=== PATIENT | male | born 1950 | race Caucasian/White ===

== ENCOUNTER 2023-07-31 13:33 | Outpatient (OUT) | payer MEDICARE, OTHER, SELFPAY ==
--- NOTE | 2023-07-31 14:13 | P.CN_ITS ---
Consult Note: HPI Data of Consult Patient: new to practice Consult date: 07/31/23 Requesting Physician: Tara Lozada NP Primary Care Provider: ZAYRA AQUINO Consult Narrative Reason for consult: establish Narrative: Michael Vaughn a pleasant 73 year old male presents for evaluation and management of chronic low back pain. Onset many years ago worsening over time. At todays visit pain 2-3/10 in low back without radiculopathy, intensifies to 7-8/10 at times. Pain is worst with twisting, pulling, pushing, bending, stairs, activity, standing, walking. Pain improved with heat, sitting, massage. Patient is a diabetic. Finds mild benefit to motrin, tizanidine, and chiropractor. Patient has been evaluated by Dr Denney who thinks patient is a candidate for right knee replacement when he is ready. Patient has utilized medical marijuana in the past for anxiety and pain but this caused falls. Patient has had two falls with injury to head and right arm in the last month, patient reports he trips over uneven surfaces. cc:: CC: Tara Lozada NP Review of Systems ROS Status of ROS 10 or more systems reviewed and unremark able except as noted in history and below Musculoskeletal Reports: back pain, extremity pain and extremity swelling Exam Constitutional Documenting provider has reviewed patient's vital signs: yes Common normals: no apparent distress, oriented x3, healthy appearing, alert and well nourished General appearance: cooperative HENMT Common normals: normocephalic, hearing grossly normal bilaterally and moist oral mucous membranes Head and scalp: normocephalic Eye Common normals: PERRL Pupil: PERRL Neck & C-Spine Common normals: full ROM General: normal visual inspection Cervical spine: cervical ROM normal, pain with cervical ROM and paracervical muscle tenderness Chest Common normals: inspection of chest normal Respiratory Common normals: normal respiratory effort, no retractions and no use of accessory muscles Back & Pelvis Lumbar spine/lower back: ROM limited, pain with ROM and straight leg raise negative bilaterally Extremity Other: right arm nonpitting edema, pulses intact bilaterally no discoloration of arm/hand bruising and purple discoloration to right hand, patient denies numbness tingling weakness, popping sensation with flexion, extension, rotation Neuro Common normals: oriented x3, CN's II-XII intact bilaterally, moves all extremities, no focal motor deficits, no sensory deficits noted and deep tendon reflexes 2+ bilaterally Sensorium/orientation: alert Motor exam: strength 5/5 throughout and no movement abnormalities noted Psych Common normals: mental status grossly normal, thought process normal, cooperative, affect normal, speech normal and activity/motor behavior normal Speech: normal speech Thought process: normal thought process Results Additional Findings Additional findings: I have checked an OARRS report on this patient today and there are no aberrancies noted in the prescribing history.?? A drug screen was completed and reviewed within the last year, and if there has not been a drug screen completed we ordered one today to monitor higher risk, state monitored pain medication use. As part of providing excellent, safe, comprehensive care, the following was completed at our patient's visit: 1. A medication reconciliation and review to ensure accurate knowledge of current/active medications, including asking our patients to inform us about any krae-urn-dusmtme medications or herbal remedies/nutritional supplements/alternative remedies. 2. A review to specifically ensure our patients have had annual screening for: elevated body mass index (BMI), tobacco use, screening for depression, and screening for unhealthy alcohol use. When screening is concerning, patients are provided with education and the specific recommendation to discuss the concerning health issue and treatment options with their primary care provider. Assessment and Plan Assessment and Plan (1) Edema of right forearm: (2) Cervical spondylosis: (3) Lumbar spondylosis: (4) Fall: Assessment and Plan: 2 falls with head impact no LOC right arm nonpitting edema, pulses intact bilaterally no discoloration of arm/hand bruising and purple discoloration to right hand, patient denies numbness tingling weakness, popping sensation with flexion, extension, rotation. Patient utilizes both arms to stand and with two recent falls I recommend ER evaluation of right arm Qualifiers: Encounter type: initial encounter Qualified Code(s): W19.XXXA - Unspecified fall, initial encounter Plan cervical spine and lumbar spine xray with flexion and extension 2 falls with head impact no LOC right arm nonpitting edema, pulses intact bilaterally no discoloration of arm/hand bruising and purple discoloration to right hand, patient denies n umbness tingling weakness, popping sensation with flexion, extension, rotation. Patient utilizes both arms to stand and with two recent falls I recommend ER evaluation of right arm. I spoke to Jenna PEARL in ER regarding patient. f/u 1 week to review xrays
== END 2023-07-31 13:34 | disposition home or self-care (01) ==
LOC: PM 13:34
PROVIDERS: PCP Family Medicine; Visit Provider Nurse Practitioner
DX: M47.816 Spondylosis without myelopathy or radiculopathy, lumbar region (principal); M47.812 Spondylosis without myelopathy or radiculopathy, cervical region; R60.0 Localized edema; Z91.81 History of falling
CPT/HCPCS: G0463

== ENCOUNTER 2023-07-31 14:35 | Emergency (ER) | payer MEDICARE, OTHER, SELFPAY ==
[2023-07-31 14:38] VITALS: BP 149/89; PULSE 67; RESP 16; TEMP 36.9; O2SAT 99; BMI 30.4
--- NOTE | 2023-07-31 14:45 | XR_ITS ---
The [address] [address] Patient Name: ANGELIC CABRERA MRN: [id number] date: 1950 Sex: M Assigned Patient Location: ER Current Patient Location: ER Accession/Order Number: [id number] Exam Date: 07/31/2023 14:53 Report Date: 07/31/2023 15:22 At the request of: NATALIE PEAÑ Procedure: XR elbow RT min 3V EXAM: XR forearm RT 2V, XR elbow RT min 3V TECHNIQUE: PA and lateral views right forearm. AP, lateral and oblique views right elbow HISTORY: fall COMPARISON: None. FINDINGS: No fracture or dislocation. Severe soft tissue swelling most significant dorsally over the forearm and elbow. Moderate spurring of the elbow. XR/XR elbow RT min 3V IMPRESSION: No acute fracture or dislocation. Electronically authenticated by: DUDLEY NEGRON Date: 07/31/2023 15:22
--- NOTE | 2023-07-31 14:45 | CT_ITS ---
[address] [address] Patient Name: ANGELIC CABRERA MRN: [id number] date: 1950 Sex: M Assigned Patient Location: ER Current Patient Location: Accession/Order Number: [id number] Exam Date: 07/31/2023 14:53 Report Date: 07/31/2023 15:15 At the request of: NATALIE PEÑA Procedure: CT cervical spine wo con EXAMINATION: CT cervical spine wo con TECHNIQUE: Axial CT images were obtained through the cervical spine. Sagittal and coronal reformatted images were also obtained. Dose reduction techniques were achieved by using automated exposure control and/or adjustment of mA and/or kV according to patient size and/or use of iterative reconstruction technique. HISTORY: fall. COMPARISON: None. FINDINGS: Bones: No fracture Alignment: No traumatic subluxation. Arthritic changes: Moderate to severe spondylosis of the mid and lower cervical spine. Degenerative changes of the anterior C1 to articulation and bilaterally at the craniovertebral junction. Disc spaces: No gross disc herniation given limitation of CT scan. Soft tissues: No soft tissue mass or large hematoma. CT/CT cervical spine wo con IMPRESSION: No acute fracture or subluxation. Electronically authenticated by: DUDLEY NEGRON Date: 07/31/2023 15:15
--- NOTE | 2023-07-31 14:45 | CT_ITS ---
[address] [address] Patient Name: ANGELIC CABRERA MRN: [id number] date: 1950 Sex: M Assigned Patient Location: ER Current Patient Location: ER Accession/Order Number: [id number] Exam Date: 07/31/2023 14:53 Report Date: 07/31/2023 15:14 At the request of: NATALIE PEÑA Procedure: CT head/brain wo con EXAM: CT head/brain wo con CLINICAL INDICATION: fall COMPARISON: None TECHNIQUE: Axial CT images of the brain were obtained without contrast. Coronal and sagittal reformats were obtained. Dose reduction techniques were achieved by using automated exposure control and/or adjustment of mA and/or kV according to patient size and/or use of iterative reconstruction technique. FINDINGS: No intracranial hemorrhage, extra-axial fluid collection, hydrocephalus, midline shift, or acute large vessel territory infarction. No other mass effect. Mild patchy periventricular hypoattenuation is likely on the basis of chronic microvascular angiopathic changes. Mild symmetric global volume loss without lobar predominance. Commensurate prominence of the ventricular system. Basal cisterns are patent. No calvarial fracture. Normal soft tissues. Paranasal sinuses and mastoid air cells are well-aerated. CT/CT head/brain wo con IMPRESSION: No acute intracranial process. Electronically authenticated by: BRENT BAILEY Date: 07/31/2023 15:14
--- NOTE | 2023-07-31 14:45 | XR_ITS ---
The [address] [address] Patient Name: ANGELIC CABRERA MRN: [id number] date: 1950 Sex: M Assigned Patient Location: ER Current Patient Location: Accession/Order Number: [id number] Exam Date: 07/31/2023 14:53 Report Date: 07/31/2023 15:22 At the request of: NATALIE PEÑA Procedure: XR forearm RT 2V EXAM: XR forearm RT 2V, XR elbow RT min 3V TECHNIQUE: PA and lateral views right forearm. AP, lateral and oblique views right elbow HISTORY: fall COMPARISON: None. FINDINGS: No fracture or dislocation. Severe soft tissue swelling most significant dorsally over the forearm and elbow. Moderate spurring of the elbow. XR/XR forearm RT 2V IMPRESSION: No acute fracture or dislocation. Electronically authenticated by: DUDLEY NEGRON Date: 07/31/2023 15:22
--- NOTE | 2023-07-31 14:46 | ED_ITS ---
HPI - General Adult General Chief complaint: Extremity Injury, Upper Stated complaint: SWOLLEN HAND Time Seen by Provider: 07/31/23 14:41 Source: patient Mode of arrival: walk-in History of Present Illness HPI narrative: Patient is a 73-year-old male who presents to the emergency department for the evaluation of swelling and injury to the right arm. Patient states he fell approximately 6 days ago at home and fell backward hitting the back of his head. He reports continued pain to the neck. He was not evaluated after falling. He states he landed on his right elbow as well. He complains of pain to the elbow and forearm. He was seen at pain management today and referred to the ER for evaluation. He denies any pain to the hand although he is noted to have significant diffuse swelling of the elbow, right forearm and hand. No blood thinner usage. He denies visual changes or vomiting. He is able to ambulate. Pain is worse with range of motion at the right elbow. Related Data Home Medications Medication Instructions Recorded Confirmed buspirone 15 mg tablet 15 mg PO BID 07/31/23 07/31/23 carvedilol 6.25 mg tablet 6.25 mg PO BID 07/31/23 07/31/23 hydrochlorothiazide 25 mg tablet 25 mg PO DAILY 07/31/23 07/31/23 tamsulosin 0.4 mg capsule (Flomax) 0.4 mg PO DAILY 07/31/23 07/31/23 tizanidine 4 mg tablet 4 mg PO BID PRN muscle spasticity 07/31/23 07/31/23 venlafaxine 37.5 mg 37.5 mg PO DAILY 07/31/23 07/31/23 capsule,extended release 24 hr (Effexor XR) Previous Rx's Medication Instructions Recorded hydrocodone 5 mg-acetaminophen 325 1 tab PO Q6H PRN pain #12 tabs 07/31/23 mg tablet Allergies Allergy/AdvReac Type Severity Reaction Status Date / Time No Known Drug Allergies Allergy Verified 07/31/23 14:41 Review of Systems ROS Constitutional Denies: fever or chills Ears, nose, mouth, and throat Denies: throat pain Cardiovascular Denies: chest pain Respiratory Denies: shortness of breath Gastrointestinal Denies: nausea or vomiting Musculoskeletal Reports: neck pain, extremity pain, extremity swelling, joint pain, limited range of motion and joint swelling; Denies: back pain Integumentary/Breast Denies: rash Neurological Denies: headache Endocrine Denies: excessive urination Hematologic/Lymphatic Denies: easy bruising or easy bleeding Exam Narrative Exam Narrative: Gen.: Awake, alert, in no distress Head: Normocephalic, atraumatic ENT: Moist mucous membranes; Normal range of motion at the cervical spine with diffuse mild tenderness of the paraspinal muscles Respiratory: No respiratory distress Extremities: Joint effusion noted to the right posterior elbow with diffuse swelling of the right elbow, forearm and right hand. No bony tenderness of the right hand or wrist. 2+ right radial pulse. Diffusely tender to palpation at the right elbow, pain with range of motion of flexion and extension at the right elbow. Psych: Normal mood and affect Neuro: No focal neuro deficit Skin: Warm, dry, intact Constitutional Vital Signs, click to edit/add: Last Vital Signs Temp 98.4 F 07/31/23 14:38 Pulse 67 07/31/23 14:38 Resp 16 07/31/23 14:38 BP 149/89 H 07/31/23 14:38 Pulse Ox 99 07/31/23 14:38 O2 Del Method Room Air 07/31/23 14:38 Course Vital Signs Vital signs: Vital Signs Temperature 98.4 F 07/31/23 14:38 Pulse Rate 67 07/31/23 14:38 Respiratory Rate 16 07/31/23 14:38 Blood Pressure 149/89 H 07/31/23 14:38 Pulse Oximetry 99 07/31/23 14:38 Oxygen Delivery Method Room Air 07/31/23 14:38 Temperature 98.4 F 07/31/23 14:38 Pulse Rate 67 07/31/23 14:38 Respiratory Rate 16 07/31/23 14:38 Blood Pressure 149/89 H 07/31/23 14:38 Pulse Oximetry 99 07/31/23 14:38 Oxygen Delivery Method Room Air 07/31/23 14:38 Medical Decision Making MDM Narrative Medical decision making narrative: Patient with a benign exam other than right upper extremity swelling to the forearm. He declined pain medication in the ER. He is alert and oriented, ambulatory and in no distress with stable vital signs. CT of the C-spine and head are unremarkable per the radiologist. Radiologist read the right elbow x- ray and right forearm x-rays is negative as well. These x-rays were reviewed by myself and Dr. Mcclain, we noted a posterior fat pad and anterior sail sign combined with the patient's joint effusion and significant swelling, we are concerned he has an occult right elbow fracture. Patient was made aware of this. He would like to follow-up with Dr. Denney. He was placed in a long posterior splint of the right upper extremity and sling and remains neurovascularly intact. He was encouraged to elevate the arm, follow-up with orthopedics and return to the ER if symptoms change or worsen. Short course of analgesics was sent for home. Medical Records Medical records reviewed: Yes I reviewed the patient's medical records Imaging Data CT scan - head: Attestation: I have reviewed the pertinent imaging results. Radiologist's impression: ITS Impressions Cervical Spine CT 07/31/23 14:45 IMPRESSION: No acute fracture or subluxation. Electronically authenticated by: DUDLEY NEGRON Date: 07/31/2023 15:15 Elbow X-Ray 07/31/23 14:45 IMPRESSION: No acute fracture or dislocation. Electronically authenticated by: DUDLEY NEGRON Date: 07/31/2023 15:22 ADDENDUM: 07/31/23 1538 IMPRESSION: No acute fracture or dislocation. Electronically authenticated by: DUDLEY NEGRON Date: 07/31/2023 15:35 Forearm X-Ray 07/31/23 14:45 IMPRESSION: No acute fracture or dislocation. Electronically authenticated by: DUDLEY NEGRON Date: 07/31/2023 15:22 ADDENDUM: 07/31/23 1538 IMPRESSION: No acute fracture or dislocation. Electronically authenticated by: DUDLEY NEGRON Date: 07/31/2023 15:[address] 07/31/23 14:45 IMPRESSION: No acute intracranial process. Electronically authenticated by: BRENT BAILEY Date: 07/31/2023 15:14 Discharge Plan Discharge Chief Complaint: Extremity Injury, Upper Clinical Impression: Closed fracture of right elbow, Effusion of elbow joint, right Patient Disposition: Home, Self-Care Time of Disposition Decision: 15:44 Condition: Good Prescriptions / Home Meds: New hydrocodone-acetaminophen 5-325 mg tablet 1 tab PO Q6H PRN (Reason: pain) Qty: 12 0RF Rx Instructions: DX: M25.521 No Action tizanidine 4 mg tablet 4 mg PO BID PRN (Reason: muscle spasticity) tamsulosin [Flomax] 0.4 mg capsule 0.4 mg PO DAILY venlafaxine [Effexor XR] 37.5 mg capsule,extended release 24hr 37.5 mg PO DAILY carvedilol 6.25 mg tablet 6.25 mg PO BID Rx Instructions: must administer with a meal/food buspirone 15 mg tablet 15 mg PO BID hydrochlorothiazide 25 mg tablet 25 mg PO DAILY Instructions: Elbow Fracture (ED), How to Use a Sling (ED), Swollen Joint (ED) Stand Alone Forms: Portal Instructions Referrals: Shamar Denney MD [Physician] - 1 week ([phone]) ZAYRA AQUINO [Primary Care Provider] - 1 week
== END 2023-07-31 15:58 | disposition home or self-care (01) ==
PROVIDERS: Emergency Provider Emergency Medicine; PCP Family Medicine
DX: M47.816 Spondylosis without myelopathy or radiculopathy, lumbar region (principal); M47.812 Spondylosis without myelopathy or radiculopathy, cervical region; R60.0 Localized edema; S42.401A Unspecified fracture of lower end of right humerus, initial encounter for closed fracture; M25.421 Effusion, right elbow; Z79.899 Other long term (current) drug therapy; W19.XXXA Unspecified fall, initial encounter
CPT/HCPCS: 29105; 70450; 72125; 73080; 73090; 99284; G0463

== ENCOUNTER 2023-08-07 15:03 | Outpatient (OUT) | payer MEDICARE, OTHER, SELFPAY ==
--- OUTSIDE RECORDS SUMMARY | 2023-08-07 15:07 | XMS_ITS | CCD ---
Author Name Unknown Address [address] [place] [address] Organization [facility] Care Team Providers Care Policy Intern Name Role Phone KENIA, RUGEN Admitting Unavailable KENIA RUGEN Attending Unavailable MISC, DOCTOR Primary Care Unavailable KENIA, RUGEN Consulting Unavailable REZNO MONACORI Admitting Unavailable MARY MONACO Attending Unavailable KENIA, RUGEN Primary Care Unavailable MARY MONACO Consulting Unavailable Mary, Giorgio Attending Provider [phone] Mary Monaco Primary Care Provider MARY MONACO Attending Unavailable LORETO LE Attending Unavailable MARY MONACO Attending Unavailable Unavailable Unavailable Unavailable Problems Problem Classification Problem Date Documented Da te Episodic/Chronic Immunizations and screening for infectious disease (4 sources) Encounter for screening for other viral diseases; Translations: [ENC SCREENING FOR OTH VIRAL DZ] Onset: 02-25-2020 Episodic Results Test Name Value Interpretation Reference Range Facil ity CREATININEon 04-26-2020 Creatinine [Mass/Vol] 0.87 mg/dL Normal 0.66-1.25 [facility] Comment on above: Performed By: #### C FRANSISCO #### [facility] [address] [address] Courtney Claudio Creatinine [Mass/Vol] mg/dL Normal >=60 [facility] Comment on above: Performed By: #### C FRANSISCO #### [facility] [address] [id number] Courtney Colemanen COVID-19 PCRon 02-26-2020 SARS-CoV-2, RONEL Not Detected Normal Not Detected [facility] Comment on above: Result Comment: This test was developed and its performance characteristics determined by [facility]. This test has not been FDA cleared or approved. This test has been authorized by FDA under an Emergency Use Authorization (EUA). This test is only authorized for the duration of time the declaration that circumstances exist justifying the authorization of the emergency use of in vitro diagnostic tests for detection of SARS-CoV-2 virus and/or diagnosis of COVID-19 infection under section 564(b)(1) of the Act, 21 U.S.C. 360bbb-3(b)(1), unless the authorization is terminated or revoked sooner. When diagnostic testing is negative, the possibility of a false negative result should be considered in the context of a patient's recent exposures and the presence of clinical signs and symptoms consistent with COVID-19. An individual without symptoms of COVID-19 and who is not shedding SARS-CoV-2 virus would expect to have a negative (not detected) result in this assay. Performed By: #### C VDPCR #### [facility] [address] [place] [address] Courtney Claudio Encounters Encounter Date Encounter Type Care Provider Facility Start: 08-04-2023 End: 08-04-2023 ambulatory LORETO Strickland APLING Not Available Start: 07-16-2023 End: 07-16-2023 ambulatory MARY MONACO Not Available Start: 07-03-2023 End: 07-03-2023 ambulatory MARY MONACO Not Available Start: 09-13-2020 End: 09-13-2020 [facility] [address] Start: 05-02-2020 [facility] Start: 04-26-2020 End: 04-27-2020 Patient encounter procedure MARY MONACO Facility:[facility] Start: 02-25-2020 End: 02-26-2020 Patient encounter procedure RUGALEJANDRINA MCKEONA Facility:[facility] Encounter for preprocedural laboratory examination [facility] Payers Date Payer Category Payer Unknown [id number] 1957 Medicare [id number] 1957 Private Health Insurance [id number] 1950 Unknown [id number] [id number] 1950 Unknown [id number] [id number] [id number] 1950 Unknown [id number] 2.16.84 [id number] 1950 Unknown [id number] 1950 Unknown [id number] Self-pay Self Pay [id number] Unknown Self Pay [id number] Social History Date Type Detail Facility Tobacco smoking stat [facility] Unknown if ever smoked [facility] Start: 1950 Sex Assigned At Male [facility] Goals Date Patient Goal Desired Activity /State Summary Purpose Family History No Family History Records FoundNo Family History Records Found Advance Directives No Advanced Directives Records Found Advance Directive Response Recorded Date/ Time Advance Directives No May 4:12pm Chief Complaint and Reason for Visit Chief Complaint R leg Lymphedema Assessments No Assessments Information Available Additional Source Comments (unrecognized sect ion and content) No Status Records FoundNo Status Records Found INFORMATION SOURCE (unrecogn ized section and content) DATE CREATED AUTHOR 05/03/2020 [facility] DATE CREATED AUTHOR AUTHOR'S ORGANIZ ATION 08/04/2023 [facility] FOR RECORDS PERTAINING TO PATIENTS WHO ARE OR HAVE BEEN ENROLLED IN A CHEMICAL DEPENDENCY/SUBSTANCEABUSE PROGRAM, SOME INFORMATION MAY BE OMITTED. This clinical summary was aggregated from multiple sources. Caution should be exercised in using it in the provision of clinical care. This summary normalizes information from multiple sources, and as a consequence, information in this document may materially change the coding, format and clinical context of patient data. In addition, data may be omitted in some cases. CLINICAL DECISIONS SHOULD BE BASED ON THE PRIMARY CLINICAL RECORDS. [facility] [employer] [facility]. provides no warranty or guarantee of the accuracy or completeness of information in this document.
== END 2023-08-07 15:04 | disposition home or self-care (01) ==
LOC: PM 15:03
PROVIDERS: PCP Family Medicine; Visit Provider Nurse Practitioner
DX: M54.2 Cervicalgia (principal)

== ENCOUNTER 2023-08-07 15:22 | Outpatient (OUT) | payer MEDICARE, OTHER, SELFPAY ==
--- NOTE | 2023-08-07 15:33 | XR_ITS ---
The [address] [id number] Patient Name: ANGELIC CABRERA MRN: [id number] date: 1950 Sex: M Assigned Patient Location: [facility] Current Patient Location: [facility] Accession/Order Number: [id number] Exam Date: 08/07/2023 15:46 Report Date: 08/07/2023 19:08 At the request of: ANDRES REDDY Procedure: XR lumbar spine 6V w bending EXAM: XR lumbar spine 6V w bending HISTORY: lumbar back pain COMPARISON: None. TECHNIQUE: 7 view study FINDINGS: Vertebral bodies are normal in height. There is disc space narrowing at L4-5 and L5-S1 with endplate sclerosis and anterior osteophytosis. More moderate disc space narrowing at L2-3 and L3-4. There is facet arthropathy at L3-4, L4-5, and L5-S1. Comparison of flexion and extension views shows limited motion without visible segmental instability. XR/XR lumbar spine 6V w bending IMPRESSION: Multilevel lumbar spondylosis. Electronically authenticated by: Lucia PEREIRA Date: 08/07/2023 19:08
--- OUTSIDE RECORDS SUMMARY | 2023-08-07 15:37 | XMS_ITS | CCD ---
Author Name Unknown Address [address] [place] [address] Organization [facility] Care Team Providers Care Meat Specialist Name Role Phone KENIA, RUGEN Admitting Unavailable KENIA RUGEN Attending Unavailable MISC, DOCTOR Primary Care Unavailable KENIA, RUGEN Consulting Unavailable RENZO MONACORI Admitting Unavailable MARY MONACO Attending Unavailable KENIA, RUGEN Primary Care Unavailable MARY MONACO Consulting Unavailable Mary, Giorgio Attending Provider Mary Monaco Primary Care Provider MARY MONACO [...] 04-26-2020 Creatinine [Mass/Vol] 0.87 mg/dL Normal 0.66-1.25 [facility] Comment on above: Performed By: #### C FRANSISCO #### [facility] [address] [address] Courtney Claudio Creatinine [Mass/Vol] mg/dL Normal >=60 [facility] Comment on above: Performed By: #### C FRANSISCO #### [facility] [address] [id number] Courtney Colemanen COVID-19 PCRon 02-26-2020 SARS-CoV-2, RONEL Not Detected Normal Not Detected [facility] Comment on above: Result Comment: This test was developed and its performance characteristics determined by [employer]. This test has not been FDA cleared [...] assay. Performed By: #### C VDPCR #### [facility] [address] [place] [address] Courtney Claudio Encounters Encounter Date Encounter Type Care Provider Facility Start: 08-04-2023 End: 08-04-2023 ambulatory LORETO Strickland APLING Not Available Start: 07-16-2023 End: 07-16-2023 ambulatory MARY MONACO Not Available Start: 07-03-2023 End: 07-03-2023 ambulatory MARY MONACO Not Available Start: 09-13-2020 End: 09-13-2020 [facility]charged [facility]Director [employer] [address] Start: 05-02-2020 [facility] Start: 04-26-2020 End: 04-27-2020 Patient encounter procedure MARY MONACO Facility:[facility]1 Start: 02-25-2020 End: 02-26-2020 Patient encounter procedure RUGALEJANDRINA MCKEONA Facility:[facility]1 Encounter for preprocedural laboratory examination [facility] Payers Date Payer Category Payer Unknown [id number] 1957 Medicare [id number] 1957 Private Health Insurance [id number] 1950 Unknown [id number] 2.16.84 [id number] 1950 Unknown [id number] 2.16.84 [id number] 1950 Unknown [id number] 2.16.84 [id number] 1950 Unknown [id number] 2.16.840 .[id number] 1950 Unknown [id number] [id number] .[id number] Self-pay Self Pay [id number] Unknown Self Pay [id number] Social History Date Type Detail Facility Tobacco smoking stat [facility] Unknown if ever smoked [facility] Start: 1950 Sex Assigned At Male [facility] Goals Date Patient Goal Desired [...] DATE CREATED AUTHOR AUTHOR'S ORGANIZ ATION 08/04/2023 [facility] dical Specialists [facility] FOR RECORDS PERTAINING TO PATIENTS WHO ARE [...] BE BASED ON THE PRIMARY CLINICAL RECORDS. [facility] [facility]. provides no warranty or guarantee of the accuracy or completeness of information in this document.
== END 2023-08-07 15:23 | disposition home or self-care (01) ==
LOC: RAD 15:23
PROVIDERS: PCP Family Medicine; Visit Provider Nurse Practitioner
DX: M47.816 Spondylosis without myelopathy or radiculopathy, lumbar region (principal)
CPT/HCPCS: 72114

== ENCOUNTER 2023-08-18 09:46 | Day surgery (SDC) | payer MEDICARE, OTHER, SELFPAY ==
--- OUTSIDE RECORDS SUMMARY | 2023-08-18 09:50 | XMS_ITS | CCD ---
Author Name Unknown Address [address] [place] [address] Organization [facility] Care Team Providers Care Leather Tooler Name Role Phone KENIA, RUGEN Admitting Unavailable [...] 04-26-2020 Creatinine [Mass/Vol] 0.87 mg/dL Normal 0.66-1.25 [facility] Comment on above: Performed By: #### C FRANSISCO #### [facility] [address] [address] Courtney Claudio Creatinine [Mass/Vol] mg/dL Normal >=60 [facility] Comment on above: Performed By: #### C FRANSISCO #### [facility] [address] [id number] Courtney Colemanen COVID-19 PCRon 02-26-2020 SARS-CoV-2, RONEL Not Detected Normal Not Detected [facility] Comment on above: Result Comment: This test was developed and its performance characteristics determined by [employer]. This test has not been FDA cleared [...] assay. Performed By: #### C VDPCR #### [facility] [address] [place] [address] Courtney Claudio Encounters Encounter Date Encounter Type Care Provider Facility Start: 08-04-2023 End: 08-04-2023 ambulatory LORETO Strickland APLING Not Available Start: 07-16-2023 End: 07-16-2023 ambulatory MARY MONACO Not Available Start: 07-03-2023 End: 07-03-2023 ambulatory MARY MONACO Not Available Start: 09-13-2020 End: 09-13-2020 Discharged [facility]Break Up Worker [address] Start: 05-02-2020 [facility] Start: 04-26-2020 End: 04-27-2020 Patient encounter procedure MARY MONACO Facility:[facility]1 Start: 02-25-2020 End: 02-26-2020 Patient encounter procedure RUGALEJANDRINA MCKEONA Facility:[facility]1 Encounter for preprocedural laboratory examination [facility] Payers Date Payer Category Payer Unknown [id number] 1957 Medicare [id number] 1957 Private Health Insurance [id number] 1950 Unknown [id number] 2.16.84 [id number] 1950 Unknown [id number] 2.16.84 [id number] 1950 Unknown [id number] 2.16.84 [id number] 1952 Unknown [id number] 2.16.840 .[id number] 1950 Unknown [id number] 2.16.840 .[id number] Self-pay Self Pay [id number] Unknown Self Pay [id number] Social History Date Type Detail Facility Tobacco smoking stat [facility] Unknown if ever smoked [facility] Start: 1950 Sex Assigned At Male F [facility] Goals Date Patient Goal Desired [...] DATE CREATED AUTHOR AUTHOR'S ORGANIZ ATION 08/04/2023 [facility] dical Specialists [facility] FOR RECORDS PERTAINING TO PATIENTS [...] BE BASED ON THE PRIMARY CLINICAL RECORDS. [facility] [employer] [facility]. provides no warranty or guarantee of the accuracy or completeness of information in this document.
[2023-08-18 10:22] VITALS: BP 158/84; PULSE 55; RESP 16; TEMP 36.1; O2SAT 100
[2023-08-18] MEDS: LIDOCAINE HCL 2% PF 100 MG/5 ML VIAL 2 ML INJ (11:06)
[2023-08-18] MEDS: BUPIVACAINE HCL 0.25% PF 25 MG/10 ML VIAL 8 ML INJ (11:06)
[2023-08-18 11:07] VITALS: BP 145/73; BP 154/78; PULSE 59; RESP 18; O2SAT 93; O2SAT 94
--- NOTE | 2023-08-18 11:08 | W.PM.PROCNOT ---
Date of procedure: 08/18/23 Pre-op diagnosis: Lumbar spondylosis Post-op diagnosis: same as pre-op Procedure: Procedure: Bilateral L4-5, L5-S1 medial branch block Medications: Bupivacaine 0.25% 6cc The patient was seen and examined in the preoperative holding area.? An informed consent was obtained and placed on the chart.? The patient was brought to the medical procedure unit and placed in the prone position.? A timeout was completed verifying correct patient, procedure site, positioning, plan, and special equipment.? Using aseptic technique, the needle was placed at left L4. Under direct fluoroscopic visualization a Quincke-tipped spinal needle was advanced to the junction of the superior articulating process with the transverse process at the designated medial branch segment.? Preceded by negative aspiration, the above-mentioned injectate was placed in 1 mL aliquots.? The procedure was repeated at left L5, S1.? The needle was removed and insertion site was covered. The same procedure, at the same levels, was completed on the right side. The patient was taken to the postprocedural recovery area and monitored for an appropriate length of time before found suitable for discharge in the company of a responsible adult. Anesthesia: Local Surgeon: Bogdan Calle Pathology: none sent Condition: stable Disposition: no change
== END 2023-08-18 11:14 | disposition home or self-care (01) ==
LOC: SURGOUT 09:46
PROVIDERS: PCP Family Medicine; Visit Provider Anesthesiology
DX: M47.816 Spondylosis without myelopathy or radiculopathy, lumbar region (principal)
CPT/HCPCS: 64493; 64494; J0665

== ENCOUNTER 2023-09-03 12:32 | Outpatient (OUT) | payer MEDICARE, OTHER, SELFPAY ==
--- OUTSIDE RECORDS SUMMARY | 2023-09-03 12:36 | XMS_ITS | CCD ---
Author Name Unknown Address [address] [facility] [address] [place] [address] Organization [facility] Care Team Providers Care Director Of Child Welfare Services Name Role Phone ZAYRA AQUINO Admitting Unavailable ZAYRA AQUINO Attending Unavailable MISC, DOCTOR Primary Care Unavailable ZAYRA AQUINO Consulting Unavailable MARY MONACO Admitting Unavailable MARY MONACO Attending Unavailable ZAYRA AQUINO Primary Care Unavailable MARY MONACO Consulting Unavailable Giorgio Hernandez Attending Provider Mary Monaco Primary Care Provider aMry Monaco NP Unavailable MARY MONACO Attending Unavailable LORETO LE Attending Unavailable MARY MONACO Attending Unavailable LORETO LE Attending Unavailable LORETO LE Referring Unavailable Unavailable Unavailable Unavailable Medications Current Medications Medication Drug Class(es) Dates Sig (Normalized) Sig (Original) acetaminophen 325 mg / HYDROcodone bitartrate 5 mg oral tablet (3 sources) Opioid Agonist HYDROcodone-acet aminoph en ([place]) 5-325 MG tablet ALPRAZolam 0.25 mg oral tablet (3 sources) Benzodiazepine Start: 07-10-20 23 take 1 tablet by mouth three times daily as needed for anxiety ALPRAZolam (Xanax) 0.25 MG tablet Indications: Anxiety Take 1 tablet (0.25 mg) by mouth 3 (three) times a day as needed for anxiety 30 tablet 0 07/10/2023 Active carvedilol 12.5 mg oral tablet (3 sources) alpha-Adrenergic Ivelisse, beta-Adrenergic Ivelisse Start: 02-19-20 23 take 1 tablet by mouth twice daily carvedilol (Coreg) 12.5 MG tablet Indications: Hypertriglyceridemia (CMS/HCC) TAKE ONE TABLET BY MOUTH TWICE A DAY 200 tablet 3 02/18/2023 Active hydroCHLOROthiazide 12.5 mg oral capsule (3 sources) Thiazide Diuretic Start: 07-28-19 24 take 1 capsule by mouth once daily in the morning hydroCHLOROthiazide (Microzide) 12.5 MG capsule Indications: Hypertension, unspecified type (CMS/HCC) TAKE ONE CAPSULE BY MOUTH EVERY MORNING 90 capsule 0 07/28/2023 Active tamsulosin hydrochloride 0.4 mg oral capsule (3 sources) alpha-Adrenergic Ivelisse Start: 04-14-20 23 take 1 capsule by mouth once daily tamsulosin (Flomax) 0.4 MG 24 hr capsule Indications: Benign prostatic hyperplasia, unspecified whether lower urinary tract symptoms present TAKE ONE CAPSULE BY MOUTH DAILY 90 capsule 1 04/14/2023 Active tiZANidine 4 mg oral tablet (3 sources) Central alpha-2 Adrenergic Agonist Start: 07-22-19 24 take 1 tablet by mouth every six hours as needed for muscle spasms tiZANidine (Zanaflex) 4 MG tablet Indications: Muscle spasm of back TAKE ONE TABLET BY MOUTH EVERY 6 HOURS NEEDED FOR MUSCLE SPASMS 30 tablet 0 07/22/2023 Active venlafaxine 75 mg oral tablet (3 sources) Serotonin and Norepinephrine Reuptake Inhibitor Start: 08-18-19 24 take 1 tablet by mouth three times daily at mealtime venlafaxine (Effexor) 75 MG tablet Indications: Adjustment disorder with anxiety (CMS/HCC) TAKE ONE TABLET BY MOUTH THREE TIMES A DAY WITH FOOD 300 tablet 0 08/18/2023 Active Completed/Discontinued Medications Medication Drug Class(es) Dates Sig (Normalized) Sig (Original) busPIRone hydrochloride 5 mg oral tablet (3 sources) Start: 04-01-2023 End: 09-01-2023 take 1 tablet by mouth four times daily as needed for anxiety busPIRone (Buspar) 5 MG tablet Indications: Adjustment disorder with anxiety (CMS/HCC) Take 1 tablet (5 mg) by mouth 4 (four) times a day as needed (anxiety). 120 tablet 3 04/01/2023 09/01/2023 Discontinued (Med list cleanup) Problems Active Problems Problem Classification Problem Date Documented Date Episodic/Chronic Acute and chronic tonsillitis (3 sources) Hypertrophy of tonsils AND adenoids; Translations: [Hypertrophy of tonsils with hypertrophy of adenoids] Onset: 02-18-2023 02-18-2023 Chronic Adjustment disorders (6 sources) Adjustment disorder with anxious mood; Translations: [Adjustment disorder with anxiety] Onset: 02-18-2023 02-18-2023 Chronic Alcohol-related disorders (6 sources) Alcohol abuse; Translations: [Alcohol abuse, uncomplicated] Onset: 02-18-2023 02-18-2023 Chronic Disorders of lipid metabolism (3 sources) Hypertriglyceridemia; Translations: [Pure hyperglyceridemia] Onset: 02-18-2023 02-18-2023 Chronic Essential hypertension (3 sources) Hypertensive disorder; Translations: [Essential (primary) hypertension] Onset: 02-18-2023 02-18-2023 Chronic Hyperplasia of prostate (3 sources) Benign prostatic hyperplasia; Translations: [Benign prostatic hyperplasia without lower urinary tract symptoms] Onset: 02-18-2023 02-18-2023 Chronic Immunizations and screening for infectious disease (4 sources) Encounter for screening for other viral diseases; Translations: [ENC SCREENING FOR OTH VIRAL DZ] Onset: 02-25-2020 Episodic Osteoarthritis (3 sources) Osteoarthritis of right knee joint; Translations: [Unilateral primary osteoarthritis, right knee] Onset: 02-18-2023 02-18-2023 Chronic Other nervous system disorders (3 sources) Carpal tunnel syndrome; Translations: [Carpal tunnel syndrome, unspecified upper limb] Onset: 02-18-2023 02-18-2023 Chronic Other non-traumatic joint disorders (2 sources) Pain in elbow; Translations: [Pain in right elbow] 08-28-2023 Episodic Other nutritional; endocrine; and metabolic disorders (3 sources) Disorder of carbohydrate metabolism; Translations: [Other disorders of intestinal carbohydrate absorption] Onset: 02-18-2023 02-18-2023 Chronic Other nutritional; endocrine; and metabolic disorders (3 sources) Morbid obesity; Translations: [Morbid (severe) obesity due to excess calories] Onset: 02-18-2023 02-18-2023 Chronic Residual codes; unclassified (3 sources) Sleep apnea; Translations: [Sleep apnea, unspecified] Onset: 02-18-2023 02-18-2023 Chronic Sprains and strains (2 sources) Unspecified sprain of right elbow, subsequent encounter; Translations: [Other specified aftercare] 08-28-2023 Episodic Superficial injury; contusion (2 sources) Contusion of right elbow; Translations: [Contusion of right elbow, subsequent encounter] 08-28-2023 Episodic Past or Other Problems Problem Classification Problem Date Documented Da te Episodic/Chronic Other acquired deformities (3 sources) Acquired spondylolisthesis ; Translations: [Spondylolisthesi s, site unspecified] Onset: 02-18-2023 02-18-2023 Episodic Other nervous system disorders (3 sources) Paresthesia; Translations: [Paresthesia of skin] Onset: 02-18-2023 02-18-2023 Episodic Results Test Name Value Interpretation Reference Range Facil ity XR Elbow - right 2 Viewson 0 09-01-2023 Imaging Result: September 01, 2023 x-rays AP and lateral of the right elbow demonstrate calcification at the proximal portion of the olecranon with osteophyte formation around the elbow consistent with arthritis. No fractures are noted. Impression: Osteoarthritis of the right elbow Ever Denney D.O. [facility] Radiology Study observation (narrative) [facility] XR Elbow - right 2 ViewsOrde red By: Shamar Denney on 09-01-2023 [facility] iPointercar e Work Phone: CREATININEon 04-26-2020 Creatinine [Mass/Vol] 0.87 mg/dL Normal 0.66-1.25 [facility] Comment on above: Performed By: #### C FRANSISCO #### [facility] [address] [place] [address] Courtney Claudio Creatinine [Mass/Vol] mg/dL Normal >=60 [facility] Comment on above: Performed By: #### C FRANSISCO #### [facility] [address] [place] [address] Courtney Claudio COVID-19 PCRon 02-26-2020 SARS-CoV-2, RONEL Not Detected Normal Not Detected [facility] Comment on above: Result Comment: This test was developed and its performance characteristics determined by [employer]. This test has not been FDA cleared [...] assay. Performed By: #### C VDPCR #### [facility] [address] [place] [address] Courtney Claudio Encounters Encounter Date Encounter Type Care Provider Facility Start: 09-01-2023 End: 09-01-2023 ambulatory LORETO LE Not Available Start: 09-01-2023 [employer] flowsheet Loreto simmons BOTTLE WASHING MACHINE OPERATOR Work Phone: [facility] Start: 09-01-2023 BamArbov[employer]o flowsheet Loreto simmons BOTTLE WASHING MACHINE OPERATOR Work Phone: [facility] Start: 09-01-2023 End: 09-01-2023 Office outpatient visit 15 minutes Loreto Le BOTTLE WASHING MACHINE OPERATOR Work Phone: [facility] Comment on above: Right elbow pain (Pr imary Dx); Contusion of right elbow, subsequent encounter; Sprain of right elbow, subsequent encounter Start: 08-04-2023 End: 08-04-2023 ambulatory LORETO LE Not Available Start: 07-16-2023 End: 07-16-2023 ambulatory MARY MONACO Not Available Start: 07-03-2023 End: 07-03-2023 ambulatory MARY MONACO Not Available Start: 09-13-2020 End: 09-13-2020 Discharged Recurring Giorgio Hernandez [facility] [address] Start: 05-02-2020 Encounter for preprocedural laboratory examination ZAYRA AQUINO [facility] Start: 04-26-2020 End: 04-27-2020 Patient encounter procedure MARY MONACO Facility:[facility] Start: 02-25-2020 End: 02-26-2020 Patient encounter procedure ZAYRA AQUINO Facility:[facility] Encounter for preprocedural laboratory examination ZAYRA AQUINO [facility] Procedures Date Procedure Procedure Detail Performing Clinician Start: 09-01-2023 Radex elbow 2 views Yudy Le BOTTLE WASHING MACHINE OPERATOR Work Phone: Start: 03-17-2015 Colonoscopy Loreto elise BOTTLE WASHING MACHINE OPERATOR Work Phone: Plan of Treatment Date Care Activity Detail Author Start: 03-17-2025 Screening for malign ant neoplasm of colon [facility] Start: 07-16-2024 Pneumococcal Vaccine : 65+ Years (2 - PCV) Pneumococcal Vaccine: 65+ Years (2 - PCV) [facility] Comment on above: Postponed from 07/30 (Patient Refused) Start: 01-18-2024 Influenza vaccination Influenza Vacc ine (#1) [facility] Comment on above: Postponed from 03/21 (Patient Refused) Start: 09-15-2023 End: 09-15-2023 Patient encounter procedure 09/15/2023 1:15 PM EST Office Visit [facility] [address] [place] [id number] Loreto Le, BRADEN [address] [place] [address] [facility] Start: 07-04-2023 Medicare Annual Wellness (AWV) Medicare Annual Wellness (AWV) [facility] Start: 09-28-2021 Screening for malign ant neoplasm of colon FIT-DNA [facility] Start: 1950 Screening for malign ant neoplasm of colon [facility] Immunizations Immunization Date Immunization Notes Care Provider Fa cility 07-11-2022 Influenza, High-dose Seasonal, Quadrivalent, Preservative Free Loreto Le NP Work Phone: [facility] 07-11-2022 influenza virus vacc ine, unspecified formulation Loreto Le NP Work Phone: [facility] 07-17-2021 Influenza, High-dose Seasonal, Quadrivalent, Preservative Free Loreto Le NP Work Phone: [facility] 07-17-2021 Pfizer Purple Cap SARS-CoV-2 Vaccination Loreto Le BOTTLE WASHING MACHINE OPERATOR Work Phone: [facility] 04-20-2020 influenza, high dose seasonal, preservative-free Loreto Le BOTTLE WASHING MACHINE OPERATOR Work Phone: [facility] 07-30-2017 influenza, injectabl e, quadrivalent, contains preservative Loreto Le BOTTLE WASHING MACHINE OPERATOR Work Phone: [facility] 07-30-2017 pneumococcal polysaccharide vaccine, 23 valent Loreto Le BOTTLE WASHING MACHINE OPERATOR Work Phone: [facility] Payers Date Payer Category Payer Unknown [employer]ARA[employer] [facility] [id number] 2022-Present [address] [place] [address] [id number] 2022 Unknown [id number] 2017 Medicare MEDICARE MEDICAR E PART B [id number] 2017-[place] [address] Medicare [id number] 1959 Medicare [id number] 1959 Private Health Insurance [id number] 1952 Unknown [id number] 1952 Unknown [id number] [id number] 1952 Unknown [id number] [id number] 1952 Unknown [id number] [id number] 1952 Unknown [id number] [id number] 1952 Unknown [id number] [id number] 1952 Unknown [id number] [id number] Self-pay Self Pay [id number] Unknown Self Pay [id number] Social History Date Type Detail Facility Tobacco smoking stat [facility] Unknown if ever smoked [facility] Start: 1950 Sex Assigned At Male F [facility] Start: 08-04-2023 Tobacco smoking stat [facility] Ex-smoker [facility] End: 07-21-2003 History of tobacco use Current smoker [facility] End: 07-21-2003 History of tobacco use Cigarette Smoker [facility] Start: 08-04-2023 Tobacco use and exposure Smokeless tobacco non-user [facility] Start: 08-04-2023 End: 09-01-2023 Alcohol intake Current drinker of alcohol (finding) [facility] Start: 08-04-2023 End: 09-01-2023 History of Social function [facility] Start: 08-04-2023 End: 09-01-2023 Tobacco use panel [facility] Start: 07-03-2023 Alcohol Comment caffeine yes t ype: coffee [facility] Start: 1950 Sex Assigned At Not on file [facility] Goals Date Patient Goal Desired Activity /State History of Present illness Narrative 09-01-2023 Loreto Le NP - 09/01/2023 1:15 PM EST Note Date & Type Note Facility 09-01-2023 History of Presen t illness Narrative Subjective Patient ID: Michael Vaughn is a 73 y.o. male. RT Elbow *cast off and xrays Pt is RT handed Pt fell 5 weeks 2 days ago (DOI 07/26/23) and landed on Rt elbow. Pt was placed in a long posterior splint and prescribed [place]. Presents in LAC. Removed today. Denies pain. Admits aspirin and Tyl prn. Denies N/T. Denies waking at night. Notes swelling to RT elbow, forearm and hand. Denies ice, heat and creams. No sx. He notes he is going to pain management for his lower back and getting injections. Notes he wants knee replacements and wants to make an appointment for Dr. Denney to replace them after he is done getting back injections. He is not sure when he will be done getting the injections TX: [facility]/ED/XR/07/31/2023, sling, posterior splint, norco, XRAYS [facility] RT elbow/FA, LAC, XR [facility] 09/01/23 Objective Ortho Exam Elbow Musculoskeletal Exam Inspection Right Ecchymosis: none Swelling: diffuse Swelling comment: elbow,FA Deformity: none Palpation Right Tenderness: present (over the olecranon) Range of Motion Right Active Extension: 30 Active Flexion: 130 Range of motion additional comments: Equal supination/pronation XR elbow 1 or 2 views right Imaging Result: September 01, 2023 x-rays AP and lateral of the right elbow demonstrate calcification at the proximal portion of the olecranon with osteophyte formation around the elbow consistent with arthritis. No fractures are noted. Impression: Osteoarthritis of the right elbow Ever Denney D.O. Assessment/Plan Encounter Diagnoses: ICD-10-CM 1. Right elbow pain M25.521 XR elbow 1 or 2 views right 2. Contusion of right elbow, subsequent encounter S50.01XD 3. Sprain of right elbow, subsequent encounter S53.401D May begin to work on gentle ROM of the elbow, f/U in 2 weeks, continue with bruce therapy, documented in this encounter [facility] Evaluation note Note Date & Type Note Facility Evaluation note Diagnosis Right elbow pain- Primary Pain in joint, upper arm Contusion of right elbow, subsequent encounter Sprain of right elbow, subsequent encounter documented in this encounter [facility] Summary Purpose Family History No Family History [...] content) DATE CREATED AUTHOR 05/03/2020 [facility] DATE CREATED AUTHOR AUTHOR'S TRENTON ATLEW 09/02/2023 [facility] Care Teams (unrecognized sec tion and content) Director Of Child Welfare Services Relationship Specialty Start Date End Date Mary Monaco BOTTLE WASHING MACHINE OPERATOR [address] [facility] [address] [place] [address] PCP - ACO Reach 12/12/22 Director Of Child Welfare Services Relationship Specialty Start Date End Date Mary Monaco BOTTLE WASHING MACHINE OPERATOR [address] [facility] [address] [place] [address] PCP - ACO Reach 12/12/22 FOR RECORDS PERTAINING TO PATIENTS WHO ARE [...] BE BASED ON THE PRIMARY CLINICAL RECORDS. [facility] [employer] [facility]. provides no warranty or guarantee of the accuracy or completeness of information in this document.
--- NOTE | 2023-09-03 12:54 | PM.CN ---
Consult Note: HPI Data of Consult Patient: new to practice Consult date: 07/31/23 Requesting Physician: Tara Lozada NP Primary Care Provider: ZAYRA AQUINO Consult Narrative Reason for consult: establish Narrative: Michael Vaughn a pleasant 73 year old male presents for evaluation and management of chronic low back pain. Onset many years ago worsening over time. At todays visit pain 4/10 in low back without radiculopathy, intensifies to 7-8/10 at times. Pain is worst with twisting, pulling, pushing, bending, stairs, activity, standing, walking. Pain improved with heat, sitting, massage. Patient is a diabetic. Finds mild benefit to motrin, tizanidine, and chiropractor. Patient has been evaluated by Dr Denney who thinks patient is a candidate for right knee replacement when he is ready. Patient has utilized medical marijuana in the past for anxiety and pain but this caused falls. Patient recently underwent bilateral L4-5 L5-S1 facet medial branch block #1 with 100% improvement in low back pain and >80% improvement in functional ability immediately following and hours after the procedure. Patient would like to discuss medication options for his chronic moderate to severe low back pain. cc:: CC: Tara Lozada NP Review of Systems ROS Status of ROS 10 or more systems reviewed and unremarkable except as noted in history and below Musculoskeletal Reports: back pain, extremity pain and extremity swelling Meds Home Medications and Allergies Home Medications Medication Instructions Recorded Confirmed Type buspirone 15 mg tablet 15 mg PO BID 07/31/23 08/18/23 History carvedilol 6.25 mg tablet 6.25 mg PO BID 07/31/23 08/18/23 History hydrochlorothiazide 25 mg tablet 25 mg PO DAILY 07/31/23 08/18/23 History hydrocodone 5 mg-acetaminophen 325 1 tab PO Q6H PRN pain #12 tabs 07/31/23 08/18/23 Rx mg tablet tamsulosin 0.4 mg capsule (Flomax) 0.4 mg PO DAILY 07/31/23 08/18/23 History tizanidine 4 mg tablet 4 mg PO BID PRN muscle spasticity 07/31/23 08/18/23 History venlafaxine 37.5 mg 37.5 mg PO DAILY 07/31/23 08/18/23 History capsule,extended release 24 hr (Effexor XR) Allergies Allergy/AdvReac Type Severity Reaction Status Date / Time No Known Drug Allergies Allergy Verified 08/18/23 10:24 Exam Constitutional Documenting provider has reviewed patient's vital signs: yes Common normals: no apparent distress, oriented x3, healthy appearing, alert and well nourished General appearance: cooperative [facility] Common normals: normocephalic, hearing grossly normal bilaterally and moist oral mucous membranes Head and scalp: normocephalic Eye Common normals: PERRL Pupil: PERRL Neck & C-Spine Common normals: full ROM General: normal visual inspection Cervical spine: cervical ROM normal, pain with cervical ROM and paracervical muscle tenderness Chest Common normals: inspection of chest normal Respiratory Common normals: normal respiratory effort, no retractions and no use of accessory muscles Back & Pelvis Lumbar spine/lower back: ROM limited, pain with ROM and straight leg raise negative bilaterally Other: positive facet loading bilaterally axial low back pain without radiculopathy Extremity Other: right arm nonpitting edema, pulses intact bilaterally no discoloration of arm/hand bruising and purple discoloration to right hand, patient denies numbness tingling weakness Neuro Common normals: oriented x3, CN's II-XII intact bilaterally, moves all extremities, no focal motor deficits, no sensory deficits noted, deep tendon reflexes 2+ bilaterally and gait normal Sensorium/orientation: alert Motor exam: strength 5/5 throughout and no movement abnormalities noted Psych Common normals: mental status grossly normal, thought process normal, cooperative, affect normal, speech normal and activity/motor behavior normal Speech: normal speech Thought process: normal thought process Assessment and Plan Assessment and Plan (1) Lumbar spondylosis: Assessment and Plan: The patient has had over 3 months of moderate to severe low back pain with functional impairment and inadequate response to conservative care including NSAIDS (unless there are contraindication such as concurrent blood thinners), multiple oral or topical pain medications, and home exercise program/physical therapy.? Patient has completed >6 weeks of guided home exercise program and/or formal physical therapy program without relief of their symptoms.? I have reviewed the imaging of the lumbar spine and no red flags were identified.? The imaging reveals radiographic findings consistent with lumbar spondylosis The Oswestry Disability Index was completed, and the patient scored a 38%.? The patient noted the following:?? pain impacting sleep, social life, travel, cannot sit longer than 30 minutes, walk further than 100 yards We discussed the risks and benefits of the procedure with the patient, and we are not planning on using sedation as outlined in the guidelines from Medicare unless there is a documented reason that sedation would be strongly recommended.?? ?The procedure will be completed with fluoroscopic guidance.? (2) Chronic prescription opiate use: Assessment and Plan: Patient has failed to respond to tylenol, aleve, heat/ice. Recently was given hydrocodone-acetaminophen 5mg PRN moderate to severe pain after fall with fx to right elbow and found great benefit for that pain and chronic low back pain. at this time we will start hydrocodone-acetaminophen 5-325mg BID PRN moderate to severe 1 week trial, goals are to improve ambulation, improve functional ability, assist in ability to lift and carry objects, improve housework risks vs benefits discussed potential side effects reviewed narcan handout provided, we will order narcan ?? I reviewed with the patient the potential risks and side effects with the use of? opioid medications including but not limited to respiratory depression,? sedation, and even . I verified the patient has access to naloxone should? these effects occur. I advised the patient to avoid the use of any other? sedation substances including alcohol, THC, and benzodiazepines while? taking opioid medications due to the risk of compounding side effects and? detrimental outcomes. I reviewed the [employer], pain treatment agreement, urine? drug screen, and opioid start talking forms. The patient was advised to let? their family know they had Naloxone in case they would need to administer? the medication.? ?? A drug screen was completed within the last year, and no aberrancies were noted regarding their use of controlled substances. The patient understands they are subject to the terms and conditions of the pain contract that they have signed. ? ?? I have checked an OARRS report on this patient today and there are no aberrancies noted in the prescribing history.? (3) Closed fracture of right elbow: (4) Edema of right forearm: (5) Myofascial pain: (6) BP (high blood pressure): Assessment and Plan: Blood pressure is elevated today. No signs or symptoms of IA/CVA including chest pain, SOB, left sided acute neck, arm, or jaw pain (separate from chronic pain complaint), diaphoresis, facial drooping, new acute neuro changes in both upper and lower extremities (other than those mentioned in the note above). Recommend follow up with PCP for further evaluation and treatment.? Plan bilateral L4-5 L5-S1 facet medial branch block #2 working towards RFA UDS today hydrocodone-acetaminophen 5-325mg BID PRN moderate to severe pain 14 tabs refill and continue tizanidine 4mg BID PRN myofascial pain narcan discussed and prescribed continue HEP as tolerated f/u with PCP in regards to asymptomatic HTN, we will call his PCP and update them f/u 1 week after injection
== END 2023-09-03 12:33 | disposition home or self-care (01) ==
PROVIDERS: PCP Family Medicine; Visit Provider Nurse Practitioner
DX: M47.816 Spondylosis without myelopathy or radiculopathy, lumbar region (principal); R22.31 Localized swelling, mass and lump, right upper limb; M79.18 Myalgia, other site; I10 Essential (primary) hypertension; S42.401D Unspecified fracture of lower end of right humerus, subsequent encounter for fracture with routine healing
CPT/HCPCS: G0463

== ENCOUNTER 2023-09-08 08:59 | Day surgery (SDC) | payer MEDICARE, OTHER, SELFPAY ==
--- OUTSIDE RECORDS SUMMARY | 2023-09-08 09:03 | XMS_ITS | CCD ---
Author Name Unknown Address [address] [facility] [address] [place] [address] Organization [facility] Care Team Providers Care Bit Tapper Name Role Phone ZAYRA AQUINO Admitting Unavailable ZAYRA AQUINO Attending Unavailable MISC, DOCTOR Primary Care Unavailable ZAYRA AQUINO Consulting Unavailable MARY MONACO Admitting Unavailable MARY MONACO Attending Unavailable ZAYRA AQUINO Primary Care Unavailable MARY MONACO Consulting Unavailable Giorgio Hernandez Attending Provider Mary Monaco Primary Care Provider Jesus CLINICAL NURSING INSTRUCTORMary Unavailable MARY MONACO Attending Unavailable LORETO LE Attending Unavailable LORETO LE Attending Unavailable LORETO LE Referring Unavailable MARY MONACO Attending Unavailable Unavailable Unavailable Unavailable Medications Current Medications Medication Drug Class(es) Dates Sig (Normalized) Sig (Original) acetaminophen 325 mg / HYDROcodone bitartrate 5 mg oral tablet (3 sources) Opioid Agonist HYDROcodone-acet aminoph en ([place]) 5-325 MG tablet ALPRAZolam 0.25 mg oral [...] of the right elbow Ever Denney D.O. [facility] Radiology Study observation (narrative) [facility] XR Elbow - right 2 ViewsOrde red By: Shamar Denney on 09-01-2023 [facility] [employer] Work Phone: CREATININEon 04-26-2020 Creatinine [Mass/Vol] 0.87 mg/dL Normal 0.66-1.25 [facility] Comment on above: Performed By: #### C FRANSISCO #### [facility] [address] [place] [address] Courtney Claudio Creatinine [Mass/Vol] mg/dL Normal >=60 [facility] Comment on above: Performed By: #### C FRANSISCO #### [facility] [address] [place] [address] Courtney Claudio COVID-19 PCRon 02-26-2020 SARS-CoV-2, RONEL Not Detected Normal Not Detected [facility] Comment on above: Result Comment: This test was developed and its performance characteristics determined by [employer]. This test has not been FDA cleared [...] assay. Performed By: #### C VDPCR #### [facility] [address] [place] [address] Courtney Claudio Encounters Encounter Date Encounter Type Care Provider Facility Start: 09-01-2023 End: 09-02-2023 ambulatory LORETO LE Not Available Start: 09-01-2023 [employer] flowsheet Loreto simmons CLINICAL NURSING INSTRUCTOR Work Phone: [facility] Start: 09-01-2023 [employer] flowsheet Loreto simmons CLINICAL NURSING INSTRUCTOR Work Phone: [facility] Start: 09-01-2023 End: 09-01-2023 Office outpatient visit 15 minutes Loreto Le CLINICAL NURSING INSTRUCTOR Work Phone: [facility] Comment on above: Right elbow pain (Pr imary Dx); Contusion of right elbow, subsequent encounter; Sprain of right elbow, subsequent encounter Start: 08-04-2023 End: 08-04-2023 ambulatory LORETO LE Not Available Start: 07-16-2023 End: 07-16-2023 ambulatory MARY MONACO Not Available Start: 07-03-2023 End: 07-03-2023 ambulatory MARY MONACO Not Available Start: 09-13-2020 End: 09-13-2020 Discharged Recurring Giorgio Hernandez [facility] [address] Start: 05-02-2020 Encounter for preprocedural laboratory examination ZAYRA AQUINO [facility] Start: 04-26-2020 End: 04-27-2020 Patient encounter procedure MARY MONACO Facility:[facility] Start: 02-25-2020 End: 02-26-2020 Patient encounter procedure ZAYRA AQUINO Facility:[facility] Encounter for preprocedural laboratory examination ZAYRA AQUINO [facility] Procedures Date Procedure Procedure Detail Performing Clinician Start: 09-01-2023 Radex elbow 2 views Yudy Le CLINICAL NURSING INSTRUCTOR Work Phone: Start: 03-17-2015 Colonoscopy Loreto elise CLINICAL NURSING INSTRUCTOR Work Phone: Plan of Treatment Date Care [...] [facility] [address] [place] [id number] Loreto Le, BRADEN [address] [place] [address] [facility] Start: 07-04-2023 Medicare Annual Wellness (AWV) Medicare Annual Wellness (AWV) [facility] Start: 09-28-2021 Screening for malign ant neoplasm of colon FIT-DNA [facility] Start: 1950 Screening for malign ant neoplasm of colon [facility] Immunizations Immunization Date Immunization Notes Care Provider Fa cility 07-11-2022 Influenza, High-dose Seasonal, Quadrivalent, Preservative Free Loreto Le NP Work Phone: [facility] 07-11-2022 influenza virus vacc ine, unspecified formulation Loreto Le NP Work Phone: [facility] 07-17-2021 Influenza, High-dose Seasonal, Quadrivalent, Preservative Free Loreto Le NP Work Phone: [facility] 07-17-2021 Pfizer Purple Cap SARS-CoV-2 Vaccination Loreto Le CLINICAL NURSING INSTRUCTOR Work Phone: [facility] 04-20-2020 influenza, high dose seasonal, preservative-free Loreto Le CLINICAL NURSING INSTRUCTOR Work Phone: [facility] 07-30-2017 influenza, injectabl e, quadrivalent, contains preservative Loreto Le CLINICAL NURSING INSTRUCTOR Work Phone: [facility] 07-30-2017 pneumococcal polysaccharide vaccine, 23 valent Loreto Le CLINICAL NURSING INSTRUCTOR Work Phone: [facility] Payers Date Payer Category Payer Unknown [employer] MAHARAJA [facility] [id number] 2022-Present [address] [address] [id number] 2022 Unknown [id number] 2017 Medicare MEDICARE MEDICAR E PART B [id number] 2017-[place] [address] Medicare [id number] 1959 Medicare [id number] 1959 Private Health Insurance [id number] 1952 Unknown [id number] [id number] 1952 Unknown [id number] [id number] 1952 Unknown [id number] [id number] 1952 Unknown [id number] [id number] 1952 Unknown [id number] [id number] 1952 Unknown [id number] [id number] 1952 Unknown [id number] [id number] Self-pay Self Pay [id number] Unknown Self Pay [id number] Social History Date Type Detail Facility Tobacco smoking stat [facility] Unknown if ever smoked [facility] Start: 1950 Sex Assigned At Male F [facility] Start: 08-04-2023 Tobacco smoking stat [facility] Ex-smoker [facility] End: 07-21-2003 History of [...] in a long posterior splint and prescribed [place]. Presents in LAC. Removed today. Denies pain. [...] pital DATE CREATED AUTHOR AUTHOR'S TRENTON ATLEW 09/06/2023 [facility] d[facility] Specialists [facility] Care Teams (unrecognized sec tion and content) Bit Tapper Relationship Specialty Start Date End Date Mary Monaco CLINICAL NURSING INSTRUCTOR [address] [facility] [address] [place] [address] PCP - ACO Reach 12/12/22 Bit Tapper Relationship Specialty Start Date End Date Mary Monaco CLINICAL NURSING INSTRUCTOR [address] [facility] [address] [place] [address] PCP - ACO Reach 12/12/22 FOR RECORDS [...] BE BASED ON THE PRIMARY CLINICAL RECORDS. [facility] [employer] [facility]. provides no warranty or guarantee of the accuracy or completeness of information in this document.
[2023-09-08 09:17] VITALS: BP 168/85; PULSE 59; RESP 16; TEMP 36.3; O2SAT 98
[2023-09-08 09:47] VITALS: BP 132/84; PULSE 59; RESP 18; O2SAT 93
[2023-09-08 09:49] VITALS: BP 139/75; PULSE 58; RESP 18; O2SAT 95
[2023-09-08] MEDS: BUPIVACAINE HCL 0.25% PF 25 MG/10 ML VIAL 8 ML INJ (09:50)
[2023-09-08] MEDS: LIDOCAINE HCL 2% PF 100 MG/5 ML VIAL 1 ML INJ (09:50)
--- NOTE | 2023-09-08 09:50 | W.PM.PROCNOT ---
Date of procedure: 09/08/23 Pre-op diagnosis: Lumbar spondylosis Post-op diagnosis: same as pre-op Procedure: Procedure: Bilateral L4-5, L5-S1 medial branch block Medications: Bupivacaine 0.25% 6cc The patient was seen and examined in the preoperative holding area.? An informed consent was obtained and placed on the chart.? The patient was brought to the medical procedure unit and placed in the prone position.? A timeout was completed verifying correct patient, procedure site, positioning, plan, and special equipment.? Using aseptic technique, the needle was placed at left L4. Under direct fluoroscopic visualization a Quincke-tipped spinal needle was advanced to the junction of the superior articulating process with the transverse process at the designated medial branch segment.? Preceded by negative aspiration, the above-mentioned injectate was placed in 1 mL aliquots.? The procedure was repeated at left L5, S1.? The needle was removed and insertion site was covered. The same procedure, at the same levels, was completed on the right side. The patient was taken to the postprocedural recovery area and monitored for an appropriate length of time before found suitable for discharge in the company of a responsible adult. Anesthesia: Local Surgeon: Bogdan Calle Pathology: none sent Condition: stable Disposition: no change
== END 2023-09-08 09:55 | disposition home or self-care (01) ==
PROVIDERS: PCP Family Medicine; Visit Provider Anesthesiology
DX: M47.816 Spondylosis without myelopathy or radiculopathy, lumbar region (principal)
CPT/HCPCS: 64493; 64494; J0665

== ENCOUNTER 2023-09-17 08:39 | Outpatient (RCR) | payer MEDICARE, OTHER, SELFPAY | END 2023-10-07 11:32 | disposition home or self-care (01) | LOC: OT 08:39 | PROVIDERS: PCP Family Medicine; Visit Provider Nurse Practitioner Family | DX: M25.521 Pain in right elbow (principal); S50.01XD Contusion of right elbow, subsequent encounter; S53.491D Other sprain of right elbow, subsequent encounter | CPT/HCPCS: 97110; 97165; G0283 ==

== ENCOUNTER 2023-09-17 14:14 | Outpatient (OUT) | payer MEDICARE, OTHER, SELFPAY ==
--- NOTE | 2023-09-17 15:08 | P.CN_ITS ---
Consult Note: HPI Data of Consult Patient: new to practice Consult date: 07/31/23 Requesting Physician: Tara Lozada NP Primary Care Provider: ZAYRA AQUINO Consult Narrative Reason for consult: establish Narrative: Michael Vaughn a pleasant 73 year old male presents for evaluation and management of chronic low back pain. Onset many years ago worsening over time. At todays visit pain 4/10 in low back without radiculopathy, intensifies to 7-8/10 at times. Pain is worst with twisting, pulling, pushing, bending, stairs, activity, standing, walking. Pain improved with heat, sitting, massage. Patient is a diabetic. Finds mild benefit to motrin, tizanidine, and chiropractor. Patient has been evaluated by Dr Denney who thinks patient is a candidate for right knee replacement when he is ready. Patient has utilized medical marijuana in the past for anxiety and pain but this caused falls. Patient recently underwent bilateral L4-5 L5-S1 facet medial branch block #2 with 100% improvement in low back pain and >80% improvement in functional ability immediately following and hours after the procedure. Patient has found significant benefit from norco 5-325 mg BID PRN moderate to severe pain. cc:: CC: Tara Lozada NP Review of Systems ROS Status of ROS 10 or more systems reviewed and unremark able except as noted in history and below Musculoskeletal Reports: back pain Meds Home Medications and Allergies Home Medications Medication Instructions Recorded Confirmed Type buspirone 15 mg tablet 15 mg PO BID 07/31/23 09/08/23 History carvedilol 6.25 mg tablet 6.25 mg PO BID 07/31/23 09/08/23 History hydrochlorothiazide 25 mg tablet 25 mg PO DAILY 07/31/23 09/08/23 History hydrocodone 5 mg-acetaminophen 325 1 tab PO Q6H PRN pain #12 tabs 07/31/23 09/08/23 Rx mg tablet tamsulosin 0.4 mg capsule (Flomax) 0.4 mg PO DAILY 07/31/23 09/08/23 History tizanidine 4 mg tablet 4 mg PO BID PRN muscle spasticity 07/31/23 09/08/23 History venlafaxine 37.5 mg 37.5 mg PO DAILY 07/31/23 09/08/23 History capsule,extended release 24 hr (Effexor XR) hydrocodone 5 mg-acetaminophen 325 1 tab PO BID PRN pain #14 tabs 09/03/23 09/08/23 Rx mg tablet tizanidine 4 mg capsule 4 mg PO BID PRN muscle spasticity 09/03/23 09/08/23 Rx #60 caps hydrocodone 5 mg-acetaminophen 325 1 tab PO BID PRN pain #60 tabs 09/17/23 Rx mg tablet naloxone 4 mg/actuation nasal 4 mg intranasal Q3M PRN opioid 09/17/23 Rx spray (Narcan) overdose #1 ea Allergies Allergy/AdvReac Type Severity Reaction Status Date / Time No Known Drug Allergies Allergy Verified 09/08/23 09:25 Exam Constitutional Documenting provider has reviewed patient's vital signs: yes Common normals: no apparent distress, oriented x3, healthy appearing, alert and well nourished General appearance: cooperative HENMT Common normals: normocephalic, hearing grossly normal bilaterally and moist oral mucous membranes Head and scalp: normocephalic Eye Common normals: PERRL Pupil: PERRL Neck & C-Spine Common normals: full ROM General: normal visual inspection Cervical spine: cervical ROM normal, pain with cervical ROM and paracervical muscle tenderness Chest Common normals: inspection of chest normal Respiratory Common normals: normal respiratory effort, no retractions and no use of accessory muscles Back & Pelvis Lumbar spine/lower back: ROM limited, pain with ROM and straight leg raise negative bilaterally Other: positive facet loading bilaterally axial low back pain without radiculopathy Neuro Common normals: oriented x3, CN's II-XII intact bilaterally, moves all extremities, no focal motor deficits, no sensory deficits noted, deep tendon reflexes 2+ bilaterally and gait normal Sensorium/orientation: alert Motor exam: strength 5/5 throughout and no movement abnormalities noted Psych Common normals: mental status grossly normal, thought process normal, cooperative, affect normal, speech normal and activity/motor behavior normal Speech: normal speech Thought process: normal thought process Assessment and Plan Assessment and Plan (1) Lumbar spondylosis: Assessment and Plan: The patient has had over 3 months of moderate to severe low back pain with functional impairment and inadequate response to conservative care including NSAIDS (unless there are contraindication such as concurrent blood thinners), multiple oral or topical pain medications, and home exercise program/physical therapy.? Patient has completed >6 weeks of guided home exercise program and/or formal physical therapy program without relief of their symptoms.? I have reviewed the imaging of the lumbar spine and no red flags were identified.? The imaging reveals radiographic findings consistent with lumbar spondylosis The Oswestry Disability Index was completed, and the patient scored a 38%.? The patient noted the following:?? pain impacting sleep, social life, travel, cannot sit longer than 30 minutes, walk further than 100 yards We discussed the risks and benefits of the procedure with the patient, and we are not planning on using sedation as outlined in the guidelines from Medicare unless there is a documented reason that sedation would be strongly recommended.?? ?The procedure will be completed with fluoroscopic guidance.? (2) Chronic prescription opiate use: Assessment and Plan: Patient has failed to respond to tylenol, aleve, heat/ice. Recently was given hydrocodone-acetaminophen 5mg PRN moderate to severe pain after fall with fx to right elbow and found great benefit for that pain and chronic low back pain. at this time we will start hydrocodone-acetaminophen 5-325mg BID PRN moderate to severe 1 week trial, goals are to improve ambulation, improve functional ability, assist in ability to lift and carry objects, improve housework risks vs benefits discussed potential side effects reviewed narcan handout provided, we will order narcan ?? I reviewed with the patient the potential risks and side effects with the use of? opioid medications including but not limited to respiratory depression,? sedation, and even . I verified the patient has access to naloxone should? these effects occur. I advised the patient to avoid the use of any other? sedation substances including alcohol, THC, and benzodiazepines while? taking opioid medications due to the risk of compounding side effects and? detrimental outcomes. I reviewed the DIRECTOR OF ENROLLMENT, pain treatment agreement, urine? drug screen, and opioid start talking forms. The patient was advised to let? their family know they had Naloxone in case they would need to administer? the medication.? ?? A drug screen was completed within the last year, and no aberrancies were noted regarding their use of controlled substances. The patient understands they are subject to the terms and conditions of the pain contract that they have signed. ? ?? I have checked an OARRS report on this patient today and there are no aberrancies noted in the prescribing history.? (3) Closed fracture of right elbow: (4) Edema of right forearm: (5) Myofascial pain: (6) BP (high blood pressure): Assessment and Plan: Blood pressure is elevated today. No signs or symptoms of AL/CVA including chest pain, SOB, left sided acute neck, arm, or jaw pain (separate from chronic pain complaint), diaphoresis, facial drooping, new acute neuro changes in both upper and lower extremities (other than those mentioned in the note above). Recommend follow up with PCP for further evaluation and treatment.? Plan bilateral L4-5 L5-S1 facet medial branchRFA continue hydrocodone-acetaminophen 5-325mg BID PRN moderate to severe pain continue tizanidine 4mg BID PRN myofascial pain narcan discussed and prescribed continue HEP as tolerated home bp cuff ordered per pt request, patient is following with PCP with htn. asymptomatic f/u 1 month after RFA
== END 2023-09-17 14:15 | disposition home or self-care (01) ==
PROVIDERS: PCP Family Medicine; Visit Provider Nurse Practitioner
DX: M47.816 Spondylosis without myelopathy or radiculopathy, lumbar region (principal); Z79.891 Long term (current) use of opiate analgesic; S42.401A Unspecified fracture of lower end of right humerus, initial encounter for closed fracture; M79.89 Other specified soft tissue disorders; M79.18 Myalgia, other site; I10 Essential (primary) hypertension
CPT/HCPCS: G0463

== ENCOUNTER 2023-09-29 08:29 | Day surgery (SDC) | payer MEDICARE, OTHER, SELFPAY ==
--- OUTSIDE RECORDS SUMMARY | 2023-09-29 08:32 | XMS_ITS | CCD ---
Author Name Unknown Address [address] [place] [address] Organization [facility] Care Team Providers Care Human Resources Professional Name Role Phone ZAYRA AQUINO Admitting Unavailable ZAYRA AQUINO Attending Unavailable MISC, DOCTOR Primary Care Unavailable ZAYRA AQUINO Consulting Unavailable MARY LEE Admitting Unavailable MARY LEE Attending Unavailable BRANDI AQUINOEN Primary Care Unavailable MARY LEE Consulting Unavailable Giorgio Hernandez Attending Provider [phone] Mary Lee Primary Care Provider Jesus [employer], Mary Temple Unavailable [phone] MARY LEE Attending Unavailable APLINGLORETO Attending Unavailable APLING, LORETO Strickland Attending Unavailable APLLORETO CONNORS Referring Unavailable MARY LEE Attending Unavailable MARY LEE Attending Unavailable APLING, LORETO Strickland Attending Unavailable Luc CATHERINE, Bogdan Snyder Attending Unavailable Luc CATHERINE, Bogdan Snyder Attending Unavailable Unavailable Unavailable Unavailable Medications Current Medications Medication Drug Class(es) Dates Sig (Normalized) Sig (Original) acetaminophen 325 mg / HYDROcodone bitartrate 5 mg oral tablet (3 sources) Opioid Agonist HYDROcodone-acet aminoph en (Lyburn) 5-325 MG tablet ALPRAZolam 0.25 mg oral [...] of the right elbow Ever Denney D.O. [facility] Ask The Doctor Radiology Study observation (narrative) [facility] Ask The Doctor XR Elbow - right 2 ViewsOrde red By: Shamar Denney on 09-01-2023 [facility] Work Phone: CREATININEon 04-26-2020 Creatinine [Mass/Vol] 0.87 mg/dL Normal 0.66-1.25 [facility] Comment on above: Performed By: #### C FRANSISCO #### [facility] [address], [place] [address] Courtney Claudio Creatinine [Mass/Vol] mg/dL Normal >=60 [facility] Comment on above: Performed By: #### C FRANSISCO #### [facility] [address], [place] [address] Courtney Claudio COVID-19 PCRon 02-26-2020 SARS-CoV-2, RONEL Not Detected Normal Not Detected [facility] Comment on above: Result Comment: This test was developed and its performance characteristics determined by [employer]. This test has not been FDA cleared [...] assay. Performed By: #### C VDPCR #### [facility] [address] [place] [address] Courtney Claudio Encounters Encounter Date Encounter Type Care Provider Facility Start: 09-15-2023 End: 09-15-2023 ambulatory LORETO OJEDA Not Available Start: 09-10-2023 End: 09-10-2023 ambulatory MARY LEE Not Available Start: 09-08-2023 End: 09-09-2023 [facility] Start: 09-01-2023 End: 09-02-2023 ambulatory LORETO OJEDA Not Available Start: 09-01-2023 Bamboo flowsheet Loreto simmons [employer] Work Phone: [facility] Start: 09-01-2023 Bamboo flowsheet Loreto simmons [employer] Work Phone: [facility] Start: 09-01-2023 End: 09-01-2023 Office outpatient visit 15 minutes Loreto Ojeda [employer] Work Phone: [facility] Comment on above: Right elbow pain (Pr imary Dx); Contusion of right elbow, subsequent encounter; Sprain of right elbow, subsequent encounter Start: 08-18-2023 End: 08-19-2023 ambulatory [facility] Start: 08-04-2023 End: 08-04-2023 ambulatory LORETO OJEDA Not Available Start: 07-16-2023 End: 07-16-2023 ambulatory MARY Maverick JESUS Not Available Start: 07-03-2023 End: 07-03-2023 ambulatory MARY Temple JESUS Not Available Start: 09-13-2020 End: 09-13-2020 [facility] [address] Start: 05-02-2020 [facility] Start: 04-26-2020 End: 04-27-2020 Patient encounter procedure MARY LEE Facility:[facility] Start: 02-25-2020 End: 02-26-2020 Patient encounter procedure RUGEN KENIA Facility:[facility] Encounter for preprocedural laboratory examination [facility] Procedures Date Procedure Procedure Detail Performing Clinician Start: 09-01-2023 Radex elbow 2 views Yudy Ojeda [employer] Work Phone: Start: 03-17-2015 Colonoscopy Loreto elise [employer] Work Phone: Plan of Treatment Date Care [...] [facility] [address] [place] [address] Loreto Ojeda, BRADEN [address] [place] [address] [facility] Start: 07-04-2023 Medicare Annual Wellness (AWV) Medicare Annual Wellness (AWV) [facility] Start: 09-28-2021 Screening for malign ant neoplasm of colon FIT-DNA [facility] Start: 1950 Screening for malign ant neoplasm of colon [facility] Immunizations Immunization Date Immunization Notes Care Provider Gwen maharaj 07-11-2022 Influenza, High-dose Seasonal, Quadrivalent, Preservative Free Loreto Apling [employer] Work Phone: [facility] 07-11-2022 influenza virus vacc ine, unspecified formulation Loreto Apling [employer] Work Phone: [facility] 07-17-2021 Influenza, High-dose Seasonal, Quadrivalent, Preservative Free Loreto Apling [employer] Work Phone: [facility] 07-17-2021 Pfizer Purple Cap SARS-CoV-2 Vaccination Loreto Apling [employer] Work Phone: [facility] 04-20-2020 influenza, high dose seasonal, preservative-free Loreto Apling [employer] Work Phone: [facility] 07-30-2017 influenza, injectabl e, quadrivalent, contains preservative Loreto Apling [employer] Work Phone: [facility] 07-30-2017 pneumococcal polysaccharide vaccine, 23 valent Loreto Apling [employer] Work Phone: [facility] Payers Date Payer Category Payer Unknown [id number] 2022 Unknown [id number] 2017 Medicare [id number] 1959 Medicare [id number] 1959 Private Health Insurance [id number] 1952 Unknown [id number] 2.16.84 [id number] 1952 Unknown [id number] 2.16.84 [id number] 1950 Unknown [id number] 2.16.84 [id number] 1952 Unknown [id number] 2.16.84 [id number] 1952 Unknown [id number] 2.16.84 [id number] 1952 Unknown [id number] 2.16.84 [id number] 1952 Unknown [id number] 2.16.84 [id number] 1952 Unknown [id number] 2.16.840 .[id number] 1952 Unknown [id number] 2.16.840 .[id number] 1952 Unknown [id number] 2.16. [id number] 1950 Unknown [id number] 2.16. [id number] Self-pay Self Pay [id number] Unknown Self Pay [id number] Social History Date Type Detail Facility Tobacco smoking stat [facility] Unknown if ever smoked [facility] Start: 1950 Sex Assigned At Male F [facility] Start: 08-04-2023 Tobacco smoking stat [facility] Ex-smoker [facility] End: 07-21-2003 History of tobacco use Current smoker [facility] End: 07-21-2003 History of tobacco use Cigarette Smoker [facility] Start: 08-04-2023 Tobacco use and exposure Smokeless tobacco non-user [facility] Start: 08-04-2023 End: 09-01-2023 Alcohol intake Current drinker of alcohol (finding) [facility] Start: 08-04-2023 End: 09-01-2023 History of Social function [facility] Start: 08-04-2023 End: 09-01-2023 Tobacco use panel [facility] Start: 07-03-2023 Alcohol Comment caffeine yes t ype: coffee [facility] Start: 1950 Sex Assigned At Not on file [facility] Goals Date Patient Goal Desired Activity /State History of Present illness Narrative 09-01-2023 Loreto OjedaBRADEN - 09/01/2023 1:15 PM EST Note Date & Type Note Facility 09-01-2023 History of Presen t illness Narrative Subjective Patient ID: Michael Vaughn is a 73 y.o. male. RT Elbow *cast off and xrays Pt is RT handed Pt fell 5 weeks 2 days ago (DOI 07/26/23) and landed on Rt elbow. Pt was placed in a long posterior splint and prescribed Lyburn. Presents in LAC. Removed today. Denies pain. [...] elbow, f/U in 2 weeks, continue with rbuce therapy, documented in this encounter [facility] Evaluation note Note Date & Type Note Facility Evaluation note Diagnosis Right elbow pain- Primary Pain in joint, upper arm Contusion of right elbow, subsequent encounter Sprain of right elbow, subsequent encounter documented in this encounter [facility] Summary Purpose Family History No Family History Records FoundNo Family History Records FoundNo Family History Records Found Advance Directives No Advanced Directives Records Found Advance Directive Response Recorded Date/ Time Advance Directives No May 4:12pm Chief Complaint and Reason for Visit Chief Complaint R leg Lymphedema Assessments No Assessments Information Available Additional Source Comments (unrecognized sect ion and content) No Status Records FoundNo Status Records FoundNo Status Records Found INFORMATION SOURCE (unrecogn ized section and content) DATE CREATED AUTHOR 05/03/2020 [facility] DATE CREATED AUTHOR AUTHOR'S ORGANIZ ATION 09/17/2023 [facility] EPIC DATE CREATED AUTHOR AUTHOR'S ORGANIZ ATION 09/24/2023 [facility] Care Teams (unrecognized sec tion and content) Human Resources Professional Relationship Specialty Start Date End Date Mary Lee NP [address] [address] PCP - ACO Reach 12/12/22 Human Resources Professional Relationship Specialty Start Date End Date Mary Lee NP [address] [address] PCP - ACO Reach 12/12/22 FOR RECORDS [...] PRIMARY CLINICAL RECORDS. [facility]. provides no warranty or guarantee of the accuracy or completeness of information in this document.
[2023-09-29 08:47] VITALS: BP 144/76; PULSE 92; RESP 16; TEMP 36.3; O2SAT 97
[2023-09-29 09:49] VITALS: BP 131/63; PULSE 57; RESP 16; O2SAT 96
[2023-09-29 09:56] VITALS: BP 141/74; PULSE 58; RESP 16; O2SAT 96
[2023-09-29] MEDS: BUPIVACAINE HCL 0.25% PF 25 MG/10 ML VIAL 4 ML INJ (10:01)
[2023-09-29] MEDS: LIDOCAINE HCL 2% 400 MG/20 ML MDV 16 ML INJ (10:02)
[2023-09-29] MEDS: TRIAMCINOLONE ACETONIDE 40 MG/ML VIAL 80 MG INJ (10:02)
--- NOTE | 2023-09-29 10:02 | P.ON_ITS ---
Date of procedure: 09/29/23 Pre-op diagnosis: Lumbar spondylosis Post-op diagnosis: same as pre-op Procedure: Procedure: Bilateral L4-5, L5-S1 radiofrequency ablation Medications: Bupivacaine 0.25% 6cc, lidocaine 2% 5cc, kenalog 80mg The patient was seen and examined in the preoperative holding area.? The site was marked.? Written informed consent was obtained and placed on the chart.? The patient was brought to the medical procedure unit and placed in the prone position.? A timeout was completed verifying correct patient, procedure, positioning, and special requirements.? The skin overlying the target points, the designated medial branch, were prepped and draped in the usual sterile fashion.? The target point was achieved with a 20-gauge 15 cm with a 10 mm curved active tip radiofrequency cannula under direct fluoroscopic visualization.? The needle was inserted at level L4 on the right side. Needle tip position was confirmed with lateral fluoroscopic position.? Motor stimulation was carried out at 2 Hz up to 5 volts with the absence of extremity activity.? This was repeated at level L5, S1 on right side.?? Sensory stimulation was carried out.? Concordant pain was realized at the above- mentioned sites.? Then radiofrequency lesioning was carried out times 90 seconds at 80 degrees times 2 lesions at each level.? The radiofrequency probe was removed prior to cannula removal.? The above-mentioned injectate was placed in 1 mL increments.? The needle was removed. The same procedure, with the same steps, was then completed on the left side at the same levels. Insertion sites were covered.? The patient was taken to the postoperative recovery area and monitored for an appropriate length of time before being found suitable for discharge in the company of a responsible adult. Surgeon: Bogdan Calle Pathology: none sent Condition: stable Disposition: no change
== END 2023-09-29 10:07 | disposition home or self-care (01) ==
LOC: SURGOUT 08:30
PROVIDERS: PCP Family Medicine; Visit Provider Anesthesiology
DX: M47.816 Spondylosis without myelopathy or radiculopathy, lumbar region (principal); Z79.899 Other long term (current) drug therapy
CPT/HCPCS: 64635; 64636; 82948

== ENCOUNTER 2023-10-29 08:53 | Outpatient (OUT) | payer MEDICARE, OTHER, SELFPAY ==
--- NOTE | 2023-10-29 09:11 | PM.CN ---
Consult Note: HPI Data of Consult Patient: known to practice within the last 3 years Consult date: 07/31/23 Requesting Physician: Tara Lozada NP Primary Care Provider: ZAYRA AQUINO Consult Narrative Reason for consult: f/u Narrative: Michael Vaughn a pleasant 73 year old male presents for evaluation and management of chronic low back pain. Onset many years ago worsening over time. Prior imaging consistent with lumbar spondylosis. Patient reporting pain 07/30, does not increase past that. Patient underwent bilateral L4-5 L5-s1 Facet medial branch thermal RFA with 95% improvement ongoing per patient. Patient has not utilized norco 5-325 or xanaflex since RFA. Patient reports tightness aching today, was overactive yesterday. cc:: CC: Tara Lozada NP Review of Systems ROS Status of ROS 10 or more systems reviewed and unremarkable except as noted in history and below Musculoskeletal Reports: back pain [facility] Medical History (Updated 09/18/23 @ 09:21 by Cesia Ruvalcaba) Anxiety ?F41.9 - Anxiety disorder, unspecified (ICD-10) Smoker ?F17.200 - Nicotine dependence, unspecified, uncomplicated (ICD-10) Lymphadenitis ?I88.9 - Nonspecific lymphadenitis, unspecified (ICD-10) Sleep apnea ?G47.30 - Sleep apnea, unspecified (ICD-10) Depression ?F32.A - Depression, unspecified (ICD-10) CVA (cerebral vascular accident) ?I63.9 - Cerebral infarction, unspecified (ICD-10) Ulcer Hypertension ?I10 - Essential (primary) hypertension (ICD-10) Surgical History H/O knee surgery ?Z98.890 - Other specified postprocedural states (ICD-10) S/P hernia repair ?Z98.890 - Other specified postprocedural states (ICD-10) ?Z87.19 - Personal history of other diseases of the digestive system (ICD-10) H/O carpal tunnel repair ?Z98.890 - Other specified postprocedural states (ICD-10) Meds Home Medications and Allergies Home Medications ?Medication ?Instructions ?Recorded ?Confirmed ?Type buspirone 15 mg tablet 15 mg PO BID 07/31/23 09/29/23 History carvedilol 6.25 mg tablet 6.25 mg PO BID 07/31/23 09/29/23 History hydrochlorothiazide 25 mg tablet 25 mg PO DAILY 07/31/23 09/29/23 History hydrocodone 5 mg-acetaminophen 325 1 tab PO Q6H PRN pain #12 tabs 07/31/23 09/29/23 Rx mg tablet tizanidine 4 mg tablet 4 mg PO BID PRN muscle spasticity 07/31/23 09/29/23 History venlafaxine 37.5 mg 37.5 mg PO DAILY 07/31/23 09/29/23 History capsule,extended release 24 hr (Effexor XR) tizanidine 4 mg capsule 4 mg PO BID PRN muscle spasticity 09/03/23 09/29/23 Rx #60 caps naloxone 4 mg/actuation nasal 4 mg intranasal Q3M PRN opioid 09/17/23 09/29/23 Rx spray (Narcan) overdose #1 ea Allergies Allergy/AdvReac Type Severity Reaction Status Date / Time No Known Drug Allergies Allergy Verified 09/29/23 08:53 Exam Constitutional Documenting provider has reviewed patient's vital signs: yes (asymptomatic HTN ) Common normals: no apparent distress, oriented x3, healthy appearing, alert and well nourished General appearance: cooperative HENMT Common normals: normocephalic, hearing grossly normal bilaterally and moist oral mucous membranes Head and scalp: normocephalic Eye Common normals: PERRL Pupil: PERRL Neck & C-Spine Common normals: full ROM General: normal visual inspection Cervical spine: cervical ROM normal, pain with cervical ROM and paracervical muscle tenderness Chest Common normals: inspection of chest normal Respiratory Common normals: normal respiratory effort, no retractions and no use of accessory muscles Back & Pelvis Lumbar spine/lower back: normal to inspection, lumbar ROM normal, paraspinal muscle tenderness and straight leg raise negative bilaterally Other: negative facet loading Extremity Common normals: normal to inspection and full ROM Neuro Common normals: oriented x3, CN's II-XII intact bilaterally, moves all extremities, no focal motor deficits, no sensory deficits noted, deep tendon reflexes 2+ bilaterally and gait normal Sensorium/orientation: alert Motor exam: strength 5/5 throughout and no movement abnormalities noted Psych Common normals: mental status grossly normal, thought process normal, cooperative, affect normal, speech normal and activity/motor behavior normal Speech: normal speech Thought process: normal thought process Assessment and Plan Assessment and Plan (1) Lumbar spondylosis: (2) Myofascial pain: Plan continue xanaflex 4mg BID PRN stop norco 5-325 mg continue HEP as tolerated continue f/u with PCP for asymptomatic HTN f/u 6 months, sooner if needed
== END 2023-10-29 08:54 | disposition home or self-care (01) ==
LOC: PM 08:54
PROVIDERS: PCP Family Medicine; Visit Provider Nurse Practitioner
DX: M47.816 Spondylosis without myelopathy or radiculopathy, lumbar region (principal); M79.18 Myalgia, other site
CPT/HCPCS: G0463

== ENCOUNTER 2024-05-11 12:18 | Outpatient (OUT) | payer MEDICARE, OTHER, SELFPAY ==
--- NOTE | 2024-05-11 | CONS_ITS ---
PROCEDURE DATE: 05/11/2024 PROCEDURE: Trigger point injection left splenius capitis. PREOPERATIVE DIAGNOSIS: Myalgia left splenius capitis, spasm left splenius capitis.. POSTOPERATIVE DIAGNOSIS: Myalgia left splenius capitis, spasm left splenius capitis. EXAM: On examination, patient had no clinical radiculopathy or myelopathy involving his upper extremities. However, he did have severe pain with cervical facet loading maneuvers on the left side at C4-5, C5-6, with pain increasing in his neck, as well as in his left proximal shoulder area. SOLUTION USED FOR INJECTION: 2 mL of 2% lidocaine, 2 mL of 0.25% Marcaine, 10 mg of Kenalog total of 5 mL and 2.5 mL was used for injection at the site. IMMEDIATE COMPLICATIONS: None. PROCEDURE: After informed consent was obtained from the patient, placed in the sitting position. Skin overlying the area was prepped with alcohol. A 25 gauge, 1 ?? needle was inserted into the substance of the left splenius capitis muscle at approximately the C4 level on the left side. Needle tip advanced until there was a mild twitch response, at which time we injected 2.5 mL of solution. No indication of intravascular or intraneural needle tip placement or injection. Post procedure, he reports a marked reduction in pain symptoms. Will schedule patient for a diagnostic left sided C4-5, C5-6 medial branch block under fluoroscopic guidance. ELIZABETH
--- OUTSIDE RECORDS SUMMARY | 2024-05-11 12:21 | XMS_ITS | CCD ---
Author Organization [facility] Care Team Providers Care Sports Photographer Name Role Phone KENIA, RUGEN Admitting Unavailable KENIA, RUGEN Attending Unavailable MISC, DOCTOR Primary Care Unavailable KENIA, RUGEN Consulting Unavailable RENZO LEERI Admitting Unavailable MARY LEE Attending Unavailable KENIA, RUGEN Primary Care Unavailable MARY LEE Consulting Unavailable Giorgio Hernandez Attending Provider Mary Lee Primary Care Provider Jesus TRADEMARK AFFIXER, Mary Temple Unavailable Luc CATHERINE, Bogdan Snyder Attending Unavailable Luc CATHERINE, Bogdan Snyder Attending Unavailable Luc CATHERINE, Bogdan Snyder Attending Unavailable EDMUNDO DENNEY Referring Unavailable MARY LEE Primary Care Unavailable EDMUNDO DENNEY Attending Unavailable EDMUNDO DENNEY Referring Unavailable MARY LEE Primary Care Unavailable EDMUNDO DENNEY Referring Unavailable MARY LEE Primary Care Unavailable EDMUNDO DENNEY Referring Unavailable MARY LEE Primary Care Unavailable EDMUNDO DENNEY Admitting Unavailable EDMUNDO DENNEY Attending Unavailable RENZO LEERI Maverick Primary Care Unavailable TERESE RODRIGUEZ Attending Unavailable JESUSRENZORI M Primary Care Unavailable MARY LEE M Attending Unavailable APLINGLORETO Attending Unavailable APLINGLORETO Attending Unavailable APLINGLORETO Referring Unavailable MARY LEE M Attending Unavailable APLINGLORETO Attending Unavailable APLINGLORETO Attending Unavailable MARY LEE Attending Unavailable EDMUNDO DENNEY Attending Unavailable EDMUNDO DENNEY Referring Unavailable LEWIS SOLO Attending Unavailable EDMUNDO DENNEY Referring Unavailable EDMUNDO DENNEY Attending Unavailable MARY LEE Attending Unavailable EDMUNDO DENNEY Attending Unavailable CHACE, LUIS EDUARDO Mckoy Attending Unavailable [place], EDMUNDO Lackey Referring Unavailable CEDRICLORETO JIANGH Attending Unavailable [place], EDMUNDO Lackey Referring Unavailable BUCK CEE Attending Unavailable [place], EDMUNDO Lackey Referring Unavailable ERNESTO TAI Attending Unavailable [place], EDMUNDO Lackey Referring Unavailable ERNESTO TAI Attending Unavailable [place], EDMUNDO Lackey Referring Unavailable BUCK CEE Attending Unavailable [place], EDMUNDO Lackey Referring Unavailable ERNESTO TAI Attending Unavailable [place], EDMUNDO Lackey Referring Unavailable BUCK CEE Attending Unavailable [place], EDMUNDO Lackey Referring Unavailable ERNESTO TAI Attending Unavailable [place], EDMUNDO Lackey Referring Unavailable LUIS EDUARDO MAS Attending Unavailable [place], EDMUNDO Lackey Referring Unavailable [place], EDMUNDO Lackey Attending Unavailable [place], EDMUNDO Lackey Referring Unavailable MARCOS SCOTT Attending Unavailable DIONISIO, MARCOS Lackey Attending Unavailable DIONISIO, MARCOS Lackey Attending Unavailable MARY LEE Attending Unavailable ОЛЕГ, EDMUNDO Lackey Attending Unavailable Avila Aquino MD Primary Care Provider Mary Lee NP Unavailable Unavailable Unavailable Unavailable Medications Current Medications Medication Drug Class(es) Dates Sig (Normalized) Sig (Original) acetaminophen 325 mg / HYDROcodone bitartrate 5 mg oral tablet (9 sources) Opioid Agonist HYDROcodone-acet a minophen ([place]) 5-325 MG tablet Active ALPRAZolam 0.25 mg oral tablet (9 sources) Benzodiazepine Start: 09-24-2023 take 1 tablet by mouth three times daily as needed for anxiety ALPRAZolam (Xanax) 0.25 MG tablet Indications: Anxiety TAKE ONE TABLET BY MOUTH THREE TIMES A DAY NEEDED FOR ANXIETY 30 tablet 2 09/24/2023 Active Start: 07-10-2023 take 1 tablet by jorge a th three times daily as needed for anxiety ALPRAZolam (Xanax) 0.25 MG tablet Indications: Anxiety Take 1 tablet (0.25 mg) by mouth 3 (three) times a day as needed for anxiety 30 tablet 0 07/10/2023 Active Blood Pressure kit (6 sources) Start: 10-22-2023 Blood Pressure kit Indications: Primary hypertension (CMS/HCC) 1 Units in the morning and 1 Units in the evening and 1 Units before bedtime. 1 kit 10/22/2023 Active busPIRone hydrochloride 5 mg oral tablet (9 sources) Start: 12-01-2023 take 2 tablets by mouth once daily in the morning, then take 1 tablet by mouth once, then take 1 tablet by mouth once daily in the evening busPIRone (Buspar) 5 MG tablet Indications: Adjustment disorder with depressed mood (CMS/HCC) TAKE TWO TABLETS BY MOUTH EVERY MORNING, TAKE ONE TABLET BY MOUTH EVERY AFTERNOON, AND TAKE ONE TABLET BY MOUTH EVERY EVENING 450 tablet 3 12/01/2023 Active Start: 04-01-2023 End: 09-01-2023 take 1 tablet by mouth four times daily as needed for anxiety busPIRone (Buspar) 5 MG tablet Indications: Adjustment disorder with anxiety (CMS/HCC) Take 1 tablet (5 mg) by mouth 4 (four) times a day as needed (anxiety). 120 tablet 3 04/01/2023 09/01/2023 Discontinued (Med list cleanup) carvedilol 12.5 mg oral tablet (9 sources) alpha-Adrenergic Ivelisse, beta-Adrenergic Ivelisse Start: 03-29-2024 take 1 tablet by mouth twice daily carvedilol (Coreg) 12.5 MG tablet Indications: Hypertriglyceridemia (CMS/HCC) TAKE 1 TABLET BY MOUTH TWICE A DAY 200 tablet 3 03/29/2024 Active Start: 02-18-2023 take 1 tablet by jorge a twice daily carvedilol (Coreg) 12.5 MG tablet Indications: Hypertriglyceridemia (CMS/HCC) TAKE ONE TABLET BY MOUTH TWICE A DAY 200 tablet 3 02/18/2023 Active hydroCHLOROthiazide 50 mg oral tablet (9 sources) Thiazide Diuretic Start: 01-13-2024 End: 01-12-2025 take 1 tablet by mouth once daily hydroCHLOROthiazide (HYDRODiuril) 50 MG tablet Indications: Primary hypertension (CMS/HCC) Take 1 tablet (50 mg) by mouth Daily 90 tablet 3 01/13/2024 01/12/2025 Active Start: 07-28-2023 take 1 capsule by mo [facility] once daily in the morning hydroCHLOROthiazide (Microzide) 12.5 MG capsule Indications: Hypertension, unspecified type (CMS/HCC) TAKE ONE CAPSULE BY MOUTH EVERY MORNING 90 capsule 0 07/28/2023 Active tamsulosin hydrochloride 0.4 mg oral capsule (9 sources) alpha-Adrenergic Ivelisse Start: 10-14-2023 take 1 capsule by mouth once daily tamsulosin (Flomax) 0.4 MG 24 hr capsule Indications: Benign prostatic hyperplasia, unspecified whether lower urinary tract symptoms present TAKE 1 CAPSULE BY MOUTH DAILY 90 capsule 1 10/14/2023 Active Start: 04-14-2023 take 1 capsule by mo ut once daily tamsulosin (Flomax) 0.4 MG 24 hr capsule Indications: Benign prostatic hyperplasia, unspecified whether lower urinary tract symptoms present TAKE ONE CAPSULE BY MOUTH DAILY 90 capsule 1 04/14/2023 Active tiZANidine 4 mg oral tablet (9 sources) Central alpha-2 Adrenergic Agonist Start: 01-13-2024 take 1 tablet by mouth every six hours for muscle spasms tiZANidine (Zanaflex) 4 MG tablet Indications: Muscle spasm of back Take 1 tablet (4 mg) by mouth every 6 (six) hours if needed for muscle spasms 30 tablet 2 01/13/2024 Active Start: 07-22-2023 take 1 tablet by jorge a every six hours as needed for muscle spasms tiZANidine (Zanaflex) 4 MG tablet Indications: Muscle spasm of back TAKE ONE TABLET BY MOUTH EVERY 6 HOURS NEEDED FOR MUSCLE SPASMS 30 tablet 0 07/22/2023 Active venlafaxine 75 mg oral tablet (9 sources) Serotonin and Norepinephrine Reuptake Inhibitor Start: 03-01-2024 take 1 tablet by mouth three times daily at mealtime venlafaxine (Effexor) 75 MG tablet Indications: Adjustment disorder with anxiety (CMS/HCC) TAKE 1 TABLET BY MOUTH 3 TIMES A DAY WITH FOOD 300 tablet 03/01/2024 Active Start: 08-18-2023 take 1 tablet by jorge a th three times daily at mealtime venlafaxine (Effexor) 75 MG tablet Indications: Adjustment disorder with anxiety (CMS/HCC) TAKE ONE TABLET BY MOUTH THREE TIMES A DAY WITH FOOD 300 tablet 0 08/18/2023 Active Problems Active Problems Problem Classification Problem Date Documented Date Episodic/Chronic Acute and chronic tonsillitis (9 sources) Hypertrophy of tonsils AND adenoids; Translations: [Hypertrophy of tonsils with hypertrophy of adenoids] Onset: 02-18-2023 02-18-2023 Chronic Adjustment disorders (18 sources) Adjustment disorder with anxious mood; Translations: [Adjustment disorder with anxiety] Onset: 02-18-2023 02-18-2023 Chronic Alcohol-related disorders (18 sources) Alcohol abuse; Translations: [Alcohol abuse, uncomplicated] Onset: 02-18-2023 02-18-2023 Chronic Disorders of lipid metabolism (9 sources) Hypertriglyceridemia; Translations: [Pure hyperglyceridemia] Onset: 02-18-2023 02-18-2023 Chronic Essential hypertension (10 sources) Hypertensive disorder; Translations: [Essential (primary) hypertension] Onset: 02-18-2023 02-18-2023 Chronic Hyperplasia of prostate (9 sources) Benign prostatic hyperplasia; Translations: [Benign prostatic hyperplasia without lower urinary tract symptoms] Onset: 02-18-2023 02-18-2023 Chronic Immunizations and screening for infectious disease (4 sources) Encounter for screening for other viral diseases; Translations: [ENC SCREENING FOR OTH VIRAL DZ] Onset: 02-25-2020 Episodic Osteoarthritis (12 sources) Osteoarthritis of right knee joint; Translations: [Unilateral primary osteoarthritis, right knee] Onset: 02-18-2023 02-18-2023 Chronic Other connective tissue disease (1 source) Presence of right artificial knee joint; Translations: [Presence of right artificial knee joint] Onset: 02-04-2024 Chronic Other connective tissue disease (2 sources) History of total knee arthroplasty; Translations: [Presence of right artificial knee joint] 04-26-2024 Chronic Other connective tissue disease (2 sources) Pain in right foot; Translations: [Pain in right foot] 04-19-2024 Episodic Other nervous system disorders (9 sources) Carpal tunnel syndrome; Translations: [Carpal tunnel syndrome, unspecified upper limb] Onset: 02-18-2023 02-18-2023 Chronic Other non-traumatic joint disorders (2 sources) Pain in elbow; Translations: [Pain in right elbow] 08-28-2023 Episodic Other nutritional; endocrine; and metabolic disorders (3 sources) Disorder of carbohydrate metabolism; Translations: [Other disorders of intestinal carbohydrate absorption] Onset: 02-18-2023 02-18-2023 Chronic Other nutritional; endocrine; and metabolic disorders (9 sources) Morbid obesity; Translations: [Morbid (severe) obesity due to excess calories] Onset: 02-18-2023 02-18-2023 Chronic Residual codes; unclassified (9 sources) Sleep apnea; Translations: [Sleep apnea, unspecified] Onset: 02-18-2023 02-18-2023 Chronic Residual codes; unclassified (1 source) Sleep apnea, unspecified; Translations: [Sleep apnea, unspecified] Onset: 01-08-2024 Chronic Sprains and strains (2 sources) Unspecified sprain of right elbow, subsequent encounter; Translations: [Other specified aftercare] 08-28-2023 Episodic Superficial injury; contusion (2 sources) Contusion of right elbow; Translations: [Contusion of right elbow, subsequent encounter] 08-28-2023 Episodic Unclassified (1 source) right knee degenerative joint disease Onset: 02-04-2024 Viral infection (2 sources) Verruca plantaris; Translations: [Plantar wart] 04-19-2024 Episodic Past or Other Problems Problem Classification Problem Date Documented Da te Episodic/Chronic Mood disorders (6 sources) Mood disorders Onset: 10-22-2023 10-22-2023 Other acquired deformities (9 sources) Acquired spondylolisthesis ; Translations: [Spondylolisthesi s, site unspecified] Onset: 02-18-2023 02-18-2023 Episodic Other nervous system disorders (9 sources) Paresthesia; Translations: [Paresthesia of skin] Onset: 02-18-2023 02-18-2023 Episodic Results Test Name Value Interpretation Reference Range Facil ity XR KNEE RT 1 OR 2 VWSon 01-18 XR KNEE RT 1 OR 2 VWS XR KNEE RT 1 OR 2 VWS XR KNEE RT 1 OR 2 VWS INDICATION: Post-operative evaluation COMPARISON: None IMPRESSION: 1. Right knee arthroplasty in anatomic alignment and without acute hardware complication. 2. Presumed postoperative soft tissue/intra-articula r swelling and emphysema Finalized by Nilson Paniagua MD on 02/04/2024 10:41 AM Normal [facility] BASIC METABOLIC PANLon 01-07 Anion gap [Moles/Vol] 9 mmol/L Normal 5-15 [facility] Comment on above: Performed By: #### C BCA, BMP #### [facility] ([id number]) [address] [place] [address], [address] [place] [address] Calcium [Mass/Vol] 9.0 mg/dL Normal 8.5-10.5 [facility] Comment on above: Performed By: #### C LÁZARO, BMP #### [facility] ([id number]) [address], [address] [place] [address] Chloride [Moles/Vol] 91 mmol/L Low 98-109 [facility] Comment on above: Performed By: #### Bill SESAY, BMP #### [facility] ([id number]) [address], [facility] [address] [place] [address] CO2 [Moles/Vol] 29 mmol/L Normal 22-32 [facility] Comment on above: Performed By: #### Bill SESAY, BMP #### [facility] ([id number]) [address] [address] [place] [address] Creatinine [Mass/Vol] 0.70 mg/dL Normal 0.60-1.30 [facility] Comment on above: Result Comment: METH OD TRACEABLE TO IDMS STANDARD Performed By: #### C LÁZARO, BMP #### [facility] ([id number]) [address] [address] [place] [address] eGFR (CKD-EPI) NON-RACE DEPENDENT >90 Normal >59 [facility] Comment on above: Result Comment: Reported eGFR is based on the CKD-EPI 2020 equation that does not use a race coefficient. Performed By: #### Bill SESAY, BMP #### [facility] ([id number]) [address], [address] [place] [address] Glucose [Mass/Vol] 84 mg/dL Normal 65-99 [facility] Comment on above: Performed By: #### Bill SESAY, BMP #### [facility] ([id number]) [address], [address] [place] [address] Potassium [Moles/Vol] 3.9 mmol/L Normal 3.5-5.0 [facility] Comment on above: Performed By: #### C LÁAZRO, BMP #### [facility] ([id number]) [address], [address] [place] [address] Sodium [Moles/Vol] 129 mmol/L Low 134-146 [facility] Comment on above: Performed By: #### C BCA, BMP #### [facility] ([id number]) [address], [address] [place] [address] Urea nitrogen [Mass/Vol] 10 mg/dL Normal 5-27 [facility] Comment on above: Performed By: #### C LÁZARO, BMP #### [facility] ([id number]) [address], [address] [place] [address] CBC AND AUTO DIFFon 06-20-20 24 ABSOLUTE BASOPHIL 0.1 X10E9/L Normal 0.0-0.2 [facility] Comment on above: Performed By: #### C LÁZARO, BMP #### [facility] ([id number]) [address], [address] [place] [address] ABSOLUTE NEUTROPHIL 3.2 X10E9/L Normal 1.5-6.6 [facility] Comment on above: Performed By: #### C LÁZARO, BMP #### [facility] ([id number]) [address], [address] [place] [address] Basophils/100 WBC (Bld) 1.0 % Normal [facility] Comment on above: Performed By: #### C BCA, BMP #### [facility] ([id number]) [address], [address] [place] [address] Eosinophils (Bld) [#/Vol] 0.2 10*3/uL Normal 0.0-0.4 [facility] Comment on above: Performed By: #### C BCA, BMP #### [facility] ([id number]) [address], [address] [place] [address] Eosinophils/100 WBC (Bld) 4.1 % Normal [facility] Comment on above: Performed By: #### C LÁZARO, BMP #### [facility] ([id number]) [address], [address] [place] [address] Erythrocyte distribution width (RBC) [Ratio] 14.5 % Normal 11.5-15.0 [facility] Comment on above: Performed By: #### C LÁZARO, BMP #### [facility] ([id number]) [address], [facility] [address] [place] [address] Hematocrit (Bld) [Volume fraction] 43.0 % Normal 39-49 [facility] Comment on above: Performed By: #### Bill ESSAY, BMP #### [facility] ([id number]) [address] [address] [place] [address] Hemoglobin (Bld) [Mass/Vol] 14.9 g/dL Normal 13.0-17.0 [facility] Comment on above: Performed By: #### Bill SESAY, BMP #### [facility] ([id number]) [address], [address] [place] [address] Lymphocytes (Bld) [#/Vol] 1.5 10*3/uL Normal 1.0-3.5 [facility] Comment on above: Performed By: #### Bill SESAY, BMP #### [facility] ([id number]) [address], [facility] [address] [place] [address] Lymphocytes/100 WBC (Bld) 26.2 % Normal [facility] Comment on above: Performed By: #### Bill SESAY, BMP #### [facility] ([id number]) [address] [address] [place] [address] MCH (RBC) [Entitic mass] 33.8 pg Normal 27-34 [facility] Comment on above: Performed By: #### Bill SESAY, BMP #### [facility] ([id number]) [address], [address] [place] [address] MCHC (RBC) [Mass/Vol] 34.5 g/dL Normal 32-36 [facility] Comment on above: Performed By: #### C LÁZARO, BMP #### [facility] ([id number]) [address], [address] [place] [address] MCV (RBC) [Entitic vol] 98 fL Normal 80-100 [facility] Comment on above: Performed By: #### C LÁZARO, BMP #### [facility] ([id number]) [address], [address] [place] [address] Monocytes (Bld) [#/Vol] 0.8 10*3/uL Normal 0-0.9 [facility] Comment on above: Performed By: #### Bill SESAY, BMP #### [facility] ([id number]) [address], [address] [place] [address] Monocytes/100 WBC (Bld) 14.1 % Normal [facility] Comment on above: Performed By: #### C LÁZARO, BMP #### [facility] ([id number]) [address], [address] [place] [address] Neutrophils/100 WBC (Bld) 54.6 % Normal [facility] Comment on above: Performed By: #### C LÁZARO, BMP #### [facility] ([id number]) [address], [address] [place] [address] Platelet mean volume (Bld) [Entitic vol] 8.0 fL Normal 7-12 [facility] Comment on above: Performed By: #### C LÁZARO, BMP #### [facility] ([id number]) [address], [address] [place] [address] Platelets (Bld) [#/Vol] 268 10*3/uL Normal 150-450 [facility] Comment on above: Performed By: #### C BCA, BMP #### [facility] ([id number]) [address], [address] [place] [address] RBC COUNT 4.39 X10E12/L Normal 4.10-5.70 [facility] Comment on above: Performed By: #### C BCA, BMP #### [facility] ([id number]) [address], [address] [place] [address] WBC (Bld) [#/Vol] 5.8 10*3/uL Normal 4.0-11.0 [facility] Comment on above: Performed By: #### C BCA, BMP #### [facility] ([id number]) [address], [address] [place] [address] XR Elbow - right 2 Viewson 0 09-01-2023 Imaging Result: September 01, 2023 x-rays AP and lateral of the right elbow demonstrate calcification at the proximal portion of the olecranon with osteophyte formation around the elbow consistent with arthritis. No fractures are noted. Impression: Osteoarthritis of the right elbow Ever Denney D.O. [facility] Radiology Study observation (narrative) [facility] XR Elbow - right 2 ViewsOrde red By: Edmundo Denney on 09-01-2023 [facility] [employer] Work Phone: CREATIN[employer]on 04-26-2020 Creatinine [Mass/Vol] 0.87 mg/dL Normal 0.66-1.25 [place] Comment on above: Performed By: #### C FRANSISCO #### [facility] [address] [place], [place] [address] Courtney Claudio Creatinine [Mass/Vol] mg/dL Normal >=60 [facility] Comment on above: Performed By: #### C FRANSISCO #### [facility] [address] [place], [place] [address] Courtney Claudio COVID-19 PCRon 02-26-2020 SARS-CoV-2, RONEL Not Detected Normal Not Detected [facility] Comment on above: Result Comment: This test was developed and its performance characteristics determined by [employer]. This test has not been FDA cleared [...] assay. Performed By: #### C VDPCR #### [facility] [address] [place] [address] Courtneygwendolyn Claudio Vital Signs Date Time Vital Sign Value Performing Clinician Faci lity 04-22-2024 13:52-0400 Body height 170.2 cm Marcos Scott DPM Work Phone: [facility] 04-22-2024 13:52-0400 Body mass index (BMI) [Ratio] 28.98 kg/m2 Marcos Scott DPM Work Phone: [facility] 04-22-2024 13:52-0400 Body weight 83.92 kg Marcos Scott DPM Work Phone: [facility] 04-22-2024 13:52-0400 Diastolic blood pressure 79 mm[Hg] Marcos Scott DPM Work Phone: [facility] 04-22-2024 13:52-0400 Heart rate 76 /min Marcos Scott DPM Work Phone: [facility] 04-22-2024 13:52-0400 Respiratory rate 17 /min Marcos Scott DPM Work Phone: [facility] 04-22-2024 13:52-0400 Systolic blood pressure 125 mm[Hg] Marcos Scott DPM Work Phone: [facility] Healthcare Encounters Encounter Date Encounter Type Care Provider Facility Start: 04-27-2024 End: 04-27-2024 Bamboo flowsheet Edmundo Lackey Олег DO Work Phone: [facility] Start: 04-27-2024 End: 04-27-2024 Bamboo flowsheet Edmundo Ziyad Олег DO Work Phone: [facility] Start: 04-27-2024 End: 04-27-2024 Postop follow up visit related to original px Edmundo Ziyad Олег DO Work Phone: [facility] Comment on above: Primary osteoarthrit is of right knee; Status post right knee replacement Start: 04-27-2024 End: 04-27-2024 ambulatory EDMUNDO DENNEY Not Available Start: 04-22-2024 End: 04-22-2024 Bamboo flowsheet Marcos Scott DPM Work Phone: [facility] Start: 04-22-2024 End: 04-22-2024 Bamboo flowsheet Marcos Scott DPM Work Phone: [facility] Start: 04-22-2024 End: 04-22-2024 Office outpatient visit 15 minutes Marcos Scott DPM Work Phone: [facility] Comment on above: Verruca plantaris (P rimary Dx); Foot pain, right Start: 04-22-2024 End: 04-22-2024 ambulatory MARCOS SCOTT Not Available Start: 04-08-2024 End: 04-08-2024 ambulatory MARCOS SCOTT Not Available Start: 03-25-2024 End: 03-25-2024 ambulatory MARCOS SCOTT Not Available Start: 03-16-2024 End: 03-16-2024 ambulatory EDMUNDO DENNEY Not Available Start: 03-15-2024 End: 03-15-2024 ambulatory LUIS EDUARDO MAS Not Available Start: 03-12-2024 End: 03-12-2024 ambulatory ERNESTO TAI Not Available Start: 03-10-2024 End: 03-10-2024 ambulatory BUCK DEVRIESY Not Available Start: 03-08-2024 End: 03-08-2024 ambulatory ERNESTO TAI Not Available Start: 03-05-2024 End: 03-05-2024 ambulatory BUCK DEVRIESY Not Available Start: 03-01-2024 End: 03-01-2024 ambulatory ERNESTO TAI Not Available Start: 02-27-2024 End: 03-01-2024 ambulatory ERNESTO TAI Not Available Start: 02-25-2024 End: 02-25-2024 ambulatory BUCK CEE Not Available Start: 02-23-2024 End: 02-23-2024 ambulatory MARICRUZ WADSWORTH Not Available Start: 02-18-2024 End: 02-18-2024 ambulatory LUIS EDUARDO MAS Not Available Start: 02-17-2024 End: 02-17-2024 ambulatory EDMUNDO DENNEY Not Available Start: 02-06-2024 End: 02-06-2024 Evaluation and management of inpatient TERESE Galeano [facility] Start: 02-04-2024 End: 02-05-2024 ambulatory [facility] Start: 01-27-2024 End: 01-27-2024 ambulatory [facility] Start: 01-13-2024 End: 01-13-2024 ambulatory MARY LEE Not Available Start: 01-08-2024 End: 01-08-2024 ambulatory [facility] Start: 01-08-2024 Encounter for other preprocedural examination [facility] Start: 01-08-2024 End: 01-08-2024 ambulatory EDMUNDO Lackey ОЛЕГ Not Available Start: 11-25-2023 End: 11-25-2023 ambulatory LEWIS SOLO Not Available Start: 11-18-2023 End: 11-18-2023 ambulatory [facility] Not Available Start: 10-22-2023 End: 10-22-2023 ambulatory MARY LEE Not Available Start: 10-13-2023 End: 10-13-2023 ambulatory LORETO Strickland APLING Not Available Start: 09-29-2023 End: 09-30-2023 ambulatory Bogdan Calle MD Facility:[facility] Start: 09-15-2023 End: 09-15-2023 ambulatory LORETO CERVANTESING Not Available Start: 09-10-2023 End: 09-10-2023 ambulatory MARY LEE Not Available Start: 09-08-2023 End: 09-09-2023 ambulatory Bogdan Calle MD Facility:[facility] Start: 09-01-2023 Bamboo flowsheet Loreto Cervantesin g [employer] Work Phone: [facility] Start: 09-01-2023 Bamboo flowsheet Loreto Cervnatesin g [employer] Work Phone: [facility] Start: 09-01-2023 End: 09-01-2023 ambulatory LORETO B APLING Not Available Start: 09-01-2023 End: 09-01-2023 Office outpatient visit 15 minutes Loreto Em Cervantesing [employer] Work Phone: [facility] Comment on above: Right elbow pain (Pr imary Dx); Contusion of right elbow, subsequent encounter; Sprain of right elbow, subsequent encounter Start: 08-18-2023 End: 08-19-2023 ambulatory Bogdan Calle MD Facility:[facility] Start: 08-04-2023 End: 08-04-2023 ambulatory LORETO B APLING Not Available Start: 07-16-2023 End: 07-16-2023 ambulatory MARY LEE Not Available Start: 07-03-2023 End: 07-03-2023 ambulatory MARY LEE Not Available Start: 09-13-2020 End: 09-13-2020 Discharged Recurring Giorgio Hernandez [facility] [address] Start: 05-02-2020 Encounter for preprocedural laboratory examination AVILA AQUINO [place] Start: 04-26-2020 End: 04-27-2020 Patient encounter procedure MARY LEE Facility:[facility] Start: 02-25-2020 End: 02-26-2020 Patient encounter procedure AVILA AQUINO Facility:[facility] Encounter for preprocedural laboratory examination AVILA AQUINO [place] Procedures Date Procedure Procedure Detail Performing Clinician Start: 09-01-2023 Radex elbow 2 views Yudy Ojeda [employer] Work Phone: Start: 03-17-2015 Colonoscopy Loreto Louis elise [employer] Work Phone: Plan of Treatment Date Care Activity Detail Author Start: 11-03-2026 Screening for malign ant neoplasm of colon [facility] Start: 03-17-2025 Screening for malign ant neoplasm of colon [facility] Start: 10-21-2024 Medicare Annual Well ness (AWV) Medicare Annual Wellness (AWV) [facility] Start: 07-27-2024 End: 07-27-2024 Patient encounter procedure 07/27/2024 1:00 PM EST Office Visit [facility] [address] [place] [address] Marlon Contreras, [employer] [address] [place] [address] [facility] Start: 07-16-2024 Pneumococcal Vaccine : 65+ Years (2 - PCV) Pneumococcal Vaccine: 65+ Years (2 - PCV) [facility] Comment on above: Postponed from 07/30 (Patient Refused) Start: 07-16-2024 Pneumococcal Vaccine : 65+ Years (2 of 2 - PCV) Pneumococcal Vaccine: 65+ Years (2 of 2 - PCV) [facility] Comment on above: Postponed from 07/30 (Patient Refused) Start: 04-27-2024 End: 04-27-2024 Patient encounter procedure [facility] Comment on above: Primary osteoarthrit is of right knee; Status post right knee replacement Start: 04-22-2024 End: 04-22-2024 Patient encounter procedure 04/22/2024 1:40 PM EDT Office Visit [facility] [address] [place] [address] Marcos Scott DPM [address] [facility] [address] [place] [address] Verruca plantaris (Primary Dx); Foot pain, right [facility] Comment on above: Verruca plantaris (P rimary Dx); Foot pain, right Start: 03-21-2024 Influenza vaccination Influenza Vacc ine (#1) [facility] Start: 01-18-2024 Influenza vaccination Influenza Vacc ine (#1) [facility] Comment on above: Postponed from 03/21 (Patient Refused) Start: 09-15-2023 End: 09-15-2023 Patient encounter procedure 09/15/2023 1:15 PM EST Office Visit [facility] [address] [facility] [address] [place] [id number] Loreto Ojeda NP [address] [facility] [address] [place] [address] [facility] Start: 07-04-2023 Medicare Annual Well ness (AWV) Medicare Annual Wellness (AWV) [facility] Start: 09-28-2021 Screening for malign ant neoplasm of colon FIT-DNA [facility] Start: 1950 Screening for malign ant neoplasm of colon [facility] Immunizations Immunization Date Immunization Notes Care Provider Fa [facility] 07-11-2022 Influenza, High-dose Seasonal, Quadrivalent, Preservative Free Loreto Ojeda [employer] Work Phone: [facility] 07-11-2022 influenza virus vacc ine, unspecified formulation Loreto Ojeda [employer] Work Phone: [facility] 07-17-2021 Influenza, High-dose Seasonal, Quadrivalent, Preservative Free Loreto Ojeda [employer] Work Phone: [facility] 07-17-2021 Pfizer Purple Cap SARS-CoV-2 Vaccination Loreto Ojeda [employer] Work Phone: [facility] 04-20-2020 influenza, high dose seasonal, preservative-free Loreto Ojeda [employer] Work Phone: [facility] 07-30-2017 influenza, injectabl e, quadrivalent, contains preservative Loreto Ojeda [employer] Work Phone: [facility] 07-30-2017 pneumococcal polysaccharide vaccine, 23 valent Loreto Ojeda [employer] Work Phone: [facility] Payers Date Payer Category Payer Unknown [id number] 2022 Unknown [id number] 2020 Unknown [id number] 2017 Medicare [id number] 1959 Medicare [id number] 1959 Private Health Insurance [id number] 1952 Unknown [id number] 2.16.84 0.1.349246.3.579.2.593 1952 Unknown [id number] 2.16.84 0.1.276385.3.579.2.593 1952 Unknown [id number] 2.16. 840.1.357012.3.579.2.196 1952 Unknown [id number] 2.16. 840.1.841210.3.579.2.196 1952 Unknown [id number] 2.16. 840.1.678327.3.579.2.196 1952 Unknown [id number] 2.16.8 40.1.692992.3.579.2.1286 1952 Unknown [id number] 2.16.8 40.1.169958.3.579.2.1286 1952 Unknown [id number] 2.16.8 40.1.938458.3.579.2.1286 1952 Unknown [id number] 2.16.8 40.1.836853.3.579.2.128 1952 Unknown [id number] 2.16.8 40.1.197499.3.579.2.1285 1952 Unknown [id number] 2.16.8 40.1.922409.3.579.2.1285 1952 Unknown [id number] 2.16.8 40.1.394379.3.579.2.1285 1952 Unknown [id number] 2.16.84 0.1.727827.3.579.2.1258 1952 Unknown [id number] 2.16.84 0.1.128593.3.579.2.1258 1952 Unknown [id number] 2.16.84 0.1.015425.3.579.2.1258 1952 Unknown [id number] 2.16.84 0.1.661451.3.579.2.1258 1952 Unknown [id number] 2.16.84 0.1.281422.3.579.2.1258 1952 Unknown [id number] 2.16.84 0.1.588548.3.579.2.1258 1952 Unknown [id number] 2.16.84 0.1.957779.3.579.2.9 1952 Unknown [id number] 2.16.84 0.1.321146.3.579.2.1258 1952 Unknown [id number] 2.16.84 0.1.646030.3.579.2.1258 1952 Unknown [id number] 2.16.84 0.1.558480.3.579.2.1258 1952 Unknown [id number] 2.16.84 0.1.639205.3.579.2.1258 1952 Unknown [id number] 2.16.84 0.1.791173.3.579.2.1258 1952 Unknown [id number] 2.16.84 0.1.942355.3.579.2.1259 1952 Unknown [id number] 2.16.84 0.1.213748.3.579.2.1258 1952 Unknown [id number] 2.16.84 0.1.170579.3.579.2.9 1952 Unknown [id number] 2.16.84 0.1.204595.3.579.2.1258 1952 Unknown [id number] 2.16.84 0.1.281634.3.579.2.1258 1952 Unknown [id number] 2.16.84 0.1.194291.3.579.2.1258 1952 Unknown [id number] 2.16.84 0.1.717189.3.579.2.1258 1952 Unknown [id number] 2.16.84 0.1.480798.3.579.2.1258 1952 Unknown [id number] 2.16.84 0.1.038702.3.579.2.1258 1952 Unknown [id number] 2.16.84 0.1.718253.3.579.2.1258 1952 Unknown [id number] 2.16.84 0.1.038621.3.579.2.9 1952 Unknown [id number] 2.16.84 0.1.809204.3.579.2.1258 1952 Unknown [id number] 2.16.84 0.1.386263.3.579.2.1258 1952 Unknown [id number] 2.16.84 0.1.645658.3.579.2.1258 1952 Unknown [id number] 2.16.84 0.1.812221.3.579.2.9 1952 Unknown [id number] 2.16.84 0.1.178350.3.579.2.1258 1952 Unknown [id number] 2.16.84 0.1.452340.3.579.2.1259 1952 Unknown [id number] 2.16.84 0.1.736887.3.579.2.1259 1952 Unknown [id number] 2.16.840 .1.930385.3.579.2.1259 1952 Unknown [id number] 2.16.840 .1.445746.3.579.2.1259 Self-pay Self Pay [id number] Social History Date Type Detail Facility Tobacco smoking stat [facility] Unknown if ever smoked [facility] Start: 1950 Sex Assigned At Male [facility] Start: 08-04-2023 End: 01-08-2024 Tobacco smoking status [facility] Ex-smoker [facility] End: 07-21-2003 History of tobacco use Current smoker [facility] End: 07-21-2003 History of tobacco use Cigarette Smoker [facility] Start: 08-04-2023 End: 01-08-2024 Tobacco use and exposure Smokeless tobacco non-user [facility] Start: 08-04-2023 End: 04-22-2024 Alcohol intake Current drinker of alcohol (finding) [facility] Start: 08-04-2023 End: 10-22-2023 History of Social function [facility] Start: 08-04-2023 End: 10-22-2023 Tobacco use panel [facility] Start: 07-03-2023 Alcohol Comment caffeine yes t ype: coffee [facility] Start: 1950 Sex Assigned At Not on file [facility] Goals Date Patient Goal Desired Activity /State History of Present illness Narrative 04-27-2024 Edmundo Denney DO - 04/27/2024 11:15 AM EDT Note Date & Type Note Facility 04-27-2024 History of Presen t illness Narrative Images from the original note were not included. HISTORY OF PRESENT ILLNESS: Michael Vaughn is an 74 y.o. @ male. Follow up RT TKA RT knee: 12 weeks s/p RT TKA (02/04/24) Presents FWB without assistance. He is doing well, he is feeling good. Denies pain today. Taking norco rarely. Denies N/T. Scar healing well. Pt is very happy with outcome so far. MEDICATION: Current Outpatient Medications on File Prior to Visit Medication Sig Dispense Refill ALPRAZolam (Xanax) 0.25 MG tablet TAKE ONE TABLET BY MOUTH THREE TIMES A DAY NEEDED FOR ANXIETY 30 tablet 2 Blood Pressure kit 1 Units in the morning and 1 Units in the evening and 1 Units before bedtime. 1 kit 0 busPIRone (Buspar) 5 MG tablet TAKE TWO TABLETS BY MOUTH EVERY MORNING, TAKE ONE TABLET BY MOUTH EVERY AFTERNOON, AND TAKE ONE TABLET BY MOUTH EVERY EVENING 450 tablet 3 carvedilol (Coreg) 12.5 MG tablet TAKE 1 TABLET BY MOUTH TWICE A DAY 200 tablet 3 hydroCHLOROthiazide (HYDRODiuril) 50 MG tablet Take 1 tablet (50 mg) by mouth Daily 90 tablet 3 HYDROcodone-acetaminophen (Jefferson) 5-325 MG tablet tamsulosin (Flomax) 0.4 MG 24 hr capsule TAKE 1 CAPSULE BY MOUTH DAILY 90 capsule 1 tiZANidine (Zanaflex) 4 MG tablet Take 1 tablet (4 mg) by mouth every 6 (six) hours if needed for muscle spasms 30 tablet 2 venlafaxine (Effexor) 75 MG tablet TAKE 1 TABLET BY MOUTH 3 TIMES A DAY WITH FOOD 300 tablet 0 No current facility-administered medications on file prior to visit. MEDICAL HISTORY: Past Medical History: Diagnosis Date Aphthous ulcer Cerebrovascular accident (CMS/HCC) Depression (CMS/HCC) Dizziness Elevated blood pressure reading Hypertension (CMS/HCC) Lymphadenitis Sleep apnea ALLERGIES: No Known Allergies VITALS: Visit Vitals Smoking Status Former PHYSICAL EXAM: Ortho Exam RIGHT KNEE No instability ROM 0-100 Incision healing nicely Ambulating without assisted devices ASSESSMENT: ICD-10-CM 1. Primary osteoarthritis of right knee M17.11 2. Status post right knee replacement Z96.651 PLAN: Discussed post op care and restrictions. I discussed with the patient the general recommendation for the use of prophylactic antibiotics prior to dental work after joint replacement. I advised the patient that the use of prophylactic antibiotics for dental work is a controversial topic. I currently have recommended that prophylactic antibiotics be used for 2 years postop and I did advise the patient that the guidelines and recommendations may change on this in the future. I answered all of the patient's questions. Follow up in 3 months with xrays, any issues/concerns follow up sooner. Dr. Denney obtained history and examined the patient, I am acting as scribe for Dr. Denney/susan Denney D.O. documented in this encounter [facility] History of Present illness Narrative 04-22-2024 Marcos Scott DPM - 04/22/2024 1:40 PM EDT Note Date & Type Note Facility 04-22-2024 History of Presen t illness Narrative Patient: Michael Vaughn : 1950 PCP: Avila Aquino MD SUBJECTIVE Patient presents today for follow up of skin lesion/neoplasm of unknown origin to the right foot Pt states that previous treatment of acid tx with some improvement Pt rates pain the pain on a 1-10 scale an intensity of 0 Pt presents today for followup. Allergies: No Known Allergies Past Medical History: Past Medical History: Diagnosis Date Aphthous ulcer Cerebrovascular accident (CMS/HCC) Depression (CMS/HCC) Dizziness Elevated blood pressure reading Hypertension (CMS/HCC) Lymphadenitis Sleep apnea Medications: Current Outpatient Medications: ALPRAZolam (Xanax) 0.25 MG tablet, TAKE ONE TABLET BY MOUTH THREE TIMES A DAY NEEDED FOR ANXIETY, Disp: 30 tablet, Rfl: 2 Blood Pressure kit, 1 Units in the morning and 1 Units in the evening and 1 Units before bedtime., Disp: 1 kit, Rfl: 0 busPIRone (Buspar) 5 MG tablet, TAKE TWO TABLETS BY MOUTH EVERY MORNING, TAKE ONE TABLET BY MOUTH EVERY AFTERNOON, AND TAKE ONE TABLET BY MOUTH EVERY EVENING, Disp: 450 tablet, Rfl: 3 carvedilol (Coreg) 12.5 MG tablet, TAKE 1 TABLET BY MOUTH TWICE A DAY, Disp: 200 tablet, Rfl: 3 hydroCHLOROthiazide (HYDRODiuril) 50 MG tablet, Take 1 tablet (50 mg) by mouth Daily, Disp: 90 tablet, Rfl: 3 HYDROcodone-acetaminophen (Jefferson) 5-325 MG tablet, , Disp: , Rfl: tamsulosin (Flomax) 0.4 MG 24 hr capsule, TAKE 1 CAPSULE BY MOUTH DAILY, Disp: 90 capsule, Rfl: 1 tiZANidine (Zanaflex) 4 MG tablet, Take 1 tablet (4 mg) by mouth every 6 (six) hours if needed for muscle spasms, Disp: 30 tablet, Rfl: 2 venlafaxine (Effexor) 75 MG tablet, TAKE 1 TABLET BY MOUTH 3 TIMES A DAY WITH FOOD, Disp: 300 tablet, Rfl: 0 Social History: Social History Socioeconomic History Marital status: Spouse name: Not on file Number of children: Not on file Years of education: Not on file Highest education level: Not on file Occupational History Not on file Tobacco Use Smoking status: Former Current packs/day: 0.00 Types: Cigarettes Quit date: 2003 Years since quittin.7 Smokeless tobacco: Never Vaping Use Vaping status: Every Day Substance and Sexual Activity Alcohol use: Yes Comment: caffeine yes type: coffee Drug use: Never Sexual activity: Not on file Other Topics Concern Not on file Social History Narrative Not on file Social Determinants of Health Financial Resource Strain: Not on file Food Insecurity: No Food Insecurity (02/04/2024) Received from [facility] Hunger Screening Within the past 12 months we worried whether our food would run out before we got money to buy more.: Never True Within the past 12 months the food we bought just didn't last and we didn't have money to get more.: Never True Transportation Needs: No Transportation Needs (02/04/2024) Received from [facility] PRAPARE - Transportation Lack of Transportation (Medical): No Lack of Transportation (Non-Medical): No Physical Activity: Not on file Stress: Not on file Social Connections: Not on file Intimate Partner Violence: Not on file Housing Stability: Low Risk (02/04/2024) Received from [facility] Housing Instability Are you worried or concerned that in the next two months you may not have stable housing that you own, rent or stay in as a part of a household?: No ROS: General: denies fever, chills, fatigue, malaise Gastrointestinal: denies abdominal pain, ulcers, or changes in appetite or bowel habits Musculoskeletal: Positive history of total knee replacement recently and history of arthritis, denies loss of strength, pain to hip, knees, back Cardiovascular: denies CP, palpitations, irregular rhythms OBJECTIVE LE EXAM: DERM: Positive hair growth to b/l feet with good skin turgor noted. Negative openings in skin. Nummular lesion measuring at the right sub 5th metatarsal region has resolved lesion with scar tissue.. Notable to right sub 4th metatarsal r has resolved lesions with scar tissue and dry skin VASC: Palpable pedal pulsed b/l with warm to cool tibia to toes b/l NEURO: Gross sensation intact digits 1-10 and b/l feet ORTHO: +5/5 DF/PF/IN/EV right, +5/5 DF/PF/IN/EV left. 20 degrees inversion and 10 degrees eversion STJ b/l. Ankle ROM less than 10 degrees b/l. Negative pain on palpation to right foot lesions XRAY: US: ASSESSMENT 1. Verruca plantaris 2. Foot pain, right PLAN Patient observe for any changes feet including recurrence of lesions if they do reoccur but discuss further treatment options including surgical excision however at this time patient just to monitor for any return of lesions and return to clinic p.r.n. Marcos Scott DPM documented in this encounter [facility] History of Present illness Narrative 09-01-2023 Loreto Ojeda NP - 09/01/2023 1:15 PM EST Note Date & Type Note Facility 09-01-2023 History of Presen t illness Narrative Subjective Patient ID: Michael Vaughn is a 73 y.o. male. RT Elbow *cast off and xrays Pt is RT handed Pt fell 5 weeks 2 days ago (DOI 07/26/23) and landed on Rt elbow. Pt was placed in a long posterior splint and prescribed Jefferson. Presents in LAC. Removed today. Denies pain. [...] with bruce therapy, documented in this encounter [facility] Evaluation note Note Date & Type Note Facility Evaluation note Diagnosis Right elbow pain- Primary Pain in joint, upper arm Contusion of right elbow, subsequent encounter Sprain of right elbow, subsequent encounter documented in this encounter [facility] Evaluation note Note Date & Type Note Facility Evaluation note Diagnosis Verruca plantaris- Primary Plantar wart Foot pain, right Pain in soft tissues of limb documented in this encounter [facility] Evaluation note Note Date & Type Note Facility Evaluation note Diagnosis Primary osteoarthritis of right knee Status post right knee replacement documented in this encounter [facility] Summary Purpose Family History No Family History Records FoundNo Family History Records FoundNo Family History Records FoundNo Family History Records Found Advance Directives Advance Directive Response Recorded Date/ Time Advance Directives No May 4:12pm Chief Complaint and Reason for Visit Chief Complaint R leg Lymphedema Assessments No Assessments Information Available Additional Source Comments (unrecognized sect ion and content) No Status Records FoundNo Status Records FoundNo Status Records FoundNo Status Records Found INFORMATION SOURCE (unrecogn ized section and content) DATE CREATED AUTHOR 05/03/2020 [facility] DATE CREATED AUTHOR AUTHOR'S ORGANIZ ATION 10/07/2023 [facility] DATE CREATED AUTHOR AUTHOR'S ORGANIZ ATION 02/07/2024 [facility] DATE CREATED AUTHOR AUTHOR'S ORGANIZ ATION 04/29/2024 [facility] Care Teams (unrecognized sec tion and content) Sports Photographer Relationship Specialty Start Date End Date Mary Lee [employer] [address] [place] [address] PCP - ACO Reach 12/12/22 Sports Photographer Relationship Specialty Start Date End Date Mary Lee [employer]EM[employer]IXER [address] [place] [address] PCP - ACO Reach 12/12/22 Sports Photographer Relationship Specialty Start Date End Date Avila Aquino MD [address] [place] [address] PCP - General Family Medicine 09/15/23 Mary Lee [employer]EMARK [employer]IXER [address] [place] [address] PCP - ACO Reach 11/19/23 Sports Photographer Relationship Specialty Start Date End Date Avila Aquino MD [address] [place] [address] PCP - General Family Medicine 09/15/23 Mary Lee [employer]EM[employer] [address] [place] [address] PCP - ACO Reach 11/19/23 Sports Photographer Relationship Specialty Start Date End Date Avila Aquino MD [address] [place] [address] PCP - General Family Medicine 09/15/23 Mary Lee NP [address] [facility] [place] [address] PCP - ACO Reach 11/19/23 Sports Photographer Relationship Specialty Start Date End Date Avila Aquino MD [address] [facility] [address] [place] [address] PCP - General Family Medicine 09/15/23 Mary Lee NP [address] [facility] [place] [address] PCP - ACO Reach 11/19/23 Reason for Visit (unrecogniz ed section and content) Reason Comments Follow-up Rt lesions Reason Comments Follow-up FOR RECORDS PERTAINING TO PATIENTS WHO ARE [...] BE BASED ON THE PRIMARY CLINICAL RECORDS. [employer] [facility]. provides no warranty or guarantee of the accuracy or completeness of information in this document.
== END 2024-05-11 12:19 | disposition home or self-care (01) ==
LOC: PM 12:18
PROVIDERS: PCP Family Medicine; Visit Provider Anesthesiology Pain Medicine
DX: M79.18 Myalgia, other site (principal)
CPT/HCPCS: 20552; J0665; J3301

== ENCOUNTER 2024-05-24 10:51 | Day surgery (SDC) | payer MEDICARE, OTHER, SELFPAY ==
[2024-05-24 11:26] VITALS: BP 141/84; PULSE 58; TEMP 36.2; O2SAT 99
[2024-05-24 11:52] VITALS: BP 139/69; PULSE 58; O2SAT 97
[2024-05-24 11:53] VITALS: BP 147/73; PULSE 56; O2SAT 93
--- NOTE | 2024-05-24 11:55 | P.ON_ITS ---
Date of procedure: 05/24/24 Pre-op diagnosis: Pain due to cervical spondylosis Post-op diagnosis: same as pre-op Procedure: Procedure: Left C4-5, 5-6 medial branch block Medications: Bupivacaine 0.25% 3cc The patient was seen and examined in the preoperative holding area.? The in formed consent was obtained and placed on the chart.? The patient was brought to the medical procedure unit and placed in the prone position.? A timeout was completed verifying correct patient, procedure site, positioning, plan, and special equipment.? Using aseptic technique, the needle is placed at left C4. Under direct fluoroscopic visualization, a Quincke tip needle was advanced to the midpoint of the waist of the articular pillar at the respective medial branch segment. The above-mentioned injectate was placed in a 1 mL aliquot proceeded by negative aspiration.? The needle was removed.? The procedure was completed at left C5, 6. Insertion site was covered.? Patient was taken to the postprocedural recovery area and monitored for an appropriate length of time before found suitable for discharge in the accompaniment of a responsible adult. Anesthesia: Local Surgeon: Bogdan Calle Pathology: none sent Condition: stable Disposition: no change
[2024-05-24] MEDS: BUPIVACAINE HCL 0.25% PF 25 MG/10 ML VIAL INJ (11:56)
[2024-05-24] MEDS: LIDOCAINE HCL 2% 400 MG/20 ML MDV INJ (11:56)
== END 2024-05-24 12:00 | disposition home or self-care (01) ==
LOC: SURGOUT 10:53
PROVIDERS: PCP Family Medicine; Visit Provider Anesthesiology
DX: M47.812 Spondylosis without myelopathy or radiculopathy, cervical region (principal)
CPT/HCPCS: 64490; 64491; J0665

== ENCOUNTER 2024-05-26 12:50 | Outpatient (OUT) | payer MEDICARE, OTHER, SELFPAY ==
--- OUTSIDE RECORDS SUMMARY | 2024-05-26 13:11 | XMS_ITS | CCD ---
Author Organization [facility] Care Team Providers Care Cleater Name Role Phone KENIA, RUGEN Admitting Unavailable KENIA RUGEN Attending Unavailable MISC, DOCTOR Primary Care Unavailable KENIA, RUGEN Consulting Unavailable RENZO LEERI Admitting Unavailable MARY LEE Attending Unavailable KENIA, RUGEN Primary Care Unavailable MARY LEE Consulting Unavailable Giorgio Hernandez Attending Provider [phone] Mary Lee Primary Care Provider Jesus RETIREMENT SPECIALIST, Mary Temple Unavailable [phone] Luc CATHERINE, Bogdan Snyder Attending Unavailable Luc [...] Primary Care Unavailable TERESE RODRIGUEZ Attending Unavailable RENZO LEERI M Primary Care Unavailable MARY LEE M Attending Unavailable APLINGLORETO Attending Unavailable APLINGLORETO Attending Unavailable APLINGLORETO Referring Unavailable MARY LEE M Attending Unavailable APLINGLORETO Attending Unavailable APLINGLORETO Attending Unavailable MARY LEE Attending Unavailable EDMUNDO DENNEY Attending Unavailable EDMUNDO DENNEY Referring Unavailable LEWIS SOLO Attending Unavailable EDMUNDO DENNEY Referring Unavailable EDMUNDO DENNEY Attending Unavailable MARY ELE Attending Unavailable EDMUNDO DENNEY Attending Unavailable CHACE, LUIS EDUARDO Mckoy Attending Unavailable ACE, EDMUNDO Lackey Referring Unavailable CEDRICLORETO JIANGH Attending Unavailable ACE, EDMUNDO Lackey Referring Unavailable BUCK CEE Attending Unavailable ACE, EDMUNDO Lackey Referring Unavailable ERNESTO TAI Attending Unavailable ACE, EDMUNDO Lackey Referring Unavailable ERNESTO TAI Attending Unavailable ACE, EDMUNDO Lackey Referring Unavailable BUCK CEE Attending Unavailable ACE, EDMUNDO Lackey Referring Unavailable ERNESTO TAI Attending Unavailable ACE, EDMUNDO Lackey Referring Unavailable BUCK CEE Attending Unavailable ACE, EDMUNDO Lackey Referring Unavailable ERNESTO TAI Attending Unavailable ACE, EDMUNDO Lackey Referring Unavailable LUIS EDUARDO MAS Attending Unavailable ACE, EDMUNDO Lackey Referring Unavailable ACE, EDMUNDO Lackey Attending Unavailable ACE, EDMUNDO Lackey Referring Unavailable MARCOS SCOTT Attending [...] (9 sources) Opioid Agonist HYDROcodone-acet a minophen (Summit) 5-325 MG tablet Active ALPRAZolam 0.25 mg [...] Start: 07-28-2023 take 1 capsule by mo [facility] once daily in the morning hydroCHLOROthiazide [...] Paniagua MD on 02/04/2024 10:41 AM Normal [facility] BASIC METABOLIC PANLon 01-07 Anion gap [Moles/Vol] 9 mmol/L Normal 5-15 [facility] Comment on above: Performed By: #### C BCA, BMP #### [facility] ([id number]) [address] [place] [address], [address] [place] [address] Calcium [Mass/Vol] 9.0 mg/dL Normal 8.5-10.5 [facility] Comment on above: Performed By: #### C LÁZARO, BMP #### [facility] ([id number]) [address], [address] [place] [address] Chloride [Moles/Vol] 91 mmol/L Low 98-109 [facility] Comment on above: Performed By: #### Bill SESAY, BMP #### [facility] ([id number]) [address], [facility] [address] [place] [address] CO2 [Moles/Vol] 29 mmol/L Normal 22-32 [facility] Comment on above: Performed By: #### Bill SESAY, BMP #### [facility] ([id number]) [address] [address] [place] [address] Creatinine [Mass/Vol] 0.70 mg/dL Normal 0.60-1.30 [facility] Comment on above: Result Comment: METH OD TRACEABLE TO IDMS STANDARD Performed By: #### C LÁZARO, BMP #### [facility] ([id number]) [address] [place] [address] eGFR (CKD-EPI) NON-RACE DEPENDENT >90 Normal >59 [facility] Comment on above: Result Comment: Reported eGFR is based on the CKD-EPI 2020 equation that does not use a race coefficient. Performed By: #### Bill SESAY, BMP #### [facility] ([id number]) [address], [address] [place] [address] Glucose [Mass/Vol] 84 mg/dL Normal 65-99 [facility] Comment on above: Performed By: #### Bill SESAY, BMP #### [facility] ([id number]) [address], [address] [place] [address] Potassium [Moles/Vol] 3.9 mmol/L Normal 3.5-5.0 [facility] Comment on above: Performed By: #### C LÁZARO, BMP #### [facility] ([id number]) [address], [address] [place] [address] Sodium [Moles/Vol] 129 mmol/L Low 134-146 [facility] Comment on above: Performed By: #### C BCA, BMP #### [facility] ([id number]) [address], [address] [place] [address] Urea nitrogen [Mass/Vol] 10 mg/dL Normal 5-27 [facility] Comment on above: Performed By: #### C LÁZARO, BMP #### [facility] ([id number]) [address], [address] [place] [address] CBC AND AUTO DIFFon 06-20-20 24 ABSOLUTE BASOPHIL 0.1 X10E9/L Normal 0.0-0.2 [facility] Comment on above: Performed By: #### C LÁZARO, BMP #### [facility] ([id number]) [address], [address] [place] [address] ABSOLUTE NEUTROPHIL 3.2 X10E9/L Normal 1.5-6.6 [facility] Comment on above: Performed By: #### C LÁZARO, BMP #### [facility] ([id number]) [address], [address] [place] [address] Basophils/100 WBC (Bld) 1.0 % Normal [facility] Comment on above: Performed By: #### C BCA, BMP #### [facility] ([id number]) [address], [address] [place] [address] Eosinophils (Bld) [#/Vol] 0.2 10*3/uL Normal 0.0-0.4 [facility] Comment on above: Performed By: #### C BCA, BMP #### [facility] ([id number]) [address], [address] [place] [address] Eosinophils/100 WBC (Bld) 4.1 % Normal [facility] Comment on above: Performed By: #### C LÁZARO, BMP #### [facility] ([id number]) [address], [address] [place] [address] Erythrocyte distribution width (RBC) [Ratio] 14.5 % Normal 11.5-15.0 [facility] Comment on above: Performed By: #### C LÁZARO, BMP #### [facility] ([id number]) [address] [facility] [address] [place] [address] Hematocrit (Bld) [Volume fraction] 43.0 % Normal 39-49 [facility] Comment on above: Performed By: #### Bill SESAY, BMP #### [facility] ([id number]) [address] [address] [place] [address] Hemoglobin (Bld) [Mass/Vol] 14.9 g/dL Normal 13.0-17.0 [facility] Comment on above: Performed By: #### Bill SESAY, BMP #### [facility] ([id number]) [address], [address] [place] [address] Lymphocytes (Bld) [#/Vol] 1.5 10*3/uL Normal 1.0-3.5 [facility] Comment on above: Performed By: #### Bill SESAY, BMP #### [facility] ([id number]) [address] [facility] [address] [place] [address] Lymphocytes/100 WBC (Bld) 26.2 % Normal [facility] Comment on above: Performed By: #### Bill SESAY, BMP #### [facility] ([id number]) [address] [place] [address] MCH (RBC) [Entitic mass] 33.8 pg Normal 27-34 [facility] Comment on above: Performed By: #### Bill SESAY, BMP #### [facility] ([id number]) [address], [address] [place] [address] MCHC (RBC) [Mass/Vol] 34.5 g/dL Normal 32-36 [facility] Comment on above: Performed By: #### C LÁZARO, BMP #### [facility] ([id number]) [address], [address] [place] [address] MCV (RBC) [Entitic vol] 98 fL Normal 80-100 [facility] Comment on above: Performed By: #### C LÁZARO, BMP #### [facility] ([id number]) [address], [address] [place] [address] Monocytes (Bld) [#/Vol] 0.8 10*3/uL Normal 0-0.9 [facility] Comment on above: Performed By: #### Bill SESAY, BMP #### [facility] ([id number]) [address], [address] [place] [address] Monocytes/100 WBC (Bld) 14.1 % Normal [facility] Comment on above: Performed By: #### C LÁZARO, BMP #### [facility] ([id number]) [address], [address] [place] [address] Neutrophils/100 WBC (Bld) 54.6 % Normal [facility] Comment on above: Performed By: #### C LÁZARO, BMP #### [facility] ([id number]) [address], [address] [place] [address] Platelet mean volume (Bld) [Entitic vol] 8.0 fL Normal 7-12 [facility] Comment on above: Performed By: #### C LÁZARO, BMP #### [facility] ([id number]) [address], [address] [place] [address] Platelets (Bld) [#/Vol] 268 10*3/uL Normal 150-450 [facility] Comment on above: Performed By: #### C BCA, BMP #### [facility] ([id number]) [address], [address] [place] [address] RBC COUNT 4.39 X10E12/L Normal 4.10-5.70 [facility] Comment on above: Performed By: #### C BCA, BMP #### [facility] ([id number]) [address], [address] [place] [address] WBC (Bld) [#/Vol] 5.8 10*3/uL Normal 4.0-11.0 [facility] Comment on above: Performed By: #### C BCA, BMP #### [facility] ([id number]) [address], [address] [place] [address] XR Elbow - right 2 Viewson 0 09-01-2023 Imaging Result: September 01, 2023 x-rays AP and lateral of the right elbow demonstrate calcification at the proximal portion of the olecranon with osteophyte formation around the elbow consistent with arthritis. No fractures are noted. Impression: Osteoarthritis of the right elbow Ever Denney D.O. [facility] Radiology Study observation (narrative) [facility] XR Elbow - right 2 ViewsOrde red By: Edmundo Denney on 09-01-2023 [facility] [employer] Work Phone: CREATININEon 04-26-2020 Creatinine [Mass/Vol] 0.87 mg/dL Normal 0.66-1.25 [facility] Comment on above: Performed By: #### C FRANSISCO #### [facility] [address] [place], [place] [address] Courtney Claudio Creatinine [Mass/Vol] mg/dL Normal >=60 [facility] Comment on above: Performed By: #### C FRANSISCO #### [facility] [address] [place], [place] [address] Courtney Claudio COVID-19 PCRon 02-26-2020 SARS-CoV-2, RONEL Not Detected Normal Not Detected [facility] Comment on above: Result Comment: This test was developed and its performance characteristics determined by [facility]. This test has not been FDA cleared [...] assay. Performed By: #### C VDPCR #### [facility] [address] [place] [address] Courtneygwendolyn Claudio Vital Signs Date Time Vital Sign Value Performing Clinician Faci lity 04-22-2024 13:52-0400 Body height 170.2 cm Marcos Scott DPM Work Phone: [facility] 04-22-2024 13:52-0400 Body mass index (BMI) [Ratio] 28.98 kg/m2 Marcos Scott DPM Work Phone: [facility] 04-22-2024 13:52-0400 Body weight 83.92 kg Marcos Scott DPM Work Phone: [facility] 04-22-2024 13:52-0400 Diastolic blood pressure 79 mm[Hg] Marcos Scott DPM Work Phone: [facility] 04-22-2024 13:52-0400 Heart rate 76 /min Marcos Scott DPM Work Phone: [facility] 04-22-2024 13:52-0400 Respiratory rate 17 /min Marcos Scott DPM Work Phone: [facility] 04-22-2024 13:52-0400 Systolic blood pressure 125 mm[Hg] Marcos Scott DPM Work Phone: [facility] Encounters Encounter Date Encounter Type Care Provider Facility Start: 04-27-2024 End: 04-27-2024 Bamboo flowsheet Edmundo Lackey Олег DO Work Phone: [facility] Start: 04-27-2024 End: 04-27-2024 Bamboo flowsheet Edmundo Ziyad Олег DO Work Phone: [facility] Start: 04-27-2024 End: 04-27-2024 Postop follow up visit related to original px Edmundo Ziyad Олег DO Work Phone: [facility] Comment on above: Primary osteoarthrit is of right knee; Status post right knee replacement Start: 04-27-2024 End: 04-27-2024 ambulatory EDMUNDO DENNEY Not Available Start: 04-22-2024 End: 04-22-2024 Bamboo flowsheet Marcos Scott DPM Work Phone: [facility] Start: 04-22-2024 End: 04-22-2024 Bamboo flowsheet Marcos Scott DPM Work Phone: [facility] Start: 04-22-2024 End: 04-22-2024 Office outpatient visit 15 minutes Marcos Scott DPM Work Phone: [facility] Comment on above: Verruca plantaris [...] Evaluation and management of inpatient TERESE Galeano [facility] Start: 02-04-2024 End: 02-05-[address] [facility] Start: 01-27-2024 End: 01-27-[address] [facility] Start: 01-13-2024 End: 01-13-2024 ambulatory MARY LEE Not Available Start: 01-08-2024 End: 01-08-[address] [facility] Start: 01-08-2024 Encounter for other preprocedural examination [facility] Start: 01-08-2024 End: 01-08-2024 ambulatory EDMUNDO Lackey ОЛЕГ Not Available Start: 11-25-2023 End: 11-25-2023 ambulatory LEWIS SOLO Not Available Start: 11-18-2023 End: 11-18-2023 ambulatory [facility] Not Available Start: 10-22-2023 End: 10-22-2023 ambulatory MARY LEE Not Available Start: 10-13-2023 End: 10-13-2023 ambulatory LORETO Strickland APLING Not Available Start: 09-29-2023 End: 09-30-2023 ambulatory Bogdan Calle MD Facility:[facility] Start: 09-15-2023 End: 09-15-2023 ambulatory LORETO CERVANTESING Not Available Start: 09-10-2023 End: 09-10-2023 ambulatory MARY LEE Not Available Start: 09-08-2023 End: 09-09-2023 ambulatory Bogdan Calle MD Facility:[facility] Start: 09-01-2023 Bamboo flowsheet Loreto Cervantesin g RETIREMENT SPECIALIST Work Phone: [facility] Start: 09-01-2023 Bamboo flowsheet Loreto Cervantesin g RETIREMENT SPECIALIST Work Phone: [facility] Start: 09-01-2023 End: 09-01-2023 ambulatory LORETO B APLING Not Available Start: 09-01-2023 End: 09-01-2023 Office outpatient visit 15 minutes Loreto Em Cervantesing RETIREMENT SPECIALIST Work Phone: [facility] Comment on above: Right elbow pain (Pr imary Dx); Contusion of right elbow, subsequent encounter; Sprain of right elbow, subsequent encounter Start: 08-18-2023 End: 08-19-2023 ambulatory Bogdan Calle MD Facility:[facility] Start: 08-04-2023 End: 08-04-2023 ambulatory LORETO B APLING Not Available Start: 07-16-2023 End: 07-16-2023 ambulatory MARY LEE Not Available Start: 07-03-2023 End: 07-03-2023 ambulatory MARY LEE Not Available Start: 09-13-2020 End: 09-13-2020 Discharged Recurring Giorgio Hernandez [facility] [address] Start: 05-02-2020 Encounter for preprocedural laboratory examination AVILA AQUINO [facility] Start: 04-26-2020 End: 04-27-2020 Patient encounter procedure MARY LEE Facility:[facility] Start: 02-25-2020 End: 02-26-2020 Patient encounter procedure AVILA AQUINO Facility:[facility] Encounter for preprocedural laboratory examination AVILA AQUINO [facility] Procedures Date Procedure Procedure Detail Performing Clinician Start: 09-01-2023 Radex elbow 2 views Yudy Ojeda RETIREMENT SPECIALIST Work Phone: Start: 03-17-2015 Colonoscopy Loreto Louis elise RETIREMENT SPECIALIST Work Phone: Plan of Treatment Date Care [...] [facility] [address] [place] [address] Marlon Contreras, RETIREMENT SPECIALIST [address] [place] [address] [facility] Start: 07-16-2024 Pneumococcal Vaccine [...] [facility] [address] [place] [address] Marcos Scott DPM [address] [facility] [address] [place] [address] Verruca plantaris (Primary Dx); Foot pain, right [facility] Comment on above: Verruca plantaris (P rimary Dx); Foot pain, right Start: 03-21-2024 Influenza vaccination Influenza Vacc ine (#1) [facility] Start: 01-18-2024 Influenza vaccination Influenza Vacc ine (#1) [facility] Comment on above: Postponed from 03/21 (Patient Refused) Start: 09-15-2023 End: 09-15-2023 Patient encounter procedure 09/15/2023 1:15 PM EST Office Visit [facility] [address] [facility] [address] [place] [id number] Loreto Ojeda NP [address] [facility] [address] [place] [address] [facility] Start: 07-04-2023 Medicare Annual Well ness (AWV) Medicare Annual Wellness (AWV) [facility] Start: 09-28-2021 Screening for malign ant neoplasm of colon FIT-DNA [facility] Start: 1950 Screening for malign ant neoplasm of colon [facility] Immunizations Immunization Date Immunization Notes Care Provider Fa [facility] 07-11-2022 Influenza, High-dose Seasonal, Quadrivalent, Preservative Free Loreto Ojeda RETIREMENT SPECIALIST Work Phone: [facility] 07-11-2022 influenza virus vacc ine, unspecified formulation Loreto Ojeda RETIREMENT SPECIALIST Work Phone: [facility] 07-17-2021 Influenza, High-dose Seasonal, Quadrivalent, Preservative Free Loreto Ojeda RETIREMENT SPECIALIST Work Phone: [facility] 07-17-2021 Pfizer Purple Cap SARS-CoV-2 Vaccination Loreto Ojeda RETIREMENT SPECIALIST Work Phone: [facility] 04-20-2020 influenza, high dose seasonal, preservative-free Loreto Ojeda RETIREMENT SPECIALIST Work Phone: [facility] 07-30-2017 influenza, injectabl e, quadrivalent, contains preservative Loreto Ojeda RETIREMENT SPECIALIST Work Phone: [facility] 07-30-2017 pneumococcal polysaccharide vaccine, 23 valent Loreto Ojeda RETIREMENT SPECIALIST Work Phone: [facility] Payers Date Payer Category Payer Unknown [id number] 2022 Unknown [id number] 2020 Unknown [id number] 2017 Medicare [id number] 1959 Medicare [id number] 1959 Private Health Insurance [id number] 1952 Unknown [id number] 2.16.84 0.1.545227.3.579.2.593 1952 Unknown [id number] 2.16.84 0.1.089805.3.579.2.593 1952 Unknown [id number] 2.16. 840.1.987909.3.579.2.196 1952 Unknown [id number] 2.16. 840.1.286069.3.579.2.196 1952 Unknown [id number] 2.16. 840.1.400115.3.579.2.196 1952 Unknown [id number] 2.16.8 40.1.500934.3.579.2.1286 1952 Unknown [id number] 2.16.8 40.1.144085.3.579.2.1286 1952 Unknown [id number] 2.16.8 40.1.829720.3.579.2.1286 1952 Unknown [id number] 2.16.8 40.1.924118.3.579.2.128 1952 Unknown [id number] 2.16.8 40.1.201545.3.579.2.1285 1952 Unknown [id number] 2.16.8 40.1.698517.3.579.2.1285 1952 Unknown [id number] 2.16.8 40.1.269142.3.579.2.1285 1952 Unknown [id number] 2.16.84 0.1.650298.3.579.2.1258 1952 Unknown [id number] 2.16.84 0.1.887849.3.579.2.1258 1952 Unknown [id number] 2.16.84 0.1.946150.3.579.2.1258 1952 Unknown [id number] 2.16.84 0.1.069656.3.579.2.1258 1952 Unknown [id number] 2.16.84 0.1.538038.3.579.2.1258 1952 Unknown [id number] 2.16.84 0.1.790189.3.579.2.1258 1952 Unknown [id number] 2.16.84 0.1.918764.3.579.2.9 1952 Unknown [id number] 2.16.84 0.1.227704.3.579.2.1258 1952 Unknown [id number] 2.16.84 0.1.482071.3.579.2.1258 1952 Unknown [id number] 2.16.84 0.1.485829.3.579.2.1258 1952 Unknown [id number] 2.16.84 0.1.287923.3.579.2.1258 1952 Unknown [id number] 2.16.84 0.1.112611.3.579.2.1258 1952 Unknown [id number] 2.16.84 0.1.497902.3.579.2.1259 1952 Unknown [id number] 2.16.84 0.1.645161.3.579.2.1258 1952 Unknown [id number] 2.16.84 0.1.477062.3.579.2.9 1952 Unknown [id number] 2.16.84 0.1.982680.3.579.2.1258 1952 Unknown [id number] 2.16.84 0.1.785575.3.579.2.1258 1952 Unknown [id number] 2.16.84 0.1.776783.3.579.2.1258 1952 Unknown [id number] 2.16.84 0.1.874436.3.579.2.1258 1952 Unknown [id number] 2.16.84 0.1.699418.3.579.2.1258 1952 Unknown [id number] 2.16.84 0.1.939208.3.579.2.1258 1952 Unknown [id number] 2.16.84 0.1.301743.3.579.2.1258 1952 Unknown [id number] 2.16.84 0.1.904290.3.579.2.9 1952 Unknown [id number] 2.16.84 0.1.216112.3.579.2.1258 1952 Unknown [id number] 2.16.84 0.1.621386.3.579.2.1258 1952 Unknown [id number] 2.16.84 0.1.319675.3.579.2.1258 1952 Unknown [id number] 2.16.84 0.1.980303.3.579.2.9 1952 Unknown [id number] 2.16.84 0.1.120377.3.579.2.1258 1952 Unknown [id number] 2.16.84 0.1.312632.3.579.2.1259 1952 Unknown [id number] 2.16.84 0.1.497267.3.579.2.1259 1952 Unknown [id number] 2.16.840 .1.025504.3.579.2.1259 1952 Unknown [id number] 2.16.840 .1.034542.3.579.2.1259 Self-pay Self Pay [id number] Social History Date Type Detail Facility Tobacco smoking stat [facility] Unknown if ever smoked [facility] Start: 1950 Sex Assigned At Male F [facility] Start: 08-04-2023 End: 01-08-2024 Tobacco smoking status [facility] Ex-smoker [facility] End: 07-21-2003 History of tobacco use Current smoker [facility] End: 07-21-2003 History of tobacco use Cigarette Smoker [facility] Start: 08-04-2023 End: 01-08-2024 Tobacco use and exposure Smokeless tobacco non-user [facility] Start: 08-04-2023 End: 04-22-2024 Alcohol intake Current drinker of alcohol (finding) [facility] Start: 08-04-2023 End: 10-22-2023 History of Social function [facility] Start: 08-04-2023 End: 10-22-2023 Tobacco use panel [facility] Start: 07-03-2023 Alcohol Comment caffeine [...] by mouth Daily 90 tablet 3 HYDROcodone-acetaminophen (Summit) 5-325 MG tablet tamsulosin (Flomax) 0.4 MG [...] Daily, Disp: 90 tablet, Rfl: 3 HYDROcodone-acetaminophen (Summit) 5-325 MG tablet, , Disp: , Rfl: [...] Insecurity: No Food Insecurity (02/04/2024) Received from [facility] Hunger Screening Within the past 12 months we worried whether our food would run out before we got money to buy more.: Never True Within the past 12 months the food we bought just didn't last and we didn't have money to get more.: Never True Transportation Needs: No Transportation Needs (02/04/2024) Received from [facility] PRAPARE - Transportation Lack of Transportation (Medical): No Lack of Transportation (Non-Medical): No Physical Activity: Not on file Stress: Not on file Social Connections: Not on file Intimate Partner Violence: Not on file Housing Stability: Low Risk (02/04/2024) Received from [facility] Housing Instability Are you worried or concerned [...] in a long posterior splint and prescribed Summit. Presents in LAC. Removed today. Denies pain. [...] with bruce therapy, documented in this encounter [facility] Evaluation note Note Date & Type Note Facility Evaluation note Diagnosis Right elbow pain- Primary Pain in joint, upper arm Contusion of right elbow, subsequent encounter Sprain of right elbow, subsequent encounter documented in this encounter [facility] Evaluation note Note Date & Type Note Facility Evaluation note Diagnosis Verruca plantaris- Primary Plantar wart Foot pain, right Pain in soft tissues of limb documented in this encounter [facility] Healthcare Evaluation note Note Date & Type Note Facility Evaluation note Diagnosis Primary osteoarthritis of right knee Status post right knee replacement documented in this encounter [facility] Healthcare Summary Purpose Family History No [...] and content) DATE CREATED AUTHOR 05/03/2020 [facility] DATE CREATED AUTHOR AUTHOR'S ORGANIZ ATION 10/07/2023 [facility] DATE CREATED AUTHOR AUTHOR'S ORGANIZ ATION 02/07/2024 [facility] DATE CREATED AUTHOR AUTHOR'S ORGANIZ ATION 04/29/2024 [facility] Care Teams (unrecognized sec tion and content) Cleater Relationship Specialty Start Date End Date Mary Lee RETIREMENT SPECIALIST [address] [place] [address] PCP - ACO Reach 12/12/22 Cleater Relationship Specialty Start Date End Date Mary Lee RETIREMENT SPECIALIST [address] [place] [address] PCP - ACO Reach 12/12/22 Cleater Relationship Specialty Start Date End Date Avila Aquino MD [address] [place] [address] PCP - General Family Medicine 09/15/23 Mary Lee RETIREMENT SPECIALIST [address] [place] [address] PCP - ACO Reach 11/19/23 Cleater Relationship Specialty Start Date End Date Avila Aquino MD [address] [place] [address] PCP - General Family Medicine 09/15/23 Mary Lee RETIREMENT SPECIALIST [address] [place] [address] PCP - ACO Reach 11/19/23 Cleater Relationship Specialty Start Date End Date Avila Aquino MD [address] [place] [address] PCP - General Family Medicine 09/15/23 Mary Lee NP [address] [facility] [place] [address] PCP - ACO Reach 11/19/23 Cleater Relationship Specialty Start Date End Date Avila Aquino MD [address] [facility] [address] [place] [address] PCP - General Family Medicine 09/15/23 Mary Lee NP [address] [facility] [address] PCP - ACO Reach 11/19/23 Reason for [...] BE BASED ON THE PRIMARY CLINICAL RECORDS. [facility]. provides no warranty or guarantee of the accuracy or completeness of information in this document.
--- NOTE | 2024-05-26 13:20 | P.CN_ITS ---
Consult Note: HPI Data of Consult Patient: known to practice within the last 3 years Requesting Physician: Tara Lozada NP Primary Care Provider: ZAYRA AQUINO Consult Narrative Reason for consult: f/u Narrative: Michael Vaughn a pleasant 74 year old male presents for evaluation and management of chronic neck pain. Longstanding hx of chronic neck pain secondary to cervical spondylosis unresponsive to greater than 6 weeks of provider guided HEP, tylenol, tizanidine, marijuana/THC, and topical creams. Pt rates pain 2/10 stiffness in left neck increasing to 8/10 with lifting, twisting, ROM, and by end of day. Pain increased with sitting. Recently underwent left C4-5 C5-6 MBB #1 with 100% improvement in pain and functional ability immediately following and 12 hours after the injection, preop pain 4/10 post op pain 0/10. cc:: CC: Tara Lozada NP Review of Systems ROS Status of ROS 10 or more systems reviewed and unremark able except as noted in history and below Musculoskeletal Reports: neck pain PFSH PFSH Medical History (Updated 09/18/23 @ 09:21 by Cesia Ruvalcaba) Anxiety ?F41.9 - Anxiety disorder, unspecified (ICD-10) Smoker ?F17.200 - Nicotine dependence, unspecified, uncomplicated (ICD-10) Lymphadenitis ?I88.9 - Nonspecific lymphadenitis, unspecified (ICD-10) Sleep apnea ?G47.30 - Sleep apnea, unspecified (ICD-10) Depression ?F32.A - Depression, unspecified (ICD-10) CVA (cerebral vascular accident) ?I63.9 - Cerebral infarction, unspecified (ICD-10) Ulcer Hypertension ?I10 - Essential (primary) hypertension (ICD-10) Surgical History H/O knee surgery ?Z98.890 - Other specified postprocedural states (ICD-10) S/P hernia repair ?Z98.890 - Other specified postprocedural states (ICD-10) ?Z87.19 - Personal history of other diseases of the digestive system (ICD-10) H/O carpal tunnel repair ?Z98.890 - Other specified postprocedural states (ICD-10) Meds Home Medications and Allergies Home Medications ?Medication ?Instructions ?Recorded ?Confirmed ?Type buspirone 15 mg tablet 15 mg PO BID 07/31/23 09/29/23 History carvedilol 6.25 mg tablet 6.25 mg PO BID 07/31/23 09/29/23 History hydrochlorothiazide 25 mg tablet 25 mg PO DAILY 07/31/23 09/29/23 History hydrocodone 5 mg-acetaminophen 325 1 tab PO Q6H PRN pain #12 tabs 07/31/23 09/29/23 Rx mg tablet tizanidine 4 mg tablet 4 mg PO BID PRN muscle spasticity 07/31/23 09/29/23 History venlafaxine 37.5 mg 37.5 mg PO DAILY 07/31/23 09/29/23 History capsule,extended release 24 hr (Effexor XR) tizanidine 4 mg capsule 4 mg PO BID PRN muscle spasticity 09/03/23 09/29/23 Rx #60 caps naloxone 4 mg/actuation nasal 4 mg intranasal Q3M PRN opioid 09/17/23 09/29/23 Rx spray (Narcan) overdose #1 ea Allergies Allergy/AdvReac Type Severity Reaction Status Date / Time No Known Drug Allergies Allergy Verified 09/29/23 08:53 Exam Constitutional Documenting provider has reviewed patient's vital signs: yes Common normals: no apparent distress, oriented x3, healthy appearing, alert and well nourished General appearance: cooperative HENMT Common normals: normocephalic, hearing grossly normal bilaterally and moist oral mucous membranes Head and scalp: normocephalic Eye Common normals: PERRL Pupil: PERRL Neck & C-Spine Common normals: full ROM General: normal visual inspection Cervical spine: cervical ROM abnormal, pain with cervical ROM and cervical spine tenderness; no paracervical muscle tenderness and no paracervical muscle spasm Other: left positive facet loading pain over C4-6 facet joints negative radiculopathy strength 5/5 in BUE Chest Common normals: inspection of chest normal Respiratory Common normals: normal respiratory effort, no retractions and no use of accessory muscles Neuro Common normals: oriented x3, CN's II-XII intact bilaterally, moves all extremities, no focal motor deficits, no sensory deficits noted and deep tendon reflexes 2+ bilaterally Sensorium/orientation: alert Motor exam: strength 5/5 throughout and no movement abnormalities noted Psych Common normals: mental status grossly normal, thought process normal, cooperative, affect normal, speech normal and activity/motor behavior normal Speech: normal speech Thought process: normal thought process Results Additional Findings Additional findings: If on a controlled substance or opioids, I have checked an [place] report on this patient and there are no aberrancies noted in the prescribing history.??If on a controlled substance or opioid a drug screen was completed and reviewed within the last year, and if there has not been a drug screen completed we ordered one today to monitor higher risk, state monitored pain medication use. As part of providing excellent, safe, comprehensive care, the following was completed at our patient's visit: 1. A medication reconciliation and review to ensure accurate knowledge of current/active medications, including asking our patients to inform us about any [id number]-dbh-[id number] medications or herbal remedies/nutritional supplements/alternative remedies. 2. A review to specifically ensure our patients have had annual screening for screening for depression, screening for tobacco use, and screening for unhealthy alcohol use. For concerning screenings had a discussion with the patient, provided patient education, and recommended follow-up with primary care provider when appropriate. If patient noted with a risk of falling, they received education on strength, gait, and balance training to prevent future risk of falling. Assessment and Plan Assessment and Plan (1) Cervical spondylosis: (2) Myofascial pain: Plan proceed with left C4-5 C5-6 MBB #2 under fluoroscopy working towards RFA start mobic 7.5mg BID, risks vs benefits reviewed to be taken with food. goal to wean to PRN. continue NNCP due to THC use continue HEP as tolerated f/u after each injection
== END 2024-05-26 12:51 | disposition home or self-care (01) ==
LOC: PM 12:51
PROVIDERS: PCP Family Medicine; Visit Provider Nurse Practitioner
DX: M47.812 Spondylosis without myelopathy or radiculopathy, cervical region (principal); M79.18 Myalgia, other site
CPT/HCPCS: G0463

== ENCOUNTER 2024-06-07 07:37 | Day surgery (SDC) | payer MEDICARE, OTHER, SELFPAY ==
--- OUTSIDE RECORDS SUMMARY | 2024-06-07 07:45 | XMS_ITS | CCD ---
Author Organization [facility] Care Team Providers Care Oncology Social Worker Name Role Phone KENIA, RUGEN Admitting Unavailable KENIA, RUGEN Attending Unavailable MISC, DOCTOR Primary Care Unavailable KENIA, RUGEN Consulting Unavailable RENZO LEERI Admitting Unavailable MARY LEE Attending Unavailable KENIA, RUGEN Primary Care Unavailable MARY LEE Consulting Unavailable Leonardo Hernnadezkat Attending Provider Mary Lee Primary Care Provider [phone] Jesus SLATE HANDLER, Mary Temple Unavailable EDMUNDO DENNEY Referring Unavailable RENZO LEERI Maverick Primary Care Unavailable EDMUNDO DENNEY Attending Unavailable EDMUNDO DENNEY Referring Unavailable MARY LEE Primary Care Unavailable EDMUNDO DENNEY Referring Unavailable MARY LEE Primary Care Unavailable SHANEEDMUNDO REYNA Referring Unavailable MARY LEE Primary Care Unavailable EDMUNDO DENNEY Admitting Unavailable EDMUNDO DENNEY Attending Unavailable MARY LEE Primary Care Unavailable TERESE RODRIGUEZ Attending Unavailable RENZO LEERI M Primary Care Unavailable JESUSRENZORI M Attending Unavailable APLING, LORETO B Attending Unavailable APLING, LORETO B Attending Unavailable APLING, LORETO B Referring Unavailable JESUSRENZORI M Attending Unavailable APLING, LORETO B Attending Unavailable APLING, LORETO B Attending Unavailable MARY LEE M Attending Unavailable EDMUNDO DENNEY Attending Unavailable EDMUNDO DENNEY Referring Unavailable LEWIS SOLO Attending Unavailable EDMUNDO DENNEY Referring Unavailable EDMUNDO DENNEY Attending Unavailable MARY LEE Attending Unavailable EDMUNDO DENNEY Attending Unavailable LUIS EDUARDO MAS Attending Unavailable EDMUNDO DENNEY Referring Unavailable MARICRUZ WADSWORTH Attending Unavailable EDMUNDO DENNEY Referring Unavailable BUCK CEE Attending Unavailable BENNINGTON, EDMUNDO Lackey Referring Unavailable ERNESTO TAI Attending Unavailable BENNINGTON, EDMUNDO Lackey Referring Unavailable ABIDA, ERNESTO Attending Unavailable SHANE, EDMUNDO Lackey Referring Unavailable BUCK CEE Attending Unavailable BENNINGTON, EDMUNDO Lackey Referring Unavailable ERNESTO TAI Attending Unavailable SHANE, EDMUNDO Lackey Referring Unavailable BUCK CEE Attending Unavailable SHANE, EDMUNDO Lackey Referring Unavailable ERNESTO TAI Attending Unavailable BENNINGTON, EDMUNDO Lackey Referring Unavailable LUIS EDUARDO MAS Attending Unavailable BENNINGTON, EDMUNDO Lackey Referring Unavailable BENNINGTON, EDMUNDO Lackey Attending Unavailable BENNINGTON, EDMUNDO Lackey Referring Unavailable DIONISIO, MARCOS Lackey Attending Unavailable DIONISIO, MARCOS Lackey Attending Unavailable DIONISIO, MARCOS Lackey Attending Unavailable JESUS, MARY Temple Attending Unavailable SHANE, EDMUNDO Lackey Attending Unavailable Avila Aquino MD Primary Care Provider [phone] Jesus SLATE HANDLER, Mary Temple Unavailable [phone] Luc CATHERINE, Bogdan Snyder Attending Unavailable Luc CATHERINE, Andrius Snyder Attending Unavailable Luc CATHERINE, Andrius Visabell Attending Unavailable Luc CATHERINE, Andrius Visabell Attending Unavailable Unavailable Unavailable Unavailable Medications Current Medications Medication Drug Class(es) Dates Sig (Normalized) Sig (Original) acetaminophen 325 mg / HYDROcodone bitartrate 5 mg oral tablet (9 sources) Opioid Agonist HYDROcodone-acet a minophen ([place]) 5-325 MG tablet Active ALPRAZolam 0.25 mg [...] Start: 07-28-2023 take 1 capsule by mo [facility] once daily in the morning hydroCHLOROthiazide [...] Start: 04-14-2023 take 1 capsule by mo [facility] once daily tamsulosin (Flomax) 0.4 MG 24 [...] 07-22-2023 take 1 tablet by jorge a th every six hours as needed for muscle [...] tonsils with hypertrophy of adenoids] Onset: 02-18-2023 3 Chronic Adjustment disorders (18 sources) Adjustment disorder [...] tissue/intra-articula r swelling and emphysema Finalized by Nilsno Paniagua MD on 02/04/2024 10:41 AM Normal [facility] BASIC METABOLIC PANLon 01-07 Anion gap [Moles/Vol] 9 mmol/L Normal 5-15 [facility] Comment on above: Performed By: #### C BCA, BMP #### [facility] ([id number]) [address], [address] [place] [address] Calcium [Mass/Vol] 9.0 mg/dL Normal 8.5-10.5 [facility] Comment on above: Performed By: #### C BCA, BMP #### [facility] ([id number]) [address], [address] [place] [address] Chloride [Moles/Vol] 91 mmol/L Low 98-109 [facility] Comment on above: Performed By: #### C BCA, BMP #### [facility] ([id number]) [address], [address] [place] [address] CO2 [Moles/Vol] 29 mmol/L Normal 22-32 [facility] Comment on above: Performed By: #### C BCA, BMP #### [facility] ([id number]) [address], [address] [place] [address] Creatinine [Mass/Vol] 0.70 mg/dL Normal 0.60-1.30 [facility] Comment on above: Result Comment: METH OD TRACEABLE TO IDMS STANDARD Performed By: #### C LÁZARO, BMP #### [facility] ([id number]) [address], [address] [place] [address] eGFR (CKD-EPI) NON-RACE DEPENDENT >90 Normal >59 [facility] Comment on above: Result Comment: Reported eGFR is based on the CKD-EPI 2020 equation that does not use a race coefficient. Performed By: #### C BCA, BMP #### [facility] ([id number]) [address], [address] [place] [address] Glucose [Mass/Vol] 84 mg/dL Normal 65-99 [facility] Comment on above: Performed By: #### C BCA, BMP #### [facility] ([id number]) [address], [address] [place] [address] Potassium [Moles/Vol] 3.9 mmol/L Normal 3.5-5.0 [facility] Comment on above: Performed By: #### C LÁZARO, BMP #### [facility] ([id number]) [address] [address] [place] [address] Sodium [Moles/Vol] 129 mmol/L Low 134-146 [facility] Comment on above: Performed By: #### C BCA, BMP #### [facility] ([id number]) [address] [address] [place] [address] Urea nitrogen [Mass/Vol] 10 mg/dL Normal 5-27 [facility] Comment on above: Performed By: #### C LÁZARO, BMP #### [facility] ([id number]) [address] [address] [place] [address] CBC AND AUTO DIFFon 01-07- 24 ABSOLUTE BASOPHIL 0.1 X10E9/L Normal 0.0-0.2 [facility] Comment on above: Performed By: #### C BCA, BMP #### [facility] ([id number]) [address] [address] [place] [address] ABSOLUTE NEUTROPHIL 3.2 X10E9/L Normal 1.5-6.6 [facility] Comment on above: Performed By: #### C BCA, BMP #### [facility] ([id number]) [address] [address] [place] [address] Basophils/100 WBC (Bld) 1.0 % Normal [facility] Comment on above: Performed By: #### C BCA, BMP #### [facility] ([id number]) [address] [address] [place] [address] Eosinophils (Bld) [#/Vol] 0.2 10*3/uL Normal 0.0-0.4 [facility] Comment on above: Performed By: #### C BCA, BMP #### [facility] ([id number]) [address], [address] [place] [address] Eosinophils/100 WBC (Bld) 4.1 % Normal [facility] Comment on above: Performed By: #### C LÁZARO, BMP #### [facility] ([id number]) [address], [address] [place] [address] Erythrocyte distribution width (RBC) [Ratio] 14.5 % Normal 11.5-15.0 [facility] Comment on above: Performed By: #### C LÁZARO, BMP #### [facility] ([id number]) [address], [address] [place] [address] Hematocrit (Bld) [Volume fraction] 43.0 % Normal 39-49 [facility] Comment on above: Performed By: #### C LÁZARO, BMP #### [facility] ([id number]) [address] [address] [place] [address] Hemoglobin (Bld) [Mass/Vol] 14.9 g/dL Normal 13.0-17.0 [facility] Comment on above: Performed By: #### C LÁZARO, BMP #### [facility] ([id number]) [address], [address] [place] [address] Lymphocytes (Bld) [#/Vol] 1.5 10*3/uL Normal 1.0-3.5 [facility] Comment on above: Performed By: #### Bill SESAY, BMP #### [facility] ([id number]) [address], [address] [place] [address] Lymphocytes/100 WBC (Bld) 26.2 % Normal [facility] Comment on above: Performed By: #### C LÁZARO, BMP #### [facility] ([id number]) [address], [address] [place] [address] MCH (RBC) [Entitic mass] 33.8 pg Normal 27-34 [facility] Comment on above: Performed By: #### C LÁZARO, BMP #### [facility] ([id number]) [address], [address] [place] [address] MCHC (RBC) [Mass/Vol] 34.5 g/dL Normal 32-36 [facility] Comment on above: Performed By: #### C LÁZARO, BMP #### [facility] ([id number]) [address], [address] [place] [address] MCV (RBC) [Entitic vol] 98 fL Normal 80-100 [facility] Comment on above: Performed By: #### C LÁZARO, BMP #### [facility] ([id number]) [address], [address] [place] [address] Monocytes (Bld) [#/Vol] 0.8 10*3/uL Normal 0-0.9 [facility] Comment on above: Performed By: #### C LÁZARO, BMP #### [facility] ([id number]) [address], [address] [place] [address] Monocytes/100 WBC (Bld) 14.1 % Normal [facility] Comment on above: Performed By: #### C LÁZARO, BMP #### [facility] ([id number]) [address], [address] [place] [address] Neutrophils/100 WBC (Bld) 54.6 % Normal [facility] Comment on above: Performed By: #### Bill SESAY, BMP #### [facility] ([id number]) [address], [address] [place] [address] Platelet mean volume (Bld) [Entitic vol] 8.0 fL Normal 7-12 [facility] Comment on above: Performed By: #### C LÁZARO, BMP #### [facility] ([id number]) [address], [address] [place] [address] Platelets (Bld) [#/Vol] 268 10*3/uL Normal 150-450 [facility] Comment on above: Performed By: #### C BCA, BMP #### [facility] ([id number]) [address], [address] [place] [address] RBC COUNT 4.39 X10E12/L Normal 4.10-5.70 [facility] Comment on above: Performed By: #### C BCA, BMP #### [facility] ([id number]) [address], [address] [place] [address] WBC (Bld) [#/Vol] 5.8 10*3/uL Normal 4.0-11.0 [facility] Comment on above: Performed By: #### C BCA, BMP #### [facility] ([id number]) [address], [address] [place] [address] XR Elbow - right 2 Viewson 0 09-01-2023 Imaging Result: September 01, 2023 x-rays AP and lateral of the right elbow demonstrate calcification at the proximal portion of the olecranon with osteophyte formation around the elbow consistent with arthritis. No fractures are noted. Impression: Osteoarthritis of the right elbow Ever Denney D.O. [facility] Radiology Study observation (narrative) [facility] XR Elbow - right 2 ViewsOrde red By: Edmundo Denney on 09-01-2023 [facility] [employer] Work Phone: CREATININEon 04-26-2020 Creatinine [Mass/Vol] 0.87 mg/dL Normal 0.66-1.25 [facility] Comment on above: Performed By: #### C FRANSISCO #### [facility] [address] [place], [place] [address] Courtney Shanon Creatinine [Mass/Vol] mg/dL Normal >=60 [facility] Comment on above: Performed By: #### C FRANSISCO #### [facility] [address] [place], [place] [address] Courtneygwendolyn Claudio COVID-19 PCRon 02-26-2020 SARS-CoV-2, RONEL Not Detected Normal Not Detected The [facility] Comment on above: Result Comment: This test was developed and its performance characteristics determined by [employer]. This test has not been FDA cleared [...] assay. Performed By: #### C VDPCR #### [facility] [address] [place] [address] Courtney Claudio Vital Signs Date Time Vital Sign Value Performing Clinician Faci lity 04-22-2024 13:52-0400 Body height 170.2 cm Marcos Nichole DPM Work Phone: [facility] 04-22-2024 13:52-0400 Body mass index (BMI) [Ratio] 28.98 kg/m2 Marcos Nichole DPM Work Phone: [facility] 04-22-2024 13:52-0400 Body weight 83.92 kg Marcos Nichole DPM Work Phone: [facility] 04-22-2024 13:52-0400 Diastolic blood pressure 79 mm[Hg] Marcos Nichole DPM Work Phone: [facility] 04-22-2024 13:52-0400 Heart rate 76 /min Marcos Nichole DPM Work Phone: [facility] 04-22-2024 13:52-0400 Respiratory rate 17 /min Marcos Nichole DPM Work Phone: [facility] 04-22-2024 13:52-0400 Systolic blood pressure 125 mm[Hg] Marcos Nichole DPM Work Phone: [facility] Encounters Encounter Date Encounter Type Care Provider Facility Start: 05-24-2024 End: 05-24-2024 ambulatory Bogdan Calle MD Facility:[facility] Start: 04-27-2024 End: 04-27-2024 Bamboo flowsheet Edmundo Denney DO Work Phone: [facility] Start: 04-27-2024 End: 04-27-2024 Bamboo flowsheet Edmundo Denney DO Work Phone: [facility] Start: 04-27-2024 End: 04-27-2024 Postop follow up visit related to original px Edmundo Denney DO Work Phone: [facility] Comment on above: Primary osteoarthrit is of right knee; Status post right knee replacement Start: 04-27-2024 End: 04-27-2024 ambulatory EDMUNDO DENNEY Not Available Start: 04-22-2024 End: 04-22-2024 Bamboo flowsheet Marcos Nichole DPM Work Phone: [facility] Start: 04-22-2024 End: 04-22-2024 Bamboo flowsheet Marcos Nichole DPM Work Phone: [facility] Start: 04-22-2024 End: 04-22-2024 Office outpatient visit 15 minutes Marcos Nichole DPM Work Phone: [facility] Comment on above: Verruca plantaris (P rimary Dx); Foot pain, right Start: 04-22-2024 End: 04-22-2024 ambulatory MARCOS NICHOLE Not Available Start: 04-08-2024 End: 04-08-2024 ambulatory MARCOS NICHOLE Not Available Start: 03-25-2024 End: 03-25-2024 ambulatory MARCOS NICHOLE Not Available Start: 03-16-2024 End: 03-16-2024 ambulatory EDMUNDO DENNEY Not Available Start: 03-15-2024 End: 03-15-2024 ambulatory LUIS EDUARDO Ean MAS Not Available Start: 03-12-2024 End: 03-12-2024 ambulatory ERNESTO TAI Not Available Start: 03-10-2024 End: 03-10-2024 ambulatory BUCK DEVRIESY Not Available Start: 03-08-2024 End: 03-08-2024 ambulatory ERNESTO BRINK Not Available Start: 03-05-2024 End: 03-05-2024 ambulatory BUCK JAMILBLEY Not Available Start: 03-01-2024 End: 03-01-2024 ambulatory ERNESTO BRTENZIN Not Available Start: 02-27-2024 End: 03-01-2024 ambulatory ERNESTO TAI Not Available Start: 02-25-2024 End: 02-25-2024 ambulatory BUCK CEE Not Available Start: 02-23-2024 End: 02-23-2024 ambulatory MARICRUZ GRIDERCARLEY Not Available Start: 02-18-2024 End: 02-18-2024 ambulatory LUIS EDUARDOCAROLYNE MAS Not Available Start: 02-17-2024 End: 02-17-2024 ambulatory EDMUNDO DENNEY Not Available Start: 02-06-2024 End: 02-06-2024 Evaluation and management of inpatient TERESE D [facility] Start: 02-04-2024 End: 02-05-2024 ambulatory [facility] Start: 01-27-2024 End: 01-27-2024 ambulatory [facility] Start: 01-13-2024 End: 01-13-2024 ambulatory MARY LEE Not Available Start: 01-08-2024 End: 01-08-2024 ambulatory [facility] Start: 01-08-2024 Encounter for other preprocedural examination [facility] Start: 01-08-2024 End: 01-08-2024 ambulatory EDMUNDO DENNEY Not Available Start: 11-25-2023 End: 11-25-2023 ambulatory LEWIS SOLO Not Available Start: 11-18-2023 End: 11-18-2023 ambulatory EDMUNDO DENNEY Not Available Start: 10-22-2023 End: 10-22-2023 ambulatory MARY LEE Not Available Start: 10-13-2023 End: 10-13-2023 ambulatory LORETO Strickland APLING Not Available Start: 09-29-2023 End: 09-29-2023 ambulatory Bogdan Calle MD Facility: [facility] Start: 09-15-2023 End: 09-15-2023 ambulatory LORETO Em CERVANTESING Not Available Start: 09-10-2023 End: 09-10-2023 ambulatory MARY LEE Not Available Start: 09-08-2023 End: 09-08-2023 ambulatory Bogdan Calle MD Facility: [facility] Start: 09-01-2023 Bamboo flowsheet Loreto Cervantesin g SLATE HANDLER Work Phone: [facility] Start: 09-01-2023 Bamboo flowsheet Loreto Cervantesin g SLATE HANDLER Work Phone: [facility] Start: 09-01-2023 End: 09-01-2023 ambulatory LORETO Strickland APLING Not Available Start: 09-01-2023 End: 09-01-2023 Office outpatient visit 15 minutes Loreto Strickland Helening SLATE HANDLER Work Phone: [facility] Comment on above: Right elbow pain (Pr imary Dx); Contusion of right elbow, subsequent encounter; Sprain of right elbow, subsequent encounter Start: 08-18-2023 End: 08-18-2023 ambulatory Bogdan Calle MD Facility: [facility] Start: 08-04-2023 End: 08-04-2023 ambulatory LORETO B APLING Not Available Start: 07-16-2023 End: 07-16-2023 ambulatory MARY LEE Not Available Start: 07-03-2023 End: 07-03-2023 ambulatory MARY LEE Not Available Start: 09-13-2020 End: 09-13-2020 Discharged [facility]ring [facility] [employer] Start: 05-02-2020 Encounter for preprocedural laboratory examination AVILA AQUINO [facility] Start: 04-26-2020 End: 04-27-2020 Patient encounter procedure MARY LEE Facility:[facility] Start: 02-25-2020 End: 02-26-2020 Patient encounter procedure AVILA AQUINO Facility:[facility] Encounter for preprocedural laboratory examination AVILA AQUINO [facility] Procedures Date Procedure Procedure Detail Performing Clinician Start: 09-01-2023 Radex elbow 2 views Mar ia B Rusty [employer]ATE HAND[employer]ER Work Phone: Start: 03-17-2015 Colonoscopy Loreto Louis elise [employer]ATE HANDLER Work Phone: Plan of Treatment Date Care Activity Detail Author Start: 11-03-2026 Screening for malign ant neoplasm of colon [facility] Start: 03-17-2025 Screening for malign ant neoplasm of colon [facility] Start: 10-21-2024 Medicare Annual Well ness (AWV) Medicare Annual Wellness (AWV) [facility] Start: 07-27-2024 End: 07-27-2024 Patient encounter procedure 07/27/2024 1:00 PM EST Office Visit [facility] [address] [place] [id number] Marlon Contreras, SLATE HANDLER [address] [place] [address] [facility] Start: 07-16-2024 Pneumococcal Vaccine : 65+ Years (2 - PCV) Pneumococcal Vaccine: 65+ Years (2 - PCV) [facility] Comment on above: Postponed from 07/30 [...] procedure 04/22/2024 1:40 PM EDT Office Visit [facility] [address] [facility] [address] [place] [address] Marcos Nichole DPM [address] [facility] [address] [place] [address] Verruca plantaris (Primary Dx); Foot pain, right [facility] Comment on above: Verruca plantaris (P rimary Dx); Foot pain, right Start: 03-21-2024 Influenza vaccination Influenza Vacc ine (#1) [facility] Start: 01-18-2024 Influenza vaccination Influenza Vacc ine (#1) [facility] Comment on above: Postponed from 03/21 (Patient Refused) Start: 09-15-2023 End: 09-15-2023 Patient encounter procedure 09/15/2023 1:15 PM EST Office Visit [facility] [address] [facility] [address] [place] [phone] Loreto Ojeda NP [address] [facility] [address] [place] [address] [facility] Start: 07-04-2023 Medicare Annual Well ness (AWV) Medicare Annual Wellness (AWV) [facility] Start: 09-28-2021 Screening for malign ant neoplasm of colon FIT-DNA [facility] Start: 1952 Screening for malign ant neoplasm of colon [facility] Immunizations Immunization Date Immunization Notes Care Provider Fa cility 07-11-2022 Influenza, High-dose Seasonal, Quadrivalent, Preservative Free Loreto Ojeda NP Work Phone: [facility] 07-11-2022 influenza virus vacc ine, unspecified formulation Loreto Ojeda NP Work Phone: [facility] 07-17-2021 Influenza, High-dose Seasonal, Quadrivalent, Preservative Free Loreto Ojeda SLATE HANDLER Work Phone: [facility] 07-17-2021 Pfizer Purple Cap SARS-CoV-2 Vaccination Loreto Ojeda NP Work Phone: [facility] 04-20-2020 influenza, high dose seasonal, preservative-free Loreto Ojeda SLATE HANDLER Work Phone: [facility] 07-30-2017 influenza, injectabl e, quadrivalent, contains preservative Loreto Ojeda SLATE HANDLER Work Phone: [facility] 07-30-2017 pneumococcal polysaccharide vaccine, 23 valent Loreto Ojeda SLATE HANDLER Work Phone: [facility] Payers Date Payer Category Payer Unknown [id number] 2022 Unknown [id number] 2020 Unknown [id number] 2017 Medicare [id number] 1959 Medicare [id number] 1959 Private Health Insurance [id number] 1952 Unknown [id number] 2.16.84 0.1.848909.3.579.2.593 1952 Unknown [id number] 2.16.84 0.1.207877.3.579.2.593 1952 Unknown [id number] 2.16.8 40.1.317232.3.579.2.1285 1952 Unknown [id number] 2.16.8 40.1.310128.3.579.2.1286 1952 Unknown [id number] 2.16.8 40.1.573121.3.579.2.1286 1952 Unknown [id number] 2.16.8 40.1.871276.3.579.2.1286 1952 Unknown [id number] 2.16.8 40.1.604109.3.579.2.1286 1952 Unknown [id number] 2.16.8 40.1.901116.3.579.2.1286 1952 Unknown [id number] 2.16.8 40.1.373967.3.579.2.1286 1952 Unknown [id number] 2.16.84 0.1.832714.3.579.2.9 1952 Unknown [id number] 2.16.84 0.1.700990.3.579.2.1258 1952 Unknown [id number] 2.16.84 0.1.486622.3.579.2.1258 1952 Unknown [id number] 2.16.84 0.1.787768.3.579.2.1258 1952 Unknown [id number] 2.16.84 0.1.211249.3.579.2.1258 1952 Unknown [id number] 2.16.84 0.1.416911.3.579.2.1258 1952 Unknown [id number] 2.16.84 0.1.829919.3.579.2.1258 1952 Unknown [id number] 2.16.84 0.1.547084.3.579.2.1258 1952 Unknown [id number] 2.16.84 0.1.090737.3.579.2.1258 1952 Unknown [id number] 2.16.84 0.1.310066.3.579.2.1258 1952 Unknown [id number] 2.16.84 0.1.614009.3.579.2.1258 1952 Unknown [id number] 2.16.84 0.1.660015.3.579.2.1258 1952 Unknown [id number] 2.16.84 0.1.990699.3.579.2.1258 1952 Unknown [id number] 2.16.84 0.1.338021.3.579.2.1258 1952 Unknown [id number] 2.16.84 0.1.386958.3.579.2.1258 1952 Unknown [id number] 2.16.84 0.1.219759.3.579.2.1258 1952 Unknown [id number] 2.16.84 0.1.738729.3.579.2.1258 1952 Unknown [id number] 2.16.84 0.1.599769.3.579.2.1258 1952 Unknown [id number] 2.16.84 0.1.167235.3.579.2.1258 1952 Unknown [id number] 2.16.84 0.1.085343.3.579.2.1258 1952 Unknown [id number] 2.16.84 0.1.956118.3.579.2.1258 1952 Unknown [id number] 2.16.84 0.1.860186.3.579.2.1258 1952 Unknown [id number] 2.16.84 0.1.489183.3.579.2.1258 1952 Unknown [id number] 2.16.84 0.1.724263.3.579.2.9 1952 Unknown [id number] 2.16.84 0.1.165521.3.579.2.1258 1952 Unknown [id number] 2.16.84 0.1.076731.3.579.2.1258 1952 Unknown [id number] 2.16.84 0.1.566758.3.579.2.1258 1952 Unknown [id number] 2.16.84 [id number] 1950 Unknown [id number] 2.16.84 [id number] 1950 Unknown [id number] 2.16.84 [id number] 1952 Unknown [id number] 2.16.840 .[id number] 1952 Unknown [id number] 2.16.840 .1.001035.3.579.2.1259 1952 Unknown [id number] 2.16. [id number] 1952 Unknown [id number] 2.16. [id number] 1950 Unknown [id number] 2.16. [id number] 1950 Unknown [id number] 2.16. [id number] Self-pay Self Pay [id number] Social History Date Type Detail Facility Tobacco smoking stat [facility] Unknown if ever smoked [facility] Start: 1950 Sex Assigned At Male F [facility] Start: 08-04-2023 End: 01-08-2024 Tobacco smoking status [facility] Ex-smoker [facility] End: 07-21-2003 History of tobacco use Current smoker [facility] End: 07-21-2003 History of tobacco use Cigarette Smoker [facility] Start: 08-04-2023 End: 01-08-2024 Tobacco use and exposure Smokeless tobacco non-user [facility] Start: 08-04-2023 End: 04-22-2024 Alcohol intake Current drinker of alcohol (finding) [facility] Start: 08-04-2023 End: 10-22-2023 History of Social function [facility] Start: 08-04-2023 End: 10-22-2023 Tobacco use panel [facility] Start: 07-03-2023 [...] by mouth Daily 90 tablet 3 HYDROcodone-acetaminophen ([place]) 5-325 MG tablet tamsulosin (Flomax) 0.4 MG [...] Healthcare History of Present illness Narrative 04-22-2024 BOUBACAR MatiasM - 04/22/2024 1:40 PM EDT Note Date [...] Daily, Disp: 90 tablet, Rfl: 3 HYDROcodone-acetaminophen ([place]) 5-325 MG tablet, , Disp: , Rfl: [...] Received from [facility] Hunger Screening Within the past 12 months we worried whether our food would run out before we got money to buy more.: Never True Within the past 12 months the food we bought just didn't last and we didn't have money to get more.: Never True Transportation Needs: No Transportation Needs (02/04/2024) Received from [facility] PRAPARE - Transportation Lack of Transportation (Medical): No Lack of Transportation (Non-Medical): No Physical Activity: Not on file Stress: Not on file Social Connections: Not on file Intimate Partner Violence: Not on file Housing Stability: Low Risk (02/04/2024) Received from [facility] Housing Instability Are you worried or concerned [...] lesions and return to clinic p.r.n. Marcos Nichole DPM documented in this encounter [facility] [...] in a long posterior splint and prescribed [place]. Presents in LAC. Removed today. Denies pain. [...] encounter documented in this encounter [facility] Evaluation note Note Date & Type Note Facility Evaluation note Diagnosis Verruca plantaris- Primary Plantar wart Foot pain, right Pain in soft tissues of limb documented in this encounter [facility] Evaluation note Note Date & Type Note Facility Evaluation note Diagnosis Primary osteoarthritis of right knee Status post right knee replacement documented in this encounter [facility] Summary [...] and content) DATE CREATED AUTHOR [facility]03/2020 [facility] DATE CREATED AUTHOR AUTHOR'S ORGANIZ ATION 02/07/2024 [facility] DATE CREATED AUTHOR AUTHOR'S ORGANIZ ATION 04/29/2024 [facility] Specialists [facility] DATE CREATED AUTHOR AUTHOR'S ORGANIZ ATION 05/29/2024 [facility] Care Teams (unrecognized sec tion and content) Oncology Social Worker Relationship Specialty Start Date End Date Mary Lee SLATE HANDLER [address] [facility] [address] [place] [address] PCP - ACO Reach 12/12/22 Oncology Social Worker Relationship Specialty Start Date End Date Mary Lee SLATE HAND[employer]ER [address] [facility] [address] [place] [address] PCP - ACO Reach 12/12/22 Oncology Social Worker Relationship Specialty Start Date End Date Avila Aquino MD [address] [facility] [address] [place] [address] PCP - General Family Medicine 09/15/23 Mary Lee SLATE HAND[employer]ER [address] [facility] [address] [place] [address] PCP - ACO Reach 11/19/23 Oncology Social Worker Relationship Specialty Start Date End Date Avila Aquino MD [address] [facility] [address] [place] [address] PCP - General Family Medicine 09/15/23 Mary Lee NP [address] [place] [address] [place] [address] PCP - ACO Reach 11/19/23 Oncology Social Worker Relationship Specialty Start Date End Date Avila Aquino MD [address] [place] [address] [place] [address] PCP - [facility] Medicine 09/15/23 Mary Lee NP [address] [place] [address] [place] [address] PCP - ACO Reach 11/19/23 Oncology Social Worker Relationship Specialty Start Date End Date Avila Aquino MD [address] [facility] [address] [place] [address] PCP - General [facility] Medicine 09/15/23 Mary Lee NP [address] [facility] [address] [place] [address] PCP - ACO Reach 11/19/23 Reason for [...] BE BASED ON THE PRIMARY CLINICAL RECORDS. [facility]. provides no warranty or guarantee of the accuracy or completeness of information in this document.
[2024-06-07 07:50] VITALS: BP 167/84; PULSE 58; TEMP 36.3; O2SAT 100
[2024-06-07 08:38] VITALS: PULSE 56; O2SAT 93
[2024-06-07 08:39] VITALS: BP 162/74
[2024-06-07 08:40] VITALS: PULSE 57; O2SAT 93
[2024-06-07] MEDS: LIDOCAINE HCL 2% 400 MG/20 ML MDV 15 ML INJ (08:40)
[2024-06-07] MEDS: BUPIVACAINE HCL 0.25% PF 25 MG/10 ML VIAL INJ (08:40)
[2024-06-07 08:41] VITALS: BP 147/78
--- NOTE | 2024-06-07 08:43 | W.PM.PROCNOT ---
Date of procedure: 06/07/24 Pre-op diagnosis: Pain due to cervical spondylosis without myelopathy Post-op diagnosis: same as pre-op Procedure: Procedure: Left C4-5, 5-6 medial branch block Medications: Bupivacaine 0.25% 3cc The patient was seen and examined in the preoperative holding area.? The informed consent was obtained and placed on the chart.? The patient was brought to the medical procedure unit and placed in the prone position.? A timeout was completed verifying correct patient, procedure site, positioning, plan, and special equipment.? Using aseptic technique, the needle is placed at left C4. Under direct fluoroscopic visualization, a Quincke tip needle was advanced to the midpoint of the waist of the articular pillar at the respective medial branch segment. The above-mentioned injectate was placed in a 1 mL aliquot proceeded by negative aspiration.? The needle was removed.? The procedure was completed at left C5, 6. Insertion site was covered.? Patient was taken to the postprocedural recovery area and monitored for an appropriate length of time before found suitable for discharge in the accompaniment of a responsible adult. Anesthesia: Local Surgeon: Bogdan Calle Pathology: none sent Condition: stable Disposition: no change
== END 2024-06-07 08:46 | disposition home or self-care (01) ==
LOC: SURGOUT 07:38
PROVIDERS: PCP Family Medicine; Visit Provider Anesthesiology
DX: M47.812 Spondylosis without myelopathy or radiculopathy, cervical region (principal)
CPT/HCPCS: 64490; 64491; J0665

== ENCOUNTER 2024-06-09 12:29 | Outpatient (OUT) | payer MEDICARE, OTHER, SELFPAY ==
--- OUTSIDE RECORDS SUMMARY | 2024-06-09 12:37 | XMS_ITS | CCD ---
Author Organization [facility] Care Team Providers Care Certified Medical Dosimetrist Name Role Phone KENIA, RUGEN Admitting Unavailable KENIA, RUGEN Attending Unavailable MISC, DOCTOR Primary Care Unavailable KENIA, RUGEN Consulting Unavailable RENZO LEERI Admitting Unavailable MARY LEE Attending Unavailable KENIA, RUGEN Primary Care Unavailable MARY LEE Consulting Unavailable Leonardo Hernandezkat Attending Provider Mary Lee Primary Care Provider Jesus GRAB HOOKER, Mary Temple Unavailable EDMUNDO DENNEY Referring Unavailable [...] DENNEY Referring Unavailable BUCK CEE Attending Unavailable OAK RUN, EDMUNDO Lackey Referring Unavailable ERNESTO TAI Attending Unavailable [place], EDMUNDO Lackey Referring Unavailable ABIDA, ERNESTO Attending Unavailable SHANE, EDMUNDO Lackey Referring Unavailable BUCK CEE Attending Unavailable [place]AK RUN, EDMUNDO Lackey Referring Unavailable ERNESTO TAI Attending Unavailable SHANE, EDMUNDO Lackey Referring Unavailable BUCK CEE Attending Unavailable SHANE, EDMUNDO Lackey Referring Unavailable ERNESTO TAI Attending Unavailable OAK RUN, EDMUNDO Lackey Referring Unavailable LUIS EDUARDO MAS Attending Unavailable [place], EMDUNDO Lackey Referring Unavailable [place], EDMUNDO Lackey Attending Unavailable [place], EDMUNDO Lackey Referring Unavailable DIONISIO, MARCOS Lackey Attending Unavailable DIONISIO, MARCOS Lackey Attending Unavailable DIONISIO, MARCOS Lackey Attending Unavailable JESUS, MARY Temple Attending Unavailable SHANE, EDMUNDO Lackey Attending Unavailable Avila Aquino MD Primary Care Provider [phone] Jesus GRAB HOOKER, Mary Temple Unavailable Luc CATHERINE, Bogdan Snyder Attending Unavailable Luc CATHERINE, Andrius Snyder Attending Unavailable Luc CTAHERINE, Andrius Visabell Attending Unavailable Luc CATHERINE, Andrius Visabell Attending Unavailable Unavailable Unavailable Unavailable Medications Current Medications Medication Drug Class(es) Dates Sig (Normalized) Sig (Original) acetaminophen 325 mg / HYDROcodone bitartrate 5 mg oral tablet (9 sources) Opioid Agonist HYDROcodone-acet a minophen ([facility]) 5-325 MG tablet Active ALPRAZolam 0.25 mg [...] 07-28-2023 take 1 capsule by mo [facility] once daily in the morning hydroCHLOROthiazide (Microzide) [...] Paniagua MD on 02/04/2024 10:41 AM Normal [facility] BASIC METABOLIC PANLon 01-07 Anion gap [Moles/Vol] 9 mmol/L Normal 5-15 [facility] Comment on above: Performed By: #### C BCA, BMP #### [facility] ([id number]) [address], [address] [place] [address] Calcium [Mass/Vol] 9.0 mg/dL Normal 8.5-10.5 [facility] [place] Comment on above: Performed By: #### C BCA, BMP #### [facility] ([id number]) [address], [address] [place] [address] Chloride [Moles/Vol] 91 mmol/L Low 98-109 [facility] Comment on above: Performed By: #### C BCA, BMP #### [facility] ([id number]) [address] [place] [address] CO2 [Moles/Vol] 29 mmol/L Normal 22-32 [facility] Comment on above: Performed By: #### C BCA, BMP #### [facility] ([id number]) [address] [place] [address] Creatinine [Mass/Vol] 0.70 mg/dL Normal 0.60-1.30 [facility] Comment on above: Result Comment: METH OD TRACEABLE TO IDMS STANDARD Performed By: #### C LÁZARO, BMP #### [facility] ([id number]) [address], [address] [place] [address] eGFR (CKD-EPI) NON-RACE DEPENDENT >90 Normal >59 [facility] Comment on above: Result Comment: Reported eGFR is based on the CKD-EPI 2020 equation that does not use a race coefficient. Performed By: #### C BCA, BMP #### [facility] ([id number]) [address], [address] [place] [address] Glucose [Mass/Vol] 84 mg/dL Normal 65-99 [facility] [place] Comment on above: Performed By: #### C BCA, BMP #### [facility] ([id number]) [address] [place] [address] Potassium [Moles/Vol] 3.9 mmol/L Normal 3.5-5.0 [facility] Comment on above: Performed By: #### C LÁZARO, BMP #### [facility] ([id number]) [address] [address] [place] [address] Sodium [Moles/Vol] 129 mmol/L Low 134-146 [facility] [place] Comment on above: Performed By: #### C BCA, BMP #### [facility] ([id number]) [address] [address] [place] [address] Urea nitrogen [Mass/Vol] 10 mg/dL Normal 5-27 [facility] Comment on above: Performed By: #### C LÁZARO, BMP #### [facility] ([id number]) [address] [address] [place] [address] CBC AND AUTO DIFFon 01-07- 24 ABSOLUTE BASOPHIL 0.1 X10E9/L Normal 0.0-0.2 [facility] [place] Comment on above: Performed By: #### C BCA, BMP #### [facility] ([id number]) [address] [address] [place] [address] ABSOLUTE NEUTROPHIL 3.2 X10E9/L Normal 1.5-6.6 [facility] Comment on above: Performed By: #### C BCA, BMP #### [facility] ([id number]) [address] [address] [place] [address] Basophils/100 WBC (Bld) 1.0 % Normal [facility] Comment on above: Performed By: #### C BCA, BMP #### [facility] ([id number]) [address] [address] [place] [address] Eosinophils (Bld) [#/Vol] 0.2 10*3/uL Normal 0.0-0.4 [facility] Comment on above: Performed By: #### C BCA, BMP #### [facility] ([id number]) [address] [place] [address] Eosinophils/100 WBC (Bld) 4.1 % Normal [facility] Comment on above: Performed By: #### C LÁZARO, BMP #### [facility] ([id number]) [address] [place] [address] Erythrocyte distribution width (RBC) [Ratio] 14.5 % Normal 11.5-15.0 [facility] Comment on above: Performed By: #### C LÁZARO, BMP #### [facility] ([id number]) [address] [place] [address] Hematocrit (Bld) [Volume fraction] 43.0 % Normal 39-49 [facility] Comment on above: Performed By: #### C LÁZARO, BMP #### [facility] ([id number]) [address] [address] [place] [address] Hemoglobin (Bld) [Mass/Vol] 14.9 g/dL Normal 13.0-17.0 [facility] Comment on above: Performed By: #### C LÁZARO, BMP #### [facility] ([id number]) [address] [place] [address] Lymphocytes (Bld) [#/Vol] 1.5 10*3/uL Normal 1.0-3.5 [facility] Comment on above: Performed By: #### Bill SESAY, BMP #### [facility] ([id number]) [address] [place] [address] Lymphocytes/100 WBC (Bld) 26.2 % Normal [facility] Comment on above: Performed By: #### C LÁZARO, BMP #### [facility] ([id number]) [address] [place] [address] MCH (RBC) [Entitic mass] 33.8 pg Normal 27-34 [facility] Comment on above: Performed By: #### C LÁZARO, BMP #### [facility] ([id number]) [address] [place] [address] MCHC (RBC) [Mass/Vol] 34.5 g/dL Normal 32-36 [facility] Comment on above: Performed By: #### C LÁZARO, BMP #### [facility] ([id number]) [address] [place] [address] MCV (RBC) [Entitic vol] 98 fL Normal 80-100 [facility] Comment on above: Performed By: #### C LÁZARO, BMP #### [facility] ([id number]) [address] [place] [address] Monocytes (Bld) [#/Vol] 0.8 10*3/uL Normal 0-0.9 [facility] Comment on above: Performed By: #### C LÁZARO, BMP #### [facility] ([id number]) [address] [place] [address] Monocytes/100 WBC (Bld) 14.1 % Normal [facility] Comment on above: Performed By: #### C LÁZARO, BMP #### [facility] ([id number]) [address] [place] [address] Neutrophils/100 WBC (Bld) 54.6 % Normal [facility] Comment on above: Performed By: #### Bill SESAY, BMP #### [facility] ([id number]) [address] [place] [address] Platelet mean volume (Bld) [Entitic vol] 8.0 fL Normal 7-12 [facility] Comment on above: Performed By: #### C LÁZARO, BMP #### [facility] ([id number]) [address] [place] [address] Platelets (Bld) [#/Vol] 268 10*3/uL Normal 150-450 [facility] Comment on above: Performed By: #### C BCA, BMP #### [facility] ([id number]) [address] [place] [address] RBC COUNT 4.39 X10E12/L Normal 4.10-5.70 [facility] Comment on above: Performed By: #### C BCA, BMP #### [facility] ([id number]) [address] [place] [address] WBC (Bld) [#/Vol] 5.8 10*3/uL Normal 4.0-11.0 [facility] [place] Comment on above: Performed By: #### C BCA, BMP #### [facility] ([id number]) [address] [place] [address] XR Elbow - right 2 Viewson 0 09-01-2023 Imaging Result: September 01, 2023 x-rays AP and lateral of the right elbow demonstrate calcification at the proximal portion of the olecranon with osteophyte formation around the elbow consistent with arthritis. No fractures are noted. Impression: Osteoarthritis of the right elbow Ever Denney D.O. [facility] Radiology Study observation (narrative) [facility] XR Elbow - right 2 ViewsOrde red By: Edmundo Denney on 09-01-2023 [facility] [employer] Work Phone: CREATININEon 04-26-2020 Creatinine [Mass/Vol] 0.87 mg/dL Normal 0.66-1.25 [facility] Comment on above: Performed By: #### C FRANSISCO #### [facility] [address] [place], [place] [address] Courtney Shanon Creatinine [Mass/Vol] mg/dL Normal >=[address] [facility] Comment on above: Performed By: #### C FRANSISCO #### [facility] [address] [place], [place] [address] Courtneygwendolyn Claudio COVID-19 PCRon 02-26-2020 SARS-CoV-2, RONEL Not Detected Normal Not Detected [facility] Comment on above: Result Comment: This test was developed and its performance characteristics determined by [employer]. This test has not been FDA cleared [...] Performed By: #### C VDPCR #### [facility] [address] [place] [address] Courtney Claudio Vital Signs Date Time Vital Sign Value Performing Clinician Faci lity 04-22-2024 13:52-0400 Body height 170.2 cm Marcos Nichole DPM Work Phone: [facility] 04-22-2024 13:52-0400 Body mass index (BMI) [Ratio] 28.98 kg/m2 Marcos Nichole DPM Work Phone: [facility] 04-22-2024 13:52-0400 Body weight 83.92 kg Marcos Nichole DPM Work Phone: [facility] 04-22-2024 13:52-0400 Diastolic blood pressure 79 mm[Hg] Marcos Nichole DPM Work Phone: [facility] 04-22-2024 13:52-0400 Heart rate 76 /min Marcos Nichole DPM Work Phone: [facility] 04-22-2024 13:52-0400 Respiratory rate 17 /min Marcos Nichole DPM Work Phone: [facility] 04-22-2024 13:52-0400 Systolic blood pressure 125 mm[Hg] Marcos Nichole DPM Work Phone: [facility] Encounters Encounter Date Encounter Type Care Provider Facility Start: 05-24-2024 End: 05-24-2024 ambulatory Bogdan Calle MD Facility:[facility] Start: 04-27-2024 End: 04-27-2024 Bamboo flowsheet Edmundo Denney DO Work Phone: [facility] Start: 04-27-2024 End: 04-27-2024 Bamboo flowsheet Edmundo Denney DO Work Phone: [facility] Start: 04-27-2024 End: 04-27-2024 Postop follow up visit related to original px Edmundo Denney DO Work Phone: [facility] Comment on above: Primary osteoarthrit is of right knee; Status post right knee replacement Start: 04-27-2024 End: 04-27-2024 ambulatory EDMUNDO DENNEY Not Available Start: 04-22-2024 End: 04-22-2024 Bamboo flowsheet Marcos Nichole DPM Work Phone: [facility] Start: 04-22-2024 End: 04-22-2024 Bamboo flowsheet Marcos Nichole DPM Work Phone: [facility] Start: 04-22-2024 End: 04-22-2024 Office outpatient visit 15 minutes Marcos Nichole DPM Work Phone: [facility] Comment on above: Verruca [...] Evaluation and management of inpatient TERESE D [facility] Start: 02-04-2024 End: 02-05-2024 ambulatory [facility] Start: 01-27-2024 End: 01-27-2024 ambulatory [facility] Start: 01-13-2024 End: 01-13-2024 ambulatory MARY LEE Not Available Start: 01-08-2024 End: 01-08-2024 ambulatory [facility] Start: 01-08-2024 Encounter for other preprocedural examination [facility] Start: 01-08-2024 End: 01-08-2024 ambulatory EDMUNDO DENNEY [...] Start: 09-01-2023 Bamboo flowsheet Loreto Cervantesin g GRAB HOOKER Work Phone: [facility] Start: 09-01-2023 Bamboo flowsheet Loreto Cervantesin g GRAB HOOKER Work Phone: [facility] Start: 09-01-2023 End: 09-01-2023 ambulatory LORETO Strickland APLING Not Available Start: 09-01-2023 End: 09-01-2023 Office outpatient visit 15 minutes Loreto Strickland Helening GRAB HOOKER Work Phone: [facility] Comment on [...] Available Start: 09-13-2020 End: 09-13-2020 Discharged [facility]ring [facility] [address] Start: 05-02-2020 Encounter for preprocedural laboratory examination AVILA AQUINO [facility] Start: 04-26-2020 End: 04-27-2020 Patient encounter procedure MARY LEE Facility:[facility] Start: 02-25-2020 End: 02-26-2020 Patient encounter procedure AVILA AQUINO Facility:[facility] Encounter for preprocedural laboratory examination AVILA AQUINO [facility] Procedures Date Procedure Procedure Detail Performing Clinician Start: 09-01-2023 Radex elbow 2 views Mar ia B Rusty GRAB HOOKER Work Phone: Start: 03-17-2015 Colonoscopy Loreto Louis elise GRAB HOOKER Work Phone: Plan of Treatment Date Care [...] [facility] [address] [place] [id number] Marlon Contreras, GRAB HOOKER [address] [place] [address] [facility] Start: 07-16-2024 Pneumococcal Vaccine : 65+ Years (2 - PCV) Pneumococcal Vaccine: 65+ Years (2 - PCV) [facility] Comment on above: Postponed from [...] procedure 04/22/2024 1:40 PM EDT Office Visit [facility] [address] [facility] [address] [place] [address] Marcos Nichole DPM [address] [facility] [address] [place] [address] Verruca plantaris (Primary Dx); Foot pain, right [facility] Comment on above: Verruca plantaris (P rimary Dx); Foot pain, right Start: 03-21-2024 Influenza vaccination Influenza Vacc ine (#1) [facility] Start: 01-18-2024 Influenza vaccination Influenza Vacc ine (#1) [facility] Comment on above: Postponed from 03/21 (Patient Refused) Start: 09-15-2023 End: 09-15-2023 Patient encounter procedure 09/15/2023 1:15 PM EST Office Visit [facility] [address] [facility] [address] [place] [phone] Loreto Ojeda NP [address] [facility] [address] [place] [address] [facility] Start: 07-04-2023 Medicare Annual Well ness (AWV) Medicare Annual Wellness (AWV) [facility] Start: 09-28-2021 Screening for malign ant neoplasm of colon FIT-DNA [facility] Start: 1950 Screening for malign ant neoplasm of colon [facility] Immunizations Immunization Date Immunization Notes Care Provider Fa cility 07-11-2022 Influenza, High-dose Seasonal, Quadrivalent, Preservative Free Loreto Ojeda NP Work Phone: [facility] 07-11-2022 influenza virus vacc ine, unspecified formulation Loreto Ojeda NP Work Phone: [facility] 07-17-2021 Influenza, High-dose Seasonal, Quadrivalent, Preservative Free Loreto Ojeda GRAB HOOKER Work Phone: [facility] 07-17-2021 Pfizer Purple Cap SARS-CoV-2 Vaccination Loreto Ojeda NP Work Phone: [facility] 04-20-2020 influenza, high dose seasonal, preservative-free Loreto Ojeda GRAB HOOKER Work Phone: [facility] 07-30-2017 influenza, injectabl e, quadrivalent, contains preservative Loreto Ojeda GRAB HOOKER Work Phone: [facility] 07-30-2017 pneumococcal polysaccharide vaccine, 23 valent Loreto Ojeda GRAB HOOKER Work Phone: [facility] Payers Date Payer Category Payer Unknown [id number] 2022 Unknown [id number] 2020 Unknown [id number] 2017 Medicare [id number] 1959 Medicare [id number] 1959 Private Health Insurance [id number] 1952 Unknown [id number] 2.16.84 0.1.478542.3.579.2.593 1952 Unknown [id number] 2.16.84 0.1.323719.3.579.2.593 1952 Unknown [id number] 2.16.8 40.1.069739.3.579.2.1285 1952 Unknown [id number] 2.16.8 40.1.622018.3.579.2.1286 1952 Unknown [id number] 2.16.8 40.1.997270.3.579.2.1286 1952 Unknown [id number] 2.16.8 40.1.317130.3.579.2.1286 1952 Unknown [id number] 2.16.8 40.1.008375.3.579.2.1286 1952 Unknown [id number] 2.16.8 40.1.480979.3.579.2.1286 1952 Unknown [id number] 2.16.8 40.1.877716.3.579.2.1286 1952 Unknown [id number] 2.16.84 0.1.935911.3.579.2.9 1952 Unknown [id number] 2.16.84 0.1.418580.3.579.2.1258 1952 Unknown [id number] 2.16.84 0.1.577482.3.579.2.1258 1952 Unknown [id number] 2.16.84 0.1.548857.3.579.2.1258 1952 Unknown [id number] 2.16.84 0.1.904759.3.579.2.1258 1952 Unknown [id number] 2.16.84 0.1.312315.3.579.2.1258 1952 Unknown [id number] 2.16.84 0.1.347321.3.579.2.1258 1952 Unknown [id number] 2.16.84 0.1.954215.3.579.2.1258 1952 Unknown [id number] 2.16.84 0.1.125652.3.579.2.1258 1952 Unknown [id number] 2.16.84 0.1.413739.3.579.2.1258 1952 Unknown [id number] 2.16.84 0.1.502435.3.579.2.1258 1952 Unknown [id number] 2.16.84 0.1.192944.3.579.2.1258 1952 Unknown [id number] 2.16.84 0.1.592689.3.579.2.1258 1952 Unknown [id number] 2.16.84 0.1.633342.3.579.2.1258 1952 Unknown [id number] 2.16.84 0.1.196550.3.579.2.1258 1952 Unknown [id number] 2.16.84 0.1.378787.3.579.2.1258 1952 Unknown [id number] 2.16.84 0.1.036956.3.579.2.1258 1952 Unknown [id number] 2.16.84 0.1.669207.3.579.2.1258 1952 Unknown [id number] 2.16.84 0.1.366723.3.579.2.1258 1952 Unknown [id number] 2.16.84 0.1.021377.3.579.2.1258 1952 Unknown [id number] 2.16.84 0.1.162976.3.579.2.1258 1952 Unknown [id number] 2.16.84 0.1.990204.3.579.2.1258 1952 Unknown [id number] 2.16.84 0.1.959068.3.579.2.1258 1952 Unknown [id number] 2.16.84 0.1.989229.3.579.2.9 1952 Unknown [id number] 2.16.84 0.1.653136.3.579.2.1258 1952 Unknown [id number] 2.16.84 0.1.822910.3.579.2.1258 1952 Unknown [id number] 2.16.84 0.1.097876.3.579.2.1258 1952 Unknown [id number] 2.16.84 0.1.519009.3.579.2.1258 1952 Unknown [id number] 2.16.84 0.1.523122.3.579.2.1258 1952 Unknown [id number] 2.16.84 0.1.304764.3.579.2.1259 1952 Unknown [id number] 2.16.840 .1.838258.3.579.2.1259 1952 Unknown [id number] 2.16.840 .1.112887.3.579.2.1259 1952 Unknown [id number] 2.16. 840.1.733694.3.579.2.196 1952 Unknown [id number] 2.16. 840.1.690370.3.579.2.196 1952 Unknown [id number] 2.16. 840.1.669448.3.579.2.196 1952 Unknown [id number] 2.16. 840.1.592706.3.579.2.196 Self-pay Self Pay [id number] Social History Date Type Detail Facility Tobacco smoking stat [facility] Unknown if ever smoked [facility] Start: 1950 Sex Assigned At Male F [facility] Start: 08-04-2023 End: 01-08-2024 Tobacco smoking status [facility] Ex-smoker [facility] End: 07-21-2003 History of tobacco [...] by mouth Daily 90 tablet 3 HYDROcodone-acetaminophen ([facility]) 5-325 MG tablet tamsulosin (Flomax) 0.4 MG [...] Daily, Disp: 90 tablet, Rfl: 3 HYDROcodone-acetaminophen ([facility]) 5-325 MG tablet, , Disp: , Rfl: [...] Food Insecurity (02/04/2024) Received from [facility] Hunger Screening Within the past 12 months we worried whether our food would run out before we got money to buy more.: Never True Within the past 12 months the food we bought just didn't last and we didn't have money to get more.: Never True Transportation Needs: No Transportation Needs (02/04/2024) Received from [facility] PRAPARE - Transportation Lack of Transportation (Medical): No Lack of Transportation (Non-Medical): No Physical Activity: Not on file Stress: Not on file Social Connections: Not on file Intimate Partner Violence: Not on file Housing Stability: Low Risk (02/04/2024) Received from [facility] Housing Instability Are you worried or concerned [...] in a long posterior splint and prescribed [facility]. Presents in LAC. Removed today. Denies pain. [...] and content) DATE CREATED AUTHOR 05/03/2020 [facility] DATE CREATED AUTHOR AUTHOR'S ORGANIZ ATION 02/07/2024 [facility] DATE CREATED AUTHOR AUTHOR'S ORGANIZ ATION 04/29/2024 [facility] DATE CREATED AUTHOR AUTHOR'S ORGANIZ ATION 05/29/2024 [facility] Care Teams (unrecognized sec tion and content) Certified Medical Dosimetrist Relationship Specialty Start Date End Date Mary Lee GRAB HOOKER [address] [facility] [address] [place] [address] PCP - ACO Reach 12/12/22 Certified Medical Dosimetrist Relationship Specialty Start Date End Date Mary Lee GRAB HOOKER [address] [facility] [address] [place] [address] PCP - ACO Reach 12/12/22 Certified Medical Dosimetrist Relationship Specialty Start Date End Date Avila Aquino MD [address] [facility] [address] [place] [address] PCP - General Family Medicine 09/15/23 Mary Lee GRAB HOOKER [address] [facility] [address] [place] [address] PCP - ACO Reach 11/19/23 Certified Medical Dosimetrist Relationship Specialty Start Date End Date Avila Aquino MD [address] [facility] [address] [place] [address] PCP - General Family Medicine 09/15/23 Mary Lee NP [address] [place] [address] PCP - ACO Reach 11/19/23 Certified Medical Dosimetrist Relationship Specialty Start Date End Date Avila Aquino MD [address] [place] [address] PCP - [facility] Medicine 09/15/23 Mary Lee NP [address] [place] [address] PCP - ACO Reach 11/19/23 Certified Medical Dosimetrist Relationship Specialty Start Date End Date Avila Aquino MD [address] [facility] [address] [place] [address] PCP - General [facility] Medicine 09/15/23 Mary Lee NP [address] [facility] [address] [place] [address] PCP - ACO Reach 11/19/23 Reason for [...] BE BASED ON THE PRIMARY CLINICAL RECORDS. [facility]. provides no warranty or guarantee of the accuracy or completeness of information in this document.
--- NOTE | 2024-06-09 12:50 | P.CN_ITS ---
Consult Note: HPI Data of Consult Patient: known to practice within the last 3 years Requesting Physician: Tara Lozada NP Primary Care Provider: ZAYRA AQUINO Consult Narrative Reason for consult: f/u Narrative: Michael Vaughn a pleasant 74 year old male presents for evaluation and management of chronic neck pain. Longstanding hx of chronic neck pain secondary to cervical spondylosis unresponsive to greater than 6 weeks of provider guided HEP, tylenol, tizanidine, marijuana/THC, and topical creams. Pt rates pain 0/10 stiffness in left neck increasing to 8/10 with lifting, twisting, ROM, and by end of day. Pain increased with sitting. Recently underwent left C4-5 C5-6 MBB #1 with 100% improvement in pain and functional ability immediately following and 12 hours after the injection, preop pain 4/10 post op pain 0/10. cc:: CC: Tara Lozada NP Review of Systems ROS Status of ROS 10 or more systems reviewed and unremark able except as noted in history and below Musculoskeletal Reports: neck pain PFSH PFSH Medical History (Updated 09/18/23 @ 09:21 by Cesia Ruvalcaba) Anxiety ?F41.9 - Anxiety disorder, unspecified (ICD-10) Smoker ?F17.200 - Nicotine dependence, unspecified, uncomplicated (ICD-10) Lymphadenitis ?I88.9 - Nonspecific lymphadenitis, unspecified (ICD-10) Sleep apnea ?G47.30 - Sleep apnea, unspecified (ICD-10) Depression ?F32.A - Depression, unspecified (ICD-10) CVA (cerebral vascular accident) ?I63.9 - Cerebral infarction, unspecified (ICD-10) Ulcer Hypertension ?I10 - Essential (primary) hypertension (ICD-10) Surgical History H/O knee surgery ?Z98.890 - Other specified postprocedural states (ICD-10) S/P hernia repair ?Z98.890 - Other specified postprocedural states (ICD-10) ?Z87.19 - Personal history of other diseases of the digestive system (ICD-10) H/O carpal tunnel repair ?Z98.890 - Other specified postprocedural states (ICD-10) Meds Home Medications and Allergies Home Medications ?Medication ?Instructions ?Recorded ?Confirmed ?Type buspirone 15 mg tablet 15 mg PO BID 07/31/23 06/07/24 History carvedilol 6.25 mg tablet 6.25 mg PO BID 07/31/23 06/07/24 History hydrochlorothiazide 25 mg tablet 25 mg PO DAILY 07/31/23 06/07/24 History hydrocodone 5 mg-acetaminophen 325 1 tab PO Q6H PRN pain #12 tabs 07/31/23 06/07/24 Rx mg tablet venlafaxine 37.5 mg 37.5 mg PO DAILY 07/31/23 06/07/24 History capsule,extended release 24 hr (Effexor XR) tizanidine 4 mg capsule 4 mg PO BID PRN muscle spasticity 09/03/23 06/07/24 Rx #60 caps naloxone 4 mg/actuation nasal 4 mg intranasal Q3M PRN opioid 09/17/23 06/07/24 Rx spray (Narcan) overdose #1 ea Allergies Allergy/AdvReac Type Severity Reaction Status Date / Time No Known Drug Allergies Allergy Verified 06/07/24 07:52 Exam Constitutional Documenting provider has reviewed patient's vital signs: yes Common normals: no apparent distress, oriented x3, healthy appearing, alert and well nourished General appearance: cooperative HENAZ Common normals: normocephalic, hearing grossly normal bilaterally and moist oral mucous membranes Head and scalp: normocephalic Eye Common normals: PERRL Pupil: PERRL Neck & C-Spine Common normals: full ROM General: normal visual inspection Cervical spine: cervical ROM abnormal, pain with cervical ROM and cervical spine tenderness; no paracervical muscle tenderness and no paracervical muscle spasm Other: left positive facet loading pain over C4-6 facet joints negative radiculopathy strength 5/5 in BUE Chest Common normals: inspection of chest normal Respiratory Common normals: normal respiratory effort, no retractions and no use of accessory muscles Neuro Common normals: oriented x3, CN's II-XII intact bilaterally, moves all extremities, no focal motor deficits, no sensory deficits noted and deep tendon reflexes 2+ bilaterally Sensorium/orientation: alert Motor exam: strength 5/5 throughout and no movement abnormalities noted Psych Common normals: mental status grossly normal, thought process normal, cooperative, affect normal, speech normal and activity/motor behavior normal Speech: normal speech Thought process: normal thought process Results Additional Findings Additional findings: If on a controlled substance or opioids, I have checked an [place] report on this patient and there are no aberrancies noted in the prescribing history.??If on a controlled substance or opioid a drug screen was completed and reviewed within the last year, and if there has not been a drug screen completed we ordered one today to monitor higher risk, state monitored pain medication use. As part of providing excellent, safe, comprehensive care, the following was completed at our patient's visit: 1. A medication reconciliation and review to ensure accurate knowledge of current/active medications, including asking our patients to inform us about any [id number] medications or herbal remedies/nutritional supplements/alternative remedies. 2. A review to specifically ensure our patients have had annual screening for screening for depression, screening for tobacco use, and screening for unhealthy alcohol use. For concerning screenings had a discussion with the patient, provided patient education, and recommended follow-up with primary care provider when appropriate. If patient noted with a risk of falling, they received education on strength, gait, and balance training to prevent future risk of falling. Assessment and Plan Assessment and Plan (1) Cervical spondylosis: (2) Myofascial pain: Plan proceed with left C4-5 C5-6 facet joint RFA under fluoroscopy continue mobic 7.5mg BID, risks vs benefits reviewed to be taken with food. goal to wean to PRN. continue NNCP due to THC use continue HEP as tolerated f/u 1 month after RFA
== END 2024-06-09 12:30 | disposition home or self-care (01) ==
LOC: PM 12:29
PROVIDERS: PCP Family Medicine; Visit Provider Nurse Practitioner
DX: M47.812 Spondylosis without myelopathy or radiculopathy, cervical region (principal); M79.18 Myalgia, other site
CPT/HCPCS: G0463

== ENCOUNTER 2024-06-21 09:13 | Day surgery (SDC) | payer MEDICARE, OTHER, SELFPAY ==
[2024-06-21 09:29] VITALS: BP 173/80; PULSE 56; TEMP 36.1; O2SAT 99
--- OUTSIDE RECORDS SUMMARY | 2024-06-21 09:32 | XMS_ITS | CCD ---
Author Organization [facility] Care Team Providers Care Demolition Hammer Operator Name Role Phone KENIA, RUGEN Admitting Unavailable KENIA, RUGEN Attending Unavailable MISC, DOCTOR Primary Care Unavailable KENIA, RUGEN Consulting Unavailable RENZO LEERI Admitting Unavailable MARY LEE Attending Unavailable KENIA, RUGEN Primary Care Unavailable MARY LEE Consulting Unavailable Giorgio Hernandez Attending Provider Mary Lee Primary Care Provider [phone] Jesus CLIENT EVALUATOR, Mary Temple Unavailable [phone] EDMUNDO DENNEY Referring Unavailable RENZO LEERI Maverick [...] Attending Unavailable APLING, LORETO B Referring Unavailable JESUS, MARY M Attending Unavailable APLING, LORETO B Attending [...] DENNEY Referring Unavailable BUCK CEE Attending Unavailable SYRACUSE, EDMUNDO Lackey Referring Unavailable ERNESTO TAI Attending Unavailable SHANE, EDMUNDO Lackey Referring Unavailable ABIDA, ERNESTO Attending Unavailable SHANE, EDMUNDO Lackey Referring Unavailable BUCK CEE Attending Unavailable SHANE, EDMUNDO Lackey Referring Unavailable ABIDA, ERNESTO Attending Unavailable SHANE, EDMUNDO Lackey Referring Unavailable BUCK CEE Attending Unavailable SHANE, EDMUNDO Lackey Referring Unavailable ERNESTO TAI Attending Unavailable SYRACUSE, EDMUNDO Lackey Referring Unavailable LUIS EDUARDO MAS Attending Unavailable SYRACUSE, EDMUNDO Lackey Referring Unavailable SYRACUSE, EDMUNDO Lackey Attending Unavailable SYRACUSE, EDMUNDO Lackey Referring Unavailable DIONISIO, MARCOS Lackey Attending Unavailable DIONISIO, MARCOS Lackey Attending Unavailable DIONISIO, MARCOS Lackey Attending Unavailable JESUS, MARY Temple Attending Unavailable SHANE, EDMUNDO Lackey Attending Unavailable Kenia CATHERINE, Avila Temple Primary Care Provider [phone] Jesus CLIENT EVALUATOR, Mary Temple Unavailable Luc CATHERINE, Andrius Snyder Attending Unavailable Ginohemy CATHERINE, Andrius Vytautcarola Attending Unavailable Luc CATHERINE, Andrius Vytautas Attending Unavailable Luc CATHERINE, Andrius Vytautas Attending Unavailable Ginohemy CATHERINE, Andrius Vytautcarola Attending Unavailable Unavailable Unavailable Unavailable Medications Current Medications Medication Drug Class(es) Dates Sig (Normalized) Sig (Original) acetaminophen 325 mg / HYDROcodone bitartrate 5 mg oral tablet (9 sources) Opioid Agonist HYDROcodone-acet a minophen (Meherrin) 5-325 MG tablet Active ALPRAZolam 0.25 mg [...] Start: 07-28-2023 take 1 capsule by mo [facility] once daily in the morning hydroCHLOROthiazide [...] Paniagua MD on 02/04/2024 10:41 AM Normal [facility] BASIC METABOLIC PANLon 01-07 Anion gap [Moles/Vol] 9 mmol/L Normal 5-[address] [facility] Comment on above: Performed By: #### C BCA, BMP #### [facility] ([id number]) [address], [address] [place] [address] Calcium [Mass/Vol] 9.0 mg/dL Normal 8.5-10.5 [facility] Comment on above: Performed By: #### C BCA, BMP #### [facility] ([id number]) [address], [address] [place] [address] Chloride [Moles/Vol] 91 mmol/L Low 98-[address] [facility] Comment on above: Performed By: #### C BCA, BMP #### [facility] ([id number]) [address] [place] [address] CO2 [Moles/Vol] 29 mmol/L Normal 22-[address] [facility] Comment on above: Performed By: #### C BCA, BMP #### [facility] ([id number]) [address], [address] [place] [address] Creatinine [Mass/Vol] 0.70 mg/dL Normal 0.60-1.[address] [facility] Comment on above: Result Comment: METH OD TRACEABLE TO IDMS STANDARD Performed By: #### C BCA, BMP #### [facility] ([id number]) [address] [place] [address] eGFR (CKD-EPI) NON-RACE DEPENDENT >90 Normal >[address] [facility] Comment on above: Result Comment: Reported eGFR is based on the CKD-EPI 2021 equation that does not use a race coefficient. Performed By: #### C BCA, BMP #### [facility] ([id number]) [address] [place] [address] Glucose [Mass/Vol] 84 mg/dL Normal 65-99 [facility] Comment on above: Performed By: #### C BCA, BMP #### [facility] ([id number]) [address], [address] [place] [address] Potassium [Moles/Vol] 3.9 mmol/L Normal 3.5-5.[address] [facility] Comment on above: Performed By: #### Bill SESAY, BMP #### [facility] ([id number]) [address], [address] [place] [address] Sodium [Moles/Vol] 129 mmol/L Low 134-146 [facility] Comment on above: Performed By: #### C LÁZARO, BMP #### [facility] ([id number]) [address], [address] [place] [address] Urea nitrogen [Mass/Vol] 10 mg/dL Normal 5-[address] [facility] Comment on above: Performed By: #### C LÁZARO, BMP #### [facility] ([id number]) [address], [address] [place] [address] CBC AND AUTO DIFFon 01-08-20 24 ABSOLUTE BASOPHIL 0.1 X10E9/L Normal 0.0-0.2 [facility] Comment on above: Performed By: #### Bill SESAY, BMP #### [facility] ([id number]) [address], [address] [place] [address] ABSOLUTE NEUTROPHIL 3.2 X10E9/L Normal 1.5-6.[address] [facility] Comment on above: Performed By: #### Bill SESAY, BMP #### [facility] ([id number]) [address] [place] [address] Basophils/100 WBC (Bld) 1.0 % Normal [facility] Comment on above: Performed By: #### Bill SESAY, BMP #### [facility] ([id number]) [address] [place] [address] Eosinophils (Bld) [#/Vol] 0.2 10*3/uL Normal 0.0-0.[address] [facility] Comment on above: Performed By: #### C LÁZARO, BMP #### [facility] ([id number]) [address], [address] [place] [address] Eosinophils/100 WBC (Bld) 4.1 % Normal [facility] Comment on above: Performed By: #### C LÁZARO, BMP #### [facility] ([id number]) [address], [address] [place] [address] Erythrocyte distribution width (RBC) [Ratio] 14.5 % Normal 11.5-15.[address] [facility] Comment on above: Performed By: #### C LÁZARO, BMP #### [facility] ([id number]) [address], [address] [place] [address] Hematocrit (Bld) [Volume fraction] 43.0 % Normal 39-[address] [facility] Comment on above: Performed By: #### C LÁZARO, BMP #### [facility] ([id number]) [address], [address] [place] [address] Hemoglobin (Bld) [Mass/Vol] 14.9 g/dL Normal 13.0-17.[address] [facility] Comment on above: Performed By: #### Bill SESAY, BMP #### [facility] ([id number]) [address], [address] [place] [address] Lymphocytes (Bld) [#/Vol] 1.5 10*3/uL Normal 1.0-3.[address] [facility] Comment on above: Performed By: #### C LÁZARO, BMP #### [facility] ([id number]) [address], [address] [place] [address] Lymphocytes/100 WBC (Bld) 26.2 % Normal [facility] Comment on above: Performed By: #### C LÁZARO, BMP #### [facility] ([id number]) [address], [address] [place] [address] MCH (RBC) [Entitic mass] 33.8 pg Normal 27-[address] [facility] Comment on above: Performed By: #### C BCA, BMP #### [facility] ([id number]) [address], [address] [place] [address] MCHC (RBC) [Mass/Vol] 34.5 g/dL Normal 32-[address] [facility] Comment on above: Performed By: #### C BCA, BMP #### [facility] ([id number]) [address], [address] [place] [address] MCV (RBC) [Entitic vol] 98 fL Normal 80-[address] [facility] Comment on above: Performed By: #### C BCA, BMP #### [facility] ([id number]) [address], [address] [place] [address] Monocytes (Bld) [#/Vol] 0.8 10*3/uL Normal 0-0.[address] [facility] Comment on above: Performed By: #### C BCA, BMP #### [facility] ([id number]) [address], [address] [place] [address] Monocytes/100 WBC (Bld) 14.1 % Normal [facility] Comment on above: Performed By: #### C BCA, BMP #### [facility] ([id number]) [address], [address] [place] [address] Neutrophils/100 WBC (Bld) 54.6 % Normal [facility] Comment on above: Performed By: #### C BCA, BMP #### [facility] ([id number]) [address], [address] [place] [address] Platelet mean volume (Bld) [Entitic vol] 8.0 fL Normal 7-[address] [facility] Comment on above: Performed By: #### C BCA, BMP #### [facility] ([id number]) [address], [address] [place] [address] Platelets (Bld) [#/Vol] 268 10*3/uL Normal 150-[address] [facility] Comment on above: Performed By: #### C BCA, BMP #### [facility] ([id number]) [address], [address] [place] [address] RBC COUNT 4.39 X10E12/L Normal 4.10-5.[address] [facility] Comment on above: Performed By: #### C BCA, BMP #### [facility] ([id number]) [address], [address] [place] [address] WBC (Bld) [#/Vol] 5.8 10*3/uL Normal 4.0-11.0 [facility] Comment on above: Performed By: #### C LÁZARO, BMP #### [facility] ([id number]) [address], [facility] [address] [place] [address] XR Elbow - right 2 Viewson 0 09-01-2023 Imaging Result: September 01, 2023 x-rays AP and lateral of the right elbow demonstrate calcification at the proximal portion of the olecranon with osteophyte formation around the elbow consistent with arthritis. No fractures are noted. Impression: Osteoarthritis of the right elbow Ever Denney D.O. [facility] Radiology Study observation (narrative) [facility] XR Elbow - right 2 ViewsOrde red By: Edmundo Denney on 09-01-2023 [facility] [employer] Work Phone: CREATININEon 04-26-2020 Creatinine [Mass/Vol] 0.87 mg/dL Normal 0.66-1.25 [facility] Comment on above: Performed By: #### C FRANSISCO #### [facility] [address] [place] [address] Courtneygwendolyn Claudio Creatinine [Mass/Vol] mg/dL Normal >=60 [facility] Comment on above: Performed By: #### C FRANSISCO #### [facility] [address] [address] Courtneygwendolyn Claudio COVID-19 PCRon 02-26-2020 SARS-CoV-2, RONEL Not Detected Normal Not Detected [facility] Comment on above: Result Comment: This test was developed and its performance characteristics determined by [employer]. This test has not been FDA cleared [...] assay. Performed By: #### C VDPCR #### [facility] [address] [place] [address] Courtney Claudio Vital Signs Date Time Vital Sign Value Performing Clinician Mamie lee 04-22-2024 13:52-0400 Body height 170.2 cm Marcos Scott DPM Work Phone: [facility] 04-22-2024 13:52-0400 Body mass index (BMI) [Ratio] 28.98 kg/m2 Marcos Scott DPM Work Phone: [facility] 04-22-2024 13:52-0400 Body weight 83.92 kg Marcos Scott DPM Work Phone: [facility] 04-22-2024 13:52-0400 Diastolic blood pressure 79 mm[Hg] Marcos Scott DPM Work Phone: [facility] 04-22-2024 13:52-0400 Heart rate 76 /min Marcos Scott DPM Work Phone: [facility] 04-22-2024 13:52-0400 Respiratory rate 17 /min Marcos Scott DPM Work Phone: [facility] 04-22-2024 13:52-0400 Systolic blood pressure 125 mm[Hg] Marcos Scott DPM Work Phone: [facility] Encounters Encounter Date Encounter Type Care Provider Facility Start: 06-07-2024 End: 06-07-2024 ambulatory Andmaria de jesus Juaresitis Facility:[facility] Start: 05-24-2024 End: 05-24-2024 ambulatory Andrius Lillian Calle MD Facility:[facility] Start: 04-27-2024 End: 04-27-2024 Bamboo flowsheet Edmundo Denney DO Work Phone: [facility] Start: 04-27-2024 End: 04-27-2024 Bamboo flowsheet Edmundo Denney DO Work Phone: [facility] Start: 04-27-2024 End: 04-27-2024 Postop follow up visit related to original px Edmundo Denney DO Work Phone: [facility] Comment on above: Primary osteoarthrit is of right knee; Status post right knee replacement Start: 04-27-2024 End: 04-27-2024 ambulatory EDMUNDO DENNEY Not Available Start: 04-22-2024 End: 04-22-2024 Bamboo flowsheet Marcos Scott DPM Work Phone: [facility] Start: 04-22-2024 End: 04-22-2024 Bamboo flowsheet Marcos Scott DPM Work Phone: [facility] Start: 04-22-2024 End: 04-22-2024 Office outpatient visit 15 minutes Marcos Scott DPM Work Phone: [facility] Comment on above: Verruca plantaris (P rimary Dx); Foot pain, right Start: 04-22-2024 End: 04-22-2024 ambulatory MARCOS Lackey DIONISIO Not Available Start: 04-08-2024 End: 04-08-2024 ambulatory MARCOS Ziyad DIONISIO Not Available Start: 03-25-2024 End: 03-25-2024 ambulatory MARCOS A DIONISIO Not Available Start: 03-16-2024 End: 03-16-2024 ambulatory EDMUNDO Lackey SHANE Not Available Start: 03-15-2024 End: 03-15-2024 ambulatory LUIS EDUARDO Ean CHACE Not Available Start: 03-12-2024 End: 03-12-2024 ambulatory ERNESTO BRINK Not Available Start: 03-10-2024 End: 03-10-2024 ambulatory BUCK JAMILBLEY Not Available Start: 03-08-2024 End: 03-08-2024 ambulatory ERNESTO BRINK Not Available Start: 03-05-2024 End: 03-05-2024 ambulatory BUCKFLOR JAMILBLEY Not Available Start: 03-01-2024 End: 03-01-2024 ambulatory RENESTO BRINK Not Available Start: 02-27-2024 End: 03-01-2024 ambulatory ERNESTO BRINK Not Available Start: 02-25-2024 End: 02-25-2024 ambulatory BUCK DEVRIESY Not Available Start: 02-23-2024 End: 02-23-2024 ambulatory MARICRUZ WADSWORTH Not Available Start: 02-18-2024 End: 02-18-2024 ambulatory LUIS EDUARDO T CHACE Not Available Start: 02-17-2024 End: 02-17-2024 ambulatory EDMUNDO Ziyad SHANE Not Available Start: 02-06-2024 End: 02-06-2024 Evaluation and management of inpatient TERESE RODRIGUEZ [facility] Start: 02-04-2024 End: 02-05-2024 ambulatory [facility] Start: 01-27-2024 End: 01-27-2024 ambulatory [facility] Start: 01-13-2024 End: 01-13-2024 ambulatory MARY LEE Not Available Start: 01-08-2024 End: 01-08-2024 ambulatory [facility] Start: 01-08-2024 Encounter for other preprocedural examination [facility] Start: 01-08-2024 End: 01-08-2024 ambulatory EDMUNDO DENNEY Not Available Start: 11-25-2023 End: 11-25-2023 ambulatory LEWIS SOLO Not Available Start: 11-18-2023 End: 11-18-2023 ambulatory EDMUNDO DENNEY Not Available Start: 10-22-2023 End: 10-22-2023 ambulatory MARY LEE Not Available Start: 10-13-2023 End: 10-13-2023 ambulatory LORETO Strickland APLING Not Available Start: 09-29-2023 End: 09-29-2023 ambulatory Bogdan Calle MD Facility: [facility] Start: 09-15-2023 End: 09-15-2023 ambulatory LORETO OJEDA Not Available Start: 09-10-2023 End: 09-10-2023 ambulatory MARY LEE Not Available Start: 09-08-2023 End: 09-08-2023 ambulatory Bogdan Calle MD Facility: [facility] Start: 09-01-2023 Bamboo flowsheet Loreto Alcala g CLIENT EVALUATOR Work Phone: [facility] Start: 09-01-2023 Bamboo flowsheet Loreto Alcala g CLIENT EVALUATOR Work Phone: [facility] Start: 09-01-2023 End: 09-01-2023 ambulatory LORETO Strickland APLING Not Available Start: 09-01-2023 End: 09-01-2023 Office outpatient visit 15 minutes Loreto Ojeda CLIENT EVALUATOR Work Phone: [facility] Comment on above: Right elbow pain (Pr imary Dx); Contusion of right elbow, subsequent encounter; Sprain of right elbow, subsequent encounter Start: 08-18-2023 End: 08-18-2023 ambulatory Bogdan Calle MD Facility: [facility] Start: 08-04-2023 End: 08-04-2023 ambulatory LORETO Strickland APLING Not Available Start: 07-16-2023 End: 07-16-2023 ambulatory MARY LEE Not Available Start: 07-03-2023 End: 07-03-2023 ambulatory MARY LEE Not Available Start: 09-13-2020 End: 09-13-2020 Discharged Recurring Giorgio Tayanchili [facility]-Certified Drug Counselor [address] Start: 05-02-2020 Encounter for preprocedural laboratory examination AVILA KENIA [facility] Start: 04-26-2020 End: 04-27-2020 Patient encounter procedure MARY LEE Facility:[facility] Start: 02-25-2020 End: 02-26-2020 Patient encounter procedure RUGEN KENIA Facility:[facility] Encounter for preprocedural laboratory examination AVILA MCKEONA [facility] Procedures Date Procedure Procedure Detail Performing Clinician Start: 09-01-2023 Radex elbow 2 views Yudy Ojeda CLIENT EVALUATOR Work Phone: Start: 03-17-2015 Colonoscopy Loreto elise CLIENT EVALUATOR Work Phone: Plan of Treatment Date Care [...] [facility] [address] [place] [id number] Marlon Contreras, CLIENT EVALUATOR [address] [facility] [address] [facility] Start: 07-16-2024 Pneumococcal Vaccine [...] Start: 04-27-2024 End: 04-27-2024 [facility] Comment on above: Primary osteoarthrit is of right knee; Status post right knee replacement Start: 04-22-2024 End: 04-22-2024 Patient encounter procedure 04/22/2024 1:40 PM EDT Office Visit [facility] [address] [place] [address] Marcos Scott DPM [address] [facility] [address] [place] [address] Verruca plantaris (Primary Dx); Foot pain, right [facility] Comment on above: Verruca plantaris (P rimary Dx); Foot pain, right Start: 03-21-2024 Influenza vaccination Influenza Vacc ine (#1) [facility] Start: 01-18-2024 Influenza vaccination Influenza Vacc ine (#1) [facility] Comment on above: Postponed from 03/21 (Patient Refused) Start: 09-15-2023 End: 09-15-2023 Patient encounter procedure 09/15/2023 1:15 PM EST Office Visit [facility] [address] [place] [address] Loreto Ojeda NP [address] [place] [address] [facility] Start: 07-04-2023 Medicare Annual Well ness (AWV) Medicare Annual Wellness (AWV) [facility] Start: 09-28-2021 Screening for malign ant neoplasm of colon FIT-DNA [facility] Start: 1950 Screening for malign ant neoplasm of colon [facility] Immunizations Immunization Date Immunization Notes Care Provider Fa cility 07-11-2022 Influenza, High-dose Seasonal, Quadrivalent, Preservative Free Loreto Ojeda NP Work Phone: [facility] 07-11-2022 influenza virus vacc ine, unspecified formulation Loreto Ojeda NP Work Phone: [facility] 07-17-2021 Influenza, High-dose Seasonal, Quadrivalent, Preservative Free Loreto Apling CLIENT EVALUATOR Work Phone: [facility] 07-17-2021 Pfizer Purple Cap SARS-CoV-2 Vaccination Loreto Ojeda CLIENT EVALUATOR Work Phone: [facility] 04-20-2020 influenza, high dose seasonal, preservative-free Loreto Ojeda CLIENT EVALUATOR Work Phone: [facility] 07-30-2017 influenza, injectabl e, quadrivalent, contains preservative Loreto Ojeda CLIENT EVALUATOR Work Phone: [facility] 07-30-2017 pneumococcal polysaccharide vaccine, 23 valent Loreto Ojeda CLIENT EVALUATOR Work Phone: [facility] Payers Date Payer Category Payer Unknown [id number] 2022 Unknown [id number] 2020 Unknown [id number] 2017 Medicare [id number] 1959 Medicare [id number] 1959 Private Health Insurance [id number] 1952 Unknown [id number] 2.16.84 0.1.029831.3.579.2.593 1952 Unknown [id number] 2.16.84 0.1.212255.3.579.2.593 1952 Unknown [id number] 2.16.8 40.1.133907.3.579.2.1286 1952 Unknown [id number] 2.16.8 40.1.659062.3.579.2.1286 1952 Unknown [id number] 2.16.8 40.1.889377.3.579.2.1286 1952 Unknown [id number] 2.16.8 40.1.495261.3.579.2.128 1952 Unknown [id number] 2.16.8 40.1.059149.3.579.2.1285 1952 Unknown [id number] 2.16.8 40.1.001616.3.579.2.1285 1952 Unknown [id number] 2.16.8 40.1.870490.3.579.2.128 1952 Unknown [id number] 2.16.84 0.1.879150.3.579.2.1258 1952 Unknown [id number] 2.16.84 0.1.568917.3.579.2.1258 1952 Unknown [id number] 2.16.84 0.1.046587.3.579.2.9 1952 Unknown [id number] 2.16.84 0.1.165744.3.579.2.1258 1952 Unknown [id number] 2.16.84 0.1.687178.3.579.2.9 1952 Unknown [id number] 2.16.84 0.1.326648.3.579.2.1258 1952 Unknown [id number] 2.16.84 0.1.471934.3.579.2.9 1952 Unknown [id number] 2.16.84 0.1.944703.3.579.2.1258 1952 Unknown [id number] 2.16.84 0.1.578834.3.579.2.1258 1952 Unknown [id number] 2.16.84 0.1.930860.3.579.2.1258 1952 Unknown [id number] 2.16.84 0.1.011173.3.579.2.9 1952 Unknown [id number] 2.16.84 0.1.842381.3.579.2.1258 1952 Unknown [id number] 2.16.84 0.1.983352.3.579.2.9 1952 Unknown [id number] 2.16.84 0.1.584406.3.579.2.1258 1952 Unknown [id number] 2.16.84 0.1.219866.3.579.2.1258 1952 Unknown [id number] 2.16.84 0.1.573421.3.579.2.1258 1952 Unknown [id number] 2.16.84 0.1.754718.3.579.2.1258 1952 Unknown [id number] 2.16.84 0.1.654285.3.579.2.1258 1952 Unknown [id number] 2.16.84 0.1.993908.3.579.2.1258 1952 Unknown [id number] 2.16.84 0.1.539294.3.579.2.1258 1952 Unknown [id number] 2.16.84 0.1.446219.3.579.2.1258 1952 Unknown [id number] 2.16.84 0.1.120644.3.579.2.1258 1952 Unknown [id number] 2.16.84 0.1.175058.3.579.2.1258 1952 Unknown [id number] 2.16.84 0.1.201589.3.579.2.1258 1952 Unknown [id number] 2.16.84 0.1.344511.3.579.2.1258 1952 Unknown [id number] 2.16.84 0.1.467945.3.579.2.1258 1952 Unknown [id number] 2.16.84 0.1.674302.3.579.2.1258 1952 Unknown [id number] 2.16.84 0.1.493706.3.579.2.1258 1952 Unknown [id number] 2.16.84 0.1.557248.3.579.2.1259 1952 Unknown [id number] 2.16.84 0.1.010078.3.579.2.9 1952 Unknown [id number] 2.16.840 .1.123286.3.579.2.9 1952 Unknown [id number] 2.16.840 .1.119540.3.579.2.1259 1952 Unknown [id number] 2.16. 840.1.297657.3.579.2.196 1952 Unknown [id number] 2.16. 840.1.831701.3.579.2.196 1952 Unknown [id number] 2.16. 840.1.792530.3.579.2.196 1952 Unknown [id number] 2.16. 840.1.214247.3.579.2.196 1952 Unknown [id number] 2.16. 840.1.151417.3.579.2.196 Self-pay Self Pay [id number] Social History Date Type Detail Facility Tobacco smoking stat [facility] Unknown if ever smoked [facility] Start: 1950 Sex Assigned At Male F [facility] Start: 08-04-2023 End: 01-08-2024 Tobacco smoking status UTIS Ex-smoker [facility] End: 07-21-2003 History of tobacco use Current smoker [facility] End: 07-21-2003 History of tobacco use Cigarette Smoker [facility] Start: 08-04-2023 End: 01-08-2024 Tobacco use and exposure Smokeless tobacco non-user [facility] Start: 08-04-2023 End: 04-22-2024 Alcohol intake Current drinker of alcohol (finding) [facility] Start: 08-04-2023 End: 10-22-2023 History of Social function [facility] Start: 08-04-2023 End: 10-22-2023 Tobacco use panel [facility] Start: 07-03-2023 Alcohol Comment caffeine yes t ype: coffee [facility] [facility] Start: 1950 Sex Assigned At Not on file N [facility] Goals Date Patient Goal Desired Activity /State History of Present illness Narrative 04-27-2024 Edmundo Denney, DO - 04/27/2024 11:15 AM EDT Note [...] by mouth Daily 90 tablet 3 HYDROcodone-acetaminophen (Meherrin) 5-325 MG tablet tamsulosin (Flomax) 0.4 MG [...] of Presen t illness Narrative Patient: Michael Landis Vaughn : 1950 PCP: Avila Blackmon MD SUBJECTIVE Patient presents today for follow [...] Daily, Disp: 90 tablet, Rfl: 3 HYDROcodone-acetaminophen (Meherrin) 5-325 MG tablet, , Disp: , Rfl: [...] Insecurity: No Food Insecurity (02/04/2024) Received from [facility] [employer] Hunger Screening Within the past 12 months we worried whether our food would run out before we got money to buy more.: Never True Within the past 12 months the food we bought just didn't last and we didn't have money to get more.: Never True Transportation Needs: No Transportation Needs (02/04/2024) [facility] [employer] PRAPARE - Transportation Lack of Transportation (Medical): No Lack of Transportation (Non-Medical): No Physical Activity: Not on file Stress: Not on file Social Connections: Not on file Intimate Partner Violence: Not on file Housing Stability: Low Risk (02/04/2024) Received from [facility] Housing Instability Are you worried or concerned [...] in a long posterior splint and prescribed Meherrin. Presents in LAC. Removed today. Denies pain. [...] and content) DATE CREATED AUTHOR 05/03/2020 [facility] DATE CREATED AUTHOR AUTHOR'S ORGANIZ ATION 02/07/2024 [facility] DATE CREATED AUTHOR AUTHOR'S ORGANIZ ATION 04/29/2024 [facility] DATE CREATED AUTHOR AUTHOR'S ORGANIZ ATION 06/12/2024 [facility] Care Teams (unrecognized sec tion and content) Demolition Hammer Operator Relationship Specialty Start Date End Date Mary Lee NP [address] [address] PCP - ACO Reach 12/12/22 Demolition Hammer Operator Relationship Specialty Start Date End Date Mary Lee CLIENT EVALUATOR [address] [address] PCP - ACO Reach 12/12/22 Demolition Hammer Operator Relationship Specialty Start Date End Date Avila Blackmon MD [address] [facility] [address] [place] [address] PCP - General Family Medicine 09/15/23 Mary Lee NP [address] [facility] [address] [place] [address] PCP - ACO Reach 11/19/23 Demolition Hammer Operator Relationship Specialty Start Date End Date Avila Blackmon MD [address] [facility] [address] [place] [address] PCP - General Family Medicine 09/15/23 Mary Lee CLIENT EVALUATOR [address] [facility] [address] [place] [address] PCP - ACO Reach 11/19/23 Demolition Hammer Operator Relationship Specialty Start Date End Date Avila Blackmon MD [address] [facility] [address] [place] [address] PCP - General Family Medicine 09/15/23 Mary Lee, CLIENT EVALUATOR [address] [facility] [address] [place] [address] PCP - ACO Reach 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 [facility] provides no warranty or guarantee of the accuracy or completeness of information in this document.
[2024-06-21 09:46] VITALS: BP 181/84; PULSE 60; O2SAT 97
[2024-06-21 09:48] VITALS: BP 179/86; PULSE 58; O2SAT 97
[2024-06-21] MEDS: BUPIVACAINE HCL 0.25% PF 25 MG/10 ML VIAL 2 ML INJ (09:49)
[2024-06-21] MEDS: LIDOCAINE HCL 2% 400 MG/20 ML MDV 8 ML INJ (09:50)
[2024-06-21] MEDS: DEXAMETHASONE SOD PHOS 10 MG/ML VIAL INJ (09:50)
--- NOTE | 2024-06-21 09:58 | P.ON_ITS ---
Date of procedure: 06/21/24 Pre-op diagnosis: Pain due to cervical spondylosis without myelopathy Post-op diagnosis: same as pre-op Procedure: Procedure: Left C4-5, 5-6 radiofrequency ablation Medications: Bupivacaine 0.25% 2cc, lidocaine 2% 3cc, dexamethasone 10mg The patient was seen and examined in the preoperative holding area.? The site was marked.? Written informed consent was obtained and placed on the chart.? The patient was brought to the medical procedure unit and placed in the prone position.? A timeout was completed verifying correct patient, procedure, positioning, and special requirements.? The skin overlying the target points, the designated medial branch, were prepped and draped in the usual sterile fashion.? The target point was achieved with a 20-gauge 15 cm with a 10 mm curved active tip radiofrequency cannula under direct fluoroscopic visualization .? The needle was inserted at level C4 on the left side. Needle tip position was confirmed with lateral fluoroscopic position.? Motor stimulation was carried out at 2 Hz up to 5 volts with the absence of extremity activity.? This was repeated at level C5, 6 on left side.?? Sensory stimulation was carried out.? Concordant pain was realized at the above- mentioned sites.? Then radiofrequency lesioning was carried out times 90 seconds at 80 degrees times 2 lesions at each level.? The radiofrequency probe was removed prior to cannula removal.? The above-mentioned injectate was placed in 1 mL increments.? The needle was removed.? Insertion sites were covered.? The patient was taken to the postoperative recovery area and monitored for an appropriate length of time before being found suitable for discharge in the company of a responsible adult. Anesthesia: Local Surgeon: Bogdan Calle Pathology: none sent Condition: stable Disposition: no change
== END 2024-06-21 10:02 | disposition home or self-care (01) ==
LOC: SURGOUT 09:13
PROVIDERS: PCP Family Medicine; Visit Provider Anesthesiology
DX: M47.812 Spondylosis without myelopathy or radiculopathy, cervical region (principal)
CPT/HCPCS: 64633; 64634; J0665; J1100

== ENCOUNTER 2024-07-16 10:57 | Emergency (ER) | payer MEDICARE, SELFPAY ==
[2024-07-16 11:00] VITALS: BP 133/79; PULSE 64; TEMP 36.3; O2SAT 98; BMI 26.9
--- OUTSIDE RECORDS SUMMARY | 2024-07-16 11:07 | XMS_ITS | CCD ---
Author Organization [facility] Care Team Providers Care Cargo Trimmer Name Role Phone KENIA, RUGEN Admitting Unavailable KENIA, RUGEN Attending Unavailable MISC, DOCTOR Primary Care Unavailable KENIA, RUGEN Consulting Unavailable RENZO LEERI Admitting Unavailable MARY LEE Attending Unavailable KENIA, RUGEN Primary Care Unavailable RENZO LEERI Consulting Unavailable Giorgio Hernandez Attending Provider Mary Lee Primary Care Provider Jesus PHYSICAL EDUCATION TEACHER, Mary Temple Unavailable EDMUNDO EDNNEY Referring Unavailable RENZO LEERI M Primary Care Unavailable SHANEEDMUNDO Attending Unavailable EDMUNDO DENNEY Referring Unavailable MARY LEE Primary Care Unavailable EDMUNDO DENNEY Referring Unavailable MARY LEE Primary Care Unavailable SHANEEDMUNDO Referring Unavailable JESUSMARY M Primary Care Unavailable SHANEDEMUNDO ROCK Admitting Unavailable EDMUNDO DENNEY Attending Unavailable MARY LEE Primary Care Unavailable TERESE RODRIGUEZ Attending Unavailable JESUS, MARY M Primary Care Unavailable JESUS, MARY M Attending Unavailable APLING, LORETO B Attending Unavailable APLING, LORETO B Attending Unavailable APLING, LORETO B Referring Unavailable JESUS MARY M Attending Unavailable APLING, LORETO B Attending Unavailable APLING, LORETO B Attending Unavailable JESUSMARY M Attending Unavailable EDMUNDO DENNEY Attending Unavailable EDMUNDO DENNEY Referring Unavailable LEWIS SOLO Attending Unavailable EDMUNDO DENNEY Referring Unavailable EDMUNDO DENNEY Attending Unavailable MARY LEE Attending Unavailable EDMUNDO DENNEY Attending Unavailable LUIS EDUARDO THOMPSON Attending Unavailable EDMUNDO DENNEY Referring Unavailable MARICRUZ WADSWORTH Attending Unavailable SHANEEDMUNDO Referring Unavailable BUCK ARSHAD Attending Unavailable SHANE, EDMUNDO A Referring Unavailable EAMON TAI Attending Unavailable SHANE, EDMUNDO Lackey Referring Unavailable EAMON TAI Attending Unavailable SHANE, EDMUNDO Lackey Referring Unavailable BUCK ARSHAD Attending Unavailable SHANE, EDMUNDO Lackey Referring Unavailable EAMON TAI Attending Unavailable SHANE, EDMUNDO Lackey Referring Unavailable BUCK ARSHAD Attending Unavailable SHANE, EDMUNDO Lackey Referring Unavailable EAMON TAI Attending Unavailable SHANE, EDMUNDO Lackey Referring Unavailable LUIS EDUARDO THOMPSON Attending Unavailable SHANE, EDMUNDO Lackey Referring Unavailable SHANE, EDMUNDO Lackey Attending Unavailable SHANE, EDMUNDO Lackey Referring Unavailable TYLER, MARCOS Lackey Attending Unavailable TYLER, MARCOS Lackey Attending Unavailable TYLER, MARCOS Lackey Attending Unavailable JESUS, MARY Temple Attending Unavailable SHANE, EDMUNDO Lackey Attending Unavailable Kenia CATHERINE, Avila Temple Primary Care Provider Jesus PHYSICAL EDUCATION TEACHER, Mary Temple Unavailable [phone] Luc CATHERINE, Andrius Snyder Attending Unavailable Luc CATHERINE, Andrius Vyterlin Attending Unavailable Gidustyitis , Andrius Vytautas Attending Unavailable Gidustyitis , Andrius Vytautas Attending Unavailable Giedraitis , Andrius Vytautas Attending Unavailable Giedraitis , Andrius Vytautcarola Attending Unavailable Friday AVRILGabriela Unavailable Unavailable Unavailable Unavailable Medications Current Medications Medication Drug Class(es) Dates Sig (Normalized) Sig (Original) acetaminophen 325 mg / HYDROcodone bitartrate 5 mg oral tablet (20 sources) Opioid Agonist HYDROcodone-acet a minophen (Irrigon) 5-325 MG tablet Active ALPRAZolam 0.25 mg oral tablet (20 sources) Benzodiazepine Start: 09-24-2023 End: 07-15-2024 take 1 tablet by mouth three times daily as needed for anxiety ALPRAZolam (Xanax) 0.25 MG tablet Indications: Anxiety Take 1 tablet (0.25 mg) by mouth 3 (three) times a day as needed for anxiety 30 tablet 2 07/15/2024 Active Start: 07-10-2023 take 1 tablet by jorge a th three times daily as needed for anxiety ALPRAZolam (Xanax) 0.25 MG tablet Indications: Anxiety Take 1 tablet (0.25 mg) by mouth 3 (three) times a day as needed for anxiety 30 tablet 0 07/10/2023 Active Blood Pressure kit (20 sources) Start: 10-22-2023 Blood Pressure kit Indications: Primary hypertension (CMS/HCC) 1 Units in the morning and 1 Units in the evening and 1 Units before bedtime. 1 kit 10/22/2023 Active busPIRone hydrochloride 5 mg oral tablet (20 sources) Start: 12-01-2023 take 2 tablets by [...] list cleanup) carvedilol 12.5 mg oral tablet (20 sources) alpha-Adrenergic Ivelisse, beta-Adrenergic Ivelisse Start: 03-29-2024 End: 07-15-2024 take 1 tablet by mouth in the morning carvedilol (Coreg) 12.5 MG tablet Indications: Hypertriglyceridemia (CMS/HCC) Take 1 tablet (12.5 mg) by mouth in the morning and 1 tablet (12.5 mg) before bedtime. 200 tablet 3 07/15/2024 Active Start: 02-18-2023 take 1 tablet by jorge a twice daily carvedilol (Coreg) 12.5 MG tablet Indications: Hypertriglyceridemia (CMS/HCC) TAKE ONE TABLET BY MOUTH TWICE A DAY 200 tablet 3 02/18/2023 Active hydroCHLOROthiazide 50 mg oral tablet (20 sources) Thiazide Diuretic Start: 01-13-2024 End: 01-12-2025 take 1 tablet by mouth once daily hydroCHLOROthiazide (HYDRODiuril) 50 MG tablet Indications: Primary hypertension (CMS/HCC) Take 1 tablet (50 mg) by mouth Daily 90 tablet 3 01/13/2024 01/12/2025 Active Start: 07-28-2023 take 1 capsule by mo [facility] once daily in the morning hydroCHLOROthiazide (Microzide) 12.5 MG capsule Indications: Hypertension, unspecified type (CMS/HCC) TAKE ONE CAPSULE BY MOUTH EVERY MORNING 90 capsule 0 07/28/2023 Active tamsulosin hydrochloride 0.4 mg oral capsule (20 sources) alpha-Adrenergic Ivelisse Start: 10-14-2023 End: 07-15-2024 take 1 capsule by mouth once daily tamsulosin (Flomax) 0.4 MG 24 hr capsule Indications: Benign prostatic hyperplasia, unspecified whether lower urinary tract symptoms present Take 1 capsule (0.4 mg) by mouth Daily 90 capsule 1 07/15/2024 Active Start: 04-14-2023 take 1 capsule by mo [facility] once daily tamsulosin (Flomax) 0.4 MG 24 hr capsule Indications: Benign prostatic hyperplasia, unspecified whether lower urinary tract symptoms present TAKE ONE CAPSULE BY MOUTH DAILY 90 capsule 1 04/14/2023 Active tiZANidine 4 mg oral tablet (20 sources) Central alpha-2 Adrenergic Agonist Start: 01-13-2024 End: 07-15-2024 take 1 tablet by mouth every six hours for muscle spasms tiZANidine (Zanaflex) 4 MG tablet Indications: Muscle spasm of back Take 1 tablet (4 mg) by mouth every 6 (six) hours if needed for muscle spasms 30 tablet 2 07/15/2024 Active Start: 07-22-2023 take 1 tablet by [facility] every six hours as needed for muscle spasms tiZANidine (Zanaflex) 4 MG tablet Indications: Muscle spasm of back TAKE ONE TABLET BY MOUTH EVERY 6 HOURS NEEDED FOR MUSCLE SPASMS 30 tablet 0 07/22/2023 Active venlafaxine 75 mg oral tablet (20 sources) Serotonin and Norepinephrine Reuptake Inhibitor Start: 05-31-2024 take 1 tablet by mouth in the morning, then take 1 tablet by mouth in the evening, then take 1 tablet by mouth at bedtime venlafaxine (Effexor) 75 MG tablet Indications: Adjustment disorder with anxiety (CMS/HCC) Take 1 tablet (75 mg) by mouth in the morning and 1 tablet (75 mg) in the evening and 1 tablet (75 mg) before bedtime. 300 tablet 05/31/2024 Active Start: 03-01-2024 take 1 tablet by jorge a th [...] Documented Date Episodic/Chronic Acute and chronic tonsillitis (20 sources) Hypertrophy of tonsils AND adenoids; Translations: [Hypertrophy of tonsils with hypertrophy of adenoids] Onset: 02-18-2023 02-18-2023 Chronic Adjustment disorders (20 sources) Adjustment disorder with anxious mood; Translations: [Adjustment disorder with anxiety] Onset: 02-18-2023 02-18-2023 Chronic Alcohol-related disorders (20 sources) Alcohol abuse; Translations: [Alcohol abuse, uncomplicated] Onset: 02-18-2023 02-18-2023 Chronic Anxiety disorders (2 sources) Anxiety; Translations: [Anxiety disorder, unspecified] 07-15-2024 Chronic Disorders of lipid metabolism (20 sources) Hypertriglyceridemia; Translations: [Pure hyperglyceridemia] Onset: 02-18-2023 02-18-2023 Chronic Essential hypertension (20 sources) Hypertensive disorder; Translations: [Essential (primary) hypertension] Onset: 02-18-2023 02-18-2023 Chronic Hyperplasia of prostate (20 sources) Benign prostatic hyperplasia; Translations: [Benign prostatic hyperplasia without lower urinary tract symptoms] Onset: 02-18-2023 02-18-2023 Chronic Immunizations and screening for infectious disease (4 sources) Encounter for screening for other viral diseases; Translations: [ENC SCREENING FOR OTH VIRAL DZ] Onset: 02-25-2020 Episodic Osteoarthritis (20 sources) Osteoarthritis of right knee joint; Translations: [Unilateral primary osteoarthritis, right knee] Onset: 02-18-2023 02-18-2023 Chronic Other connective tissue disease (1 source) Presence of right artificial knee joint; Translations: [Presence of right artificial knee joint] Onset: 02-04-2024 Chronic Other connective tissue disease (4 sources) History of total knee arthroplasty; Translations: [Presence of right artificial knee joint] 04-26-2024 Chronic Other connective tissue disease (3 sources) Artificial knee joint present; Translations: [Presence of right artificial knee joint] 03-12-2024 Chronic Other connective tissue disease (6 sources) Pain in right foot; Translations: [Pain in right foot] 04-19-2024 Episodic Other nervous system disorders (20 sources) Carpal tunnel syndrome; Translations: [Carpal tunnel syndrome, unspecified upper limb] Onset: 02-18-2023 02-18-2023 Chronic Other non-traumatic joint disorders (2 sources) Pain in elbow; Translations: [Pain in right elbow] 08-28-2023 Episodic Other non-traumatic joint disorders (2 sources) Hip pain; Translations: [Pain in left hip] 07-15-2024 Episodic Other nutritional; endocrine; and metabolic disorders (3 sources) Disorder of carbohydrate metabolism; Translations: [Other disorders of intestinal carbohydrate absorption] Onset: 02-18-2023 02-18-2023 Chronic Other nutritional; endocrine; and metabolic disorders (20 sources) Morbid obesity; Translations: [Morbid (severe) obesity due to excess calories] Onset: 02-18-2023 02-18-2023 Chronic Residual codes; unclassified (20 sources) Sleep apnea; Translations: [Sleep apnea, unspecified] Onset: 02-18-2023 02-18-2023 Chronic Residual codes; unclassified (1 source) Sleep apnea, unspecified; Translations: [Sleep apnea, unspecified] Onset: 01-08-2024 Chronic Spondylosis; intervertebral disc disorders; other back problems (4 sources) Acute low back pain; Translations: [Acute bilateral low back pain without sciatica] 07-15-2024 Episodic Sprains and strains (2 sources) Unspecified sprain of right elbow, subsequent encounter; Translations: [Other specified aftercare] 08-28-2023 Episodic Superficial injury; contusion (2 sources) Contusion of right elbow; Translations: [Contusion of right elbow, subsequent encounter] 08-28-2023 Episodic Unclassified (1 source) right knee degenerative joint disease Onset: 02-04-2024 Viral infection (6 sources) Verruca plantaris; Translations: [Plantar wart] 04-19-2024 Episodic Past or Other Problems Problem Classification Problem Date Documented Da te Episodic/Chronic Mood disorders (20 sources) Mood disorders Onset: 10-22-2023 10-22-2023 Neoplasms of unspecified nature or uncertain behavior (2 sources) Neoplasm of uncertain behavior of skin; Translations: [Neoplasm of uncertain behavior of skin] 03-25-2024 Episodic Other acquired deformities (20 sources) Acquired spondylolisthesis ; Translations: [Spondylolisthesi s, site unspecified] Onset: 02-18-2023 02-18-2023 Episodic Other nervous system disorders (20 sources) Paresthesia; Translations: [Paresthesia of skin] Onset: 02-18-2023 02-18-2023 Episodic Other non-traumatic joint disorders (3 sources) Pain in right knee; Translations: [Pain in joint, lower leg] 03-12-2024 Episodic Results Test Name Value Interpretation Reference Range Facil ity XR Knee - right 1 or 2 Views on 03-16-2024 Imaging Result: March 16, 2024 x-rays AP and lateral of the right knee demonstrate right total knee replacement in good position alignment without signs of loosening fracture or failure. Impression: Stable appearance of right total knee replacement [facility] (narrative) [facility] XR KNEE RT 1 OR 2 VWSon [...] on 02/04/2024 10:41 AM Normal [facility] BASIC METABOLIC PANLon 01-07 Anion gap [Moles/Vol] 9 mmol/L Normal 5-15 [facility] Comment on above: Performed By: #### C BCA, BMP #### [facility] ([id number]) [address], [address] [place] [address] Calcium [Mass/Vol] 9.0 mg/dL Normal 8.5-10.5 [facility] Comment on above: Performed By: #### C LÁZARO, BMP #### [facility] ([id number]) [address], [address] [place] [address] Chloride [Moles/Vol] 91 mmol/L Low 98-109 [facility] Comment on above: Performed By: #### C LÁZARO, BMP #### [facility] ([id number]) [address], [address] [place] [address] CO2 [Moles/Vol] 29 mmol/L Normal 22-32 [facility] Comment on above: Performed By: #### C LÁZARO, BMP #### [facility] ([id number]) [address], [address] [place] [address] Creatinine [Mass/Vol] 0.70 mg/dL Normal 0.60-1.30 [facility] Comment on above: Result Comment: METH OD TRACEABLE TO IDMS STANDARD Performed By: #### C LÁZARO, BMP #### [facility] ([id number]) [address], [address] [place] [address] eGFR (CKD-EPI) NON-RACE DEPENDENT >90 Normal >59 [facility] Comment on above: Result Comment: Reported eGFR is based on the CKD-EPI 2020 equation that does not use a race coefficient. Performed By: #### C LÁZARO, BMP #### [facility] ([id number]) [address], [address] [place] [address] Glucose [Mass/Vol] 84 mg/dL Normal 65-99 [facility] Comment on above: Performed By: #### C LÁZARO, BMP #### [facility] ([id number]) [address], [address] [place] [address] Potassium [Moles/Vol] 3.9 mmol/L Normal 3.5-5.0 [facility] Comment on above: Performed By: #### C BCA, BMP #### [facility] ([id number]) [address], [address] [place] [address] Sodium [Moles/Vol] 129 mmol/L Low 134-146 [facility] Comment on above: Performed By: #### C BCA, BMP #### [facility] ([id number]) [address], [facility] [address] [place] [address] Urea nitrogen [Mass/Vol] 10 mg/dL Normal 5-27 [facility] Comment on above: Performed By: #### C BCA, BMP #### [facility] ([id number]) [address] [place] [address] CBC AND AUTO DIFFon 01-08-20 24 ABSOLUTE BASOPHIL 0.1 X10E9/L Normal 0.0-0.2 [facility] Comment on above: Performed By: #### C BCA, BMP #### [facility] ([id number]) [address], [facility] [address] [place] [address] ABSOLUTE NEUTROPHIL 3.2 X10E9/L Normal 1.5-6.6 [facility] Comment on above: Performed By: #### C BCA, BMP #### [facility] ([id number]) [address] [place] [address] Basophils/100 WBC (Bld) 1.0 % Normal [facility] Comment on above: Performed By: #### C BCA, BMP #### [facility] ([id number]) [address] [place] [address] Eosinophils (Bld) [#/Vol] 0.2 10*3/uL Normal 0.0-0.4 [facility] Comment on above: Performed By: #### C BCA, BMP #### [facility] ([id number]) [address], [address] [place] [address] Eosinophils/100 WBC (Bld) 4.1 % Normal [facility] Comment on above: Performed By: #### Bill SESAY, BMP #### [facility] ([id number]) [address], [address] [place] [address] Erythrocyte distribution width (RBC) [Ratio] 14.5 % Normal 11.5-15.0 [facility] Comment on above: Performed By: #### C LÁZARO, BMP #### [facility] ([id number]) [address], [address] [place] [address] Hematocrit (Bld) [Volume fraction] 43.0 % Normal 39-49 [facility] Comment on above: Performed By: #### C LÁZARO, BMP #### [facility] ([id number]) [address], [address] [place] [address] Hemoglobin (Bld) [Mass/Vol] 14.9 g/dL Normal 13.0-17.0 [facility] Comment on above: Performed By: #### Bill SESAY, BMP #### [facility] ([id number]) [address], [address] [place] [address] Lymphocytes (Bld) [#/Vol] 1.5 10*3/uL Normal 1.0-3.5 [facility] Comment on above: Performed By: #### Bill SESAY, BMP #### [facility] ([id number]) [address], [address] [place] [address] Lymphocytes/100 WBC (Bld) 26.2 % Normal [facility] Comment on above: Performed By: #### C BCA, BMP #### [facility] ([id number]) [address], [address] [place] [address] MCH (RBC) [Entitic mass] 33.8 pg Normal 27-34 [facility] Comment on above: Performed By: #### C LÁZARO, BMP #### [facility] ([id number]) [address], [address] [place] [address] MCHC (RBC) [Mass/Vol] 34.5 g/dL Normal 32-36 [facility] Comment on above: Performed By: #### C LÁZARO, BMP #### [facility] ([id number]) [address], [address] [place] [address] MCV (RBC) [Entitic vol] 98 fL Normal 80-100 [facility] Comment on above: Performed By: #### C LÁZARO, BMP #### [facility] ([id number]) [address], [address] [place] [address] Monocytes (Bld) [#/Vol] 0.8 10*3/uL Normal 0-0.9 [facility] Comment on above: Performed By: #### C LÁZARO, BMP #### [facility] ([id number]) [address], [address] [place] [address] Monocytes/100 WBC (Bld) 14.1 % Normal [facility] Comment on above: Performed By: #### C LÁZARO, BMP #### [facility] ([id number]) [address], [address] [place] [address] Neutrophils/100 WBC (Bld) 54.6 % Normal [facility] Comment on above: Performed By: #### Bill SESAY, BMP #### [facility] ([id number]) [address], [address] [place] [address] Platelet mean volume (Bld) [Entitic vol] 8.0 fL Normal 7-12 [facility] Comment on above: Performed By: #### C LÁZARO, BMP #### [facility] ([id number]) [address], [address] [place] [address] Platelets (Bld) [#/Vol] 268 10*3/uL Normal 150-450 [facility] Comment on above: Performed By: #### C BCA, BMP #### [facility] ([id number]) [address], [address] [place] [address] RBC COUNT 4.39 X10E12/L Normal 4.10-5.70 [facility] Comment on above: Performed By: #### C BCA, BMP #### [facility] ([id number]) [address], [address] [place] [address] WBC (Bld) [#/Vol] 5.8 10*3/uL Normal 4.0-11.0 [facility] Comment on above: Performed By: #### C BCA, BMP #### [facility] ([id number]) [address], [address] [place] [address] XR Elbow - right 2 Viewson 0 09-01-2023 Imaging Result: September 01, 2023 x-rays AP and lateral of the right elbow demonstrate calcification at the proximal portion of the olecranon with osteophyte formation around the elbow consistent with arthritis. No fractures are noted. Impression: Osteoarthritis of the right elbow Ever Denney D.O. [facility] Radiology Study observation (narrative) [facility] XR Elbow - right 2 ViewsOrde red By: Edmundo Denney on 09-01-2023 [facility] [employer] Work Phone: CREATININEon 04-26-2020 Creatinine [Mass/Vol] 0.87 mg/dL Normal 0.66-1.25 [facility] Comment on above: Performed By: #### C FRANSISCO #### [facility] [address] [place], [place] [address] Courtney Claudio Creatinine [Mass/Vol] mg/dL Normal >=60 [facility] Comment on above: Performed By: #### C FRANSISCO #### [facility] [address] [place], [place] [address] Courtney Claudio COVID-19 PCRon 02-26-2020 SARS-CoV-2, RONEL Not Detected Normal Not Detected [facility] Comment on above: Result Comment: This test was developed and its performance characteristics determined by [facility]. This test has not been FDA cleared [...] assay. Performed By: #### C VDPCR #### [facility] [address] [place] [address] Vital Signs Date Time Vital Sign Value Performing Clinician Faci lity 07-15-2024 16:28-0500 Body height 170.2 cm Mary Lee PHYSICAL EDUCATION TEACHER Work Phone: [facility] 07-15-2024 16:28-0500 Body mass index (BMI) [Ratio] 29.76 kg/m2 Mary Lee PHYSICAL EDUCATION TEACHER Work Phone: [facility] 07-15-2024 16:28-0500 Body weight 86.18 kg Mary Lee PHYSICAL EDUCATION TEACHER Work Phone: [facility] 07-15-2024 16:28-0500 Diastolic blood pressure 90 mm[Hg] Mary Lee PHYSICAL EDUCATION TEACHER Work Phone: [facility] 07-15-2024 16:28-0500 Heart rate 60 /min Mary Lee PHYSICAL EDUCATION TEACHER Work Phone: [facility] 07-15-2024 16:28-0500 Respiratory rate 17 /min Mary Lee PHYSICAL EDUCATION TEACHER Work Phone: [facility] 07-15-2024 16:28-0500 SaO2% (BldA) [Mass fraction] 96 % Mary Lee PHYSICAL EDUCATION TEACHER Work Phone: [facility] 07-15-2024 16:28-0500 Systolic blood pressure 185 mm[Hg] Mary Lee PHYSICAL EDUCATION TEACHER Work Phone: [facility] 04-22-2024 13:52-0400 Body height 170.2 cm Marcos Brown DPM Work Phone: [facility] 04-22-2024 13:52-0400 Body mass index (BMI) [Ratio] 28.98 kg/m2 Marcos Brown DPM Work Phone: [facility] 04-22-2024 13:52-0400 Body weight 83.92 kg Marcos Brown DPM Work Phone: [facility] 04-22-2024 13:52-0400 Diastolic blood pressure 79 mm[Hg] Marcos Brown DPM Work Phone: [facility] 04-22-2024 13:52-0400 Heart rate 76 /min Marcos Brown DPM Work Phone: [facility] 04-22-2024 13:52-0400 Respiratory rate 17 /min Marcos Brown DPM Work Phone: [facility] 04-22-2024 13:52-0400 Systolic blood pressure 125 mm[Hg] Marcos Brown DPM Work Phone: [facility] 04-08-2024 14:24-0400 Body height 170.2 cm Marcos Brown DPM Work Phone: [facility] 04-08-2024 14:24-0400 Body mass index (BMI) [Ratio] 28.98 kg/m2 Marcos Brown DPM Work Phone: [facility] 04-08-2024 14:24-0400 Body weight 83.92 kg Marcos Brown DPM Work Phone: [facility] 04-08-2024 14:24-0400 Diastolic blood pressure 79 mm[Hg] Marcos Nichole DPM Work Phone: [facility] 04-08-2024 14:24-0400 Heart rate 78 /min Marcos Nichole DPM Work Phone: [facility] 04-08-2024 14:24-0400 Respiratory rate 18 /min Marcos Nichole DPM Work Phone: [facility] 04-08-2024 14:24-0400 Systolic blood pressure 125 mm[Hg] Marcos Nichole DPM Work Phone: [facility] 03-25-2024 13:29-0400 Body height 170.2 cm Marcos Nichole DPM Work Phone: [facility] 03-25-2024 13:29-0400 Body mass index (BMI) [Ratio] 28.98 kg/m2 Marcos Nichole DPM Work Phone: [facility] 03-25-2024 13:29-0400 Body weight 83.92 kg Marcos Nichole DPM Work Phone: [facility] 03-25-2024 13:29-0400 Diastolic blood pressure 79 mm[Hg] Marcos Nichole DPM Work Phone: [facility] 03-25-2024 13:29-0400 Heart rate 82 /min Marcos Nichole DPM Work Phone: [facility] 03-25-2024 13:29-0400 Systolic blood pressure 125 mm[Hg] Marcos Nichole DPM Work Phone: [facility] Healthcare Encounters Encounter Date Encounter Type Care Provider Facility Start: 07-15-2024 End: 07-15-2024 Office outpatient visit 25 minutes Mary Lee NP Work Phone: [facility] Comment on above: Acute bilateral low back pain without sciatica (Primary Dx); Anxiety; Hypertriglyceridemia (CMS/HCC); Muscle spasm of back; Benign prostatic hyperplasia, unspecified whether lower urinary tract symptoms present; Acute pain of left hip Start: 07-15-2024 End: 07-15-2024 Bamboo flowsheet Mary Lee PHYSICAL EDUCATION TEACHER Work Phone: [facility] Start: 07-15-2024 End: 07-15-2024 Bamboo flowsheet Mary Lee PHYSICAL EDUCATION TEACHER Work Phone: [facility] Start: 06-29-2024 End: 06-29-2024 Telephone encounter Edmundo Denney DO Work Phone: [facility] Start: 06-21-2024 End: 06-21-2024 ambulatory Andrius Vytautas Bernaedraitis Facility: [place] Start: 06-07-2024 End: 06-07-2024 ambulatory Andrius Vytautas Blanquitaitis [facility] Start: 05-24-2024 End: 05-24-2024 ambulatory Andelisaus Lillian Juaresitis [facility] Start: 04-27-2024 End: 04-27-2024 Bamboo flowsheet Edmundo Denney DO Work Phone: [facility] Start: 04-27-2024 End: 04-27-2024 Bamboo flowsheet Edmundo Denney DO Work Phone: [facility] Start: 04-27-2024 End: 04-27-2024 Postop follow up visit related to original px Edmundo Denney DO Work Phone: [facility] Comment on above: Primary osteoarthrit is of right knee; Status post right knee replacement Start: 04-27-2024 End: 04-27-2024 ambulatory EDMUNDO DENNEY Not Available Start: 04-22-2024 End: 04-22-2024 Bamboo flowsheet Marcos Nichole DPM Work Phone: [facility] Start: 04-22-2024 End: 04-22-2024 Bamboo flowsheet Marcos Nichole DPM Work Phone: [facility] Start: 04-22-2024 End: 04-22-2024 Office outpatient visit 15 minutes Marcos A Tyler DPM Work Phone: [facility] Comment on above: Verruca plantaris (P rimary Dx); Foot pain, right Start: 04-22-2024 End: 04-22-2024 ambulatory MARCOS NICHOLE Not Available Start: 04-08-2024 End: 04-08-2024 Patient encounter procedure Marcos Nichole DPM Work Phone: [facility] Comment on above: Verruca plantaris (P rimary Dx); Foot pain, right Start: 04-08-2024 End: 04-08-2024 ambulatory MARCOS NICHOLE Not Available Start: 04-08-2024 End: 04-08-2024 Bamboo flowsheet Marcos Ziyad Tyler DPM Work Phone: [facility] Start: 04-08-2024 End: 04-08-2024 Bamboo flowsheet Marcos Ziyad Tyler DPM Work Phone: [facility] Start: 03-25-2024 End: 03-25-2024 Bamboo flowsheet Marcos Ziyad Brown DPM Work Phone: [facility] Start: 03-25-2024 End: 03-25-2024 Bamboo flowsheet Marcos Ziyad Brown DPM Work Phone: [facility] Start: 03-25-2024 End: 03-25-2024 Office outpatient new 30 minutes Marcos Ziyad Tyler DPM Work Phone: [facility] Comment on above: Neoplasm of uncertai n behavior of skin (Primary Dx); Verruca plantaris; Foot pain, right Start: 03-25-2024 End: 03-25-2024 ambulatory MARCOS NICHOLE Not Available Start: 03-16-2024 End: 03-16-2024 Telephone encounter Luis Eduardo Thompson PT Work Phone: [facility] Comment on above: re: fu (He called no ting Dr. Denney said he was pleased w/ his status and progress is good; no need to continue w/ PT. He said he was happy w/ his status as well and thankful for the PT he received.) Start: 03-16-2024 End: 03-16-2024 Postop follow up visit related to original px Edmundo Denney DO Work Phone: [facility] Comment on above: Primary osteoarthrit is of right knee; Status post right knee replacement Start: 03-16-2024 End: 03-16-2024 ambulatory EDMUNDO DENNEY Not Available Start: 03-15-2024 End: 03-15-2024 Bamboo flowsheet Luis Eduardo Thompson PT Work Phone: [facility] Start: 03-15-2024 End: 03-15-2024 Bamboo flowsheet Luis Eduardo Thompson PT Work Phone: [facility] Start: 03-15-2024 End: 03-15-2024 ambulatory LUIS EDUARDO THOMPSON [facility] Comment on above: Acute pain of right knee (Primary Dx); Presence of artificial knee joint, right Start: 03-12-2024 End: 03-12-2024 Bamboo flowsheet Eamonyodit Tai SHELLFISH DREDGE OPERATOR [facility] Start: 03-12-2024 End: 03-12-2024 Bamboo flowsheet Eamonyodit Tai SHELLFISH DREDGE OPERATOR [facility] Start: 03-12-2024 End: 03-12-2024 ambulatory EAMON TAI [facility] Comment on above: Acute pain of right knee (Primary Dx); Presence of artificial knee joint, right; Primary osteoarthritis of right knee Start: 03-10-2024 End: 03-10-2024 Bamboo flowsheet Buck Betancury SHELLFISH DREDGE OPERATOR [facility] Start: 03-10-2024 End: 03-10-2024 Bamboo flowsheet Buck Gypsyy SHELLFISH DREDGE OPERATOR [facility] Start: 03-10-2024 End: 03-10-2024 ambulatory BUCK ARSHAD [facility] Comment on above: Acute pain of right knee (Primary Dx); Presence of artificial knee joint, right; Primary osteoarthritis of right knee Start: 03-08-2024 End: 03-08-2024 ambulatory EAMON TAI Not Available Start: 03-05-2024 End: 03-05-2024 ambulatory BUCK ARSHAD Not Available Start: 03-01-2024 End: 03-01-2024 ambulatory EAMON TAI Not Available Start: 02-27-2024 End: 03-01-2024 ambulatory EAMON TAI Not Available Start: 02-25-2024 End: 02-25-2024 ambulatory BUCK ARSHAD Not Available Start: 02-23-2024 End: 02-23-2024 ambulatory MARICRUZRamya W[place]ORTH Not Available Start: 02-18-2024 End: 02-18-2024 ambulatory LUIS EDUARDO THOMPSON Not Available Start: 02-17-2024 End: 02-17-2024 ambulatory EDMUNDO DENNEY Not Available Start: 02-06-2024 End: 02-06-2024 Evaluation and management of inpatient TERESE Galeano [facility] Start: 02-04-2024 End: 02-05-2024 ambulatory [facility] Start: 01-27-2024 End: 01-27-2024 ambulatory [facility] Start: 01-13-2024 End: 01-13-2024 ambulatory MARY LEE Not Available Start: 01-08-2024 End: 01-08-2024 ambulatory [facility] Start: 01-08-2024 Encounter for other preprocedural examination [facility] Start: 01-08-2024 End: 01-08-2024 ambulatory EDMUNDO DENNEY Not Available Start: 11-25-2023 End: 11-25-2023 ambulatory LEWIS SOLO Not Available Start: 11-18-2023 End: 11-18-2023 ambulatory EDMUNDO DENNEY Not Available Start: 10-22-2023 End: 10-22-2023 ambulatory MARY LEE Not Available Start: 10-13-2023 End: 10-13-2023 ambulatory LORETO OJEDA Not Available Start: 09-29-2023 End: 09-29-2023 ambulatory Bogdan Calle MD Facility: [place] Start: 09-15-2023 End: 09-15-2023 ambulatory LORETO OJEDA Not Available Start: 09-10-2023 End: 09-10-2023 ambulatory MARY LEE Not Available Start: 09-08-2023 End: 09-08-2023 ambulatory Bogdan Calle MD Facility:[facility] Start: 09-01-2023 Bamboo flowsheet Loreto Strickland [place] PHYSICAL EDUCATION TEACHER Work Phone: [facility] Start: 09-01-2023 Bamboo flowsheet Loreto Strickland [place] PHYSICAL EDUCATION TEACHER Work Phone: [facility] Start: 09-01-2023 End: 09-01-2023 ambulatory LORETO Strickland [place] Not Available Start: 09-01-2023 End: 09-01-2023 Office outpatient visit 15 minutes Loreto Ojeda PHYSICAL EDUCATION TEACHER Work Phone: [facility] Comment on above: Right elbow pain (Pr imary Dx); Contusion of right elbow, subsequent encounter; Sprain of right elbow, subsequent encounter Start: 08-18-2023 End: 08-18-2023 ambulatory Bogdan Calle MD Facility: [place] Start: 08-04-2023 End: 08-04-2023 ambulatory LORETO OJEDA Not Available Start: 07-16-2023 End: 07-16-2023 ambulatory MARY LEE Not Available Start: 07-03-2023 End: 07-03-2023 ambulatory MARY LEE Not Available Start: 09-13-2020 End: 09-13-2020 [facility] [address] Start: 05-02-2020 Encounter for preprocedural laboratory examination AVILA MCKEONA [facility] Start: 04-26-2020 End: 04-27-2020 Patient encounter procedure MARY LEE Facility:[facility] Start: 02-25-2020 End: 02-26-2020 Patient encounter procedure RUGEN KENIA Facility:[facility] Encounter for preprocedural laboratory examination AVILA MCKEONA [facility] Procedures Date Procedure Procedure Detail Performing Clinician Start: 03-16-2024 Radiologic examinati on knee 1/2 views Edmundo Denney DO Work Phone: Start: 09-01-2023 Radex elbow 2 views Yudy Ojeda PHYSICAL EDUCATION TEACHER Work Phone: Start: 03-17-2015 Colonoscopy Loreto elise PHYSICAL EDUCATION TEACHER Work Phone: Plan of Treatment Date Care Activity Detail Author Start: 11-03-2026 Screening for malign ant neoplasm of colon [facility] Start: 03-17-2025 Screening for malign ant neoplasm of colon [facility] Start: 10-21-2024 Medicare Annual Well ness (AWV) Medicare Annual Wellness (AWV) [facility] Start: 08-05-2024 End: 08-05-2024 Patient encounter procedure 08/05/2024 4:00 PM EST Office Visit [facility] [address] [place] [address] Mary Lee NP [address] [place] [address] [facility] Start: 07-27-2024 End: 07-27-2024 Patient encounter procedure 07/27/2024 1:00 PM EST Office Visit [facility] [address] [place] [address] Marlon Contreras, PHYSICAL EDUCATION TEACHER [address] [place] [address] [facility] Start: 07-26-2024 End: 07-26-2024 Patient encounter procedure 07/26/2024 1:00 PM EST Office Visit [facility] [address] [place] [address] Loreto Ojeda NP [address] [place] [address] [facility] Start: 07-16-2024 Pneumococcal Vaccine : 65+ Years (2 - PCV) Pneumococcal Vaccine: 65+ Years (2 - PCV) [facility] Comment on above: Postponed from 07/30 (Patient Refused) Start: 07-16-2024 Pneumococcal Vaccine : 65+ Years (2 of 2 - PCV) Pneumococcal Vaccine: 65+ Years (2 of 2 - PCV) [facility] Comment on above: Postponed from 07/30 (Patient Refused) Start: 07-15-2024 End: 07-15-2024 Patient encounter procedure 07/15/2024 4:30 PM EST Office Visit [facility] [address] [facility] [address] [place] [address] Mary Lee, PHYSICAL EDUCATION TEACHER [address] [facility] [address] [place] [address] Arrived [facility] Comment on above: Arrived Start: 07-15-2024 End: 07-15-2025 XR Hip - left Views XR hip 4+ views left Imaging Routine Acute bilateral low back pain without sciatica Acute pain of left hip Expected: 07/15/2024, Expires: 07/15/2025 [facility] Work Phone: Comment on above: Expected: 07/15/2024 , Expires: 07/15/2025 Start: 04-27-2024 End: 04-27-2024 Patient encounter procedure [facility] Comment on above: Primary osteoarthrit is of right knee; Status post right knee replacement Start: 04-22-2024 End: 04-22-2024 Patient encounter procedure 04/22/2024 1:40 PM EDT Office Visit [facility] [address] [facility] [address] [place] [id number] Marcos Nichole, DPMaverick [address] [facility] [address] [place] [address] Verruca plantaris (Primary Dx); Foot pain, right [facility] Comment on above: Verruca plantaris (P rimary Dx); Foot pain, right Start: 04-08-2024 End: 04-08-2024 Patient encounter procedure [facility] Comment on above: Verruca plantaris (P rimary Dx); Foot pain, right Start: 03-25-2024 End: 03-25-2024 Patient encounter procedure [facility] Comment on above: Arrived Start: 03-21-2024 Influenza vaccination Influenza Vacc ine (#1) [facility] Start: 03-16-2024 End: 03-16-2024 Patient encounter procedure 03/16/2024 10:45 AM EDT Office Visit [facility] [address] [place] [address] Edmundo Denney DO [address] [place] [address] [facility] Start: 03-15-2024 End: 03-15-2024 ambulatory [facility] Comment on above: Arrived Start: 03-12-2024 End: 03-12-2024 ambulatory [facility] Comment on above: Arrived Start: 03-10-2024 End: 03-10-2024 ambulatory 03/10/2024 2:00 PM EDT Treatment [facility] [address] [place] [address] Buck Arshad, ANDREW Arrived [facility] Comment on above: Arrived Start: 01-18-2024 Influenza vaccination Influenza Vacc ine (#1) [facility] Comment on above: Postponed from 03/21 (Patient Refused) Start: 09-15-2023 End: 09-15-2023 Patient encounter procedure 09/15/2023 1:15 PM EST Office Visit [facility] [address] [place] [address] Loreto Ojeda, PHYSICAL EDUCATION TEACHER [address] [place] [address] [facility] Start: 07-04-2023 Medicare Annual Well ness (AWV) Medicare Annual Wellness (AWV) [facility] Start: 09-28-2021 Screening for malign ant neoplasm of colon FIT-DNA [facility] Start: 1950 Screening for malign ant neoplasm of colon [facility] Immunizations Immunization Date Immunization Notes Care Provider Fa adan 07-11-2022 Influenza, High-dose Seasonal, Quadrivalent, Preservative Free Loreto Ojeda PHYSICAL EDUCATION TEACHER Work Phone: [facility] 07-11-2022 influenza virus vacc ine, unspecified formulation Loreto Aplrui PHYSICAL EDUCATION TEACHER Work Phone: [facility] 07-17-2021 Influenza, High-dose Seasonal, Quadrivalent, Preservative Free Loreto Apling PHYSICAL EDUCATION TEACHER Work Phone: [facility] 07-17-2021 Pfizer Purple Cap SARS-CoV-2 Vaccination Loreto Apling PHYSICAL EDUCATION TEACHER Work Phone: [facility] 04-20-2020 influenza, high dose seasonal, preservative-free Loreto Apling PHYSICAL EDUCATION TEACHER Work Phone: [facility] 07-30-2017 influenza, injectabl e, quadrivalent, contains preservative Loreto Ojeda PHYSICAL EDUCATION TEACHER Work Phone: [facility] 07-30-2017 pneumococcal polysaccharide vaccine, 23 valent Loreto Ojeda PHYSICAL EDUCATION TEACHER Work Phone: [facility] Payers Date Payer Category Payer Private Health Insurance [facility] [id number] 2022 Unknown [id number] 2022 Unknown [id number] 2020 Unknown [id number] 2017 Medicare [id number] 1959 Medicare [id number] 1959 Private Health Insurance [id number] 1952 Unknown [id number] 2.16.840.1.501170.3.579. 2.593 1952 Unknown [id number] 2.16.840.1.375514.3.579. 2.593 1952 Unknown [id number] 2.16.840.1.346153.3.579. 2.1286 1952 Unknown [id number] 2.16.840.1.739974.3.579. 2.1286 1952 Unknown [id number] 2.16.840.1.999364.3.579. 2.1286 1952 Unknown [id number] 2.16.840.1.111567.3.579. 2.1286 1952 Unknown [id number] 2.16.840.1.157883.3.579. 2.1286 1952 Unknown [id number] 2.16.840.1.551068.3.579. 2.1286 1952 Unknown [id number] 2.16.840.1.328529.3.579. 2.1286 1952 Unknown [id number] 2.16.840.1.632653.3.579. 2.1259 1952 Unknown [id number] 2.16.840.1.872657.3.579. 2.1259 1952 Unknown [id number] 2.16.840.1.739935.3.579. 2.1259 1952 Unknown [id number] 2.16.840.1.664670.3.579. 2.1259 1952 Unknown [id number] 2.16.840.1.523969.3.579. 2.1259 1952 Unknown [id number] 2.16.840.1.933498.3.579. 2.1258 1952 Unknown [id number] 2.16.840.1.377225.3.579. 2.1258 1952 Unknown [id number] 2.16.840.1.327079.3.579. 2.1258 1952 Unknown [id number] 2.16.840.1.342883.3.579. 2.1258 1952 Unknown [id number] 2.16.840.1.309250.3.579. 2.1258 1952 Unknown [id number] 2.16.840.1.172201.3.579. 2.1258 1952 Unknown [id number] 2.16.840.1.446022.3.579. 2.1258 1952 Unknown [id number] 2.16.840.1.396919.3.579. 2.1258 1952 Unknown [id number] 2.16.840.1.162563.3.579. 2.1258 1952 Unknown [id number] 2.16.840.1.719083.3.579. 2.1258 1952 Unknown [id number] 2.16.840.1.538658.3.579. 2.1258 1952 Unknown [id number] 2.16.840.1.971201.3.579. 2.1258 1952 Unknown [id number] 2.16.840.1.016990.3.579. 2.1258 1952 Unknown [id number] 2.16.840.1.820056.3.579. 2.1258 1952 Unknown [id number] 2.16.840.1.460390.3.579. 2.1258 1952 Unknown [id number] 2.16.840.1.526391.3.579. 2.1259 1952 Unknown [id number] 2.16.840.1.576285.3.579. 2.1258 1952 Unknown [id number] 2.16.840.1.693871.3.579. 2.9 1952 Unknown [id number] 2.16.840.1.898567.3.579. 2.1258 1952 Unknown [id number] 2.16.840.1.342741.3.579. 2.1258 1952 Unknown [id number] 2.16.840.1.708286.3.579. 2.1258 1952 Unknown [id number] 2.16.840.1.764390.3.579. 2.1258 1952 Unknown [id number] 2.16.840.1.826618.3.579. 2.1258 1952 Unknown [id number] 2.16.840.1.772115.3.579. 2.1258 1952 Unknown [id number] 2.16.840.1.265167.3.579. 2.1258 1952 Unknown [id number] 2.16.840.1.074874.3.579. 2.1258 1952 Unknown [id number] 2.16.840.1.211617.3.579. 2.1258 1952 Unknown [id number] 2.16.840.1.616433.3.579. 2. 1952 Unknown [id number] 2.16.840.1.111308.3.579. 2. 1952 Unknown [id number] 2.16.840.1.936371.3.579. 2. 1952 Unknown [id number] 2.16.840.1.192777.3.579. 2. 1952 Unknown [id number] 2.16.840.1.940670.3.579. 2.196 1952 Unknown [id number] 2.16.840.1.568787.3.579. 2.196 Self-pay Self Pay [id number] Social History Date Type Detail Facility Tobacco smoking stat [facility] Unknown if ever smoked [facility] Start: 1950 Sex Assigned At Male [facility] Start: 08-04-2023 End: 01-08-2024 Tobacco smoking status [facility]VIS Ex-smoker [facility] End: 07-21-2003 History of tobacco use Current smoker [facility] End: 07-21-2003 History of tobacco use Cigarette Smoker [facility] Start: 08-04-2023 End: 01-08-2024 Tobacco use and exposure Smokeless tobacco non-user [facility] Start: 08-04-2023 End: 07-15-2024 Alcohol intake Current drinker of alcohol (finding) [facility] Start: 08-04-2023 End: 05-18-2024 History of Social function [facility] Start: 08-04-2023 End: 05-18-2024 Tobacco use panel [facility] Start: 07-03-2023 Alcohol Comment caffeine yes t ype: coffee [facility] Start: 1950 Sex Assigned At Not on file [facility] How often do you nee d to have someone help you when you read instructions, pamphlets, or other written material from your doctor or pharmacy [SILS] Rarely [facility] Work Phone: Within the last year , have you been afraid of your partner or ex-partner? No [facility] Are you now , , , , never or living with a partner? [facility] Do you feel stress - tense, restless, nervous, or anxious, or unable to sleep at night because your mind is troubled all the time - these days [OSQ] Not at all [facility] (I/We) worried wheth er (my/our) food would run out before (I/we) got money to buy more. Never true [facility] Goals Date Patient Goal Desired Activity /State Clinical Notes 09-01-2023 to 07-15-2024 Mary Lee, PHYSICAL EDUCATION TEACHER - 07/15/2024 4:30 PM ESTTelephone Encounter - Kari Hogue - 06/29/2024 3:53 PM ESTTelephone Encounter - Kari Hogue - 06/29/2024 3:53 PM EST Note Date & Type Note Facility 07-15-2024 History of Presen t illness Narrative Images from the original note were not included. Subjective Patient ID: Michael Vaughn is a 74 y.o. male who presents for lump on back. Michael presents today foera lump on his back after he fell getting out of the shower 2 weeks ago. He also states he is having lower back pain since he has fallen.Ramya would also like to go over medications Pt has not been taking his medications correctly. Current Outpatient Medications on File Prior to [...] by mouth Daily 90 tablet 3 HYDROcodone-acetaminophen (Irrigon) 5-325 MG tablet tamsulosin (Flomax) 0.4 MG 24 hr capsule TAKE 1 CAPSULE BY MOUTH DAILY 90 capsule 1 tiZANidine (Zanaflex) 4 MG tablet Take 1 tablet (4 mg) by mouth every 6 (six) hours if needed for muscle spasms 30 tablet 2 venlafaxine (Effexor) 75 MG tablet Take 1 tablet (75 mg) by mouth in the morning and 1 tablet (75 mg) in the evening and 1 tablet (75 mg) before bedtime. 300 tablet 0 No current facility-administered medications on file prior to visit. I have reviewed and reconciled the history and medication list with the patient today. No Known Allergies Social History Tobacco Use Smoking status: Former Current packs/day: 0.00 Types: Cigarettes Quit date: 2003 Years since quittin.0 Smokeless tobacco: Never Vaping Use Vaping status: Every Day Substance Use Topics Alcohol use: Yes Comment: caffeine yes type: coffee Drug use: Never Family History Problem Relation Name Age of Onset Heart disease Mother Cancer Father Prostate cancer Father Past Medical History: Diagnosis Date Aphthous ulcer Cerebrovascular accident (CMS/HCC) Depression (CMS/HCC) Dizziness Elevated blood pressure reading Hypertension (CMS/HCC) Lymphadenitis Sleep apnea Past Surgical History: Procedure Laterality Date CARPAL TUNNEL RELEASE Bilateral 2019 HERNIA REPAIR KNEE SURGERY 2001 dr denney TOTAL KNEE ARTHROPLASTY Right 02/04/2024 Dr Denney Visit Vitals Smoking Status Former Review of Systems Constitutional: Negative. HENT: Negative. Eyes: Negative. Respiratory: Negative. Cardiovascular: Negative. Gastrointestinal: Negative. Genitourinary: Negative. Musculoskeletal: Negative. Skin: Hematoma above rt eye, bruising to bilateral eyes and bruising to iliac crest Neurological: Positive for dizziness and weakness. Psychiatric/Behavioral: Negative. Objective Physical Exam Vitals reviewed. Constitutional: Appearance: Normal appearance. HENT: Head: Normocephalic. Comments: Hematoma rt side of forehead above rt eye dime sized Nose: Nose normal. Mouth/Throat: Mouth: Mucous membranes are moist. Pharynx: Oropharynx is clear. Eyes: Pupils: Pupils are equal, round, and reactive to light. Cardiovascular: Rate and Rhythm: Normal rate and regular rhythm. Pulmonary: Effort: Pulmonary effort is normal. Breath sounds: Normal breath sounds. Skin: General: Skin is warm and dry. Findings: Bruising present. Neurological: General: No focal deficit present. Mental Status: He is alert and oriented to person, place, and time. Psychiatric: Mood and Affect: Mood normal. Behavior: Behavior normal. Thought Content: Thought content normal. Judgment: Judgment normal. Assessment/Plan Diagnoses and all orders for this visit: Acute bilateral low back pain without sciatica - XR hip 4+ views left; Future Await xray results Anxiety - ALPRAZolam (Xanax) 0.25 MG tablet; Take 1 tablet (0.25 mg) by mouth 3 (three) times a day as needed for anxiety Take medication as directed. Verbalizes understanding of the need to be seen in the ER for excessive stress, elevated blood pressure or palpitations. Advised on relaxation methods to decrease anxiety and depression. Pt offers understanding of treatment plan. Hypertriglyceridemia (CMS/HCC) - carvedilol (Coreg) 12.5 MG tablet; Take 1 tablet (12.5 mg) by mouth in the morning and 1 tablet (12.5 mg) before bedtime. Await lab Muscle spasm of back - tiZANidine (Zanaflex) 4 MG tablet; Take 1 tablet (4 mg) by mouth every 6 (six) hours if needed for muscle spasms Do not take this medication and drive. Do not take this medication with the pain medication. Wait an hour between taking medication. Benign prostatic hyperplasia, unspecified whether lower urinary tract symptoms present - tamsulosin (Flomax) 0.4 MG 24 hr capsule; Take 1 capsule (0.4 mg) by mouth Daily Pt was urinating well so he stopped his medication and now he is starting to have problem urinating. He is going to restart his flomax. Acute pain of left hip - XR hip 4+ views left; Future Await xray. No follow-ups on file. documented in this encounter [facility] 06-29-2024 Telephone encount er Note Patient called in asking for Deb. Patient is not happy that he was told something different from before he left. I did let him know we have Loreto Ojeda in the [facility] office on Mondays but Marlon will not be going there anymore. I tried to get him rescheduled somewhere else. Patient is requesting a phone call back from a provider. Patient was very upset. Please advise [phone]. [facility] Zubie 06-29-2024 Miscellaneous Notes Formattin g of this note might be different from the original. Patient called in asking for Deb. Patient is not happy that he was told something different from before he left. I did let him know we have Loreto Ojeda in the [facility] office on Mondays but Marlon will not be going there anymore. I tried to get him rescheduled somewhere else. Patient is requesting a phone call back from a provider. Patient was very upset. Please advise [phone]. documented in this encounter [facility] 04-27-2024 History of Presen t illness Narrative [...] by mouth Daily 90 tablet 3 HYDROcodone-acetaminophen (Irrigon) 5-325 MG tablet tamsulosin (Flomax) 0.4 MG [...] Denney/susan Denney D.O. documented in this encounter [facility] 04-22-2024 History of Presen t illness Narrative Patient: Michael Vaughn : 1950 PCP: Avila Blackmon MD [...] Daily, Disp: 90 tablet, Rfl: 3 HYDROcodone-acetaminophen (Irrigon) 5-325 MG tablet, , Disp: , Rfl: [...] Insecurity: No Food Insecurity (02/04/2024) Received from [facility] Hunger Screening Within the past 12 months we worried whether our food would run out before we got money to buy more.: Never True Within the past 12 months the food we bought just didn't last and we didn't have money to get more.: Never True Transportation Needs: No Transportation Needs (02/04/2024) Received from [facility] PRAPARE - Transportation Lack of Transportation (Medical): No Lack of Transportation (Non-Medical): No Physical Activity: Not on file Stress: Not on file Social Connections: Not on file Intimate Partner Violence: Not on file Housing Stability: Low Risk (02/04/2024) Received from [facility] Housing Instability Are you worried or [...] Marcos Nichole DPM documented in this encounter [facility] 04-08-2024 History of Presen t illness Narrative Patient: Michael Vaughn : 1950 PCP: Avila Blackmon MD SUBJECTIVE Patient presents today for follow up of skin lesion/neoplasm of unknown origin to the right foot Pt states that previous treatment of acid tx with some improvement Pt rates pain the pain on a 1-10 scale an intensity of 5 Pt presents today for followup. Allergies: No [...] Daily, Disp: 90 tablet, Rfl: 3 HYDROcodone-acetaminophen (Irrigon) 5-325 MG tablet, , Disp: , Rfl: [...] Insecurity: No Food Insecurity (02/04/2024) Received from [facility] Hunger Screening Within the past 12 months we worried whether our food would run out before we got money to buy more.: Never True Within the past 12 months the food we bought just didn't last and we didn't have money to get more.: Never True Transportation Needs: No Transportation Needs (02/04/2024) Received from [facility] PRAPARE - Transportation Lack of Transportation (Medical): No Lack of Transportation (Non-Medical): No Physical Activity: Not on file Stress: Not on file Social Connections: Not on file Intimate Partner Violence: Not on file Housing Stability: Low Risk (02/04/2024) Received from [facility] Housing Instability Are you worried or [...] at the right sub 5th metatarsal region measuring 0.3 cm x 0.3 cm... Notable to right sub 4th metatarsal region 3 small discrete lesions that are 0.1 cm x 0.1 cm per lesion VASC: Palpable pedal pulsed b/l with warm to cool tibia to toes b/l NEURO: Gross sensation intact digits 1-10 and b/l feet ORTHO: +5/5 DF/PF/IN/EV right, +5/5 DF/PF/IN/EV left. 20 degrees inversion and 10 degrees eversion STJ b/l. Ankle ROM less than 10 degrees b/l. Positive pain on palpation to right foot lesions XRAY: US: ASSESSMENT 1. Verruca plantaris 2. Foot pain, right PLAN Application of salinocaine acid medication to lesion/lesions located at right foot Informed pt of risks and benefits of procedure including high reoccurence rate, infection, pain and consent given. Application of DSD post procedure. Marcos Nichole DPM documented in this encounter [facility] 03-25-2024 History of Presen t illness Narrative Patient: Michael Vaughn : 1950 PCP: Avila Blackmon MD SUBJECTIVE This is a 74 y.o. male that presents today for a chief complaint of painful lesions in his right foot for the past few months. He states sharp pain with ambulation and has tried [id number]-[id number]-[id number] wart treatments with negative improvement. Denies any drainage from the lesions. Allergies: No Known Allergies Past Medical History: [...] 3 carvedilol (Coreg) 12.5 MG tablet, TAKE ONE TABLET BY MOUTH TWICE A DAY, Disp: 200 tablet, Rfl: 3 hydroCHLOROthiazide (HYDRODiuril) 50 MG tablet, Take 1 tablet (50 mg) by mouth Daily, Disp: 90 tablet, Rfl: 3 HYDROcodone-acetaminophen (Irrigon) 5-325 MG tablet, , Disp: , Rfl: [...] Types: Cigarettes Quit date: 2003 Years since quittin.6 Smokeless tobacco: Never Vaping Use Vaping status: Every Day Substance and Sexual Activity Alcohol use: Yes Comment: caffeine yes type: coffee Drug use: Never Sexual activity: Not on file Other Topics Concern Not on file Social History Narrative Not on file Social Determinants of Health Financial Resource Strain: Not on file Food Insecurity: No Food Insecurity (02/04/2024) Received from [facility] Hunger Screening Within the past 12 months we worried whether our food would run out before we got money to buy more.: Never True Within the past 12 months the food we bought just didn't last and we didn't have money to get more.: Never True Transportation Needs: No Transportation Needs (02/04/2024) [facility] PRAPARE - Transportation Lack of Transportation (Medical): No Lack of Transportation (Non-Medical): No Physical Activity: Not on file Stress: Not on file Social Connections: Not on file Intimate Partner Violence: Not on file Housing Stability: Low Risk (02/04/2024) [facility] Housing Instability Are you worried or concerned [...] at the right sub 5th metatarsal region measuring 0.3 cm x 0.3 cm... Notable to right sub 4th metatarsal region 3 small discrete lesions that are 0.1 cm x 0.1 cm per lesion VASC: Palpable pedal pulsed b/l with warm to cool tibia to toes b/l NEURO: Gross sensation intact digits 1-10 and b/l feet ORTHO: +5/5 DF/PF/IN/EV right, +5/5 DF/PF/IN/EV left. 20 degrees inversion and 10 degrees eversion STJ b/l. Ankle ROM less than 10 degrees b/l. Positive pain on palpation to right foot lesion XRAY: US: ASSESSMENT 1. Neoplasm of uncertain behavior of skin 2. Verruca plantaris 3. Foot pain, right PLAN Discussed condition in detail with patient today and discussed conservative treatments and possible excisional biopsy of lesion in the future for pathological diagnosis of specimen. Patient may take [id number] NSAID p.r.n. for pain Application of salinocaine acid medication to lesion/lesions located at right foot Informed pt of risks and benefits of procedure including high reoccurence rate, infection, pain and consent given. Application of DSD post procedure. Marcos Nichole DPM documented in this encounter [facility] 03-16-2024 History of Presen t illness Narrative Images from the original note were not included. HISTORY OF PRESENT ILLNESS: Michael Vaughn is an 74 y.o. @ male. Follow up RT TKA RT knee: 6 weeks s/p RT TKA (02/04/24) Presents FWB without assistance x 3 weeks. He is doing well, he is feeling very good. Denies pain today. Not taking anything for pain. Denies N/T. Scar healing well. He is going to OP PT. Pt is very happy with outcome so [...] 3 carvedilol (Coreg) 12.5 MG tablet TAKE ONE TABLET BY MOUTH TWICE A DAY 200 tablet 3 hydroCHLOROthiazide (HYDRODiuril) 50 MG tablet Take 1 tablet (50 mg) by mouth Daily 90 tablet 3 HYDROcodone-acetaminophen (Irrigon) 5-325 MG tablet tamsulosin (Flomax) 0.4 MG [...] Former PHYSICAL EXAM: Ortho Exam RIGHT KNEE Incision healing nicely Ambulating without assisted devices ROM 0-100 IMAGING: XR knee 1 or 2 views right Imaging Result: March 16, 2024 x-rays AP and lateral of the right knee demonstrate right total knee replacement in good position alignment without signs of loosening fracture or failure. Impression: Stable appearance of right total knee replacement Ever Denney D.O. ASSESSMENT: ICD-10-CM 1. Primary osteoarthritis of right knee M17.11 XR knee 1 or 2 views right 2. Status post right knee replacement Z96.651 PLAN: I discussed with the patient the general [...] may change on this in the future. Follow up in 6 weeks, any issues/concerns follow up sooner. Dr. Denney obtained history and examined the patient, I am acting as scribe for Dr. Denney/susan Denney D.O. documented in this encounter [facility] 03-15-2024 History of Presen t illness Narrative Physical Therapy Treatment Visit Patient Name: Michael Vaughn Today's Date: 03/15/2024 Encounter Diagnoses Name Primary? Acute pain of right knee Yes Presence of artificial knee joint, right Visit number: 10 Timed Code Treatment Minutes: 53 minutes Total Treatment Time: 63 minutes Time In: 1350 Time Out: 1453 History: Pt is a 73 year old male s/p R TKA. DOS 02/04/[address] Denney. Pt reports he was very painful post-op but doing better now. Eliane out yesterday. For pain: Tylenol, Oxcotin when bad - usually only uses at night to help sleep. Sleeping well. Walking with quad cane, sometimes without the cane at home but has things nearby to hold onto. Precautions: s/p R TKA Subjective: Pt. Reports he is pleased with his progress. No limitations with household activities. Pain: 07/30 anterior R knee Objective: PT Evaluation (02/18/2024) Gait: AMB with small based quad cane in R hand; pt feels unsteady w/ cane in L hand and prefers to continue using it in the right. Decreased stance time on R, antalgic gait. Palpation/swelling: moderate edema distal thigh to ankle- wearing JANET hose; TTP at ankle, no TTP around knee. Skin: incision intact, several steri-strips superior and inferior aspect of incision MMT R knee 3+/5 AROM R knee: lacking 15 extension to 100 flexion PROM R knee: 10 extension to 105 flexion Treatment: Manual Therapy: (0 minutes) delivered manual ther STM and retro grade massage for edema reduction; PROM R knee into knee flexion and extension to increase joint mobility. Gentle patellar mobs to improved ROM. Therapeutic Exercise: (30 minutes supervised ) Pt guided through open and closed chain ther ex to improve R knee joint strength and ROM; exercises in grid Bike (0 mins unsupervised) for warm up seat set to hills level 9 Therapeutic Activity:(23 minutes supervised) Exercises to improve dynamic activities, functional tasks, functional mobility to return to prior activity level Gait Training: (prn) Amb around clinic with and without quad cane, SBA. Pt demo good swing through, VC for heel/toe, good follow through. Neuromuscular re-education: Balance Training, Muscle Facilitation, Dynamic Stability, Core Stabilization, and Blood Flow Restriction Training (BFRT) Modalities: (0 minutes) Deferred this modality following this session. CP to R knee in supine post session for soreness and edema Assessment: Pt has participated in 10 outpatient PT session since start of care on 02/18/2024 post right TKA performed on 02-04-[address] Denney. Amb with no AD with mild decreased mobility, mild antalgic. R knee demos mod edema PROM in supine demos 2 deg from full extension,115 deg flexion. Educated the importance of performing extension and flex static stretching, HEP, voiced understanding. Pt. Demonstrates 4+/5 right knee strength. Normalized gait pattern with no assistive device. Pt. Demonstrates 85% improvement toward PT goals and recommend discharge with home program. Follow up with Dr Denney 03-16-[address] Denney recommendation. I hereby deem this POC medically necessary. Please sign below. Date: documented in this encounter [facility] 09-01-2023 History of Presen t illness Narrative Subjective Patient ID: Michael Vaughn is a 73 y.o. male. RT Elbow *cast off and xrays Pt is RT handed Pt fell 5 weeks 2 days ago (DOI 07/26/23) and landed on Rt elbow. Pt was placed in a long posterior splint and prescribed Irrigon. Presents in LAC. Removed today. Denies pain. [...] with bruce therapy, documented in this encounter [facility] Healthcare Evaluation note Diagnosis Right elbow pain- Primary Pain in joint, upper arm Contusion of right elbow, subsequent encounter Sprain of right elbow, subsequent encounter [facility] Diagnosis Verruca plantaris- Primary Plantar wart Foot pain, right Pain in soft tissues of limb [facility] Diagnosis Primary osteoarthritis of right knee Status post right knee replacement [facility] Diagnosis Acute pain of right knee- Primary Presence of artificial knee joint, right Primary osteoarthritis of right knee Primary osteoarthritis of right knee Status post right knee replacement [facility] Diagnosis Acute pain of right knee- Primary Presence of artificial knee joint, right Primary osteoarthritis of right knee [facility] Diagnosis Acute pain of right knee- Primary Presence of artificial knee joint, right Primary osteoarthritis of right knee Status post right knee replacement [facility] Diagnosis Primary osteoarthritis of right knee Status post right knee replacement [facility] Diagnosis Neoplasm of uncertain behavior of skin- Primary Verruca plantaris Plantar wart Foot pain, right Pain in soft tissues of limb [facility] Diagnosis Acute bilateral low back pain without sciatica- Primary Anxiety Anxiety state, unspecified Hypertriglyceridemia (CMS/HCC) Pure hyperglyceridemia Muscle spasm of back Benign prostatic hyperplasia, unspecified whether lower urinary tract symptoms present Acute pain of left hip documented in this encounter [facility] Summary [...] and content) DATE CREATED AUTHOR 05/03/2020 [facility] DATE CREATED AUTHOR AUTHOR'S ORGANIZ ATION 02/07/2024 [facility] DATE CREATED AUTHOR AUTHOR'S ORGANIZ ATION 04/29/2024 [facility] EPIC DATE CREATED AUTHOR AUTHOR'S ORGANIZ ATION 06/25/2024 [facility] Care Teams (unrecognized sec tion and content) Cargo Trimmer Relationship Specialty Start Date End Date Mary Lee PHYSICAL EDUCATION TEACHER [address] [facility] [address] [place] [address] PCP - ACO Reach 12/12/22 Cargo Trimmer Relationship Specialty Start Date End Date Mary Lee PHYSICAL EDUCATION TEACHER [address] [facility] [address] [place] [address] PCP - ACO Reach 12/12/22 Cargo Trimmer Relationship Specialty Start Date End Date Avila Blackmon MD [address] [facility] [address] [place] [address] PCP - General Family Medicine 09/15/23 Mary Lee PHYSICAL EDUCATION TEACHER [address] [facility] [address] [place] [address] PCP - ACO Reach 11/19/23 Cargo Trimmer Relationship Specialty Start Date End Date Avila Blackmon MD [address] [facility] [address] [place] [address] PCP - General Family Medicine 09/15/23 Mary Lee, PHYSICAL EDUCATION TEACHER [address] [facility] [address] [place] [address] PCP - ACO Reach 11/19/23 Cargo Trimmer Relationship Specialty Start Date End Date Avila Blackmon MD [address] [facility] [address] [place] [address] PCP - General Family Medicine 09/15/23 Mary Lee, PHYSICAL EDUCATION TEACHER [address] [facility] [address] [place] [address] PCP - ACO Reach 11/19/23 Cargo Trimmer Relationship Specialty Start Date End Date Avila Blackmon MD [address] [facility] [address] [place] [address] PCP - General Family Medicine 09/15/23 Mary Lee, PHYSICAL EDUCATION TEACHER [address] [facility] [address] [place] [address] PCP - ACO Reach 11/19/23 Cargo Trimmer Relationship Specialty Start Date End Date Avila Blackmon MD [address] [facility] [address] [place] [address] PCP - General Family Medicine 09/15/23 Mary Lee, PHYSICAL EDUCATION TEACHER [address] [facility] [address] [place] [address] PCP - ACO Reach 11/19/23FridayGabriela LPN [address] [place] [address] Licensed Practical Nurse Family Medicine 05/06/24 Cargo Trimmer Relationship Specialty Start Date End Date Avila Blackmon MD [address] [facility] [address] [place] [address] PCP - General Family Medicine 09/15/23 Mary Lee, PHYSICAL EDUCATION TEACHER [address] [facility] [address] [place] [address] PCP - ACO Reach 11/19/23 Cargo Trimmer Relationship Specialty Start Date End Date Avila Blackmon MD [address] [facility] [address] [place] [address] PCP - General Family Medicine 09/15/23 Mary Lee, PHYSICAL EDUCATION TEACHER [address] [facility] [address] [place] [address] PCP - ACO Reach 11/19/23 Cargo Trimmer Relationship Specialty Start Date End Date Avila Blackmon MD [address] [facility] [address] [place] [address] PCP - General Family Medicine 09/15/23 Mary Lee, PHYSICAL EDUCATION TEACHER [address] [facility] [address] [place] [address] PCP - ACO Reach 11/19/23 Cargo Trimmer Relationship Specialty Start Date End Date Avila Blackmon MD [address] [facility] [address] [place] [address] PCP - General Family Medicine 09/15/23 Mary Lee, PHYSICAL EDUCATION TEACHER [address] [facility] [address] [place] [address] PCP - ACO Reach 11/19/23 Cargo Trimmer Relationship Specialty Start Date End Date Avila Blackmon MD [address] [facility] [address] [place] [address] PCP - General Family Medicine 09/15/23 Mary Lee, PHYSICAL EDUCATION TEACHER [address] [facility] [address] [place] [address] PCP - ACO Reach 11/19/23 Cargo Trimmer Relationship Specialty Start Date End Date Avila Blackmon MD [address] [facility] [address] [place] [address] PCP - General Family Medicine 09/15/23 Mary Lee, PHYSICAL EDUCATION TEACHER [address] [facility] [address] [place] [address] PCP - ACO Reach 11/19/23 Cargo Trimmer Relationship Specialty Start Date End Date Avila Blackmon MD [address] [facility] [address] [place] [address] PCP - General Family Medicine 09/15/23 Mary Lee, PHYSICAL EDUCATION TEACHER [address] [facility] [address] [place] [address] PCP - ACO Reach 11/19/23 Cargo Trimmer Relationship Specialty Start Date End Date Avila Blackmon MD [address] [facility] [address] [place] [address] PCP - General Family Medicine 09/15/23 Mary Lee, PHYSICAL EDUCATION TEACHER [address] [facility] [address] [place] [address] PCP - ACO Reach 11/19/23Friday, AVRIL Ochoa [address] [place] [address] Licensed Practical Nurse Family Medicine 05/06/24 Reason for Visit (unrecogniz ed section and content) Reason Comments Follow-up Rt lesions Reason Comments Follow-up Specialty Diagnoses / Procedures Referred By Contac t Referred To Contact Physical Therapy Diagnoses Presence of artificial knee joint, right Procedures SD OFFICE/OUTPATIENT NEW HIGH MDM 60 MINUTES Edmundo Denney, DO [address] [facility] [address] [place] [address] Luis Eduardo Thompson, PT [address] [place] [address] Referral ID Status Reason Start Date Expiration Date Visits Requested Visits Authorized [id number] Authorized Specialty Services Required 02/04/2024 08/02/2024 18 18 Reason Onset Date Comments re: fu 03/16/[address] Denney said he was pleased w/ his status and progress is good; no need to continue w/ PT. He said he was happy w/ his status as well and thankful for the PT he received. Reason Comments Plantar Warts Left ft lesions Reason Comments Follow-up LESIONS FOR RECORDS PERTAINING TO PATIENTS WHO ARE [...] BE BASED ON THE PRIMARY CLINICAL RECORDS. [employer] provides no warranty or guarantee of the accuracy or completeness of information in this document.
--- NOTE | 2024-07-16 11:16 | CT_ITS ---
The [address] [address] Patient Name: ANGELIC CABRERA MRN: [id number] date: 1950 Sex: M Assigned Patient Location: ER Current Patient Location: ER Accession/Order Number: [id number] Exam Date: 07/16/2024 11:33 Report Date: 07/16/2024 12:22 At the request of: MAHESH AZUL Procedure: CT facial bones wo con EXAMINATION: CT head/brain wo con, CT facial bones wo con HISTORY: fall COMPARISON: CT head 07/31/2023 TECHNIQUE: Axial CT images were obtained without IV contrast. Dose reduction techniques were achieved by using automated exposure control and/or adjustment of mA and/or kV according to patient size and/or use of iterative reconstruction technique. FINDINGS: BRAIN: Stable old lacunar infarction versus prominent perivascular space within left basal ganglia. No edema, hemorrhage, mass, acute infarction, or inappropriate atrophy. CSF SPACES: No hydrocephalus, subarachnoid hemorrhage, or mass. Appropriate for age. SKULL: No fracture, mass, or other significant visible lesion. SINUSES: No significant mucosal thickening or fluid. ORBITS: No appreciable abnormality. FACIAL BONES: No fracture or dislocation. OTHER: Mild subcutaneous bruising versus edema overlying the lower right forehead and upper lateral left forehead. CT/CT facial bones wo con IMPRESSION: 1. No intracranial hemorrhage or acute abnormality of the brain. Stable chronic changes. 2. No fracture of the calvarium or facial bones. 3. Mild subcutaneous bruising versus edema overlying the forehead. Electronically authenticated by: EMMA FRYE Date: 07/16/2024 12:22
--- NOTE | 2024-07-16 11:16 | CT_ITS ---
[place] [id number] Patient Name: ANGELIC CABRERA MRN: [id number] date: 1950 Sex: M Assigned Patient Location: ER Current Patient Location: Accession/Order Number: [id number] Exam Date: 07/16/2024 11:33 Report Date: 07/16/2024 12:29 At the request of: MAHESH AZUL Procedure: CT pelvis wo con EXAMINATION: CT pelvis wo con HISTORY: fall COMPARISON: No relevant comparison available. TECHNIQUE: Axial, Coronal, and Sagittal images were obtained without and/or with IV contrast as indicated by examination type. Dose reduction techniques were achieved by using automated exposure control and/or adjustment of mA and/or kV according to patient size and/or use of iterative reconstruction technique FINDINGS: BOWEL: No abnormality of the visible bowl. LYMPH NODES: No adenopathy. URINARY BLADDER: No visible focal wall thickening, lesion, or calculus. PELVIC ORGANS: No visible mass. Pelvic organs appropriate for patient age. ANTERIOR WALL: No hernia. BONES: Avascular necrosis involving the weightbearing surfaces of the femoral heads bilaterally. Prominent degenerative osteophytes and subchondral cysts within the roof the acetabulum bilaterally. Marked degenerative disc disease L4-5 and L5-S1 and moderate degenerative facet arthropathy. OTHER: Negative. CT/CT pelvis wo con IMPRESSION: 1. No appreciable acute abnormality. 2. Degenerative changes of the lumbar spine and hip joints. 3. Avascular necrosis of the femoral heads without cortical disruption or flattening of the femoral heads. Electronically authenticated by: EMMA FRYE Date: 07/16/2024 12:29
--- NOTE | 2024-07-16 11:16 | CT_ITS ---
The [address] [address] Patient Name: ANGELIC CABRERA MRN: [id number] date: 1950 Sex: M Assigned Patient Location: ER Current Patient Location: ER Accession/Order Number: [id number] Exam Date: 07/16/2024 11:33 Report Date: 07/16/2024 12:22 At the request of: MAHESH AZUL Procedure: CT head/brain wo con EXAMINATION: CT head/brain wo con, CT facial bones wo con HISTORY: fall COMPARISON: CT head 07/31/2023 TECHNIQUE: Axial CT images were obtained without IV contrast. Dose reduction techniques were achieved by using automated exposure control and/or adjustment of mA and/or kV according to patient size and/or use of iterative reconstruction technique. FINDINGS: BRAIN: Stable old lacunar infarction versus prominent perivascular space within left basal ganglia. No edema, hemorrhage, mass, acute infarction, or inappropriate atrophy. CSF SPACES: No hydrocephalus, subarachnoid hemorrhage, or mass. Appropriate for age. SKULL: No fracture, mass, or other significant visible lesion. SINUSES: No significant mucosal thickening or fluid. ORBITS: No appreciable abnormality. FACIAL BONES: No fracture or dislocation. OTHER: Mild subcutaneous bruising versus edema overlying the lower right forehead and upper lateral left forehead. CT/CT head/brain wo con IMPRESSION: 1. No intracranial hemorrhage or acute abnormality of the brain. Stable chronic changes. 2. No fracture of the calvarium or facial bones. 3. Mild subcutaneous bruising versus edema overlying the forehead. Electronically authenticated by: EMMA FRYE Date: 07/16/2024 12:22
--- NOTE | 2024-07-16 11:16 | CT_ITS ---
[address] [address] Patient Name: ANGELIC CABRERA MRN: [id number] date: 1950 Sex: M Assigned Patient Location: ER Current Patient Location: ER Accession/Order Number: [id number] Exam Date: 07/16/2024 11:33 Report Date: 07/16/2024 12:27 At the request of: MAHESH AZUL Procedure: CT cervical spine wo con EXAMINATION: CT cervical spine wo con HISTORY: fall COMPARISON: No relevant comparison available. TECHNIQUE: Axial, Coronal, and Sagittal images were created without IV contrast. Dose reduction techniques were achieved by using automated exposure control and/or adjustment of mA and/or kV according to patient size and/or use of iterative reconstruction technique. FINDINGS: VERTEBRAL BODIES: No fracture spondylolisthesis. Straightening of the normal lordotic curvature which may be due to positioning or muscle spasm. FACET JOINTS: Multilevel moderate to marked degenerative facet arthropathy resulting in bone encroachment on the neural foramen. No disruption or abnormal widening. DISCS: Marked narrowing C5-6 and C6-C7 with posterior disc osteophyte complexes causing central canal and foraminal stenosis. CENTRAL CANAL: No evidence of hemorrhage. PARASPINAL AREA: No visible mass. CT/CT cervical spine wo con IMPRESSION: 1. No appreciable acute abnormality. 2. Moderate-marked degenerative changes. Electronically authenticated by: EMMA FRYE Date: 07/16/2024 12:27
--- NOTE | 2024-07-16 11:17 | ECG_ITS ---
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
[2024-07-16 11:36] LABS: Basophils Absolute Auto 0.1 10^3/uL (0.0-0.1); Eosinophils Absolute Auto 0.3 10^3/uL (0.0-0.7); Eosinophils Percent Auto 4.4 % (0.9-7.0); Hematocrit 35.5 % (42.0-54.0); Hemoglobin 13.1 g/dL (14.0-18.0); Immature Granulocytes Abs Auto 0.02 10^3/uL (0.00-0.03); Immature Granulocytes Pct Auto 0.3 % (0.0-0.5); Lymphocytes Absolute Auto 1.8 10^3/uL (1.2-3.8); Lymphocytes Percent Auto 30.8 % (20.5-60.0); Mean Corpuscular HGB Conc 36.9 g/dL (29.9-35.2); Mean Corpuscular Hemoglobin 33.9 pg (25.9-34.0); Mean Platelet Volume 8.5 fL (9.5-13.5); Monocytes Percent Auto 16.7 % (1.7-12.0); Neutrophils Absolute Auto 2.8 10^3/uL (1.4-6.5); Neutrophils Percent Auto 46.8 % (43.0-75.0); Platelet Count 249 10^3/uL (150-450); Red Blood Count 3.86 10^6/uL (4.70-6.10); Red Cell Distribution Width 13.5 % (11.0-15.0); White Blood Count 5.9 10^3/uL (4.0-11.0)
[2024-07-16 11:55] LABS: Alanine Aminotransferase 18 U/L (16-63); Albumin Globulin Ratio 1.2; Albumin Level 3.6 g/dL (3.4-5.0); Alkaline Phosphatase 63 U/L (46-116); Anion Gap 11.5; Aspartate Amino Transferase 28 U/L (15-37); BUN Creatinine Ratio 13.2; Bilirubin Total 0.7 mg/dL (0.2-1.0); Calcium 8.5 mg/dL (8.5-10.1); Carbon Dioxide 28.3 mmol/L (21.0-32.0); Chloride 85 mmol/L (98-107); Estimated GFR (African America >60 (>=60 mL/min/1.73m^2); Estimated GFR (Non-African Ame >60 (>=60 mL/min/1.73m^2); Glucose 94 mg/dL (74-106); Potassium 3.8 mmol/L (3.5-5.1); Total Protein 6.6 g/dL (6.4-8.2)
[2024-07-16 11:59] LABS: Sodium 121 mmol/L (136-145)
[2024-07-16] MEDS: 0.9 % SODIUM CHLORIDE 1,000 ML 1000 ML IV (12:23)
[2024-07-16] MEDS: KETOROLAC TROMETHAMINE 30 MG/ML VIAL 15 MG IVP (13:00)
--- NOTE | 2024-07-16 13:21 | ED.FALL1 ---
HPI HPI - Fall General Chief Complaint: Fall Stated Complaint: FALL Time Seen by Provider: 07/16/24 11:07 Source: patient Mode of arrival: Wheelchair Limitations: no limitations History of Present Illness HPI Narrative: The patient have a history of multiple falls over the last few weeks, he had 3 falls in the last of the month this morning, he mentioned that they are not preceded by any dizziness but he mentioned that he always trips and falls All the falls happened in the monitor most of the time when he trying to go to the bathroom at night and he is standing up all of a sudden. The patient mentioned that he hit his head with the floor mostly his face downward He denies any loss of consciousness he presented to be evaluated by his primary care doctor and he was supposed to get an x-ray as an outpatient for his hip The patient is complaining of left hip pain in addition to had multiple contusion to the face Related Data Home Medications ?Medication ?Instructions ?Recorded ?Confirmed buspirone 15 mg tablet 15 mg PO BID 07/31/23 07/16/24 carvedilol 6.25 mg tablet 6.25 mg PO BID 07/31/23 07/16/24 hydrochlorothiazide 25 mg tablet 25 mg PO DAILY 07/31/23 07/16/24 venlafaxine 37.5 mg 37.5 mg PO DAILY 07/31/23 07/16/24 capsule,extended release 24 hr (Effexor XR) alprazolam 0.25 mg tablet 0.125 mg PO TID 07/16/24 07/16/24 tamsulosin 0.4 mg capsule 0.4 mg PO DAILY 07/16/24 07/16/24 Previous Rx's ?Medication ?Instructions ?Recorded hydrocodone 5 mg-acetaminophen 325 1 tab PO Q6H PRN pain #12 tabs 07/31/23 mg tablet tizanidine 4 mg capsule 4 mg PO BID PRN muscle spasticity 09/03/23 #60 caps naloxone 4 mg/actuation nasal 4 mg intranasal Q3M PRN opioid 09/17/23 spray (Narcan) overdose #1 ea Allergies Allergy/AdvReac Type Severity Reaction Status Date / Time No Known Drug Allergies Allergy Verified 06/21/24 09:32 Opioid HPI Opioid Management Most Recent Pain and Opioid Data: Last Pain Scale 8 07/16/24 13:00 07/16/24 Last MAR Pain Assessment 07/16/24 13:00 Review of Systems ROS Status of ROS 10 or more systems reviewed and unremarkable except as noted in history and below [facility] Medical History (Updated 07/16/24 @ 13:48 by Marisa Arthur MD) Anxiety ?F41.9 - Anxiety disorder, unspecified (ICD-10) Smoker ?F17.200 - Nicotine dependence, unspecified, uncomplicated (ICD-10) Lymphadenitis ?I88.9 - Nonspecific lymphadenitis, unspecified (ICD-10) Sleep apnea ?G47.30 - Sleep apnea, unspecified (ICD-10) Depression ?F32.A - Depression, unspecified (ICD-10) CVA (cerebral vascular accident) ?I63.9 - Cerebral infarction, unspecified (ICD-10) Ulcer Hypertension ?I10 - Essential (primary) hypertension (ICD-10) Surgical History H/O knee surgery ?Z98.890 - Other specified postprocedural states (ICD-10) S/P hernia repair ?Z98.890 - Other specified postprocedural states (ICD-10) ?Z87.19 - Personal history of other diseases of the digestive system (ICD-10) H/O carpal tunnel repair ?Z98.890 - Other specified postprocedural states (ICD-10) Social History Little interest or pleasure in doing things: not at all Feeling down, depressed, or hopeless: not at all Exam Narrative Exam Narrative: Nurses notes and vital signs reviewed and patient is not hypoxic. General: Well-appearing and in no apparent distress. Skin: Warm, dry, no pallor noted. No rash. Head: Normocephalic, the patient have a bruise to the right side of the face in addition to 2 black eyes and some contusion to the upper eyelids on the left side , the patient have no open wounds Neck: Supple, non-tender. Eye: Pupils are equal, round and EOMI. No scleral icterus. Ears, Nose, Mouth, and Throat: TM are clear, no nasal mucosal hypertrophy. Oral mucosa is moist, no posterior oropharynx erythema, uvula is mid-line Cardiovascular: Regular Rate and Rhythm without murmur, gallop or rub. Respiratory: No accessory muscle use or respiratory distress. Lungs are clear to auscultation, no wheezing, rales or rhonchi Chest Wall: no tenderness Back: No midline thoracic or lumbar vertebral tenderness. No CVA tenderness Musculoskeletal: normal ROM, there is contusion to the left hip in addition to the left iliac crest with tenderness to palpation but the patient still have full range of movement of the hip GI: Abdomen is soft, non-distended. Normal bowel sounds. No masses appreciated. No tenderness to palpation. No rebound, guarding, or rigidity noted. Neurological: A&O x4. No cranial nerve dysfunction observed. No truncal ataxia. Moves all extremities. Sensation intact. Psychiatric: Cooperative and interactive. Normal mood and affect. Constitutional Vital Signs, click to edit/add: Last Vital Signs Temp 97.4 F L 07/16/24 11:00 Pulse 64 07/16/24 11:00 Resp 18 07/16/24 11:00 BP 133/79 07/16/24 11:00 Pulse Ox 98 07/16/24 11:00 O2 Del Method Room Air 07/16/24 11:00 Course Vital Signs Vital signs: Vital Signs Temperature 97.4 F L 07/16/24 11:00 Pulse Rate 64 07/16/24 11:00 Respiratory Rate 18 07/16/24 11:00 Blood Pressure 133/79 07/16/24 11:00 Pulse Oximetry 98 07/16/24 11:00 Oxygen Delivery Method Room Air 07/16/24 11:00 Temperature 97.4 F L 07/16/24 11:00 Pulse Rate 64 07/16/24 11:00 Respiratory Rate 18 07/16/24 11:00 Blood Pressure 133/79 07/16/24 11:00 Pulse Oximetry 98 07/16/24 11:00 Oxygen Delivery Method Room Air 07/16/24 11:00 MDM - Fall MDM Narrative Medical decision making narrative: The patient is EKG in the ER showing sinus rhythm with a heart rate of 57 CBC and chemistry shows some hyponatremia with sodium 121 and low chloride The patient right now could be secondary to chronic hyponatremia as well although the patient symptoms right now he does not show any weakness CT of the cervical spine showed no acute pathology but I did explain to the patient need to follow-up with neurosurgery as outpatient as well CT of the head as well as CT of the pelvis showed that the patient have necrosis of the femoral head on the left side Patient case was discussed with Dr. Jaramillo from orthopedic service and he will just follow-up with him in outpatient for possible hip replacement The patient sodium was repeated after being provided 1 L of fluid and it is responding with treatment to sodium 123 the patient will just continue p.o. hydration and follow-up with his primary care I tried calling the office of the primary care to assign an outpatient visit but the office is closed today I did explain to the patient need to drink 64 ounces of water daily and follow-up with the primary care on Friday to repeat the blood workup in case of any new symptom or he could not get the blood workup done he will come back to the ER Lab Data Labs: Lab Results 07/16/24 07/16/24 Range/Units 11:31 13:20 WBC 5.9 (4.0-11.0) 10^3/uL RBC 3.86 L (4.70-6.10) 10^6/uL Hgb 13.1 L (14.0-18.0) g/dL Hct 35.5 L (42.0-54.0) % MCV 92.0 (80.0-94.0) fL MCH 33.9 (25.9-34.0) pg MCHC 36.9 H (29.9-35.2) g/dL RDW 13.5 (11.0-15.0) % Plt Count 249 (150-450) 10^3/uL MPV 8.5 L (9.5-13.5) fL Neut % (Auto) 46.8 (43.0-75.0) % Lymph % (Auto) 30.8 (20.5-60.0) % Armstrong % (Auto) 16.7 H (1.7-12.0) % Eos % (Auto) 4.4 (0.9-7.0) % Baso % (Auto) 1.0 (0.2-2.0) % Neut # (Auto) 2.8 (1.4-6.5) 10^3/uL Lymph # (Auto) 1.8 (1.2-3.8) 10^3/uL Armstrong # (Auto) 1.0 H (0.3-0.8) 10^3/uL Eos # (Auto) 0.3 (0.0-0.7) 10^3/uL Baso # (Auto) 0.1 (0.0-0.1) 10^3/uL Abs Immat Gran (auto) 0.02 (0.00-0.03) 10^3/uL Imm/Tot Granulo (auto) 0.3 (0.0-0.5) % Sodium 121 L* 123 L* (136-145) mmol/L Potassium 3.8 (3.5-5.1) mmol/L Chloride 85 L 88 L (98-107) mmol/L Carbon Dioxide 28.3 (21.0-32.0) mmol/L Anion Gap 11.5 BUN 10.0 (7.0-18.0) mg/dL Creatinine 0.76 (0.70-1.30) mg/dL Est GFR ( Amer) >60 (>=60 mL/min/1.73m^2) Est GFR (Non-Af Amer) >60 (>=60 mL/min/1.73m^2) BUN/Creatinine Ratio 13.2 Glucose 94 (74-106) mg/dL Calcium 8.5 (8.5-10.1) mg/dL Total Bilirubin 0.7 (0.2-1.0) mg/dL AST 28 (15-37) U/L ALT 18 (16-63) U/L Alkaline Phosphatase 63 (46-116) U/L Total Protein 6.6 (6.4-8.2) g/dL Albumin 3.6 (3.4-5.0) g/dL Globulin 3.0 g/dL Albumin/Globulin Ratio 1.2 Discharge Plan Discharge Chief Complaint: Fall Clinical Impression: Multiple falls, Hyponatremia, Contusion of face, Avascular necrosis of bone of hip Patient Disposition: Home, Self-Care Time of Disposition Decision: 13:46 Condition: Good Prescriptions / Home Meds: No Action venlafaxine [Effexor XR] 37.5 mg capsule,extended release 24hr 37.5 mg PO DAILY carvedilol 6.25 mg tablet 6.25 mg PO BID Rx Instructions: must administer with a meal/food buspirone 15 mg tablet 15 mg PO BID hydrochlorothiazide 25 mg tablet 25 mg PO DAILY hydrocodone-acetaminophen 5-325 mg tablet 1 tab PO Q6H PRN (Reason: pain) Qty: 12 0RF Rx Instructions: DX: M25.521 naloxone [Narcan] 4 mg/actuation spray,non-aerosol 4 mg intranasal Q3M PRN (Reason: opioid overdose) Qty: 1 0RF Rx Instructions: spray 1 dose into ONE nostril; alternate nostrils w each dose until help arrives tizanidine 4 mg capsule 4 mg PO BID PRN (Reason: muscle spasticity) Qty: 60 2RF tamsulosin 0.4 mg capsule 0.4 mg PO DAILY alprazolam 0.25 mg tablet 0.125 mg PO TID Print Language: Irish Instructions: Hyponatremia (ED) Referrals: Collin Taylor MD [Physician] - 1 week (Orthopedic : [facility] Address: [address] [place] [address], [address] [facility] [place] [address] ) ZAYRA AQUINO [Primary Care Provider] - As soon as possible (please follow up Friday for repeated sodium level )
[2024-07-16 13:36] LABS: Chloride 88 mmol/L (98-107)
[2024-07-16 13:38] LABS: Sodium 123 mmol/L (136-145)
== END 2024-07-16 14:01 | disposition home or self-care (01) ==
PROVIDERS: Emergency Provider Emergency Medicine; PCP Family Medicine
DX: E87.1 Hypo-osmolality and hyponatremia (principal); S00.83XA Contusion of other part of head, initial encounter; W19.XXXA Unspecified fall, initial encounter; Z91.81 History of falling; M87.852 Other osteonecrosis, left femur; M87.851 Other osteonecrosis, right femur
CPT/HCPCS: 36415; 70450; 70486; 72125; 72192; 80053; 82435; 84295; 85025; 93005; 96374; 99285; J1885

== ENCOUNTER 2024-11-29 12:37 | Outpatient (REF) | payer MEDICARE, OTHER, SELFPAY ==
[2024-11-29 13:24] LABS: Anion Gap 9.5; BUN Creatinine Ratio 24.5; Calcium 8.5 mg/dL (8.5-10.1); Carbon Dioxide 33.7 mmol/L (21.0-32.0); Chloride 98 mmol/L (98-107); Estimated GFR (African America >60 (>=60 mL/min/1.73m^2); Estimated GFR (Non-African Ame >60 (>=60 mL/min/1.73m^2); Glucose 125 mg/dL (74-106); Potassium 4.2 mmol/L (3.5-5.1); Sodium 137 mmol/L (136-145)
== END 2024-11-29 12:38 | disposition home or self-care (01) ==
LOC: LAB 12:37
PROVIDERS: PCP Family Medicine; Visit Provider Nurse Practitioner Family
DX: E87.1 Hypo-osmolality and hyponatremia (principal)
CPT/HCPCS: 36415; 80048

== ENCOUNTER 2024-12-02 10:45 | Outpatient (OUT) | payer MEDICARE, OTHER, SELFPAY ==
--- NOTE | 2024-12-02 11:03 | XR_ITS ---
[address] [address] Patient Name: ANGELIC CABRERA MRN: [id number] date: 1950 Sex: M Assigned Patient Location: [facility] Current Patient Location: [facility] Accession/Order Number: [id number] Exam Date: 12/02/2024 11:47 Report Date: 12/02/2024 11:48 At the request of: MARY MONACO Procedure: XR chest 2V XR chest 2V 12/02/2024 11:03 AM SIGNS AND SYMPTOMS: ^Shortness Of Breath, Abnormal Lung Sounds PROTOCOL: Frontal and lateral radiograph of the chest COMPARISON: None FINDINGS: The trachea is midline. Atherosclerotic changes are noted in the thoracic aorta. The heart and mediastinal structures are within normal limits. The lung parenchyma is clear. The bony thorax is intact. Degenerative changes are present in the thoracic spine and shoulders. XR/XR chest 2V IMPRESSION: No acute cardiopulmonary pathology. Impression dictated by: Zechariah Jáurez M.D. 12/02/2024 11:48 AM Dictation Location: [employer] Electronically authenticated by: [id number] Date: 12/02/2024 11:48
--- OUTSIDE RECORDS SUMMARY | 2024-12-02 11:06 | XMS_ITS | CCD ---
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 Name Role Phone ZAYRA AQUINO Admitting Unavailable ZAYRA AQUINO Attending Unavailable MISC, DOCTOR Primary Care Unavailable ZAYRA AQUINO Consulting Unavailable ROLAN MONACO Admitting Unavailable ROLNA MONACO Attending Unavailable ZAYRA AQUINO Primary Care Unavailable ROLAN MONACO Consulting Unavailable Giorgio Hernandez Attending Provider Rolan Monaco Primary Care Provider Carlos Enrique SLABBER LIGHT, Rolan Temple Unavailable EDMUNDO DYA Referring Unavailable ROLAN MONACO Primary Care Unavailable EDMUNDO DAY Attending Unavailable EDMUNDO DAY Referring Unavailable ROLAN MONACO Primary Care Unavailable EDMUNDO DAY Referring Unavailable ROLAN MONACO Primary Care Unavailable EDMUNDO DAY Referring Unavailable ROLAN MONACO Primary Care Unavailable EDMUNDO DAY Admitting Unavailable EDMUNDO DAY Attending Unavailable ROLAN MONACO Primary Care Unavailable TERESE RODRIGUEZ Attending Unavailable ROLAN MONACO Primary Care Unavailable Zayra Aquino MD Primary Care Provider [phone] Rolan Monaco NP Unavailable Gidustyitis , Andrius Vytautcarola Attending Unavailable Giedraitis , Andrius Vytautas Attending Unavailable Gimatiasraitis , Andrius Vytautas Attending Unavailable Giedraitis , Andrius Vytautas Attending Unavailable Gidustyitis , Andrius Vytautas Attending Unavailable Gidustyitis , Andrius Vytautas Attending Unavailable Friday BRICKMASON SUPERVISOR, Gabriela Unavailable Carlos Enrique SLABBER LIGHT-C, Rolan M Primary Care Provider Bridger Douglas DO Attending Provider Carlos Enrique MARKHAMN-SEAFOOD PROCESSOR, Rolan Temple Primary Care Provider Kelton Morin MD Attending Provider Fabiana Farias RN Unavailable Florence Beltran APRN Attending Provider Carlos Enrique SLABBER LIGHT-C, Rolan Temple Primary Care Provider [phone] Bridger Douglas DO Attending Provider Kelton Morin MD Attending Provider Florence Beltran APRN Attending Provider Lynette Richardson DO Emergency Provider [phone] Baron Ruggiero DO Admit Provider Baron Ruggiero DO Attending Provider [phone] Kun MACKENZIE, Edith Unavailable Unavailable [place]ial[place]i , Reyes N Attending Provider Carlos Enrique SLABBER LIGHT-C, Rolan M Primary Care Provider Yuliana DELEON, Reyes N Admit Provider [phone] Vinicius Mathew DO Other Provider [phone] Anupama Mckeon MD Other Provider Sea Cevallos MD Other Provider Florence Beltran APRN Other Provider [phone] Jimmy Padilla DO Other Provider Robert Brody MD Other Provider Sea Cevallos MD Admit Provider Sea Cevallos MD Attending Provider [phone] Erin JONAS, Sheryl Other Provider Unavailable Irwin JONAS, Aria Other Provider Unavailable Dionte RN, Maria Alejandra Other Provider Unavailable Bi RN, Bhavna Other Provider Unavailable Matt RN, Lamar Other Provider Unavailable Mart JONAS, Laly Other Provider Unavailable Nirav Barboza MD Other Provider Jamie Woods DO Other Provider Celestino Lopez MD Other Provider Alexandre Nieto DO Other Provider Abdirashid Mujica MD Other Provider Ivette Isbell MD Other Provider Nilson Terrell DO Other Provider Christopher Chacon MD Other Provider Unavailable Juliane Haji APRN Other Provider Carmelina CATHERINE, Shaheen Other Provider [phone] Vinicius Graves MD Other Provider Tenzin Quintero MD Other Provider Unavailable Gardenia Muhammad MD Other Provider Nilson Zhang DO Other Provider Makeda Crook MD Other Provider Kip Curry MD Other Provider Barrera SLABBER LIGHT-C, Deb Del Toro Other Provider Evelia Shipman APRN Other Provider Unavailable Phil Quiroga MD Other Provider Eligio Temple MD Other Provider Dank Cardona MD Other Provider Arnulfo Brock MD Other Provider Unavailable Chris Hall MD Other Provider Adelina Grossman DO Other Provider Riley Hallman DO Other Provider Leslie Rice APRN Other Provider Baron Ruggiero DO Other Provider Marilyn CATHERINE, Black Temple Other Provider Izabela Vaughn APRN Other Provider Alanna RUANO, Donna Khan Other Provider Sendy CATHERINE, Cathy Other Provider Unavailable Maral CATHERINE, Raj Del Toro Other Provider MichaelJake peñaloza DO Other Provider Dinesh Christianson DO Other Provider Brendan CATHERINE, Jan Bashir Other Provider Yoni CATHERINE, Dariel William Other Provider Angelica Gill APRN Other Provider Unavailable Arsalan CATHERINE, Gordo Other Provider Ag CATHERINE, Michael Other Provider Fernando CATHERINE, [place] Other Provider David CATHERINE, Christopher Doss Other Provider Phillip CATHERINE, [place] Other Provider Sharon RUANO, Kari Urias Other Provider Angela Leach APRN Other Provider Meghana JONAS, Janet Other Provider Unavailable Bakhous, Aziz Admitting Unavailable Bakhous, Aziz Attending Unavailable [place], Rolan M Primary Care Unavailable Stella, Bridger A Admitting Unavailable Stella, Bridger A Attending Unavailable [place], Rolan M Primary Care Unavailable Turovskaya, Florence Admitting Unavailable Turovskaya, Florence Attending Unavailable Carlos Enrique, Rolan M Primary Care Unavailable [place]ial[place], Reyes N Admitting Unavailable [place]ial[place], Reyes N Attending Unavailable [place], Rolan M Primary Care Unavailable [place], Rolan M Primary Care Unavailable Baron Ruggiero Admitting Unavailable Baron Ruggiero Attending Unavailable [place], Reyes N Admitting Unavailable [place], Reyes N Attending Unavailable [place], Rolan M Primary Care Unavailable Vinicius Mathew Consulting Unavailable Anupama Mckeon Consulting Unavailable Sea Cevallos Consulting Unavailable Turovskaya, Florence Consulting Unavailable Jimmy Padilla Jr Consulting UnavailRobert Mcdonnell Consulting Unavaila ble Sea Cevallos Admitting Unavailable Sea Cevallos Attending Unavailable Rolan Monaco Primary Care Unavailable Sheryl Khan Consulting Unavailable Aria Gayle Consulting Unavailable Maria Alejandra Rapp Consulting Unavailable Bhavna Pat Consulting Unavailable Lamar Gutierrez Consulting Unavailable Laly Cevallos Consulting Unavailable Nirav Barboza Consulting Unavailable Jamie Woods Consulting Unavailable Celestino Lopez Consulting Unavailable Alexandre Nieto Consulting UnavailAbdirashid Silver Consulting Unavailable Ivette Isbell Consulting Unavailable Nilson Terrell Consulting Unavailable Christopher Chacon Consulting Unavailable Juliane Haji Consulting UnavailShaheen Jordan Consulting Unavailable Vinicius Graves Consulting Unavailable Tenzin Quintero Consulting Unavailable [place] Muhammad Consulting Unavailable Nilson Zhang Consulting Unavailable Makeda Crook Consulting Unavailable Kip Curry Consulting Unavailable Deb Rust Consulting Unavailable Evelia Shipman Consulting Unavailable Phil Qiuroga Consulting Unavailab Eligio Escobedo Consulting Unavailable Dank Cardona Consulting Unavailable Arnulfo Brock Consulting Unavailable Chris Hall Consulting Unavailable Adelina Grossman Consulting Unavailable Riley Hallman Consulting Unavailable Leslie Rice Consulting Unavailable Baron Ruggiero Consulting Unavailable Black Sanders Consulting Unavailable Izabela Vaughn Consulting Unavailable Donna Mondragon Consulting Unavailable Cathy Kaba Consulting Unavailable Raj Alicia Consulting Unavailable Jake Michael Consulting Unavailable Dinesh Christianson Consulting Unavailable Jan Cardnoa Consulting Unavailable Dariel Vallejo Consulting Unava ilable Angelica Gill Consulting Unavailable Gordo Arriaza Consulting Unavailable Michael Luong Consulting Unavailable Sea King Consulting Unavailable Christopher Hernandez Consulting Unavailable London Fisher Consulting Unavailable Kari Herrera Consulting Unavailable Angela Leach Consulting Unavaila Janet Damon Consulting Unavailable Florence Beltran Admitting Unavailable Florence Beltran Attending Unavailable Rolan Monaco Primary Care Unavailable ROLAN MONACO Attending Unavailable ROLAN MONACO Attending Unavailable EDMUNDO DAY Attending Unavailable ROLAN MONACO Attending Unavailable VINICIUS MATHEW Attending Unavailable CARLOS ENRIQUE, ROLAN Temple Attending Unavailable CARLOS ENRIQUE, ROLAN Temple Attending Unavailable SHANE, EDMUNDO Lackey Attending Unavailable CHACE, LUIS EDUARDO Hawthorne Attending Unavailable SHANE, EDMUNDO Lackey Referring Unavailable LAMAR WADSWORTH Attending Unavailable SHANE, EDMUNDO Lackey Referring Unavailable JAYE, KATHY Attending Unavailable HSANE, EDMUNDO Lackey Referring Unavailable ERNESTO TAI Attending Unavailable SHANE, EDMUNDO Lackey Referring Unavailable BRERNESTO DAVE Attending Unavailable SHANE, EDMUNDO Lackey Referring Unavailable KELBLEY, KATHY Attending Unavailable SHANE, EDMUNDO Lackey Referring Unavailable BRERNESTO DAVE Attending Unavailable SHANE, EDMUNDO Lackey Referring Unavailable JAYE, KATHY Attending Unavailable SHANE, EDMUNDO Lackey Referring Unavailable BRERNESTO DAVE Attending Unavailable SHANE, EDMUNDO Lackey Referring Unavailable BLACKSLUIS EDUARDO MÉNDEZ Attending Unavailable SHANE, EDMUNDO Lackey Referring Unavailable SHANE, EDMUNDO Lackey Attending Unavailable SHANE, EDMUNDO Lackey Referring Unavailable MARCOS NICHOLE Attending Unavailable DIONISIO, MARCOS Lackey Attending Unavailable MARCOS NICHOLE Attending Unavailable SHANE, EDMUNDO Lackey Attending Unavailable CARLOS ENRIQUE, ROLAN Temple Attending Unavailable CARLOS ENRIQUE, ROLAN Temple Attending Unavailable CARLOS ENRIQUE, ROLAN Temple Attending Unavailable APLCORINE CONNORS Attending Unavailable APLINGCORINE Referring Unavailable CARLOS ENRIQUE, ROLAN Temple Attending Unavailable Unavailable Unavailable Unavailable Medications Current Medications Medication Drug Class(es) Dates Sig (Normalized) Sig (Original) acetaminophen 500 mg oral tablet (1 source) Start: 11-15-2024 take 1 tablet by mouth every four hours as needed for pain Acetaminophen 500 mg Tablet Active 500 MG PO Q4H as needed for Pain 0 November 15, 2024 12:00am ALPRAZolam 0.25 mg oral tablet (20 sources) Benzodiazepine Start: 09-07-2024 take 0.125 mg by mouth once daily Alprazolam (Xanax) 0.25 mg tablet Active 0.125 MG PO Daily September 07, 2024 2:19pm Start: 08-10-2024 End: 09-07-2024 take 1 tablet by mouth once daily Alprazolam (Xanax) 0.25 mg tablet Discontinued 0.25 MG PO Daily August 10, 2024 1:00am September 07, 2024 2:24pm Start: 09-24-2023 End: 11-15-2024 take 1 tablet by mouth three times daily as needed for anxiety ALPRAZolam (Xanax) 0.25 MG tablet Take 0.25 mg by mouth 3 (three) times a day as needed for anxiety 09/07/2024 Active Start: 07-10-2023 take 1 tablet by jorge a three times daily as needed for anxiety ALPRAZolam (Xanax) 0.25 MG tablet Indications: Anxiety Take 1 tablet (0.25 mg) by mouth 3 (three) times a day as needed for anxiety 30 tablet 0 07/10/2023 Active Balsam [place] Oil Ointment (1 source) Start: 11-15-2024 Balsam Rebel-[place] stor Oil Ointment Active 1 APPLIC TOPICAL Twice daily November 15, 2024 12:00am Blood Pressure kit (20 sources) Start: 10-22-2023 Blood Pressure kit Indications: Primary hypertension (CMS/HCC) 1 Units in the morning and 1 Units in the evening and 1 Units before bedtime. 1 kit 10/22/2023 Active busPIRone hydrochloride 5 mg oral tablet (20 sources) Start: 11-15-2024 take 1 tablet by mouth once daily in the morning Buspirone 10 mg Tablet Active 10 MG PO Every morning November 15, 2024 12:00am Start: 11-15-2024 take 1 tablet by jorge a twice daily Buspirone 5 mg Tablet Active 5 MG PO BID@1400,2200 60 November 15, 2024 12:00am Start: 09-07-2024 take 3 tablets by mo [facility] twice daily Buspirone 5 mg tablet Active 15 MG PO Twice daily September 07, 2024 2:19pm Start: 08-10-2024 End: 09-07-2024 take 1 tablet by mouth three times daily Buspirone 5 mg tablet Discontinued 5 MG PO Three times daily August 10, 2024 1:00am September 07, 2024 2:24pm Start: 12-01-2023 End: 11-15-2024 take 2 tablets by mouth once daily [...] 3 04/01/2023 09/01/2023 Discontinued (Med list cleanup) take 1 tablet by jorge a th three times daily busPIRone (BUSPAR) 15 mg tablet Take 1 tablet (15 mg total) by mouth 3 (three) times a day. Active carvedilol 12.5 mg oral tablet (20 sources) alpha-Adrenergic Ivelisse, beta-Adrenergic Ivelisse Start: 10-21-2024 take 2 tablets by mouth in the morning carvedilol (Coreg) 12.5 MG tablet Indications: Hypertriglyceridemia (CMS/HCC) Take 2 tablets (25 mg) by mouth in the morning and 2 tablets (25 mg) before bedtime. 200 tablet 3 10/21/2024 Active Start: 10-01-2024 End: 11-15-2024 take 1 tablet by mouth twice daily at mealtime Carvedilol 25 mg Tablet Active 25 MG PO Twice daily with meals 60 30 November 15, 2024 12:00am Start: 09-07-2024 take 6.25 mg by mout h twice daily at mealtime Carvedilol (Coreg) 12.5 mg tablet Active 6.25 MG PO Twice daily September 07, 2024 2:19pm must administer with a meal/food Start: 03-29-2024 End: 10-21-2024 take 1 tablet by mouth twice daily at mealtime Carvedilol (Coreg) 12.5 mg tablet Discontinued 12.5 MG PO Twice daily September 07, 2024 2:19pm October 01, 2024 11:31am must administer with a meal/food Start: 02-18-2023 take 1 tablet by jorge a th twice daily carvedilol (Coreg) 12.5 MG tablet Indications: Hypertriglyceridemia (CMS/HCC) TAKE ONE TABLET BY MOUTH TWICE A DAY 200 tablet 3 02/18/2023 Active End: 01-08-2024 take 1 tablet by mouth twice daily at mealtime carvediloL (COREG) 6.25 mg tablet Take 6.25 mg by mouth 2 (two) times a day with meals. 01/08/2024 Discontinued cephalexin 500 mg oral capsule (8 sources) Cephalosporin Antibacterial Start: 11-12-2024 End: 11-15-2024 cephalexin (Keflex) 500 MG capsule Three times daily 11/15/2024 Active cyclobenzaprine hydrochloride 10 mg oral tablet (8 sources) Muscle Relaxant Start: 11-12-2024 End: 11-15-2024 take 1 tablet by mouth three times daily as needed for muscle spasms cyclobenzaprine (Flexeril) 10 MG tablet Take 10 mg by mouth 3 (three) times a day as needed for muscle spasms 11/15/2024 Active ferrous sulfate 325 mg delayed release oral tablet (1 source) Start: 01-08-2024 End: 03-08-2024 take 1 tablet by mouth in the morning ferrous sulfate 325 (65 FE) mg EC tablet Take 1 tablet (325 mg total) by mouth in the morning. 01/08/2024 03/08/2024 Active furosemide 20 mg oral tablet (20 sources) Loop Diuretic Start: 10-21-2024 take 1 tablet by mouth once daily in the morning Furosemide (Lasix) 20 mg tablet Active 20 MG PO Every morning October 21, 2024 12:00am Start: 09-07-2024 End: 11-15-2024 take 1 tablet by mouth twice daily Furosemide 20 mg Tablet Active 20 MG PO BID@0800,1600 60 November 15, 2024 12:00am losartan potassium 50 mg oral tablet (20 sources) Angiotensin 2 Receptor Ivelisse Start: 10-01-2024 End: 11-15-2024 take 1 tablet by mouth once daily in the morning Losartan 50 mg Tablet Active 50 MG PO Every morning November 15, 2024 12:00am Start: 09-07-2024 End: 10-01-2024 take 1 tablet by mouth once daily Losartan 25 mg tablet Discontinued 25 MG PO Daily September 07, 2024 1:00am October 01, 2024 11:31am take 2 tablets by [facility] once daily losartan (Cozaar) 25 MG tablet Take 50 mg by mouth Daily Active 24 hr nicotine 0.875 mg/hr transdermal system (2 sources) Cholinergic Nicotinic Agonist Start: 11-30-2024 End: 12-30-2024 nicotine (Nicoderm, Step 1) 21 MG/24HR patch Indications: Tobacco abuse Place 1 patch over 24 hours on the skin 1 (one) time each day at the same time 30 patch 11/30/2024 12/30/2024 Active predniSONE 10 mg oral tablet (3 sources) Start: 11-12-2024 End: 11-15-2024 take 4 tablets by mouth once daily Prednisone 10 mg Tablet Active 40 MG PO Daily November 15, 2024 12:00am Please contact the information source for Taper Schedule details. sodium chloride 1000 mg oral tablet (20 sources) Start: 10-21-2024 End: 11-15-2024 take 1 tablet by mouth four times daily Sodium Chloride 1,000 mg Tablet,Soluble Active 1000 MG PO Four times daily 120 November 15, 2024 12:00am Start: 10-21-2024 take 1 tablet by jorge a twice daily Sodium Chloride 1,000 mg tablet,soluble Active 1000 MG PO Twice daily October 21, 2024 12:00am Start: 09-07-2024 End: 09-30-2024 take 1 tablet by mouth five times daily Sodium Chloride 1,000 mg tablet,soluble Discontinued 1000 MG PO 5 times per day September 07, 2024 2:23pm September 30, 2024 9:27am Start: 08-26-2024 End: 09-07-2024 take 1 tablet by mouth four times daily as needed Sodium Chloride 1,000 mg tablet,soluble Discontinued 1000 MG PO Four times daily as needed August 26, 2024 2:11pm September 07, 2024 2:24pm Start: 08-10-2024 End: 08-26-2024 take 1 tablet by mouth three times daily as needed Sodium Chloride 1,000 mg tablet,soluble Discontinued 1000 MG PO Three times daily as needed August 10, 2024 1:00am August 26, 2024 2:12pm Start: 07-20-2024 End: 08-26-2025 take 1 tablet by mouth at bedtime sodium chloride 1 g tablet Indications: Hyponatremia Take 1 tablet (1 g) by mouth in the morning and 1 tablet (1 g) at noon and 1 tablet (1 g) in the evening and 1 tablet (1 g) before bedtime. 120 tablet 11 08/26/2024 08/26/2025 Active tamsulosin hydrochloride 0.4 mg oral capsule (20 sources) alpha-Adrenergic Ivelisse Start: 10-14-2023 End: 11-15-2024 take 1 capsule by mouth once daily [...] MOUTH DAILY 90 capsule 1 04/14/2023 Active venlafaxine 75 mg oral tablet (20 sources) Serotonin and Norepinephrine Reuptake Inhibitor Start: 11-04-2024 End: 11-15-2024 take 1 tablet by mouth three times daily Venlafaxine 75 mg Tablet Active 75 MG PO Three times daily 90 November 15, 2024 12:00am Start: 09-29-2024 take 1 tablet by jorge a th once daily at bedtime venlafaxine (Effexor) 75 MG tablet Indications: Adjustment disorder with anxiety (CMS/HCC) TAKE 1 TABLET BY MOUTH EVERY MORNING , EVERY EVENING , AND BEFORE BEDTIME 300 tablet 09/29/2024 Active Start: 09-07-2024 take 1 capsule by mo uth once daily Venlafaxine (Effexor Xr) 75 mg capsule,extended release 24hr Active 37.5 MG PO Daily September 07, 2024 2:22pm Start: 08-10-2024 End: 09-07-2024 take 1 capsule by mouth three times daily Venlafaxine (Effexor Xr) 75 mg capsule,extended release 24hr Discontinued 75 MG PO Three times daily August 10, 2024 1:00am September 07, 2024 2:24pm Start: 05-31-2024 take 1 tablet by jorge a th in the morning, then take 1 tablet [...] WITH FOOD 300 tablet 03/01/2024 Active Start: 11-19-2023 venlafaxine (E FFEXOR) 75 mg tablet Take 1 tablet (75 mg total) by mouth in the morning and 1 tablet (75 mg total) at noon and 1 tablet (75 mg total) in the evening. Take with meals. 11/19/2023 Active Start: 08-18-2023 take 1 tablet by jorge a th three times daily at mealtime venlafaxine (Effexor) 75 MG tablet Indications: Adjustment disorder with anxiety (CMS/HCC) TAKE ONE TABLET BY MOUTH THREE TIMES A DAY WITH FOOD 300 tablet 0 08/18/2023 Active End: 01-08-2024 take 1 tablet by mouth twice daily venlafaxine (EFFEXOR) 25 mg tablet Take 25 mg by mouth 2 (two) times a day. 01/08/2024 Discontinued Completed/Discontinued Medications Medication Drug Class(es) Dates Sig (Normalized) Sig (Original) acetaminophen 325 mg / HYDROcodone bitartrate 5 mg oral tablet (20 sources) Opioid Agonist Start: 08-10-2024 End: 09-30-2024 take 1 tablet by mouth every four to six hours as needed Hydrocodone-Acetami nophen 5-325 mg tablet Discontinued 1 TAB PO EVERY 4-6 HOURS as needed August 10, 2024 1:00am September 30, 2024 9:25am HYDROcodone-acet aminophen ([place]) 5-325 MG tablet Active hydroCHLOROthiazide 25 mg oral tablet (20 sources) Thiazide Diuretic Start: 09-07-2024 End: 09-07-2024 take 1 tablet by mouth once daily Hydrochlorothiazide 25 mg tablet Discontinued 25 MG PO Daily September 07, 2024 1:00am September 07, 2024 2:40pm Start: 01-13-2024 End: 01-12-2025 take 1 tablet by mouth once daily hydroCHLOROthiazide (HYDRODiuril) 50 MG tablet Indications: Primary hypertension (CMS/HCC) Take 1 tablet (50 mg) by mouth Daily 90 tablet 3 01/13/2024 09/09/2024 Discontinued (Therapy completed) Start: 07-28-2023 take 1 capsule by mo [facility] once daily in the morning hydroCHLOROthiazide (Microzide) 12.5 MG capsule Indications: Hypertension, unspecified type (CMS/HCC) TAKE ONE CAPSULE BY MOUTH EVERY MORNING 90 capsule 0 07/28/2023 Active lisinopril 5 mg oral tablet (19 sources) Angiotensin Converting Enzyme Inhibitor Start: 07-29-2024 End: 07-29-2025 take 1 tablet by mouth once daily Lisinopril 5 mg tablet Discontinued 5 MG PO Daily September 30, 2024 12:00am October 01, 2024 11:31am oxyCODONE hydrochloride 5 mg oral tablet (3 sources) Opioid Agonist Start: 11-12-2024 End: 11-15-2024 take 1 tablet by mouth every four to six hours as needed for pain Oxycodone 5 mg tablet Discontinued 5 MG PO EVERY 4-6 HOURS as needed for pain 40 7 November 12, 2024 November 12, 2024 2:59pm tiZANidine 4 mg oral capsule (20 sources) Central alpha-2 Adrenergic Agonist Start: 08-10-2024 End: 09-30-2024 take 1 capsule by mouth every eight hours as needed Tizanidine (Zanaflex) 4 mg capsule Discontinued 4 MG PO Every 8 hours as needed August 10, 2024 1:00am September 30, 2024 9:27am Start: 01-13-2024 End: 07-15-2024 take 1 tablet by mouth every six hours for muscle spasms tiZANidine (Zanaflex) 4 MG tablet Indications: Muscle spasm of back Take 1 tablet (4 mg) by mouth every 6 (six) hours if needed for muscle spasms 30 tablet 2 07/15/2024 Active Start: 12-16-2023 take 1 tablet by jorge a every six hours as needed tiZANidine (ZANAFLEX) 4 mg tablet Take 1 tablet (4 mg total) by mouth every 6 (six) hours as needed. 12/16/2023 Active Start: 01-02-2024 take 1 tablet by jorge a th every six hours as needed for muscle spasms tiZANidine (Zanaflex) 4 MG tablet Indications: Muscle spasm of back TAKE ONE TABLET BY MOUTH EVERY 6 HOURS NEEDED FOR MUSCLE SPASMS 30 tablet 0 07/22/2023 Active Problems Active Problems Problem Classification Problem Date Documented Date Episodic/Chronic Acute and chronic tonsillitis (20 sources) Hypertrophy of tonsils AND adenoids; Translations: [Hypertrophy of tonsils with hypertrophy of adenoids] Onset: 02-18-2023 02-18-2023 Chronic Acute cerebrovascular disease (14 sources) Cerebrovascular accident; Translations: [Cerebral infarction, unspecified] 08-10-2024 Chronic Adjustment disorders (20 sources) Adjustment disorder with anxious mood; Translations: [Adjustment disorder with anxiety] Onset: 02-18-2023 02-18-2023 Chronic Administrative/social admission (4 sources) Other reduced mobility; Translations: [Impaired mobility and activities of daily living] Onset: 11-12-2024 11-12-2024 Episodic Alcohol-related disorders (20 sources) Alcohol abuse; Translations: [Alcohol abuse, uncomplicated] Onset: 02-18-2023 02-18-2023 Chronic Anxiety disorders (2 sources) Anxiety; Translations: [Anxiety disorder, unspecified] 07-15-2024 Chronic Coma; stupor; and brain damage (20 sources) Loss of consciousness; Translations: [Unspecified coma] Onset: 09-20-2024 08-26-2024 Episodic Complications of surgical procedures or medical care (5 sources) Expected difficult tracheal intubation; Translations: [Failed or difficult intubation, initial encounter] Onset: 11-04-2024 11-04-2024 Episodic Disorders of lipid metabolism (20 sources) Hypertriglyceridemia; Translations: [Pure hyperglyceridemia] Onset: 02-18-2023 02-18-2023 Chronic E Codes: Fall (20 sources) Fall; Translations: [Unspecified fall, initial encounter] Onset: 09-20-2024 08-26-2024 Episodic Epilepsy; convulsions (10 sources) Seizure; Translations: [Unspecified convulsions] 09-30-2024 Episodic Essential hypertension (20 sources) Hypertensive disorder; Translations: [Essential (primary) hypertension] Onset: 02-18-2023 02-18-2023 Chronic Fluid and electrolyte disorders (20 sources) Hyponatremia; Translations: [Hypo-osmolality and hyponatremia] Onset: 09-07-2024 07-20-2024 Episodic Hyperplasia of prostate (20 sources) Benign prostatic hyperplasia; Translations: [Benign prostatic hyperplasia without lower urinary tract symptoms] Onset: 02-18-2023 02-18-2023 Chronic Immunizations and screening for infectious disease (4 sources) Encounter for screening for other viral diseases; Translations: [ENC SCREENING FOR OTH VIRAL DZ] Onset: 02-25-2020 Episodic Lymphadenitis (14 sources) Lymphadenitis; Translations: [Nonspecific lymphadenitis, unspecified] 08-10-2024 Episodic Mood disorders (15 sources) Depressive disorder; Translations: [Depression] 08-10-2024 Chronic Osteoarthritis (20 sources) Osteoarthritis of right knee joint; Translations: [Unilateral primary osteoarthritis, right knee] Onset: 02-18-2023 02-18-2023 Chronic Other bone disease and musculoskeletal deformities (6 sources) Avascular necrosis of bone of hip; 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 Day right knee, Dr. Helio fang 02/04/24 Other connective tissue disease (3 sources) Artificial knee joint present; Translations: [Presence of right artificial knee joint] 03-12-2024 Chronic Other connective tissue disease (6 sources) Pain in right foot; Translations: [Pain in right foot] 04-19-2024 Episodic Other connective tissue disease (16 sources) Recurrent falls ; Translations: [Repeated falls] 08-10-2024 Episodic Other connective tissue disease (12 sources) Muscle weakness of upper limb; Translations: [Other symptoms and signs involving the musculoskeletal system] 08-26-2024 Episodic Other connective tissue disease (13 sources) Repeated falls; Translations: [History of fall] Onset: 09-20-2024 08-26-2024 Episodic Other connective tissue disease (20 sources) Other symptoms and signs involving the musculoskeletal system; Translations: [Other musculoskeletal symptoms referable to limbs] Onset: 09-20-2024 08-26-2024 Episodic Other connective tissue disease (1 source) History of cervical spine fusion; Translations: [Arthrodesis status] 11-15-2024 Episodic Other injuries and conditions due to external causes (11 sources) Head and neck injury; Translations: [Unspecified injury of neck, initial encounter] 08-26-2024 Episodic Other injuries and conditions due to external causes (12 sources) Unspecified injury of neck, initial encounter; Translations: [Injury of face and neck] Onset: 09-20-2024 08-26-2024 Episodic Other injuries and conditions due to external causes (1 source) Unspecified injury of head, initial encounter; Translations: [Unspecified injury of head, initial encounter] Onset: 09-20-2024 Episodic Other injuries and conditions due to external causes (1 source) Unspecified injury of face, initial encounter; Translations: [Unspecified injury of face, initial encounter] Onset: 09-20-2024 Episodic Other lower respiratory disease (2 sources) Partially obstructed airway; Translations: [Other specified respiratory disorders] 11-08-2024 Episodic Other lower respiratory disease (4 sources) Other specified respiratory disorders; Translations: [Other diseases of respiratory system, not elsewhere classified] Onset: 11-04-2024 11-12-2024 Episodic Other lower respiratory disease (2 sources) Dyspnea; Translations: [Shortness of breath] 11-30-2024 Episodic Other nervous system disorders (20 sources) Carpal tunnel syndrome; Translations: [Carpal tunnel syndrome, unspecified upper limb] Onset: 02-18-2023 02-18-2023 Chronic Other nervous system disorders (7 sources) Cervical myelopathy; Translations: [Disease of spinal cord, unspecified] 09-23-2024 Chronic Other nervous system disorders (20 sources) Disease of spinal cord, unspecified; Translations: [Cervical spondylosis with myelopathy] Onset: 10-12-2024 09-23-2024 Chronic Other nervous system disorders (2 sources) Bilateral carpal tunnel syndrome; Translations: [Carpal tunnel syndrome, bilateral upper limbs] 10-28-2024 Chronic Other nervous system disorders (14 sources) Poor balance; Translations: [Other abnormalities of gait and mobility] 08-10-2024 Episodic Other nervous system disorders (12 sources) Ataxic gait; Translations: [Ataxic gait] 08-26-2024 Episodic Other nervous system disorders (20 sources) Ataxic gait; Translations: [Abnormality of gait] Onset: 09-20-2024 08-26-2024 Episodic Other nervous system disorders (11 sources) Impairment of balance; Translations: [Other abnormalities of gait and mobility] 09-07-2024 Episodic Other nervous system disorders (11 sources) Other abnormalities of gait and mobility; Translations: [Abnormality of gait] 09-07-2024 Episodic Other non-traumatic joint disorders (2 sources) Pain in elbow; Translations: [Pain in right elbow] 08-28-2023 Episodic Other non-traumatic joint disorders (5 sources) Pain in right knee; Translations: [Pain in joint, lower leg] 03-12-2024 Episodic Other non-traumatic joint disorders (18 sources) Hip pain; Translations: [Pain in left hip] 07-15-2024 Episodic Other non-traumatic joint disorders (4 sources) Joint pain; Translations: [Pain in unspecified joint] 08-04-2024 Episodic Other nutritional; endocrine; and metabolic disorders (3 sources) Disorder of carbohydrate metabolism; Translations: [Other disorders of intestinal carbohydrate absorption] Onset: 02-18-2023 02-18-2023 Chronic Other nutritional; endocrine; and metabolic disorders (20 sources) Morbid obesity; Translations: [Morbid (severe) obesity due to excess calories] Onset: 02-18-2023 02-18-2023 Chronic Other upper respiratory disease (2 sources) Stridor; Translations: [Stridor] 11-04-2024 Episodic Other upper respiratory disease (3 sources) Stridor; Translations: [Stridor] Onset: 11-04-2024 11-12-2024 Episodic Residual codes; unclassified (20 sources) Sleep apnea; Translations: [Sleep apnea, unspecified] Onset: 02-18-2023 02-18-2023 Chronic Residual codes; unclassified (8 sources) Sleep apnea, unspecified; Translations: [Unspecified sleep apnea] Onset: 01-08-2024 10-01-2024 Chronic Residual codes; unclassified (2 sources) Obstructive sleep apnea syndrome; Translations: [Obstructive sleep apnea (adult) (pediatric)] 11-04-2024 Chronic Residual codes; unclassified (4 sources) Obstructive sleep apnea (adult) (pediatric); Translations: [Obstructive sleep apnea (adult)(pediatric)] Onset: 11-04-2024 11-12-2024 Chronic Residual codes; unclassified (7 sources) Acute confusion; Translations: [Disorientation, unspecified] 09-30-2024 Episodic Residual codes; unclassified (7 sources) Disorientation, unspecified; Translations: [Delirium due to conditions classified elsewhere] 09-30-2024 Episodic Residual codes; unclassified (1 source) Other specified health status; Translations: [Other specified health status] Onset: 11-12-2024 Episodic Residual codes; unclassified (2 sources) Tobacco user; Translations: [Tobacco use] 11-30-2024 Episodic Respiratory failure; insufficiency; arrest (adult) (7 sources) Acute hypoxemic and hypercapnic respiratory failure; Translations: [Acute respiratory failure with hypoxia] Onset: 11-04-2024 11-04-2024 Episodic Spondylosis; intervertebral disc disorders; other back problems (1 source) Other spondylosis with myelopathy, cervical region; Translations: [Other spondylosis with myelopathy, cervical region] Onset: 11-12-2024 Chronic Spondylosis; intervertebral disc disorders; other back problems (20 sources) Acute low back pain; Translations: [Acute bilateral low back pain without sciatica] 07-15-2024 Episodic Sprains and strains (2 sources) Unspecified sprain of right elbow, subsequent encounter; Translations: [Other specified aftercare] 08-28-2023 Episodic Substance-related disorders (13 sources) Smoker; Translations: [Nicotine dependence, unspecified, uncomplicated] Onset: 09-30-2024 09-30-2024 Chronic Superficial injury; contusion (2 sources) Contusion of right elbow; Translations: [Contusion of right elbow, subsequent encounter] 08-28-2023 Episodic Transient cerebral ischemia (10 sources) Transient cerebral ischemia; Translations: [Transient cerebral ischemic attack, unspecified] 09-30-2024 Chronic Unclassified (1 source) right knee degenerative joint disease Onset: 02-04-2024 Unclassified (7 sources) A [facility] screening has identified you as FRAIL or AT RISK FOR FRAILTY. This puts you at a higher risk for infection, illness, falls, and other injuries. Here are four ways to help you reduce your risk of frailty: 1. IDENTIFY EARLY SIGNS OF FRAILTY Discuss contributing factors and concerns with your doctor 2. BE ACTIVE Walking and light strengthening exercises will help reduce weakness 3. EAT WELL Aim for three healthy meals a day that are high in protein 4. THINK POSITIVE Keep your mind active by being sociable and continuing to learn References: Stay Strong: Four Ways to Beat the Frailty Risk [email or web address] FFFavs.Realius/health/wel vsgvm-cdv-rcpcsfqgeo/ dedh-yzvwat-tigx-ways -ex-wvou-hst-fra ilty-risk 10-01-2024 Viral infection (6 sources) Verruca plantaris; Translations: [Plantar wart] 04-19-2024 Episodic Past or Other Problems Problem Classification Problem Date Documented Da te Episodic/Chronic Mood disorders (20 sources) Mood disorders; Translations: [Depression, unspecified] Onset: 11-12-2024 10-22-2023 Neoplasms of unspecified nature or uncertain behavior (2 sources) Neoplasm of uncertain behavior of skin; Translations: [Neoplasm of uncertain behavior of skin] 03-25-2024 Episodic Other acquired deformities (20 sources) Acquired spondylolisthesis ; Translations: [Spondylolisthesi s, site unspecified] Onset: 02-18-2023 02-18-2023 Episodic Other nervous system disorders (20 sources) Paresthesia; Translations: [Paresthesia of skin] Onset: 02-18-2023 02-18-2023 Episodic Other non-traumatic joint disorders (1 source) Pain in left hip; Translations: [Pain in left hip] Onset: 08-10-2024 Episodic Results Test Name Value Interpretation Reference Range Facility ALL BASIC METABOLIC PANELon 11-29-2024 Anion gap [Moles/Vol] 9.5 mmol/L [facility] Calcium [Mass/Vol] 8.5 mg/dL 8.5 - 10. 1 mg/dL [facility] Chloride [Moles/Vol] 98 mmol/L 98 - 10 7 mmol/L [facility] CO2 [Moles/Vol] 33.7 mmol/L High 21.0 - 32.0 mmol/L [facility] Creatinine [Mass/Vol] 0.49 mg/dL Low 0.70 - 1.30 mg/dL [facility] GFR/1.73 sq M.predicted CKD-EPI (S/P/Bld) [Vol rate/Area] >60 >=60 mL/min/1.7 3m [address] [facility] Glucose [Mass/Vol] 125 mg/dL High 74 - 106 mg/dL [facility] Interpretation and review of laboratory results Abnormal [facility] Potassium [Moles/Vol] 4.2 mmol/L 3.5 - 5.1 mmol/L [facility] Sodium [Moles/Vol] 137 mmol/L 136 - 145 mmol/L [facility] TBH EGFR-NON AF BURMESE >60 >=60 mL/min/1.7 3m [address] [facility] Urea nitrogen [Mass/Vol] 12 mg/dL 7.0 - 18.0 mg/dL [facility] Urea nitrogen/Creatinine [Mass ratio] 24.5 mg/mg [facility] aminotransferase [En zymatic activity/volume] in Serum or PlasmaOrdered By: Sea Cevallos on 11-13-2024 ALT [Catalytic activity/Vol] Alanine aminotransferase [Enzymatic activity/volume] in Serum or Plasma 7-52 [facility] Albumin [Mass/volume] in Ser um or Plasma by Bromocresol green (BCG) dye binding methoOrdered By: Sea Cevallos on 11-13-2024 Albumin BCG dye [Mass/Vol] Albumin [Mass/volume] in Serum or Plasma by Bromocresol green (BCG) dye binding metho 3.5-5.7 [facility] Alkaline phosphatase [Enzyma tic activity/volume] in Serum or PlasmaOrdered By: Sea Cevallos on 11-13-2024 ALP [Catalytic activity/Vol] Alkaline phosphatase [Enzymatic activity/volume] in Serum or Plasma 34-104 [facility] Aspartate aminotransferase [ Enzymatic activity/volume] in Serum or PlasmaOrdered By: Sea Cevallos on 11-13-2024 AST [Catalytic activity/Vol] Aspartate aminotransferase [Enzymatic activity/volume] in Serum or Plasma 13-39 [facility] Basophils Auto (Bld) [#/Vol] Ordered By: Sea Cevallos on 11-13-2024 Basophils (Bld) [#/Vol] Automated basophil count 0.0-0.2 [facility] Basophils/100 WBC Auto (Bld) Ordered By: Sea Cevallos on 11-13-2024 Basophils/100 WBC (Bld) Automated basophil % . [facility] Bilirubin.total [Mass/volume ] in Serum or PlasmaOrdered By: Sea Cevallos on 11-13-2024 Bilirubin [Mass/Vol] Bilirubin.total [Mass/volume] in Serum or Plasma 0.3-1.0 [facility] Calcium [Mass/volume] in Ser um or PlasmaOrdered By: Sea Cevallos on 11-13-2024 Calcium [Mass/Vol] Calcium [Mass/volume ] in Serum or Plasma Low 8.6-10.3 [facility] Carbon dioxide, total [Moles /volume] in Serum or PlasmaOrdered By: Sea Cevallos on 11-13-2024 CO2 [Moles/Vol] Carbon dioxide, tota l [Moles/volume] in Serum or Plasma 21.0-31.0 [facility] Chloride [Moles/volume] in S bere or PlasmaOrdered By: Sea Cevallos on 11-13-2024 Chloride [Moles/Vol] Chloride [Moles/vol ume] in Serum or Plasma 98-107 [facility] Complete Blood Count Auto Di ffon 11-13-2024 Basophils (Bld) [#/Vol] 0.0 10*3/uL Normal 0.0-0.2 [facility] Comment on above: Result Comment: PERF ORMED BY: [facility] [address] [place] [address] PATHOLOGIST FRENCH CORD BINDER ALANNA RUDOLPH M.D. Performed By: #### A BG #### Point of Care testing , Basophils/100 WBC (Bld) 0.3 % Normal . [facility] Comment on above: Performed By: #### A BG #### Point of Care testing , Eosinophils (Bld) [#/Vol] 0.0 10*3/uL Normal 0.0-0.45 [facility] Comment on above: Performed By: #### A BG #### Point of Care testing , Eosinophils/100 WBC (Bld) 0.3 % Normal . [facility] Comment on above: Performed By: #### A BG #### Point of Care testing , Erythrocyte distribution width (RBC) [Ratio] 15.8 % High 12.0-14.8 [facility] Comment on above: Performed By: #### A BG #### Point of Care testing , Hematocrit (Bld) [Volume fraction] 38.2 % Low 38.8-50.0 [facility] Comment on above: Performed By: #### A BG #### Point of Care testing , Hemoglobin (Bld) [Mass/Vol] 13.1 g/dL Normal 13.0-17.0 [facility] Comment on above: Performed By: #### A BG #### Point of Care testing , Lymphocytes (Bld) [#/Vol] 0.7 10*3/uL Low 1.00-4.8 [facility] Comment on above: Performed By: #### A BG #### Point of Care testing , Lymphocytes/100 WBC (Bld) 7.0 % Normal . [facility] Comment on above: Performed By: #### A BG #### Point of Care testing , MCH (RBC) [Entitic mass] 35.1 pg Normal 27.5-35.2 [facility] Comment on above: Performed By: #### A BG #### Point of Care testing , MCV (RBC) [Entitic vol] 102.6 fL High 83.5-101 [facility] Comment on above: Performed By: #### A BG #### Point of Care testing , Mean Corpuscular HGB Conc 34.3 g/dL Normal 32.5-35.6 [facility] Comment on above: Performed By: #### A BG #### Point of Care testing , Monocytes (Bld) [#/Vol] 1.3 10*3/uL High 0.0-0.8 [facility] Comment on above: Performed By: #### A BG #### Point of Care testing , Monocytes/100 WBC (Bld) 12.2 % Normal . [facility] Comment on above: Performed By: #### A BG #### Point of Care testing , Neutrophils (Bld) [#/Vol] 8.4 10*3/uL High 1.8-7.7 [facility] Comment on above: Performed By: #### A BG #### Point of Care testing , Neutrophils/100 WBC (Bld) 80.2 % Normal . [facility] Comment on above: Performed By: #### A BG #### Point of Care testing , NRBC% 0.2 /100{WBC} Normal 0-0.5 [facility] Comment on above: Performed By: #### A BG #### Point of Care testing , Platelet mean volume (Bld) [Entitic vol] 8.0 fL Normal 6.6-10.1 [facility] Comment on above: Performed By: #### A BG #### Point of Care testing , Platelets (Bld) [#/Vol] 197 10*3/uL Normal 150-450 [facility] Comment on above: Performed By: #### A BG #### Point of Care testing , RBC (Bld) [#/Vol] 3.72 10*6/uL Low 3.90-5.[address] [facility] Comment on above: Performed By: #### A BG #### Point of Care testing , WBC (Bld) [#/Vol] 10.5 10*3/uL Normal 4.1-10.[address] [facility] Comment on above: Performed By: #### A BG #### Point of Care testing , Comprehensive Metabolic Pane april 11-13-2024 Albumin [Mass/Vol] 3.5 g/dL Normal 3.5-5.7 [facility] Comment on above: Performed By: #### C BC #### [facility] [address] Albumin/Globulin [Mass ratio] 1.5 {ratio} Normal [facility] Comment on above: Performed By: #### C BC #### [facility] [address] [place] [id number] [place] ALP [Catalytic activity/Vol] 44 U/L Normal 34-104 [facility] Comment on above: Performed By: #### C BC #### [address] ALT [Catalytic activity/Vol] 45 U/L Normal 7-52 [facility] Comment on above: Performed By: #### C BC #### [address] Anion gap [Moles/Vol] 11.6 mmol/L Normal 6.0-15.0 [facility] Comment on above: Performed By: #### C BC #### [address] AST [Catalytic activity/Vol] 28 U/L Normal 13-39 [facility] Comment on above: Performed By: #### C BC #### [address] Bilirubin [Mass/Vol] 0.7 mg/dL Normal 0.3-1.0 [facility] Comment on above: Performed By: #### C BC #### [address] Calcium [Mass/Vol] 8.1 mg/dL Low 8.6-10.3 [facility] Comment on above: Performed By: #### C BC #### [address] Chloride [Moles/Vol] 102 mmol/L Normal 98-107 [facility] Comment on above: Performed By: #### C BC #### [address] CO2 [Moles/Vol] 26.1 mmol/L Normal 21.0-31.0 [facility] Comment on above: Performed By: #### C BC #### [address] Creatinine [Mass/Vol] 0.74 mg/dL Normal 0.70-1.30 [facility] Comment on above: Performed By: #### C BC #### [place] [address] [place] Creatinine Clr Calc Pharmacy 81.05 Normal [facility] Comment on above: Performed By: #### C BC #### [address] GFR/1.73 sq M.predicted MDRD (S/P/Bld) [Vol rate/Area] mL/min/{1.73_m2} Normal [facility] Comment on above: Performed By: #### C BC #### [address] Globulin (S) [Mass/Vol] 2.4 g/dL Normal [facility] Comment on above: Performed By: #### C BC #### [address] Glucose [Mass/Vol] 110 mg/dL High 70-100 [facility] Comment on above: Result Comment: [facility] Glucose Reference Range is dependent on time and content of last meal. Glucose of more than 200 mg/dL in a nonstressed, ambulatory subject supports the diagnosis of Diabetes Mellitus. ADA recommended reference range Performed By: #### C BC #### [address] Potassium [Moles/Vol] 3.7 mmol/L Normal 3.5-5.1 [facility] Comment on above: Performed By: #### C BC #### [address] Protein [Mass/Vol] 5.9 g/dL Low 6.4-8.9 [facility] Comment on above: Performed By: #### C BC #### [address] Sodium [Moles/Vol] 136 mmol/L Normal 136-145 [facility] Comment on above: Performed By: #### C BC #### [address] Urea nitrogen [Mass/Vol] 19 mg/dL Normal 7-25 [facility] Comment on above: Performed By: #### C BC #### [address] Creatinine [Mass/volume] in Serum or PlasmaOrdered By: Sea Cevallos on 11-13-2024 Creatinine [Mass/Vol] Creatinine [Mass/v olume] in Serum or Plasma 0.70-1.30 [facility] Eosinophils Auto (Bld) [#/Vo l]Ordered By: Sea Cevallos on 11-13-2024 Eosinophils (Bld) [#/Vol] Automated eosinophil count 0.0-0.45 [facility] Eosinophils/100 WBC Auto (Bl d)Ordered By: Sea Cevallos on 11-13-2024 Eosinophils/100 WBC (Bld) Automated eosinophil % . [facility] Erythrocyte distribution wid th Auto (RBC) [Ratio]Ordered By: Sea Cevallos on 11-13-2024 Erythrocyte distribution width (RBC) [Ratio] Erythrocyte distribution width [Ratio] by Automated count High 12.0-14.8 [facility] Globulin Calc (S) [Mass/Vol] Ordered By: Sea Cevallos on 11-13-2024 Globulin (S) [Mass/Vol] Serum globulin measurement by calculation (mass/volume) [facility] Glucose [Mass/volume] in Ser um or PlasmaOrdered By: Sea Cevallos on 11-13-2024 Glucose [Mass/Vol] Glucose [Mass/volume ] in Serum or Plasma High 70-100 [facility] Comment on above: ADA recommended refe rence rangeRandom Glucose Reference Range is dependent on time and content of last meal. Glucose of more than 200 mg/dL in a nonstressed, ambulatory subject supports the diagnosis of Diabetes Mellitus. Hematocrit Auto (Bld) [Volum e fraction]Ordered By: Sea Cevallos on 11-13-2024 Hematocrit (Bld) [Volume fraction] Hematocrit [Volume Fraction] of Blood by Automated count Low 38.8-50.0 [facility] Hemoglobin [Mass/volume] in BloodOrdered By: Sea Cevallos on 11-13-2024 Hemoglobin (Bld) [Mass/Vol] Hemoglobin [Mass/volume] in Blood 13.0-17.0 [facility] Leukocytes [#/volume] correc jes for nucleated erythrocytes in Blood by Automated counOrdered By: Sea Cevallos on 11-13-2024 WBC corrected for nucl RBC Auto (Bld) [#/Vol] Leukocytes [#/volume] corrected for nucleated erythrocytes in Blood by Automated coun 4.1-10.5 [facility] Lymphocytes Auto (Bld) [#/Vo l]Ordered By: Sea Cevallos on 11-13-2024 Lymphocytes (Bld) [#/Vol] Lymphocytes [#/volume] in Blood by Automated count Low 1.00-4.8 [facility] Lymphocytes/100 WBC Auto (Bl d)Ordered By: Sea Cevallos on 11-13-2024 Lymphocytes/100 WBC (Bld) Lymphocytes/100 leukocytes in Blood by Automated count . [facility] MCH Auto (RBC) [Entitic mass ]Ordered By: Sea Cevallos on 11-13-2024 MCH (RBC) [Entitic mass] MCH [Entitic mass] by Automated count 27.5-35.2 [facility] MCHC Auto (RBC) [Mass/Vol]Or dered By: Sea Cevallos on 11-13-2024 MCHC (RBC) [Mass/Vol] MCHC [Mass/volume] by Automated count 32.5-35.6 [facility] MCV Auto (RBC) [Entitic vol] Ordered By: Sea Cevallos on 11-13-2024 MCV (RBC) [Entitic vol] MCV [Entitic volume] by Automated count High 83.5-101 [facility] Monocytes Auto (Bld) [#/Vol] Ordered By: Sea Cevallos on 11-13-2024 Monocytes (Bld) [#/Vol] Automated blood monocyte count High 0.0-0.8 [facility] Monocytes/100 WBC Auto (Bld) Ordered By: Sea Cevallos on 11-13-2024 Monocytes/100 WBC (Bld) Automated monocyte % . [facility] Neutrophils Auto (Bld) [#/Vo l]Ordered By: Sea Cevallos on 11-13-2024 Neutrophils (Bld) [#/Vol] Neutrophils [#/volume] in Blood by Automated count High 1.8-7.7 [facility] Neutrophils/100 WBC Auto (Bl d)Ordered By: Sea Cevallos on 11-13-2024 Neutrophils/100 WBC (Bld) Automated neutrophil % . [facility] No Panel InformationOrdered By: Sea Cevallos on 11-13-2024 Estimated GFR (CKD-EPI) > 60.0 mL/Min [facility] Creatinine Clearance (Chem 81.05 [facility] Nucleated erythrocytes [Pres ence] in Blood by Automated countOrdered By: Sea Cevallos on 11-13-2024 Nucleated RBC Auto Ql (Bld) Nucleated erythrocytes [Presence] in Blood by Automated count 0-0.5 [facility] Platelet mean volume Auto (B ld) [Entitic vol]Ordered By: Sea Cevallos on 11-13-2024 Platelet mean volume (Bld) [Entitic vol] Platelet mean volume [Entitic volume] in Blood by Automated count 6.6-10.1 [facility] Platelets Auto (Bld) [#/Vol] Ordered By: Sea Cevallos on 11-13-2024 Platelets (Bld) [#/Vol] Platelets [#/volume] in Blood by Automated count 150-450 [facility] Potassium [Moles/volume] in Serum or PlasmaOrdered By: Sea Cevallos on 11-13-2024 Potassium [Moles/Vol] Potassium [Moles/v olume] in Serum or Plasma 3.5-5.1 [facility] Prealbuminon 11-13-2024 Prealbumin [Mass/Vol] 22.9 mg/dL Normal 17.0-34.0 [facility] Comment on above: Result Comment: PERF ORMED BY: [place] [address] PATHOLOGIST FRENCH CORD BINDER ALANNA RUDOLPH M.D. Performed By: #### C BC #### [address] Prealbumin [Mass/volume] in Serum or PlasmaOrdered By: Sea Cevallos on 11-13-2024 Prealbumin [Mass/Vol] Prealbumin [Mass/v olume] in Serum or Plasma 17.0-34.0 [facility] Protein [Mass/volume] in Ser um or PlasmaOrdered By: Sea Cevallos on 11-13-2024 Protein [Mass/Vol] Protein [Mass/volume ] in Serum or Plasma Low 6.4-8.9 [facility] RBC Auto (Bld) [#/Vol]Ordere d By: Sea Cevallos on 11-13-2024 RBC (Bld) [#/Vol] Erythrocytes [#/volu me] in Blood by Automated count Low 3.90-5.60 [facility] Serum or plasma albumin/glob ulin mass ratioOrdered By: Sea Cevallos on 11-13-2024 Albumin/Globulin [Mass ratio] Serum or plasma albumin/globulin mass ratio [facility] Serum or plasma anion gap de terminationOrdered By: Sea Cevallos on 11-13-2024 Anion gap [Moles/Vol] Serum or plasma an ion gap determination 6.0-15.0 [facility] Sodium [Moles/volume] in Ser um or PlasmaOrdered By: Sea Cevallos on 11-13-2024 Sodium [Moles/Vol] Sodium [Moles/volume ] in Serum or Plasma 136-145 [facility] Urea nitrogen [Mass/volume] in Serum or PlasmaOrdered By: Sea Cevallos on 11-13-2024 Urea nitrogen [Mass/Vol] Urea nitrogen [Mass/volume] in Serum or Plasma 7-25 [facility] WBC Auto (Bld) [#/Vol]Ordere d By: Sea Cevallos on 11-13-2024 WBC (Bld) [#/Vol] Leukocytes [#/volume ] in Blood by Automated count 4.1-10.5 [facility] Glucose Glucometer (BldC) [M ass/Vol]Ordered By: Reyes Bridges on 11-12-2024 Glucose [Mass/Vol] Capillary blood gluc ose measurement by glucometer (mass/volume) [facility] Comment on above: Random Glucose Refer ence Range is dependent on time and content of last meal. Glucose of more than 200 mg/dL in a nonstressed, ambulatory subject supports the diagnosis of Diabetes Mellitus. Glucose Poct Glucometerson 0 11-12-2024 Glucose [Mass/Vol] 84 mg/dL Normal [facility] Comment on above: Result Comment: [place] Glucose Reference Range is dependent on time and content of last meal. Glucose of more than 200 mg/dL in a nonstressed, ambulatory subject supports the diagnosis of Diabetes Mellitus. PERFORMED BY: [facility] [address] [place] [address] PATHOLOGIST FRENCH CORD BINDER ALANNA RUDOLPH M.D. Performed By: #### T RIG, BMP, CBC #### [place] [id number] [facility] Basic Metabolic Panelon 10-20 Anion gap [Moles/Vol] 12.6 mmol/L Normal 6.0-15.0 [facility] Comment on above: Performed By: #### A BG #### Point of Care testing , Calcium [Mass/Vol] 8.5 mg/dL Low 8.6-10.3 [facility] Comment on above: Performed By: #### A BG #### Point of Care testing , Chloride [Moles/Vol] 99 mmol/L Normal 98-107 [facility] Comment on above: Performed By: #### A BG #### Point of Care testing , CO2 [Moles/Vol] 26.5 mmol/L Normal 21.0-31.0 [facility] Comment on above: Performed By: #### A BG #### Point of Care testing , Creatinine [Mass/Vol] 0.80 mg/dL Normal 0.70-1.30 [facility] Comment on above: Performed By: #### A BG #### Point of Care testing , Creatinine Clr Calc Pharmacy 80.07 Normal [facility] Comment on above: Result Comment: PERF ORMED BY: [place] [address] PATHOLOGIST FRENCH CORD BINDER ALANNA RUDOLPH M.D. Performed By: #### A BG #### Point of Care testing , GFR/1.73 sq M.predicted MDRD (S/P/Bld) [Vol rate/Area] mL/min/{1.73_m2} Normal [facility] Comment on above: Performed By: #### A BG #### Point of Care testing , Glucose [Mass/Vol] 91 mg/dL Normal 70-100 [facility] Comment on above: Result Comment: [place] Glucose Reference Range is dependent on time and content of last meal. Glucose of more than 200 mg/dL in a nonstressed, ambulatory subject supports the diagnosis of Diabetes Mellitus. ADA recommended reference range Performed By: #### A BG #### Point of Care testing , Potassium [Moles/Vol] 4.1 mmol/L Normal 3.5-5.1 [facility] Comment on above: Performed By: #### A BG #### Point of Care testing , Sodium [Moles/Vol] 134 mmol/L Low 136-145 [facility] Comment on above: Performed By: #### A BG #### Point of Care testing , Urea nitrogen [Mass/Vol] 27 mg/dL High 7-25 [facility] Comment on above: Performed By: #### A BG #### Point of Care testing , Basophils Auto (Bld) [#/Vol] Ordered By: Marciano Mar on 11-11-2024 Basophils (Bld) [#/Vol] Automated basophil count 0.0-0.2 [facility] Basophils/100 WBC Auto (Bld) Ordered By: Marciano Mar on 11-11-2024 Basophils/100 WBC (Bld) Automated basophil % . [facility] Calcium [Mass/volume] in Ser um or PlasmaOrdered By: Marciano Mar on 11-11-2024 Calcium [Mass/Vol] Calcium [Mass/volume ] in Serum or Plasma Low 8.6-10.3 [facility] Carbon dioxide, total [Moles /volume] in Serum or PlasmaOrdered By: Marciano Mar on 11-11-2024 CO2 [Moles/Vol] Carbon dioxide, tota l [Moles/volume] in Serum or Plasma 21.0-31.0 [facility] Chloride [Moles/volume] in S bere or PlasmaOrdered By: Marciano Mar on 11-11-2024 Chloride [Moles/Vol] Chloride [Moles/vol ume] in Serum or Plasma 98-107 [facility] Complete Blood Count Auto Di ffon 11-11-2024 Basophils (Bld) [#/Vol] 0.0 10*3/uL Normal 0.0-0.2 [facility] Comment on above: Result Comment: PERF ORMED BY: [place] [address] PATHOLOGIST FRENCH CORD BINDER ALANNA RUDOLPH M.D. Performed By: #### C BC #### [address] Basophils/100 WBC (Bld) 0.3 % Normal . [facility] Comment on above: Performed By: #### C BC #### [address] Eosinophils (Bld) [#/Vol] 0.0 10*3/uL Normal 0.0-0.45 [facility] Comment on above: Performed By: #### C BC #### [address] Eosinophils/100 WBC (Bld) 0.0 % Normal . [facility] Comment on above: Performed By: #### C BC #### [address] Erythrocyte distribution width (RBC) [Ratio] 16.1 % High 12.0-14.8 [facility] Comment on above: Performed By: #### C BC #### [address] Hematocrit (Bld) [Volume fraction] 40.5 % Normal 38.8-50.0 [facility] Comment on above: Performed By: #### C BC #### [address] Hemoglobin (Bld) [Mass/Vol] 13.8 g/dL Normal 13.0-17.0 [facility] Comment on above: Performed By: #### C BC #### [address] Lymphocytes (Bld) [#/Vol] 0.5 10*3/uL Low 1.00-4.8 [facility] Comment on above: Performed By: #### C BC #### [address] Lymphocytes/100 WBC (Bld) 4.3 % Normal . [facility] Comment on above: Performed By: #### C BC #### [address] MCH (RBC) [Entitic mass] 35.0 pg Normal 27.5-35.2 [facility] Comment on above: Performed By: #### C BC #### [address] MCV (RBC) [Entitic vol] 102.6 fL High 83.5-101 [facility] Comment on above: Performed By: #### C BC #### [address] Mean Corpuscular HGB Conc 34.1 g/dL Normal 32.5-35.6 [facility] Comment on above: Performed By: #### C BC #### [place] [address] [place] Monocytes (Bld) [#/Vol] 1.4 10*3/uL High 0.0-0.8 [facility] Comment on above: Performed By: #### C BC #### [address] Monocytes/100 WBC (Bld) 12.4 % Normal . [facility] Comment on above: Performed By: #### C BC #### [address] Neutrophils (Bld) [#/Vol] 9.5 10*3/uL High 1.8-7.7 [facility] Comment on above: Performed By: #### C BC #### [address] Neutrophils/100 WBC (Bld) 83.0 % Normal . [facility] Comment on above: Performed By: #### C BC #### [address] NRBC% 0.1 /100{WBC} Normal 0-0.5 [facility] Comment on above: Performed By: #### C BC #### [facility] [address] Platelet mean volume (Bld) [Entitic vol] 8.1 fL Normal 6.6-10.1 [facility] Comment on above: Performed By: #### C BC #### [facility] [address] [place] [id number] [facility] Platelets (Bld) [#/Vol] 198 10*3/uL Normal 150-450 [facility] Comment on above: Performed By: #### C BC #### [facility] [address] RBC (Bld) [#/Vol] 3.95 10*6/uL Normal 3.90-5.[address] [facility] Comment on above: Performed By: #### C BC #### [facility] [address] [place] [id number] [facility] WBC (Bld) [#/Vol] 11.5 10*3/uL High 4.1-10.[address] [facility] Comment on above: Performed By: #### C BC #### [address] Creatinine [Mass/volume] in Serum or PlasmaOrdered By: Marciano Mar on 11-11-2024 Creatinine [Mass/Vol] Creatinine [Mass/v olume] in Serum or Plasma 0.70-1.30 [facility] Eosinophils Auto (Bld) [#/Vo l]Ordered By: Marciano Mar on 11-11-2024 Eosinophils (Bld) [#/Vol] Automated eosinophil count 0.0-0.45 [facility] Eosinophils/100 WBC Auto (Bl d)Ordered By: Marciano Mar on 11-11-2024 Eosinophils/100 WBC (Bld) Automated eosinophil % . [facility] Erythrocyte distribution wid th Auto (RBC) [Ratio]Ordered By: Marciano Mar on 11-11-2024 Erythrocyte distribution width (RBC) [Ratio] Erythrocyte distribution width [Ratio] by Automated count High 12.0-14.8 [facility] Glucose Poct Glucometerson 0 11-11-2024 Glucose [Mass/Vol] 113 mg/dL Normal [facility] Comment on above: Result Comment: [place] Glucose Reference Range is dependent on time and content of last meal. Glucose of more than 200 mg/dL in a nonstressed, ambulatory subject supports the diagnosis of Diabetes Mellitus. PERFORMED BY: [place] [address] PATHOLOGIST FRENCH CORD BINDER ALANNA RUDOLPH M.D. Performed By: #### T RIG, BMP, CBC #### [address] Commemt1 Glu2: Cleaned Meter Normal [facility] Comment on above: Result Comment: PERF ORMED BY: [place] [address] PATHOLOGIST FRENCH CORD BINDER ALANNA RUDOLPH M.D. Performed By: #### C BC #### [address] Glucose [Mass/Vol] 102 mg/dL Normal [facility] Comment on above: Result Comment: [place] Glucose Reference Range is dependent on time and content of last meal. Glucose of more than 200 mg/dL in a nonstressed, ambulatory subject supports the diagnosis of Diabetes Mellitus. Performed By: #### C BC #### [address] Glucose [Mass/volume] in Ser um or PlasmaOrdered By: Marciano Mar on 11-11-2024 Glucose [Mass/Vol] Glucose [Mass/volume ] in Serum or Plasma 70-100 [facility] Comment on above: ADA recommended refe rence rangeRandom Glucose Reference Range is dependent on time and content of last meal. Glucose of more than 200 mg/dL in a nonstressed, ambulatory subject supports the diagnosis of Diabetes Mellitus. Hematocrit Auto (Bld) [Volum e fraction]Ordered By: Marciano Mar on 11-11-2024 Hematocrit (Bld) [Volume fraction] Hematocrit [Volume Fraction] of Blood by Automated count 38.8-50.0 [facility] Hemoglobin [Mass/volume] in BloodOrdered By: Marciano Mar on 11-11-2024 Hemoglobin (Bld) [Mass/Vol] Hemoglobin [Mass/volume] in Blood 13.0-17.0 [facility] Leukocytes [#/volume] correc jes for nucleated erythrocytes in Blood by Automated counOrdered By: Marciano Mar on 11-11-2024 WBC corrected for nucl RBC Auto (Bld) [#/Vol] Leukocytes [#/volume] corrected for nucleated erythrocytes in Blood by Automated coun High 4.1-10.5 [facility] Lymphocytes Auto (Bld) [#/Vo l]Ordered By: Marciano Mar on 11-11-2024 Lymphocytes (Bld) [#/Vol] Lymphocytes [#/volume] in Blood by Automated count Low 1.00-4.8 [facility] Lymphocytes/100 WBC Auto (Bl d)Ordered By: Marciano Mar on 11-11-2024 Lymphocytes/100 WBC (Bld) Lymphocytes/100 leukocytes in Blood by Automated count . [facility] MCH Auto (RBC) [Entitic mass ]Ordered By: Marciano Mar on 11-11-2024 MCH (RBC) [Entitic mass] MCH [Entitic mass] by Automated count 27.5-35.2 [facility] MCHC Auto (RBC) [Mass/Vol]Or dered By: Marciano Mar on 11-11-2024 MCHC (RBC) [Mass/Vol] MCHC [Mass/volume] by Automated count 32.5-35.6 [facility] MCV Auto (RBC) [Entitic vol] Ordered By: Marciano Mar on 11-11-2024 MCV (RBC) [Entitic vol] MCV [Entitic volume] by Automated count High 83.5-101 [facility] Monocytes Auto (Bld) [#/Vol] Ordered By: Marciano Mar on 11-11-2024 Monocytes (Bld) [#/Vol] Automated blood monocyte count High 0.0-0.8 [facility] Monocytes/100 WBC Auto (Bld) Ordered By: Marciano Mar on 11-11-2024 Monocytes/100 WBC (Bld) Automated monocyte % . [facility] Neutrophils Auto (Bld) [#/Vo l]Ordered By: Marciano Mar on 11-11-2024 Neutrophils (Bld) [#/Vol] Neutrophils [#/volume] in Blood by Automated count High 1.8-7.7 [facility] Neutrophils/100 WBC Auto (Bl d)Ordered By: Marciano Mar on 11-11-2024 Neutrophils/100 WBC (Bld) Automated neutrophil % . [facility] No Panel InformationOrdered By: Reyes Bridges on 11-11-2024 Bedside Glucose Comment Glu2: cleaned meter [facility] No Panel InformationOrdered By: Marciano Mar on 11-11-2024 Estimated GFR (CKD-EPI) > 60.0 mL/Min [facility] Creatinine Clearance (Chem 80.07 [facility] Nucleated erythrocytes [Pres ence] in Blood by Automated countOrdered By: Marciano Mar on 11-11-2024 Nucleated RBC Auto Ql (Bld) Nucleated erythrocytes [Presence] in Blood by Automated count 0-0.5 [facility] Platelet mean volume Auto (B ld) [Entitic vol]Ordered By: Marciano Mar on 11-11-2024 Platelet mean volume (Bld) [Entitic vol] Platelet mean volume [Entitic volume] in Blood by Automated count 6.6-10.1 [facility] Platelets Auto (Bld) [#/Vol] Ordered By: Marciano Mar on 11-11-2024 Platelets (Bld) [#/Vol] Platelets [#/volume] in Blood by Automated count 150-450 [facility] Potassium [Moles/volume] in Serum or PlasmaOrdered By: Marciano Mar on 11-11-2024 Potassium [Moles/Vol] Potassium [Moles/v olume] in Serum or Plasma 3.5-5.1 [facility] RBC Auto (Bld) [#/Vol]Ordere d By: Marciano Mar on 11-11-2024 RBC (Bld) [#/Vol] Erythrocytes [#/volu me] in Blood by Automated count 3.90-5.60 [facility] Serum or plasma anion gap de terminationOrdered By: Marciano Mar on 11-11-2024 Anion gap [Moles/Vol] Serum or plasma an ion gap determination 6.0-15.0 [facility] Sodium [Moles/volume] in Ser um or PlasmaOrdered By: Marciano Mar on 11-11-2024 Sodium [Moles/Vol] Sodium [Moles/volume ] in Serum or Plasma Low 136-145 [facility] Urea nitrogen [Mass/volume] in Serum or PlasmaOrdered By: Marciano Mar on 11-11-2024 Urea nitrogen [Mass/Vol] Urea nitrogen [Mass/volume] in Serum or Plasma High 7-25 [facility] WBC Auto (Bld) [#/Vol]Ordere d By: Marciano Mar on 11-11-2024 WBC (Bld) [#/Vol] Leukocytes [#/volume ] in Blood by Automated count High 4.1-10.5 [facility] Arterial Blood Gason 025 ABG Base Excess 1.1 mmol/L Normal -3.0-3.0 [facility] Comment on above: Performed By: #### A BG #### Point of Care testing , ABG Frac Inspired O2 30 % Normal [facility] Comment on above: Performed By: #### A BG #### Point of Care testing , ABG Oxygen Content 8.0 mmol/L Normal 6.6-9.7 [facility] Comment on above: Performed By: #### A BG #### Point of Care testing , ABG Oxygen Saturation 95.3 % Normal 95.0-100.0 [facility] Comment on above: Performed By: #### A BG #### Point of Care testing , ABG PCO2 36.0 mm[Hg] Normal 35.0-45.0 [facility] Comment on above: Performed By: #### A BG #### Point of Care testing , ABG PEEP 5 cmH20 Normal [facility] Comment on above: Performed By: #### A BG #### Point of Care testing , ABG PH 7.45 Normal 7.35-7.45 [facility] Comment on above: Performed By: #### A BG #### Point of Care testing , ABG PO2 75.8 mm[Hg] Low 80.0-100.0 [facility] Comment on above: Performed By: #### A BG #### Point of Care testing , ABG TV 500 mL Normal [facility] Comment on above: Performed By: #### A BG #### Point of Care testing , Respiratory Critical Normal [facility] Comment on above: Result Comment: Crit ical Value called on: 11/10/2024 at 04:53 PERFORMED BY: [facility] [address] [place] [address] PATHOLOGIST FRENCH CORD BINDER ALANNA RUDOLPH M.D. Performed By: #### A BG #### Point of Care testing , Set Respiratory Rate 16 Normal [facility] Comment on above: Performed By: #### A BG #### Point of Care testing , VBG Draw Site Right Radial Normal [facility] Comment on above: Performed By: #### A BG #### Point of Care testing , Ventilator Mode AC Normal [facility] Comment on above: Performed By: #### A BG #### Point of Care testing , Arterial Blood GasOrdered By : Reyes Bridges on 11-10-2024 CO2 [Moles/Vol] 25.8 mmol/L Normal 23.0-27.0 [facility] Comment on above: Performed By: #### A BG #### Point of Care testing , HCO3 (Bld) [Moles/Vol] 24.7 mmol/L Normal 23.0-29.0 [facility] Comment on above: Performed By: #### A BG #### Point of Care testing , Basic Metabolic Panelon 10-20 Anion gap [Moles/Vol] 8.5 mmol/L Normal 6.0-15.0 [facility] Comment on above: Performed By: #### A BG #### Point of Care testing , Calcium [Mass/Vol] 8.2 mg/dL Low 8.6-10.3 [facility] Comment on above: Performed By: #### A BG #### Point of Care testing , Chloride [Moles/Vol] 101 mmol/L Normal 98-107 [facility] Comment on above: Performed By: #### A BG #### Point of Care testing , CO2 [Moles/Vol] 27.0 mmol/L Normal 21.0-31.0 [facility] Comment on above: Performed By: #### A BG #### Point of Care testing , Creatinine [Mass/Vol] 0.74 mg/dL Normal 0.70-1.30 [facility] Comment on above: Performed By: #### A BG #### Point of Care testing , Creatinine Clr Calc Pharmacy 79.97 Normal [facility] Comment on above: Result Comment: PERF ORMED BY: [facility] [address] [place] [address] PATHOLOGIST FRENCH CORD BINDER ALANNA RUDOLPH M.D. Performed By: #### A BG #### Point of Care testing , GFR/1.73 sq M.predicted MDRD (S/P/Bld) [Vol rate/Area] mL/min/{1.73_m2} Normal [facility] Comment on above: Performed By: #### A BG #### Point of Care testing , Glucose [Mass/Vol] 115 mg/dL High 70-100 [facility] Comment on above: Result Comment: [place] Glucose Reference Range is dependent on time and content of last meal. Glucose of more than 200 mg/dL in a nonstressed, ambulatory subject supports the diagnosis of Diabetes Mellitus. ADA recommended reference range Performed By: #### A BG #### Point of Care testing , Potassium [Moles/Vol] 4.5 mmol/L Normal 3.5-5.1 [facility] Comment on above: Performed By: #### A BG #### Point of Care testing , Sodium [Moles/Vol] 132 mmol/L Low 136-145 [facility] Comment on above: Performed By: #### A BG #### Point of Care testing , Urea nitrogen [Mass/Vol] 21 mg/dL Normal 7-25 [facility] Comment on above: Performed By: #### A BG #### Point of Care testing , Glucose Poct Glucometerson 0 11-10-2024 Commemt1 Glu2: Cleaned Meter Normal [facility] Comment on above: Result Comment: PERF ORMED BY: [place] [address] PATHOLOGIST FRENCH CORD BINDER ALANNA RUDOLPH M.D. Performed By: #### A BG #### Point of Care testing , Glucose [Mass/Vol] 106 mg/dL Normal [facility] Comment on above: Result Comment: [place] om Glucose Reference Range is dependent on time and content of last meal. Glucose of more than 200 mg/dL in a nonstressed, ambulatory subject supports the diagnosis of Diabetes Mellitus. Performed By: #### A BG #### Point of Care testing , Commemt1 Glu2: Cleaned Meter Normal [facility] Comment on above: Result Comment: PERF ORMED BY: [place] [address] PATHOLOGIST FRENCH CORD BINDER ALANNA RUDOLPH M.D. Performed By: #### T JOSEFINA ELLIOTT, CBC #### [facility] [address] [place] [address] Glucose [Mass/Vol] 106 mg/dL Normal [facility] Comment on above: Result Comment: [place] Glucose Reference Range is dependent on time and content of last meal. Glucose of more than 200 mg/dL in a nonstressed, ambulatory subject supports the diagnosis of Diabetes Mellitus. Performed By: #### T LEXI BMP, CBC #### [facility] [address] [place] [address] Commemt1 Glu2: Cleaned Meter Normal [facility] Comment on above: Result Comment: PERF ORMED BY: [place] [address] PATHOLOGIST FRENCH CORD BINDER ALANNA RUDOLPH M.D. Performed By: #### G LULS #### Point of Care testing , Glucose [Mass/Vol] 106 mg/dL Normal [facility] Comment on above: Result Comment: [place] om Glucose Reference Range is dependent on time and content of last meal. Glucose of more than 200 mg/dL in a nonstressed, ambulatory subject supports the diagnosis of Diabetes Mellitus. Performed By: #### G LULS #### Point of Care testing , Commemt1 Glu2: Cleaned Meter Normal [facility] Comment on above: Result Comment: PERF ORMED BY: [facility] [address] [place] [address] PATHOLOGIST FRENCH CORD BINDER ALANNA RUDOLPH M.D. Performed By: #### G LULS #### Point of Care testing , Glucose [Mass/Vol] 116 mg/dL Normal [facility] Comment on above: Result Comment: [place] om Glucose Reference Range is dependent on time and content of last meal. Glucose of more than 200 mg/dL in a nonstressed, ambulatory subject supports the diagnosis of Diabetes Mellitus. Performed By: #### G LULS #### Point of Care testing , No Panel InformationOrdered By: Reyes Bridges on 11-10-2024 Arterial Blood Base Excess 1.1 mmol/L -3.0-3.0 [facility] Arterial Blood Oxygen Content 8.0 mmol/L 6.6-9.7 [facility] Arterial Blood Oxygen Saturation 95.3 % 95.0-100.0 [facility] Arterial Blood Partial Pressure CO2 36.0 mm[Hg] 35.0-45.0 [facility] Arterial Blood Partial Pressure O2 75.8 mm[Hg] Low 80.0-100.0 [facility] Arterial Blood pH 7.45 7.35-7.45 [facility] Blood Gas Critical Value See comment [facility] Comment on above: Critical Value swapnil rodrigues on: 11/10/2024 at 04:53 Blood Gas PEEP 5 cmH2O [facility] Blood Gas Sample Site Right radial F [facility] Blood Gas Set Respiration Rate 16 [facility] Blood Gas Tidal Volume 500 mL [facility] Blood Gas Ventilator Mode Ac [facility] FiO2 30 % [facility] X-ray reportOrdered By: Jorge Stewart on 11-10-2024 Study report [facility] Main [address] [address] XRay Report Signed Patient: Michael Vaughn MR#: [id number] : 1950 Acct:[id number] Age/Sex: 74 / M ADM Date: 5 Loc: 4C Room: [address] [place] [address] Type: ADM IN Attending Dr: Reyes Bridges DO Copies to: DO Brodie Arias MD~ Ordering Provider: Brodie Nascimento MD Date of Service: 11/10/24 XR/XR chest 1V portable: intubated Plain film chest Single view HISTORY: Daily assessment of ventilated patient COMPARISON: 11/09/2024 FINDINGS: SUPPORT DEVICES: Stable POSTSURGICAL CHANGES: Stable HEART: Within normal limits PULMONARY RYAN: Within normal limits MEDIASTINUM: Unremarkable LUNGS AND PLEURA: Continued lung volumes with basilar parenchymal densities. Mild right hemidiaphragm elevation. BONY STRUCTURES: Intact ADDITIONAL FINDINGS None XR/XR chest 1V portable IMPRESSION: Stable chest Impression dictated by: Alhaji Stewart M.D.11/10/2024 5:47 AM Dictation Location: [place] [address] Transcribed By: [facility] 11/10/24 0547 Dictated By: Alhaji Stewart DO 11/10/24 0546 Signed By: 11/10/24 0547 [facility] XR chest 1V portableon 11-10 XR chest 1V portable [facility] Main [address] [address] XRay Report Signed Patient: Michael Vaughn MR#: [id number] 94 : 1950 Acct:[id number] Age/Sex: 74 / M ADM Date: 11/04/24 Loc: 4C Room: [address] [place] [address] Type: ADM IN Attending Dr: Reyes Bridges DO Copies to: DO Brodie Arias MD Ordering Provider: Brodie Nascimento MD Date of Service: 11/10/24 XR/XR chest 1V portable: intubated Plain film chest Single view HISTORY: Daily assessment of ventilated patient COMPARISON: 11/09/2024 FINDINGS: SUPPORT DEVICES: Stable POSTSURGICAL CHANGES: Stable HEART: Within normal limits PULMONARY RYAN: Within normal limits MEDIASTINUM: Unremarkable LUNGS AND PLEURA: Continued lung volumes with basilar parenchymal densities. Mild right hemidiaphragm elevation. BONY STRUCTURES: Intact ADDITIONAL FINDINGS None XR/XR chest 1V portable IMPRESSION: Stable chest Impression dictated by: Alhaji Stewart M.D.11/10/2024 5:47 AM Dictation Location: [facility] Transcribed By: [facility] 11/10/24 0547 Dictated By: Alhaji Stewart DO 11/10/24 0546 Signed By: 11/10/24 0547 Normal [facility] Arterial Blood Gason 025 ABG Base Excess 2.4 mmol/L Normal -3.0-3.0 [facility] Comment on above: Performed By: #### A BG #### Point of Care testing , ABG Frac Inspired O2 40 % Normal [facility] Comment on above: Performed By: #### A BG #### Point of Care testing , ABG Oxygen Content 7.9 mmol/L Normal 6.6-9.7 [facility] Comment on above: Performed By: #### A BG #### Point of Care testing , ABG Oxygen Saturation 95.3 % Normal 95.0-100.0 [facility] Comment on above: Performed By: #### A BG #### Point of Care testing , ABG PCO2 38.9 mm[Hg] Normal 35.0-45.0 [facility] Comment on above: Performed By: #### A BG #### Point of Care testing , ABG PEEP 10 cmH20 Normal [facility] Comment on above: Performed By: #### A BG #### Point of Care testing , ABG PH 7.45 Normal 7.35-7.45 [facility] Comment on above: Performed By: #### A BG #### Point of Care testing , ABG PO2 78.9 mm[Hg] Low 80.0-100.0 [facility] Comment on above: Performed By: #### A BG #### Point of Care testing , ABG TV 500 mL Normal [facility] Comment on above: Performed By: #### A BG #### Point of Care testing , CO2 [Moles/Vol] 27.6 mmol/L High 23.0-27.0 [facility] Comment on above: Performed By: #### A BG #### Point of Care testing , HCO3 (Bld) [Moles/Vol] 26.4 mmol/L Normal 23.0-29.0 [facility] Comment on above: Performed By: #### A BG #### Point of Care testing , Respiratory Critical Normal [facility] Comment on above: Result Comment: Crit ical Value called on: 11/09/2024 at 05:13 PERFORMED BY: [place] [address] PATHOLOGIST FRENCH CORD BINDER ALANNA RUDOLPH M.D. Performed By: #### A BG #### Point of Care testing , Set Respiratory Rate 16 Normal [facility] Comment on above: Performed By: #### A BG #### Point of Care testing , VBG Draw Site Left Radial Normal [facility] Comment on above: Performed By: #### A BG #### Point of Care testing , Ventilator Mode AC Normal [facility] Comment on above: Performed By: #### A BG #### Point of Care testing , Basic Metabolic Panelon 10-20 Anion gap [Moles/Vol] 10.9 mmol/L Normal 6.0-15.0 [facility] Comment on above: Performed By: #### C BC #### [address] [address] [place] Calcium [Mass/Vol] 8.2 mg/dL Low 8.6-10.3 [facility] Comment on above: Performed By: #### C BC #### [address] [address] [place] Chloride [Moles/Vol] 102 mmol/L Normal 98-107 [facility] Comment on above: Performed By: #### C BC #### [address] CO2 [Moles/Vol] 26.5 mmol/L Normal 21.0-31.0 [facility] Comment on above: Performed By: #### C BC #### [place] [address] [place] Creatinine [Mass/Vol] 0.67 mg/dL Low 0.70-1.30 [facility] Comment on above: Performed By: #### C BC #### [place] [address] [place] Creatinine Clr Calc Pharmacy 79.83 Normal [facility] Comment on above: Performed By: #### C BC #### [place] [address] [place] GFR/1.73 sq M.predicted MDRD (S/P/Bld) [Vol rate/Area] mL/min/{1.73_m2} Normal [facility] Comment on above: Performed By: #### C BC #### [address] Glucose [Mass/Vol] 147 mg/dL High 70-100 [facility] Comment on above: Result Comment: [place] Glucose Reference Range is dependent on time and content of last meal. Glucose of more than 200 mg/dL in a nonstressed, ambulatory subject supports the diagnosis of Diabetes Mellitus. ADA recommended reference range Performed By: #### C BC #### [place] [address] [place] Potassium [Moles/Vol] 4.4 mmol/L Normal 3.5-5.1 [facility] Comment on above: Performed By: #### C BC #### [place] [address] [place] Sodium [Moles/Vol] 135 mmol/L Low 136-145 [facility] Comment on above: Performed By: #### C BC #### [address] Urea nitrogen [Mass/Vol] 21 mg/dL Normal 7-25 [facility] Comment on above: Performed By: #### C BC #### [address] Complete Blood Count Auto Di ffon 11-09-2024 Basophils (Bld) [#/Vol] 0.0 10*3/uL Normal 0.0-0.2 [facility] Comment on above: Result Comment: PERF ORMED BY: [place] [address] PATHOLOGIST FRENCH CORD BINDER ALANNA RUDOLPH M.D. Performed By: #### C BC #### [address] Basophils/100 WBC (Bld) 0.2 % Normal . [facility] Comment on above: Performed By: #### C BC #### [address] Eosinophils (Bld) [#/Vol] 0.0 10*3/uL Normal 0.0-0.45 [facility] Comment on above: Performed By: #### C BC #### [address] Eosinophils/100 WBC (Bld) 0.0 % Normal . [facility] Comment on above: Performed By: #### C BC #### [address] Erythrocyte distribution width (RBC) [Ratio] 16.1 % High 12.0-14.8 [facility] Comment on above: Performed By: #### C BC #### [address] Hematocrit (Bld) [Volume fraction] 37.9 % Low 38.8-50.0 [facility] Comment on above: Performed By: #### C BC #### [address] Hemoglobin (Bld) [Mass/Vol] 12.9 g/dL Low 13.0-17.0 [facility] Comment on above: Performed By: #### C BC #### [address] Lymphocytes (Bld) [#/Vol] 0.7 10*3/uL Low 1.00-4.8 [facility] Comment on above: Performed By: #### C BC #### [address] Lymphocytes/100 WBC (Bld) 9.4 % Normal . [facility] Comment on above: Performed By: #### C BC #### [address] MCH (RBC) [Entitic mass] 35.9 pg High 27.5-35.2 [facility] Comment on above: Performed By: #### C BC #### [address] MCV (RBC) [Entitic vol] 105.6 fL High 83.5-101 [facility] Comment on above: Performed By: #### C BC #### [address] Mean Corpuscular HGB Conc 34.0 g/dL Normal 32.5-35.6 [facility] Comment on above: Performed By: #### C BC #### [address] Monocytes (Bld) [#/Vol] 0.5 10*3/uL Normal 0.0-0.8 [facility] Comment on above: Performed By: #### C BC #### [place] [address] [place] Monocytes/100 WBC (Bld) 6.2 % Normal . [facility] Comment on above: Performed By: #### C BC #### [address] Neutrophils (Bld) [#/Vol] 6.5 10*3/uL Normal 1.8-7.7 [facility] Comment on above: Performed By: #### C BC #### [address] Neutrophils/100 WBC (Bld) 84.2 % Normal . [facility] Comment on above: Performed By: #### C BC #### [address] NRBC% 0.3 /100{WBC} Normal 0-0.5 [facility] Comment on above: Performed By: #### C BC #### [address] Platelet mean volume (Bld) [Entitic vol] 8.5 fL Normal 6.6-10.1 [facility] Comment on above: Performed By: #### C BC #### [address] Platelets (Bld) [#/Vol] 161 10*3/uL Normal 150-450 [facility] Comment on above: Performed By: #### C BC #### [address] RBC (Bld) [#/Vol] 3.59 10*6/uL Low 3.90-5.[address] [facility] Comment on above: Performed By: #### C BC #### [address] WBC (Bld) [#/Vol] 7.7 10*3/uL Normal 4.1-10.5 [facility] Comment on above: Performed By: #### C BC #### [address] Glucose Poct Glucometerson 0 11-09-2024 Commemt1 Glu2: Cleaned Meter Normal [facility] Comment on above: Result Comment: PERF ORMED BY: [place] [address] PATHOLOGIST FRENCH CORD BINDER ALANNA RUDOLPH M.D. Performed By: #### A BG #### Point of Care testing , Glucose [Mass/Vol] 117 mg/dL Normal [facility] Comment on above: Result Comment: [place] om Glucose Reference Range is dependent on time and content of last meal. Glucose of more than 200 mg/dL in a nonstressed, ambulatory subject supports the diagnosis of Diabetes Mellitus. Performed By: #### A BG #### Point of Care testing , Commemt1 Glu2: Cleaned Meter Normal [facility] Comment on above: Result Comment: PERF ORMED BY: [place] [address] PATHOLOGIST FRENCH CORD BINDER ALANNA RUDOLPH M.D. Performed By: #### G LULS #### Point of Care testing , Glucose [Mass/Vol] 155 mg/dL Normal [facility] Comment on above: Result Comment: [place] om Glucose Reference Range is dependent on time and content of last meal. Glucose of more than 200 mg/dL in a nonstressed, ambulatory subject supports the diagnosis of Diabetes Mellitus. Performed By: #### G LULS #### Point of Care testing , Glucose [Mass/Vol] 126 mg/dL Normal [facility] Comment on above: Result Comment: [place] om Glucose Reference Range is dependent on time and content of last meal. Glucose of more than 200 mg/dL in a nonstressed, ambulatory subject supports the diagnosis of Diabetes Mellitus. PERFORMED BY: [place] [address] PATHOLOGIST FRENCH CORD BINDER ALANNA RUDOLPH M.D. Performed By: #### C BC #### [place] [id number] [facility] Magnesiumon 11-09-2024 Magnesium [Mass/Vol] 2.6 mg/dL Normal 1.9-2.7 [facility] Comment on above: Result Comment: PERF ORMED BY: [place] [address] PATHOLOGIST FRENCH CORD BINDER ALANNA RUDOLPH M.D. Performed By: #### C BC #### [address] Magnesium [Mass/volume] in S bere or PlasmaOrdered By: Marciano Mar on 11-09-2024 Magnesium [Mass/Vol] Magnesium [Mass/vol ume] in Serum or Plasma 1.9-2.7 [facility] Phosphate [Mass/volume] in S bere or PlasmaOrdered By: Marciano Mar on 11-09-2024 Phosphate [Mass/Vol] Phosphate [Mass/vol ume] in Serum or Plasma 2.5-4.5 [facility] Phosphoruson 11-09-2024 Phosphate [Mass/Vol] 4.3 mg/dL Normal 2.5-4.5 [facility] Comment on above: Performed By: #### C BC #### [facility] [address] [place] [address] Triglyceride [Mass/volume] i n Serum or PlasmaOrdered By: Brodie Nascimento on 11-09-2024 Triglyceride [Mass/Vol] Triglyceride [Mass/volume] in Serum or Plasma 35-149 [facility] Comment on above: TRIG ATP III CLASSIF ICATIONTRIG less than 150 mg/dL NormalTRIG 150-199 mg/dL Borderline highTRIG 200-500 mg/dL High TRIG greater than 500 mg/dL Very highStandard traceable to the Center for Disease Conrtrol and Prevention (CDC) test method. Triglycerideson 11-09-2024 Triglyceride [Mass/Vol] 47 mg/dL Normal 35-149 [facility] Comment on above: Result Comment: TRIG ATP III CLASSIFICATION TRIG less than 150 mg/dL Normal TRIG 150-199 mg/dL Borderline high TRIG 200-500 mg/dL High TRIG greater than 500 mg/dL Very high Standard traceable to the Center for Disease Conrtrol and Prevention (CDC) test method. PERFORMED BY: [place] [address] PATHOLOGIST FRENCH CORD BINDER ALANNA RUDOLPH M.D. Performed By: #### E RBMP #### [address] Point of Care testing , X-ray reportOrdered By: Jorge Stewart on 11-09-2024 Study report [facility] Main [place] [address] [place] [address] XRay Report Signed Patient: Michael Vaughn MR#: [id number] : 1950 Acct:[id number] Age/Sex: 74 / M ADM Date: 5 Loc: Room: [address] [place] [address] Type: ADM IN Attending Dr: Reyes Bridges DO Copies to: DO Brodie Arias MD~ Ordering Provider: Brodie Nascimento MD Date of Service: 11/09/24 XR/XR chest 1V portable: intubated Plain film chest Single view HISTORY: Daily assessment of ventilated patient COMPARISON: 11/08/2024 FINDINGS: SUPPORT DEVICES: Stable POSTSURGICAL CHANGES: None HEART: Within normal limits PULMONARY RYAN: Within normal limits MEDIASTINUM: Unremarkable LUNGS AND PLEURA: Continued minor basilar parenchymal densities. Continued lowlung volumes. BONY STRUCTURES: Intact ADDITIONAL FINDINGS None XR/XR chest 1V portable IMPRESSION: Stable chest Impression dictated by: Alhaji Stewart M.D.11/09/2024 6:27 AM Dictation Location: [place] [address] Transcribed By: [facility] 11/09/24626 Dictated By: Alhaji Stewart DO 11/09/2427 Signed By: 11/09/24 0627 [facility] XR chest 1V portableon 11-09 XR chest 1V portable [facility] Main [address] [address] XRay Report Signed Patient: Michael Vaughn MR#: [id number] 94 : 1950 Acct:[id number] Age/Sex: 74 / M ADM Date: 11/04/24 Loc: Room: [address] [place] [address] Type: ADM IN Attending Dr: Reyes Bridges DO Copies to: DO Brodie Arias MD Ordering Provider: Brodie Nascimento MD Date of Service: 11/09/24 XR/XR chest 1V portable: intubated Plain film chest Single view HISTORY: Daily assessment of ventilated patient COMPARISON: 11/08/2024 FINDINGS: SUPPORT DEVICES: Stable POSTSURGICAL CHANGES: None HEART: Within normal limits PULMONARY RYAN: Within normal limits MEDIASTINUM: Unremarkable LUNGS AND PLEURA: Continued minor basilar parenchymal densities. Continued low lung volumes. BONY STRUCTURES: Intact ADDITIONAL FINDINGS None XR/XR chest 1V portable IMPRESSION: Stable chest Impression dictated by: Alhaji Stewart M.D.11/09/2024 6:27 AM Dictation Location: [place] [address] Transcribed By: [facility] 11/09/24626 Dictated By: Alhaji Stewart DO 11/09/24626 Signed By: 11/09/[address] Normal [facility] Arterial Blood Gason 025 ABG Base Excess 2.9 mmol/L Normal -3.0-3.0 [facility] Comment on above: Performed By: #### A BG #### Point of Care testing , ABG Frac Inspired O2 40 % Normal [facility] Comment on above: Performed By: #### A BG #### Point of Care testing , ABG Oxygen Content 7.6 mmol/L Normal 6.6-9.7 [facility] Comment on above: Performed By: #### A BG #### Point of Care testing , ABG Oxygen Saturation 95.9 % Normal 95.0-100.0 [facility] Comment on above: Performed By: #### A BG #### Point of Care testing , ABG PCO2 35.9 mm[Hg] Normal 35.0-45.0 [facility] Comment on above: Performed By: #### A BG #### Point of Care testing , ABG PEEP 10 cmH20 Normal [facility] Comment on above: Performed By: #### A BG #### Point of Care testing , ABG PH 7.48 High 7.35-7.45 [facility] Comment on above: Performed By: #### A BG #### Point of Care testing , ABG PO2 79.5 mm[Hg] Low 80.0-100.0 [facility] Comment on above: Performed By: #### A BG #### Point of Care testing , ABG TV 500 mL Normal [facility] Comment on above: Performed By: #### A BG #### Point of Care testing , CO2 [Moles/Vol] 27.3 mmol/L High 23.0-27.0 [facility] Comment on above: Performed By: #### A BG #### Point of Care testing , HCO3 (Bld) [Moles/Vol] 26.2 mmol/L Normal 23.0-29.0 [facility] Comment on above: Performed By: #### A BG #### Point of Care testing , Respiratory Critical Normal [facility] Comment on above: Result Comment: Crit ical Value called on: 11/08/2024 at 04:55 PERFORMED BY: [facility] [address] [place] [address] PATHOLOGIST FRENCH CORD BINDER ALANNA RUDOLPH M.D. Performed By: #### A BG #### Point of Care testing , Set Respiratory Rate 16 Normal [facility] Comment on above: Performed By: #### A BG #### Point of Care testing , VBG Draw Site Left Brachial Normal [facility] Comment on above: Performed By: #### A BG #### Point of Care testing , Ventilator Mode AC Normal [facility] Comment on above: Performed By: #### A BG #### Point of Care testing , Basic Metabolic Panelon 10-20 Anion gap [Moles/Vol] 10.0 mmol/L Normal 6.0-15.0 [facility] Comment on above: Performed By: #### A BG #### Point of Care testing , Calcium [Mass/Vol] 8.5 mg/dL Low 8.6-10.3 [facility] Comment on above: Performed By: #### A BG #### Point of Care testing , Chloride [Moles/Vol] 102 mmol/L Normal 98-107 [facility] Comment on above: Performed By: #### A BG #### Point of Care testing , CO2 [Moles/Vol] 28.1 mmol/L Normal 21.0-31.0 [facility] Comment on above: Performed By: #### A BG #### Point of Care testing , Creatinine [Mass/Vol] 0.74 mg/dL Normal 0.70-1.30 [facility] Comment on above: Performed By: #### A BG #### Point of Care testing , Creatinine Clr Calc Pharmacy 80.25 Normal [facility] Comment on above: Performed By: #### A BG #### Point of Care testing , GFR/1.73 sq M.predicted MDRD (S/P/Bld) [Vol rate/Area] mL/min/{1.73_m2} Normal [facility] Comment on above: Performed By: #### A BG #### Point of Care testing , Glucose [Mass/Vol] 124 mg/dL High 70-100 [facility] Comment on above: Result Comment: [place] Glucose Reference Range is dependent on time and content of last meal. Glucose of more than 200 mg/dL in a nonstressed, ambulatory subject supports the diagnosis of Diabetes Mellitus. ADA recommended reference range Performed By: #### A BG #### Point of Care testing , Potassium [Moles/Vol] 4.1 mmol/L Normal 3.5-5.1 [facility] Comment on above: Performed By: #### A BG #### Point of Care testing , Sodium [Moles/Vol] 136 mmol/L Normal 136-145 [facility] Comment on above: Performed By: #### A BG #### Point of Care testing , Urea nitrogen [Mass/Vol] 20 mg/dL Normal 7-25 [facility] Comment on above: Performed By: #### A BG #### Point of Care testing , Complete Blood Count Auto Di ffon 11-08-2024 Basophils (Bld) [#/Vol] 0.0 10*3/uL Normal 0.0-0.2 [facility] Comment on above: Result Comment: PERF ORMED BY: [facility] [place] [address] PATHOLOGIST FRENCH CORD BINDER ALANNA RUDOLPH M.D. Performed By: #### A BG #### Point of Care testing , Basophils/100 WBC (Bld) 0.2 % Normal . [facility] [facility]ician Group Comment on above: Performed By: #### A BG #### Point of Care testing , Eosinophils (Bld) [#/Vol] 0.0 10*3/uL Normal 0.0-0.45 [facility] Comment on above: Performed By: #### A BG #### Point of Care testing , Eosinophils/100 WBC (Bld) 0.0 % Normal . [facility] Comment on above: Performed By: #### A BG #### Point of Care testing , Erythrocyte distribution width (RBC) [Ratio] 16.2 % High 12.0-14.8 [facility] Comment on above: Performed By: #### A BG #### Point of Care testing , Hematocrit (Bld) [Volume fraction] 35.4 % Low 38.8-50.0 [facility] Comment on above: Performed By: #### A BG #### Point of Care testing , Hemoglobin (Bld) [Mass/Vol] 12.0 g/dL Low 13.0-17.0 [facility] Comment on above: Performed By: #### A BG #### Point of Care testing , Lymphocytes (Bld) [#/Vol] 0.9 10*3/uL Low 1.00-4.8 [facility] Comment on above: Performed By: #### A BG #### Point of Care testing , Lymphocytes/100 WBC (Bld) 8.7 % Normal . [facility] Comment on above: Performed By: #### A BG #### Point of Care testing , MCH (RBC) [Entitic mass] 34.8 pg Normal 27.5-35.2 [facility] Comment on above: Performed By: #### A BG #### Point of Care testing , MCV (RBC) [Entitic vol] 102.8 fL High 83.5-101 [facility] Comment on above: Performed By: #### A BG #### Point of Care testing , Mean Corpuscular HGB Conc 33.9 g/dL Normal 32.5-35.6 [facility] Comment on above: Performed By: #### A BG #### Point of Care testing , Monocytes (Bld) [#/Vol] 0.8 10*3/uL Normal 0.0-0.8 [facility] Comment on above: Performed By: #### A BG #### Point of Care testing , Monocytes/100 WBC (Bld) 8.2 % Normal . [facility] Comment on above: Performed By: #### A BG #### Point of Care testing , Neutrophils (Bld) [#/Vol] 8.4 10*3/uL High 1.8-7.7 [facility] Comment on above: Performed By: #### A BG #### Point of Care testing , Neutrophils/100 WBC (Bld) 82.9 % Normal . [facility] Comment on above: Performed By: #### A BG #### Point of Care testing , NRBC% 0.1 /100{WBC} Normal 0-0.5 [facility] Comment on above: Performed By: #### A BG #### Point of Care testing , Platelet mean volume (Bld) [Entitic vol] 8.5 fL Normal 6.6-10.1 [facility] Comment on above: Performed By: #### A BG #### Point of Care testing , Platelets (Bld) [#/Vol] 187 10*3/uL Normal 150-450 [facility] Comment on above: Performed By: #### A BG #### Point of Care testing , RBC (Bld) [#/Vol] 3.44 10*6/uL Low 3.90-5.[address] [facility] Comment on above: Performed By: #### A BG #### Point of Care testing , WBC (Bld) [#/Vol] 10.1 10*3/uL Normal 4.1-10.[address] [facility] Comment on above: Performed By: #### A BG #### Point of Care testing , Glucose Poct Glucometerson 0 4 Glucose [Mass/Vol] 181 mg/dL Normal [facility] Comment on above: Result Comment: [place] Glucose Reference Range is dependent on time and content of last meal. Glucose of more than 200 mg/dL in a nonstressed, ambulatory subject supports the diagnosis of Diabetes Mellitus. PERFORMED BY: [place] [address] PATHOLOGIST FRENCH CORD BINDER ALANNA RUDOLPH M.D. Performed By: #### E RBMP #### [address] Point of Care testing , Glucose [Mass/Vol] 135 mg/dL Normal [facility] Comment on above: Result Comment: [place] Glucose Reference Range is dependent on time and content of last meal. Glucose of more than 200 mg/dL in a nonstressed, ambulatory subject supports the diagnosis of Diabetes Mellitus. PERFORMED BY: [place] [address] PATHOLOGIST FRENCH CORD BINDER ALANNA RUDOLPH M.D. Performed By: #### E RBMP #### [place] [id number] [facility] Point of Care testing , Glucose [Mass/Vol] 139 mg/dL Normal [facility] Comment on above: Result Comment: [place] Glucose Reference Range is dependent on time and content of last meal. Glucose of more than 200 mg/dL in a nonstressed, ambulatory subject supports the diagnosis of Diabetes Mellitus. PERFORMED BY: [place] [address] PATHOLOGIST FRENCH CORD BINDER ALANNA RUDOLPH M.D. Performed By: #### G LULS #### Point of Care testing , Triglycerideson 11-08-2024 Triglyceride [Mass/Vol] 55 mg/dL Normal 35-149 [facility] Comment on above: Result Comment: TRIG ATP III CLASSIFICATION TRIG less than 150 mg/dL Normal TRIG 150-199 mg/dL Borderline high TRIG 200-500 mg/dL High TRIG greater than 500 mg/dL Very high Standard traceable to the Center for Disease Conrtrol and Prevention (CDC) test method. PERFORMED BY: [place] [address] PATHOLOGIST FRENCH CORD BINDER ALANNA RUDOLPH M.D. Performed By: #### A BG #### Point of Care testing , X-ray reportOrdered By: Jorge Stewart on 11-08-2024 Study report [facility] Main [address] [address] XRay Report Signed Patient: Michael Vaughn MR#: [id number] : 1950 Acct:[id number] Age/Sex: 74 / M ADM Date: 5 Loc: 4C Room: [address] [place] [address] Type: ADM IN Attending Dr: Reyes Bridges DO Copies to: DO Brodie Arias MD~ Ordering Provider: Brodie Nascimento MD Date of Service: 11/08/24 XR/XR chest 1V portable: intubated Plain film chest Single view HISTORY: Daily assessment of ventilated patient COMPARISON: 11/07/2024 FINDINGS: SUPPORT DEVICES: Stable POSTSURGICAL CHANGES: None HEART: Within normal limits PULMONARY RYAN: Within normal limits MEDIASTINUM: Unremarkable LUNGS AND PLEURA: Similar minor basilar parenchymal densities. Continued low lung volumes. BONY STRUCTURES: Intact ADDITIONAL FINDINGS None XR/XR chest 1V portable IMPRESSION: Stable chest Impression dictated by: Alhaji Stewart M.D.11/08/2024 8:16 AM Dictation Location: [place] [address] Transcribed By: [facility] 11/08/24 0816 Dictated By: Alhaji Stewart DO 11/08/24 0758 Signed By: 11/08/24 0816 [facility] XR chest 1V portableon 11-08 XR chest 1V portable [facility] Main [address] [address] XRay Report Signed Patient: Michael Vaughn MR#: [id number] 94 : 1950 Acct:[id number] Age/Sex: 74 / M ADM Date: 11/04/24 Loc: 4C Room: [address] [place] [address] Type: ADM IN Attending Dr: Reyes Bridges DO Copies to: DO Brodie Arias MD Ordering Provider: Brodie Nascimento MD Date of Service: 11/08/24 XR/XR chest 1V portable: intubated Plain film chest Single view HISTORY: Daily assessment of ventilated patient COMPARISON: 11/07/2024 FINDINGS: SUPPORT DEVICES: Stable POSTSURGICAL CHANGES: None HEART: Within normal limits PULMONARY RYAN: Within normal limits MEDIASTINUM: Unremarkable LUNGS AND PLEURA: Similar minor basilar parenchymal densities. Continued low lung volumes. BONY STRUCTURES: Intact ADDITIONAL FINDINGS None XR/XR chest 1V portable IMPRESSION: Stable chest Impression dictated by: Alhaji Stewart M.D.11/08/2024 8:16 AM Dictation Location: [place] [address] Transcribed By: [facility] 11/08/24 0816 Dictated By: Alhaji Stewart DO 11/08/24 0758 Signed By: 11/08/24 0816 Normal [facility] Arterial Blood Gason 025 ABG Base Excess 1.2 mmol/L Normal -3.0-3.0 [facility] Comment on above: Performed By: #### A BG #### Point of Care testing , ABG Frac Inspired O2 40 % Normal [facility] Comment on above: Performed By: #### A BG #### Point of Care testing , ABG Oxygen Content 7.6 mmol/L Normal 6.6-9.7 [facility] Comment on above: Performed By: #### A BG #### Point of Care testing , ABG Oxygen Saturation 96.8 % Normal 95.0-100.0 [facility] Comment on above: Performed By: #### A BG #### Point of Care testing , ABG PCO2 40.0 mm[Hg] Normal 35.0-45.0 [facility] Comment on above: Performed By: #### A BG #### Point of Care testing , ABG PEEP 10 cmH20 Normal [facility] Comment on above: Performed By: #### A BG #### Point of Care testing , ABG PH 7.42 Normal 7.35-7.45 [facility] Comment on above: Performed By: #### A BG #### Point of Care testing , ABG PO2 92.7 mm[Hg] Normal 80.0-100.0 [facility] Comment on above: Performed By: #### A BG #### Point of Care testing , ABG TV 500 mL Normal [facility] Comment on above: Performed By: #### A BG #### Point of Care testing , CO2 [Moles/Vol] 26.8 mmol/L Normal 23.0-27.0 [facility] Comment on above: Performed By: #### A BG #### Point of Care testing , HCO3 (Bld) [Moles/Vol] 25.6 mmol/L Normal 23.0-29.0 [facility] Comment on above: Performed By: #### A BG #### Point of Care testing , Respiratory Critical Normal [facility] Comment on above: Result Comment: Crit ical Value called on: 11/07/2024 at 06:16 PERFORMED BY: [place] [address] PATHOLOGIST FRENCH CORD BINDER ALANNA RUDOLPH M.D. Performed By: #### A BG #### Point of Care testing , Set Respiratory Rate 16 Normal [facility] Comment on above: Performed By: #### A BG #### Point of Care testing , VBG Draw Site Right Brachial Normal [facility] Comment on above: Performed By: #### A BG #### Point of Care testing , Ventilator Mode AC Normal [facility] Comment on above: Performed By: #### A BG #### Point of Care testing , Basic Metabolic Panelon 10-20 Anion gap [Moles/Vol] 8.7 mmol/L Normal 6.0-15.0 [facility] Comment on above: Performed By: #### T RIG, BMP, CBC #### [address] Calcium [Mass/Vol] 8.3 mg/dL Low 8.6-10.3 [facility] Comment on above: Performed By: #### T RIG, BMP, CBC #### [facility] [address] [place] [address] [place] Chloride [Moles/Vol] 106 mmol/L Normal 98-107 [facility] Comment on above: Performed By: #### T RIG, BMP, CBC #### [facility] [address] [place] [address] [place] CO2 [Moles/Vol] 27.2 mmol/L Normal 21.0-31.0 [facility] Comment on above: Performed By: #### T RIG, BMP, CBC #### [facility] [address] [place] [address] [place] Creatinine [Mass/Vol] 0.76 mg/dL Normal 0.70-1.30 [facility] Comment on above: Performed By: #### T RIG, BMP, CBC #### [facility] [address] [place] [address] [place] Creatinine Clr Calc Pharmacy 80.25 Normal [facility] Comment on above: Performed By: #### T RIG, BMP, CBC #### [facility] [address] [place] [address] [place] GFR/1.73 sq M.predicted MDRD (S/P/Bld) [Vol rate/Area] mL/min/{1.73_m2} Normal [facility] Comment on above: Performed By: #### T RIG, BMP, CBC #### [facility] [address] [place] [address] [place] Glucose [Mass/Vol] 162 mg/dL High 70-100 [facility] Comment on above: Result Comment: [place] Glucose Reference Range is dependent on time and content of last meal. Glucose of more than 200 mg/dL in a nonstressed, ambulatory subject supports the diagnosis of Diabetes Mellitus. ADA recommended reference range Performed By: #### T RIG, BMP, CBC #### [facility] [address] [place] [address] [place] Potassium [Moles/Vol] 3.9 mmol/L Normal 3.5-5.1 [facility] Comment on above: Performed By: #### T RIG, BMP, CBC #### [address] Sodium [Moles/Vol] 138 mmol/L Normal 136-145 [facility] Comment on above: Performed By: #### T RIG BMP, CBC #### [address] Urea nitrogen [Mass/Vol] 17 mg/dL Normal 7-25 [facility] Comment on above: Performed By: #### T RIG BMP, CBC #### [address] Complete Blood Count Auto Di ffon 11-07-2024 Basophils (Bld) [#/Vol] 0.0 10*3/uL Normal 0.0-0.2 [facility] Comment on above: Result Comment: PERF ORMED BY: [place] [address] PATHOLOGIST FRENCH CORD BINDER ALANNA RUDOLPH M.D. Performed By: #### T RIG BMP, CBC #### [address] Basophils/100 WBC (Bld) 0.0 % Normal . [facility] Comment on above: Performed By: #### T RIG BMP, CBC #### [address] Eosinophils (Bld) [#/Vol] 0.0 10*3/uL Normal 0.0-0.45 [facility] Comment on above: Performed By: #### T RIG BMP, CBC #### [address] Eosinophils/100 WBC (Bld) 0.0 % Normal . [facility] Comment on above: Performed By: #### T RIG BMP, CBC #### [address] Erythrocyte distribution width (RBC) [Ratio] 16.5 % High 12.0-14.8 [facility] Comment on above: Performed By: #### T RIG BMP, CBC #### [address] Hematocrit (Bld) [Volume fraction] 33.1 % Low 38.8-50.0 [facility] Comment on above: Performed By: #### T RIG BMP, CBC #### [address] Hemoglobin (Bld) [Mass/Vol] 11.3 g/dL Low 13.0-17.0 [facility] Comment on above: Performed By: #### T RIG BMP, CBC #### [address] Lymphocytes (Bld) [#/Vol] 0.6 10*3/uL Low 1.00-4.8 [facility] Comment on above: Performed By: #### T LEXI BMP, CBC #### [address] Lymphocytes/100 WBC (Bld) 7.3 % Normal . [facility] Comment on above: Performed By: #### T LEXI BMP, CBC #### [address] MCH (RBC) [Entitic mass] 35.4 pg High 27.5-35.2 [facility] Comment on above: Performed By: #### T RIG BMP, CBC #### [address] MCV (RBC) [Entitic vol] 103.5 fL High 83.5-101 [facility] Comment on above: Performed By: #### T RIG BMP, CBC #### [address] Mean Corpuscular HGB Conc 34.2 g/dL Normal 32.5-35.6 [facility] Comment on above: Performed By: #### T RIG BMP, CBC #### [address] Monocytes (Bld) [#/Vol] 0.6 10*3/uL Normal 0.0-0.8 [facility] Comment on above: Performed By: #### T RIG, BMP, CBC #### [facility] [address] [place] [address] [place] Monocytes/100 WBC (Bld) 7.2 % Normal . [facility] Comment on above: Performed By: #### T RIG, BMP, CBC #### [facility] [address] [place] [address] [place] Neutrophils (Bld) [#/Vol] 7.4 10*3/uL Normal 1.8-7.7 [facility] Comment on above: Performed By: #### T RIG, BMP, CBC #### [facility] [address] [place] [address] [place] Neutrophils/100 WBC (Bld) 85.5 % Normal . [facility] Comment on above: Performed By: #### T RIG, BMP, CBC #### [facility] [address] [place] [address] [place] NRBC% 0.0 /100{WBC} Normal 0-0.5 [facility] Comment on above: Performed By: #### T RIG, BMP, CBC #### [facility] [address] [place] [address] [place] Platelet mean volume (Bld) [Entitic vol] 8.3 fL Normal 6.6-10.1 [facility] Comment on above: Performed By: #### T RIG, BMP, CBC #### [facility] [address] [place] [address] [place] Platelets (Bld) [#/Vol] 177 10*3/uL Normal 150-450 [facility] Comment on above: Performed By: #### T RIG, BMP, CBC #### [facility] [address] [place] [address] [place] RBC (Bld) [#/Vol] 3.20 10*6/uL Low 3.90-5.[address] [facility] Comment on above: Performed By: #### T RIG, BMP, CBC #### [facility] [address] [place] [address] [place] WBC (Bld) [#/Vol] 8.6 10*3/uL Normal 4.1-10.5 [facility] Comment on above: Performed By: #### T RIG, BMP, CBC #### [address] Creatine Kinaseon 11-07-2024 CK [Catalytic activity/Vol] 45 U/L Normal 30 [facility] Comment on above: Order Comment: Comme nt add on Result Comment: PERF ORMED BY: [place] [address] PATHOLOGIST FRENCH CORD BINDER ALANNA RUDOLPH M.D. Performed By: #### A BG #### Point of Care testing , Creatine kinase [Enzymatic a ctivity/volume] in Serum or PlasmaOrdered By: Brodie Nascimento on 11-07-2024 CK [Catalytic activity/Vol] Creatine kinase [Enzymatic activity/volume] in Serum or Plasma [facility] Glucose Poct Glucometerson 0 11-07-2024 Commemt1 Glu2: Cleaned Meter Normal [facility] Comment on above: Result Comment: PERF ORMED BY: [place] [address] PATHOLOGIST FRENCH CORD BINDER ALANNA RUDOLPH M.D. Performed By: #### G LULS #### Point of Care testing , Glucose [Mass/Vol] 167 mg/dL Normal [facility] Comment on above: Result Comment: [facility] Glucose Reference Range is dependent on time and content of last meal. Glucose of more than 200 mg/dL in a nonstressed, ambulatory subject supports the diagnosis of Diabetes Mellitus. Performed By: #### G LULS #### Point of Care testing , Commemt1 Glu2: Cleaned Meter Normal [facility] Comment on above: Result Comment: PERF ORMED BY: [place] [address] PATHOLOGIST FRENCH CORD BINDER ALANNA RUDOLPH M.D. Performed By: #### E RBMP #### [address] Point of Care testing , Glucose [Mass/Vol] 126 mg/dL Normal [facility] Comment on above: Result Comment: [facility] Glucose Reference Range is dependent on time and content of last meal. Glucose of more than 200 mg/dL in a nonstressed, ambulatory subject supports the diagnosis of Diabetes Mellitus. Performed By: #### E RBMP #### [address] Point of Care testing , Magnesiumon 11-07-2024 Magnesium [Mass/Vol] 2.3 mg/dL Normal 1.9-2.7 [facility] Comment on above: Order Comment: Comme nt add on Result Comment: PERF ORMED BY: [place] [address] PATHOLOGIST FRENCH CORD BINDER ALANNA RUDOLPH M.D. Performed By: #### E RBMP #### [address] Point of Care testing , Phosphoruson 11-07-2024 Phosphate [Mass/Vol] 3.1 mg/dL Normal 2.5-4.5 [facility] Comment on above: Order Comment: Comme nt add on Performed By: #### E RBMP #### [address] Point of Care testing , Triglycerideson 11-07-2024 Triglyceride [Mass/Vol] 34 mg/dL Low 35-149 [facility] Comment on above: Result Comment: TRIG ATP III CLASSIFICATION TRIG less than 150 mg/dL Normal TRIG 150-199 mg/dL Borderline high TRIG 200-500 mg/dL High TRIG greater than 500 mg/dL Very high Standard traceable to the Center for Disease Conrtrol and Prevention (CDC) test method. PERFORMED BY: [place] [address] PATHOLOGIST FRENCH CORD BINDER ALANNA RUDOLPH M.D. Performed By: #### T RIG, BMP, CBC #### [address] X-ray reportOrdered By: Alberto Stevenson on 11-07-2024 Study report [facility] Main [address] [address] XRay Report Signed Patient: Michael Vaughn MR#: [id number] : 1950 Acct:[id number] Age/Sex: 74 / M ADM Date: 5 Loc: 4C Room: [address] [place] [address] Type: ADM IN Attending Dr: Reyes Bridges DO Copies to: DO Brodie Arias MD~ Ordering Provider: Brodie Nascimento MD Date of Service: 11/07/24 XR/XR chest 1V portable: intubated SINGLE VIEW CHEST CLINICAL HISTORY: Ventilator care. COMPARISON: Chest 11/06/2024 FINDINGS: Tubes are in satisfactory positions. Heart and mediastinal structures appear unchanged. Chronic elevation right hemidiaphragm. Bibasilar airspace disease is unchanged. No pneumothorax or free air. XR/XR chest 1V portable IMPRESSION: NO SIGNIFICANT CHANGE IN CHEST FINDINGS. Impression dictated by: Sea Stevenson Jr., D.OTammie11/07/2024 8:12 AM Dictation Location: [facility] Transcribed By: [facility] 11/07/24811 Dictated By: Sea Stevenson Jr, DO 11/07/24 0810 Signed By: 11/07/24 0812 [facility] XR chest 1V portableon 11-07 XR chest 1V portable [facility] Main [address] [address] XRay Report Signed Patient: Michael Vaughn MR#: [id number] 94 : 1950 Acct:[id number] Age/Sex: 74 / M ADM Date: 11/04/24 Loc: 4C Room: [address] [place] [address] Type: ADM IN Attending Dr: Reyes Bridges DO Copies to: DO Brodie Arias MD Ordering Provider: Brodie Nascimento MD Date of Service: 11/07/24 XR/XR chest 1V portable: intubated SINGLE VIEW CHEST CLINICAL HISTORY: Ventilator care. COMPARISON: Chest 11/06/2024 FINDINGS: Tubes are in satisfactory positions. Heart and mediastinal structures appear unchanged. Chronic elevation right hemidiaphragm. Bibasilar airspace disease is unchanged. No pneumothorax or free air. XR/XR chest 1V portable IMPRESSION: NO SIGNIFICANT CHANGE IN CHEST FINDINGS. Impression dictated by: Sea Stevenson Jr., D.O.11/07/2024 8:12 AM Dictation Location: [facility]18 Transcribed By: [facility] 11/07/24811 Dictated By: Sea Stevenson Jr, DO 11/07/2410 Signed By: 11/07/[address] Normal [facility] Arterial Blood [place] 025 ABG Base Excess 0.5 mmol/L Normal -3.0-3.0 [facility] Comment on above: Performed By: #### A BG #### Point of Care testing , ABG Frac Inspired O2 70 % Normal [facility] Comment on above: Performed By: #### A BG #### Point of Care testing , ABG Oxygen Content 7.6 mmol/L Normal 6.6-9.7 [facility] Comment on above: Performed By: #### A BG #### Point of Care testing , ABG Oxygen Saturation 98.8 % Normal 95.0-100.0 [facility] Comment on above: Performed By: #### A BG #### Point of Care testing , ABG PCO2 32.1 mm[Hg] Low 35.0-45.0 [facility] Comment on above: Performed By: #### A BG #### Point of Care testing , ABG PEEP 10 cmH20 Normal [facility] Comment on above: Performed By: #### A BG #### Point of Care testing , ABG PH 7.48 High 7.35-7.45 [facility] Comment on above: Performed By: #### A BG #### Point of Care testing , ABG PO2 133.7 mm[Hg] Off scale high 80.0-100.0 [facility] Comment on above: Performed By: #### A BG #### Point of Care testing , ABG TV 500 mL Normal [facility] Comment on above: Performed By: #### A BG #### Point of Care testing , CO2 [Moles/Vol] 24.4 mmol/L Normal 23.0-27.0 [facility] Comment on above: Performed By: #### A BG #### Point of Care testing , HCO3 (Bld) [Moles/Vol] 23.4 mmol/L Normal 23.0-29.0 [facility] Comment on above: Performed By: #### A BG #### Point of Care testing , Respiratory Critical Normal [facility] Comment on above: Result Comment: Crit ical Value called on: 11/06/2024 at 05:48 PERFORMED BY: [place] [address] PATHOLOGIST FRENCH CORD BINDER ALANNA RUDOLPH M.D. Performed By: #### A BG #### Point of Care testing , Set Respiratory Rate 16 Normal [facility] Comment on above: Performed By: #### A BG #### Point of Care testing , VBG Draw Site Right Radial Normal [facility] Comment on above: Performed By: #### A BG #### Point of Care testing , Ventilator Mode AC Normal [facility] Comment on above: Performed By: #### A BG #### Point of Care testing , Basic Metabolic Panelon - Anion gap [Moles/Vol] 12.3 mmol/L Normal 6.0-15.0 [facility] Comment on above: Performed By: #### T RIG, BMP, CBC #### [place] [address] [place] Calcium [Mass/Vol] 8.4 mg/dL Low 8.6-10.3 [facility] Comment on above: Performed By: #### T RIG, BMP, CBC #### [facility] [address] [place] [address] [place] Chloride [Moles/Vol] 103 mmol/L Normal 98-107 [facility] Comment on above: Performed By: #### T RIG BMP, CBC #### [facility] [address] [place] [address] [place] CO2 [Moles/Vol] 26.6 mmol/L Normal 21.0-31.0 [facility] Comment on above: Performed By: #### T RIG BMP, CBC #### [facility] [address] [place] [address] [place] Creatinine [Mass/Vol] 0.73 mg/dL Normal 0.70-1.30 [facility] Comment on above: Performed By: #### T LEXI BMP, CBC #### [facility] [address] [place] [address] [place] Creatinine Clr Calc Pharmacy 84.03 Normal [facility] Comment on above: Performed By: #### T LEXI BMP, CBC #### [facility] [address] [place] [address] [place] GFR/1.73 sq M.predicted MDRD (S/P/Bld) [Vol rate/Area] mL/min/{1.73_m2} Normal [facility] Comment on above: Performed By: #### T RIG BMP, CBC #### [facility] [address] [place] [address] [place] Glucose [Mass/Vol] 162 mg/dL High 70-100 [facility] Comment on above: Result Comment: [facility] Glucose Reference Range is dependent on time and content of last meal. Glucose of more than 200 mg/dL in a nonstressed, ambulatory subject supports the diagnosis of Diabetes Mellitus. ADA recommended reference range Performed By: #### T RIG BMP, CBC #### [facility] [address] [place] [address] [place] Potassium [Moles/Vol] 3.9 mmol/L Normal 3.5-5.1 [facility] Comment on above: Performed By: #### T RIG BMP, CBC #### [facility] [address] [place] [address] [place] Sodium [Moles/Vol] 138 mmol/L Normal 136-145 [facility] Comment on above: Performed By: #### T RIG BMP, CBC #### [address] Urea nitrogen [Mass/Vol] 16 mg/dL Normal 7-25 [facility] Comment on above: Performed By: #### T JOSEFINA ELLIOTT, CBC #### [address] Complete Blood Count Auto Di ffon 11-06-2024 Basophils (Bld) [#/Vol] 0.0 10*3/uL Normal 0.0-0.2 [facility] Comment on above: Result Comment: PERF ORMED BY: [place] [address] PATHOLOGIST FRENCH CORD BINDER ALANNA RUDOLPH M.D. Performed By: #### T JOSEFINA ELLIOTT, CBC #### [address] Basophils/100 WBC (Bld) 0.2 % Normal . [facility] Comment on above: Performed By: #### T JOSEFINA ELLIOTT, CBC #### [address] Eosinophils (Bld) [#/Vol] 0.0 10*3/uL Normal 0.0-0.45 [facility] Comment on above: Performed By: #### T JOSEFINA ELLIOTT, CBC #### [address] Eosinophils/100 WBC (Bld) 0.0 % Normal . [facility] Comment on above: Performed By: #### T JOSEFINA ELLIOTT, CBC #### [address] Erythrocyte distribution width (RBC) [Ratio] 16.6 % High 12.0-14.8 [facility] Comment on above: Performed By: #### T RIGJOSEFINA, CBC #### [address] Hematocrit (Bld) [Volume fraction] 33.1 % Low 38.8-50.0 [facility] Comment on above: Performed By: #### T RIG BMP, CBC #### [address] Hemoglobin (Bld) [Mass/Vol] 11.2 g/dL Low 13.0-17.0 [facility] Comment on above: Performed By: #### T RIG, BMP, CBC #### [address] Lymphocytes (Bld) [#/Vol] 0.6 10*3/uL Low 1.00-4.8 [facility] Comment on above: Performed By: #### T RIG, BMP, CBC #### [address] Lymphocytes/100 WBC (Bld) 7.1 % Normal . [facility] Comment on above: Performed By: #### T RIG BMP, CBC #### [address] MCH (RBC) [Entitic mass] 35.5 pg High 27.5-35.2 [facility] Comment on above: Performed By: #### T RIG, BMP, CBC #### [address] MCV (RBC) [Entitic vol] 104.7 fL High 83.5-101 [facility] Comment on above: Performed By: #### T RIG, BMP, CBC #### [address] Mean Corpuscular HGB Conc 33.9 g/dL Normal 32.5-35.6 [facility] Comment on above: Performed By: #### T RIG, BMP, CBC #### [place] [address] [place] Monocytes (Bld) [#/Vol] 0.7 10*3/uL Normal 0.0-0.8 [facility] Comment on above: Performed By: #### T RIG, BMP, CBC #### [place] [address] [place] Monocytes/100 WBC (Bld) 7.5 % Normal . [facility] Comment on above: Performed By: #### T RIG, BMP, CBC #### [facility] [address] [place] [address] [place] Neutrophils (Bld) [#/Vol] 7.5 10*3/uL Normal 1.8-7.7 [facility] Comment on above: Performed By: #### T RIG, BMP, CBC #### [facility] [address] [place] [address] [place] Neutrophils/100 WBC (Bld) 85.2 % Normal . [facility] Comment on above: Performed By: #### T RIG, BMP, CBC #### [facility] [address] NRBC% 0.1 /100{WBC} Normal 0-0.5 [facility] Comment on above: Performed By: #### T RIG, BMP, CBC #### [facility] [address] Platelet mean volume (Bld) [Entitic vol] 8.0 fL Normal 6.6-10.1 [facility] Comment on above: Performed By: #### T RIG, BMP, CBC #### [facility] [address] [place] [address] [place] Platelets (Bld) [#/Vol] 184 10*3/uL Normal 150-450 [facility] Comment on above: Performed By: #### T RIG, BMP, CBC #### [facility] [address] [place] [address] [place] RBC (Bld) [#/Vol] 3.16 10*6/uL Low 3.90-5.[address] [facility] Comment on above: Performed By: #### T RIG, BMP, CBC #### [facility] [address] [place] [address] [place] WBC (Bld) [#/Vol] 8.8 10*3/uL Normal 4.1-10.[address] [facility] Comment on above: Performed By: #### T RIG, BMP, CBC #### [facility] [address] Glucose Poct Glucometerson 0 11-06-2024 Glucose [Mass/Vol] 154 mg/dL Normal [facility] Comment on above: Result Comment: [place] Glucose Reference Range is dependent on time and content of last meal. Glucose of more than 200 mg/dL in a nonstressed, ambulatory subject supports the diagnosis of Diabetes Mellitus. PERFORMED BY: [place] [address] PATHOLOGIST FRENCH CORD BINDER ALANNA RUDOLPH M.D. Performed By: #### A BG #### Point of Care testing , Commemt1 Glu2: Cleaned Meter Normal The [facility] Comment on above: Result Comment: PERF ORMED BY: [place] [address] PATHOLOGIST FRENCH CORD BINDER ALANNA RUDOLPH M.D. Performed By: #### T RIGJOSEFINA, CBC #### [address] Glucose [Mass/Vol] 175 mg/dL Normal [facility] Comment on above: Result Comment: [place] Glucose Reference Range is dependent on time and content of last meal. Glucose of more than 200 mg/dL in a nonstressed, ambulatory subject supports the diagnosis of Diabetes Mellitus. Performed By: #### T RIG BMP, CBC #### [address] Commemt1 Glu2: Cleaned Meter Normal The [facility] Comment on above: Result Comment: PERF ORMED BY: [place] [address] PATHOLOGIST FRENCH CORD BINDER ALANNA RUDOLPH M.D. Performed By: #### G LULS #### Point of Care testing , Glucose [Mass/Vol] 155 mg/dL Normal [facility] Comment on above: Result Comment: [place] Glucose Reference Range is dependent on time and content of last meal. Glucose of more than 200 mg/dL in a nonstressed, ambulatory subject supports the diagnosis of Diabetes Mellitus. Performed By: #### G LULS #### Point of Care testing , Glucose [Mass/Vol] 144 mg/dL Normal [facility] Comment on above: Result Comment: [place] Glucose Reference Range is dependent on time and content of last meal. Glucose of more than 200 mg/dL in a nonstressed, ambulatory subject supports the diagnosis of Diabetes Mellitus. PERFORMED BY: [place] [address] PATHOLOGIST FRENCH CORD BINDER ALANNA RUDOLPH M.D. Performed By: #### A BG #### Point of Care testing , Triglycerideson 11-06-2024 Triglyceride [Mass/Vol] 70 mg/dL Normal 35-149 [facility] Comment on above: Result Comment: TRIG ATP III CLASSIFICATION TRIG less than 150 mg/dL Normal TRIG 150-199 mg/dL Borderline high TRIG 200-500 mg/dL High TRIG greater than 500 mg/dL Very high Standard traceable to the Center for Disease Conrtrol and Prevention (CDC) test method. PERFORMED BY: [place] [address] PATHOLOGIST FRENCH CORD BINDER ALANNA RUDOLPH M.D. Performed By: #### T RIG, BMP, CBC #### [facility] [address] [place] [address] X-ray reportOrdered By: Alberto Stevenson on 11-06-2024 Study report [facility] [place] [address] [place] [address] XRay Report Signed Patient: Michael Vaughn MR#: [id number] : 1950 Acct:[id number] Age/Sex: 74 / M ADM Date: 5 Loc: Room: [address] [place] [address] Type: ADM IN Attending Dr: Reyes Bridges DO Copies to: DO Brodie Arias MD~ Ordering Provider: Brodie Nascimento MD Date of Service: 11/06/24 XR/XR chest 1V portable: intubated SINGLE VIEW CHEST CLINICAL HISTORY: Ventilator care. COMPARISON: Chest 11/05/2024 FINDINGS: Tubes in satisfactory positions. Heart and mediastinal structures appear unchanged. Elevation of the right hemidiaphragm. Bibasilar airspace disease isunchanged. No pneumothorax or free air. XR/XR chest 1V portable IMPRESSION: NO SIGNIFICANT CHANGE IN CHEST FINDINGS. Impression dictated by: Sea Stevenson Jr., D.O.11/06/2024 11:02 AM Dictation Location: RADIO-PC-18 Transcribed By: CATHERINE 11/06/24 110 Dictated By: Sea Stevenson Jr, DO 11/06/24 105 Signed By: 11/06/24 1102 [facility] XR chest 1V portableon 11-06 XR chest 1V portable [facility] [place] [address] [place] [address] XRay Report Signed Patient: Michael Vaughn MR#: [id number] 94 : 1950 Acct:[id number] Age/Sex: 74 / M ADM Date: 11/04/24 Loc: Room: [address] [place] [address] Type: ADM IN Attending Dr: Reyes Bridges DO Copies to: DO Brodie Arias MD Ordering Provider: Brodie Nascimento MD Date of Service: 11/06/24 XR/XR chest 1V portable: intubated SINGLE VIEW CHEST CLINICAL HISTORY: Ventilator care. COMPARISON: Chest 11/05/2024 FINDINGS: Tubes in satisfactory positions. Heart and mediastinal structures appear unchanged. Elevation of the right hemidiaphragm. Bibasilar airspace disease is unchanged. No pneumothorax or free air. XR/XR chest 1V portable IMPRESSION: NO SIGNIFICANT CHANGE IN CHEST FINDINGS. Impression dictated by: Sea Stevenson Jr., D.O.11/06/2024 11:02 AM Dictation Location: RADIO-PC-18 Transcribed By: CATHERINE 11/06/24 110 Dictated By: Sea Stevenson Jr, DO 11/06/24 105 Signed By: 11/06/24 1102 Normal [facility] Arterial Blood [place] 025 ABG Base Excess 2.8 mmol/L Normal -3.0-3.0 [facility] Comment on above: Performed By: #### G LULS #### Point of Care testing , ABG Frac Inspired O2 60 % Normal [facility] Comment on above: Performed By: #### G LULS #### Point of Care testing , ABG Oxygen Content 7.0 mmol/L Normal 6.6-9.7 [facility] Comment on above: Performed By: #### G LULS #### Point of Care testing , ABG Oxygen Saturation 91.4 % Low 95.0-100.0 [facility] Comment on above: Performed By: #### G LULS #### Point of Care testing , ABG PCO2 47.3 mm[Hg] High 35.0-45.0 [facility] Comment on above: Performed By: #### G LULS #### Point of Care testing , ABG PEEP 8 cmH20 Normal [facility] Comment on above: Performed By: #### G LULS #### Point of Care testing , ABG PH 7.40 Normal 7.35-7.45 [facility] Comment on above: Performed By: #### G LULS #### Point of Care testing , ABG PO2 64.0 mm[Hg] Low 80.0-100.0 [facility] Comment on above: Performed By: #### G LULS #### Point of Care testing , ABG TV 400 mL Normal [facility] Comment on above: Performed By: #### G LULS #### Point of Care testing , CO2 [Moles/Vol] 29.8 mmol/L High 23.0-27.0 [facility] Comment on above: Performed By: #### G LULS #### Point of Care testing , HCO3 (Bld) [Moles/Vol] 28.3 mmol/L Normal 23.0-29.0 [facility] Comment on above: Performed By: #### G LULS #### Point of Care testing , Respiratory Critical Normal [facility] Comment on above: Result Comment: Crit ical Value called on: 11/05/2024 at 04:52 PERFORMED BY: [facility] [address] [address] PATHOLOGIST FRENCH CORD BINDER ALANNA RUDOLPH M.D. Performed By: #### G LULS #### Point of Care testing , Set Respiratory Rate 16 Normal [facility] Comment on above: Performed By: #### G LULS #### Point of Care testing , VBG Draw Site Left Brachial Normal [facility] Comment on above: Performed By: #### G LULS #### Point of Care testing , Ventilator Mode AC Normal [facility] Comment on above: Performed By: #### G LULS #### Point of Care testing , Basic Metabolic Panelon 10-19 Anion gap [Moles/Vol] 9.8 mmol/L Normal 6.0-15.0 [facility] Comment on above: Performed By: #### A BG #### Point of Care testing , Calcium [Mass/Vol] 8.3 mg/dL Low 8.6-10.3 [facility] Comment on above: Performed By: #### A BG #### Point of Care testing , Chloride [Moles/Vol] 104 mmol/L Normal 98-107 [facility] Comment on above: Performed By: #### A BG #### Point of Care testing , CO2 [Moles/Vol] 28.3 mmol/L Normal 21.0-31.0 [facility] Comment on above: Performed By: #### A BG #### Point of Care testing , Creatinine [Mass/Vol] 0.79 mg/dL Normal 0.70-1.30 [facility] Comment on above: Performed By: #### A BG #### Point of Care testing , Creatinine Clr Calc Pharmacy 84.03 Normal [facility] Comment on above: Performed By: #### A BG #### Point of Care testing , GFR/1.73 sq M.predicted MDRD (S/P/Bld) [Vol rate/Area] mL/min/{1.73_m2} Normal [facility] Comment on above: Performed By: #### A BG #### Point of Care testing , Glucose [Mass/Vol] 138 mg/dL High 70-100 [facility] Comment on above: Result Comment: [facility] Glucose Reference Range is dependent on time and content of last meal. Glucose of more than 200 mg/dL in a nonstressed, ambulatory subject supports the diagnosis of Diabetes Mellitus. ADA recommended reference range Performed By: #### A BG #### Point of Care testing , Potassium [Moles/Vol] 4.1 mmol/L Normal 3.5-5.1 [facility] Comment on above: Performed By: #### A BG #### Point of Care testing , Sodium [Moles/Vol] 138 mmol/L Normal 136-145 [facility] Comment on above: Performed By: #### A BG #### Point of Care testing , Urea nitrogen [Mass/Vol] 19 mg/dL Normal 7-25 [facility] Comment on above: Performed By: #### A BG #### Point of Care testing , CT chest w [facility] 11-05-2024 CT chest w [facility] [place] [address] [place] [address] CT Scan Report Signed Patient: Michael Vaughn MR#: [id number] 94 : 1950 Acct:[id number] Age/Sex: 74 / M ADM Date: 11/04/24 Loc: Room: [address] [place] [address] Type: ADM IN Attending Dr: Reyes Bridges DO Copies to: DO Brodie Arias MD Ordering Provider: Brodie Nascimento MD Date of Service: 11/05/24 CT/CT chest w con: respiratory failure with hypoxia CT CHEST WITH INTRAVENOUS CONTRAST: CLINICAL HISTORY: Respiratory failure. COMPARISON: Chest 11/05/2024 TECHNIQUE: Spiral images were obtained through the chest following intravenous administration of IV contrast. This CT exam was performed using one or more following dose reduction techniques: Automated exposure control, adjustment of the mA and/or kV according to patient size, or use of iterative reconstruction technique. FINDINGS: Mediastinum:ET tube is in satisfactory position. Enteric tube is seen within the stomach. Thoracic aorta appears normal in caliber. Pulmonary trunk appears nondilated. No pericardial effusion. No lymphadenopathy. The esophagus is grossly unremarkable. Lungs:Consolidative changes involving the lower lobes. Mild scarring involving the upper lobes. No pneumothorax. No pleural effusion. Abd:No acute process. Soft tissues/Bones: No acute process. Osseous structures demonstrate degenerative change. CT/CT chest w con IMPRESSION: Tubes are in satisfactory positions. Consolidative changes involving the lower lobe suspicious for pneumonia. Impression dictated by: Sea Stevenson Jr., D.O.11/05/2024 2:58 PM Dictation Location: [place] [address] Transcribed By: [facility] 11/05/24 1458 Dictated By: Sea Stevenson Jr, DO 11/05/24 1453 Signed By: 11/05/24 1458 Normal [facility] CT soft tissue neck w conon 11-05-2024 CT soft tissue neck w con [facility] [place] [address] [place] [address] CT Scan Report Signed Patient: Michael Vaughn MR#: [id number] 94 : 1950 Acct:[id number] Age/Sex: 74 / M ADM Date: 11/04/24 Loc: Room: [address] [place] [address] Type: ADM IN Attending Dr: Reyes Bridges DO Copies to: DO Brodie Arias MD Ordering Provider: Brodie Nascimento MD Date of Service: 11/05/24 CT/CT soft tissue neck w con: subglottic stenosis CT Neck with contrast TECHNIQUE: Axial imaging with 2-D reconstruction. 90cc of Isovue-[address] exam was performed using one or more the following dose reduction techniques: Automated exposure control, adjustment of the MA and/or Kv according to patient size, or use of the iterative reconstruction technique. HISTORY: Concern for subglottic stenosis. Difficulty with intubation. History of respiratory failure. Ventilated patient. Postop fusion at the C3-C6 levels. COMPARISON:10/12/2024 CT of the cervical spine ORAL CAVITY: ANTERIOR TWO THIRDS OF THE TONGUE: Unremarkable ROOF OF THE MOUTH: Unremarkable BUCCAL CAVITY: Unremarkable FLOOR OF THE MOUTH: Unremarkable DENTITION: Unremarkable TONSILS: Unremarkable PHARYNX: NASOPHARYNX: Unremarkable OROPHARYNX: Unremarkable TONGUE BASE: Unremarkable HYPOPHARYNX: Unremarkable EPIGLOTTIS: The epiglottis is normal. LARYNX: Potential mild laryngeal edema and retained secretions. No laryngeal lesion or fluid collection. Thyroid cartilage unchanged. The cricoid cartilage unremarkable. Hyoid bone unremarkable. Mild subglottic edema. Patent endotracheal tube. NECK SPACES: VISCERAL SPACE: Unremarkable CAROTID SPACE: Unremarkable RETROPHARYNGEAL SPACE: Unremarkable POSTERIOR CERVICAL SPACE: Unremarkable PREVERTEBRAL SPACE: Unremarkable CAROTID CIRCULATION AND JUGULAR VEINS No vascular abnormality identified. ADENOPATHY: No significant adenopathy identified. The levels assessed include the submental and submandibular, upper jugular, mid jugular, lower jugular and medial supraclavicular, posterior triangle and supraclavicular, anterior cervical, retropharyngeal and retrostyloid, parotid, buccofacial, and retroauricular and occipital. SALIVARY GLANDS: PAROTID GLANDS: Unremarkable SUBMANDIBULAR GLANDS: Unremarkable SUBLINGUAL GLANDS: Unremarkable THYROID GLAND: No thyroid nodule identified. BONES:C3-C6 to postsurgical fusion changes with decompression. Multilevel cervical spondylosis and hyperostosis. NG tube in esophagus tip out of the field of view. The ET tube tip is in the trachea in adequate position. CT/CT soft tissue neck w con IMPRESSION: ET tube in adequate position. Findings suggesting mild laryngeal edema and retained secretions. No obvious subglottic stenosis. No distinct fluid collection or hematoma. Unremarkable postsurgical changes of posterior cervical spine fusion and decompression. Impression dictated by: Alhaji Stewart M.D.11/05/2024 4:35 PM Dictation Location: [place] [address] Transcribed By: [facility] 11/05/24 1635 Dictated By: Alhaji Stewart DO 11/05/24 1624 Signed By: 11/05/24 1635 Normal [facility] Complete Blood Count Auto Di ffon 11-05-2024 Basophils (Bld) [#/Vol] 0.0 10*3/uL Normal 0.0-0.2 [facility] Comment on above: Result Comment: PERF ORMED BY: [address] [place] [address] PATHOLOGIST FRENCH CORD BINDER ALANNA RUDOLPH M.D. Performed By: #### G LULS #### Point of Care testing , Basophils/100 WBC (Bld) 0.1 % Normal . [facility] Comment on above: Performed By: #### G LULS #### Point of Care testing , Eosinophils (Bld) [#/Vol] 0.0 10*3/uL Normal 0.0-0.45 [facility] Comment on above: Performed By: #### G LULS #### Point of Care testing , Eosinophils/100 WBC (Bld) 0.0 % Normal . [facility] Comment on above: Performed By: #### G LULS #### Point of Care testing , Erythrocyte distribution width (RBC) [Ratio] 16.6 % High 12.0-14.8 [facility] Comment on above: Performed By: #### G LULS #### Point of Care testing , Hematocrit (Bld) [Volume fraction] 33.8 % Low 38.8-50.0 [facility] Comment on above: Performed By: #### G LULS #### Point of Care testing , Hemoglobin (Bld) [Mass/Vol] 11.5 g/dL Low 13.0-17.0 [facility] Comment on above: Performed By: #### G LULS #### Point of Care testing , Lymphocytes (Bld) [#/Vol] 0.5 10*3/uL Low 1.00-4.8 [facility] Comment on above: Performed By: #### G LULS #### Point of Care testing , Lymphocytes/100 WBC (Bld) 8.4 % Normal . [facility] Comment on above: Performed By: #### G LULS #### Point of Care testing , MCH (RBC) [Entitic mass] 35.6 pg High 27.5-35.2 [facility] Comment on above: Performed By: #### G LULS #### Point of Care testing , MCV (RBC) [Entitic vol] 104.7 fL High 83.5-101 [facility] Comment on above: Performed By: #### G LULS #### Point of Care testing , Mean Corpuscular HGB Conc 34.0 g/dL Normal 32.5-35.6 [facility] Comment on above: Performed By: #### G LULS #### Point of Care testing , Monocytes (Bld) [#/Vol] 0.7 10*3/uL Normal 0.0-0.8 [facility] Comment on above: Performed By: #### G LULS #### Point of Care testing , Monocytes/100 WBC (Bld) 11.3 % Normal . [facility] Comment on above: Performed By: #### G LULS #### Point of Care testing , Neutrophils (Bld) [#/Vol] 5.0 10*3/uL Normal 1.8-7.7 [facility] Comment on above: Performed By: #### G LULS #### Point of Care testing , Neutrophils/100 WBC (Bld) 80.2 % Normal . [facility] Comment on above: Performed By: #### G LULS #### Point of Care testing , NRBC% 0.2 /100{WBC} Normal 0-0.5 [facility] Comment on above: Performed By: #### G LULS #### Point of Care testing , Platelet mean volume (Bld) [Entitic vol] 8.0 fL Normal 6.6-10.1 [facility] Comment on above: Performed By: #### G LULS #### Point of Care testing , Platelets (Bld) [#/Vol] 212 10*3/uL Normal 150-450 [facility] Comment on above: Performed By: #### G LULS #### Point of Care testing , RBC (Bld) [#/Vol] 3.23 10*6/uL Low 3.90-5.[address] [facility] Comment on above: Performed By: #### G LULS #### Point of Care testing , WBC (Bld) [#/Vol] 6.2 10*3/uL Normal 4.1-10.[address] [facility] Comment on above: Performed By: #### G LULS #### Point of Care testing , Glucose Poct Glucometerson 0 11-05-2024 Glucose [Mass/Vol] 124 mg/dL Normal [facility] Comment on above: Result Comment: [facility] Glucose Reference Range is dependent on time and content of last meal. Glucose of more than 200 mg/dL in a nonstressed, ambulatory subject supports the diagnosis of Diabetes Mellitus. PERFORMED BY: [place] [id number] PATHOLOGIST FRENCH CORD BINDER ALANNA RUDOLPH M.D. Performed By: #### A BG #### Point of Care testing , Glucose [Mass/Vol] 151 mg/dL Normal [facility] Comment on above: Result Comment: [facility] Glucose Reference Range is dependent on time and content of last meal. Glucose of more than 200 mg/dL in a nonstressed, ambulatory subject supports the diagnosis of Diabetes Mellitus. PERFORMED BY: [place] [address] PATHOLOGIST FRENCH CORD BINDER ALANNA RUDOLPH M.D. Performed By: #### A BG #### Point of Care testing , Commemt1 Glu2: Cleaned Meter Normal The [facility] Comment on above: Result Comment: PERF ORMED BY: [place] [id number] PATHOLOGIST FRENCH CORD BINDER ALANNA RUDOLPH M.D. Performed By: #### T JOSEFINA ELLIOTT, CBC #### [place] [id number] [facility] Glucose [Mass/Vol] 163 mg/dL Normal [facility] Comment on above: Result Comment: [facility] Glucose Reference Range is dependent on time and content of last meal. Glucose of more than 200 mg/dL in a nonstressed, ambulatory subject supports the diagnosis of Diabetes Mellitus. Performed By: #### T LEXI BMP, CBC #### [place] [id number] [facility] Magnesiumon 11-05-2024 Magnesium [Mass/Vol] 1.9 mg/dL Normal 1.9-2.7 [facility] Comment on above: Result Comment: PERF ORMED BY: [place] [address] PATHOLOGIST FRENCH CORD BINDER ALANNA RUDOLPH M.D. Performed By: #### A BG #### Point of Care testing , Triglycerideson 11-05-2024 Triglyceride [Mass/Vol] 54 mg/dL Normal 35-149 [facility] Comment on above: Result Comment: TRIG ATP III CLASSIFICATION TRIG less than 150 mg/dL Normal TRIG 150-199 mg/dL Borderline high TRIG 200-500 mg/dL High TRIG greater than 500 mg/dL Very high Standard traceable to the Center for Disease Conrtrol and Prevention (CDC) test method. PERFORMED BY: [place] [address] PATHOLOGIST FRENCH CORD BINDER ALANNA RUDOLPH M.D. Performed By: #### A BG #### Point of Care testing , X-ray reportOrdered By: Jorge Stewart on 11-05-2024 Study report [facility] [place] [address] [place] [address] XRay Report Signed Patient: Michael Vaughn MR#: [id number] : 1950 Acct:[id number] Age/Sex: 74 / M ADM Date: 5 Loc: Room: [address] [place] [address] Type: ADM IN Attending Dr: Reyes Bridges DO Copies to: Reyes Bridges DO~ Ordering Provider: Reyes Bridges DO Date of Service: 11/05/24 XR/XR cervical spine 2V: PCF C3-6 2 viewcervical spine HISTORY: C3-C6 effusion COMPARISON: 10/12/2024 POSTOPERATIVE CHANGES: Adequate hardware. No complication. BONY ALIGNMENT: Straightening HYPERMOBILITY::No bending imaging. LISTHESIS:None FRACTURE: None DISC DEGENERATION: Similar cervical spondylosis FACETS: Degenerative change FORAMEN: Not assessed DENS: Intact CRANIOCERVICAL JUNCTION: Unremarkable SOFT TISSUES: Unremarkable XR/XR cervical spine 2V IMPRESSION: No hardware complication. Impression dictated by: Alhaji Stewart M.D.11/05/2024 8:12 AM Dictation Location: [facility]-16 Transcribed By: CATHERINE 11/05/24 0812 Dictated By: Alhaji Stewart DO 11/05/24 0811 Signed By: 11/05/24 0812 [facility] Study report [place] [address] XRay Report Signed Patient: Michael Vaughn MR#: [id number] : 1950 Acct:[id number] Age/Sex: 74 / M ADM Date: 5 Loc: 4C Room: [address] [place] [address] Type: ADM IN Attending Dr: Reyes Bridges DO Copies to: DO Brodie Arias MD~ Ordering Provider: Brodie Nascimento MD Date of Service: 11/05/24 XR/XR chest 1V portable: intubated Plain film chest Single view HISTORY: Daily assessment of ventilated patient COMPARISON: 11/04/2024 FINDINGS: SUPPORT DEVICES: Stable POSTSURGICAL CHANGES: Cervical spine fixation HEART: Within normal limits PULMONARY RYAN: Within normal limits MEDIASTINUM: Unremarkable LUNGS AND PLEURA: No acute lung process, pleural effusion or pneumothorax identified. Continued low lung volumes BONY STRUCTURES: Intact ADDITIONAL FINDINGS None XR/XR chest 1V portable IMPRESSION: Stable chest Impression dictated by: Alhaji Stewart M.D.11/05/2024 8:08 AM Dictation Location: [facility]-16 Transcribed By: CATHERINE 11/05/24 0808 Dictated By: Alhaji Stewart DO 11/05/24 0806 Signed By: 11/05/24 0808 [facility] XR cervical spine 2Von 11-05 XR cervical spine 2V [place] [address] XRay Report Signed Patient: Michael Vaughn MR#: [id number] 94 : 1950 Acct:[id number] Age/Sex: 74 / M ADM Date: 11/04/24 Loc: 4C Room: [address] [place] [address] Type: ADM IN Attending Dr: Reyes Bridges DO Copies to: Reyes Bridges DO Ordering Provider: Reyes Bridges DO Date of Service: 11/05/24 XR/XR cervical spine 2V: PCF C3-6 2 viewcervical spine HISTORY: C3-C6 effusion COMPARISON: 10/12/2024 POSTOPERATIVE CHANGES: Adequate hardware. No complication. BONY ALIGNMENT: Straightening HYPERMOBILITY::No bending imaging. LISTHESIS:None FRACTURE: None DISC DEGENERATION: Similar cervical spondylosis FACETS: Degenerative change FORAMEN: Not assessed DENS: Intact CRANIOCERVICAL JUNCTION: Unremarkable SOFT TISSUES: Unremarkable XR/XR cervical spine 2V IMPRESSION: No hardware complication. Impression dictated by: Alhaji Stewart M.D.11/05/2024 8:12 AM Dictation Location: [place] [address] Transcribed By: [facility] 11/05/24 0812 Dictated By: Alhaji Stewart DO 11/05/24 0811 Signed By: 11/05/24 0812 Normal [facility] XR chest 1V portableon 11-05 XR chest 1V portable [facility] [place] [address] [place] [address] XRay Report Signed Patient: Michael Vaughn MR#: [id number] 94 : 1950 Acct:[id number] Age/Sex: 74 / M ADM Date: 11/04/24 Loc: Room: [address] [place] [address] Type: ADM IN Attending Dr: Reyes Bridges DO Copies to: DO Brodie Arias MD Ordering Provider: Brodie Nascimento MD Date of Service: 11/05/24 XR/XR chest 1V portable: intubated Plain film chest Single view HISTORY: Daily assessment of ventilated patient COMPARISON: 11/04/2024 FINDINGS: SUPPORT DEVICES: Stable POSTSURGICAL CHANGES: Cervical spine fixation HEART: Within normal limits PULMONARY RYAN: Within normal limits MEDIASTINUM: Unremarkable LUNGS AND PLEURA: No acute lung process, pleural effusion or pneumothorax identified. Continued low lung volumes BONY STRUCTURES: Intact ADDITIONAL FINDINGS None XR/XR chest 1V portable IMPRESSION: Stable chest Impression dictated by: Alhaji Stewart M.D.11/05/2024 8:08 AM Dictation Location: [facility]--16 Transcribed By: [facility] 11/05/24807 Dictated By: Alhaji Stewart DO 11/05/24805 Signed By: 11/05/24807 Normal [facility] Arterial Blood [place] 025 ABG Base Excess -2.8 mmol/L Normal -3.0-3.0 [facility] Comment on above: Performed By: #### T RIG BMP, CBC #### [address] ABG Frac Inspired O2 50 % Normal [facility] Comment on above: Performed By: #### T RIG BMP, CBC #### [address] ABG Oxygen Content 8.6 mmol/L Normal 6.6-9.7 [facility] Comment on above: Performed By: #### T RIG BMP, CBC #### [address] ABG Oxygen Saturation 98.2 % Normal 95.0-100.0 [facility] Comment on above: Performed By: #### T RIG BMP, CBC #### [address] ABG PCO2 86.8 mm[Hg] Off scale high 35.0-45.0 The [facility] Comment on above: Performed By: #### T RIG BMP, CBC #### [address] ABG PEEP 11 cmH20 Normal [facility] Comment on above: Performed By: #### T RIG BMP, CBC #### [place] [id number] [facility] ABG PH 7.14 Off scale low 7.35-7.45 [facility] Comment on above: Performed By: #### T RIG BMP, CBC #### [address] ABG PO2 147.2 mm[Hg] Off scale high 80.0-100.0 [facility] Comment on above: Performed By: #### T RIG BMP, CBC #### [address] CO2 [Moles/Vol] 31.3 mmol/L High 23.0-27.0 [facility] Comment on above: Performed By: #### T RIG BMP, CBC #### [address] HCO3 (Bld) [Moles/Vol] 28.6 mmol/L Normal 23.0-29.0 [facility] Comment on above: Performed By: #### T RIG BMP, CBC #### [address] Oxygen Device BiPAP Normal [facility] Comment on above: Performed By: #### T RIG BMP, CBC #### [address] Respiratory Critical Normal [facility] Comment on above: Result Comment: Crit ical Value called on: 11/04/2024 at 17:32 PERFORMED BY: [place] [address] PATHOLOGIST FRENCH CORD BINDER ALANNA RUDOLPH M.D. Performed By: #### T RIG BMP, CBC #### [address] VBG Draw Site Left Radial Normal [facility] Comment on above: Performed By: #### T RIG BMP, CBC #### [address] ABG Base Excess -1.0 mmol/L Normal -3.0-3.0 [facility] Comment on above: Performed By: #### T RIG BMP, CBC #### [address] ABG Frac Inspired O2 50 % Normal [facility] Comment on above: Performed By: #### T RIG, BMP, CBC #### [address] ABG Oxygen Content 8.5 mmol/L Normal 6.6-9.7 [facility] Comment on above: Performed By: #### T RIG BMP, CBC #### [address] ABG Oxygen Saturation 97.8 % Normal 95.0-100.0 [facility] Comment on above: Performed By: #### T RIG BMP, CBC #### [address] ABG PCO2 81.5 mm[Hg] Off scale high 35.0-45.0 [facility] Comment on above: Performed By: #### T LEXI BMP, CBC #### [address] ABG PEEP 6 cmH20 Normal [facility] Comment on above: Performed By: #### T RIG BMP, CBC #### [address] ABG PH 7.18 Off scale low 7.35-7.45 [facility] Comment on above: Performed By: #### T LEXI BMP, CBC #### [address] ABG PO2 129.7 mm[Hg] Off scale high 80.0-100.0 [facility] Comment on above: Performed By: #### T RIG BMP, CBC #### [place] [address] [place] CO2 [Moles/Vol] 32.1 mmol/L High 23.0-27.0 [facility] Comment on above: Performed By: #### T RIG BMP, CBC #### [place] [address] [place] HCO3 (Bld) [Moles/Vol] 29.6 mmol/L High 23.0-29.0 [facility] Comment on above: Performed By: #### T RIG BMP, CBC #### [place] [address] Oxygen Device BiPAP Normal [facility] Comment on above: Performed By: #### T RIG BMP, CBC #### [address] Respiratory Critical Normal [facility] Comment on above: Result Comment: Crit ical Value called on: 11/04/2024 at 16:28 PERFORMED BY: [place] [address] PATHOLOGIST FRENCH CORD BINDER ALANNA RUDOLPH M.D. Performed By: #### T RIG BMP, CBC #### [address] VBG Draw Site Left Radial Normal [facility] Comment on above: Performed By: #### T RIG BMP, CBC #### [address] ABG Base Excess -3.5 mmol/L Low -3.0-3.0 [facility] Comment on above: Performed By: #### G LULS #### Point of Care testing , ABG Frac Inspired O2 42 % Normal [facility] Comment on above: Performed By: #### G LULS #### Point of Care testing , ABG Liter Flow 5 Normal [facility] Comment on above: Performed By: #### G LULS #### Point of Care testing , ABG Oxygen Content 8.5 mmol/L Normal 6.6-9.7 [facility] Comment on above: Performed By: #### G LULS #### Point of Care testing , ABG Oxygen Saturation 97.1 % Normal 95.0-100.0 [facility] Comment on above: Performed By: #### G LULS #### Point of Care testing , ABG PCO2 61.1 mm[Hg] Off scale high 35.0-45.0 The [facility] Comment on above: Performed By: #### G LULS #### Point of Care testing , ABG PH 7.23 Low 7.35-7.45 [facility] Comment on above: Performed By: #### G LULS #### Point of Care testing , ABG PO2 110.0 mm[Hg] High 80.0-100.0 The [facility] Comment on above: Performed By: #### G LULS #### Point of Care testing , CO2 [Moles/Vol] 27.0 mmol/L Normal 23.0-27.0 [facility] Comment on above: Performed By: #### G LULS #### Point of Care testing , HCO3 (Bld) [Moles/Vol] 25.1 mmol/L Normal 23.0-29.0 [facility] Comment on above: Performed By: #### G LULS #### Point of Care testing , Oxygen Device Nasal Cannula Normal [facility] Comment on above: Performed By: #### G LULS #### Point of Care testing , Respiratory Critical Normal [facility] Comment on above: Result Comment: Crit ical Value called on: 11/04/2024 at 14:41 PERFORMED BY: [address] [place] [address] PATHOLOGIST FRENCH CORD BINDER ALANNA RUDOLPH M.D. Performed By: #### G LULS #### Point of Care testing , VBG Draw Site Left Radial Normal [facility] Comment on above: Performed By: #### G LULS #### Point of Care testing , Glucose Poct Glucometerson 0 11-04-2024 Commemt1 Glu2: Cleaned Meter Normal [facility] Comment on above: Result Comment: PERF ORMED BY: [facility] [address] [place] [address] PATHOLOGIST FRENCH CORD BINDER ALANNA RUDOLPH M.D. Performed By: #### A BG #### Point of Care testing , Glucose [Mass/Vol] 197 mg/dL Normal [facility] Comment on above: Result Comment: [place] Glucose Reference Range is dependent on time and content of last meal. Glucose of more than 200 mg/dL in a nonstressed, ambulatory subject supports the diagnosis of Diabetes Mellitus. Performed By: #### A BG #### Point of Care testing , No Panel InformationOrdered By: Reyes Bridges on 11-04-2024 Oxygen Delivery Device Bipap [facility] Blood Gas Liter Flow 5 L/min [facility] X-ray reportOrdered By: Gus Kirk on 11-04-2024 Study report [place] [address] XRay Report Signed Patient: Michael Vaughn MR#: [id number] : 1950 Acct:[id number] Age/Sex: 74 / M ADM Date: 5 Loc: Room: [address] [place] [address] Type: ADM IN Attending Dr: Reyes Bridges DO Copies to: DO Brodie Arias MD~ Ordering Provider: Brodie Nascimento MD Date of Service: 11/04/24 XR/XR chest 1V portable: intubation ([id number]) XR/XR abdomen 1V: OG TUBE PLACEMENT SINGLE VIEW CHEST /SINGLE VIEW OF THE UPPER ABDOMEN CLINICAL HISTORY: Endotracheal and enteric tube placement COMPARISON: Chest x-ray 09/30/2024 FINDINGS: Low lung volumes. Mild crowding of the perihilar markings likely due to the lowlung volumes. Endotracheal tube tip terminates at level of the mid clavicles insatisfactory position 5.7 cm above the carson. Enteric tube tip and side-port left upper quadrant in satisfactory position. Postsurgical changes of the cervical spine incidentally noted. XR/XR chest 1V portable IMPRESSION: LOW LUNG VOLUMES. SATISFACTORY POSITION ENTERIC TUBE AND ENDOTRACHEAL TUBE. Impression dictated by: Luis F iKrk M.D.11/04/2024 7:12 PM Dictation Location: [facility]--29 Transcribed By: CATHERINE 11/04/241911 Dictated By: Luis F Kirk MD 11/04/241907 Signed By: 11/04/241911 [facility] Work Phone: X-ray reportOrdered By: Jorge Stewart on 11-04-2024 Study report [facility] Main [address] [address] XRay Report Signed Patient: Michael Vaughn MR#: [id number] : 1950 Acct:[id number] Age/Sex: 74 / M ADM Date: 5 Loc: 4N Room: [address] [place] [address] Type: ADM IN Attending Dr: Reyes Bridges DO Copies to: Reyes Bridges DO~ Ordering Provider: Reyes Bridges DO Date of Service: 11/04/24 XR/XR cervical spine 2V: . Intraoperative fluoroscopic assessment for C3-C6 fusion HISTORY: Cervical spine fusion 194 image was obtained. Cumulative Air Kerma in mGy: 3.24 mGy Cervical spine localization XR/XR cervical spine 2V IMPRESSION: Cervical spine localization Impression dictated by: Alhaji Stewart M.D.11/04/2024 12:18 PM Dictation Location: [place] [address] Transcribed By: [facility] 11/04/24 1218 Dictated By: Alhaji Stewart DO 11/04/24 1216 Signed By: 11/04/24 1218 [facility] XR abdomen 1Von 11-04-2024 XR abdomen 1V [facility] Main [place] [id number] XRay Report Signed Patient: Michael Vaughn MR#: [id number] 94 : 1950 Acct:[id number] Age/Sex: 74 / M ADM Date: 11/04/24 Loc: Room: [address] [place] [address] Type: ADM IN Attending Dr: Reyes Bridges DO Copies to: DO Brodie Arias MD Ordering Provider: Brodie Nascimento MD Date of Service: 11/04/24 XR/XR chest 1V portable: intubation ([id number]) XR/XR abdomen 1V: OG TUBE PLACEMENT SINGLE VIEW CHEST /SINGLE VIEW OF THE UPPER ABDOMEN CLINICAL HISTORY: Endotracheal and enteric tube placement COMPARISON: Chest x-ray 09/30/2024 FINDINGS: Low lung volumes. Mild crowding of the perihilar markings likely due to the low lung volumes. Endotracheal tube tip terminates at level of the mid clavicles in satisfactory position 5.7 cm above the carson. Enteric tube tip and side-port left upper quadrant in satisfactory position. Postsurgical changes of the cervical spine incidentally noted. XR/XR chest 1V portable IMPRESSION: LOW LUNG VOLUMES. SATISFACTORY POSITION ENTERIC TUBE AND ENDOTRACHEAL TUBE. Impression dictated by: Luis F Kirk M.D.11/04/2024 7:12 PM Dictation Location: [facility]-29 Transcribed By: CATHERINE 11/04/241911 Dictated By: Luis F Kirk MD 11/04/241907 Signed By: 11/04/241911 Normal [facility] XR cervical spine 2Von 11-04 XR cervical spine 2V [place] [address] XRay Report Signed Patient: Michael Vaughn MR#: [id number] 94 : 1950 Acct:[id number] Age/Sex: 74 / M ADM Date: 11/04/24 Loc: Room: [address] [place] [address] Type: ADM IN Attending Dr: Reyes Bridges DO Copies to: Reyes Bridges DO Ordering Provider: Reyes Bridges DO Date of Service: 11/04/24 XR/XR cervical spine 2V: . Intraoperative fluoroscopic assessment for C3-C6 fusion HISTORY: Cervical spine fusion 194 image was obtained. Cumulative Air Kerma in mGy: 3.24 mGy Cervical spine localization XR/XR cervical spine 2V IMPRESSION: Cervical spine localization Impression dictated by: Alhaji Stewart M.D.11/04/2024 12:18 PM Dictation Location: [facility]-23 Transcribed By: CATHERINE 11/04/241217 Dictated By: Alhaji Stewart DO 11/04/241215 Signed By: 11/04/241217 Normal [facility] CBC (H/H, RBC, INDICES, WBC, PLT)on 10-29-2024 Erythrocyte distribution width (RBC) [Ratio] 13.6 % Normal 11.0-15.0 [facility] Comment on above: Performed By: #### 1 230, 1759 #### [facility] [place] [address] Wool Scourer: Deejay Van MD Hematocrit (Bld) [Volume fraction] 40.3 % Normal 38.5-50.0 [facility] Comment on above: Performed By: #### 1 230, 1759 #### [facility] [address], [address] [place] [address] Wool Scourer: Deejay Van MD Hemoglobin (Bld) [Mass/Vol] 14.0 g/dL Normal 13.2-17.1 [facility] Comment on above: Performed By: #### 1 230, 175 #### [facility] [place] [address] Wool Scourer: Deejay Van MD MCH (RBC) [Entitic mass] 34.6 pg High 27.0-33.0 [facility] Comment on above: Performed By: #### 1 230, 175 #### [facility] [place] [address] Wool Scourer: Deejay Van MD MCHC (RBC) [Mass/Vol] 34.7 g/dL Normal 32.0-36.0 [facility] Comment on above: Result Comment: For adults, a slight decrease in the calculated MCHC value (in the range of 30 to 32 g/dL) is most likely not clinically significant; however, it should be interpreted with caution in correlation with other red cell parameters and the patient's clinical condition. Performed By: #### 1 230, 1759 #### [facility] [place] [address] Wool Scourer: Deejay Van MD MCV (RBC) [Entitic vol] 99.5 fL Normal 80.0-100.0 [facility] Comment on above: Performed By: #### 1 230, 1759 #### [facility] [address] [place] [address] Wool Scourer: Deejay Van MD Platelet mean volume (Bld) [Entitic vol] 10.2 fL Normal 7.5-12.5 [facility] Comment on above: Performed By: #### 1 0231, 1759 #### [facility] of [address], [address] [place], [place] [address] Wool Scourer: Deejay Van MD Platelets (Bld) [#/Vol] 253 10*3/uL Normal 140-400 [facility] Comment on above: Performed By: #### 1 0231, 1759 #### [facility] of [address], [address] [place] [address] Wool Scourer: Deejay Van MD RBC (Bld) [#/Vol] 4.05 10*6/uL Low 4.20-5.80 [facility] Comment on above: Performed By: #### 1 023, 1759 #### [facility] of [address], [address] [place] [address] Wool Scourer: Deejay Van MD WBC (Bld) [#/Vol] 6.2 10*3/uL Normal 3.8-10.8 [facility] Comment on above: Performed By: #### 1 0231, 1759 #### [facility] of [address], [address] [place] [address] Wool Scourer: Deejay Van MD [facility] 10-29-2024 Albumin [Mass/Vol] 4.2 g/dL Normal 3.6-5.1 [facility] Comment on above: Performed By: #### 1 0231, 1759 #### [facility] of [address], [address] [place] [address] Wool Scourer: Deejay Van MD Albumin/Globulin [Mass ratio] 1.6 {ratio} Normal 1.0-2.5 [facility] Comment on above: Performed By: #### 1 0231, 1759 #### [facility] of [address], [address] [place] [address] Wool Scourer: Deejay Van MD ALP [Catalytic activity/Vol] 63 U/L Normal 35-144 [facility] Comment on above: Performed By: #### 1 230, 1759 #### [facility] [place] [address] Wool Scourer: Deejay Van MD ALT [Catalytic activity/Vol] 41 U/L Normal 9-46 [facility] Comment on above: Performed By: #### 1 230, 175 #### [facility] of [place] [address] Wool Scourer: Deejay Van MD AST [Catalytic activity/Vol] 71 U/L High 10-35 [facility] Comment on above: Performed By: #### 1 230, 175 #### [facility] of [place] [address] Wool Scourer: Deejay Van MD Bilirubin [Mass/Vol] 0.5 mg/dL Normal 0.2-1.2 [facility] Comment on above: Performed By: #### 1 230, 175 #### [facility] [place] [address] Wool Scourer: Deejay Van MD BUN/CREATININE RATIO SEE NOTE: Normal 6-22 [facility] Comment on above: Result Comment: Not Reported: BUN and Creatinine are within reference range. Performed By: #### 1 230, 175 #### [facility] of [place] [address] Wool Scourer: Deejay Van MD Calcium [Mass/Vol] 9.0 mg/dL Normal 8.6-10.3 [facility] Comment on above: Performed By: #### 1 230, 175 #### [facility] of [place] [address] Wool Scourer: Deejay Van MD Chloride [Moles/Vol] 100 mmol/L Normal 98-110 [facility] Comment on above: Performed By: #### 1 023, 175 #### [facility] of [address], [address] [place] [address] Wool Scourer: Deejay Van MD CO2 [Moles/Vol] 31 mmol/L Normal 20-32 [facility] Comment on above: Performed By: #### 1 023, 175 #### [facility] of [address], [address] [place] [address] Wool Scourer: eDejay Vna MD Creatinine [Mass/Vol] 0.76 mg/dL Normal 0.70-1.[address] [facility] Comment on above: Performed By: #### 1 023, 175 #### [facility] of [address], [address] [place] [address] Wool Scourer: Deejay Van MD GFR/1.73 sq M.predicted among non-blacks MDRD (S/P/Bld) [Vol rate/Area] 95 mL/min/{1.73_m2} Normal > OR = 60 [facility] Comment on above: Performed By: #### 1 230, 175 #### [facility] [address], [address] [place] [address] Wool Scourer: Deejay Van MD Globulin (S) [Mass/Vol] 2.6 g/dL Normal 1.9-3.7 [facility] Comment on above: Performed By: #### 1 230, 175 #### [facility] [place] [address] Wool Scourer: Deejay Van MD Glucose [Mass/Vol] 75 mg/dL Normal 65-99 [facility] Comment on above: Result Comment: Fasting reference interval Performed By: #### 1 0231, 175 #### [facility] [place] [address] Wool Scourer: Deejay Van MD Potassium [Moles/Vol] 4.9 mmol/L Normal 3.5-5.[address] [facility] Comment on above: Performed By: #### 1 023, 175 #### [facility] of [address], [address] [place] [address] Wool Scourer: Deejay Van MD Protein [Mass/Vol] 6.8 g/dL Normal 6.1-8.1 [facility] Comment on above: Performed By: #### 1 0231, 1759 #### [facility] of [address], [address] [place] [address] Wool Scourer: Deejay Van MD Sodium [Moles/Vol] 138 mmol/L Normal 135-146 [facility] Comment on above: Performed By: #### 1 0231, 1759 #### [facility] of [address], [address] [place] [address] Wool Scourer: Deejay Van MD Urea nitrogen [Mass/Vol] 16 mg/dL Normal 7-25 [facility] Comment on above: Performed By: #### 1 0231, 1759 #### [facility] of [address], [address] [place] [address] Wool Scourer: Deejay Van MD Basic Metabolic Panelon 04-0 Anion gap [Moles/Vol] 10.0 mmol/L Normal 6.0-15.0 [facility] Comment on above: Performed By: #### T JOSEFINA ELLIOTT, CBC #### [address] Calcium [Mass/Vol] 8.6 mg/dL Normal 8.6-10.3 [facility] Comment on above: Result Comment: PERF ORMED BY: [place] [address] PATHOLOGIST FRENCH CORD BINDER ALANNA RUDOLPH M.D. Performed By: #### T RIG BMP, CBC #### [facility] [address] [place] [address] [place] Chloride [Moles/Vol] 102 mmol/L Normal 98-107 [facility] Comment on above: Performed By: #### T RIG BMP, CBC #### [facility] [address] [place] [id number] [place] CO2 [Moles/Vol] 31.2 mmol/L High 21.0-31.0 [facility] Comment on above: Performed By: #### T JOSEFINA ELLIOTT, CBC #### [address] Creatinine [Mass/Vol] 0.71 mg/dL Normal 0.70-1.30 [facility] Comment on above: Performed By: #### T JOSEFINA ELLIOTT, CBC #### [place] [address] [place] GFR/1.73 sq M.predicted MDRD (S/P/Bld) [Vol rate/Area] mL/min/{1.73_m2} Normal [facility] Comment on above: Performed By: #### T JOSEFINA ELLIOTT, CBC #### [address] Glucose [Mass/Vol] 98 mg/dL Normal 70-100 [facility] Comment on above: Result Comment: [facility] Glucose Reference Range is dependent on time and content of last meal. Glucose of more than 200 mg/dL in a nonstressed, ambulatory subject supports the diagnosis of Diabetes Mellitus. ADA recommended reference range Performed By: #### T JOSEFINA ELLIOTT, CBC #### [address] Potassium [Moles/Vol] 4.2 mmol/L Normal 3.5-5.1 [facility] Comment on above: Performed By: #### T JOSEFINA ELLIOTT, CBC #### [address] Sodium [Moles/Vol] 139 mmol/L Normal 136-145 [facility] Comment on above: Performed By: #### T JOSEFINA ELLIOTT, CBC #### [address] Urea nitrogen [Mass/Vol] 15 mg/dL Normal 7-25 [facility] Comment on above: Performed By: #### T JOSEFINA ELLIOTT, CBC #### [place] [address] [place] Basophils Auto (Bld) [#/Vol] Ordered By: Reyes Bridges on 10-21-2024 Basophils (Bld) [#/Vol] Automated basophil count 0.0-0.2 [facility] Basophils/100 WBC Auto (Bld) Ordered By: Reyes Bridges on 10-21-2024 Basophils/100 WBC (Bld) Automated basophil % . [facility] Calcium [Mass/volume] in Ser um or PlasmaOrdered By: Reyes Bridges on 10-21-2024 Calcium [Mass/Vol] Calcium [Mass/volume ] in Serum or Plasma 8.6-10.3 [facility] Carbon dioxide, total [Moles /volume] in Serum or PlasmaOrdered By: Reyes Bridges on 10-21-2024 CO2 [Moles/Vol] Carbon dioxide, tota l [Moles/volume] in Serum or Plasma High 21.0-31.0 [facility] Chloride [Moles/volume] in S bere or PlasmaOrdered By: Reyes Bridges on 10-21-2024 Chloride [Moles/Vol] Chloride [Moles/vol ume] in Serum or Plasma 98-107 [facility] Complete Blood Count Auto Di ffon 10-21-2024 Basophils (Bld) [#/Vol] 0.1 10*3/uL Normal 0.0-0.2 [facility] Comment on above: Result Comment: PERF ORMED BY: [place] [address] PATHOLOGIST FRENCH CORD BINDER ALANNA RUDOLPH M.D. Performed By: #### T RIG BMP, CBC #### [facility] [address] [place] [address] Basophils/100 WBC (Bld) 1.1 % Normal . [facility] Comment on above: Performed By: #### T RIG BMP, CBC #### [facility] [address] [place] [address] Eosinophils (Bld) [#/Vol] 0.1 10*3/uL Normal 0.0-0.45 [facility] Comment on above: Performed By: #### T RIG, BMP, CBC #### [place] [address] [place] Eosinophils/100 WBC (Bld) 2.0 % Normal . [facility] Comment on above: Performed By: #### T RIG BMP, CBC #### [address] Erythrocyte distribution width (RBC) [Ratio] 16.1 % High 12.0-14.8 [facility] Comment on above: Performed By: #### T RIG BMP, CBC #### [address] Hematocrit (Bld) [Volume fraction] 40.0 % Normal 38.8-50.0 [facility] Comment on above: Performed By: #### T RIG BMP, CBC #### [address] Hemoglobin (Bld) [Mass/Vol] 13.6 g/dL Normal 13.0-17.0 [facility] Comment on above: Performed By: #### T RIG BMP, CBC #### [address] Lymphocytes (Bld) [#/Vol] 1.5 10*3/uL Normal 1.00-4.8 [facility] Comment on above: Performed By: #### T RIG BMP, CBC #### [place] [address] [place] Lymphocytes/100 WBC (Bld) 29.2 % Normal . [facility] Comment on above: Performed By: #### T RIG BMP, CBC #### [address] MCH (RBC) [Entitic mass] 35.1 pg Normal 27.5-35.2 [facility] Comment on above: Performed By: #### T RIG BMP, CBC #### [address] MCV (RBC) [Entitic vol] 103.1 fL High 83.5-101 [facility] Comment on above: Performed By: #### T RIG BMP, CBC #### [facility] [address] Mean Corpuscular HGB Conc 34.1 g/dL Normal 32.5-35.6 [facility] Comment on above: Performed By: #### T RIG, BMP, CBC #### [address] Monocytes (Bld) [#/Vol] 0.8 10*3/uL Normal 0.0-0.8 [facility] Comment on above: Performed By: #### T RIG, BMP, CBC #### [place] [address] [place] Monocytes/100 WBC (Bld) 16.2 % Normal . [facility] Comment on above: Performed By: #### T RIG, BMP, CBC #### [address] Neutrophils (Bld) [#/Vol] 2.6 10*3/uL Normal 1.8-7.7 [facility] Comment on above: Performed By: #### T RIG, BMP, CBC #### [place] [address] [place] Neutrophils/100 WBC (Bld) 51.5 % Normal . [facility] Comment on above: Performed By: #### T RIG, BMP, CBC #### [place] [address] [place] NRBC% 0.1 /100{WBC} Normal 0-0.5 [facility] Comment on above: Performed By: #### T RIG, BMP, CBC #### [place] [address] [place] Platelet mean volume (Bld) [Entitic vol] 8.2 fL Normal 6.6-10.1 [facility] Comment on above: Performed By: #### T RIG, BMP, CBC #### [place] [address] [place] Platelets (Bld) [#/Vol] 162 10*3/uL Normal 150-450 [facility] Comment on above: Performed By: #### T RIG, BMP, CBC #### [facility] [address] [place] [id number] [facility] RBC (Bld) [#/Vol] 3.88 10*6/uL Low 3.90-5.60 [facility] Comment on above: Performed By: #### T RIG, BMP, CBC #### [facility] [address] [place] [id number] [place] WBC (Bld) [#/Vol] 5.0 10*3/uL Normal 4.1-10.5 [facility] Comment on above: Performed By: #### T RIG, BMP, CBC #### [facility] [address] [place] [id number] [facility] Creatinine [Mass/volume] in Serum or PlasmaOrdered By: Reyes Bridges on 10-21-2024 Creatinine [Mass/Vol] Creatinine [Mass/v olume] in Serum or Plasma 0.70-1.30 [facility] Eosinophils Auto (Bld) [#/Vo l]Ordered By: Reyes Bridges on 10-21-2024 Eosinophils (Bld) [#/Vol] Automated eosinophil count 0.0-0.45 [facility] Eosinophils/100 WBC Auto (Bl d)Ordered By: Reyes Bridges on 10-21-2024 Eosinophils/100 WBC (Bld) Automated eosinophil % . [facility] Erythrocyte distribution wid th Auto (RBC) [Ratio]Ordered By: Reyes Bridges on 10-21-2024 Erythrocyte distribution width (RBC) [Ratio] Erythrocyte distribution width [Ratio] by Automated count High 12.0-14.8 [facility] Glucose [Mass/volume] in Ser um or PlasmaOrdered By: Reyes Bridges on 10-21-2024 Glucose [Mass/Vol] Glucose [Mass/volume ] in Serum or Plasma 70-100 [facility] Comment on above: ADA recommended refe rence rangeRandom Glucose Reference Range is dependent on time and content of last meal. Glucose of more than 200 mg/dL in a nonstressed, ambulatory subject supports the diagnosis of Diabetes Mellitus. Hematocrit Auto (Bld) [Volum e fraction]Ordered By: Reyes Bridges on 10-21-2024 Hematocrit (Bld) [Volume fraction] Hematocrit [Volume Fraction] of Blood by Automated count 38.8-50.0 [facility] Hemoglobin [Mass/volume] in BloodOrdered By: Reyes Bridges on 10-21-2024 Hemoglobin (Bld) [Mass/Vol] Hemoglobin [Mass/volume] in Blood 13.0-17.0 [facility] Leukocytes [#/volume] correc jes for nucleated erythrocytes in Blood by Automated counOrdered By: Reyes Bridges on 10-21-2024 WBC corrected for nucl RBC Auto (Bld) [#/Vol] Leukocytes [#/volume] corrected for nucleated erythrocytes in Blood by Automated coun 4.1-10.5 [facility] Lymphocytes Auto (Bld) [#/Vo l]Ordered By: Reyes Bridges on 10-21-2024 Lymphocytes (Bld) [#/Vol] Lymphocytes [#/volume] in Blood by Automated count 1.00-4.8 [facility] Lymphocytes/100 WBC Auto (Bl d)Ordered By: Reyes Bridges on 10-21-2024 Lymphocytes/100 WBC (Bld) Lymphocytes/100 leukocytes in Blood by Automated count . [facility] MCH Auto (RBC) [Entitic mass ]Ordered By: Reyes Bridges on 10-21-2024 MCH (RBC) [Entitic mass] MCH [Entitic mass] by Automated count 27.5-35.2 [facility] MCHC Auto (RBC) [Mass/Vol]Or dered By: Reyes Bridges on 10-21-2024 MCHC (RBC) [Mass/Vol] MCHC [Mass/volume] by Automated count 32.5-35.6 [facility] MCV Auto (RBC) [Entitic vol] Ordered By: Reyes Bridges on 10-21-2024 MCV (RBC) [Entitic vol] MCV [Entitic volume] by Automated count High 83.5-101 [facility] Monocytes Auto (Bld) [#/Vol] Ordered By: Reyes Bridges on 10-21-2024 Monocytes (Bld) [#/Vol] Automated blood monocyte count 0.0-0.8 [facility] Monocytes/100 WBC Auto (Bld) Ordered By: Reyes Bridges on 10-21-2024 Monocytes/100 WBC (Bld) Automated monocyte % . [facility] Neutrophils Auto (Bld) [#/Vo l]Ordered By: Reyes Bridges on 10-21-2024 Neutrophils (Bld) [#/Vol] Neutrophils [#/volume] in Blood by Automated count 1.8-7.7 [facility] Neutrophils/100 WBC Auto (Bl d)Ordered By: Reyes Bridges on 10-21-2024 Neutrophils/100 WBC (Bld) Automated neutrophil % . [facility] No Panel InformationOrdered By: Reyes Bridges on 10-21-2024 Estimated GFR (CKD-EPI) > 60.0 mL/Min [facility] Creatinine Clearance (Chem N/A [facility] Nucleated erythrocytes [Pres ence] in Blood by Automated countOrdered By: Reyes Bridges on 10-21-2024 Nucleated RBC Auto Ql (Bld) Nucleated erythrocytes [Presence] in Blood by Automated count 0-0.5 [facility] Platelet mean volume Auto (B ld) [Entitic vol]Ordered By: Reyes Bridges on 10-21-2024 Platelet mean volume (Bld) [Entitic vol] Platelet mean volume [Entitic volume] in Blood by Automated count 6.6-10.1 [facility] Platelets Auto (Bld) [#/Vol] Ordered By: Reyes Bridges on 10-21-2024 Platelets (Bld) [#/Vol] Platelets [#/volume] in Blood by Automated count 150-450 [facility] Potassium [Moles/volume] in Serum or PlasmaOrdered By: Reyes Bridges on 10-21-2024 Potassium [Moles/Vol] Potassium [Moles/v olume] in Serum or Plasma 3.5-5.1 [facility] RBC Auto (Bld) [#/Vol]Ordere d By: Reyes Bridges on 10-21-2024 RBC (Bld) [#/Vol] Erythrocytes [#/volu me] in Blood by Automated count Low 3.90-5.60 [facility] Serum or plasma anion gap de terminationOrdered By: Reyes Bridges on 10-21-2024 Anion gap [Moles/Vol] Serum or plasma an ion gap determination 6.0-15.0 [facility] Sodium [Moles/volume] in Ser um or PlasmaOrdered By: Reyes Bridges on 10-21-2024 Sodium [Moles/Vol] Sodium [Moles/volume ] in Serum or Plasma 136-145 [facility] Urea nitrogen [Mass/volume] in Serum or PlasmaOrdered By: Reyes Bridges on 10-21-2024 Urea nitrogen [Mass/Vol] Urea nitrogen [Mass/volume] in Serum or Plasma 7-25 [facility] WBC Auto (Bld) [#/Vol]Ordere d By: Reyes Bridges on 10-21-2024 WBC (Bld) [#/Vol] Leukocytes [#/volume ] in Blood by Automated count 4.1-10.[address] [facility] [address] cervical spine wo conon 0 10-12-2024 CT cervical spine wo con [facility] [address] CT Scan Report Signed Patient: Michael Vaughn MR#: [id number] [birth year] : 1950 Acct:[id number] Age/Sex: 74 / M ADM Date: 10/12/24 Loc: [facility] Room: Type: [facility] Attending Dr: Florence Beltran APRN Copies to: Florence Beltran APRN Ordering Provider: Florence Beltran APRN Date of Service: 10/12/24 CT/CT cervical spine wo con: G95.9 - Disease of spinal cord, unspecified CT CERVICAL SPINE WITHOUT CONTRAST WITH 3D RECONSTRUCTIONS: CLINICAL HISTORY: History of cervical myelopathy. Arm weakness. Prior CT C-spine fusion surgery. COMPARISON: Outside CT cervical spine 07/16/2024 TECHNIQUE: Spiral axial unenhanced images were obtained through the cervical spine. Sagittal, coronal and 3D volume-rendered reconstructions were also reviewed. This CT exam was performed using one or more following dose reduction techniques: Automated exposure control, adjustment of the mA and/or kV according to patient size, or use of iterative reconstruction technique. FINDINGS: Vertebral body heights appear maintained. No fracture is noted. Scattered endplate, uncovertebral and facet joint degenerative changes with moderate spondylosis C5-C7. No prevertebral soft tissue swelling is seen. Visualized lung apices are clear. CT/CT cervical spine wo con IMPRESSION: NO ACUTE FRACTURE. DEGENERATIVE CHANGES INVOLVING THE CERVICAL SPINE WORST AT C5-C7 SIMILAR TO THE PRIOR STUDY. Impression dictated by: Sea Stevenson Jr., D.O.10/12/2024 5:57 PM Dictation Location: [facility] Transcribed By: [facility] 10/12/241756 Dictated By: Sea Stevenson Jr, DO 10/12/241753 Signed By: 10/12/241756 Normal [facility] A1C with Estimated Average Tucker lanie 10-01-2024 Glucose [Mass/Vol] 105 mg/dL Normal [facility] Comment on above: Result Comment: PERF ORMED BY: [address] [place] [address] PATHOLOGIST FRENCH CORD BINDER ALANNA RUDOLPH M.D. Performed By: #### G LULS #### Point of Care testing , HbA1c (Bld) [Mass fraction] 5.3 % Normal 4.3-5.6 [facility] Comment on above: Result Comment: Incr eased risk for diabetes: 5.7 - 6.4 diabetes: >6.4 glycemic control for adults with diabetes: <7.0 Performed By: #### G LULS #### Point of Care testing , Basic Metabolic Panel 09-18 Anion gap [Moles/Vol] 11.6 mmol/L Normal 6.0-15.0 [facility] Comment on above: Performed By: #### G LULS #### Point of Care testing , Calcium [Mass/Vol] 8.7 mg/dL Normal 8.6-10.3 [facility] Comment on above: Performed By: #### G LULS #### Point of Care testing , Chloride [Moles/Vol] 100 mmol/L Normal 98-107 [facility] Comment on above: Performed By: #### G LULS #### Point of Care testing , CO2 [Moles/Vol] 27.8 mmol/L Normal 21.0-31.0 [facility] Comment on above: Performed By: #### G LULS #### Point of Care testing , Creatinine [Mass/Vol] 0.67 mg/dL Low 0.70-1.30 [facility] Comment on above: Performed By: #### G LULS #### Point of Care testing , Creatinine Clr Calc Pharmacy 88.47 Normal [facility] Comment on above: Performed By: #### G LULS #### Point of Care testing , GFR/1.73 sq M.predicted MDRD (S/P/Bld) [Vol rate/Area] mL/min/{1.73_m2} Normal [facility] Comment on above: Performed By: #### G LULS #### Point of Care testing , Glucose [Mass/Vol] 101 mg/dL High 70-100 [facility] Comment on above: Result Comment: [facility] Glucose Reference Range is dependent on time and content of last meal. Glucose of more than 200 mg/dL in a nonstressed, ambulatory subject supports the diagnosis of Diabetes Mellitus. ADA recommended reference range Performed By: #### G LULS #### Point of Care testing , Potassium [Moles/Vol] 3.4 mmol/L Low 3.5-5.1 [facility] Comment on above: Performed By: #### G LULS #### Point of Care testing , Sodium [Moles/Vol] 136 mmol/L Normal 136-145 [facility] Comment on above: Performed By: #### G LULS #### Point of Care testing , Urea nitrogen [Mass/Vol] 15 mg/dL Normal 7-25 [facility] Comment on above: Performed By: #### G LULS #### Point of Care testing , Basophils Auto (Bld) [#/Vol] Ordered By: Baron Ruggiero on 10-01-2024 Basophils (Bld) [#/Vol] Automated basophil count 0.0-0.2 [facility] Basophils/100 WBC Auto (Bld) Ordered By: Baron Ruggiero on 10-01-2024 Basophils/100 WBC (Bld) Automated basophil % . [facility] Blood estimated average gluc ose determination by estimation from glycated hemoglobinOrdered By: Baron Ruggiero on 10-01-2024 Average glucose Estimated from glycated hemoglobin (Bld) [Mass/Vol] Glucose mean value [Mass/volume] in Blood Estimated from glycated hemoglobin [facility] Calcium [Mass/volume] in Ser um or PlasmaOrdered By: Baron Ruggiero on 10-01-2024 Calcium [Mass/Vol] Calcium [Mass/volume ] in Serum or Plasma 8.6-10.3 [facility] Carbon dioxide, total [Moles /volume] in Serum or PlasmaOrdered By: Baron Ruggiero on 10-01-2024 CO2 [Moles/Vol] Carbon dioxide, tota l [Moles/volume] in Serum or Plasma 21.0-31.0 [facility] Chloride [Moles/volume] in S bere or PlasmaOrdered By: Baron Ruggiero on 10-01-2024 Chloride [Moles/Vol] Chloride [Moles/vol ume] in Serum or Plasma 98-107 [facility] Cholesterol [Mass/volume] in Serum or PlasmaOrdered By: Baron Ruggiero on 10-01-2024 Cholesterol [Mass/Vol] Cholesterol [Mass/volume] in Serum or Plasma 140-200 [facility] Comment on above: Chol less than 200 m g/dl low riskChol 201-239 mg/dl borderline riskChol 240 mg/dl and greater high risk Cholesterol in HDL [Mass/vol ume] in Serum or PlasmaOrdered By: Baron Ruggiero on 10-01-2024 Cholesterol in HDL [Mass/Vol] Serum or plasma high density lipoprotein (HDL) cholesterol measurement 23-92 [facility] Comment on above: HDL CHOL ATP-III CLA SSIFICATION Cardiovascular RiskHDL > or equal to 60 mg/dL LOWHDL < 40 mg/dL HIGH Cholesterol in LDL Calc [Mas s/Vol]Ordered By: Baron Ruggiero on 10-01-2024 Cholesterol in LDL [Mass/Vol] Cholesterol in LDL [Mass/volume] in Serum or Plasma by calculation 0-100 [facility] Comment on above: LDL ATP III CLASSIFI CATIONLDL less than 100 mg/dL OptimalLDL 100-129 mg/dL Near or above optimalLDL 130-159 mg/dL Borderline highLDL 160-189 mg/dL HighLDL greater than 189 mg/dL Very high Cholesterol in VLDL Calc [Ma ss/Vol]Ordered By: Baron Ruggiero on 10-01-2024 Cholesterol in VLDL [Mass/Vol] Cholesterol in VLDL [Mass/volume] in Serum or Plasma by calculation [facility] Complete Blood Count Auto Di ffon 10-01-2024 Basophils (Bld) [#/Vol] 0.1 10*3/uL Normal 0.0-0.2 [facility] Comment on above: Result Comment: PERF ORMED BY: [facility] [address] [place] [address] PATHOLOGIST FRENCH CORD BINDER ALANNA RUDOLPH M.D. Performed By: #### G LULS #### Point of Care testing , Basophils/100 WBC (Bld) 0.9 % Normal . [facility] Comment on above: Performed By: #### G LULS #### Point of Care testing , Eosinophils (Bld) [#/Vol] 0.1 10*3/uL Normal 0.0-0.45 [facility] Comment on above: Performed By: #### G LULS #### Point of Care testing , Eosinophils/100 WBC (Bld) 2.3 % Normal . [facility] Comment on above: Performed By: #### G LULS #### Point of Care testing , Erythrocyte distribution width (RBC) [Ratio] 15.6 % High 12.0-14.8 [facility] Comment on above: Performed By: #### G LULS #### Point of Care testing , Hematocrit (Bld) [Volume fraction] 38.9 % Normal 38.8-50.0 [facility] Comment on above: Performed By: #### G LULS #### Point of Care testing , Hemoglobin (Bld) [Mass/Vol] 13.3 g/dL Normal 13.0-17.0 [facility] Comment on above: Performed By: #### G LULS #### Point of Care testing , Lymphocytes (Bld) [#/Vol] 1.3 10*3/uL Normal 1.00-4.8 [facility] Comment on above: Performed By: #### G LULS #### Point of Care testing , Lymphocytes/100 WBC (Bld) 23.5 % Normal . [facility] Comment on above: Performed By: #### G LULS #### Point of Care testing , MCH (RBC) [Entitic mass] 34.7 pg Normal 27.5-35.2 [facility] Comment on above: Performed By: #### G LULS #### Point of Care testing , MCV (RBC) [Entitic vol] 101.1 fL High 83.5-101 [facility] Comment on above: Performed By: #### G LULS #### Point of Care testing , Mean Corpuscular HGB Conc 34.3 g/dL Normal 32.5-35.6 [facility] Comment on above: Performed By: #### G LULS #### Point of Care testing , Monocytes (Bld) [#/Vol] 0.8 10*3/uL Normal 0.0-0.8 [facility] Comment on above: Performed By: #### G LULS #### Point of Care testing , Monocytes/100 WBC (Bld) 15.5 % Normal . [facility] Comment on above: Performed By: #### G LULS #### Point of Care testing , Neutrophils (Bld) [#/Vol] 3.1 10*3/uL Normal 1.8-7.7 [facility] Comment on above: Performed By: #### G LULS #### Point of Care testing , Neutrophils/100 WBC (Bld) 57.8 % Normal . [facility] Comment on above: Performed By: #### G LULS #### Point of Care testing , NRBC% 0.1 /100{WBC} Normal 0-0.5 [facility] Comment on above: Performed By: #### G LULS #### Point of Care testing , Platelet mean volume (Bld) [Entitic vol] 7.5 fL Normal 6.6-10.1 [facility] Comment on above: Performed By: #### G LULS #### Point of Care testing , Platelets (Bld) [#/Vol] 219 10*3/uL Normal 150-450 [facility] Comment on above: Performed By: #### G LULS #### Point of Care testing , RBC (Bld) [#/Vol] 3.84 10*6/uL Low 3.90-5.[address] [facility] Comment on above: Performed By: #### G LULS #### Point of Care testing , WBC (Bld) [#/Vol] 5.4 10*3/uL Normal 4.1-10.5 [facility] Comment on above: Performed By: #### G LULS #### Point of Care testing , Creatinine [Mass/volume] in Serum or PlasmaOrdered By: Baron Ruggiero on 10-01-2024 Creatinine [Mass/Vol] Creatinine [Mass/v olume] in Serum or Plasma Low 0.70-1.30 [facility] Eosinophils Auto (Bld) [#/Vo l]Ordered By: Baron Ruggiero on 10-01-2024 Eosinophils (Bld) [#/Vol] Automated eosinophil count 0.0-0.45 [facility] Eosinophils/100 WBC Auto (Bl d)Ordered By: Baron Ruggiero on 10-01-2024 Eosinophils/100 WBC (Bld) Automated eosinophil % . [facility] Erythrocyte distribution wid th Auto (RBC) [Ratio]Ordered By: Baron Ruggiero on 10-01-2024 Erythrocyte distribution width (RBC) [Ratio] Erythrocyte distribution width [Ratio] by Automated count High 12.0-14.8 [facility] Glucose [Mass/volume] in Ser um or PlasmaOrdered By: Baron Ruggiero on 10-01-2024 Glucose [Mass/Vol] Glucose [Mass/volume ] in Serum or Plasma High 70-100 [facility] Comment on above: ADA recommended refe rence rangeRandom Glucose Reference Range is dependent on time and content of last meal. Glucose of more than 200 mg/dL in a nonstressed, ambulatory subject supports the diagnosis of Diabetes Mellitus. Hematocrit Auto (Bld) [Volum e fraction]Ordered By: Baron Ruggiero on 10-01-2024 Hematocrit (Bld) [Volume fraction] Hematocrit [Volume Fraction] of Blood by Automated count 38.8-50.0 [facility] Hemoglobin A1c/Hemoglobin.to sanam in BloodOrdered By: Baron Ruggiero on 10-01-2024 HbA1c (Bld) [Mass fraction] Hemoglobin A1c percentage 4.3-5.6 [facility] Comment on above: Increased risk for d iabetes: 5.7 - 6.4diabetes: >6.4glycemic control for adults with diabetes: <7.0 Hemoglobin [Mass/volume] in BloodOrdered By: Baron Ruggiero on 10-01-2024 Hemoglobin (Bld) [Mass/Vol] Hemoglobin [Mass/volume] in Blood 13.0-17.0 [facility] Leukocytes [#/volume] correc jes for nucleated erythrocytes in Blood by Automated counOrdered By: Baron Ruggiero on 10-01-2024 WBC corrected for nucl RBC Auto (Bld) [#/Vol] Leukocytes [#/volume] corrected for nucleated erythrocytes in Blood by Automated coun 4.1-10.5 [facility] Lipid Panelon 10-01-2024 Cholesterol [Mass/Vol] 150 mg/dL Normal 140-200 [facility] Comment on above: Result Comment: Chol less than 200 mg/dl low risk Chol 201-239 mg/dl borderline risk Chol 240 mg/dl and greater high risk Performed By: #### G LULS #### Point of Care testing , Cholesterol in HDL [Mass/Vol] 90 mg/dL Normal 23-92 [facility] Comment on above: Result Comment: HDL CHOL ATP-III CLASSIFICATION Cardiovascular Risk HDL > or equal to 60 mg/dL LOW HDL < 40 mg/dL HIGH Performed By: #### G LULS #### Point of Care testing , Cholesterol.total/Cho lesterol in HDL [Mass ratio] 1.7 {ratio} Normal <5.0 [facility] Comment on above: Result Comment: PERF ORMED BY: [facility] [address] [place] [address] PATHOLOGIST FRENCH CORD BINDER MOHAMED M EL-FAKHARANY M.D. Performed By: #### G LULS #### Point of Care testing , LDL Cholesterol,Calculate d 50 mg/dL Normal 0-100 [facility] Comment on above: Result Comment: LDL ATP III CLASSIFICATION LDL less than 100 mg/dL Optimal LDL 100-129 mg/dL Near or above optimal LDL 130-159 mg/dL Borderline high LDL 160-189 mg/dL High LDL greater than 189 mg/dL Very high Performed By: #### G LULS #### Point of Care testing , Triglyceride w/Reflex 48 mg/dL Normal 0-149 [facility] Comment on above: Result Comment: TRIG ATP III CLASSIFICATION TRIG less than 150 mg/dL Normal TRIG 150-199 mg/dL Borderline high TRIG 200-500 mg/dL High TRIG greater than 500 mg/dL Very high Standard traceable to the Center for Disease Conrtrol and Prevention (CDC) test method. Performed By: #### G LULS #### Point of Care testing , VLDL CHOLESTEROL 9 mg/dL Normal [facility] Comment on above: Performed By: #### G LULS #### Point of Care testing , Lymphocytes Auto (Bld) [#/Vo l]Ordered By: Baron Ruggiero on 10-01-2024 Lymphocytes (Bld) [#/Vol] Lymphocytes [#/volume] in Blood by Automated count 1.00-4.8 [facility] Lymphocytes/100 WBC Auto (Bl d)Ordered By: Baron Ruggiero on 10-01-2024 Lymphocytes/100 WBC (Bld) Lymphocytes/100 leukocytes in Blood by Automated count . [facility] MCH Auto (RBC) [Entitic mass ]Ordered By: Baron Ruggiero on 10-01-2024 MCH (RBC) [Entitic mass] MCH [Entitic mass] by Automated count 27.5-35.2 [facility] MCHC Auto (RBC) [Mass/Vol]Or dered By: Baron Ruggiero on 10-01-2024 MCHC (RBC) [Mass/Vol] MCHC [Mass/volume] by Automated count 32.5-35.6 [facility] MCV Auto (RBC) [Entitic vol] Ordered By: Baron Ruggiero on 10-01-2024 MCV (RBC) [Entitic vol] MCV [Entitic volume] by Automated count High 83.5-101 [facility] Magnesiumon 10-01-2024 Magnesium [Mass/Vol] 2.1 mg/dL Normal 1.9-2.7 [facility] Comment on above: Performed By: #### G TYRA #### Point of Care testing , Magnesium [Mass/volume] in S bere or PlasmaOrdered By: Baron Ruggiero on 10-01-2024 Magnesium [Mass/Vol] Magnesium [Mass/vol ume] in Serum or Plasma 1.9-2.7 [facility] Monocytes Auto (Bld) [#/Vol] Ordered By: Baron Ruggiero on 10-01-2024 Monocytes (Bld) [#/Vol] Automated blood monocyte count 0.0-0.8 [facility] Monocytes/100 WBC Auto (Bld) Ordered By: Baron Ruggiero on 10-01-2024 Monocytes/100 WBC (Bld) Automated monocyte % . [facility] Neutrophils Auto (Bld) [#/Vo l]Ordered By: Baron Ruggiero on 10-01-2024 Neutrophils (Bld) [#/Vol] Neutrophils [#/volume] in Blood by Automated count 1.8-7.7 [facility] Neutrophils/100 WBC Auto (Bl d)Ordered By: Baron Ruggiero on 10-01-2024 Neutrophils/100 WBC (Bld) Automated neutrophil % . [facility] No Panel InformationOrdered By: Baron Ruggiero on 10-01-2024 Estimated GFR (CKD-EPI) > 60.0 mL/Min [facility] Creatinine Clearance (Chem 88.47 [facility] Nucleated erythrocytes [Pres ence] in Blood by Automated countOrdered By: Baron Ruggiero on 10-01-2024 Nucleated RBC Auto Ql (Bld) Nucleated erythrocytes [Presence] in Blood by Automated count 0-0.5 [facility] Platelet mean volume Auto (B ld) [Entitic vol]Ordered By: Baron Ruggiero on 10-01-2024 Platelet mean volume (Bld) [Entitic vol] Platelet mean volume [Entitic volume] in Blood by Automated count 6.6-10.1 [facility] Platelets Auto (Bld) [#/Vol] Ordered By: Baron Ruggiero on 10-01-2024 Platelets (Bld) [#/Vol] Platelets [#/volume] in Blood by Automated count 150-450 [facility] Potassium [Moles/volume] in Serum or PlasmaOrdered By: Baron Ruggiero on 10-01-2024 Potassium [Moles/Vol] Potassium [Moles/v olume] in Serum or Plasma Low 3.5-5.1 [facility] RBC Auto (Bld) [#/Vol]Ordere d By: Baron Ruggiero on 10-01-2024 RBC (Bld) [#/Vol] Erythrocytes [#/volu me] in Blood by Automated count Low 3.90-5.60 [facility] Serum or plasma anion gap de terminationOrdered By: Baron Ruggiero on 10-01-2024 Anion gap [Moles/Vol] Serum or plasma an ion gap determination 6.0-15.0 [facility] Serum or plasma total choles terol/high density lipoprotein (HDL) cholesterol mass ratOrdered By: Baron Ruggiero on 10-01-2024 Cholesterol.total/Cho lesterol in HDL [Mass ratio] Serum or plasma total cholesterol/high density lipoprotein (HDL) cholesterol mass rat <5.0 [facility] Sodium [Moles/volume] in Ser um or PlasmaOrdered By: Baron Ruggiero on 10-01-2024 Sodium [Moles/Vol] Sodium [Moles/volume ] in Serum or Plasma 136-145 [facility] Triglyceride [Mass/volume] i n Serum or PlasmaOrdered By: Baron Ruggiero on 10-01-2024 Triglyceride [Mass/Vol] Triglyceride [Mass/volume] in Serum or Plasma 0-149 [facility] Comment on above: TRIG ATP III CLASSIF ICATIONTRIG less than 150 mg/dL NormalTRIG 150-199 mg/dL Borderline highTRIG 200-500 mg/dL High TRIG greater than 500 mg/dL Very highStandard traceable to the Center for Disease Conrtrol and Prevention (CDC) test method. Urea nitrogen [Mass/volume] in Serum or PlasmaOrdered By: Baron Ruggiero on 10-01-2024 Urea nitrogen [Mass/Vol] Urea nitrogen [Mass/volume] in Serum or Plasma 7- [facility] WBC Auto (Bld) [#/Vol]Ordere d By: Baron Ruggiero on 10-01-2024 WBC (Bld) [#/Vol] Leukocytes [#/volume ] in Blood by Automated count 4.1-10.5 [facility] Alanine aminotransferase [En zymatic activity/volume] in Serum or PlasmaOrdered By: Lynette Richardson on 09-30-2024 ALT [Catalytic activity/Vol] Alanine aminotransferase [Enzymatic activity/volume] in Serum or Plasma 7 [facility] Albumin [Mass/volume] in Ser um or Plasma by Bromocresol green (BCG) dye binding methoOrdered By: Lynette Richardson on 09-30-2024 Albumin BCG dye [Mass/Vol] Albumin [Mass/volume] in Serum or Plasma by Bromocresol green (BCG) dye binding metho 3.5-5.7 [facility] Alkaline phosphatase [Enzyma tic activity/volume] in Serum or PlasmaOrdered By: Lynette Richardson on 09-30-2024 ALP [Catalytic activity/Vol] Alkaline phosphatase [Enzymatic activity/volume] in Serum or Plasma 34-104 [facility] Appearance of UrineOrdered B y: Lynette Richardson on 09-30-2024 Appearance (U) Urine appearance [facility] Aspartate aminotransferase [ Enzymatic activity/volume] in Serum or PlasmaOrdered By: Lynette Richardson 09-30-2024 AST [Catalytic activity/Vol] Aspartate aminotransferase [Enzymatic activity/volume] in Serum or Plasma 13-39 [facility] Basophils Auto (Bld) [#/Vol] Ordered By: Lynette Richardson on 09-30-2024 Basophils (Bld) [#/Vol] Automated basophil count 0.0-0.2 [facility] Basophils/100 WBC Auto (Bld) Ordered By: Lynette Richardson on 09-30-2024 Basophils/100 WBC (Bld) Automated basophil % . [facility] Bilirubin Test strip Ql (U)O rdered By: Lynette Richardson 09-30-2024 Bilirubin Ql (U) Bilirubin.total [Presence] in Urine by Test strip Negative [facility] Bilirubin.total [Mass/volume ] in Serum or PlasmaOrdered By: Lynette Richardson on 09-30-2024 Bilirubin [Mass/Vol] Bilirubin.total [Mass/volume] in Serum or Plasma 0.3-1.0 [facility] BioFire Not Detectedon 09-30 BioFire Not Detected Not detected Normal Not Detecte [facility] Comment on above: Result Comment: This is a duplicate RP2.1 COVID (PCR) result to be used for statistical tracking purpose only. PERFORMED BY: [place] [address] PATHOLOGIST FRENCH CORD BINDER ALANNA RUDOLPH M.D. Performed By: #### T RIG, BMP, CBC #### [address] Blood carbon dioxide, total measurement by calculation (moles/volume)Ordered By: Lynette Richardson on 09-30-2024 CO2 Calc (Bld) [Moles/Vol] Blood carbon dioxide, total measurement by calculation (moles/volume) 23- [facility] COVID-19 Detected/Not Detect edOrdered By: Baron Ruggiero on 09-30-2024 SARS-CoV-2 (COVID-19) RNA RONEL+non-probe Ql (Nph) Not detected Not Detecte [facility] Comment on above: This is a duplicate RP2.1 COVID (PCR) result to be used for statistical tracking purpose only. CT angio headon 09-30-2024 CT angio head [facility] [place] [address] [place] [address] CT Scan Report Signed Patient: Michael Vaughn MR#: [id number] [birth year] : 1950 Acct:[id number] Age/Sex: 74 / M ADM Date: 09/30/24 Loc: Room: [address] [place] [address] Type: ADM INOo Attending Dr: Baron Ruggiero DO Copies to: Do Baron Preston DO Ordering Provider: Lynette Richardson Do Date of Service: 09/30/24 CT/CT angio neck: Stroke Standby ([id number]) CT/CT angio head: Stroke Standby CT angio head 09/30/2024 9:36 AM SIGNS AND SYMPTOMS: Stroke Standby TECHNIQUE: Multi-detector CT angiography axial slices of the head and neck during intravenous administration of IV contrast material. Sagittal, coronal, and 3-D reconstructions were performed and viewed on a separate workstation. CT was performed with one or more of the following dose reduction techniques: Automated exposure control, adjustment of the mA and/or kV according to patient size, or use of iterative reconstruction technique. Stenoses were measured using the NASCET criteria. COMPARISON: CT head 09/30/2024 FINDINGS: CTA HEAD: Mild plaque involving the intracranial ICAs. Both carotid termini patent. Anterior cerebral arteries and middle cerebral arteries are patent. Right vertebral artery functionally becomes PICA. Left vertebral artery becomes the basilar artery. Basilar tip and bifurcation patent. origin left posterior cerebral artery. CTA NECK: There is a normal three-vessel arch. The subclavian arteries are within normal limits. The vertebral arteries arise from the subclavian arteries and are normal in course and caliber up to the skull base. The common and internal carotid arteries noted mild plaque both bifurcations without significant narrowing.. Visualized lung parenchyma is clear. Multilevel degenerative changes of the cervical spine. The paraspinous soft tissues are within normal limits. CT/CT angio head IMPRESSION: Negative for large vessel occlusion or hemodynamically significant stenosis. Impression dictated by: Luis F Kirk M.D.09/30/2024 9:59 AM Dictation Location: [place] [address] Transcribed By: [facility] 09/30/24 0959 Dictated By: Luis F Kirk MD 09/30/24 0949 Signed By: 09/30/24 0959 Normal [facility] CT head stroke alert wo haris n 09-30-2024 CT head stroke alert wo [facility] [place] [address] CT Scan Report Signed Patient: Michael Vaughn MR#: [id number] [birth year] : 1950 Acct:[id number] Age/Sex: 74 / M ADM Date: 09/30/24 Loc: ER Room: Type: PRE ER Attending Dr: Copies to: Lynette Richardson Do Ordering Provider: Lynette Richardson Do Date of Service: 09/30/24 CT/CT head stroke alert wo con: acute stroke/neuro deficits CT BRAIN WITHOUT CONTRAST: CLINICAL HISTORY: Stroke alert, last known well 11:00 PM last night COMPARISON: 09/21/2019 TECHNIQUE: Contiguous axial unenhanced images were obtained through the brain. This CT exam was performed using one or more following dose reduction techniques: Automated exposure control, adjustment of the mA and/or kV according to patient size, or use of iterative reconstruction technique. FINDINGS: There is no evidence of midline shift, intra or extra-axial fluid collection, or hemorrhage Focal hypoattenuation left precentral gyrus possibly related to microvascular changes. Otherwise mild periventricular subcortical hypoattenuation suggestive chronic small vessel disease . Dilated perivascular space left basal ganglia. There are vascular calculations Visualized intraorbital contents appear unremarkable. Visualized paranasal sinuses are clear. Left frontal scalp soft tissue swelling and subcutaneous hematoma, slightly improved. CT/CT head stroke alert wo con IMPRESSION: NO ACUTE INTRACRANIAL ABNORMALITY. CHRONIC MICROVASCULAR AND INVOLUTIONAL CHANGES. LEFT FRONTAL SCALP SOFT TISSUE SWELLING, MILDLY IMPROVED. Discussed with the emergency department physician at 9:34 AM 09/30/2024 Impression dictated by: Luis F Kirk M.D.09/30/2024 9:36 AM Dictation Location: [place] [address] Transcribed By: [facility] 09/30/2436 Dictated By: Luis F Kirk MD 09/30/2430 Signed By: 09/30/24 0936 Normal [facility] Calcium [Mass/volume] in Ser um or PlasmaOrdered By: Lynette Richardson on 09-30-2024 Calcium [Mass/Vol] Calcium [Mass/volume ] in Serum or Plasma 8.6-10.3 [facility] Carbon dioxide, total [Moles /volume] in Serum or PlasmaOrdered By: Lynette Richardson on 09-30-2024 CO2 [Moles/Vol] Carbon dioxide, tota l [Moles/volume] in Serum or Plasma 21.0-31.0 [facility] Chloride (Bld) [Moles/Vol]Or dered By: Lynette Richardson on 09-30-2024 Chloride [Moles/Vol] Whole blood chlorid e measurement 98-109 [facility] Chloride [Moles/volume] in S bere or PlasmaOrdered By: Lynette Richardson on 09-30-2024 Chloride [Moles/Vol] Chloride [Moles/vol ume] in Serum or Plasma 98-107 [facility] Color Auto (U)Ordered By: Tereso Richardson on 09-30-2024 Color (U) Color of Urine by Auto Yellow Fi [facility] Complete Blood Count Auto Di ffon 09-30-2024 Basophils (Bld) [#/Vol] 0.1 10*3/uL Normal 0.0-0.2 [facility] Comment on above: Result Comment: PERF ORMED BY: [facility] [address] [place] [address] PATHOLOGIST FRENCH CORD BINDER ALANNA RUDOLPH M.D. Performed By: #### G LULS #### Point of Care testing , Basophils/100 WBC (Bld) 0.9 % Normal . [facility] Comment on above: Performed By: #### G LULS #### Point of Care testing , Eosinophils (Bld) [#/Vol] 0.1 10*3/uL Normal 0.0-0.45 [facility] Comment on above: Performed By: #### G LULS #### Point of Care testing , Eosinophils/100 WBC (Bld) 1.7 % Normal . [facility] Comment on above: Performed By: #### G LULS #### Point of Care testing , Erythrocyte distribution width (RBC) [Ratio] 15.2 % High 12.0-14.8 [facility] Comment on above: Performed By: #### G LULS #### Point of Care testing , Hematocrit (Bld) [Volume fraction] 39.7 % Normal 38.8-50.0 [facility] Comment on above: Performed By: #### G LULS #### Point of Care testing , Hemoglobin (Bld) [Mass/Vol] 13.7 g/dL Normal 13.0-17.0 [facility] Comment on above: Performed By: #### G LULS #### Point of Care testing , Lymphocytes (Bld) [#/Vol] 1.7 10*3/uL Normal 1.00-4.8 [facility] Comment on above: Performed By: #### G LULS #### Point of Care testing , Lymphocytes/100 WBC (Bld) 27.0 % Normal . [facility] Comment on above: Performed By: #### G LULS #### Point of Care testing , MCH (RBC) [Entitic mass] 35.3 pg High 27.5-35.2 [facility] Comment on above: Performed By: #### G LULS #### Point of Care testing , MCV (RBC) [Entitic vol] 102.0 fL High 83.5-101 [facility] Comment on above: Performed By: #### G LULS #### Point of Care testing , Mean Corpuscular HGB Conc 34.6 g/dL Normal 32.5-35.6 [facility] Comment on above: Performed By: #### G LULS #### Point of Care testing , Monocytes (Bld) [#/Vol] 1.1 10*3/uL High 0.0-0.8 [facility] Comment on above: Performed By: #### G LULS #### Point of Care testing , Monocytes/100 WBC (Bld) 17.57 % Normal 0.00-20.00 [facility] Comment on above: Performed By: #### G LULS #### Point of Care testing , Monocytes/100 WBC (Bld) 16.6 % Normal . [facility] Comment on above: Performed By: #### G LULS #### Point of Care testing , Neutrophils (Bld) [#/Vol] 3.5 10*3/uL Normal 1.8-7.7 [facility] Comment on above: Performed By: #### G LULS #### Point of Care testing , Neutrophils/100 WBC (Bld) 53.8 % Normal . [facility] Comment on above: Performed By: #### G LULS #### Point of Care testing , NRBC% 0.1 /100{WBC} Normal 0-0.5 [facility] Comment on above: Performed By: #### G LULS #### Point of Care testing , Platelet mean volume (Bld) [Entitic vol] 7.0 fL Normal 6.6-10.1 [facility] Comment on above: Performed By: #### G JUANLS #### Point of Care testing , Platelets (Bld) [#/Vol] 221 10*3/uL Normal 150-450 [facility] Comment on above: Performed By: #### G LULS #### Point of Care testing , RBC (Bld) [#/Vol] 3.89 10*6/uL Low 3.90-5.[address] [facility] Comment on above: Performed By: #### G JUANLS #### Point of Care testing , WBC (Bld) [#/Vol] 6.5 10*3/uL Normal 4.1-10.5 [facility] Comment on above: Performed By: #### G JUANLS #### Point of Care testing , Comprehensive Metabolic Pane april 09-30-2024 Albumin [Mass/Vol] 4.3 g/dL Normal 3.5-5.7 [facility] Comment on above: Performed By: #### G JUANLS #### Point of Care testing , Albumin/Globulin [Mass ratio] 1.5 {ratio} Normal [facility] Comment on above: Performed By: #### G JUANLS #### Point of Care testing , ALP [Catalytic activity/Vol] 62 U/L Normal 34-104 [facility] Comment on above: Performed By: #### G JUANLS #### Point of Care testing , ALT [Catalytic activity/Vol] 13 U/L Normal 7-52 [facility] Comment on above: Performed By: #### G JUANLS #### Point of Care testing , Anion gap [Moles/Vol] 10.0 mmol/L Normal 6.0-15.0 [facility] Comment on above: Performed By: #### G JUANLS #### Point of Care testing , AST [Catalytic activity/Vol] 25 U/L Normal 13-39 [facility] Comment on above: Performed By: #### G LULS #### Point of Care testing , Bilirubin [Mass/Vol] 0.5 mg/dL Normal 0.3-1.0 [facility] Comment on above: Performed By: #### G LULS #### Point of Care testing , Calcium [Mass/Vol] 8.6 mg/dL Normal 8.6-10.3 [facility] Comment on above: Performed By: #### G LULS #### Point of Care testing , Chloride [Moles/Vol] 101 mmol/L Normal 98-107 [facility] Comment on above: Performed By: #### G LULS #### Point of Care testing , CO2 [Moles/Vol] 28.7 mmol/L Normal 21.0-31.0 [facility] Comment on above: Performed By: #### G LULS #### Point of Care testing , Creatinine [Mass/Vol] 0.72 mg/dL Normal 0.70-1.30 [facility] Comment on above: Performed By: #### G LULS #### Point of Care testing , Creatinine Clr Calc Pharmacy 88.38 Normal [facility] Comment on above: Result Comment: PERF ORMED BY: [address] [place] [address] PATHOLOGIST FRENCH CORD BINDER ALANNA RUDOLPH M.D. Performed By: #### G LULS #### Point of Care testing , GFR/1.73 sq M.predicted MDRD (S/P/Bld) [Vol rate/Area] mL/min/{1.73_m2} Normal [facility] Comment on above: Performed By: #### G LULS #### Point of Care testing , Globulin (S) [Mass/Vol] 2.8 g/dL Normal [facility] Comment on above: Performed By: #### G LULS #### Point of Care testing , Glucose [Mass/Vol] 75 mg/dL Normal 70-100 [facility] Comment on above: Result Comment: [place] om Glucose Reference Range is dependent on time and content of last meal. Glucose of more than 200 mg/dL in a nonstressed, ambulatory subject supports the diagnosis of Diabetes Mellitus. ADA recommended reference range Performed By: #### G LULS #### Point of Care testing , Potassium [Moles/Vol] 3.7 mmol/L Normal 3.5-5.1 [facility] Comment on above: Performed By: #### G LULS #### Point of Care testing , Protein [Mass/Vol] 7.1 g/dL Normal 6.4-8.9 [facility] Comment on above: Performed By: #### G LULS #### Point of Care testing , Sodium [Moles/Vol] 136 mmol/L Normal 136-145 [facility] Comment on above: Performed By: #### G LULS #### Point of Care testing , Urea nitrogen [Mass/Vol] 15 mg/dL Normal 7-25 [facility] Comment on above: Performed By: #### G LULS #### Point of Care testing , Creatine Kinaseon 09-30-2024 CK [Catalytic activity/Vol] 115 U/L Normal 30-223 [facility] Comment on above: Performed By: #### G LULS #### Point of Care testing , Creatine kinase [Enzymatic a ctivity/volume] in Serum or PlasmaOrdered By: Lynette Richardson on 09-30-2024 CK [Catalytic activity/Vol] Creatine kinase [Enzymatic activity/volume] in Serum or Plasma 30- [facility] Creatinine (Bld) [Mass/Vol]O rdered By: Lynette Richardson on 09-30-2024 Creatinine [Mass/Vol] Whole blood creati nine measurement 0.6-1.3 [facility] Comment on above: ER/ESD physician is notified/shown all ISTAT results.Critical values may be confirmed by laboratory testing ifdeemed necessary by ER attending doctor. Creatinine [Mass/volume] in Serum or PlasmaOrdered By: Lynette Richardson on 09-30-2024 Creatinine [Mass/Vol] Creatinine [Mass/v olume] in Serum or Plasma 0.70-1.30 [facility] ECG 12 lead ECGon 09-30-2024 ECG 12 lead ECG [facility] [address] Electrocardiograph Report Signed Patient: Michael Vaughn MR#: [id number] 94 : 1950 Acct:[id number] Age/Sex: 74 / M ADM Date: 09/30/24 Loc: 3T Room: [address] [place] [address] Type: DIS INOo Attending Dr: Baron Ruggiero DO Ordering Provider: Lynette Richardson Do Date of Service: 09/30/24 ECG/ECG 12 lead ECG: Neuro Symptoms/Deficit Copies to: Test Reason : Blood Pressure : 194/95 mmHG Vent. Rate : 63 BPM Atrial Rate : 63 BPM P-R Int : 160 ms QRS Dur : 80 ms QT Int : 434 ms P-R-T Axes : 47 44 20 degrees QTcB Int : 444 ms Normal sinus rhythm Normal ECG No previous ECGs available Confirmed by Lynette Richardson ([id number]) on 09/30/2024 3:20:54 PM Referred By: Electronically Signed By: Lynette Richardson Transcribed By: MUS Signed By Lynette Richardson Do 5 1520 Normal [facility] Eosinophils Auto (Bld) [#/Vo l]Ordered By: Lynette Richardson on 09-30-2024 Eosinophils (Bld) [#/Vol] Automated eosinophil count 0.0-0.45 [facility] Eosinophils/100 WBC Auto (Bl d)Ordered By: Lynette Richardson on 09-30-2024 Eosinophils/100 WBC (Bld) Automated eosinophil % . [facility] Erythrocyte distribution wid th Auto (RBC) [Ratio]Ordered By: Lynette Richardson on 09-30-2024 Erythrocyte distribution width (RBC) [Ratio] Erythrocyte distribution width [Ratio] by Automated count High 12.0-14.8 [facility] Globulin Calc (S) [Mass/Vol] Ordered By: Lynette Richardson on 09-30-2024 Globulin (S) [Mass/Vol] Serum globulin measurement by calculation (mass/volume) [facility] Glucose Glucometer (BldC) [M ass/Vol]Ordered By: Lynette Richardson on 09-30-2024 Glucose [Mass/Vol] Capillary blood gluc ose measurement by glucometer (mass/volume) 70-105 [facility] Glucose [Mass/volume] in Ser um or PlasmaOrdered By: Lynette Richardson on 09-30-2024 Glucose [Mass/Vol] Glucose [Mass/volume ] in Serum or Plasma 70-100 [facility] Comment on above: ADA recommended refe rence rangeRandom Glucose Reference Range is dependent on time and content of last meal. Glucose of more than 200 mg/dL in a nonstressed, ambulatory subject supports the diagnosis of Diabetes Mellitus. Glucose [Mass/volume] in Uri ne by Test stripOrdered By: Lynette Richardson on 09-30-2024 Glucose Test strip (U) [Mass/Vol] Glucose [Mass/volume] in Urine by Test strip Normal [facility] Hematocrit Auto (Bld) [Volum e fraction]Ordered By: Lynette Richardson on 09-30-2024 Hematocrit (Bld) [Volume fraction] Hematocrit [Volume Fraction] of Blood by Automated count 38.8-50.0 [facility] Hemoglobin Calc (Bld) [Mass/ Vol]Ordered By: Lynette Richardson 09-30-2024 Hemoglobin (Bld) [Mass/Vol] Blood hemoglobin measurement by calculation (mass/volume) 12.0-17.0 [facility] Hemoglobin Test strip Ql (U) Ordered By: Lynette Richardson 09-30-2024 Hemoglobin Ql (U) Hemoglobin [Presence ] in Urine by Test strip Negative [facility] Hemoglobin [Mass/volume] in BloodOrdered By: Lynette Richardson 09-30-2024 Hemoglobin (Bld) [Mass/Vol] Hemoglobin [Mass/volume] in Blood 13.0-17.0 [facility] INR in Platelet poor plasma by Coagulation assayOrdered By: Lynette Richardson 09-30-2024 INR Coag (PPP) [Relative time] INR in Platelet poor plasma by Coagulation assay [facility] Comment on above: INR Therapeutic Rang e A) Pre- and Peroperative OAT started two weeks before surgery. NOT HIP SURGERY: 1.5 - 2.5 HIP SURGERY: 2 - 3B) Primary and secondary prevention of venous THROMBOSIS: 2 - 3C) Active venous thrombosis, pulmonary embolismand prevention of recurrent venous thrombosis: 2 - 3D) Prevention of arterial thromboembolismincluding patients with mechanical heart valves: 3 - 4.5 ISTAT ER Chem8+ Panelon 09-18 Chloride [Moles/Vol] 98.0 mmol/L Normal 98-109 [facility] Comment on above: Performed By: #### E RBMP #### [address] Point of Care testing , CO2 [Moles/Vol] 28 mmol/L Normal 23-29 [facility] Comment on above: Performed By: #### E RBMP #### [address] Point of Care testing , Creatinine [Mass/Vol] 0.9 mg/dL Normal 0.6-1.3 [facility] Comment on above: Result Comment: ER/E SD physician is notified/shown all ISTAT results. Critical values may be confirmed by laboratory testing if deemed necessary by ER attending doctor. Performed By: #### E RBMP #### [address] Point of Care testing , Glucose [Mass/Vol] 75 mg/dL Normal 70-105 [facility] Comment on above: Result Comment: PERF ORMED BY: [place] [address] PATHOLOGIST FRENCH CORD BINDER ALANNA RUDOLPH M.D. Performed By: #### E RBMP #### [address] Point of Care testing , Hemoglobin (Bld) [Mass/Vol] 15.0 g/dL Normal 12.0-17.0 [facility] Comment on above: Performed By: #### E RBMP #### [address] Point of Care testing , ISTAT Ionized Calcium 1.16 mol/L Normal 1.12-1.32 [facility] Comment on above: Performed By: #### E RBMP #### [address] Point of Care testing , Potassium [Moles/Vol] 3.6 mmol/L Normal 3.5-4.9 [facility] Comment on above: Performed By: #### E RBMP #### [facility] [address] Point of Care testing , Sodium [Moles/Vol] 138 mmol/L Normal 138-146 [facility] Comment on above: Performed By: #### E RBMP #### [facility] [address] Point of Care testing , Urea nitrogen [Mass/Vol] 16 mg/dL Normal 8-26 [facility] Comment on above: Performed By: #### E RBMP #### [facility] [address] Point of Care testing , ISTAT ER Chem8+ PanelOrdered By: Lynette Richardson on 09-30-2024 Hematocrit (Bld) [Volume fraction] 44.0 % Normal 38.0-51.0 [facility] Comment on above: Performed By: #### E RBMP #### [facility] [address] Point of Care testing , Ketones Test strip Ql (U)Ord ered By: Lynette Richardson on 09-30-2024 Ketones Ql (U) Ketones [Presence] i n Urine by Test strip Negative [facility] Leukocyte esterase [Presence ] in Urine by Test stripOrdered By: Lynette Richardson on 09-30-2024 Leukocyte esterase Test strip Ql (U) Leukocyte esterase [Presence] in Urine by Test strip Negative [facility] Leukocytes [#/volume] correc jes for nucleated erythrocytes in Blood by Automated counOrdered By: Lynette Richardson on 09-30-2024 WBC corrected for nucl RBC Auto (Bld) [#/Vol] Leukocytes [#/volume] corrected for nucleated erythrocytes in Blood by Automated coun 4.1-10.5 [facility] Lymphocytes Auto (Bld) [#/Vo l]Ordered By: Lynette Richardson on 09-30-2024 Lymphocytes (Bld) [#/Vol] Lymphocytes [#/volume] in Blood by Automated count 1.00-4.8 [facility] Lymphocytes/100 WBC Auto (Bl d)Ordered By: Lynette Richardson on 09-30-2024 Lymphocytes/100 WBC (Bld) Lymphocytes/100 leukocytes in Blood by Automated count . [facility] MCH Auto (RBC) [Entitic mass ]Ordered By: Lynette Richardson on 09-30-2024 MCH (RBC) [Entitic mass] MCH [Entitic mass] by Automated count High 27.5-35.2 [facility] MCHC Auto (RBC) [Mass/Vol]Or dered By: Lynette Richardson on 09-30-2024 MCHC (RBC) [Mass/Vol] MCHC [Mass/volume] by Automated count 32.5-35.6 [facility] MCV Auto (RBC) [Entitic vol] Ordered By: Lynette Richardson on 09-30-2024 MCV (RBC) [Entitic vol] MCV [Entitic volume] by Automated count High 83.5-101 [facility] Monocyte distribution width [Entitic volume] in Blood by AutomatedOrdered By: Lynette Richardson on 09-30-2024 Monocyte distribution width Auto (Bld) [Entitic vol] Monocyte distribution width [Entitic volume] in Blood by Automated 0.00-20.00 [facility] Monocytes Auto (Bld) [#/Vol] Ordered By: Lynette Richardson on 09-30-2024 Monocytes (Bld) [#/Vol] Automated blood monocyte count High 0.0-0.8 [facility] Monocytes/100 WBC Auto (Bld) Ordered By: Lynette Richardson on 09-30-2024 Monocytes/100 WBC (Bld) Automated monocyte % . [facility] Neutrophils Auto (Bld) [#/Vo l]Ordered By: Lynette Richardson 09-30-2024 Neutrophils (Bld) [#/Vol] Neutrophils [#/volume] in Blood by Automated count 1.8-7.7 [facility] Neutrophils/100 WBC Auto (Bl d)Ordered By: Lynette Richardson 09-30-2024 Neutrophils/100 WBC (Bld) Automated neutrophil % . [facility] Nitrite Test strip Ql (U)Ord ered By: Lynette Richardson on 09-30-2024 Nitrite Ql (U) Nitrite [Presence] i n Urine by Test strip Negative [facility] No Panel InformationOrdered By: Lynette Richardson 09-30-2024 Estimated GFR (CKD-EPI) > 60.0 mL/Min [facility] Creatinine Clearance (Chem 88.38 [facility] Nucleated erythrocytes [Pres ence] in Blood by Automated countOrdered By: Lynette Richardson on 09-30-2024 Nucleated RBC Auto Ql (Bld) Nucleated erythrocytes [Presence] in Blood by Automated count 0-0.5 [facility] Partial Thromboplastin Timeo n 09-30-2024 aPTT Coag (Bld) [Time] 30.3 s Normal 25.1-36.5 [facility] Comment on above: Result Comment: A he matocrit value greater than 55% may lead to inaccurate results in coagulation testing. Patients having hematocrit values >55% require a special collection tube for coagulation studies. Please contact the laboratory at [phone] for redraw instructions. PERFORMED BY: [facility] [address] [place] [address] PATHOLOGIST FRENCH CORD BINDER ALANNA RUDOLPH M.D. Performed By: #### G LUQUINN #### Point of Care testing , Platelet mean volume Auto (B ld) [Entitic vol]Ordered By: Lynette Richardson on 09-30-2024 Platelet mean volume (Bld) [Entitic vol] Platelet mean volume [Entitic volume] in Blood by Automated count 6.6-10.1 [facility] Platelets Auto (Bld) [#/Vol] Ordered By: Lynette Richardson 09-30-2024 Platelets (Bld) [#/Vol] Platelets [#/volume] in Blood by Automated count 150-450 [facility] Potassium (Bld) [Moles/Vol]O rdered By: Lynette Richardson 09-30-2024 Potassium [Moles/Vol] Whole blood potass ium measurement 3.5-4.9 [facility] Potassium [Moles/volume] in Serum or PlasmaOrdered By: Lynette Richardson 09-30-2024 Potassium [Moles/Vol] Potassium [Moles/v olume] in Serum or Plasma 3.5-5.1 [facility] Protein Test strip (U) [Mass /Vol]Ordered By: Lynette Richardson 09-30-2024 Protein (U) [Mass/Vol] Protein [Mass/volume] in Urine by Test strip Negative [facility] Protein [Mass/volume] in Ser um or PlasmaOrdered By: Lynette Richardson on 09-30-2024 Protein [Mass/Vol] Protein [Mass/volume ] in Serum or Plasma 6.4-8.9 [facility] Prothrombin Time INRon 09-30 INR Coag (PPP) [Relative time] 1.0 {INR} Normal [facility] Comment on above: Result Comment: INR Therapeutic Range A) Pre- and Peroperative OAT started two weeks before surgery. NOT HIP SURGERY: 1.5 - 2.5 HIP SURGERY: 2 - 3 B) Primary and secondary prevention of venous THROMBOSIS: 2 - 3 C) Active venous thrombosis, pulmonary embolism and prevention of recurrent venous thrombosis: 2 - 3 D) Prevention of arterial thromboembolism including patients with mechanical heart valves: 3 - 4.5 Performed By: #### G LULS #### Point of Care testing , PT Coag (PPP) [Time] 10.9 s Normal 9.0-12.9 [facility] Comment on above: Result Comment: A he matocrit value greater than 55% may lead to inaccurate results in coagulation testing. Patients having hematocrit values >55% require a special collection tube for coagulation studies. Please contact the laboratory at [phone] for redraw instructions. Performed By: #### G LULS #### Point of Care testing , Prothrombin time (PT)Ordered By: Lynette Richardson on 09-30-2024 PT Coag (PPP) [Time] Prothrombin time (PT) 9.0- 12.9 [facility] Comment on above: A hematocrit value g reater than 55% may lead to inaccurate results in coagulation testing. Patients having hematocrit values >55% require a special collection tube for coagulation studies. Please contact the laboratory at [phone] for redraw instructions. RBC Auto (Bld) [#/Vol]Ordere d By: Lynette Richardson on 09-30-2024 RBC (Bld) [#/Vol] Erythrocytes [#/volu me] in Blood by Automated count Low 3.90-5.60 [facility] Respiratory (Upper) Panel, P CRon 09-30-2024 Respiratory (Upper) Panel, PCR Adenovirus Not detected Bordetella parapertussis Not detected Chlamydia pneumoniae Not detected Coronavirus 229E Not detected Coronavirus HKU1 Not detected Coronavirus NL63 Not detected Coronavirus OC43 Not detected Influenza A Not detected Influenza B Not detected Human Metapneumovirus Not detected Mycoplasma pneumoniae Not detected Parainfluenza Virus 1 Not detected Parainfluenza Virus 2 Not detected Parainfluenza Virus 3 Not detected Parainfluenza Virus 4 Not detected Bordetella pertussis-ptxP Not detected Human Rhino/Enterovirus Not detected Resp. Syncytial Virus Not detected COVID-19 Detected/Not Detected Not detected Blank Space ------ FLUA TEST INCLUDES Influenza A tests for the following clinically FLUA TEST INCLUDES significant subtypes: FLUA TEST INCLUDES - Influenza A FLUA TEST INCLUDES - Influenza A H1 FLUA TEST INCLUDES - Influenza A H1 2009 FLUA TEST INCLUDES - Influenza A H3 Blank Space ------ PERFORMED BY: [place] [address] PATHOLOGIST FRENCH CORD BINDER ALANNA Aguiar [facility] Comment on above: Performed By: #### T RIG, BMP, CBC #### [facility] [address] Respiratory pathogens DNA an d RNA panel - Nasopharynx by RONEL with non-probe detectionOrdered By: Baron Ruggiero on 09-30-2024 Respiratory pathogens DNA and RNA panel RONEL+non-probe (Nph) Respiratory pathogens DNA and RNA panel - Nasopharynx by RONEL with non-probe detection [facility] Serum or plasma albumin/glob ulin mass ratioOrdered By: Lynette Richardson on 09-30-2024 Albumin/Globulin [Mass ratio] Serum or plasma albumin/globulin mass ratio [facility] Serum or plasma anion gap de terminationOrdered By: Lynette Richardson on 09-30-2024 Anion gap [Moles/Vol] Serum or plasma an ion gap determination 6.0-15.0 [facility] Sodium (Bld) [Moles/Vol]Orde red By: Lynette Richardson on 09-30-2024 Sodium [Moles/Vol] Whole blood sodium measurement 138-146 [facility] Sodium [Moles/volume] in Ser um or PlasmaOrdered By: Lynette Richardson 09-30-2024 Sodium [Moles/Vol] Sodium [Moles/volume ] in Serum or Plasma 136-145 [facility] Specific gravity Test strip (U) [Rel density]Ordered By: Lynette Richardson on 09-30-2024 Specific gravity (U) [Rel density] Specific gravity of Urine by Test strip 1.001-1.03 0 [facility] Troponin I High Sensitivityo n 09-30-2024 Troponin I High Sensitivity 18 Normal 0-20 [facility] Comment on above: Result Comment: The Troponin units of report have been changed to meet the Chest Pain Accreditation requirement, element EC5.M1l2. Troponin units are changed from pg/ml to ng/L. Also, the decimal is removed and results are in whole numbers. PERFORMED BY: [address] [address] PATHOLOGIST FRENCH CORD BINDER ALANNA RUDOLPH M.D. Performed By: #### A BG #### Point of Care testing , Troponin I.cardiac [Mass/vol ume] in Serum or Plasma by Detection limit <= 0.01 ng/Ordered By: Lynette Richardson 09-30-2024 Troponin I.cardiac DL <= 0.01 ng/mL [Mass/Vol] Troponin I.cardiac [Mass/volume] in Serum or Plasma by Detection limit <= 0.01 ng/ 0-20 [facility] Comment on above: The Troponin units o f report have been changed to meet the Chest Pain Accreditation requirement, element EC5.M1l2. Troponin units are changed from pg/ml to ng/L. Also, the decimal is removed and results are in whole numbers. Urea nitrogen (Bld) [Mass/Vo l]Ordered By: Lynette Richardson 09-30-2024 Urea nitrogen [Mass/Vol] Blood urea nitrogen (BUN) measurement in whole blood (mass/volume) 03-15 [facility] Urea nitrogen [Mass/volume] in Serum or PlasmaOrdered By: Lynette Richardson on 09-30-2024 Urea nitrogen [Mass/Vol] Urea nitrogen [Mass/volume] in Serum or Plasma 02-11 [facility] Urinalysison 09-30-2024 Appearance (U) Clear Normal Clear [facility] Comment on above: Order Comment: Name Collection Type:: Clean-Voided Midstream Performed By: #### G LULS #### Point of Care testing , Bilirubin,Urine Negative Normal Negative [facility] Comment on above: Order Comment: Name Collection Type:: Clean-Voided Midstream Performed By: #### G LULS #### Point of Care testing , Color (U) Colorless Normal Yellow [facility] Comment on above: Order Comment: Name Collection Type:: Clean-Voided Midstream Performed By: #### G LULS #### Point of Care testing , Glucose Ql (U) Normal Normal Normal [facility] Comment on above: Order Comment: Name Collection Type:: Clean-Voided Midstream Performed By: #### G LULS #### Point of Care testing , Ketones Ql (U) Negative Normal Negative [facility] Comment on above: Order Comment: Name Collection Type:: Clean-Voided Midstream Performed By: #### G LULS #### Point of Care testing , Leukocyte esterase Test strip Ql (U) Negative Normal Negative [facility] Comment on above: Order Comment: Name Collection Type:: Clean-Voided Midstream Performed By: #### G LULS #### Point of Care testing , Nitrite,Urine Negative Normal Negative [facility] Comment on above: Order Comment: Name Collection Type:: Clean-Voided Midstream Performed By: #### G LULS #### Point of Care testing , Occult Blood,Urine Negative Normal Negative [facility] Comment on above: Order Comment: Name Collection Type:: Clean-Voided Midstream Result Comment: PERF ORMED BY: [facility] [address] [place] [address] PATHOLOGIST FRENCH CORD BINDER ALANNA RUDOLPH M.D. Performed By: #### G LULS #### Point of Care testing , pH (U) 7.0 [pH] Normal 5.0-9.0 [facility] Comment on above: Order Comment: Name Collection Type:: Clean-Voided Midstream Performed By: #### G LULS #### Point of Care testing , Protein,Urine Negative Normal Negative [facility] Comment on above: Order Comment: Name Collection Type:: Clean-Voided Midstream Performed By: #### G LULS #### Point of Care testing , Specificy [place],Urine 1.012 Normal 1.001-1.03 0 [facility] Comment on above: Order Comment: Name Collection Type:: Clean-Voided Midstream Performed By: #### G LULS #### Point of Care testing , Urobilinogen,Urine Normal Normal Normal [facility] Comment on above: Order Comment: Name Collection Type:: Clean-Voided Midstream Performed By: #### G LULS #### Point of Care testing , Urobilinogen Test strip (U) [Mass/Vol]Ordered By: Lynette Richardson on 09-30-2024 Urobilinogen (U) [Mass/Vol] Urobilinogen [Mass/volume] in Urine by Test strip Normal [facility] WBC Auto (Bld) [#/Vol]Ordere d By: Lynette Richardson on 09-30-2024 WBC (Bld) [#/Vol] Leukocytes [#/volume ] in Blood by Automated count 4.1-10.5 [facility] Whole blood ionized calcium measurement (moles/volume)Ordered By: Lynette Richardson on 09-30-2024 Calcium.ionized (Bld) [Moles/Vol] Whole blood ionized calcium measurement (moles/volume) 1.12-1.32 [facility] X-ray reportOrdered By: Gus Kirk on 09-30-2024 Study report [place] [address] XRay Report Signed Patient: Michael Vaughn MR#: [id number] : 1950 Acct:[id number] Age/Sex: 74 / M ADM Date: 5 Loc: ER Room: Type: [facility] ER Attending Dr: Copies to: Lynette Richardson Do~ Ordering Provider: Lynette Richardson Do Date of Service: 09/30/24 XR/XR chest 1V portable: Neuro Symptoms/Deficit SINGLE VIEW CHEST CLINICAL HISTORY: Confusion, stroke alert COMPARISON: None FINDINGS: Elevation right hemidiaphragm. Mildly prominent cardiomediastinal silhouette. Otherwise no focal airspace opacity effusion. No pneumothorax. XR/XR chest 1V portable IMPRESSION: NO ACUTE FINDINGS Impression dictated by: Luis F Kirk M.D.09/30/2024 9:58 AM Dictation Location: RADIO-PC-26 Transcribed By: CATHERINE 09/30/24 0958 Dictated By: Luis F Kirk MD 09/30/24 0957 Signed By: 09/30/24 0958 [facility] Work Phone: XR chest 1V portableon 09-30 XR chest 1V portable [place] [address] XRay Report Signed Patient: Michael Vaughn MR#: [id number] 94 : 1950 Acct:[id number] Age/Sex: 74 / M ADM Date: 09/30/24 Loc: ER Room: Type: [facility] ER Attending Dr: Copies to: Lynette Richardson Do Ordering Provider: Lynette Richardson Do Date of Service: 09/30/24 XR/XR chest 1V portable: Neuro Symptoms/Deficit SINGLE VIEW CHEST CLINICAL HISTORY: Confusion, stroke alert COMPARISON: None FINDINGS: Elevation right hemidiaphragm. Mildly prominent cardiomediastinal silhouette. Otherwise no focal airspace opacity effusion. No pneumothorax. XR/XR chest 1V portable IMPRESSION: NO ACUTE FINDINGS Impression dictated by: Luis F Kirk M.D.09/30/2024 9:58 AM Dictation Location: RADIO-PC-26 Transcribed By: CATHERINE 09/30/24 0958 Dictated By: Luis F Kirk MD 09/30/24 0957 Signed By: 09/30/2458 Normal [facility] aPTT in Platelet poor plasma by Coagulation assayOrdered By: Lynette Richardson on 09-30-2024 aPTT Coag (PPP) [Time] Activated partial thromboplastin time (aPTT) in platelet poor plasma by coagulation a 25.1-36.5 [facility] Comment on above: A hematocrit value g reater than 55% may lead to inaccurate results in coagulation testing. Patients having hematocrit values >55% require a special collection tube for coagulation studies. Please contact the laboratory at [phone] for redraw instructions. pH Test strip (U)Ordered By: Lynette Richardson on 09-30-2024 pH (U) pH of Urine by Test strip 5.0-9.[address] [facility] [address] head/brain wo conon 09-20 CT head/brain wo con [place] [address] CT Scan Report Signed Patient: Michael Vaughn MR#: [id number] 94 : 1950 Acct:[id number] Age/Sex: 74 / M ADM Date: 09/20/24 Loc: [facility] Room: Type: [facility] Attending Dr: Florence Beltran APRN Copies to: Florence Beltran APRN Ordering Provider: Florence Beltran APRN Date of Service: 09/20/24 CT/CT head/brain wo con: S19.9XXA - Unspecified injury of neck, initial encounter CT BRAIN WITHOUT CONTRAST: CLINICAL HISTORY: Gait abnormality, ataxic gait, multiple falls COMPARISON: None TECHNIQUE: Contiguous axial unenhanced images were obtained through the brain. This CT exam was performed using one or more following dose reduction techniques: Automated exposure control, adjustment of the mA and/or kV according to patient size, or use of iterative reconstruction technique. FINDINGS: There is no evidence of midline shift, intra or extra-axial fluid collection, or hemorrhage Focal hypoattenuation left precentral gyrus hand knob image 28 possibly related to microvascular changes. Otherwise mild periventricular subcortical hypoattenuation suggestive chronic small vessel disease . There are vascular calculations Visualized intraorbital contents appear unremarkable. Visualized paranasal sinuses are clear. Left frontal scalp soft tissue swelling and subcutaneous hematoma. CT/CT head/brain wo con IMPRESSION: NO ACUTE INTRACRANIAL ABNORMALITY. CHRONIC MICROVASCULAR AND INVOLUTIONAL CHANGES. LEFT FRONTAL SCALP SOFT TISSUE SWELLING. Impression dictated by: Luis F Kirk M.D.09/20/2024 2:29 PM Dictation Location: [place] [address] Transcribed By: CATHERINE 09/20/24 1429 Dictated By: Luis F Kirk MD 09/20/24 1415 Signed By: 09/20/24 1429 Normal [facility] MR cervical spine wo conon 0 09-20-2024 MR cervical spine wo con [facility] [place] [address] [place] [address] MRI Report Signed Patient: Michael Vaughn MR#: [id number] 94 : 1950 Acct:[id number] Age/Sex: 74 / M ADM Date: 09/20/24 Loc: [facility] Room: Type: [facility] Attending Dr: Florence Beltran APRN Copies to: Florence Beltran APRN Ordering Provider: Florence Beltran APRN Date of Service: 09/20/24 MR/MR cervical spine wo con: R26.0 - Ataxic gait EXAMINATION: MRI OF THE CERVICAL SPINE WITHOUT CONTRAST CLINICAL DATA: Ataxic gait, multiple falls, weakness in arms Comparison: CT 07/16/2024 TECHNIQUE: Multiecho imaging was performed in the sagittal and axial plane without contrast administration. FINDINGS: The craniocervical junction is maintained. There are congenitally short pedicles.. There is evidence of the fusion by posterior elements C2-C4. There is increased cord signal at C5-6 likely related to long-standing compressive myelopathy and suspicious for myelomalacia.. The remainder of the cervical cord appears normal in signal morphology. There are degenerative endplate marrow changes C5-C7. Moderate disc space narrowing C5-6 and severe disc space narrowing C6-7. No prevertebral soft tissue swelling. C2-3: Facet spurring ankylosis. Mild right mild to moderate left neural foraminal narrowing. Mild central canal narrowing due to the congenitally short pedicles. C3-C4: Facet spurring/ankylosis. Mild uncovertebral spurring. Moderate neural foraminal narrowing. Mild canal narrowing due to congenitally short pedicles. C4-C5: Moderate diffuse disc ossified complex. Mild uncovertebral spurring. Bilateral facet arthropathy. Dorsal ligament of flavum buckling. Severe central canal stenosis. Moderate severe neural foraminal narrowing. C5-6: Circumferential disc osteophyte complex. Bilateral uncovertebral spurring and facet arthropathy. Severe canal narrowing. Severe left neural foraminal narrowing. Moderate severe right neural foraminal narrowing. Buckling of the ligamentum flavum C6-7: Mild multilevel disc osteophyte complex. Uncovertebral spurring facet arthropathy, mild. Moderate neural foraminal narrowing and moderate canal narrowing. C7-T1: Facet arthropathy, moderate. No significant disease central canal or neural foraminal narrowing. MR/MR cervical spine wo con IMPRESSION: Moderate severe to severe degenerative changes C4-C6 with cord flattening and increased cord signal at C5-6 to suggestive of myelomalacia. Impression dictated by: Luis F Kirk M.D.09/20/2024 12:49 PM Dictation Location: [place] [address] Transcribed By: [facility] 09/20/24 1249 Dictated By: Luis F Kirk MD 09/20/24 1237 Signed By: 09/20/24 1249 Normal [facility] Magnetic resonance imaging r eportOrdered By: Luis F Kirk on 09-20-2024 Study report [facility] [place] [address] [place] [address] MRI Report Signed Patient: Michael Vaughn MR#: [id number] : 1950 Acct:[id number] Age/Sex: 74 / M ADM Date: 5 Loc: [facility] Room: Type: [facility] Attending Dr: Florence Beltran APRN Copies to: Florence Beltran APRN~ Ordering Provider: Florence Beltran APRN Date of Service: 09/20/24 MR/MR cervical spine wo con: R26.0 - Ataxic gait EXAMINATION: MRI OF THE CERVICAL SPINE WITHOUT CONTRAST CLINICAL DATA: Ataxic gait, multiple falls, weakness in arms Comparison: CT 07/16/2024 TECHNIQUE: Multiecho imaging was performed in the sagittal and axial plane without contrast administration. FINDINGS: The craniocervical junction is maintained. There are congenitally short pedicles.. There is evidence of the fusion by posterior elements C2-C4. There is increased cord signal at C5-6 likely related to long-standing compressive myelopathy and suspicious for myelomalacia.. The remainder of the cervical cordappears normal in signal morphology. There are degenerative endplate marrow changes C5-C7. Moderate disc space narrowing C5-6 and severe disc space narrowing C6-7. No prevertebral soft tissue swelling. C2-3: Facet spurring ankylosis. Mild right mild to moderate left neural foraminal narrowing. Mild central canal narrowing due to the congenitally shortpedicles. C3-C4: Facet spurring/ankylosis. Mild uncovertebral spurring. Moderate neural foraminal narrowing. Mild canal narrowing due to congenitally short pedicles. C4-C5: Moderate diffuse disc ossified complex. Mild uncovertebral spurring. Bilateral facet arthropathy. Dorsal ligament of flavum buckling. Severe central canal stenosis. Moderate severe neural foraminal narrowing. C5-6: Circumferential disc osteophyte complex. Bilateral uncovertebral spurringand facet arthropathy. Severe canal narrowing. Severe left neural foraminal narrowing. Moderate severe right neural foraminal narrowing. Buckling of the ligamentum flavum C6-7: Mild multilevel disc osteophyte complex. Uncovertebral spurring facet arthropathy, mild. Moderate neural foraminal narrowing and moderate canal narrowing. C7-T1: Facet arthropathy, moderate. No significant disease central canal or neural foraminal narrowing. MR/MR cervical spine wo con IMPRESSION: Moderate severe to severe degenerative changes C4-C6 with cord flattening and increased cord signal at C5-6 to suggestive of myelomalacia. Impression dictated by: Luis F Kirk M.D.09/20/2024 12:49 PM Dictation Location: [place] [address] Transcribed By: [facility] 09/20/24 1244 Dictated By: Luis F Kirk MD 09/20/24 1237 Signed By: 09/20/24 1247 [facility] Work Phone: Albumin [Mass/volume] in Ser um or Plasma by Bromocresol green (BCG) dye binding methoOrdered By: Kelton Morin on 09-07-2024 Albumin BCG dye [Mass/Vol] Albumin [Mass/volume] in Serum or Plasma by Bromocresol green (BCG) dye binding metho 3.5-5.7 [facility] Calcium [Mass/volume] in Ser um or PlasmaOrdered By: Kelton Morin on 09-07-2024 Calcium [Mass/Vol] Calcium [Mass/volume ] in Serum or Plasma 8.6-10.3 [facility] Carbon dioxide, total [Moles /volume] in Serum or PlasmaOrdered By: Kelton Morin on 09-07-2024 CO2 [Moles/Vol] Carbon dioxide, tota l [Moles/volume] in Serum or Plasma High 21.0-31.0 [facility] Chloride [Moles/volume] in S bere or PlasmaOrdered By: Kelton Morin on 09-07-2024 Chloride [Moles/Vol] Chloride [Moles/vol ume] in Serum or Plasma Low 98-107 [facility] Creatinine [Mass/volume] in Serum or PlasmaOrdered By: Kelton Morin on 09-07-2024 Creatinine [Mass/Vol] Creatinine [Mass/v olume] in Serum or Plasma 0.70-1.30 [facility] Glucose [Mass/volume] in Ser um or PlasmaOrdered By: Kelton Morin on 09-07-2024 Glucose [Mass/Vol] Glucose [Mass/volume ] in Serum or Plasma 70-100 [facility] Comment on above: ADA recommended refe rence rangeRandom Glucose Reference Range is dependent on time and content of last meal. Glucose of more than 200 mg/dL in a nonstressed, ambulatory subject supports the diagnosis of Diabetes Mellitus. No Panel InformationOrdered By: Kelton Morin on 09-07-2024 Urine Osmolality 660 mosm 250-900 [facility] Estimated GFR (CKD-EPI) > 60.0 mL/Min [facility] Creatinine Clearance (Chem N/A [facility] Osmolality, Urineon 09-07-19 25 Osmolality, Urine 660 mosm Normal 250-900 [facility] Comment on above: Result Comment: PERF ORMED BY: [place] [address] PATHOLOGIST FRENCH CORD BINDER ALANNA RUDOLPH M.D. Performed By: #### T RIG BMP, CBC #### [facility] [address] Phosphate [Mass/volume] in S bere or PlasmaOrdered By: Kelton Morin on 09-07-2024 Phosphate [Mass/Vol] Phosphate [Mass/vol ume] in Serum or Plasma 2.5-4.5 [facility] Potassium [Moles/volume] in Serum or PlasmaOrdered By: Kelton Morin on 09-07-2024 Potassium [Moles/Vol] Potassium [Moles/v olume] in Serum or Plasma 3.5-5.1 [facility] Renal Function Panelon 09-07 Albumin [Mass/Vol] 4.4 g/dL Normal 3.5-5.7 [facility] Comment on above: Result Comment: PERF ORMED BY: [place] [address] PATHOLOGIST FRENCH CORD BINDER ALANNA RUDOLPH M.D. Performed By: #### T LEXI BMP, CBC #### [address] Anion gap [Moles/Vol] 9.5 mmol/L Normal 6.0-15.0 [facility] Comment on above: Performed By: #### T RIG BMP, CBC #### [facility] [address] [place] [id number] [place] Calcium [Mass/Vol] 9.2 mg/dL Normal 8.6-10.3 [facility] Comment on above: Performed By: #### T RIG BMP, CBC #### [facility] [address] [place] [id number] [place] Chloride [Moles/Vol] 92 mmol/L Low 98-107 [facility] Comment on above: Performed By: #### T RIG BMP, CBC #### [facility] [address] [place] [address] [place] CO2 [Moles/Vol] 34.8 mmol/L High 21.0-31.0 [facility] Comment on above: Performed By: #### T JOSEFINA ELLIOTT, CBC #### [facility] [address] [place] [address] [place] Creatinine [Mass/Vol] 0.81 mg/dL Normal 0.70-1.30 [facility] Comment on above: Performed By: #### T JOSEFINA ELLIOTT, CBC #### [facility] [address] [place] [address] [place] GFR/1.73 sq M.predicted MDRD (S/P/Bld) [Vol rate/Area] mL/min/{1.73_m2} Normal [facility] Comment on above: Performed By: #### T JOSEFINA ELLIOTT, CBC #### [place] [address] [place] Glucose [Mass/Vol] 80 mg/dL Normal 70-100 [facility] Comment on above: Result Comment: [facility] Glucose Reference Range is dependent on time and content of last meal. Glucose of more than 200 mg/dL in a nonstressed, ambulatory subject supports the diagnosis of Diabetes Mellitus. ADA recommended reference range Performed By: #### T JOSEFINA ELLIOTT, CBC #### [place] [address] [place] Phosphate [Mass/Vol] 3.9 mg/dL Normal 2.5-4.5 [facility] Comment on above: Performed By: #### T JOSEFINA ELLIOTT, CBC #### [place] [address] [place] Potassium [Moles/Vol] 4.3 mmol/L Normal 3.5-5.1 [facility] Comment on above: Performed By: #### T JOSEFINA ELLIOTT, CBC #### [place] [address] [place] Sodium [Moles/Vol] 132 mmol/L Low 136-145 [facility] Comment on above: Performed By: #### T JOSEFINA ELLIOTT, CBC #### [address] Urea nitrogen [Mass/Vol] 14 mg/dL Normal 02-11 [facility] Comment on above: Performed By: #### T JOSEFINA ELLIOTT, CBC #### [address] Serum or plasma anion gap de terminationOrdered By: Kelton Morin on 09-07-2024 Anion gap [Moles/Vol] Serum or plasma an ion gap determination 6.0-15.0 [facility] Sodium [Moles/volume] in Ser um or PlasmaOrdered By: Kelton Morin on 09-07-2024 Sodium [Moles/Vol] Sodium [Moles/volume ] in Serum or Plasma Low 136-145 [facility] Sodium [Moles/volume] in Uri neOrdered By: Kelton Morin on 09-07-2024 Sodium (U) [Moles/Vol] Sodium [Moles/volume] in Urine [facility] Comment on above: No reference range e stablished Sodium, Urine (Random)on Sodium (U) [Moles/Vol] 134 mmol/L Normal [facility] Comment on above: Result Comment: No r eference range established PERFORMED BY: [place] [address] PATHOLOGIST FRENCH CORD BINDER ALANNA RUDOLPH M.D. Performed By: #### T JOSEFINA ELLIOTT CBC #### [address] Urea nitrogen [Mass/volume] in Serum or PlasmaOrdered By: Kelton Morin on 09-07-2024 Urea nitrogen [Mass/Vol] Urea nitrogen [Mass/volume] in Serum or Plasma 7- [facility] XR Knee - right 1 or 2 Views on 08-11-2024 [facility] Result: AP and lateral of right knee showed surgical position and alignment of prosthetic components without evidence of loosening or wear to the femoral, tibial, or patellar components. The alignment appeared to be anatomic. There was no evidence of accelerated or asymmetric wear to the patellar button or tibial tray. There was no evidence of fracture and/or dislocation. Impression: Unremarkable right total knee arthroplasty. [facility] XR Knee - right 1 or 2 Views Ordered By: Jr. Lunsford on 08-11-2024 [facility] [employer] Work Phone: X-ray reportOrdered By: Alberto Stevenson on 08-10-2024 Study report [facility] [address] [place] [address] XRay Report Signed Patient: Michael Vaughn MR#: [id number] : 1950 Acct:[id number] Age/Sex: 74 / M ADM Date: 5 Loc: [facility] Room: Type: [facility] Attending Dr: Bridger Douglas DO Copies to: Bridger Douglas DO~ Ordering Provider: Bridger Douglas DO Date of Service: 08/10/24 XR/XR hip LT min 2V(w/wo pelvis)*: M25.552 - Pain in left hip LEFT HIP - 2 views: CLINICAL HISTORY: Low back pain that radiates to left hip for months. COMPARISON: None FINDINGS: Moderate degenerative changes of both hips without acute bony process. Additional degenerative changes are seen involving the visualized lower lumbar spine and SI joints. XR/XR hip LT min 2V(w/wo pelvis)* IMPRESSION: MODERATE DEGENERATIVE CHANGES OF THE HIPS WITHOUT ACUTE BONY PROCESS.. Impression dictated by: Sea Stevenson Jr., D.O.08/10/2024 1:48 PM Dictation Location: [place] [address] Transcribed By: [facility] 08/10/24 1348 Dictated By: Sea Stevenson Jr, DO 08/10/24 1347 Signed By: 08/10/24 1348 [facility] XR hip LT min 2V(w/wo pelvis )*on 08-10-2024 XR hip LT min 2V(w/wo pelvis)* [facility] [address] [place] [address] XRay Report Signed Patient: Michael Vaughn MR#: [id number] 94 : 1950 Acct:[id number] Age/Sex: 74 / M ADM Date: 08/10/24 Loc: [facility] Room: Type: [facility] Attending Dr: Bridger Douglas DO Copies to: Bridger Douglas DO Ordering Provider: Bridger Douglas DO Date of Service: 08/10/24 XR/XR hip LT min 2V(w/wo pelvis)*: M25.552 - Pain in left hip LEFT HIP - 2 views: CLINICAL HISTORY: Low back pain that radiates to left hip for months. COMPARISON: None FINDINGS: Moderate degenerative changes of both hips without acute bony process. Additional degenerative changes are seen involving the visualized lower lumbar spine and SI joints. XR/XR hip LT min 2V(w/wo pelvis)* IMPRESSION: MODERATE DEGENERATIVE CHANGES OF THE HIPS WITHOUT ACUTE BONY PROCESS.. Impression dictated by: Sea Stevenson Jr., D.O.08/10/2024 1:48 PM Dictation Location: [place] [address] Transcribed By: [facility] 08/10/24 1348 Dictated By: Sea Stevenson Jr, DO 08/10/24 1347 Signed By: 08/10/24 1348 Normal [facility] XR Knee - right 1 or 2 Views on 08-02-2024 Radiology Study observation (narrative) [facility] SODIUM 07-30-2024 Sodium [Moles/Vol] 122 mmol/L Low 135-146 [facility] Comment on above: Order Comment: FASTI NG:UNKNOWN FASTING: UNKNOWN Performed By: #### 8 36 #### [facility] [address], [address] [place] [phone] Wool Scourer: Deejay Van MD LIPID PANEL, [facility] Cholesterol [Mass/Vol] 139 mg/dL Normal <200 [facility] Comment on above: Order Comment: FASTI NG:UNKNOWN FASTING: UNKNOWN Performed By: #### 5 803, 953, 8396 #### [facility] [address] [place] [address], [address] [place] [phone] Wool Scourer: Deejay Van MD Cholesterol in HDL [Mass/Vol] 83 mg/dL Normal > OR = 40 [facility] Comment on above: Order Comment: FASTI NG:UNKNOWN FASTING: UNKNOWN Performed By: #### 5 833, 839, 8380 #### [facility] [address], [address] [place] [address] Wool Scourer: Deejay Van MD Cholesterol in LDL [Mass/Vol] 41 mg/dL Normal [facility] Comment on above: Order Comment: FASTI NG:UNKNOWN FASTING: UNKNOWN Result Comment: Refe rence range: <100 Desirable range <100 mg/dL for primary prevention; <70 mg/dL for patients with CHD or diabetic patients with > or = 2 CHD risk factors. LDL-C is now calculated using the Claudia calculation, which is a validated novel method providing better accuracy than the Friedewald equation in the estimation of LDL-C. Michael SS et al. PAT. 2013;310(19): 5467-5252 (http://education.SeamBLiSS.Pingwyn/faq/MEQ161) Performed By: #### 5 002, 350, 3070 #### [facility] [address], [address] [place] [address] Wool Scourer: Deejay Van MD Cholesterol.total/Cho lesterol in HDL [Mass ratio] 1.7 {ratio} Normal <5.0 [facility] Comment on above: Order Comment: FASTI NG:UNKNOWN FASTING: UNKNOWN Performed By: #### 5 240, 899, 8530 #### [facility] [address], [address] [place] [address] Wool Scourer: Deejay Van MD NON HDL CHOLESTEROL 56 mg/dL (calc) Normal <130 [facility] Comment on above: Order Comment: FASTI NG:UNKNOWN FASTING: UNKNOWN Result Comment: For patients with diabetes plus 1 major ASCVD risk factor, treating to a non-HDL-C goal of <100 mg/dL (LDL-C of <70 mg/dL) is considered a therapeutic option. Performed By: #### 5 273, 871, 2090 #### [facility] [address], [address] [place] [address] Wool Scourer: Deejay Van MD Triglyceride [Mass/Vol] 69 mg/dL Normal <150 [facility] Comment on above: Order Comment: FASTI NG:UNKNOWN FASTING: UNKNOWN Performed By: #### 5 363, 899, 7600 #### [facility] [place] [address] [employer] Scourer: Deejay Van MD PSA, TOTALon 07-23-2024 PSA, TOTAL 0.34 ng/mL Normal < OR = 4.00 [facility] Comment on above: Result Comment: The total PSA value from this assay system is standardized against the WHO standard. The test result will be approximately 20% lower when compared to the equimolar-standardized total PSA (Marlene Janie). Comparison of serial PSA results should be interpreted with this fact in mind. This test was performed using the Siemens chemiluminescent method. Values obtained from different assay methods cannot be used interchangeably. PSA levels, regardless of value, should not be interpreted as absolute evidence of the presence or absence of disease. Performed By: #### 5 363, 899, 3280 #### [facility] [address], [address] [place] [address] Wool Scourer: Deejay Van MD TSHon 07-23-2024 TSH Qn 3.22 m[IU]/L Normal 0.40-4.50 [facility] Comment on above: Performed By: #### 5 363, 899, 0250 #### [facility] [place] [address] [employer] Scourer: Deejay Van MD BASIC METABOLIC PANELon 12-3 Calcium [Mass/Vol] 9.0 mg/dL Normal 8.6-10.3 [facility] Comment on above: Order Comment: FASTI NG:YES FASTING: YES Performed By: #### 1 0165 #### [facility] [place] [address] [employer] Scourer: Deejay Van MD Chloride [Moles/Vol] 83 mmol/L Low 98-110 [facility] Comment on above: Order Comment: FASTI NG:YES FASTING: YES Result Comment: Veri fied by repeat analysis. Performed By: #### 1 0165 #### [facility] [address] [place] [address] Wool Scourer: Deejay Van MD CO2 [Moles/Vol] 32 mmol/L Normal 20-32 [facility] Comment on above: Order Comment: FASTI NG:YES FASTING: YES Performed By: #### 1 0165 #### [facility] [place] [address] [employer] Scourer: Deejay Van MD Creatinine [Mass/Vol] 0.66 mg/dL Low 0.70-1.28 [facility] Comment on above: Order Comment: FASTI NG:YES FASTING: YES Performed By: #### 1 0165 #### [facility] [place] [address] [employer] Scourer: Deejay Van MD GFR/1.73 sq M.predicted among non-blacks MDRD (S/P/Bld) [Vol rate/Area] 100 mL/min/{1.73_m2} Normal > OR = 60 [facility] Comment on above: Order Comment: FASTI NG:YES FASTING: YES Performed By: #### 1 0165 #### [facility] [place] [address] Wool Scourer: Deejay Van MD Glucose [Mass/Vol] 88 mg/dL Normal 65-99 [email or web address] Comment on above: Order Comment: FASTI NG:YES FASTING: YES Result Comment: Fasting reference interval Performed By: #### 1 0165 #### [facility] [place] [address] Wool Scourer: Deejay Van MD Potassium [Moles/Vol] 4.0 mmol/L Normal 3.5-5.3 [employer] Comment on above: Order Comment: FASTI NG:YES FASTING: YES Performed By: #### 1 0165 #### [facility] [place] [address] Wool Scourer: Deejay Van MD Sodium [Moles/Vol] 121 mmol/L Low 135-146 [email or web address] Comment on above: Order Comment: FASTI NG:YES FASTING: YES Performed By: #### 1 0165 #### [facility] [address], [address] [place] [address] Wool Scourer: Deejay Van MD Urea nitrogen [Mass/Vol] 8 mg/dL Normal 7-25 [facility] Comment on above: Order Comment: FASTI NG:YES FASTING: YES Performed By: #### 1 0165 #### [facility] [address], [address] [place] [address] Wool Scourer: Deejay Van MD Urea nitrogen/Creatinine [Mass ratio] 12 mg/mg Normal 6-22 [facility] Comment on above: Order Comment: FASTI NG:YES FASTING: YES Performed By: #### 1 0165 #### [facility] [address], [address] [place] [address] Wool Scourer: Deejay Van MD XR Knee - right 1 or 2 Views on 03-16-2024 Imaging Result: March 16, 2024 x-rays AP and lateral of the right knee demonstrate right total knee replacement in good position alignment without signs of loosening fracture or failure. Impression: Stable appearance of right total knee replacement Ever Day D.O. [facility] [employer] [facility] [employer] Radiology Study observation (narrative) [employer] XR KNEE RT 1 OR 2 VWSon 01-18 XR KNEE RT 1 OR 2 VWS XR KNEE RT 1 OR 2 VWS XR KNEE RT 1 OR 2 VWS INDICATION: Post-operative evaluation COMPARISON: None IMPRESSION: 1. Right knee arthroplasty in anatomic alignment and without acute hardware complication. 2. Presumed postoperative soft tissue/intra-articular swelling and emphysema Finalized by Nilson Paniagua MD on 02/04/2024 10:41 AM Normal [facility] ECG 12 leadon 01-09-2024 TRACEMASTERVUE [facility] [employer] [facility] BASIC METABOLIC PANLon 01-07 Anion gap [Moles/Vol] 9 mmol/L Normal 5-15 [facility] Comment on above: Performed By: #### C BCA, BMP #### [facility] ([id number]) [address] [place] [address] Calcium [Mass/Vol] 9.0 mg/dL Normal 8.5-10.5 [facility] Comment on above: Performed By: #### C LÁZARO, BMP #### [facility] ([id number]) [address], [address] [place] [address] Chloride [Moles/Vol] 91 mmol/L Low 98-109 [facility] Comment on above: Performed By: #### C LÁZARO, BMP #### [facility] ([id number]) [address], [address] [place] [address] CO2 [Moles/Vol] 29 mmol/L Normal 22-32 [facility] Comment on above: Performed By: #### C LÁZARO, BMP #### [facility] ([id number]) [address], [address] [place] [address] Creatinine [Mass/Vol] 0.70 mg/dL Normal 0.60-1.30 [facility] Comment on above: Result Comment: METH OD TRACEABLE TO IDMS STANDARD Performed By: #### C LÁZARO, BMP #### [facility] ([id number]) [address], [address] [place] [address] eGFR (CKD-EPI) NON-RACE DEPENDENT >90 Normal >59 [facility] Comment on above: Result Comment: Reported eGFR is based on the CKD-EPI 2020 equation that does not use a race coefficient. Performed By: #### C LÁZARO, BMP #### [facility] ([id number]) [address], [address] [place] [address] Glucose [Mass/Vol] 84 mg/dL Normal 65-99 [facility] Comment on above: Performed By: #### Bill SESAY, BMP #### [facility] ([id number]) [address], [address] [place] [address] Potassium [Moles/Vol] 3.9 mmol/L Normal 3.5-5.0 [facility] Comment on above: Performed By: #### C BCA, BMP #### [facility] ([id number]) [address], [address] [place] [address] Sodium [Moles/Vol] 129 mmol/L Low 134-146 [facility] Comment on above: Performed By: #### C BCA, BMP #### [facility] ([id number]) [address], [address] [place] [address] Urea nitrogen [Mass/Vol] 10 mg/dL Normal 5-27 [facility] Comment on above: Performed By: #### C BCA, BMP #### [facility] ([id number]) [address], [address] [place] [address] Basic Metabolic Panelon 2 Anion gap [Moles/Vol] 9 mmol/L 5 - 15 mmol/L [facility] Calcium [Mass/Vol] 9.0 mg/dL 8.5 - 10. 5 mg/dL [facility] Chloride [Moles/Vol] 91 mmol/L Low 98 - 10 9 mmol/L [facility] CO2 [Moles/Vol] 29 mmol/L 22 - 32 mmol/L [facility] Creatinine [Mass/Vol] 0.70 mg/dL 0.60 - 1.30 mg/dL [facility] Comment on above: METHOD TRACEABLE TO IDMS STANDARD eGFR (CKD-EPI)non-race dependent - PINF [facility] Comment on above: Reported eGFR is based on the CKD-EPI 2020 equation that does not use a race coefficient. Glucose [Mass/Vol] 84 mg/dL 65 - 99 mg/dL [facility] Interpretation and review of laboratory results Abnormal [facility] Potassium [Moles/Vol] 3.9 mmol/L 3.5 - 5.0 mmol/L [facility] Sodium [Moles/Vol] 129 mmol/L Low 134 - 146 mmol/L [facility] Urea nitrogen [Mass/Vol] 10 mg/dL 5 - 27 mg/dL [facility] CBC AND AUTO DIFFon 01-08-20 ABSOLUTE BASOPHIL 0.1 X10E9/L Normal 0.0-0.2 [facility] Comment on above: Performed By: #### Bill SESAY, BMP #### [facility] ([id number]) [address], [address] [place] [address] ABSOLUTE NEUTROPHIL 3.2 X10E9/L Normal 1.5-6.6 [facility] Comment on above: Performed By: #### C LÁZARO, BMP #### [facility] ([id number]) [address], [address] [place] [address] Basophils/100 WBC (Bld) 1.0 % Normal [facility] Comment on above: Performed By: #### Bill SESAY, BMP #### [facility] ([id number]) [address], [address] [place] [address] Eosinophils (Bld) [#/Vol] 0.2 10*3/uL Normal 0.0-0.4 [facility] Comment on above: Performed By: #### Bill SESAY, BMP #### [facility] ([id number]) [address], [address] [place] [address] Eosinophils/100 WBC (Bld) 4.1 % Normal [facility] Comment on above: Performed By: #### Bill SESAY, BMP #### [facility] ([id number]) [address], [address] [place] [address] Erythrocyte distribution width (RBC) [Ratio] 14.5 % Normal 11.5-15.0 [facility] Comment on above: Performed By: #### Bill SESAY, BMP #### [facility] ([id number]) [address], [address] [place] [address] Hematocrit (Bld) [Volume fraction] 43.0 % Normal 39-49 [facility] Comment on above: Performed By: #### Bill SESAY, BMP #### [facility] ([id number]) [address], [address] [place] [address] Hemoglobin (Bld) [Mass/Vol] 14.9 g/dL Normal 13.0-17.0 [facility] Comment on above: Performed By: #### C LÁZARO, BMP #### [facility] ([id number]) [address], [address] [place] [address] Lymphocytes (Bld) [#/Vol] 1.5 10*3/uL Normal 1.0-3.5 [facility] Comment on above: Performed By: #### C LÁZARO, BMP #### [facility] ([id number]) [address] [place] [address] Lymphocytes/100 WBC (Bld) 26.2 % Normal [facility] Comment on above: Performed By: #### C LÁZARO, BMP #### [facility] ([id number]) [address], [address] [place] [address] MCH (RBC) [Entitic mass] 33.8 pg Normal 27-34 [facility] Comment on above: Performed By: #### C LÁZARO, BMP #### [facility] ([id number]) [address], [address] [place] [address] MCHC (RBC) [Mass/Vol] 34.5 g/dL Normal 32-36 [facility] Comment on above: Performed By: #### C LÁZARO, BMP #### [facility] ([id number]) [address], [address] [place] [address] MCV (RBC) [Entitic vol] 98 fL Normal 80-100 [facility] Comment on above: Performed By: #### C LÁZARO, BMP #### [facility] ([id number]) [address], [address] [place] [address] Monocytes (Bld) [#/Vol] 0.8 10*3/uL Normal 0-0.9 [facility] Comment on above: Performed By: #### C BCA, BMP #### [facility] ([id number]) [address], [address] [place] [address] Monocytes/100 WBC (Bld) 14.1 % Normal [facility] Comment on above: Performed By: #### C BCA, BMP #### [facility] ([id number]) [address], [address] [place] [address] Neutrophils/100 WBC (Bld) 54.6 % Normal [facility] Comment on above: Performed By: #### C LÁZARO, BMP #### [facility] ([id number]) [address], [address] [place] [address] Platelet mean volume (Bld) [Entitic vol] 8.0 fL Normal 7-12 [facility] Comment on above: Performed By: #### C BCA, BMP #### [facility] ([id number]) [address] [place] [address] Platelets (Bld) [#/Vol] 268 10*3/uL Normal 150-450 [facility] Comment on above: Performed By: #### C BCA, BMP #### [facility] ([id number]) [address] [place] [address] RBC COUNT 4.39 X10E12/L Normal 4.10-5.70 [facility] Comment on above: Performed By: #### C BCA, BMP #### [facility] ([id number]) [address], [address] [place] [address] WBC (Bld) [#/Vol] 5.8 10*3/uL Normal 4.0-11.0 [facility] Comment on above: Performed By: #### C BCA, BMP #### [facility] ([id number]) [address], [address] [place] [address] CBC auto differentialon 12-20 Basophils (Bld) [#/Vol] 0.1 10*3/uL [facility] Basophils/100 WBC (Bld) 1.0 % [facility] Eosinophils (Bld) [#/Vol] 0.2 10*3/uL [facility] Eosinophils/100 WBC (Bld) 4.1 % [facility] Erythrocyte distribution width (RBC) [Ratio] 14.5 % 11.5 - 15.0 % [facility] Hematocrit (Bld) [Volume fraction] 43.0 % 39 - 49 % [facility] Hemoglobin (Bld) [Mass/Vol] 14.9 g/dL 13.0 - 17.0 g/dL [facility] Lymphocytes (Bld) [#/Vol] 1.5 10*3/uL [facility] Lymphocytes/100 WBC (Bld) 26.2 % [facility] MCH (RBC) [Entitic mass] 33.8 pg 27 - 34 pg [facility] MCHC (RBC) [Mass/Vol] 34.5 g/dL 32 - 3 6 g/dL [facility] MCV (RBC) [Entitic vol] 98 fL 80 - 100 fL [facility] Monocytes (Bld) [#/Vol] 0.8 10*3/uL [facility] Monocytes/100 WBC (Bld) 14.1 % [facility] Neutrophils (Bld) [#/Vol] 3.2 10*3/uL [facility] Neutrophils/100 WBC (Bld) 54.6 % [facility] Platelet mean volume (Bld) [Entitic vol] 8.0 fL 7 - 12 fL [facility] Platelets (Bld) [#/Vol] 268 10*3/uL [facility] RBC (Bld) [#/Vol] 4.39 10*6/uL [facility] WBC corrected for nucl RBC Auto (Bld) [#/Vol] 5.8 [facility] XR Elbow - right 2 [employer]son 0 09-01-2023 Imaging Result: September 01, 2023 x-rays AP and lateral of the right elbow demonstrate calcification at the proximal portion of the olecranon with osteophyte formation around the elbow consistent with arthritis. No fractures are noted. Impression: Osteoarthritis of the right elbow Ever Day D.O. [facility] Radiology Study observation (narrative) [facility] XR Elbow - right 2 [employer] red By: Edmundo Day on 09-01-2023 [facility] [employer] Work Phone: CREATININEon 04-26-2020 Creatinine [Mass/Vol] 0.87 mg/dL Normal 0.66-1.[address] [facility] Comment on above: Performed By: #### C FRANSISCO #### [facility] [address] [place] [address] Courtney Claudio Creatinine [Mass/Vol] mg/dL Normal >=60 [facility] Comment on above: Performed By: #### C FRANSISCO #### [facility] [address] [place] [address] Courtney Claudio COVID-19 PCRon 02-26-2020 SARS-CoV-2, RONEL Not Detected Normal Not Detected [facility] Comment on above: Result Comment: This test was developed and its performance characteristics determined by [employer]. This test has not been FDA cleared [...] assay. Performed By: #### C VDPCR #### [facility] [address] [place] [address] Courtney Claudio Vital Signs Date Time Vital Sign Value Performing Clinician Facility 11-30-2024 11:09-0400 Body height 165.1 cm Rolan Monaco [employer] Work Phone: [facility] 11-30-2024 11:09-0400 Body mass index (BMI) [Ratio] 31.78 kg/m2 Rolan Monaco [employer] Work Phone: [facility] 11-30-2024 11:09-0400 Body weight 86.64 kg Rolan Monaco [employer] Work Phone: [facility] 11-30-2024 11:09-0400 Diastolic blood pressure 110 mm[Hg] Rolan Monaco [employer] Work Phone: [facility] 11-30-2024 11:09-0400 Heart rate 54 /min Rolan Monaco [employer] Work Phone: [facility] 11-30-2024 11:09-0400 Respiratory rate 17 /min Rolan Monaco [employer] Work Phone: [facility] 11-30-2024 11:09-0400 SaO2% (BldA) [Mass fraction] 99 % Rolan Monaco [employer] Work Phone: [facility] 11-30-2024 11:09-0400 Systolic blood pressure 184 mm[Hg] Rloan Monaco [employer] Work Phone: [facility] 11-15-2024 11:43-0400 Body temperature 98.9 [degF] Rolan Monaco [employer] Work Phone: [facility] 11-15-2024 11:43-0400 Diastolic blood pressure 80 mm[Hg] Rolan Monaco [employer] Work Phone: [facility] 11-15-2024 11:43-0400 Heart rate 57 /min Rolan Monaco [employer] Work Phone: [facility] 11-15-2024 11:43-0400 Respiratory rate 20 /min Rolan Monaco [employer] Work Phone: [facility] 11-15-2024 11:43-0400 SaO2% (BldA) [Mass fraction] 96 % Rolan Monaco [employer] Work Phone: [facility] 11-15-2024 11:43-0400 Systolic blood pressure 164 mm[Hg] Rolan Monaco [employer] Work Phone: [facility] 11-15-2024 11:00-0400 Body height 165.1 cm Rolan Monaco [employer] Work Phone: 7(824)[phone] [place] [address] 11-14-2024 06:00-0400 Body weight 92.7 kg Rolan Monaco [employer] Work Phone: 4(205)070-453968 [address] 11-12-2024 12:38-0400 Body height 165.1 cm Rolan Monaco [employer] Work Phone: 2(736)[phone] [address] 11-12-2024 11:00-0400 Body temperature 98.3 [degF] Rolan Monaco [employer] Work Phone: 3(381)[phone] [place] [address] 11-12-2024 11:00-0400 Diastolic blood pressure 68 mm[Hg] Rolan Monaco [employer] Work Phone: 9(969)[phone] [place] [address] 11-12-2024 11:00-0400 Heart rate 60 /min Rolan Monaco [employer] Work Phone: [facility] 11-12-2024 11:00-0400 Respiratory rate 16 /min Rolan Monaco [employer] Work Phone: [facility] 11-12-2024 11:00-0400 SaO2% (BldA) [Mass fraction] 93 % Rolan Monaco [employer] Work Phone: [facility] 11-12-2024 11:00-0400 Systolic blood pressure 119 mm[Hg] Rolan Monaco [employer] Work Phone: [facility] 11-12-2024 05:59-0400 Body weight 84.2 kg Rolan Monaco [employer] Work Phone: [facility] 11-11-2024 11:00-0400 Inhaled oxygen flow rate 2 L/min Rolan [place] [employer] Work Phone: [facility] 11-10-2024 10:15-0400 Inhaled oxygen concentration 40 % Rolan Carlos Enrique [employer] Work Phone: [facility] 10-28-2024 16:12-0400 Body height 170.2 cm Rolan [place] [employer] Work Phone: [facility] 10-28-2024 16:12-0400 Body mass index (BMI) [Ratio] 30.01 kg/m2 Rolan [place] [employer] Work Phone: [facility] 10-28-2024 16:12-0400 Body weight 86.91 kg Rolan [place] [employer] Work Phone: [facility] 10-28-2024 16:12-0400 Diastolic blood pressure 84 mm[Hg] Rolan Bustosvely [employer] Work Phone: [facility] 10-28-2024 16:12-0400 Heart rate 57 /min Rolan Carlos Enrique [employer] Work Phone: [facility] 10-28-2024 16:12-0400 Respiratory rate 16 /min Rolan [place] [employer] Work Phone: [facility] 10-28-2024 16:12-0400 SaO2% (BldA) [Mass fraction] 97 % Rolan [place] [employer] Work Phone: [facility] 10-28-2024 16:12-0400 Systolic blood pressure 162 mm[Hg] Rolan [place] [employer] Work Phone: [facility] 10-21-2024 16:13-0400 Body height 170.2 cm Rolan [place] [employer] Work Phone: [facility] 10-21-2024 16:13-0400 Body mass index (BMI) [Ratio] 29.66 kg/m2 Rolan Bustosvely [employer] Work Phone: [facility] 10-21-2024 16:13-0400 Body weight 85.91 kg Rolan Bustosvely [employer] Work Phone: [facility] 10-21-2024 16:13-0400 Diastolic blood pressure 92 mm[Hg] Rolan Carlos Enrique [employer] Work Phone: [facility] 10-21-2024 16:13-0400 Heart rate 62 /min Rolan [place] [employer] Work Phone: [facility] 10-21-2024 16:13-0400 Respiratory rate 16 /min Rolan Carlos Enrique [employer] Work Phone: [facility] 10-21-2024 16:13-0400 SaO2% (BldA) [Mass fraction] 98 % Rolan Monaco [employer] Work Phone: [facility] 10-21-2024 16:13-0400 Systolic blood pressure 168 mm[Hg] Rolan Bustosvely [employer] Work Phone: [facility] 10-06-2024 14:24-0400 Body height 170.18 cm Rolan Carlos Enrique [employer] Work Phone: [facility] 10-06-2024 14:24-0400 Body mass index (BMI) [Ratio] 29.7 kg/m2 Rolan [place] [employer] Work Phone: [facility] 10-06-2024 14:24-0400 Body weight 86 kg Rolan Carlos Enrique [employer] Work Phone: [facility] 10-01-2024 11:50-0400 Body height 170.18 cm Rolan Carlos Enrique [employer] Work Phone: [facility] 10-01-2024 10:15-0400 Diastolic blood pressure 74 mm[Hg] Rolan [place] [employer] Work Phone: [facility] 10-01-2024 10:15-0400 Heart rate 61 /min Rolan Carlos Enrique [employer] Work Phone: [facility] 10-01-2024 10:15-0400 Systolic blood pressure 135 mm[Hg] Rolan [place] [employer] Work Phone: [facility] 10-01-2024 08:00-0400 Body temperature 97.5 [degF] Rolan Monaco [employer] Work Phone: [facility] 10-01-2024 08:00-0400 Respiratory rate 20 /min Rolan Monaco [employer] Work Phone: [facility] 10-01-2024 08:00-0400 SaO2% (BldA) [Mass fraction] 99 % Rolan Monaco [employer] Work Phone: [facility] 10-01-2024 06:00-0400 Body weight 88.2 kg Rolan Monaco [employer] Work Phone: [facility] 10-01-2024 02:55-0400 Inhaled oxygen concentration 25 % Rolan Monaco [employer] Work Phone: [facility] 09-30-2024 12:58-0400 Diastolic blood pressure 75 mm[Hg] Rolan Monaco [employer] Work Phone: [facility] 09-30-2024 12:58-0400 Heart rate 60 /min Rolan Monaco [employer] Work Phone: [facility] 09-30-2024 12:58-0400 Respiratory rate 22 /min Rolan Monaco [employer] Work Phone: [facility] 09-30-2024 12:58-0400 SaO2% (BldA) [Mass fraction] 99 % Rolan Monaco [employer] Work Phone: [facility] 09-30-2024 12:58-0400 Systolic blood pressure 159 mm[Hg] Rolan Monaco [employer] Work Phone: [facility] 09-30-2024 11:36-0400 Body temperature 97.4 [degF] Rolan Monaco [employer] Work Phone: [facility] 09-30-2024 09:12-0400 Body height 170.18 cm Rolan Monaco [employer] Work Phone: [facility] 09-30-2024 09:12-0400 Body weight 88 kg Rolan Monaco [employer] Work Phone: [facility] 09-23-2024 13:54-0500 Body height 170.18 cm Rolan [place] [employer] Work Phone: [facility] 09-23-2024 13:54-0500 Body mass index (BMI) [Ratio] 30.7 kg/m2 Rolan [place] [employer] Work Phone: [facility] 09-23-2024 13:54-0500 Body weight 89 kg Rolan Carlos Enrique [employer] Work Phone: [facility] 09-09-2024 14:31-0500 Body height 170.2 cm Rolan Carlos Enrique [employer] Work Phone: [facility] 09-09-2024 14:31-0500 Body mass index (BMI) [Ratio] 29.51 kg/m2 Rolan Carlos Enrique [employer]BER L[employer] Work Phone: [facility] 09-09-2024 14:31-0500 Body weight 85.46 kg Rolan [place] [employer] Work Phone: [facility] 09-09-2024 14:31-0500 Diastolic blood pressure 82 mm[Hg] Rolan [place] [employer] Work Phone: [facility] 09-09-2024 14:31-0500 Heart rate 54 /min Rolan Carlos Enrique [employer] Work Phone: [facility] 09-09-2024 14:31-0500 Respiratory rate 17 /min Rolan Carlos Enrique [employer]BER [employer] Work Phone: [facility] 09-09-2024 14:31-0500 SaO2% (BldA) [Mass fraction] 99 % Rolan [place] [employer] Work Phone: [facility] 09-09-2024 14:31-0500 Systolic blood pressure 162 mm[Hg] Rolan [place] [employer] Work Phone: [facility] 09-07-2024 13:26-0500 Diastolic blood pressure 84 mm[Hg] Rolan Monaco [employer]-C Work Phone: [facility] 09-07-2024 13:26-0500 Systolic blood pressure 164 mm[Hg] Rolan Monaco [employer]-C Work Phone: [facility] 09-07-2024 13:17-0500 Body height 170.18 cm Rolan Monaco [employer]-C Work Phone: [facility] 09-07-2024 13:17-0500 Body mass index (BMI) [Ratio] 29.5 kg/m2 Rolan Monaco [employer]-C Work Phone: [facility] 09-07-2024 13:17-0500 Body weight 85.33 kg Rolan Monaco [employer]-C Work Phone: [facility] 09-07-2024 13:17-0500 Heart rate 70 /min Rolan Monaco [employer]-C Work Phone: [facility] 09-07-2024 13:17-0500 Respiratory rate 18 /min Rolan Monaco [employer]-C Work Phone: [facility] 09-07-2024 13:17-0500 SaO2% (BldA) [Mass fraction] 97 % Rolan Monaco [employer]-C Work Phone: [facility] 08-26-2024 13:12-0500 Body height 170.18 cm Rolan Monaco [employer]-C Work Phone: [facility] 08-26-2024 13:12-0500 Body mass index (BMI) [Ratio] 29.6 kg/m2 Rolan Monaco [employer]-C Work Phone: [facility] 08-26-2024 13:12-0500 Body weight 85.8 kg Rolan Monaco [employer]-C Work Phone: [facility] 08-05-2024 15:54-0500 Body height 170.2 cm Rolan Carlos Enrique [employer] Work Phone: [facility] 08-05-2024 15:54-0500 Body mass index (BMI) [Ratio] 29.95 kg/m2 Rolan [place] [employer] Work Phone: [facility] 08-05-2024 15:54-0500 Body weight 86.73 kg Rolan Carlos Enrique [employer] Work Phone: [facility] 08-05-2024 15:54-0500 Diastolic blood pressure 72 mm[Hg] Rolan [place] [employer] Work Phone: [facility] 08-05-2024 15:54-0500 Heart rate 64 /min Rolan Carlos Enrique [employer] Work Phone: [facility] 08-05-2024 15:54-0500 Respiratory rate 17 /min Rolan Carlos Enrique [employer] Work Phone: [facility] 08-05-2024 15:54-0500 SaO2% (BldA) [Mass fraction] 94 % Rolan Carlos Enrique [employer] Work Phone: [facility] 08-05-2024 15:54-0500 Systolic blood pressure 138 mm[Hg] Rolan [place] [employer] Work Phone: [facility] 07-29-2024 13:52-0500 Body height 170.2 cm Rolan [place] [employer] Work Phone: [facility] 07-29-2024 13:52-0500 Body mass index (BMI) [Ratio] 29.98 kg/m2 Rolan Carlos Enrique [employer] Work Phone: [facility] 07-29-2024 13:52-0500 Body weight 86.82 kg Rolan Carlos Enrique [employer] Work Phone: [facility] 07-29-2024 13:52-0500 Diastolic blood pressure 86 mm[Hg] Rolan Carlos Enrique [employer] Work Phone: [facility] 07-29-2024 13:52-0500 Heart rate 58 /min Rolan [place] [employer] Work Phone: [facility] 07-29-2024 13:52-0500 Respiratory rate 17 /min Rolan Monaco SL[employer] Work Phone: [facility] 07-29-2024 13:52-0500 SaO2% (BldA) [Mass fraction] 98 % Rolan Carlos Enrique [employer] Work Phone: [facility] 07-29-2024 13:52-0500 Systolic blood pressure 166 mm[Hg] Rolan Carlos Enrique [employer] Work Phone: [facility] 07-20-2024 10:22-0500 Body height 170.2 cm Rolan [place] [employer] Work Phone: [facility] 07-20-2024 10:22-0500 Body mass index (BMI) [Ratio] 29.76 kg/m2 Rolan Carlos Enrique [employer] Work Phone: [facility] 07-20-2024 10:22-0500 Body weight 86.18 kg Rolan Carlos Enrique [employer] Work Phone: [facility] 07-20-2024 10:22-0500 Diastolic blood pressure 82 mm[Hg] Rolan Carlos Enrique [employer] Work Phone: [facility] Comment on above: standing 132 80 07-20-2024 10:22-0500 Heart rate 52 /min Rolan Monaco SL[employer] Work Phone: [facility] 07-20-2024 10:22-0500 SaO2% (BldA) [Mass fraction] 100 % Rolan Carlos Enrique [employer] Work Phone: [facility] 07-20-2024 10:22-0500 Systolic blood pressure 138 mm[Hg] Rolan Carlos Enrique [employer] Work Phone: [facility] Comment on above: standing 132 80 07-15-2024 16:28-0500 Body height 170.2 cm Rolan Monaco SL[employer] Work Phone: [facility] 07-15-2024 16:28-0500 Body mass index (BMI) [Ratio] 29.76 kg/m2 Rolan Carlos Enrique [employer] Work Phone: [facility] 07-15-2024 16:28-0500 Body weight 86.18 kg Rolan Monaco [employer] Work Phone: [facility] 07-15-2024 16:28-0500 Diastolic blood pressure 90 mm[Hg] Rolan Monaco [employer] Work Phone: [facility] 07-15-2024 16:28-0500 Heart rate 60 /min Rolan Monaco [employer] Work Phone: [facility] 07-15-2024 16:28-0500 Respiratory rate 17 /min Rolan Monaco [employer] Work Phone: [facility] 07-15-2024 16:28-0500 SaO2% (BldA) [Mass fraction] 96 % Rolan Monaco [employer] Work Phone: [facility] 07-15-2024 16:28-0500 Systolic blood pressure 185 mm[Hg] Rolan Monaco [employer] Work Phone: [facility] 04-22-2024 13:52-0400 Body height 170.2 cm Marcos Nichole DPM Work Phone: [facility] 04-22-2024 13:52-0400 Body mass index (BMI) [Ratio] 28.98 kg/m2 Marcos Nichole DPM Work Phone: [facility] 04-22-2024 13:52-0400 Body weight 83.92 kg Marcos Nichole DPM Work Phone: [facility] 04-22-2024 13:52-0400 Diastolic blood pressure 79 mm[Hg] Marcos Nichole DPM Work Phone: [facility] 04-22-2024 13:52-0400 Heart rate 76 /min Marcos Nichole DPM Work Phone: [facility] 04-22-2024 13:52-0400 Respiratory rate 17 /min Macros Nichole DPM Work Phone: [facility] 04-22-2024 13:52-0400 Systolic blood pressure 125 mm[Hg] Marcos Nichole DPM Work Phone: [facility] 04-08-2024 14:24-0400 Body height 170.2 cm Marcos Brown DPM Work Phone: [facility] 04-08-2024 14:24-0400 Body mass index (BMI) [Ratio] 28.98 kg/m2 Marcos Brown DPM Work Phone: [facility] 04-08-2024 14:24-0400 Body weight 83.92 kg Marcos Brown DPM Work Phone: [facility] 04-08-2024 14:24-0400 Diastolic blood pressure 79 mm[Hg] Marcos Brown DPM Work Phone: [facility] 04-08-2024 14:24-0400 Heart rate 78 /min Marcos Brown DPM Work Phone: [facility] 04-08-2024 14:24-0400 Respiratory rate 18 /min Marcos Brown DPM Work Phone: [facility] 04-08-2024 14:24-0400 Systolic blood pressure 125 mm[Hg] Marcos Brown DPM Work Phone: [facility] 03-25-2024 13:29-0400 Body height 170.2 cm Marcos Brown DPM Work Phone: [facility] 03-25-2024 13:29-0400 Body mass index (BMI) [Ratio] 28.98 kg/m2 Marcos Brown DPM Work Phone: [facility] 03-25-2024 13:29-0400 Body weight 83.92 kg Marcos Brown DPM Work Phone: [facility] 03-25-2024 13:29-0400 Diastolic blood pressure 79 mm[Hg] Marcos Brown DPM Work Phone: [facility] 03-25-2024 13:29-0400 Heart rate 82 /min Marcos Brown DPM Work Phone: [facility] 03-25-2024 13:29-0400 Systolic blood pressure 125 mm[Hg] Marcos Nichole DPM Work Phone: [facility] 01-08-2024 12:50-0400 Body height 170.2 cm [facility] 1 [facility] 01-08-2024 12:50-0400 Body mass index (BMI) [Ratio] 30.54 kg/m2 [facility] 1 [facility] 01-08-2024 12:50-0400 Body weight 88.45 kg Pmh 1 [facility] Encounters Encounter Date Encounter Type Care Provider Facility Start: 11-30-2024 End: 11-30-2024 Bamboo flowsheet Rolan Monaco [employer] Work Phone: [facility] Start: 11-30-2024 End: 11-30-2024 Bamboo flowsheet Rolan Monaco [employer] Work Phone: [facility] Start: 11-30-2024 End: 11-30-2024 Office outpatient visit 25 minutes Rolan Monaco [employer] Work Phone: [facility] Comment on above: Tobacco abuse (Prima ry Dx); Adjustment disorder with depressed mood (CMS/HCC); SOB (shortness of breath); Abnormal lung sounds Start: 11-30-2024 End: 11-30-2024 ambulatory ROLAN MONACO Not Available Start: 11-29-2024 End: 11-29-2024 Clinisync Result Encounter Rolan Monaco [employer] Work Phone: [facility] Unsolicited Start: 11-29-2024 End: 11-29-2024 Clinisync Result Encounter Rolan Monaco [employer] Work Phone: [facility] Unsolicited Start: 11-19-2024 End: 11-19-2024 ambulatory VINICIUS MATHEW Not Available Start: 11-19-2024 End: 11-19-2024 Bamboo flowsheet Vinicius Mathew DO Work Phone: [facility] Start: 11-19-2024 End: 11-19-2024 Bamboo flowsheet Vinicius Mathew DO Work Phone: [facility] Start: 11-14-2024 Non-patient / Non-visit Rolan Monaco [employer]-C Work Phone: [facility] Neurosurgery Work Phone: Start: 11-12-2024 End: 11-15-2024 Evaluation and management of inpatient Rolan Monaco [employer]-C Work Phone: [facility] [place] [facility] Work Phone: Start: 11-12-2024 Non-patient / Non-visit Rolan Monaco [employer]-C Work Phone: [facility] Neurosurgery Work Phone: Start: 11-11-2024 Non-patient / Non-visit Rolan Monaco [employer]-C Work Phone: [facility] Pulmonary Work Phone: Start: 11-05-2024 Non-patient / Non-visit Rolan Monaco [employer]-C Work Phone: [facility] Neurosurgery Work Phone: Start: 11-04-2024 Non-patient / Non-visit Rolan Monaco [employer]-C Work Phone: [facility] Pulmonary Work Phone: Start: 11-04-2024 Non-patient / Non-visit Rolan Monaco [employer]-C Work Phone: [facility] Neurosurgery Work Phone: Start: 11-04-2024 End: 11-12-2024 Evaluation and management of inpatient Rolan Monaco [employer]-C Work Phone: [facility] Work Phone: Start: 10-28-2024 End: 10-28-2024 Assay of hemosiderin, quant Rolan Monaco [employer] Work Phone: [facility] Start: 10-28-2024 End: 10-28-2024 Patient encounter procedure Rolan Monaco [employer] Work Phone: [facility] Comment on above: Bilateral carpal gisselle polina syndrome (Primary Dx); Paresthesia of skin; Sleep apnea in adult; Primary hypertension (CMS/HCC); Benign prostatic hyperplasia with urinary frequency; Acquired spondylolisthesis; Primary osteoarthritis of right knee; Morbid obesity (CMS/HCC); Adjustment disorder with anxiety (CMS/HCC); Adjustment disorder with depressed mood (CMS/HCC); Alcohol abuse; Hypertriglyceridemia (CMS/HCC); Routine general medical examination at health care facility Start: 10-28-2024 End: 10-28-2024 ambulatory ROLAN MONACO Not Available Start: 10-28-2024 End: 10-28-2024 Bamboo flowsheet Rolan Monaco [employer] Work Phone: [facility] Start: 10-28-2024 End: 10-28-2024 Bamboo flowsheet Rolan Monaco [employer] Work Phone: [facility] Start: 10-21-2024 End: 10-21-2024 Office outpatient visit 25 minutes Rolan Monaco [employer] Work Phone: [facility] Comment on above: Sleep apnea in adult (Primary Dx); Hypertriglyceridemia (CMS/HCC) Start: 10-21-2024 End: 10-21-2024 ambulatory ROLAN MONACO Not Available Start: 10-21-2024 End: 10-21-2024 Bamboo flowsheet Rolan Monaco [employer] Work Phone: [facility] Start: 10-21-2024 End: 10-21-2024 Bamboo flowsheet Rolan Monaco [employer] Work Phone: [facility] Start: 10-21-2024 End: 10-21-2024 Patient encounter procedure Rolan Monaco [employer]-C Work Phone: [facility]-Pre-Surgical Testing Work Phone: Start: 10-21-2024 End: 10-21-2024 ambulatory Rolan Monaco [employer]-C Work Phone: [facility] Work Phone: Start: 10-21-2024 Encounter for preprocedural laboratory examination Reyes Bridges [facility] Start: 10-12-2024 End: 10-12-2024 Patient encounter procedure Rolan Monaco [employer]-C Work Phone: [facility] [address] Work Phone: Start: 10-12-2024 End: 10-12-2024 ambulatory Rolan Monaco [employer]-C Work Phone: [facility] Work Phone: Start: 10-06-2024 End: 10-06-2024 ambulatory Rolan Monaco [employer]-C Work Phone: [facility] Work Phone: Start: 10-06-2024 End: 10-06-2024 Patient encounter procedure Rolan Monaco [employer]-C Work Phone: [facility] Neurosurgery Work Phone: Start: 09-30-2024 End: 10-01-2024 Evaluation and management of inpatient Rolan Monaco [employer]-C Work Phone: [facility] [place] [facility] Work Phone: Start: 09-30-2024 End: 10-01-2024 observation encounter Rolan Monaco [employer]-C Work Phone: [facility] Work Phone: Start: 09-30-2024 End: 10-01-2024 ambulatory Rolan Monaco Facility:[facility] Start: 09-23-2024 End: 09-23-2024 ambulatory Rolan Monaco [employer]-C Work Phone: [facility] Work Phone: Start: 09-23-2024 End: 09-23-2024 Patient encounter procedure Rolan Monaco [employer]-C Work Phone: [facility] Neurosurgery Work Phone: Start: 09-20-2024 End: 09-20-2024 Patient encounter procedure Rolan Monaco [employer]-C Work Phone: [facility] [address] Cl[facility] Work Phone: Start: 09-20-2024 End: 09-20-2024 ambulatory Rolan Monaco [employer]-C Work Phone: [facility] Work Phone: Start: 09-09-2024 End: 09-09-2024 Office outpatient visit 25 minutes Rolan Monaco [employer] Work Phone: [facility] Comment on above: Sleep apnea, unspeci fied type (Primary Dx) Start: 09-09-2024 End: 09-09-2024 ambulatory ROLAN MONACO Not Available Start: 09-09-2024 End: 09-09-2024 Bamboo flowsheet Rolan Monaco [employer] Work Phone: [facility] Start: 09-09-2024 End: 09-09-2024 Bamboo flowsheet Rolan Monaco [employer] Work Phone: [facility] Start: 09-07-2024 End: 09-07-2024 ambulatory Rolan Monaco [employer]-C Work Phone: [facility] Work Phone: Start: 09-07-2024 End: 09-07-2024 Patient encounter procedure Rolan Monaco [employer]-C Work Phone: [facility] Work Phone: Start: 08-26-2024 End: 08-26-2024 ambulatory Rolan Monaco [employer]-C Work Phone: [facility] Work Phone: Start: 08-26-2024 End: 08-26-2024 Patient encounter procedure Rolan Monaco [employer]-C Work Phone: [facility] Neurosurgery Work Phone: Start: 08-17-2024 End: 08-17-2024 Telephone encounter Zayra Aquino MD Work Phone: [facility] Start: 08-10-2024 End: 08-10-2024 Patient encounter procedure Rolan Monaco [employer]-C Work Phone: [facility] Start: 08-10-2024 End: 08-10-2024 ambulatory Rolan Monaco [employer]-C Work Phone: [facility] Work Phone: Start: 08-10-2024 End: 08-10-2024 ambulatory Rolan Monaco [employer]-C Work Phone: [facility] Work Phone: Start: 08-10-2024 End: 08-10-2024 Patient encounter procedure Rolan Monaco [employer]-C Work Phone: [facility] Orthopedics Work Phone: Start: 08-05-2024 End: 08-05-2024 Office outpatient visit 25 minutes Rolan Monaco [employer] Work Phone: [facility] Comment on above: Hyponatremia (Primar y Dx) Start: 08-05-2024 End: 08-05-2024 ambulatory ROLAN MONACO Not Available Start: 08-05-2024 End: 08-05-2024 Bamboo flowsheet Rolan Monaco [employer] Work Phone: [facility] Start: 08-05-2024 End: 08-05-2024 Bamboo flowsheet Rolan Monaco [employer] Work Phone: [facility] Start: 08-02-2024 End: 08-02-2024 Bamboo flowsheet Corine Ojeda SL[employer] Work Phone: [facility] Start: 08-02-2024 End: 08-02-2024 Bamboo flowsheet Corine Strickland Rusty [employer] LIGHT Work Phone: [facility] Start: 08-02-2024 End: 08-02-2024 Office outpatient visit 10 minutes Corine Strickland Helenrui [employer] Work Phone: [facility] Comment on above: Status post right kn ee replacement (Primary Dx); Right knee pain, unspecified chronicity; Falls; Left hip pain; Avascular necrosis of bone of left hip (CMS/HCC); Arthralgia, unspecified joint Start: 08-02-2024 End: 08-02-2024 ambulatory CORINE Strickland RUSTY Not Available Start: 07-29-2024 End: 07-29-2024 Bamboo flowsheet Rolan Monaco [employer] Work Phone: [facility] Start: 07-29-2024 End: 07-29-2024 Bamboo flowsheet Rolan Monaco [employer] Work Phone: [facility] Start: 07-29-2024 End: 07-29-2024 Office outpatient visit 25 minutes Rolan Monaco [employer] Work Phone: [facility] Comment on above: Hyponatremia (Primar y Dx); Primary hypertension (CMS/HCC) Start: 07-29-2024 End: 07-29-2024 ambulatory ROLAN MONACO Not Available Start: 07-20-2024 End: 07-20-2024 Bamboo flowsbird Monaco SL[employer] LIGHT Work Phone: [facility] Start: 07-20-2024 End: 07-20-2024 Bamboo flowsheet Rolan Monaco [employer] Work Phone: [facility] Start: 07-20-2024 End: 07-20-2024 Office outpatient visit 25 minutes Rolan Monaco [employer] Work Phone: [facility] Comment on above: Avascular necrosis o f bone of hip, unspecified laterality (CMS/HCC) (Primary Dx); Hyponatremia Start: 07-20-2024 End: 07-20-2024 ambulatory ROLAN MONACO Not Available Start: 07-18-2024 Non-patient / Non-visit Rolan Monaco [employer]-C Work Phone: [facility] Work Phone: Start: 07-15-2024 End: 07-15-2024 Office outpatient visit 25 minutes Rolan Monaco [employer] Work Phone: [facility] Comment on above: Acute bilateral low back pain without sciatica (Primary Dx); Anxiety; Hypertriglyceridemia (CMS/HCC); Muscle spasm of back; Benign prostatic hyperplasia, unspecified whether lower urinary tract symptoms present; Acute pain of left hip Start: 07-15-2024 End: 07-15-2024 ambulatory ROLAN MONACO Not Available Start: 07-15-2024 End: 07-15-2024 Bamboo flowsheet Rolan Monaco SL[employer] Work Phone: [facility] Start: 07-15-2024 End: 07-15-2024 Bamboo flowsheet Rolan Monaco [employer] Work Phone: [facility] Start: 06-29-2024 End: 06-29-2024 Telephone encounter Edmundo Day DO Work Phone: [facility] Start: 06-21-2024 End: 06-21-2024 ambulatory Bogdan Calle MD Facility:[facility] Start: 06-07-2024 End: 06-07-2024 ambulatory Bogdan Calle MD Facility:[facility] Start: 05-24-2024 End: 05-24-2024 ambulatory Polous Lillian Calle MD Facility:[facility] Start: 04-27-2024 End: 04-27-2024 Bamboo flowsheet Edmundo Day DO Work Phone: [facility] Start: 04-27-2024 End: 04-27-2024 Bamboo flowsheet Edmundo Day DO Work Phone: [facility] Start: 04-27-2024 End: 04-27-2024 Postop follow up visit related to original px Edmundo Day DO Work Phone: [facility] Comment on above: Primary osteoarthrit is of right knee; Status post right knee replacement Start: 04-27-2024 End: 04-27-2024 ambulatory EDMUNDO DAY Not Available Start: 04-22-2024 End: 04-22-2024 Bamboo flowsheet Marcos Nichole DPM Work Phone: [facility] Start: 04-22-2024 End: 04-22-2024 Bamboo flowsheet Marcos Nichole DPM Work Phone: [facility] Start: 04-22-2024 End: 04-22-2024 Office outpatient visit 15 minutes Marcos Nichole DPM Work Phone: [facility] Comment on above: Verruca plantaris (P rimary Dx); Foot pain, right Start: 04-22-2024 End: 04-22-2024 ambulatory MARCOS NICHOLE Not Available Start: 04-08-2024 End: 04-08-2024 Patient encounter procedure Marcos Nichole DPM Work Phone: [facility] Comment on above: Verruca plantaris (P rimary Dx); Foot pain, right Start: 04-08-2024 End: 04-08-2024 ambulatory MARCOS NICHOLE Not Available Start: 04-08-2024 End: 04-08-2024 Bamboo flowsheet Marcos Nichole DPM Work Phone: [facility] Start: 04-08-2024 End: 04-08-2024 Bamboo flowsheet Marcos Nichole DPM Work Phone: [facility] Start: 03-25-2024 End: 03-25-2024 Bamboo flowsheet Marcos Nichole DPM Work Phone: [facility] Start: 03-25-2024 End: 03-25-2024 Bamboo flowsheet Marcos Nichole DPM Work Phone: [facility] Start: 03-25-2024 End: 03-25-2024 Office outpatient new 30 minutes Marcos Nichole DPM Work Phone: [facility] Comment on above: Neoplasm of uncertai n behavior of skin (Primary Dx); Verruca plantaris; Foot pain, right Start: 03-25-2024 End: 03-25-2024 ambulatory MARCOS NICHOLE Not Available Start: 03-16-2024 End: 03-16-2024 Telephone encounter Luis Eduardo Mas PT Work Phone: [facility] Comment on above: re: fu (He called no ting Dr. Day said he was pleased w/ his status and progress is good; no need to continue w/ PT. He said he was happy w/ his status as well and thankful for the PT he received.) Start: 03-16-2024 End: 03-16-2024 Postop follow up visit related to original px Edmundo Day DO Work Phone: [facility] Comment on above: Primary osteoarthrit is of right knee; Status post right knee replacement Start: 03-16-2024 End: 03-16-2024 ambulatory EDMUNDO DAY Not Available Start: 03-15-2024 End: 03-15-2024 Bamboo flowsheet Luis Eduardo Mas PT Work Phone: [facility] Start: 03-15-2024 End: 03-15-2024 Bamboo flowsheet Luis Eduardo Mas PT Work Phone: [facility] Start: 03-15-2024 End: 03-15-2024 ambulatory Luis Eduardo Mas PT Work Phone: [facility] Comment on above: Acute pain of right knee (Primary Dx); Presence of artificial knee joint, right Start: 03-12-2024 End: 03-12-2024 Bamboo flowsheet Ernesto Brink DISH TECHNICIAN [facility] Start: 03-12-2024 End: 03-12-2024 Bamboo flowsheet Ernesto Brink DISH TECHNICIAN [facility] Start: 03-12-2024 End: 03-12-2024 ambulatory Ernesto Brink DISH TECHNICIAN [facility] Comment on above: Acute pain of right knee (Primary Dx); Presence of artificial knee joint, right; Primary osteoarthritis of right knee Start: 03-10-2024 End: 03-10-2024 Bamboo flowsheet Kathy Jamilbley DISH TECHNICIAN [facility] Start: 03-10-2024 End: 03-10-2024 Bamboo flowsheet Kathy Jamilbley DISH TECHNICIAN [facility] Start: 03-10-2024 End: 03-10-2024 ambulatory Kathy Jamilbley DISH TECHNICIAN [facility] Comment on above: Acute pain of right knee (Primary Dx); Presence of artificial knee joint, right; Primary osteoarthritis of right knee Start: 03-08-2024 End: 03-08-2024 ambulatory ERNESTO TAI Not Available Start: 03-05-2024 End: 03-05-2024 ambulatory KATHY JAMILBLEY Not Available Start: 03-01-2024 End: 03-01-2024 ambulatory ERNESTO TAI Not Available Start: 02-27-2024 End: 03-01-2024 ambulatory ERNESTO BRINK Not Available Start: 02-25-2024 End: 02-25-2024 ambulatory KATHY KELBLEY Not Available Start: 02-23-2024 End: 02-23-2024 ambulatory LAMAR WADSWORTH Not Available Start: 02-18-2024 End: 02-18-2024 ambulatory LUIS EDUARDO MAS Not Available Start: 02-17-2024 End: 02-17-2024 ambulatory EDMUNDO Lackey CRUGER Not Available Start: 02-06-2024 End: 02-06-2024 Evaluation and management of inpatient TERESE RODRIGUEZ [facility] Start: 02-04-2024 End: 02-05-2024 ambulatory [facility] Start: 01-27-2024 End: 01-27-2024 ambulatory [facility] Start: 01-13-2024 End: 01-13-2024 ambulatory ROLAN BUSTOSVELY Not Available Start: 01-08-2024 End: 01-08-2024 Patient encounter procedure [facility] Pre-Admission Testing 1 [facility] - Pre Admit Comment on above: Preop examination (P rimary Dx); Hypertension, unspecified type; Sleep apnea, unspecified type Start: 01-08-2024 End: 01-08-2024 Preprocedural examination done Pm 1 [facility] Start: 01-08-2024 End: 01-08-2024 ambulatory [facility] Start: 01-08-2024 Encounter for other preprocedural examination [facility] Start: 01-08-2024 End: 01-08-2024 ambulatory [facility] Not Available Start: 09-29-2023 End: 09-29-2023 ambulatory Bogdan Calle MD [facility] Start: 09-08-2023 End: 09-08-2023 ambulatory Bogdan Calle MD Facility: [facility] Start: 09-01-2023 Bamboo flowsheet Corine simmons [employer] Work Phone: [facility] Start: 09-01-2023 Bamboo flowsheet Corine simmons [employer] Work Phone: [facility] Start: 09-01-2023 End: 09-01-2023 Office outpatient visit 15 minutes Corine Ojeda [employer] Work Phone: [facility] Comment on above: Right elbow pain (Pr imary Dx); Contusion of right elbow, subsequent encounter; Sprain of right elbow, subsequent encounter Start: 08-18-2023 End: 08-18-2023 ambulatory Bogdan Calle MD [facility] Start: 09-13-2020 End: 09-13-2020 Discharged Recurring Giorgio Hernandez [facility]-Animal Nutrition Consult[address] Start: 05-02-2020 Encounter for preprocedural laboratory examination ZAYRA AQUINO [facility] Start: 04-26-2020 End: 04-27-2020 Patient encounter procedure ROLAN MONACO Facility:[facility] Start: 02-25-2020 End: 02-26-2020 Patient encounter procedure ZAYRA AQUINO Facility:[facility] Encounter for preprocedural laboratory examination ZAYRA AQUINO [facility] Procedures Date Procedure Procedure Detail Performing Clinician Start: 11-29-2024 ALL BASIC METABOLIC PANEL Rolan Temple [place] [employer] Work Phone: Start: 11-10-2024 Plain chest X-ray Sherr i [place] [employer] Work Phone: Start: 11-09-2024 Plain chest X-ray Sherr i Carlos Enrique [employer] Work Phone: Start: 11-08-2024 Plain chest X-ray Sherr i Carlos Enrique [employer] Work Phone: Start: 11-07-2024 Plain chest X-ray Sherr i Carlos Enrique [employer] Work Phone: Start: 11-06-2024 Plain chest X-ray Sherr i Carlos Enrique [employer] Work Phone: Start: 11-05-2024 CT of soft tissues o f neck with contrast Rolan Carlos Enrique [employer] Work Phone: Start: 11-05-2024 CT of thorax with contrast Rolan Carlos Enrique [employer] Work Phone: Start: 11-05-2024 Plain chest X-ray Sherr i Carlos Enrique [employer] Work Phone: Start: 11-05-2024 X-ray of cervical spine Rolan [place] [employer] Work Phone: Start: 11-04-2024 Plain X-ray abdomen She rri [place] [employer] Work Phone: Start: 11-04-2024 Plain chest X-ray Sherr i Carlos Enrique [employer] Work Phone: Start: 11-04-2024 X-ray of cervical spine Rolan [place] [employer] Work Phone: Start: 10-12-2024 CT cervical spine wi thout contrast Rolan [place] [employer] Work Phone: Start: 09-30-2024 Respiratory Panel (PCR) Rolan Monaco [employer] Work Phone: Start: 09-30-2024 CT angiography of head Rolan Monaco [employer] Work Phone: Start: 09-30-2024 CT angiography of ne ck vessels Rolan Monaco [employer] Work Phone: Start: 09-30-2024 CT of head without contrast Rolan Monaco [employer] Work Phone: Start: 09-30-2024 Plain chest X-ray Lauren Monaco [employer] Work Phone: Start: 09-20-2024 CT of head without contrast Rolan Monaco [employer] Work Phone: Start: 09-20-2024 MRI of cervical spin e without contrast Rolan Monaco [employer] Work Phone: Start: 08-10-2024 Plain X-ray of left hip Rolan Monaco [employer] Work Phone: Start: 08-02-2024 Radiologic examinati on knee 1/2 views Corine Ojeda [employer] Work Phone: Start: 03-16-2024 Radiologic examinati on knee 1/2 views Edmundo Day DO Work Phone: Start: 09-01-2023 Radex elbow 2 views Yudy Ojeda [employer] Work Phone: Start: 03-17-2015 Colonoscopy Corine Myers ng [employer] Work Phone: History of decompres kael of median nerve History of carpal tunnel release Rolan Monaco [employer] Work Phone: Comment on above: bilateral 2020 Plan of Treatment Date Care Activity Detail Author Start: 11-03-2026 Screening for malign ant neoplasm of colon [facility] Start: 10-28-2025 Medicare Annual Well ness (AWV) Medicare Annual Wellness (AWV) [facility] Start: 03-21-2025 Influenza vaccination Influenz a Vaccine (Season Ended) [facility] Start: 03-17-2025 Screening for malign ant neoplasm of colon [facility] Start: 01-07-2025 Adult BMI Screening Adult BMI Screen ing [facility] Start: 01-07-2025 Tobacco Screening Tobacco Screening [facility] Start: 12-10-2024 End: 12-10-2024 Patient encounter procedure 12/10/2024 1:00 PM EDT Office Visit MARISELAS MAJO HAILE [address] [place] [address] Vinicius Mathew DO [address] [place] [address] [facility] Start: 11-30-2024 End: 11-30-2025 XR Chest 2 Views XR chest 2 views Imaging Routine SOB (shortness of breath) Abnormal lung sounds Expected: 11/30/2024, Expires: 11/30/[address] [facility] Work Phone: Comment on above: Expected: 11/30/2024 , Expires: 11/30/2025 Start: 11-30-2024 End: 11-30-2024 Patient encounter procedure [facility] Comment on above: Arrived Start: 11-15-2024 [facility] Start: 11-12-2024 Hospital admission [facility] Start: 11-12-2024 Referral to clinical graduate engineer [facility] Start: 11-12-2024 End: 11-12-2024 Referral to rehabilitation physician [facility] Start: 11-12-2024 End: 11-12-2024 [facility] Start: 11-10-2024 [facility] Start: 11-08-2024 Referral to ear, nos e and throat surgeon [facility] Start: 11-04-2024 Computer Assisted Procedure of Trunk Region, With Fluoroscopy Computer Assisted Procedure of Trunk Region, With Fluoroscopy [facility] Start: 11-04-2024 Fusion of 2 or more Cervical Vertebral Joints with Autologous Tissue Substitute, Posterior Approach, Posterior Column, Open Approach Fusion of 2 or more Cervical Vertebral Joints with Autologous Tissue Substitute, Posterior Approach, Posterior Column, Open Approach [facility] Start: 11-04-2024 Insertion of Endotracheal Airway into Trachea, Via Natural or Artificial Opening Insertion of Endotracheal Airway into Trachea, Via Natural or Artificial Opening [facility] Start: 11-04-2024 Release Cervical Ner ve, Open Approach Release Cervical Nerve, Open Approach [facility] Start: 11-04-2024 Hospital admission [facility] Start: 11-04-2024 Hospital admission [facility] Start: 10-28-2024 End: 10-28-2024 Patient encounter procedure [facility] Comment on above: Arrived Start: 10-28-2024 End: 10-28-2025 CBC panel - Blood by Automated count CBC Lab Routine Primary hypertension ([facility]/HCC) Expected: 10/28/2024 (Approximate), Expires: 10/28/[address] [facility] Work Phone: Comment on above: Expected: 10/28/2024 (Approximate), Expires: 10/28/2025 Start: 10-28-2024 End: 10-28-2025 Comprehensive metabolic 2000 panel - Serum or Plasma Comprehensive metabolic panel Lab Routine Primary hypertension ([facility]/HCC) Expected: 10/28/2024 (Approximate), Expires: 10/28/[address] [facility] Comment on above: Expected: 10/28/2024 (Approximate), Expires: 10/28/2025 Start: 10-21-2024 End: 10-21-2024 Patient encounter procedure 10/21/2024 4:30 PM EDT Office Visit [facility] [address] [facility] [address] [place] [phone] Rolan Monaco NP [address] [facility] [address] [place] [address] Arrived [facility] Comment on above: Arrived Start: 10-21-2024 Medicare Annual Well ness (AWV) Medicare Annual Wellness (AWV) [facility] Start: 10-01-2024 End: 10-01-2024 [facility] Start: 09-30-2024 Hospital admission [facility] Start: 09-30-2024 [facility] Start: 09-30-2024 CT angiography of ne ck vessels [facility] Start: 09-30-2024 Telemedicine consultation with patient [facility] Start: 09-09-2024 End: 09-09-2024 Patient encounter procedure 09/09/2024 2:30 PM EST Office Visit [facility] [address] [facility] [address] [place] [id number] Rolan Monaco NP [address] [facility] [address] [place] [address] Arrived [facility] Comment on above: Arrived Start: 08-26-2024 Patient referral [facility] Work Phone: Start: 08-10-2024 Patient referral [facility] Work Phone: Start: 08-10-2024 Plain X-ray of left hip XR hip LT min 2V(w/wo pelvis)* [facility] Start: 08-10-2024 XR Hip - left 2 Views F [facility] Start: 08-05-2024 End: 08-05-2024 Patient encounter procedure [facility] Comment on above: Arrived Start: 08-02-2024 End: 08-02-2024 Patient encounter procedure [facility] Comment on above: Status post right kn ee replacement (Primary Dx) Start: 07-29-2024 End: 07-29-2024 Patient encounter procedure [facility] Comment on above: Arrived Start: 07-29-2024 End: 07-29-2025 Sodium [Moles/volume] in Serum or Plasma Sodium Lab Routine Hyponatremia Expected: 07/29/2024 (Approximate), Expires: 07/29/2025 [facility] Work Phone: Comment on above: Expected: 07/29/2024 (Approximate), Expires: 07/29/2025 Start: 07-27-2024 End: 07-27-2024 Patient encounter procedure 07/27/2024 1:00 PM EST Office Visit [facility] [address] [facility] [address] [place] [phone] Marlon Contreras, [employer] [address] [place] [address] [facility] Start: 07-26-2024 End: 07-26-2024 Patient encounter procedure 07/26/2024 1:00 PM EST Office Visit [facility] [address] [facility] [address] [place] [address] Corine Ojeda NP [address] [place] [address] [place] [address] [facility] Start: 07-20-2024 End: 07-20-2024 Patient encounter procedure 07/20/2024 10:30 AM EST Office Visit [facility] [address] [facility] [address] [place] [address] Rolan Monaco [employer] [address] [facility] [address] [place] [address] Arrived [facility] Comment on above: Arrived Start: 07-16-2024 Pneumococcal Vaccine : 65+ Years [...] 07/15/2024 4:30 PM EST Office Visit [facility] [address] [facility] [address] [place] [address] Rolan Monaco, [employer] [address] [facility] [address] [place] [address] Arrived [facility] Comment on above: Arrived Start: 07-15-2024 End: 07-15-2025 XR Hip - left Views XR hip 4+ views left Imaging Routine Acute bilateral low back pain without sciatica Acute pain of left hip Expected: 07/15/2024, Expires: 07/15/2025 [facility] Work Phone: Comment on above: Expected: 07/15/2024 , Expires: 07/15/2025 Start: 04-27-2024 End: 04-27-2024 Patient encounter procedure [facility] Comment on above: Primary osteoarthrit is of right knee; Status post right knee replacement Start: 04-22-2024 End: 04-22-2024 Patient encounter procedure 04/22/2024 1:40 PM EDT Office Visit [facility] [address] [facility] [address] [place] [address] Marcos Nichole DPM [address] [facility] [address] [place] [address] Verruca plantaris (Primary Dx); Foot pain, right [facility] Comment on above: Verruca plantaris (P rimary Dx); Foot pain, right Start: 04-08-2024 End: 04-08-2024 Patient encounter procedure [facility] Comment on above: Verruca plantaris (P rimary Dx); Foot pain, right Start: 03-25-2024 End: 03-25-2024 Patient encounter procedure [facility] Comment on above: Arrived Start: 03-21-2024 Influenza vaccination [facility] Start: 03-16-2024 End: 03-16-2024 Patient encounter procedure 03/16/2024 10:45 AM EDT Office Visit [facility] [address] [facility] [address] [place] [address] Edmundo Day DO [address] [facility] [address] [place] [address] [facility] Start: 03-15-2024 End: 03-15-2024 ambulatory [facility] Comment on above: Arrived Start: 03-12-2024 End: 03-12-2024 ambulatory [facility] Comment on above: Arrived Start: 03-10-2024 End: 03-10-2024 ambulatory 03/10/2024 2:00 PM EDT Treatment [facility] [address] [place] [address] [place] [address] Kathy Arshad, ANDREW Arrived [facility] Comment on above: Arrived Start: 02-04-2024 End: 02-04-2024 Admission to same day surgery center 02/04/2024 7:45 AM EDT - 02/04/2024 10:15 AM EDT Surgery [facility] [address] [place] [address] Edmundo Day, DO [address] [place] [address] [place] [address] REPLACEMENT TOTAL JOINT KNEE [17369 (CPT )] [facility] Comment on above: REPLACEMENT TOTAL MARLENE INT KNEE [98347 (CPT )] Start: 02-04-2024 End: 02-04-2024 Arthrp kne condyle&platu medial&lat compartments REPLACEMENT TOTAL JOINT KNEE right knee degenerative joint disease 02/04/2024 7:45 AM EDT [facility] Start: 02-04-2024 Subsequent hospital visit by physician 02/04/2024 7:45 AM EDT Hospital Encounter [facility] [address] [place] [address] Edmundo Day, DO [address] [facility] [address] [place] [address] [facility] Start: 01-27-2024 End: 12-09-2024 Crossmatch RBC Crossmatch RBC Blood Bank Routine Preop examination Hypertension, unspecified type Sleep apnea, unspecified type Expected: 01/27/2024, Expires: 12/09/2024 [facility] Comment on above: Expected: 01/27/2024 , Expires: 12/09/2024 Start: 01-27-2024 End: 12-09-2024 Type and screen(includes indirect chidi) Type and screen(includes indirect chidi) Blood Bank Routine Preop examination Hypertension, unspecified type Sleep apnea, unspecified type Expected: 01/27/2024, Expires: 12/09/2024 [facility] Work Phone: Comment on above: Expected: 01/27/2024 , Expires: 12/09/2024 Start: 01-18-2024 Influenza vaccination Influenza Vacc ine (#1) [facility] Comment on above: Postponed from 03/21 (Patient Refused) Start: 09-15-2023 End: 09-15-2023 Patient encounter procedure 09/15/2023 1:15 PM EST Office Visit [facility] [address] [place] [id number] Corine Ojeda NP [address] [place] [address] [place] [address] [facility] Start: 07-04-2023 Medicare Annual Well ness (AWV) Medicare Annual Wellness (AWV) [facility] Start: 03-21-2023 COVID-19 Vaccine ( season) COVID-19 Vaccine ( season) [facility] Start: 09-28-2021 Screening for malign ant neoplasm of colon FIT-DNA [facility] Start: 07-30-2018 Pneumococcal Vaccine : 65+ Years (2 of 2 - PCV) Pneumococcal Vaccine: 65+ Years (2 of 2 - PCV) [facility] Start: 02-20-2017 Fall Risk Screening Fall Risk Screen ing [facility] Start: 02-20-2002 Administration of varicella zoster vaccine Zoster (Shingles) Vaccine (1 of 2) [facility] Start: 02-20-1971 DTaP,Tdap and Td Vaccines (1 - Tdap) DTaP,Tdap and Td Vaccines (1 - Tdap) [facility] Start: 02-20-1970 Adult BMI Follow Up Plan Adult BMI Follow Up Plan [facility] Start: 1964 Depression Screening Depression Scre ening [facility] Start: 1952 Medicare Annual Well ness Visit Medicare Annual Wellness Visit [facility] Start: 1950 Screening for malign ant neoplasm of colon [facility] Anion gap measurement [facility] CT Unspecified body region WO contrast [facility] MR Cervical spine WO contrast [facility] Patient Education [facility] Work Phone: Patient referral [facility] Work Phone: Renal function 2000 panel - Serum or Plasma [facility] XR Lumbar spine 4 Views [facility] Immunizations Immunization Date Immunization Notes Care Provider Fa cility 07-11-2022 Influenza, High-dose Seasonal, Quadrivalent, Preservative Free Corine Ojeda [employer] Work Phone: [facility] 07-11-2022 influenza virus vacc ine, unspecified formulation Corine Apling [employer] Work Phone: [facility] 07-17-2021 Influenza, High-dose Seasonal, Quadrivalent, Preservative Free Corine Cervantesing [employer] Work Phone: [facility] 07-17-2021 Pfizer Purple Cap SARS-CoV-2 Vaccination Corine Ojeda [employer] Work Phone: [facility] 10-05-2020 COVID-19 mRNA, Comir alena (Pfizer) Rolan Monaco [employer] Work Phone: [facility] 09-14-2020 COVID-19 mRNA, Comir alena (Pfizer) Rolan Monaco [employer] Work Phone: [facility] 04-20-2020 influenza, high dose seasonal, preservative-free Corine Cervantesing [employer] Work Phone: [facility] 07-30-2017 influenza, injectabl e, quadrivalent, contains preservative Corine Ojeda [employer] Work Phone: [facility] 07-30-2017 pneumococcal polysaccharide vaccine, 23 valent Corine Ojeda [employer] Work Phone: [facility] Payers Date Payer Category Payer Self-pay [id number] 2022 Unknown [id number] 2020 Private Health Insurance [id number] 2020 Unknown [id number]. [id number] 2020 Unknown [id number] 2017 Medicare [id number]. [id number] 1959 Medicare [id number] 1959 Private Health Insurance [id number] 1952 Unknown [id number] 2.16.84 0.1.352617.3.579.2.593 1952 Unknown [id number] 2.16.84 0.1.869060.3.579.2.593 1952 Unknown [id number] 2.16.8 40.1.212471.3.579.2.1286 1952 Unknown [id number] 2.16.8 40.1.645858.3.579.2.1286 1952 Unknown [id number] 2.16.8 40.1.227288.3.579.2.1286 1952 Unknown [id number] 2.16.8 40.1.363017.3.579.2.1286 1952 Unknown [id number] 2.16.8 40.1.354831.3.579.2.1286 1952 Unknown [id number] 2.16.8 40.1.779785.3.579.2.1286 1952 Unknown [id number] 2.16.8 40.1.075220.3.579.2.1286 1952 Unknown [id number] 2.16. 840.1.039655.3.579.2.196 1952 Unknown [id number] 2.16. 840.1.734818.3.579.2. 1952 Unknown [id number] 2.16. 840.1.430879.3.579.2. 1952 Unknown [id number] 2.16. 840.1.533142.3.579.2. 1952 Unknown [id number] 2.16. 840.1.384265.3.579.2. 1952 Unknown [id number] 2.16. 840.1.579760.3.579.2. 1952 Unknown [id number] 2.16.84 0.1.409651.3.579.2.1258 1952 Unknown [id number] 2.16.84 0.1.624797.3.579.2.1258 1952 Unknown [id number] 2.16.84 0.1.515852.3.579.2.1258 1952 Unknown [id number] 2.16.84 0.1.711576.3.579.2.1258 1952 Unknown [id number] 2.16.84 0.1.591802.3.579.2.1258 1952 Unknown [id number] 2.16.84 0.1.591120.3.579.2.1258 1952 Unknown [id number] 2.16.84 0.1.696933.3.579.2.1258 1952 Unknown [id number] 2.16.84 0.1.541165.3.579.2.1258 1952 Unknown [id number] 2.16.84 0.1.025633.3.579.2.1258 1952 Unknown [id number] 2.16.84 0.1.410213.3.579.2.1258 1952 Unknown [id number] 2.16.84 0.1.283305.3.579.2.1258 1952 Unknown [id number] 2.16.84 0.1.265106.3.579.2.1258 1952 Unknown [id number] 2.16.84 0.1.191712.3.579.2.1258 1952 Unknown [id number] 2.16.84 0.1.667941.3.579.2.1258 1952 Unknown [id number] 2.16.84 0.1.589279.3.579.2.1258 1952 Unknown [id number] 2.16.84 0.1.045723.3.579.2.1258 1952 Unknown [id number] 2.16.84 0.1.650119.3.579.2.1258 1952 Unknown [id number] 2.16.84 0.1.651393.3.579.2.1258 1952 Unknown [id number] 2.16.84 0.1.157783.3.579.2.1258 1952 Unknown [id number] 2.16.84 0.1.027462.3.579.2.1258 1952 Unknown [id number] 2.16.84 0.1.137087.3.579.2.1258 1952 Unknown [id number] 2.16.84 0.1.328007.3.579.2.1258 1952 Unknown [id number] 2.16.84 0.1.447495.3.579.2.1258 1952 Unknown [id number] 2.16.84 0.1.508201.3.579.2.1258 1952 Unknown [id number] 2.16.84 0.1.763849.3.579.2.1258 1952 Unknown [id number] 2.16.84 0.1.904228.3.579.2.1259 1952 Unknown [id number] 2.16.84 0.1.496289.3.579.2.9 1952 Unknown [id number] 2.16.84 0.1.485061.3.579.2.9 1952 Unknown [id number] 2.16.84 0.1.767955.3.579.2.1258 1952 Unknown [id number] 2.16.84 0.1.772481.3.579.2.9 1952 Unknown [id number] 2.16.84 0.1.145031.3.579.2.1259 Unknown [id number] 2.16.8 40.1.117656.3.579.2.531 Unknown [id number] 2.16.8 40.1.283628.3.579.2.531 Unknown [id number] 2.16.8 40.1.911614.3.579.2.531 Unknown [id number] 2.16.8 40.1.668596.3.579.2.531 Unknown [id number] 2.16.8 40.1.475457.3.579.2.531 Unknown [id number] 2.16.8 40.1.892472.3.579.2.531 Unknown [id number] 2.16.8 40.1.819671.3.579.2.531 Unknown [id number] 2.16.8 40.1.571770.3.579.2.531 Social History Date Type Detail Facility Tobacco smoking status OHIS Unknown if ever smoked [facility] Start: 1950 Sex Assigned At Male F [facility] Start: 08-04-2023 End: 01-08-2024 Tobacco smoking status NHIS Ex-smoker [facility] Start: 09-30-2024 End: 11-12-2024 History of tobacco use Current smoker [facility] End: 07-21-2003 History of tobacco use Cigarette Smoker [facility] Start: 08-04-2023 End: 11-30-2024 Tobacco use and exposure Smokeless tobacco non-user [facility] Start: 08-04-2023 End: 11-30-2024 Alcohol intake Current drinker of alcohol (finding) [facility] Start: 08-04-2023 End: 05-18-2024 History of Social function [facility] Start: 08-04-2023 End: 05-18-2024 Tobacco use panel [facility] Start: 07-03-2023 Alcohol Comment caffeine yes t ype: coffee [facility] Start: 1950 Sex Assigned At Not [...] , never or living with a partner? [facility] Do you feel stress - tense, restless, nervous, or anxious, or unable to sleep at night because your mind is troubled all the time - these days [OSQ] Not at all [facility] (I/We) worried whether (my/our) food would run out before (I/we) got money to buy more. Never true [facility] Tobacco smoking status NHIS Unknown if ever smoked [facility] Work Phone: Start: 08-10-2024 End: 11-15-2024 Sex Male (finding) [facility] Start: 06-07-2020 Tobacco Comment [facility] Start: 05-25-2020 Alcohol Comment occasional [facility] Start: 11-12-2024 End: 11-15-2024 SDOH Follow up SDOH Follow up [facility] Work Phone: How often do you nee d to have someone help you when you read instructions, pamphlets, or other written material from your doctor or pharmacy [SILS] Rarely [facility] Work Phone: Start: 11-30-2024 Tobacco smoking status NHIS Smokes tobacco daily [facility] Goals Date Patient Goal Desired Activity /State Functional Status Date Assessment Result Facility 11-30-2024 Patient Health Questionnaire 2 item (PHQ-2) [Reported] [facility] 11-30-2024 PHQ-9 quick depressi on assessment panel [Reported.PHQ] [facility] 11-15-2024 Functional status Patient is Pro gressing Toward Baseline [facility] Work Phone: 11-12-2024 Functional status Patient is Pro gressing Toward Baseline [facility] Work Phone: 11-04-2024 Functional status Patient at Baseline [facility] Work Phone: 10-01-2024 Functional status Patient at Baseline [facility] Work Phone: 09-30-2024 Functional status [facility] at Baseline [facility] Ctr Work Phone: Mental Status Date Assessment Result Facility 11-15-2024 Cognitive function Cognitive Sta tus Patient at [facility] Work Phone: 11-12-2024 Cognitive function Cognitive Sta tus Patient is Progressing Toward [facility] Work Phone: 11-04-2024 Cognitive function Cognitive Sta tus Patient at [facility] Work Phone: 10-01-2024 Cognitive function Cognitive Sta tus Patient at [facility] Work Phone: 09-30-2024 Cognitive function Cognitive Sta tus Patient at [facility] Work Phone: Clinical Notes 09-01-2023 to 11-30-2024 Rolan Monaco NP - 11/30/2024 11:00 AM EDT Note Date & Type Note Facility 11-30-2024 History of Presen t illness Narrative Images from the original note were not included. Subjective Patient ID: Michael Vaughn is a 74 y.o. male who presents for No chief complaint on file.. Michael presents today for a hospital F/U from having a cervical fusion operation in October. He states he is having issues with sleeping and eating. He thinks the collar is on backward. Current Outpatient Medications on File Prior to Visit Medication Sig Dispense Refill Blood Pressure kit 1 Units in the morning and 1 Units in the evening and 1 Units before bedtime. 1 kit 0 busPIRone (Buspar) 5 MG tablet TAKE TWO TABLETS BY MOUTH EVERY MORNING, TAKE ONE TABLET BY MOUTH EVERY AFTERNOON, AND TAKE ONE TABLET BY MOUTH EVERY EVENING 450 tablet 3 carvedilol (Coreg) 12.5 MG tablet Take 2 tablets (25 mg) by mouth in the morning and 2 tablets (25 mg) before bedtime. 200 tablet 3 cephalexin (Keflex) 500 MG capsule Three times daily cyclobenzaprine (Flexeril) 10 MG tablet Take 10 mg by mouth 3 (three) times a day as needed for muscle spasms furosemide (Lasix) 20 MG tablet Take 20 mg by mouth in the morning and 20 mg before bedtime. HYDROcodone-acetaminophen ([place]) 5-325 MG tablet losartan (Cozaar) 25 MG tablet Take 50 mg by mouth Daily sodium chloride 1 g tablet Take 1 tablet (1 g) by mouth in the morning and 1 tablet (1 g) at noon and 1 tablet (1 g) in the evening and 1 tablet (1 g) before bedtime. 120 tablet 11 tamsulosin (Flomax) 0.4 MG 24 hr capsule Take 1 capsule (0.4 mg) by mouth Daily 90 capsule 1 tiZANidine (Zanaflex) 4 MG tablet Take 1 tablet (4 mg) by mouth every 6 (six) hours if needed for muscle spasms 30 tablet 2 venlafaxine (Effexor) 75 MG tablet TAKE 1 TABLET BY MOUTH EVERY MORNING , EVERY EVENING , AND BEFORE BEDTIME 300 tablet 0 No current facility-administered medications on file prior to visit. I have reviewed and reconciled the history and medication list with the patient today. No Known Allergies Social History Tobacco Use Smoking status: Former Current packs/day: 0.00 Types: Cigarettes Quit date: 2003 Years since quittin.3 Smokeless tobacco: Never Vaping Use Vaping status: Every Day Substance Use Topics Alcohol use: Yes Comment: caffeine yes type: coffee Drug use: Never Family History Problem Relation Name Age of Onset Heart disease Mother Cancer Father Prostate cancer Father Past Medical History: Diagnosis Date Aphthous ulcer Cerebrovascular accident (CMS/HCC) Depression (CMS/HCC) Dizziness Elevated blood pressure reading Hypertension (CMS/HCC) Sleep apnea Past Surgical History: Procedure Laterality Date CARPAL TUNNEL RELEASE Bilateral 2019 CERVICAL FUSION HERNIA REPAIR KNEE SURGERY 2001 dr day TOTAL KNEE ARTHROPLASTY Right 02/04/2024 Dr Day Visit Vitals Smoking Status Former Review of Systems Constitutional: Negative. HENT: Negative. Eyes: Negative. Respiratory: Positive for cough, shortness of breath and wheezing. Cardiovascular: Negative. Gastrointestinal: Negative. Genitourinary: Negative. Musculoskeletal: Negative. Neurological: Negative. Psychiatric/Behavioral: Negative. All other systems reviewed and are negative. Objective Physical Exam Vitals reviewed. Constitutional: Appearance: Normal appearance. HENT: Head: Normocephalic. Nose: Nose normal. Mouth/Throat: Mouth: Mucous membranes are moist. Pharynx: Oropharynx is clear. Eyes: Conjunctiva/sclera: Conjunctivae normal. Neck: Comments: Cervical collar in place Cardiovascular: Rate and Rhythm: Normal rate and regular rhythm. Pulmonary: Breath sounds: Wheezing present. Comments: Diminished posteriorly Skin: General: Skin is warm and dry. Neurological: General: No focal deficit present. Mental Status: He is alert and oriented to person, place, and time. Psychiatric: Mood and Affect: Mood normal. Behavior: Behavior normal. Thought Content: Thought content normal. Judgment: Judgment normal. Assessment/Plan Diagnoses and all orders for this visit: Tobacco abuse - nicotine (Nicoderm, Step 1) 21 MG/24HR patch; Place 1 patch over 24 hours on the skin 1 (one) time each day at the same time Discussed smoking cessation with the patient. Encouraged patient to try to cut back gradually and soon quit smoking. Discussed ways to quit smoking including gum, patches, medication, and gradually reducing the number of cigarettes smoked daily. Pt decided to use the patches. Explained to pt that sometimes the insurance company pays for them and sometimes they don't but we would send to the pharmacy. Discussed potential health risks of snf smoking. Patient voiced understanding. Benefits of cessation, both health and financial, were reviewed. Adjustment disorder with depressed mood (CMS/HCC) This is a chronic medical condition that is stable since last assessment. No changes in treatment are suggested at this time. SOB (shortness of breath) - XR chest 2 views; Future Await results of CXR Abnormal lung sounds - XR chest 2 views; Future Await results of CXR. May need an ATB based on CXR. No follow-ups on file. documented in this encounter [facility] 11-14-2024 Consult note Note Date/Time November 14, 2024 3:15pm [facility] [address] [place] [address] Hospitalist Consult Note Signed Patient: Michael Vaughn MR#: [id number] : 1950 Acct:[id number] Age/Sex: 74 / M Adm Date: 5 Loc: Room: [address] [place] [address] Type: ADM IN Attending Dr: Sea Cevallos MD Copies to: MD Juliane Winn APRN Rafik Massouh, MD Sherri M Shively, BRADEN-C~ HPI DATE OF CONSULTATION: 11/13/24 REQUESTING PROVIDER: Sea Cevallos Consult Narrative Reason for Consult: hypertension HPI: 74-year-old male past medical history significant for hypertension, JULI on CPAP,depression/ anxiety, history CVA, alcohol abuse, tobacco use. The patient initially presented to the hospital November 04 for elective C3-6 fusion The patient had history of severe gait ataxia falls and dexterity issues. MRI demonstrated cervical stenosis C4-5 and C5-6 consistent with myelopathy symptoms. Postoperatively the patient developed stridor and was reintubated, treated with steroids and diuresis, and eventually extubated November 10. CT soft tissue neck demonstrated concerns for laryngeal fluid collection/abscess and laryngeal edema though difficult to assess with ET tube in place, seen by ENT services with recommendations for fiberoptic exam post extubation most probably would to be done in the outpatient setting. He was managed by pulmonology/critical care medicine while in the ICU. Hospitalist team is now consulted for ongoing management of hypertension and diabetes. Patient seen and examined. He endorses minimal postoperative pain. Denies chest pain or palpitations. No cough, dyspnea, or pain with inspiration. No abdominal pain or indigestion, constipation or diarrhea, nausea or vomiting. Nodysuria or retention. No headache or dizziness. No fevers or chills. Review of Systems Review of Systems All other systems reviewed & are negative unless noted below or in HPI [facility] Medical History (Updated 11/13/24 @ 17:20 by Juliane Haji APRN) BPH (benign prostatic hyperplasia) Cervical myelopathy Anxiety Head injury from fall Smoker JULI on CPAP Acute confusion Primary osteoarthritis of right hip Primary osteoarthritis of left hip Poor balance Lymphadenitis Sleep apnea Hypertension Depression CVA (cerebral vascular accident) Left hip pain Surgical History History of right inguinal hernia repair History of carpal tunnel release bilateral 2020 Hx of total knee arthroplasty right knee, Dr. Day 02/04/24 Family History Father Prostate cancer Mother History of TB (tuberculosis) Social History Smoking Status: Former smoker Tobacco Type: cigarettes Substance Use Type: None Meds Medications and Allergies Allergies No Known Allergies Allergy (Verified 11/04/24 06:07) Home Medications alprazolam 0.25 mg tablet (Xanax) 0.25 mg PO TID PRN anxiety 09/07/24 [History Confirmed 11/12/24] buspirone 5 mg tablet 10 mg PO QAM 09/07/24 [History Confirmed 11/12/24] carvedilol 25 mg tablet 25 mg PO BID.WITH.MEALS 30 days #60 tabs 10/01/24 [Rx Confirmed 11/12/24] furosemide 20 mg tablet (Lasix) 20 mg PO BID 10/21/24 [History Confirmed 11/12/24] losartan 50 mg tablet 50 mg PO QAM 10/21/24 [History Confirmed 11/12/24] sodium chloride 1,000 mg soluble tablet 1,000 mg PO QID 10/21/24 [History Confirmed 11/12/24] tamsulosin 0.4 mg capsule 0.4 mg PO QAM 10/21/24 [History Confirmed 11/12/24] venlafaxine 75 mg tablet 75 mg PO TID 11/04/24 [History Confirmed 11/12/24] buspirone 5 mg tablet 5 mg PO 11/12/24 [History Confirmed 11/12/24] cephalexin 500 mg capsule 500 mg PO TID #15 caps 11/12/24 [Rx Confirmed 11/12/24] cyclobenzaprine 10 mg tablet 10 mg PO TID PRN back spasms #50 tabs 11/12/24 [Rx Confirmed 11/12/24] oxycodone 5 mg tablet 5 mg PO Q4H PRN pain (scale score 7-10) 11/12/24 [History Confirmed 11/12/24] prednisone 10 mg tablets in a dose pack 10 mg PO PER PKG DIR #30 tabs 11/12/24 [Rx Confirmed 11/12/24] Active Medications: Active Medications Generic Name Dose Route Start Last Admin Trade Name Freq PRN Reason Stop Dose Admin Acetaminophen 500 mg 11/12/24 15:25 Acetaminophen 500 Mg Tablet PO 11/12/25 15:24 Q4H PRN Pain Al Hydrox/Mg Hydrox/Simethicone 30 ml 11/12/24 15:25 Mag Hydrox/Al Hydrox/Simeth 30 Ml Udc PO 11/12/25 15:24 Q4H PRN Indigestion Alprazolam 0.25 mg 11/12/24 14:59 Alprazolam 0.25 Mg Tablet PO 05/11/25 14:58 TID PRN anxiety Balsam Tenmile/[place] Oil 1 applic 11/12/24 21:00 11/13/24 08:04 Balsam Rebel/[place] Oil Oint 60 Gm Tube TOPICAL 11/12/25 20:59 1 applic BID KARLI Administration Bisacodyl 10 mg 11/12/24 15:25 Bisacodyl 10 Mg Supp.Rect AR 11/12/25 15:24 DAILY PRN Constipation Buspirone HCl 5 mg 11/12/24 22:00 11/13/24 14:03 Buspirone 5 Mg Tablet PO 11/12/25 21:59 5 mg BID@1400,2200 KARLI Administration Buspirone HCl 10 mg 11/13/24 09:00 11/13/24 08:04 Buspirone 10 Mg Tablet PO 11/13/25 08:59 10 mg QAM KARLI Administration Carvedilol 25 mg 11/12/24 17:00 11/13/24 08:03 Carvedilol 25 Mg Tablet PO 11/12/25 16:59 25 mg BID.WITH.MEALS KARLI Administration Cephalexin HCl 500 mg 11/12/24 22:00 11/13/24 14:03 Cephalexin 500 Mg Capsule PO 11/17/24 14:01 500 mg TID KARLI Administration Cyclobenzaprine HCl 10 mg 11/12/24 14:59 11/13/24 08:03 Cyclobenzaprine 10 Mg Tablet PO 11/12/25 14:58 10 mg TID PRN Administration back spasms Docusate Sodium 283 mg 11/12/24 15:25 Docusate Enema 283 Mg/5 Ml Enema AR 11/12/25 15:24 DAILY PRN Constipation Docusate Sodium 100 mg 11/12/24 15:25 Docusate 100 Mg Capsule PO 11/12/25 15:24 BID PRN Constipation Furosemide 20 mg 11/12/24 16:00 11/13/24 08:03 Furosemide 20 Mg Tablet PO 11/12/25 15:59 20 mg BID@0800,1600 KARLI Administration Lactulose 30 gm 11/12/24 15:25 Lactulose 20 Gm/30 Ml Udc PO 11/12/25 15:24 DAILY PRN Constipation Losartan Potassium 50 mg 11/13/24 09:00 11/13/24 08:04 Losartan 50 Mg Tablet PO 11/13/25 08:59 50 mg QAM KARLI Administration Oxycodone HCl 5 mg 11/12/24 14:59 Oxycodone Ir 5 Mg Tablet PO Q4H PRN pain (scale score 7-10) Prednisone 40 mg 11/12/24 15:00 11/13/24 08:03 Prednisone 10 Mg Tablet PO 11/24/24 14:59 40 mg DAILY KARLI Administration Taper Sennosides 17.2 mg 11/13/24 12:00 Sennosides 8.6 Mg Tablet PO 11/13/25 11:59 DAILY@12 PRN If no BM in 2 days Sodium Chloride 1 gm 11/12/24 18:00 11/13/24 14:03 Sodium Chloride 1 Gm Tablet PO 11/12/25 17:59 1 gm QID KARLI Administration Sodium Chloride 0 ml 11/12/24 15:25 Sodium Chloride 0.9 % 10 Ml Syringe IV-PUSH 11/12/25 15:24 PRN PRN Flush Sodium Chloride 10 ml 11/12/24 22:00 11/13/24 14:05 Sodium Chloride 0.9 % 10 Ml Syringe IV-PUSH 11/12/25 21:59 10 ml Q8H KARLI Administration Tamsulosin HCl 0.4 mg 11/13/24 09:00 11/13/24 08:03 Tamsulosin 0.4 Mg Cap.Er.24h PO 11/13/25 08:59 0.4 mg QAM KARLI Administration Venlafaxine HCl 75 mg 11/12/24 22:00 11/13/24 14:03 Venlafaxine 75 Mg Tablet PO 11/12/25 21:59 75 mg TID KARLI Administration Exam Physical Exam Vital Signs: Temp Pulse Resp BP Pulse Ox O2 Del Method 98.4 F 61 20 128/63 96 Room Air 11/13/24 14:10 11/13/24 14:10 11/13/24 14:10 11/13/24 14:10 11/13/24 14:10 11/13/24 14:10 Narrative: CONST- alert, in bed, elderly male HEAD- normocephalic and atraumatic EENT- sclera nonicteric and conjunctiva nonerythemic, moist oral mucosa, pharynxnot visualized NECK- supple, no cervical lymphadenopathy CARDIAC- RRR no abnormal heart tones PULM- diminished without wheeze or rhonchi, RA, no accessory muscle use or coughnoted ABD- S/NT, NABS, round EXTREM- no edema BLE, calves nontender SKIN- W/D, good turgor, surgical dressing in place site not seen MS- MAEx4 spontaneously with equal strength NEURO- A&Ox2, speech clear and tongue midline, equal facial symmetry PSYCH-mood and behavior appropriate Results - Hospitalist Consult Lab Results Labs: Laboratory Results - last 72 hr 11/13/24 11:10: Corrected WBC 10.5, Uncorrected WBC Count 10.5, RBC 3.72 L, Hgb 13.1, Hct 38.2 L, MCV 102.6 H, MCH 35.1, MCHC 34.3, RDW 15.8 H, Plt Count 197, MPV 8.0, Neut % (Auto) 80.2, Lymph % (Auto) 7.0, [place] % (Auto) 12.2, Eos % (Auto) 0.3, Baso % (Auto) 0.3, Nucleat RBC Rel Count 0.2, Neut # (Auto) 8.4 H, Lymph # (Auto) 0.7 L, [place] # (Auto) 1.3 H, Eos # (Auto) 0.0, Baso # (Auto) 0.0, PHA Creatinine Clear 81.05, Sodium 136, Potassium 3.7, Chloride 102, Carbon Dioxide 26.1, Anion Gap 11.6, BUN 19, Creatinine 0.74, Est GFR (CKD-EPI) > 60.0,Glucose 110 H, Calcium 8.1 L, Total Bilirubin 0.7, AST 28, ALT 45, Alkaline Phosphatase 44, Total Protein 5.9 L, Albumin 3.5, Globulin 2.4, Albumin/GlobulinRatio 1.5, Prealbumin 22.9 Assessment & Plan Assessment/Plan (1) JULI on CPAP: (2) Hypertension: (3) Depression: (4) BPH (benign prostatic hyperplasia): Plan Cervical myelopathy s/p C3-6 fusion 11/04/24 - Further plan of care per PMR team for rehabilitative therapy, pain control andbowel regimen, surgical wound care, DVT prophylaxis - Cephalexin postoperative, prednisone postop - Follow-up with ENT outpatient. Continue to monitor for any airway complications Chronic conditions 1. Hypertension?carvedilol, furosemide, losartan. BP reviewed and controlled 2. Depression/anxiety?venlafaxine, BuSpar 3. BPH?tamsulosin, monitor for retention 4. JULI on CPAP Thank you for consulting us to see this pt. I will be off service starting this evening. Case will be handled by one of my partners if needed. Pt is fairly stable at this time. We will follow pt on an as needed basis. Please call or alert hospitalist if pt develops any signs or symptoms that may require medical evaluation and or intervention. Please arrange for pt after discharge follow up appts with PCP and other specialists. I may or may not have addressed all of patient symptoms, abnormal labs and imaging during this hospitalization. Please ask patient to ask PCP and out patient providers to obtain [facility] record entirely to follow up on illnesses, symptoms, abnormal findings that I have and have not addressed duringthis encounter and hospitalization in out patient setting. Documented By: Juliane Haji APRN 10/20 01/12 1603 Signed By: <Electronically signed by ALDEN Haji> 11/13/24 1721 <Electronically signed by Nirav Barboza MD> 11/14/24 1516 [facility] Work Phone: [phone]) [phone] [place] [id number] Hospitalist Consult Note Signed Patient: Michael Vaughn MR#: [id number] : 1950 Acct:[id number] Age/Sex: 74 / M Adm Date: 5 Loc: Room: [address] [place] [address] Type: ADM IN Attending Dr: Sea Cevallos MD Copies to: MD Juliane Winn APRN Rafik Massouh, MD Sherri M Shively, BRADEN-C~ HPI DATE OF CONSULTATION: 11/13/24 REQUESTING PROVIDER: Sea Cevallos Consult Narrative Reason for Consult: hypertension HPI: 74-year-old male past medical history significant for hypertension, JULI on CPAP,depression/ anxiety, history CVA, alcohol abuse, tobacco use. The patient initially presented to the hospital November 04 for elective C3-6 fusion The patient had history of severe gait ataxia falls and dexterity issues. MRI demonstrated cervical stenosis C4-5 and C5-6 consistent with myelopathy symptoms. Postoperativelythe patient developed stridor and was reintubated, treated with steroids and diuresis, and eventually extubated November 10. CT soft tissue neck demonstrated concerns for laryngeal fluid collection/abscess and laryngeal edema though difficult to assess with ET tube in place, seen by ENT services with recommendations for fiberoptic exam post extubation most probably would to be done in the outpatientsetting. He was managed by pulmonology/critical care medicine while in the ICU. Hospitalist team isnow consulted for ongoing management of hypertension and diabetes. Patient seen and examined. He endorses minimal postoperative pain. Denies chest pain or palpitations. No cough, dyspnea, or pain with inspiration. No abdominal pain or indigestion, constipation or diarrhea, nausea or vomiting. Nodysuria or retention. No headache or dizziness. No fevers or chills. Review of Systems Review of Systems All other systems reviewed & are negative unless noted below or in HPI [facility] Medical History (Updated 11/13/24 @ 17:20 by Juliane Haji APRN) BPH (benign prostatic hyperplasia) Cervical myelopathy Anxiety Head injury from fall Smoker JULI on CPAP Acute confusion Primary osteoarthritis of right hip Primary osteoarthritis of left hip Poor balance Lymphadenitis Sleep apnea Hypertension Depression CVA (cerebral vascular accident) Left hip pain Surgical History History of right inguinal hernia repair History of carpal tunnel release bilateral 2020 Hx of total knee arthroplasty right knee, Dr. Day 02/04/24 Family History Father Prostate cancer Mother History of TB (tuberculosis) Social History Smoking Status: Former smoker Tobacco Type: cigarettes Substance Use Type: None Meds Medications and Allergies Allergies No Known Allergies Allergy (Verified 11/04/24 06:07) Home Medications alprazolam 0.25 mg tablet (Xanax) 0.25 mg PO TID PRN anxiety 09/07/24 [History Confirmed 11/12/24] buspirone 5 mg tablet 10 mg PO QAM 09/07/24 [History Confirmed 11/12/24] carvedilol 25 mg tablet 25 mg PO BID.WITH.MEALS 30 days #60 tabs 10/01/24 [Rx Confirmed 11/12/24] furosemide 20 mg tablet (Lasix) 20 mg PO BID 10/21/24 [History Confirmed 11/12/24] losartan 50 mg tablet 50 mg PO QAM 10/21/24 [History Confirmed 11/12/24] sodium chloride 1,000 mg soluble tablet 1,000 mg PO QID 10/21/24 [History Confirmed 11/12/24] tamsulosin 0.4 mg capsule 0.4 mg PO QAM 10/21/24 [History Confirmed 11/12/24] venlafaxine 75 mg tablet 75 mg PO TID 11/04/24 [History Confirmed 11/12/24] buspirone 5 mg tablet 5 mg PO 11/12/24 [History Confirmed 11/12/24] cephalexin 500 mg capsule 500 mg PO TID #15 caps 11/12/24 [Rx Confirmed 11/12/24] cyclobenzaprine 10 mg tablet 10 mg PO TID PRN back spasms #50 tabs 11/12/24 [Rx Confirmed 11/12/24] oxycodone 5 mg tablet 5 mg PO Q4H PRN pain (scale score 7-10) 11/12/24 [History Confirmed 11/12/24] prednisone 10 mg tablets in a dose pack 10 mg PO PER PKG DIR #30 tabs 11/12/24 [Rx Confirmed 11/12/24] Active Medications: Active Medications Generic Name Dose Route Start Last Admin Trade Name [place] PRN Reason Stop Dose Admin Acetaminophen 500 mg 11/12/24 15:25 Acetaminophen 500 Mg Tablet PO 11/12/25 15:24 Q4H PRN Pain Al Hydrox/Mg Hydrox/Simethicone 30 ml 11/12/24 15:25 Mag Hydrox/Al Hydrox/Simeth 30 Ml Udc PO 11/12/25 15:24 Q4H PRN Indigestion Alprazolam 0.25 mg 11/12/24 14:59 Alprazolam 0.25 Mg Tablet PO 05/11/25 14:58 TID PRN anxiety Balsam Rebel/[place] Oil 1 applic 11/12/24 21:00 11/13/24 08:04 Balsam Tenmile/[place] Oil Oint 60 Gm Tube TOPICAL 11/12/25 20:59 1 applic BID KARLI Administration Bisacodyl 10 mg 11/12/24 15:25 Bisacodyl 10 Mg Supp.Rect AR 11/12/25 15:24 DAILY PRN Constipation Buspirone HCl 5 mg 11/12/24 22:00 11/13/24 14:03 Buspirone 5 Mg Tablet PO 11/12/25 21:59 5 mg BID@1400,2200 KARLI Administration Buspirone HCl 10 mg 11/13/24 09:00 11/13/24 08:04 Buspirone 10 Mg Tablet PO 11/13/25 08:59 10 mg QAM KARLI Administration Carvedilol 25 mg 11/12/24 17:00 11/13/24 08:03 Carvedilol 25 Mg Tablet PO 11/12/25 16:59 25 mg BID.WITH.MEALS KARLI Administration Cephalexin HCl 500 mg 11/12/24 22:00 11/13/24 14:03 Cephalexin 500 Mg Capsule PO 11/17/24 14:01 500 mg TID KARLI Administration Cyclobenzaprine HCl 10 mg 11/12/24 14:59 11/13/24 08:03 Cyclobenzaprine 10 Mg Tablet PO 11/12/25 14:58 10 mg TID PRN Administration back spasms Docusate Sodium 283 mg 11/12/24 15:25 Docusate Enema 283 Mg/5 Ml Enema AR 11/12/25 15:24 DAILY PRN Constipation Docusate Sodium 100 mg 11/12/24 15:25 Docusate 100 Mg Capsule PO 11/12/25 15:24 BID PRN Constipation Furosemide 20 mg 11/12/24 16:00 11/13/24 08:03 Furosemide 20 Mg Tablet PO 11/12/25 15:59 20 mg BID@0800,1600 KARLI Administration Lactulose 30 gm 11/12/24 15:25 Lactulose 20 Gm/30 Ml Udc PO 11/12/25 15:24 DAILY PRN Constipation Losartan Potassium 50 mg 11/13/24 09:00 11/13/24 08:04 Losartan 50 Mg Tablet PO 11/13/25 08:59 50 mg QAM KARLI Administration Oxycodone HCl 5 mg 11/12/24 14:59 Oxycodone Ir 5 Mg Tablet PO Q4H PRN pain (scale score 7-10) Prednisone 40 mg 11/12/24 15:00 11/13/24 08:03 Prednisone 10 Mg Tablet PO 11/24/24 14:59 40 mg DAILY KARLI Administration Taper Sennosides 17.2 mg 11/13/24 12:00 Sennosides 8.6 Mg Tablet PO 11/13/25 11:59 DAILY@12 PRN If no BM in 2 days Sodium Chloride 1 gm 11/12/24 18:00 11/13/24 14:03 Sodium Chloride 1 Gm Tablet PO 11/12/25 17:59 1 gm QID KARLI Administration Sodium Chloride 0 ml 11/12/24 15:25 Sodium Chloride 0.9 % 10 Ml Syringe IV-PUSH 11/12/25 15:24 PRN PRN Flush Sodium Chloride 10 ml 11/12/24 22:00 11/13/24 14:05 Sodium Chloride 0.9 % 10 Ml Syringe IV-PUSH 11/12/25 21:59 10 ml Q8H KARLI Administration Tamsulosin HCl 0.4 mg 11/13/24 09:00 11/13/24 08:03 Tamsulosin 0.4 Mg Cap.Er.24h PO 11/13/25 08:59 0.4 mg QAM KARLI Administration Venlafaxine HCl 75 mg 11/12/24 22:00 11/13/24 14:03 Venlafaxine 75 Mg Tablet PO 11/12/25 21:59 75 mg TID KARLI Administration Exam Physical Exam Vital Signs: Temp Pulse Resp BP Pulse Ox O2 Del Method 98.4 F 61 20 128/63 96 Room Air 11/13/24 14:10 11/13/24 14:10 11/13/24 14:10 11/13/24 14:10 11/13/24 14:10 11/13/24 14:10 Narrative: CONST- alert, in bed, elderly male HEAD- normocephalic and atraumatic EENT- sclera nonicteric and conjunctiva nonerythemic, moist oral mucosa, pharynxnot visualized NECK- supple, no cervical lymphadenopathy CARDIAC- RRR no abnormal heart tones PULM- diminished without wheeze or rhonchi, RA, no accessory muscle use or coughnoted ABD- S/NT, NABS, round EXTREM- no edema BLE, calves nontender SKIN- W/D, good turgor, surgical dressing in place site not seen MS- MAEx4 spontaneously with equal strength NEURO- A&Ox2, speech clear and tongue midline, equal facial symmetry PSYCH-mood and behavior appropriate Results - Hospitalist Consult Lab Results Labs: Laboratory Results - last 72 hr 11/13/24 11:10: Corrected WBC 10.5, Uncorrected WBC Count 10.5, RBC 3.72 L, Hgb 13.1, Hct 38.2 L, MCV 102.6 H, MCH 35.1, MCHC 34.3, RDW 15.8 H, Plt Count 197, MPV 8.0, Neut % (Auto) 80.2, Lymph % (Auto) 7.0, [place] % (Auto) 12.2, Eos % (Auto) 0.3, Baso % (Auto) 0.3, Nucleat RBC Rel Count 0.2, Neut # (Auto) 8.4 H, Lymph # (Auto) 0.7 L, [place] # (Auto) 1.3 H, Eos # (Auto) 0.0, Baso # (Auto) 0.0, PHA Creatinine Clear 81.05, Sodium 136, Potassium 3.7, Chloride 102, Carbon Dioxide 26.1, Anion Gap 11.6, BUN 19, Creatinine 0.74, Est GFR (CKD-EPI) > 60.0,Glucose 110 H, Calcium 8.1 L, Total Bilirubin 0.7, AST 28, ALT 45, Alkaline Phosphatase 44, Total Protein 5.9 L, Albumin 3.5, Globulin 2.4, Albumin/ GlobulinRatio 1.5, Prealbumin 22.9 Assessment & Plan Assessment/Plan (1) JULI on CPAP: (2) Hypertension: (3) Depression: (4) BPH (benign prostatic hyperplasia): Plan Cervical myelopathy s/p C3-6 fusion 11/04/24 - Further plan of care per PMR team for rehabilitative therapy, pain control andbowel regimen, surgical wound care, DVT prophylaxis - Cephalexin postoperative, prednisone postop - Follow-up with ENT outpatient. Continue to monitor for any airway complications Chronic conditions 1. Hypertension?carvedilol, furosemide, losartan. BP reviewed and controlled 2. Depression/anxiety?venlafaxine, BuSpar 3. BPH?tamsulosin, monitor for retention 4. JULI on CPAP Thank you for consulting us to see this pt. I will be off service starting this evening. Case will be handled by one of my partners if needed. Pt is fairly stable at this time. We will follow pt on an as needed basis. Please call or alert hospitalist if pt develops any signs or symptoms that may require medical evaluation and or intervention. Please arrange for pt after discharge follow up appts with PCP and other specialists. I may or may not have addressed all of patient symptoms, abnormal labs and imaging during this hospitalization. Please ask patient to ask PCP and out patient providers to obtain [facility] record entirely to followup on illnesses, symptoms, abnormal findings that I have and have not addressed duringthis encounter and hospitalization in out patient setting. Documented By: Juliane Haji APRN 10/20 01/12 1603 Signed By: 11/13/24 1721 11/14/24 1515 [facility]04-27-2025 Progress note Author Reyes Bridges [facility] Note Date/Time November 14, 2024 9:4 3am [facility] [address] [place] [address] Neurosurgery Progress Note Signed Patient: Michael Vaughn MR#: [id number] : 1950 Acct:[id number] Age/Sex: 74 / M Adm Date: 5 Loc: Room: [address] [place] [address] Type: ADM IN Attending Dr: Sea Cevallos MD Copies to: ~ Date of Service: 11/14/2024 Subjective Subjective HPI: Patient was seen and examined at bedside in morning rounds this morning. He states that he feels drastically improved compared to what he was previously. He states that he is doing really well and is optimistic be discharged hopefullythis week. Exam Physical Exam Vital Signs: Temp Pulse Resp BP Pulse Ox O2 Del Method 98.9 F 62 20 161/87 H 98 Room Air 11/14/24 06:10 11/14/24 08:25 11/14/24 08:25 11/14/24 08:25 11/14/24 08:25 11/14/24 08:25 Narrative: Patient alert and oriented by 3 Deltoid bicep tricep and accordion repairer 5/5 bilateral Upper extremity sensory normal to light touch throughout Iliopsoas hamstring quadricep anterior tibial gastrocnemius 5/5 bilateral lower extremities Lower extremity sensory normal light touch throughout Objective Lab Results Most Recent Labs: 11/13/24 11:10: Corrected WBC 10.5, Uncorrected WBC Count 10.5, RBC 3.72 L, Hgb 13.1, Hct 38.2 L, MCV 102.6 H, MCH 35.1, MCHC 34.3, RDW 15.8 H, Plt Count 197, MPV 8.0, Neut % (Auto) 80.2, Lymph % (Auto) 7.0, [place] % (Auto) 12.2, Eos % (Auto) 0.3, Baso % (Auto) 0.3, Nucleat RBC Rel Count 0.2, Neut # (Auto) 8.4 H, Lymph # (Auto) 0.7 L, [place] # (Auto) 1.3 H, Eos # (Auto) 0.0, Baso # (Auto) 0.0, PHA Creatinine Clear 81.05, Sodium 136, Potassium 3.7, Chloride 102, Carbon Dioxide 26.1, Anion Gap 11.6, BUN 19, Creatinine 0.74, Est GFR (CKD-EPI) > 60.0,Glucose 110 H, Calcium 8.1 L, Total Bilirubin 0.7, AST 28, ALT 45, Alkaline Phosphatase 44, Total Protein 5.9 L, Albumin 3.5, Globulin 2.4, Albumin/GlobulinRatio 1.5, Prealbumin 22.9 Assessment/Plan Assessment/Plan (1) JULI on CPAP: (2) Hypertension: (3) Depression: (4) BPH (benign prostatic hyperplasia): Plan In summary as patient is a 74-year-old male status post C3-C6 posterior cervicalfusion with laminectomy secondary to having cervical spondylotic myelopathy. At this time he is progressing well from rehabilitation standpoint. I discussedwith him to participate every day to make the best of his stay and that he will be discharged at the discretion of the inpatient PM&R team. I discussed staple removal and how he will be 2 weeks out from surgery on , November 18 at which point the hayde can be removed then. However he is discharged prior to that the hayde should be removed just prior to discharge. All questions were answered to the satisfaction as patient is in agreement with the above plan and expresses gratitude for thing done and tells me that he is doing much better. Documented By: Reyes Bridges DO 11/14/24 0941 Signed By: <Electronically signed by Reyes Bridges DO> 11/14/24 0943 [facility] Work Phone: 1([phone]) 219-813204-27-2025 [place] [address] Neurosurgery Progress Note Signed Patient: Michael Vaughn MR#: [id number] : 1950 Acct:[id number] Age/Sex: 74 / M Adm Date: 5 Loc: Room: [address] [place] [address] Type: ADM IN Attending Dr: Sea Cevallos MD Copies to: ~ Date of Service: 11/14/2024 Subjective Subjective HPI: Patient was seen and examined at bedside in morning rounds this morning. He states that he feels drastically improved compared to what he was previously. He states that he is doing really well and isoptimistic be discharged hopefullythis week. Exam Physical Exam Vital Signs: Temp Pulse Resp BP Pulse Ox O2 Del Method 98.9 F 62 20 161/87 H 98 Room Air 11/14/24 06:10 11/14/24 08:25 11/14/24 08:25 11/14/24 08:25 11/14/24 08:25 11/14/24 08:25 Narrative: Patient alert and oriented by 3 Deltoid bicep tricep and accordion repairer 5/5 bilateral Upper extremity sensory normal to light touch throughout Iliopsoas hamstring quadricep anterior tibial gastrocnemius 5/5 bilateral lower extremities Lower extremity sensory normal light touch throughout Objective Lab Results Most Recent Labs: 11/13/24 11:10: Corrected WBC 10.5, Uncorrected WBC Count 10.5, RBC 3.72 L, Hgb 13.1, Hct 38.2 L, MCV 102.6 H, MCH 35.1, MCHC 34.3, RDW 15.8 H, Plt Count 197, MPV 8.0, Neut % (Auto) 80.2, Lymph % (Auto) 7.0, [place] % (Auto) 12.2, Eos % (Auto) 0.3, Baso % (Auto) 0.3, Nucleat RBC Rel Count 0.2, Neut # (Auto) 8.4 H, Lymph # (Auto) 0.7 L, [place] # (Auto) 1.3 H, Eos # (Auto) 0.0, Baso # (Auto) 0.0, PHA Creatinine Clear 81.05, Sodium 136, Potassium 3.7, Chloride 102, Carbon Dioxide 26.1, Anion Gap 11.6, BUN 19, Creatinine 0.74, Est GFR (CKD-EPI) > 60.0,Glucose 110 H, Calcium 8.1 L, Total Bilirubin 0.7, AST 28, ALT 45, Alkaline Phosphatase 44, Total Protein 5.9 L, Albumin 3.5, Globulin 2.4, Albumin/ GlobulinRatio 1.5, Prealbumin 22.9 Assessment/Plan Assessment/Plan (1) JULI on CPAP: (2) Hypertension: (3) Depression: (4) BPH (benign prostatic hyperplasia): Plan In summary as patient is a 74-year-old male status post C3-C6 posterior cervicalfusion with laminectomy secondary to having cervical spondylotic myelopathy. At this time he is progressing well from rehabilitation standpoint. I discussedwith him to participate every day to make the best of his stay and that he will be discharged at the discretion of the inpatient PM&R team. I discussed staple removal and how he will be 2 weeks out from surgery on , November 18 at which point the hayde can be removed then. However he is discharged prior to thatthe hayde should be removed just prior to discharge. All questions were answered to the satisfaction as patient is in agreement with the above plan and expresses gratitude for thing done and tells me that he is doing much better. Documented By: Reyes Bridges DO 11/14/2441 Signed By: 11/14/24 0943 [facility]04-25-2025 Progress note Author Reyes Bridges [facility] Note Date/Time November 12, 2024 8:5 4am [facility] [address] [place] [address] Neurosurgery Progress Note Signed Patient: Michael Vaughn MR#: [id number] : 1950 Acct:[id number] Age/Sex: 74 / M Adm Date: 5 Loc: Room: 1J1303-6 Type: ADM IN Attending Dr: Reyes Bridges DO Copies to: ~ Date of Service: 11/12/2024 Subjective Subjective HPI: Patient was seen and examined at bedside in morning rounds this morning. He states that he feels like he is doing better and is progressing well. We discussed mobilization with therapy and consulting physiatry to help with discharge planning. He has no new chief complaint at this time aside from the fact that he cannot take insulin as it makes him hallucinate for which I did tell him we can consult the hospitalist to help with this as well as his hypertension. Exam Physical Exam Vital Signs: Temp Pulse Resp BP Pulse Ox O2 Del Method O2 Flow Rate 98.1 F 63 16 143/74 H 95 Room Air 2 11/12/24 08:00 11/12/24 08:00 11/12/24 08:00 11/12/24 08:00 11/12/24 08:00 11/12/24 08:00 11/11/24 11:00 FiO2 40 11/10/24 10:15 Narrative: Patient alert and oriented by 3 Deltoid bicep tricep and accordion repairer 5/5 bilateral; B/L intrinsic hands 4/5 Upper extremity sensory normal to light touch throughout Iliopsoas hamstring quadricep anterior tibial gastrocnemius 5/5 bilateral lower extremities Lower extremity sensory normal light touch throughout Gait grossly normal Objective Lab Results Most Recent Labs: 11/11/24 18:47: POC Glucose 113 11/11/24 11:29: POC Glucose 102, POC Glucose Comment Glu2: cleaned meter 11/11/24 09:04: Corrected WBC 11.5 H, Uncorrected WBC Count 11.5 H, RBC 3.95, Hgb 13.8, Hct 40.5, MCV 102.6 H, MCH 35.0, MCHC 34.1, RDW 16.1 H, Plt Count 198,MPV 8.1, Neut % (Auto) 83.0, Lymph % (Auto) 4.3, [place] % (Auto) 12.4, Eos % (Auto) 0.0, Baso % (Auto) 0.3, Nucleat RBC Rel Count 0.1, Neut # (Auto) 9.5 H, Lymph # (Auto) 0.5 L, [place] # (Auto) 1.4 H, Eos # (Auto) 0.0, Baso # (Auto) 0.0 Assessment/Plan Assessment/Plan (1) Stridor: (2) Acute respiratory failure with hypoxia and hypercapnia: (3) Difficult airway for intubation: (4) JULI on CPAP: (5) Cervical myelopathy: (6) Alcohol abuse: Plan In summary this patient is a 74-year-old male postoperative day 8 from posteriorcervical laminectomies and fusion from C3-C6 secondary to having cervical spondylotic myelopathy. At this time he is progressing well we discussed the neck step's of ambulating with physical therapy as well as consulting physiatry for guidance with discharge. We discussed his concerns of taking insulin and how it makes him hallucinate and therefore we will endorse the help of that our hospitalists to help guide whether Pharmacological treatment we can use for his diabetes as the insulin is causing him hallucinations. We also will help consult him to help with his blood pressure. He expresses gratitude for everything rendered thus far and appreciation. We will move towards discharge. Documented By: Reyes Bridgse DO 11/12/24 0852 Signed By: <Electronically signed by Reyes Bridges DO> 11/12/24 0854 [facility] Work Phone: 1([phone]) 655-535204-25-2025 [place] [address] Neurosurgery Progress Note Signed Patient: Michael Vaughn MR#: [id number] : 1950 Acct:[id number] Age/Sex: 74 / M Adm Date: 5 Loc: 4 Room: [id number] Type: ADM IN Attending Dr: Reyes Bridges DO Copies to: ~ Date of Service: 11/12/2024 Subjective Subjective HPI: Patient was seen and examined at bedside in morning rounds this morning. He states that he feels like he is doing better and is progressing well. We discussed mobilization with therapy and consultingphysiatry to help with discharge planning. He has no new chief complaint at this time aside from the fact that he cannot take insulin as it makes him hallucinate for which I did tell him we can consult the hospitalist to help with this as well as his hypertension. Exam Physical Exam Vital Signs: Temp Pulse Resp BP Pulse Ox O2 Del Method O2 Flow Rate 98.1 F 63 16 143/74 H 95 Room Air 2 11/12/24 08:00 11/12/24 08:00 11/12/24 08:00 11/12/24 08:00 11/12/24 08:00 11/12/24 08:00 11/11/24 11:00 FiO2 40 11/10/24 10:15 Narrative: Patient alert and oriented by 3 Deltoid bicep tricep and accordion repairer 5/5 bilateral; B/L intrinsic hands 4/5 Upper extremity sensory normal to light touch throughout Iliopsoas hamstring quadricep anterior tibial gastrocnemius 5/5 bilateral lower extremities Lower extremity sensory normal light touch throughout Gait grossly normal Objective Lab Results Most Recent Labs: 11/11/24 18:47: POC Glucose 113 11/11/24 11:29: POC Glucose 102, POC Glucose Comment Glu2: cleaned meter 11/11/24 09:04: Corrected WBC 11.5 H, Uncorrected WBC Count 11.5 H, RBC 3.95, Hgb 13.8, Hct 40.5, MCV 102.6 H, MCH 35.0, MCHC 34.1, RDW 16.1 H, Plt Count 198,MPV 8.1, Neut % (Auto) 83.0, Lymph % (Auto) 4.3, [place] % (Auto) 12.4, Eos % (Auto) 0.0, Baso % (Auto) 0.3, Nucleat RBC Rel Count 0.1, Neut # (Auto) 9.5 H, Lymph # (Auto) 0.5 L, [place] # (Auto) 1.4 H, Eos # (Auto) 0.0, Baso # (Auto) 0.0 Assessment/Plan Assessment/Plan (1) Stridor: (2) Acute respiratory failure with hypoxia and hypercapnia: (3) Difficult airway for intubation: (4) JULI on CPAP: (5) Cervical myelopathy: (6) Alcohol abuse: Plan In summary this patient is a 74-year-old male postoperative day 8 from posteriorcervical laminectomies and fusion from C3-C6 secondary to having cervical spondylotic myelopathy. At this time he is progressing well we discussed the neck step's of ambulating with physical therapy as well as consulting physiatry for guidance with discharge. We discussed his concerns of taking insulin and how it makes him hallucinate and therefore we will endorse the help of that our hospitalists to help guide whether Pharmacological treatment we can use for his diabetes as the insulin is causing him hallucinations. We also will help consult him to help with his blood pressure. He expresses gratitude for everything rendered thus far and appreciation. We will move towards discharge. Documented By: Reyes Bridges DO 11/12/24 0852 Signed By: 11/12/24 0854 [facility]04-24-2025 Progress note Author Marciano Mar [facility] Note Date/Time November 11, 2024 7:3 2pm [facility] [address] [place] [address] Pulmonology Progress Note Signed Patient: Michael Vaughn MR#: [id number] : 1950 Acct:[id number] Age/Sex: 74 / M Adm Date: 5 Loc: Room: [id number] Type: ADM IN Attending Dr: Reyes Bridges DO Copies to: ~ Date of Service: 11/11/2024 Subjective Subjective Narrative: Patient was extubated yesterday and is doing well clinically. He was given an additional dose of diuretic today and oxygen requirements have decreased with patient now on room air. He denies respiratory complaints and has passed the swallow evaluation. Exam Physical Exam Vital Signs: Temp Pulse Resp BP Pulse Ox O2 Del Method O2 Flow Rate 98.3 F 68 22 177/91 H 94 L Nasal Cannula 4 11/11/24 04:00 04/24/25 07:00 11/11/24 07:00 11/11/24 07:00 11/11/24 07:00 11/11/24 07:00 11/11/24 07:00 FiO2 40 11/10/24 10:15 Const General: cooperative Nutritional Appearance: overweight Orientation: alert and awake HEENT Head: normal to inspection, normocephalic and atraumatic Ears: external ears normal Nose: external nose normal Face and sinus: normal facial exam Teeth and gingiva: fair dentition Eyes Eyelids: eyelids normal Neck Neck: normal visual inspection (Cervical collar in place) and no lymphadenopathy Chest Chest palpation & inspection: normal inspection of the chest Resp Auscultation: clear to auscultation bilaterally, no rales, no rhonchi and no wheezes Cardio Rate: regular rate Rhythm: regular rhythm Heart Sounds: S1 normal, S2 normal, no gallops, no murmurs and no rubs GI Inspection: normal to inspection Palpation: soft and nontender Auscultation: hypoactive bowel sounds Rectal Exam: deferred General: deferred Skin General: no rashes or lesions noted (warm and dry) Extrem General: no pedal edema Objective Intake and Output I&O - Last 24 Hours: Intake & Output 11/10/24 11/11/24 11/11/24 23:59 07:59 15:59 Intake Total 100 / 561 100 / 100 Output Total 900 / 2875 600 / 600 Balance -800 / -2314 -500 / -500 Weight 77.3 kg Labs 11/11/24 09:04 11/11/24 04:55 Assessment/Plan Assessment/Plan (1) Stridor: (2) Acute respiratory failure with hypoxia and hypercapnia: (3) Difficult airway for intubation: (4) JULI on CPAP: (5) Cervical myelopathy: (6) Alcohol abuse: Plan Hospital day #7, postoperative day #7, extubated 11/10 status post cervical spine fusion and laminectomies in 74 yo M with supraglottic edema/swelling with superimposed JULI and possible EtOH withdrawal * Wean Decadron to off today * one more dose of diuretic given due to likely volume overload contributing to hypoxemia * Patient is stable for transfer to the floor * Pulmonary/critical care medicine will sign off when patient is transferred out of the ICU Documented By: Marciano Mar MD 5 0801 Signed By: <Electronically signed by MD Marciano Mar> 11/11/241931 [facility] Work Phone: 1(604) 187-962504-24-[address] [address] Pulmonology Progress Note Signed Patient: Michael Vaughn MR#: [id number] : 1950 Acct:[id number] Age/Sex: 74 / M Adm Date: 5 Loc: 4N Room: [address] [place] [address] Type: ADM IN Attending Dr: Reyes Bridges DO Copies to: ~ Date of Service: 11/11/2024 Subjective Subjective Narrative: Patient was extubated yesterday and is doing well clinically. He was given an additional dose of diuretic today and oxygen requirements have decreased with patient now on room air. He denies respiratory complaints and has passed the swallow evaluation. Exam Physical Exam Vital Signs: Temp Pulse Resp BP Pulse Ox O2 Del Method O2 Flow Rate 98.3 F 68 22 177/91 H 94 L Nasal Cannula 4 11/11/24 04:00 11/11/24 07:00 11/11/24 07:00 11/11/24 07:00 11/11/24 07:00 11/11/24 07:00 11/11/24 07:00 FiO2 40 11/10/24 10:15 Const General: cooperative Nutritional Appearance: overweight Orientation: alert and awake HEENT Head: normal to inspection, normocephalic and atraumatic Ears: external ears normal Nose: external nose normal Face and sinus: normal facial exam Teeth and gingiva: fair dentition Eyes Eyelids: eyelids normal Neck Neck: normal visual inspection (Cervical collar in place) and no lymphadenopathy Chest Chest palpation & inspection: normal inspection of the chest Resp Auscultation: clear to auscultation bilaterally, no rales, no rhonchi and no wheezes Cardio Rate: regular rate Rhythm: regular rhythm Heart Sounds: S1 normal, S2 normal, no gallops, no murmurs and no rubs GI Inspection: normal to inspection Palpation: soft and nontender Auscultation: hypoactive bowel sounds Rectal Exam: deferred General: deferred Skin General: no rashes or lesions noted (warm and dry) Extrem General: no pedal edema Objective Intake and Output I&O - Last 24 Hours: Intake & Output 11/10/24 11/11/24 11/11/24 23:59 07:59 15:59 Intake Total 100 / 561 100 / 100 Output Total 900 / 2875 600 / 600 Balance -800 / -2314 -500 / -500 Weight 77.3 kg Labs 11/11/24 09:04 11/11/24 04:55 Assessment/Plan Assessment/Plan (1) Stridor: (2) Acute respiratory failure with hypoxia and hypercapnia: (3) Difficult airway for intubation: (4) JULI on CPAP: (5) Cervical myelopathy: (6) Alcohol abuse: Plan Hospital day #7, postoperative day #7, extubated 11/10 status post cervical spine fusion and laminectomies in 74 yo M with supraglottic edema/swelling with superimposed JULI and possible EtOH withdrawal * Wean Decadron to off today * one more dose of diuretic given due to likely volume overload contributing to hypoxemia * Patient is stable for transfer to the floor * Pulmonary/critical care medicine will sign off when patient is transferred out of the ICU Documented By: Marciano Mar MD 5 0801 Signed By: 11/11/241931 [facility]04-24-2025 Progress note Author Reyes Bridges [facility] Note Date/Time November 11, 2024 12: 50pm [facility] [address] [place] [address] Neurosurgery Progress Note Signed Patient: Michael Vaughn MR#: [id number] : 1950 Acct:[id number] Age/Sex: 74 / M Adm Date: 5 Loc: Room: [address] [place] [address] Type: ADM IN Attending Dr: Reyes Bridges DO Copies to: ~ Date of Service: 11/11/2024 Subjective Subjective HPI: Patient was seen and examined at bedside on morning rounds this morning. He hassubsequently been extubated and has no new chief complaint at this time. He expresses his gratitude for all medical management this been done thus far as well as surgery. He feels like his symptoms are at baseline and strength is at baseline as well. Exam Physical Exam Vital Signs: Temp Pulse Resp BP Pulse Ox O2 Del Method O2 Flow Rate 98.4 F 62 20 139/75 94 L Nasal Cannula 2 11/11/24 12:00 11/11/24 12:00 11/11/24 12:00 11/11/24 12:00 11/11/24 12:00 11/11/24 12:00 11/11/24 12:00 FiO2 40 11/10/24 10:15 Narrative: Patient alert and oriented by 3 Deltoid bicep tricep and accordion repairer 5/5 bilateral; B/L intrinsic hands 4/5 Upper extremity sensory normal to light touch throughout Iliopsoas hamstring quadricep anterior tibial gastrocnemius 5/5 bilateral lower extremities Lower extremity sensory normal light touch throughout Gait grossly normal Objective Lab Results Most Recent Labs: 11/11/24 11:29: POC Glucose 102, POC Glucose Comment Glu2: cleaned meter 11/11/24 09:04: Corrected WBC 11.5 H, Uncorrected WBC Count 11.5 H, RBC 3.95, Hgb 13.8, Hct 40.5, MCV 102.6 H, MCH 35.0, MCHC 34.1, RDW 16.1 H, Plt Count 198,MPV 8.1, Neut % (Auto) 83.0, Lymph % (Auto) 4.3, [place] % (Auto) 12.4, Eos % (Auto) 0.0, Baso % (Auto) 0.3, Nucleat RBC Rel Count 0.1, Neut # (Auto) 9.5 H, Lymph # (Auto) 0.5 L, [place] # (Auto) 1.4 H, Eos # (Auto) 0.0, Baso # (Auto) 0.0 11/11/24 04:55: PHA Creatinine Clear 80.07, Sodium 134 L, Potassium 4.1, Chloride 99, Carbon Dioxide 26.5, Anion Gap 12.6, BUN 27 H, Creatinine 0.80, EstGFR (CKD-EPI) > 60.0, Glucose 91, Calcium 8.5 L 11/10/24 23:57: POC Glucose 106, POC Glucose Comment Glu2: cleaned meter 11/10/24 18:06: POC Glucose 106, POC Glucose Comment Glu2: cleaned meter Assessment/Plan Assessment/Plan (1) Stridor: (2) Acute respiratory failure with hypoxia and hypercapnia: (3) Difficult airway for intubation: (4) JULI on CPAP: (5) Cervical myelopathy: (6) Alcohol abuse: Plan Concerns patient is an 4-year-old male postop day 7 from C3-C6 posterior cervical fusion with laminectomy secondary to having cervical spondylotic myelopathy. At this point in time the patient's been extubated and sitting in a chair. He denies any new symptoms at this time. I discussed mobilization with physical therapy to which she states therapy did get him up and into the chair. I discussed the need to help prior likely benefit from posthospitalization rehab and will wait for the recommendations from physical therapy. I discussed with him that when he is cleared from a critical care perspective they can be transferred to the floors as well. All questions were answered to the satisfaction of this patient and he is in agreement with the above plan. Documented By: Reyes Bridges DO 11/11/24 1240 Signed By: <Electronically signed by Reyes Bridges DO> 11/11/24 1398 [facility] Work Phone: 1(903) 586-968004-24-2025 [place] [address] Neurosurgery Progress Note Signed Patient: Michael Vaughn MR#: [id number] : 1950 Acct:[id number] Age/Sex: 74 / M Adm Date: 5 Loc: Room: [address] [place] [address] Type: ADM IN Attending Dr: Reyes Bridges DO Copies to: ~ Date of Service: 11/11/2024 Subjective Subjective HPI: Patient was seen and examined at bedside on morning rounds this morning. He hassubsequently been extubated and has no new chief complaint at this time. He expresses his gratitude for all medical management this been done thus far as well as surgery. He feels like his symptoms are at baseline and strength is at baseline as well. Exam Physical Exam Vital Signs: Temp Pulse Resp BP Pulse Ox O2 Del Method O2 Flow Rate 98.4 F 62 20 139/75 94 L Nasal Cannula 2 11/11/24 12:00 11/11/24 12:00 11/11/24 12:11/11/24 12:00 11/11/24 12:00 11/11/24 12:00 11/11/24 12:00 FiO2 40 11/10/24 10:15 Narrative: Patient alert and oriented by 3 Deltoid bicep tricep and accordion repairer 5/5 bilateral; B/L intrinsic hands 4/5 Upper extremity sensory normal to light touch throughout Iliopsoas hamstring quadricep anterior tibial gastrocnemius 5/5 bilateral lower extremities Lower extremity sensory normal light touch throughout Gait grossly normal Objective Lab Results Most Recent Labs: 11/11/24 11:29: POC Glucose 102, POC Glucose Comment Glu2: cleaned meter 11/11/24 09:04: Corrected WBC 11.5 H, Uncorrected WBC Count 11.5 H, RBC 3.95, Hgb 13.8, Hct 40.5, MCV 102.6 H, MCH 35.0, MCHC 34.1, RDW 16.1 H, Plt Count 198,MPV 8.1, Neut % (Auto) 83.0, Lymph % (Auto) 4.3, [place] % (Auto) 12.4, Eos % (Auto) 0.0, Baso % (Auto) 0.3, Nucleat RBC Rel Count 0.1, Neut # (Auto) 9.5 H, Lymph # (Auto) 0.5 L, [place] # (Auto) 1.4 H, Eos # (Auto) 0.0, Baso # (Auto) 0.0 11/11/24 04:55: PHA Creatinine Clear 80.07, Sodium 134 L, Potassium 4.1, Chloride 99, Carbon Dioxide 26.5, Anion Gap 12.6, BUN 27 H, Creatinine 0.80, EstGFR (CKD-EPI) > 60.0, Glucose 91, Calcium 8.5 L 11/10/24 23:57: POC Glucose 106, POC Glucose Comment Glu2: cleaned meter 11/10/24 18:06: POC Glucose 106, POC Glucose Comment Glu2: cleaned meter Assessment/Plan Assessment/Plan (1) Stridor: (2) Acute respiratory failure with hypoxia and hypercapnia: (3) Difficult airway for intubation: (4) JULI on CPAP: (5) Cervical myelopathy: (6) Alcohol abuse: Plan Concerns patient is an 4-year-old male postop day 7 from C3-C6 posterior cervical fusion with laminectomy secondary to having cervical spondylotic myelopathy. At this point in time the patient's been extubated and sitting in a chair. He denies any new symptoms at this time. I discussed mobilization with physical therapy to which she states therapy did get him up and into the chair. I discussed the need to help prior likely benefit from posthospitalization rehab and will wait for the recommendations from physical therapy. I discussed with him that when he is cleared from a critical care perspective they can be transferred to the floors as well. All questions were answered to the satisfaction of this patient and he is in agreement with the above plan. Documented By: Reyes Bridges DO 11/11/24 1247 Signed By: 11/11/24 1250 [facility]04-23-2025 Progress note Author Marciano Mar [facility] Note Date/Time November 10, 2024 8:1 7pm [facility] [address] [place] [address] Pulmonology Progress Note Signed Patient: Michael Vaughn MR#: [id number] : 1950 Acct:[id number] Age/Sex: 74 / M Adm Date: 5 Loc: Room: [address] [place] [address] Type: ADM IN Attending Dr: Reyes Bridges DO Copies to: ~ Date of Service: 11/10/2024 Subjective Subjective Narrative: Patient continued to demonstrate leak around deflated cuff of 6.5 mm internal diameter endotracheal tube. Patient otherwise had been stable with no reported issues overnight per nursing staff. Exam Physical Exam Vital Signs: Temp Pulse Resp BP Pulse Ox O2 Del Method O2 Flow Rate 97.1 F L 51 L 16 142/81 H 94 L Mechanical Ventilation 2 11/10/24 08:00 11/10/24 08:00 11/10/24 08:00 11/10/24 08:00 11/10/24 08:00 11/10/24 08:00 11/04/24 16:00 FiO2 40 11/10/24 08:00 Const Nutritional Appearance: overweight Orientation: not alert and not awake HEENT Head: normal to inspection, normocephalic and atraumatic Ears: external ears normal Nose: external nose normal Face and sinus: normal facial exam Mouth: other (6.5 mm ID ET tube) Eyes Eyelids: eyelids normal Neck Neck: normal visual inspection (C-collar in place) and no lymphadenopathy Chest Chest palpation & inspection: normal inspection of the chest Resp Auscultation: clear to auscultation bilaterally, no rales, no rhonchi and no wheezes Cardio Rate: regular rate Rhythm: regular rhythm Heart Sounds: S1 normal, S2 normal, no gallops, no murmurs and no rubs GI Inspection: normal to inspection Palpation: soft and nontender Auscultation: hypoactive bowel sounds Rectal Exam: deferred General: deferred Skin General: no rashes or lesions noted (warm and dry) Extrem General: no pedal edema Objective Intake and Output I&O - Last 24 Hours: Intake & Output 11/09/24 11/10/24 11/10/24 23:59 07:59 15:59 Intake Total 200 / 1700 200 / 200 Output Total 400 / 1325 450 / 450 Balance -200 / 375 -250 / -250 Weight 77.1 kg Labs 11/09/24 08:00 11/10/24 04:59 Imaging and Cardiology Chest x-ray: Status: image reviewed by me Additional comments: Date of Service: 11/10/24 XR/XR chest 1V portable: intubated Plain film chest Single view HISTORY: Daily assessment of ventilated patient COMPARISON: 11/09/2024 FINDINGS: SUPPORT DEVICES: Stable POSTSURGICAL CHANGES: Stable HEART: Within normal limits PULMONARY RYAN: Within normal limits MEDIASTINUM: Unremarkable LUNGS AND PLEURA: Continued lung volumes with basilar parenchymal densities. Mild right hemidiaphragm elevation. BONY STRUCTURES: Intact ADDITIONAL FINDINGS None XR/XR chest 1V portable IMPRESSION: Stable chest Additional Results Results Comments: 11/10/24 04:52 ABG pH 7.45 ABG pCO2 36.0 ABG pO2 75.8 L ABG HCO3 24.7 ABG Total CO2 25.8 ABG O2 Saturation 95.3 ABG O2 Content 8.0 ABG Base Excess 1.1 /17/12 Assessment/Plan Assessment/Plan (1) Stridor: (2) Acute respiratory failure with hypoxia and hypercapnia: (3) Difficult airway for intubation: (4) JULI on CPAP: (5) Cervical myelopathy: (6) Alcohol abuse: Plan Hospital day #6, postoperative day #6 status post cervical spine fusion and laminectomies in 74 yo M with 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 Hx of ETOH abuse, smoker, chronic syncopal episodes and falls, dysphagia, worsening shortness of breath and dysphagia recently. * Patient continues to have air leak and was extubated today * Continue Decadron for today and if patient continues to do well we will start weaning steroids * Continue antibiotics and if patient is stable likely can discontinue antibiotics tomorrow * Swallow evaluation after extubation Documented By: Marciano Mar MD 5 [id number] Signed By: <Electronically signed by MD Marciano Mar> 11/10/242016 [facility] Work Phone: [phone]) 490-705904-23-2025 [place] [address] Pulmonology Progress Note Signed Patient: Michael Vaughn MR#: [id number] : 1950 Acct:[id number] Age/Sex: 74 / M Adm Date: 5 Loc: Room: [address] [place] [address] Type: ADM IN Attending Dr: Reyes Bridges DO Copies to: ~ Date of Service: 11/10/2024 Subjective Subjective Narrative: Patient continued to demonstrate leak around deflated cuff of 6.5 mm internal diameter endotrachealtube. Patient otherwise had been stable with no reported issues overnight per nursing staff. Exam Physical Exam Vital Signs: Temp Pulse Resp BP Pulse Ox O2 Del Method O2 Flow Rate 97.1 F L 51 L 16 142/81 H 94 L Mechanical Ventilation 2 11/10/24 08:00 11/10/24 08:00 11/10/24 08:00 11/10/24 08:00 11/10/24 08:00 11/10/24 08:00 11/04/24 16:00 FiO2 40 11/10/24 08:00 Const Nutritional Appearance: overweight Orientation: not alert and not awake HEENT Head: normal to inspection, normocephalic and atraumatic Ears: external ears normal Nose: external nose normal Face and sinus: normal facial exam Mouth: other (6.5 mm ID ET tube) Eyes Eyelids: eyelids normal Neck Neck: normal visual inspection (C-collar in place) and no lymphadenopathy Chest Chest palpation & inspection: normal inspection of the chest Resp Auscultation: clear to auscultation bilaterally, no rales, no rhonchi and no wheezes Cardio Rate: regular rate Rhythm: regular rhythm Heart Sounds: S1 normal, S2 normal, no gallops, no murmurs and no rubs GI Inspection: normal to inspection Palpation: soft and nontender Auscultation: hypoactive bowel sounds Rectal Exam: deferred General: deferred Skin General: no rashes or lesions noted (warm and dry) Extrem General: no pedal edema Objective Intake and Output I&O - Last 24 Hours: Intake & Output 11/09/24 11/10/24 11/10/24 23:59 07:59 15:59 Intake Total 200 / 1700 200 / 200 Output Total 400 / 1325 450 / 450 Balance -200 / 375 -250 / -250 Weight 77.1 kg Labs 11/09/24 08:00 11/10/24 04:59 Imaging and Cardiology Chest x-ray: Status: image reviewed by me Additional comments: Date of Service: 11/10/24 XR/XR chest 1V portable: intubated Plain film chest Single view HISTORY: Daily assessment of ventilated patient COMPARISON: 11/09/2024 FINDINGS: SUPPORT DEVICES: Stable POSTSURGICAL CHANGES: Stable HEART: Within normal limits PULMONARY RYAN: Within normal limits MEDIASTINUM: Unremarkable LUNGS AND PLEURA: Continued lung volumes with basilar parenchymal densities. Mild right hemidiaphragm elevation. BONY STRUCTURES: Intact ADDITIONAL FINDINGS None XR/XR chest 1V portable IMPRESSION: Stable chest Additional Results Results Comments: 11/10/24 04:52 ABG pH 7.45 ABG pCO2 36.0 ABG pO2 75.8 L ABG HCO3 24.7 ABG Total CO2 25.8 ABG O2 Saturation 95.3 ABG O2 Content 8.0 ABG Base Excess 1.1 16/500/30/5 Assessment/Plan Assessment/Plan (1) Stridor: (2) Acute respiratory failure with hypoxia and hypercapnia: (3) Difficult airway for intubation: (4) JULI on CPAP: (5) Cervical myelopathy: (6) Alcohol abuse: Plan Hospital day #6, postoperative day #6 status post cervical spine fusion and laminectomies in 74 yo M with 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 Hx of ETOH abuse, smoker, chronic syncopal episodes and falls, dysphagia, worsening shortness of breath and dysphagia recently. * Patient continues to have air leak and was extubated today * Continue Decadron for today and if patient continues to do well we will start weaning steroids * Continue antibiotics and if patient is stable likely can discontinue antibiotics tomorrow * Swallow evaluation after extubation Documented By: Marciano Mar MD [id number] Signed By: 11/10/242016 [facility]04-23-2025 Progress note Author Reyes Bridges [facility] Note Date/Time November 10, 2024 7:5 4am [facility] [address] [place] [address] Neurosurgery Progress Note Signed Patient: Michael Vaughn MR#: [id number] : 1950 Acct:[id number] Age/Sex: 74 / M Adm Date: 5 Loc: Room: [address] [place] [address] Type: ADM IN Attending Dr: Reyes Bridges DO Copies to: ~ Date of Service: 11/10/2024 Subjective Subjective HPI: Patient was seen and examined at bedside in morning rounds this morning. He remains intubated sedated but follows commands easily without any difficulties. Hopefully patient will be extubated today. Exam Physical Exam Vital Signs: Temp Pulse Resp BP Pulse Ox O2 Del Method O2 Flow Rate 98.5 F 48 L 16 137/68 94 L Mechanical Ventilation 2 11/10/24 04:00 11/10/24 07:00 11/10/24 07:00 11/10/24 07:00 11/10/24 07:00 11/10/24 07:00 11/04/24 16:00 FiO2 40 11/10/24 07:00 Narrative: Intubated, opens eyes Moves all extremities Follows basic commands SILT Objective Lab Results Most Recent Labs: 11/10/24 04:59: PHA Creatinine Clear 79.97, Sodium 132 L, Potassium 4.5, Chloride 101, Carbon Dioxide 27.0, Anion Gap 8.5, BUN 21, Creatinine 0.74, Est GFR (CKD- EPI) > 60.0, Glucose 115 H, Calcium 8.2 L 11/10/24 04:52: Sample Site Right radial, ABG pH 7.45, ABG pCO2 36.0, ABG pO2 75.8 L, ABG HCO3 24.7, ABG Total CO2 25.8, ABG O2 Saturation 95.3, ABG O2 Content 8.0, ABG Base Excess 1.1, Set Respiration Rate 16, Vent Mode Ac, FiO2 30, Tidal Volume 500, PEEP 5, Critical Value 11/10/24 00:24: POC Glucose 116, POC Glucose Comment Glu2: cleaned meter 11/09/24 17:12: POC Glucose 117, POC Glucose Comment Glu2: cleaned meter 11/09/24 11:55: POC Glucose 155, POC Glucose Comment Glu2: cleaned meter 11/09/24 08:00: Corrected WBC 7.7, Uncorrected WBC Count 7.7, RBC 3.59 L, Hgb 12.9 L, Hct 37.9 L, MCV 105.6 H, MCH 35.9 H, MCHC 34.0, RDW 16.1 H, Plt Count 161, MPV 8.5, Neut % (Auto) 84.2, Lymph % (Auto) 9.4, [place] % (Auto) 6.2, Eos % (Auto) 0.0, Baso % (Auto) 0.2, Nucleat RBC Rel Count 0.3, Neut # (Auto) 6.5, Lymph # (Auto) 0.7 L, [place] # (Auto) 0.5, Eos # (Auto) 0.0, Baso # (Auto) 0.0, PHA Creatinine Clear 79.83, Sodium 135 L, Potassium 4.4, Chloride 102, Carbon Dioxide 26.5, Anion Gap 10.9, BUN 21, Creatinine 0.67 L, Est GFR (CKD-EPI) > 60.0, Glucose 147 H, Calcium 8.2 L, Phosphorus 4.3, Magnesium 2.6 Assessment/Plan Assessment/Plan (1) Stridor: (2) Acute respiratory failure with hypoxia and hypercapnia: (3) Difficult airway for intubation: (4) JULI on CPAP: (5) Cervical myelopathy: (6) Alcohol abuse: Plan In summary as patient is a 74-year-old male postoperative day 6 from C3-C6 posterior cervical fusion with laminectomy secondary to having cervical spondylotic myelopathy. At this time the patient will be wean to extubate today. Pending patient can beextubated today he should be up out of bed working physical therapy and progressing towards discharge. We discussed the use of collar on at all times. He is on DVT and GI prophylaxis. Documented By: Reyes Bridges DO 11/10/24 075 Signed By: <Electronically signed by Reyes Bridges DO> 11/10/24 0754 [facility] Work Phone: 1(118) 817-757004-23-2025 [place] [address] Neurosurgery Progress Note Signed Patient: Michael Vaughn MR#: [id number] : 1950 Acct:[id number] Age/Sex: 74 / M Adm Date: 5 Loc: Room: [address] [place] [address] Type: ADM IN Attending Dr: Reyes Bridges DO Copies to: ~ Date of Service: 11/10/2024 Subjective Subjective HPI: Patient was seen and examined at bedside in morning rounds this morning. He remains intubated sedated but follows commands easily without any difficulties. Hopefully patient will be extubated today. Exam Physical Exam Vital Signs: Temp Pulse Resp BP Pulse Ox O2 Del Method O2 Flow Rate 98.5 F 48 L 16 137/68 94 L Mechanical Ventilation 2 11/10/24 04:00 11/10/24 07:00 11/10/24 07:00 11/10/24 07:00 11/10/24 07:00 11/10/24 07:00 11/04/24 16:00 FiO2 40 11/10/24 07:00 Narrative: Intubated, opens eyes Moves all extremities Follows basic commands SILT Objective Lab Results Most Recent Labs: 11/10/24 04:59: PHA Creatinine Clear 79.97, Sodium 132 L, Potassium 4.5, Chloride 101, Carbon Dioxide 27.0, Anion Gap 8.5, BUN 21, Creatinine 0.74, Est GFR (CKD-EPI) > 60.0, Glucose 115 H, Calcium8.2 L 11/10/24 04:52: Sample Site Right radial, ABG pH 7.45, ABG pCO2 36.0, ABG pO2 75.8 L, ABG HCO3 24.7, ABG Total CO2 25.8, ABG O2 Saturation 95.3, ABG O2 Content 8.0, ABG Base Excess 1.1, Set Respiration Rate 16, Vent Mode Ac, FiO2 30, Tidal Volume 500, PEEP 5, Critical Value 11/10/24 00:24: POC Glucose 116, POC Glucose Comment Glu2: cleaned meter 11/09/24 17:12: POC Glucose 117, POC Glucose Comment Glu2: cleaned meter 11/09/24 11:55: POC Glucose 155, POC Glucose Comment Glu2: cleaned meter 11/09/24 08:00: Corrected WBC 7.7, Uncorrected WBC Count 7.7, RBC 3.59 L, Hgb 12.9 L, Hct 37.9 L, MCV 105.6 H, MCH 35.9 H, MCHC 34.0, RDW 16.1 H, Plt Count 161, MPV 8.5, Neut % (Auto) 84.2, Lymph % (Auto) 9.4, [place] % (Auto) 6.2, Eos % (Auto) 0.0, Baso % (Auto) 0.2, Nucleat RBC Rel Count 0.3, Neut #(Auto) 6.5, Lymph # (Auto) 0.7 L, [place] # (Auto) 0.5, Eos # (Auto) 0.0, Baso # (Auto) 0.0, PHA Creatinine Clear 79.83, Sodium 135 L, Potassium 4.4, Chloride 102, Carbon Dioxide 26.5, Anion Gap 10.9, BUN 21, Creatinine 0.67 L, Est GFR (CKD-EPI) > 60.0, Glucose 147 H, Calcium 8.2 L, Phosphorus 4.3,Magnesium 2.6 Assessment/Plan Assessment/Plan (1) Stridor: (2) Acute respiratory failure with hypoxia and hypercapnia: (3) Difficult airway for intubation: (4) JULI on CPAP: (5) Cervical myelopathy: (6) Alcohol abuse: Plan In summary as patient is a 74-year-old male postoperative day 6 from C3-C6 posterior cervical fusion with laminectomy secondary to having cervical spondylotic myelopathy. At this time the patient will be wean to extubate today. Pending patient can beextubated today he should be up out of bed working physical therapy and progressing towards discharge. We discussed the use of collar on at all times. He is on DVT and GI prophylaxis. Documented By: Reyes Bridges DO 11/10/24751 Signed By: 11/10/24 0754 [facility]04-22-2025 Progress note Author Marciano Mar [facility] Note Date/Time November 09, 2024 12: 13pm [facility] [address] [place] [address] Pulmonology Progress Note Signed Patient: Michael Vaughn MR#: [id number] : 1950 Acct:[id number] Age/Sex: 74 / M Adm Date: 5 Loc: Room: [address] [place] [address] Type: ADM IN Attending Dr: Reyes Bridges DO Copies to: ~ Date of Service: 11/09/2024 Subjective Subjective Narrative: Patient with some evidence of leak around oral tracheal tube when 6.5 mm internal diameter endotracheal tube cuff was deflated today. Patient remains hemodynamically stable. Exam Physical Exam Vital Signs: Temp Pulse Resp BP Pulse Ox O2 Del Method O2 Flow Rate 98.5 F 50 L 16 131/63 95 Mechanical Ventilation 2 11/09/24 04:00 11/09/24 06:26 11/09/24 06:26 11/09/24 06:26 11/09/24 06:26 11/09/24 06:26 11/04/24 16:00 FiO2 40 11/09/24 06:26 Const Nutritional Appearance: overweight Orientation: not alert and not awake HEENT Head: normal to inspection, normocephalic and atraumatic Ears: external ears normal Nose: external nose normal Face and sinus: normal facial exam Mouth: other (6.5 mm ID ET tube) Eyes Eyelids: eyelids normal Neck Neck: normal visual inspection (C-collar in place) and no lymphadenopathy Chest Chest palpation & inspection: normal inspection of the chest Resp Auscultation: clear to auscultation bilaterally, no rales, no rhonchi and no wheezes Cardio Rate: regular rate Rhythm: regular rhythm Heart Sounds: S1 normal, S2 normal, no gallops, no murmurs and no rubs GI Inspection: normal to inspection Palpation: soft and nontender Auscultation: hypoactive bowel sounds Rectal Exam: deferred General: deferred Skin General: no rashes or lesions noted (warm and dry) Extrem General: no pedal edema Objective Intake and Output I&O - Last 24 Hours: Intake & Output 11/08/24 11/09/24 11/09/24 23:59 07:59 15:59 Intake Total 780 / 2030 700 / 700 Output Total 600 / 1408 550 / 550 Balance 180 / 622 150 / 150 Weight 76.8 kg Labs 11/09/24 08:00 11/09/24 08:00 Imaging and Cardiology Chest x-ray: Status: image reviewed by me Additional comments: Date of Service: 11/09/24 XR/XR chest 1V portable: intubated Plain film chest Single view HISTORY: Daily assessment of ventilated patient COMPARISON: 11/08/2024 FINDINGS: SUPPORT DEVICES: Stable POSTSURGICAL CHANGES: None HEART: Within normal limits PULMONARY RYAN: Within normal limits MEDIASTINUM: Unremarkable LUNGS AND PLEURA: Continued minor basilar parenchymal densities. Continued lowlung volumes. BONY STRUCTURES: Intact ADDITIONAL FINDINGS None XR/XR chest 1V portable IMPRESSION: Stable chest Additional Results Results Comments: 11/09/24 05:10 ABG pH 7.45 ABG pCO2 38.9 ABG pO2 78.9 L ABG HCO3 26.4 ABG Total CO2 27.6 H ABG O2 Saturation 95.3 ABG O2 Content 7.9 ABG Base Excess 2.4 16/500/40/5 Assessment/Plan Assessment/Plan (1) Stridor: (2) Acute respiratory failure with hypoxia and hypercapnia: (3) Difficult airway for intubation: (4) JULI on CPAP: (5) Cervical myelopathy: (6) Alcohol abuse: Plan Hospital day #5, postoperative day #5 status post cervical spine fusion and laminectomies in 74 yo M with 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 Hx of ETOH abuse, smoker, chronic syncopal episodes and falls, dysphagia, worsening shortness of breath and dysphagia recently. * Patient was noted to have some air leak today though still relatively small comparatively with patient having only 6.5 mm internal diameter endotracheal tube * Continue steroids and supportive care for another 24 hours particularly with patient having some concerns for alcohol withdrawal to try and optimize him before planning on extubation very possibly tomorrow * Continue supportive care including nutritional support with SCDs and stress ulcer prophylaxis and continue dexamethasone 6 mg IV every 6 hours Documented By: Marciano Mar MD 08 Signed By: <Electronically signed by MD Marciano Mar> 11/09/24 1213 [facility] Work Phone: 1(504) 285-781504-22-2025 Progress note Author Reyes Bridges [facility] Note Date/Time November 09, 2024 11: 17am [facility] [address] [place] [address] Neurosurgery Progress Note Signed Patient: Michael Vaughn MR#: [id number] : 1950 Acct:[id number] Age/Sex: 74 / M Adm Date: 5 Loc: Room: [address] [place] [address] Type: ADM IN Attending Dr: Reyes Bridges DO Copies to: ~ Date of Service: 11/09/2024 Subjective Subjective HPI: Patient was seen and examined at bedside in morning rounds morning. He remains sedated on Versed and fentanyl but easily arouses and follows basic simple commands and moving all extremities. Exam Physical Exam Vital Signs: Temp Pulse Resp BP Pulse Ox O2 Del Method O2 Flow Rate 97.9 F 50 L 16 118/61 93 L Mechanical Ventilation 2 11/09/24 08:00 11/09/24 10:00 11/09/24 10:00 11/09/24 10:00 11/09/24 10:00 11/09/24 10:00 11/04/24 16:00 FiO2 30 11/09/24 10:00 Narrative: Intubated, opens eyes Moves all extremities Follows basic commands SILT Objective Lab Results Most Recent Labs: 11/09/24 08:00: Corrected WBC 7.7, Uncorrected WBC Count 7.7, RBC 3.59 L, Hgb 12.9 L, Hct 37.9 L, MCV 105.6 H, MCH 35.9 H, MCHC 34.0, RDW 16.1 H, Plt Count 161, MPV 8.5, Neut % (Auto) 84.2, Lymph % (Auto) 9.4, [place] % (Auto) 6.2, Eos % (Auto) 0.0, Baso % (Auto) 0.2, Nucleat RBC Rel Count 0.3, Neut # (Auto) 6.5, Lymph # (Auto) 0.7 L, [place] # (Auto) 0.5, Eos # (Auto) 0.0, Baso # (Auto) 0.0, PHA Creatinine Clear 79.83, Sodium 135 L, Potassium 4.4, Chloride 102, Carbon Dioxide 26.5, Anion Gap 10.9, BUN 21, Creatinine 0.67 L, Est GFR (CKD-EPI) > 60.0, Glucose 147 H, Calcium 8.2 L, Phosphorus 4.3, Magnesium 2.6 11/09/24 05:42: POC Glucose 126 11/09/24 05:10: Sample Site Left radial, ABG pH 7.45, ABG pCO2 38.9, ABG pO2 78.9 L, ABG HCO3 26.4, ABG Total CO2 27.6 H, ABG O2 Saturation 95.3, ABG O2 Content 7.9, ABG Base Excess 2.4, Set Respiration Rate 16, Vent Mode Ac, FiO2 40, Tidal Volume 500, PEEP 10, Critical Value 11/09/24 04:34: Triglycerides 47 11/08/24 23:32: POC Glucose 181 11/08/24 18:23: POC Glucose 135 11/08/24 12:27: POC Glucose 139 Assessment/Plan Assessment/Plan (1) Stridor: (2) Acute respiratory failure with hypoxia and hypercapnia: (3) Difficult airway for intubation: (4) JULI on CPAP: (5) Cervical myelopathy: (6) Alcohol abuse: Plan In summary this patient is a 74-year-old male postop day 5 from C3-C6 posterior cervical fusion laminectomy secondary to having cervical spondylotic myelopathy. At this time I did review the chart optimistic that this patient will be extubated hopefully tomorrow. This patient has been seen by ear nose and throatand agrees with trying to attempt extubation tomorrow. His FiO2 and PEEP requirements are coming down as well to what it was previously. From neurosurgical perspective once the patient is extubated I do want open ambulating moving with physical therapy. Documented By: Reyes Bridges DO 11/09/24 111 Signed By: <Electronically signed by Reyes Bridges DO> 11/09/24 1117 [facility] Work Phone: 1(634) 813-261404-22-2025 [place] [address] Pulmonology Progress Note Signed Patient: Michael Vaughn MR#: [id number] : 1950 Acct:[id number] Age/Sex: 74 / M Adm Date: 5 Loc: Room: [address] [place] [address] Type: ADM IN Attending Dr: Reyes Bridges DO Copies to: ~ Date of Service: 11/09/2024 Subjective Subjective Narrative: Patient with some evidence of leak around oral tracheal tube when 6.5 mm internal diameter endotracheal tube cuff was deflated today. Patient remains hemodynamically stable. Exam Physical Exam Vital Signs: Temp Pulse Resp BP Pulse Ox O2 Del Method O2 Flow Rate 98.5 F 50 L 16 131/63 95 Mechanical Ventilation 2 11/09/24 04:00 11/09/24 06:26 11/09/24 06:26 11/09/24 06:26 11/09/24 06:26 11/09/24 06:26 11/04/24 16:00 FiO2 40 11/09/24 06:26 Const Nutritional Appearance: overweight Orientation: not alert and not awake HEENT Head: normal to inspection, normocephalic and atraumatic Ears: external ears normal Nose: external nose normal Face and sinus: normal facial exam Mouth: other (6.5 mm ID ET tube) Eyes Eyelids: eyelids normal Neck Neck: normal visual inspection (C-collar in place) and no lymphadenopathy Chest Chest palpation & inspection: normal inspection of the chest Resp Auscultation: clear to auscultation bilaterally, no rales, no rhonchi and no wheezes Cardio Rate: regular rate Rhythm: regular rhythm Heart Sounds: S1 normal, S2 normal, no gallops, no murmurs and no rubs GI Inspection: normal to inspection Palpation: soft and nontender Auscultation: hypoactive bowel sounds Rectal Exam: deferred General: deferred Skin General: no rashes or lesions noted (warm and dry) Extrem General: no pedal edema Objective Intake and Output I&O - Last 24 Hours: Intake & Output 11/08/24 11/09/24 11/09/24 23:59 07:59 15:59 Intake Total 780 / 2030 700 / 700 Output Total 600 / 1408 550 / 550 Balance 180 / 622 150 / 150 Weight 76.8 kg Labs 11/09/24 08:00 11/09/24 08:00 Imaging and Cardiology Chest x-ray: Status: image reviewed by me Additional comments: Date of Service: 11/09/24 XR/XR chest 1V portable: intubated Plain film chest Single view HISTORY: Daily assessment of ventilated patient COMPARISON: 11/08/2024 FINDINGS: SUPPORT DEVICES: Stable POSTSURGICAL CHANGES: None HEART: Within normal limits PULMONARY RYAN: Within normal limits MEDIASTINUM: Unremarkable LUNGS AND PLEURA: Continued minor basilar parenchymal densities. Continued lowlung volumes. BONY STRUCTURES: Intact ADDITIONAL FINDINGS None XR/XR chest 1V portable IMPRESSION: Stable chest Additional Results Results Comments: 11/09/24 05:10 ABG pH 7.45 ABG pCO2 38.9 ABG pO2 78.9 L ABG HCO3 26.4 ABG Total CO2 27.6 H ABG O2 Saturation 95.3 ABG O2 Content 7.9 ABG Base Excess 2.4 16/500/40/5 Assessment/Plan Assessment/Plan (1) Stridor: (2) Acute respiratory failure with hypoxia and hypercapnia: (3) Difficult airway for intubation: (4) JULI on CPAP: (5) Cervical myelopathy: (6) Alcohol abuse: Plan Hospital day #5, postoperative day #5 status post cervical spine fusion and laminectomies in 74 yo M with 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 Hx of ETOH abuse, smoker, chronic syncopal episodes and falls, dysphagia, worsening shortness of breath and dysphagia recently. * Patient was noted to have some air leak today though still relatively small comparatively with patient having only 6.5 mm internal diameter endotracheal tube * Continue steroids and supportive care for another 24 hours particularly with patient having some concerns for alcohol withdrawal to try and optimize him before planning on extubation very possibly tomorrow * Continue supportive care including nutritional support with SCDs and stress ulcer prophylaxis andcontinue dexamethasone 6 mg IV every 6 hours Documented By: Marciano Mar MD 5 [id number] Signed By: 11/09/24 [facility]04-22-2025 [place] [address] Neurosurgery Progress Note Signed Patient: Michael Vaughn MR#: [id number] : 1950 Acct:[id number] Age/Sex: 74 / M Adm Date: 5 Loc: Room: [address] [place] [address] Type: ADM IN Attending Dr: Reyes Bridges DO Copies to: ~ Date of Service: 11/09/2024 Subjective Subjective HPI: Patient was seen and examined at bedside in morning rounds morning. He remains sedated on Versed and fentanyl but easily arouses and follows basic simple commands and moving all extremities. Exam Physical Exam Vital Signs: Temp Pulse Resp BP Pulse Ox O2 Del Method O2 Flow Rate 97.9 F 50 L 16 118/61 93 L Mechanical Ventilation 2 11/09/24 08:00 11/09/24 10:00 11/09/24 10:00 11/09/24 10:00 11/09/24 10:00 11/09/24 10:00 11/04/24 16:00 FiO2 30 11/09/24 10:00 Narrative: Intubated, opens eyes Moves all extremities Follows basic commands SILT Objective Lab Results Most Recent Labs: 11/09/24 08:00: Corrected WBC 7.7, Uncorrected WBC Count 7.7, RBC 3.59 L, Hgb 12.9 L, Hct 37.9 L, MCV 105.6 H, MCH 35.9 H, MCHC 34.0, RDW 16.1 H, Plt Count 161, MPV 8.5, Neut % (Auto) 84.2, Lymph % (Auto) 9.4, [place] % (Auto) 6.2, Eos % (Auto) 0.0, Baso % (Auto) 0.2, Nucleat RBC Rel Count 0.3, Neut #(Auto) 6.5, Lymph # (Auto) 0.7 L, [place] # (Auto) 0.5, Eos # (Auto) 0.0, Baso # (Auto) 0.0, PHA Creatinine Clear 79.83, Sodium 135 L, Potassium 4.4, Chloride 102, Carbon Dioxide 26.5, Anion Gap 10.9, BUN 21, Creatinine 0.67 L, Est GFR (CKD-EPI) > 60.0, Glucose 147 H, Calcium 8.2 L, Phosphorus 4.3,Magnesium 2.6 11/09/24 05:42: POC Glucose 126 11/09/24 05:10: Sample Site Left radial, ABG pH 7.45, ABG pCO2 38.9, ABG pO2 78.9 L, ABG HCO3 26.4,ABG Total CO2 27.6 H, ABG O2 Saturation 95.3, ABG O2 Content 7.9, ABG Base Excess 2.4, Set Respiration Rate 16, Vent Mode Ac, FiO2 40, Tidal Volume 500, PEEP 10, Critical Value 11/09/24 04:34: Triglycerides 47 11/08/24 23:32: POC Glucose 181 11/08/24 18:23: POC Glucose 135 11/08/24 12:27: POC Glucose 139 Assessment/Plan Assessment/Plan (1) Stridor: (2) Acute respiratory failure with hypoxia and hypercapnia: (3) Difficult airway for intubation: (4) JULI on CPAP: (5) Cervical myelopathy: (6) Alcohol abuse: Plan In summary this patient is a 74-year-old male postop day 5 from C3-C6 posterior cervical fusion laminectomy secondary to having cervical spondylotic myelopathy. At this time I did review the chart optimistic that this patient will be extubated hopefully tomorrow. This patient has been seen by ear nose and throatand agrees with trying to attempt extubation tomorrow. His FiO2 and PEEP requirements are coming down as well to what it was previously. From neuros urgical perspective once the patient is extubated I do want open ambulating moving with physical therapy. Documented By: Reyes Bridges DO 11/09/241114 Signed By: 11/09/247 [facility]04-21-2025 Progress note Author Marciano Mar [facility] Note Date/Time November 08, 2024 7:2 5pm [facility] [address] [place] [address] Pulmonology Progress Note Signed Patient: Michael Vaughn MR#: [id number] : 1950 Acct:[id number] Age/Sex: 74 / M Adm Date: 5 Loc: Room: [address] [place] [address] Type: ADM IN Attending Dr: Reyes Bridges DO Copies to: ~ Date of Service: 11/08/2024 Subjective Subjective Narrative: Patient is hemodynamically and clinically stable with no air leak from around the 6.5 mm ID ET tube. Exam Physical Exam Vital Signs: Temp Pulse Resp BP Pulse Ox O2 Del Method O2 Flow Rate 97.7 F 50 L 16 158/79 H 93 L Mechanical Ventilation 2 11/08/24 04:00 11/08/24 07:00 11/08/24 07:00 11/08/24 07:00 11/08/24 07:00 11/08/24 07:00 11/04/24 16:00 FiO2 40 11/08/24 07:00 Const Orientation: not alert and not awake HEENT Head: normal to inspection, normocephalic and atraumatic Ears: external ears normal Nose: external nose normal Face and sinus: normal facial exam Mouth: other (6.5 mm ID ET tube) Eyes Eyelids: eyelids normal Neck Neck: normal visual inspection and no lymphadenopathy Chest Chest palpation & inspection: normal inspection of the chest Resp Auscultation: clear to auscultation bilaterally, no rales, no rhonchi and no wheezes Cardio Rate: regular rate Rhythm: regular rhythm Heart Sounds: S1 normal, S2 normal, no gallops, no murmurs and no rubs GI Inspection: normal to inspection Palpation: soft and nontender Auscultation: hypoactive bowel sounds Rectal Exam: deferred General: deferred Skin General: no rashes or lesions noted (warm and dry) Extrem General: no pedal edema Objective Intake and Output I&O - Last 24 Hours: Intake & Output 11/07/24 11/08/24 11/08/24 23:59 07:59 15:59 Intake Total 900 / 3240 600 / 600 Output Total 456 / 1709 408 / 408 Balance 444 / 1531 192 / 192 Weight 77.4 kg Labs 11/08/24 04:34 11/08/24 04:34 Imaging and Cardiology Chest x-ray: Status: image reviewed by me Additional comments: Date of Service: 11/08/24 XR/XR chest 1V portable: intubated Plain film chest Single view HISTORY: Daily assessment of ventilated patient COMPARISON: 11/07/2024 FINDINGS: SUPPORT DEVICES: Stable POSTSURGICAL CHANGES: None HEART: Within normal limits PULMONARY RYAN: Within normal limits MEDIASTINUM: Unremarkable LUNGS AND PLEURA: Similar minor basilar parenchymal densities. Continued low lung volumes. BONY STRUCTURES: Intact ADDITIONAL FINDINGS None XR/XR chest 1V portable IMPRESSION: Stable chest Additional Results Results Comments: 11/08/24 04:52 ABG pH 7.48 H ABG pCO2 35.9 ABG pO2 79.5 L ABG HCO3 26.2 ABG Total CO2 27.3 H ABG O2 Saturation 95.9 ABG O2 Content 7.6 ABG Base Excess 2.9 16/500/40/10 Assessment/Plan Assessment/Plan (1) Stridor: (2) Acute respiratory failure with hypoxia and hypercapnia: (3) Difficult airway for intubation: (4) JULI on CPAP: (5) Cervical myelopathy: (6) Alcohol abuse: Plan Hospital day #4, postoperative day #4 status post cervical spine fusion and laminectomies in 74 yo M with 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 Hx of ETOH abuse, smoker, chronic syncopal episodes and falls, dysphagia, worsening shortness of breath and dysphagia recently. * Continue Zosyn and dexamethasone 6 mg IV every six hours as well as supportive care * Case discussed with ENT. Continue antibiotics and steroids and if no improvement in edema/swelling by 11/10; would consider tracheostomy * Will discuss with Neurosurgery in AM Documented By: Marciano Mar MD [id number] Signed By: <Electronically signed by MD Marciano Mar> 11/08/241924 [facility] Work Phone: [phone]) 715-843604-21-[address] [address] Pulmonology Progress Note Signed Patient: Michael Vaughn MR#: [id number] : 1950 Acct:[id number] Age/Sex: 74 / M Adm Date: 5 Loc: Room: [address] [place] [address] Type: ADM IN Attending Dr: Reyes Bridges DO Copies to: ~ Date of Service: 11/08/2024 Subjective Subjective Narrative: Patient is hemodynamically and clinically stable with no air leak from around the 6.5 mm ID ET tube. Exam Physical Exam Vital Signs: Temp Pulse Resp BP Pulse Ox O2 Del Method O2 Flow Rate 97.7 F 50 L 16 158/79 H 93 L Mechanical Ventilation 2 11/08/24 04:00 11/08/24 07:00 11/08/24 07:00 11/08/24 07:00 11/08/24 07:00 11/08/24 07:00 11/04/24 16:00 FiO2 40 11/08/24 07:00 Const Orientation: not alert and not awake HEENT Head: normal to inspection, normocephalic and atraumatic Ears: external ears normal Nose: external nose normal Face and sinus: normal facial exam Mouth: other (6.5 mm ID ET tube) Eyes Eyelids: eyelids normal Neck Neck: normal visual inspection and no lymphadenopathy Chest Chest palpation & inspection: normal inspection of the chest Resp Auscultation: clear to auscultation bilaterally, no rales, no rhonchi and no wheezes Cardio Rate: regular rate Rhythm: regular rhythm Heart Sounds: S1 normal, S2 normal, no gallops, no murmurs and no rubs GI Inspection: normal to inspection Palpation: soft and nontender Auscultation: hypoactive bowel sounds Rectal Exam: deferred General: deferred Skin General: no rashes or lesions noted (warm and dry) Extrem General: no pedal edema Objective Intake and Output I&O - Last 24 Hours: Intake & Output 11/07/24 11/08/24 11/08/24 23:59 07:59 15:59 Intake Total 900 / 3240 600 / 600 Output Total 456 / 1709 408 / 408 Balance 444 / 1531 192 / 192 Weight 77.4 kg Labs 11/08/24 04:34 11/08/24 04:34 Imaging and Cardiology Chest x-ray: Status: image reviewed by me Additional comments: Date of Service: 11/08/24 XR/XR chest 1V portable: intubated Plain film chest Single view HISTORY: Daily assessment of ventilated patient COMPARISON: 11/07/2024 FINDINGS: SUPPORT DEVICES: Stable POSTSURGICAL CHANGES: None HEART: Within normal limits PULMONARY RYAN: Within normal limits MEDIASTINUM: Unremarkable LUNGS AND PLEURA: Similar minor basilar parenchymal densities. Continued low lung volumes. BONY STRUCTURES: Intact ADDITIONAL FINDINGS None XR/XR chest 1V portable IMPRESSION: Stable chest Additional Results Results Comments: 11/08/24 04:52 ABG pH 7.48 H ABG pCO2 35.9 ABG pO2 79.5 L ABG HCO3 26.2 ABG Total CO2 27.3 H ABG O2 Saturation 95.9 ABG O2 Content 7.6 ABG Base Excess 2.9 16/500/40/10 Assessment/Plan Assessment/Plan (1) Stridor: (2) Acute respiratory failure with hypoxia and hypercapnia: (3) Difficult airway for intubation: (4) JULI on CPAP: (5) Cervical myelopathy: (6) Alcohol abuse: Plan Hospital day #4, postoperative day #4 status post cervical spine fusion and laminectomies in 74 yo M with 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 Hx of ETOH abuse, smoker, chronic syncopal episodes and falls, dysphagia, worsening shortness of breath and dysphagia recently. * Continue Zosyn and dexamethasone 6 mg IV every six hours as well as supportive care * Case discussed with ENT. Continue antibiotics and steroids and if no improvement in edema/swelling by 11/10; would consider tracheostomy * Will discuss with Neurosurgery in AM Documented By: Marciano Mar MD 5 [id number] Signed By: 11/08/241924 [facility]04-21-2025 Consult note Author Vinicius Mathew [facility] Note Date/Time November 08, 2024 4:5 0pm [facility] [address] [place] [address] ENT Consult Note Signed Patient: Michael Vaughn MR#: [id number] : 1950 Acct:[id number] Age/Sex: 74 / M Adm Date: 5 Loc: Room: [address] [place] [address] Type: ADM IN Attending Dr: Reyes Bridges DO Copies to: DO Vinicius Arias DO Sherri M Shively, NP-C~ HPI Consult date: 11/08/2024 Requesting provider: Reyes Bridges DO Reason for consult: 74-year-old white male who recently underwent cervical spine surgery for myelopathy. After surgery the patient had stridor and partial airway obstruction. Had to be reintubated and placed on a ventilator. There was some concern regarding possible subglottic stenosis after his surgery. Patient is currently still on a ventilator with very poor leak test around the area of his endotracheal tube. ENT was subsequently consulted for further evaluation and treatment. HPI History of Present Illness: Patient recently underwent cervical spine surgery with a posterior approach. After his surgical intervention the patient was extubated on to be reintubated after having respiratory difficulties including stridor. Patient does have his eyes open but is not able to react to conversational speech. Review of Systems Review of Systems Unobtainable due to endotracheal tube PMFSH Medical History (Updated 11/08/24 @ 16:49 by Vinicius Mathew DO) Cervical myelopathy Anxiety Head injury from fall Smoker JULI on CPAP Acute confusion Primary osteoarthritis of right hip Primary osteoarthritis of left hip Poor balance Lymphadenitis Sleep apnea Hypertension Depression CVA (cerebral vascular accident) Left hip pain Surgical History History of right inguinal hernia repair History of carpal tunnel release bilateral 2020 Hx of total knee arthroplasty right knee, Dr. Day 02/04/24 Family History Father Prostate cancer Mother History of TB (tuberculosis) Social History Smoking Status: Current every day smoker Tobacco Type: cigarettes Substance Use Type: None Allergies & Medications Medications and Allergies Allergies No Known Allergies Allergy (Verified 11/04/24 06:07) Home Medications alprazolam 0.25 mg tablet (Xanax) 0.25 mg PO TID PRN anxiety 09/07/24 [History Confirmed 11/05/24] buspirone 5 mg tablet 5 mg PO DIRECTED 09/07/24 [History Confirmed 11/04/24] carvedilol 25 mg tablet 25 mg PO BID.WITH.MEALS 30 days #60 tabs 10/01/24 [Rx Confirmed 11/04/24] furosemide 20 mg tablet (Lasix) 20 mg PO BID 10/21/24 [History Confirmed 11/05/24] losartan 50 mg tablet 50 mg PO QAM 10/21/24 [History Confirmed 11/04/24] sodium chloride 1,000 mg soluble tablet 1,000 mg PO QID 10/21/24 [History Confirmed 11/05/24] tamsulosin 0.4 mg capsule 0.4 mg PO QAM 10/21/24 [History Confirmed 11/04/24] venlafaxine 75 mg tablet 75 mg PO TID 11/04/24 [History Confirmed 11/04/24] Active Medications Acetaminophen (Acetaminophen 325 Mg Tablet) 650 mg PO Q4H PRN PRN Reason: Pain Scale 1 - 3 Stop: 11/04/25 13:04 Al Hydrox/Mg Hydrox/Simethicone (Mag Hydrox/Al Hydrox/Simeth 30 Ml Udc) 30 ml PO Q4H PRN PRN Reason: Heartburn Stop: 11/04/25 13:04 Albuterol (Albuterol Neb 2.5 Mg/3 Ml Vial.Neb) 2.5 mg INHALATION QID.RESP KARLI Stop: 11/04/25 15:59 Last Admin: 11/05/24 11:37 Dose: Not Given Albuterol (Albuterol Hfa 200 Puff/18 Gm Inhaler) 6 puff VENT Q6HR KARLI Stop: 11/05/25 00:00 Last Admin: 11/08/24 12:06 Dose: 6 puff Buspirone HCl (Buspirone 5 Mg Tablet) 5 mg PO DAILY KARLI Stop: 11/05/25 08:59 Last Admin: 11/08/24 08:42 Dose: 5 mg Buspirone HCl (Buspirone 5 Mg Tablet) 5 mg PO TID KARLI Stop: 11/04/25 21:59 Last Admin: 11/08/24 15:19 Dose: 5 mg Carvedilol (Carvedilol 25 Mg Tablet) 25 mg PO BID.WITH.MEALS KARLI Stop: 11/04/25 16:59 Last Admin: 11/08/24 08:42 Dose: 25 mg Chlorhexidine Gluconate (Chlorhexidine Gluconate 0.12% 15 Ml Udc) 15 ml MUCOUS MEM BID KARLI Stop: 11/04/25 20:59 Last Admin: 11/08/24 08:42 Dose: 15 ml Cyclobenzaprine HCl (Cyclobenzaprine 10 Mg Tablet) 10 mg PO Q8HR PRN PRN Reason: Muscle Spasm Stop: 11/04/25 13:04 Dexamethasone Sodium Phosphate (Dexamethasone Sod Phosphate 4 Mg/Ml Vial) 6 mg IV-PUSH Q6H KARLI Stop: 11/04/25 21:59 Last Admin: 11/08/24 15:19 Dose: 6 mg Dextrose (Dextrose 50% In Water 25 Gm/50 Ml Syringe) 0 gm IV-PUSH PRN PRN PRN Reason: Hypoglycemia Stop: 11/04/25 16:02 Diphenhydramine HCl (Diphenhydramine 25 Mg Capsule) 25 mg PO Q6H PRN PRN Reason: Itching Stop: 11/04/25 13:04 Docusate Sodium (Docusate Liquid 100 Mg/10 Ml Udc) 100 mg PO BID [facility] Stop: 11/04/25 20:59 Last Admin: 11/08/24 08:43 Dose: Not Given Folic Acid (Folic Acid 50 Mg/10 Ml Vial) 1 mg IV-PUSH DAILY [facility] Stop: 11/07/25 09:04 Last Admin: 11/08/24 08:49 Dose: 1 mg Glucose (Dextrose 40% Gel 15 Gm Tube) 0 gm PO PRN PRN PRN Reason: Hypoglycemia Stop: 11/04/25 16:02 Hydralazine HCl (Hydralazine 20 Mg/Ml Vial) 10 mg IV-PUSH Q4H PRN PRN Reason: Blood Pressure - High Stop: 11/07/25 09:09 Last Admin: 11/07/24 09:25 Dose: 10 mg Hydromorphone HCl (Hydromorphone 1 Mg/Ml Syringe) 1 mg IV-PUSH Q2H PRN PRN Reason: Pain Scale 7-10 If unable to tolerate oral Hydromorphone HCl (Hydromorphone 0.5 Mg/0.5 Ml Syringe) 0.5 mg IV-PUSH Q2H PRN PRN Reason: Pain Scale 7-10 If unable to tolerate oral Fentanyl (Fentanyl 1,000 Mcg/100 Ml D5w) 1,000 mcg in 100 mls @ 2.5 mls/hr IV .Q24H KARLI; Protocol Last Admin: 11/08/24 09:23 Dose: 100 mcg/hr, 10 mls/hr Midazolam HCl (Versed) 100 mg in 100 mls @ 1 mls/hr IV .Q24H KARLI; Protocol Stop: 05/05/25 23:44 Last Admin: 11/08/24 09:23 Dose: 5 mg/hr, 5 mls/hr Piperacillin Sod/Tazobactam Sod (Zosyn) 3.375 gm in 100 mls @ 25 mls/hr IV Q8H KARLI Last Admin: 11/08/24 15:19 Dose: 25 mls/hr Insulin Aspart (Insulin Aspart 300 Units/3 Ml) 0 units SUBCUT Q6HR [facility]; Protocol Stop: 11/04/25 17:59 Last Admin: 11/08/24 15:18 Dose: Not Given Lorazepam (Lorazepam 2 Mg/Ml Vial) 2 mg IV-PUSH Q1H PRN PRN Reason: Agitation Stop: 05/05/25 05:52 Last Admin: 11/06/24 20:18 Dose: 2 mg Losartan Potassium (Losartan 50 Mg Tablet) 50 mg PO QAM AKRLI Stop: 11/05/25 08:59 Last Admin: 11/08/24 08:42 Dose: 50 mg Magnesium Hydroxide (Magnesium Hydroxide Susp 30 Ml Udc) 30 ml PO HS PRN PRN Reason: Constipation Stop: 11/04/25 13:04 Magnesium Hydroxide (Magnesium Hydroxide Susp 30 Ml Udc) 30 ml PO DAILY PRN PRN Reason: Constipation Stop: 11/04/25 18:25 Meperidine HCl (Meperidine Pf 25 Mg/Ml Vial) 12.5 mg IV-PUSH Q5M PRN PRN Reason: pain Last Admin: 11/04/24 11:10 Dose: 12.5 mg Ondansetron HCl (Ondansetron 4 Mg/2 Ml Vial) 4 mg IV-PUSH Q6H PRN PRN Reason: Nausea And Vomiting Stop: 11/04/25 13:04 Oxycodone HCl (Oxycodone Ir 5 Mg Tablet) 5 mg PO Q6HR PRN PRN Reason: Pain Scale 4 - 6 Oxycodone HCl (Oxycodone Ir 5 Mg Tablet) 10 mg PO Q6HR PRN PRN Reason: Pain Scale 7 - 10 Pantoprazole Sodium (Pantoprazole 40 Mg Vial) 40 mg IV-PUSH DAILY [facility] Stop: 11/05/25 08:59 Last Admin: 11/08/24 08:42 Dose: 40 mg Sennosides (Sennosides Syrup 8.8 Mg/5 Ml Udc) 8.8 mg PO BID KARLI Stop: 11/04/25 20:59 Last Admin: 11/08/24 08:43 Dose: Not Given Sodium Chloride (Sodium Chloride 0.9 % 10 Ml Vial.Pf) 10 ml INJECTION PRN PRN PRN Reason: Dilution Stop: 11/04/25 19:44 Last Admin: 11/08/24 08:42 Dose: 10 ml Sodium Chloride (Sodium Chloride 0.9 % 10 Ml Syringe) 10 ml IV-PUSH PRN PRN PRN Reason: Flush Stop: 11/04/25 19:44 Last Admin: 11/07/24 08:16 Dose: 10 ml Sodium Chloride (Sodium Chloride 0.9 % 10 Ml Vial.Pf) 10 ml INJECTION PRN PRN PRN Reason: Ativan dilution Stop: 11/06/25 05:52 Tamsulosin HCl (Tamsulosin 0.4 Mg Cap.Er.24h) 0.4 mg PO QAM KARLI Stop: 11/05/25 08:59 Last Admin: 11/05/24 08:38 Dose: Not Given Thiamine HCl (Thiamine 200 Mg/2 Ml Vial) 100 mg IV-PUSH DAILY KARLI Stop: 11/07/25 09:04 Last Admin: 11/08/24 08:49 Dose: 100 mg Venlafaxine HCl (Venlafaxine 75 Mg Tablet) 75 mg PO TID KARLI Stop: 11/04/25 13:59 Last Admin: 11/08/24 15:19 Dose: 75 mg Exam Physical Exam Vital Signs: Temp Pulse Resp BP Pulse Ox O2 Del Method O2 Flow Rate 98.3 F 92 16 149/70 H 94 L Mechanical Ventilation 2 11/08/24 12:00 11/08/24 15:40 11/08/24 15:40 11/08/24 15:00 11/08/24 15:00 11/08/24 15:00 11/04/24 16:00 FiO2 40 11/08/24 15:46 Narrative: Gross examination the patient shows an obese white male who is currently intubated on the ventilator. Patient does have a immobilized collar onto his neck. No evidence of asymmetry of the neck. Endotracheal tube and G-tube are going through the mouth. Nose has no evidence of significant drainage or obstruction. Palpation of his neck is difficult secondary to his immobilizationcollar. Not following commands. Results - ENT Labs 11/08/24 04:34 11/08/24 04:34 Lab Results: Laboratory Results - last 72 hr 11/08/24 12:27: POC Glucose 139 11/08/24 04:52: Sample Site Left brachial, ABG pH 7.48 H, ABG pCO2 35.9, ABG pO279.5 L, ABG HCO3 26.2, ABG Total CO2 27.3 H, ABG O2 Saturation 95.9, ABG O2 Content 7.6, ABG Base Excess 2.9, Set Respiration Rate 16, Vent Mode Ac, FiO2 40, Tidal Volume 500, PEEP 10, Critical Value 11/08/24 04:34: Corrected WBC 10.1, Uncorrected WBC Count 10.1, RBC 3.44 L, Hgb 12.0 L, Hct 35.4 L, MCV 102.8 H, MCH 34.8, MCHC 33.9, RDW 16.2 H, Plt Count 187,MPV 8.5, Neut % (Auto) 82.9, Lymph % (Auto) 8.7, [place] % (Auto) 8.2, Eos % (Auto)0.0, Baso % (Auto) 0.2, Nucleat RBC Rel Count 0.1, Neut # (Auto) 8.4 H, Lymph # (Auto) 0.9 L, [place] # (Auto) 0.8, Eos # (Auto) 0.0, Baso # (Auto) 0.0, PHA Creatinine Clear 80.25, Sodium 136, Potassium 4.1, Chloride 102, Carbon Dioxide 28.1, Anion Gap 10.0, BUN 20, Creatinine 0.74, Est GFR (CKD-EPI) > 60.0, [id number] H, Calcium 8.5 L, Triglycerides 55 11/07/24 17:02: POC Glucose 167, POC Glucose Comment Glu2: cleaned meter 11/07/24 11:19: POC Glucose 126, POC Glucose Comment Glu2: cleaned meter 11/07/24 06:15: Sample Site Right brachial, ABG pH 7.42, ABG pCO2 40.0, ABG pO2 92.7, ABG HCO3 25.6, ABG Total CO2 26.8, ABG O2 Saturation 96.8, ABG O2 Content 7.6, ABG Base Excess 1.2, Set Respiration Rate 16, Vent Mode Ac, FiO2 40, Tidal Volume 500, PEEP 10, Critical Value 11/07/24 04:45: Corrected WBC 8.6, Uncorrected WBC Count 8.6, RBC 3.20 L, Hgb 11.3 L, Hct 33.1 L, MCV 103.5 H, MCH 35.4 H, MCHC 34.2, RDW 16.5 H, Plt Count 177, MPV 8.3, Neut % (Auto) 85.5, Lymph % (Auto) 7.3, [place] % (Auto) 7.2, Eos % (Auto) 0.0, Baso % (Auto) 0.0, Nucleat RBC Rel Count 0.0, Neut # (Auto) 7.4, Lymph # (Auto) 0.6 L, [place] # (Auto) 0.6, Eos # (Auto) 0.0, Baso # (Auto) 0.0, PHA Creatinine Clear 80.25, Sodium 138, Potassium 3.9, Chloride 106, Carbon Dioxide 27.2, Anion Gap 8.7, BUN 17, Creatinine 0.76, Est GFR (CKD-EPI) > 60.0, Glucose 162 H, Calcium 8.3 L, Phosphorus 3.1, Magnesium 2.3, Total Creatine Kinase 45, Triglycerides 34 L 11/06/24 23:37: POC Glucose 154 11/06/24 17:18: POC Glucose 175, POC Glucose Comment Glu2: cleaned meter 11/06/24 11:15: POC Glucose 155, POC Glucose Comment Glu2: cleaned meter 11/06/24 05:47: Sample Site Right radial, ABG pH 7.48 H, ABG pCO2 32.1 L, ABG pO2 133.7 H*, ABG HCO3 23.4, ABG Total CO2 24.4, ABG O2 Saturation 98.8, ABG O2 Content 7.6, ABG Base Excess 0.5, Set Respiration Rate 16, Vent Mode Ac, FiO2 70, Tidal Volume 500, PEEP 10, Critical Value 11/06/24 04:29: Corrected WBC 8.8, Uncorrected WBC Count 8.8, RBC 3.16 L, Hgb 11.2 L, Hct 33.1 L, MCV 104.7 H, MCH 35.5 H, MCHC 33.9, RDW 16.6 H, Plt Count 184, MPV 8.0, Neut % (Auto) 85.2, Lymph % (Auto) 7.1, [place] % (Auto) 7.5, Eos % (Auto) 0.0, Baso % (Auto) 0.2, Nucleat RBC Rel Count 0.1, Neut # (Auto) 7.5, Lymph # (Auto) 0.6 L, [place] # (Auto) 0.7, Eos # (Auto) 0.0, Baso # (Auto) 0.0, PHA Creatinine Clear 84.03, Sodium 138, Potassium 3.9, Chloride 103, Carbon Dioxide 26.6, Anion Gap 12.3, BUN 16, Creatinine 0.73, Est GFR (CKD-EPI) > 60.0,Glucose 162 H, Calcium 8.4 L, Triglycerides 70 11/06/24 00:00: POC Glucose 144 11/05/24 20:36: POC Glucose 124 11/05/24 18:32: POC Glucose 151 Narrative Results Comment: Review of this patient's CT scan of his neck reveals evidence of some edema in the area of the supraglottis without evidence of significant subglottic stenosis. The area of fullness immediately below the vocal cords is likely fluid or edema. Patient does have a relatively large endotracheal tube currently in place. A&P - ENT (1) Difficult airway for intubation: Plan: Will observe the patient while being treated for swelling and reflux. Consider extubation in the future. Should this not be tolerated, tracheotomy would be a last alternative treatment for this condition. Code(s): T88.4XXA - Failed or difficult intubation, initial encounter (2) Acute respiratory failure with hypoxia and hypercapnia: Code(s): J96.01 - Acute respiratory failure with hypoxia; J96.02 - Acute respiratory failure with hypercapnia (3) Partial obstruction of airway: Plan: Patient currently intubated and receiving medication for swelling and reflux. Consider extubation in the near future. Code(s): J98.8 - Other specified respiratory disorders Plan All of the area of swelling and airway obstruction are supraglottic in nature with very limited swelling around the area of the vocal cords. I do not see anysignificant evidence of subglottic stenosis. Fiberoptic examination after extubation may be considered once his airway is stable. Documented By: Vinicius Mathew DO 11/08/24 164 4 Signed By: <Electronically signed by DO Vinicius Mathew> 11/08/24 1650 [facility] Work Phone: [phone] 326-595204-21-2025 [place] [address] ENT Consult Note Signed Patient: Michael Vaughn MR#: [id number] : 1950 Acct:[id number] Age/Sex: 74 / M Adm Date: 5 Loc: Room: [address] [place] [address] Type: ADM IN Attending Dr: Reyes Bridges DO Copies to: DO Vinicius Arias DO Sherri M Shively, BRADEN-C~ HPI Consult date: 11/08/2024 Requesting provider: Reyes Bridges DO Reason for consult: 74-year-old white male who recently underwent cervical spine surgery for myelopathy. After surgery the patient had stridor and partial airway obstruction. Had to be reintubated and placed on a ventilator. There was some concern regarding possible subglottic stenosis after his surgery. Patient is cur rently still on a ventilator with very poor leak test around the area of his endotracheal tube. ENTwas subsequently consulted for further evaluation and treatment. HPI History of Present Illness: Patient recently underwent cervical spine surgery with a posterior approach. After his surgical intervention the patient was extubated on to be reintubated after having respiratory difficulties including stridor. Patient does have his eyes open but is not able to react to conversational speech. Review of Systems Review of Systems Unobtainable due to endotracheal tube [facility] Medical History (Updated 11/08/24 @ 16:49 by Vinicius Mathew DO) Cervical myelopathy Anxiety Head injury from fall Smoker JULI on CPAP Acute confusion Primary osteoarthritis of right hip Primary osteoarthritis of left hip Poor balance Lymphadenitis Sleep apnea Hypertension Depression CVA (cerebral vascular accident) Left hip pain Surgical History History of right inguinal hernia repair History of carpal tunnel release bilateral 2020 Hx of total knee arthroplasty right knee, Dr. Day 02/04/24 Family History Father Prostate cancer Mother History of TB (tuberculosis) Social History Smoking Status: Current every day smoker Tobacco Type: cigarettes Substance Use Type: None Allergies & Medications Medications and Allergies Allergies No Known Allergies Allergy (Verified 11/04/24 06:07) Home Medications alprazolam 0.25 mg tablet (Xanax) 0.25 mg PO TID PRN anxiety 09/07/24 [History Confirmed 11/05/24] buspirone 5 mg tablet 5 mg PO DIRECTED 09/07/24 [History Confirmed 11/04/24] carvedilol 25 mg tablet 25 mg PO BID.WITH.MEALS 30 days #60 tabs 10/01/24 [Rx Confirmed 11/04/24] furosemide 20 mg tablet (Lasix) 20 mg PO BID 10/21/24 [History Confirmed 11/05/24] losartan 50 mg tablet 50 mg PO QAM 10/21/24 [History Confirmed 11/04/24] sodium chloride 1,000 mg soluble tablet 1,000 mg PO QID 10/21/24 [History Confirmed 11/05/24] tamsulosin 0.4 mg capsule 0.4 mg PO QAM 10/21/24 [History Confirmed 11/04/24] venlafaxine 75 mg tablet 75 mg PO TID 11/04/24 [History Confirmed 11/04/24] Active Medications Acetaminophen (Acetaminophen 325 Mg Tablet) 650 mg PO Q4H PRN PRN Reason: Pain Scale 1 - 3 Stop: 11/04/25 13:04 Al Hydrox/Mg Hydrox/Simethicone (Mag Hydrox/Al Hydrox/Simeth 30 Ml Udc) 30 ml PO Q4H PRN PRN Reason: Heartburn Stop: 11/04/25 13:04 Albuterol (Albuterol Neb 2.5 Mg/3 Ml Vial.Neb) 2.5 mg INHALATION QID.RESP KARLI Stop: 11/04/25 15:59 Last Admin: 11/05/24 11:37 Dose: Not Given Albuterol (Albuterol Hfa 200 Puff/18 Gm Inhaler) 6 puff VENT Q6HR KARLI Stop: 11/05/25 00:00 Last Admin: 11/08/24 12:06 Dose: 6 puff Buspirone HCl (Buspirone 5 Mg Tablet) 5 mg PO DAILY KARLI Stop: 11/05/25 08:59 Last Admin: 11/08/24 08:42 Dose: 5 mg Buspirone HCl (Buspirone 5 Mg Tablet) 5 mg PO TID KARLI Stop: 11/04/25 21:59 Last Admin: 11/08/24 15:19 Dose: 5 mg Carvedilol (Carvedilol 25 Mg Tablet) 25 mg PO BID.WITH.MEALS [facility] Stop: 11/04/25 16:59 Last Admin: 11/08/24 08:42 Dose: 25 mg Chlorhexidine Gluconate (Chlorhexidine Gluconate 0.12% 15 Ml Udc) 15 ml MUCOUS MEM BID KARLI Stop: 11/04/25 20:59 Last Admin: 11/08/24 08:42 Dose: 15 ml Cyclobenzaprine HCl (Cyclobenzaprine 10 Mg Tablet) 10 mg PO Q8HR PRN PRN Reason: Muscle Spasm Stop: 11/04/25 13:04 Dexamethasone Sodium Phosphate (Dexamethasone Sod Phosphate 4 Mg/Ml Vial) 6 mg IV-PUSH Q6H KARLI Stop: 11/04/25 21:59 Last Admin: 11/08/24 15:19 Dose: 6 mg Dextrose (Dextrose 50% In Water 25 Gm/50 Ml Syringe) 0 gm IV-PUSH PRN PRN PRN Reason: Hypoglycemia Stop: 11/04/25 16:02 Diphenhydramine HCl (Diphenhydramine 25 Mg Capsule) 25 mg PO Q6H PRN PRN Reason: Itching Stop: 11/04/25 13:04 Docusate Sodium (Docusate Liquid 100 Mg/10 Ml Udc) 100 mg PO BID KARLI Stop: 11/04/25 20:59 Last Admin: 11/08/24 08:43 Dose: Not Given Folic Acid (Folic Acid 50 Mg/10 Ml Vial) 1 mg IV-PUSH DAILY KARLI Stop: 11/07/25 09:04 Last Admin: 11/08/24 08:49 Dose: 1 mg Glucose (Dextrose 40% Gel 15 Gm Tube) 0 gm PO PRN PRN PRN Reason: Hypoglycemia Stop: 11/04/25 16:02 Hydralazine HCl (Hydralazine 20 Mg/Ml Vial) 10 mg IV-PUSH Q4H PRN PRN Reason: Blood Pressure - High Stop: 11/07/25 09:09 Last Admin: 11/07/24 09:25 Dose: 10 mg Hydromorphone HCl (Hydromorphone 1 Mg/Ml Syringe) 1 mg IV-PUSH Q2H PRN PRN Reason: Pain Scale 7-10 If unable to tolerate oral Hydromorphone HCl (Hydromorphone 0.5 Mg/0.5 Ml Syringe) 0.5 mg IV-PUSH Q2H PRN PRN Reason: Pain Scale 7-10 If unable to tolerate oral Fentanyl (Fentanyl 1,000 Mcg/100 Ml D5w) 1,000 mcg in 100 mls @ 2.5 mls/hr IV .Q24H KARLI; Protocol Last Admin: 11/08/24 09:23 Dose: 100 mcg/hr, 10 mls/hr Midazolam HCl (Versed) 100 mg in 100 mls @ 1 mls/hr IV .Q24H KARLI; Protocol Stop: 05/05/25 23:44 Last Admin: 11/08/24 09:23 Dose: 5 mg/hr, 5 mls/hr Piperacillin Sod/Tazobactam Sod (Zosyn) 3.375 gm in 100 mls @ 25 mls/hr IV Q8H KARLI Last Admin: 11/08/24 15:19 Dose: 25 mls/hr Insulin Aspart (Insulin Aspart 300 Units/3 Ml) 0 units SUBCUT Q6HR [facility]; Protocol Stop: 11/04/25 17:59 Last Admin: 11/08/24 15:18 Dose: Not Given Lorazepam (Lorazepam 2 Mg/Ml Vial) 2 mg IV-PUSH Q1H PRN PRN Reason: Agitation Stop: 05/05/25 05:52 Last Admin: 11/06/24 20:18 Dose: 2 mg Losartan Potassium (Losartan 50 Mg Tablet) 50 mg PO QAM KARLI Stop: 11/05/25 08:59 Last Admin: 11/08/24 08:42 Dose: 50 mg Magnesium Hydroxide (Magnesium Hydroxide Susp 30 Ml Udc) 30 ml PO HS PRN PRN Reason: Constipation Stop: 11/04/25 13:04 Magnesium Hydroxide (Magnesium Hydroxide Susp 30 Ml Udc) 30 ml PO DAILY PRN PRN Reason: Constipation Stop: 11/04/25 18:25 Meperidine HCl (Meperidine Pf 25 Mg/Ml Vial) 12.5 mg IV-PUSH Q5M PRN PRN Reason: pain Last Admin: 11/04/24 11:10 Dose: 12.5 mg Ondansetron HCl (Ondansetron 4 Mg/2 Ml Vial) 4 mg IV-PUSH Q6H PRN PRN Reason: Nausea And Vomiting Stop: 11/04/25 13:04 Oxycodone HCl (Oxycodone Ir 5 Mg Tablet) 5 mg PO Q6HR PRN PRN Reason: Pain Scale 4 - 6 Oxycodone HCl (Oxycodone Ir 5 Mg Tablet) 10 mg PO Q6HR PRN PRN Reason: Pain Scale 7 - 10 Pantoprazole Sodium (Pantoprazole 40 Mg Vial) 40 mg IV-PUSH DAILY [facility] Stop: 11/05/25 08:59 Last Admin: 11/08/24 08:42 Dose: 40 mg Sennosides (Sennosides Syrup 8.8 Mg/5 Ml Udc) 8.8 mg PO BID [facility] Stop: 11/04/25 20:59 Last Admin: 11/08/24 08:43 Dose: Not Given Sodium Chloride (Sodium Chloride 0.9 % 10 Ml Vial.Pf) 10 ml INJECTION PRN PRN PRN Reason: Dilution Stop: 11/04/25 19:44 Last Admin: 11/08/24 08:42 Dose: 10 ml Sodium Chloride (Sodium Chloride 0.9 % 10 Ml Syringe) 10 ml IV-PUSH PRN PRN PRN Reason: Flush Stop: 11/04/25 19:44 Last Admin: 11/07/24 08:16 Dose: 10 ml Sodium Chloride (Sodium Chloride 0.9 % 10 Ml Vial.Pf) 10 ml INJECTION PRN PRN PRN Reason: Ativan dilution Stop: 11/06/25 05:52 Tamsulosin HCl (Tamsulosin 0.4 Mg Cap.Er.24h) 0.4 mg PO QAM KARLI Stop: 11/05/25 08:59 Last Admin: 11/05/24 08:38 Dose: Not Given Thiamine HCl (Thiamine 200 Mg/2 Ml Vial) 100 mg IV-PUSH DAILY KARLI Stop: 11/07/25 09:04 Last Admin: 11/08/24 08:49 Dose: 100 mg Venlafaxine HCl (Venlafaxine 75 Mg Tablet) 75 mg PO TID [facility] Stop: 11/04/25 13:59 Last Admin: 11/08/24 15:19 Dose: 75 mg Exam Physical Exam Vital Signs: Temp Pulse Resp BP Pulse Ox O2 Del Method O2 Flow Rate 98.3 F 92 16 149/70 H 94 L Mechanical Ventilation 2 11/08/24 12:00 11/08/24 15:40 11/08/24 15:40 11/08/24 15:00 11/08/24 15:00 11/08/24 15:00 11/04/24 16:00 FiO2 40 11/08/24 15:46 Narrative: Gross examination the patient shows an obese white male who is currently intubated on the ventilator. Patient does have a immobilized collar onto his neck. No evidence of asymmetry of the neck. Endotracheal tube and G-tube are going through the mouth. Nose has no evidence of significant drainage or obstruction. Palpation of his neck is difficult secondary to his immobilizationcollar. Not following commands. Results - ENT Labs 11/08/24 04:34 11/08/24 04:34 Lab Results: Laboratory Results - last 72 hr 11/08/24 12:27: POC Glucose 139 11/08/24 04:52: Sample Site Left brachial, ABG pH 7.48 H, ABG pCO2 35.9, ABG pO279.5 L, ABG HCO3 26.2, ABG Total CO2 27.3 H, ABG O2 Saturation 95.9, ABG O2 Content 7.6, ABG Base Excess 2.9, Set Respiration Rate 16, Vent Mode Ac, FiO2 40, Tidal Volume 500, PEEP 10, Critical Value 11/08/24 04:34: Corrected WBC 10.1, Uncorrected WBC Count 10.1, RBC 3.44 L, Hgb 12.0 L, Hct 35.4 L,MCV 102.8 H, MCH 34.8, MCHC 33.9, RDW 16.2 H, Plt Count 187,MPV 8.5, Neut % (Auto) 82.9, Lymph % (Auto) 8.7, [place] % (Auto) 8.2, Eos % (Auto)0.0, Baso % (Auto) 0.2, Nucleat RBC Rel Count 0.1, Neut # (Auto) 8.4 H, Lymph # (Auto) 0.9 L, [place] # (Auto) 0.8, Eos # (Auto) 0.0, Baso # (Auto) 0.0, PHA Creatinine Clear 80.25, Sodium 136, Potassium 4.1, Chloride 102, Carbon Dioxide 28.1, Anion Gap 10.0, BUN20, Creatinine 0.74, Est GFR (CKD-EPI) > 60.0, [id number] H, Calcium 8.5 L, Triglycerides 55 11/07/24 17:02: POC Glucose 167, POC Glucose Comment Glu2: cleaned meter 11/07/24 11:19: POC Glucose 126, POC Glucose Comment Glu2: cleaned meter 11/07/24 06:15: Sample Site Right brachial, ABG pH 7.42, ABG pCO2 40.0, ABG pO2 92.7, ABG HCO3 25.6, ABG Total CO2 26.8, ABG O2 Saturation 96.8, ABG O2 Content 7.6, ABG Base Excess 1.2, Set Respiration Rate 16, Vent Mode Ac, FiO2 40, Tidal Volume 500, PEEP 10, Critical Value 11/07/24 04:45: Corrected WBC 8.6, Uncorrected WBC Count 8.6, RBC 3.20 L, Hgb 11.3 L, Hct 33.1 L, MCV 103.5 H, MCH 35.4 H, MCHC 34.2, RDW 16.5 H, Plt Count 177, MPV 8.3, Neut % (Auto) 85.5, Lymph % (Auto) 7.3, [place] % (Auto) 7.2, Eos % (Auto) 0.0, Baso % (Auto) 0.0, Nucleat RBC Rel Count 0.0, Neut #(Auto) 7.4, Lymph # (Auto) 0.6 L, [place] # (Auto) 0.6, Eos # (Auto) 0.0, Baso # (Auto) 0.0, PHA Creatinine Clear 80.25, Sodium 138, Potassium 3.9, Chloride 106, Carbon Dioxide 27.2, Anion Gap 8.7, BUN 17, Creatinine 0.76, Est GFR (CKD-EPI) > 60.0, Glucose 162 H, Calcium 8.3 L, Phosphorus 3.1, Magnesium 2.3, Total Creatine Kinase 45, Triglycerides 34 L 11/06/24 23:37: POC Glucose 154 11/06/24 17:18: POC Glucose 175, POC Glucose Comment Glu2: cleaned meter 11/06/24 11:15: POC Glucose 155, POC Glucose Comment Glu2: cleaned meter 11/06/24 05:47: Sample Site Right radial, ABG pH 7.48 H, ABG pCO2 32.1 L, ABG pO2 133.7 H*, ABG HCO3 23.4, ABG Total CO2 24.4, ABG O2 Saturation 98.8, ABG O2 Content 7.6, ABG Base Excess 0.5, Set Respiration Rate 16, Vent Mode Ac, FiO2 70, Tidal Volume 500, PEEP 10, Critical Value 11/06/24 04:29: Corrected WBC 8.8, Uncorrected WBC Count 8.8, RBC 3.16 L, Hgb 11.2 L, Hct 33.1 L, MCV 104.7 H, MCH 35.5 H, MCHC 33.9, RDW 16.6 H, Plt Count 184, MPV 8.0, Neut % (Auto) 85.2, Lymph % (Auto) 7.1, [place] % (Auto) 7.5, Eos % (Auto) 0.0, Baso % (Auto) 0.2, Nucleat RBC Rel Count 0.1, Neut #(Auto) 7.5, Lymph # (Auto) 0.6 L, [place] # (Auto) 0.7, Eos # (Auto) 0.0, Baso # (Auto) 0.0, PHA Creatinine Clear 84.03, Sodium 138, Potassium 3.9, Chloride 103, Carbon Dioxide 26.6, Anion Gap 12.3, BUN16, Creatinine 0.73, Est GFR (CKD-EPI) > 60.0,Glucose 162 H, Calcium 8.4 L, Triglycerides 70 11/06/24 00:00: POC Glucose 144 11/05/24 20:36: POC Glucose 124 11/05/24 18:32: POC Glucose 151 Narrative Results Comment: Review of this patient's CT scan of his neck reveals evidence of some edema in the area of the supraglottis without evidence of significant subglottic stenosis. The area of fullness immediately belowthe vocal cords is likely fluid or edema. Patient does have a relatively large endotracheal tube currently in place. A&P - ENT (1) Difficult airway for intubation: Plan: Will observe the patient while being treated for swelling and reflux. Consider extubation in the future. Should this not be tolerated, tracheotomy would be a last alternative treatment for this condition. Code(s): T88.4XXA - Failed or difficult intubation, initial encounter (2) Acute respiratory failure with hypoxia and hypercapnia: Code(s): J96.01 - Acute respiratory failure with hypoxia; J96.02 - Acute respiratory failure with hypercapnia (3) Partial obstruction of airway: Plan: Patient currently intubated and receiving medication for swelling and reflux. Consider extubation in the near future. Code(s): J98.8 - Other specified respiratory disorders Plan All of the area of swelling and airway obstruction are supraglottic in nature with very limited swelling around the area of the vocal cords. I do not see anysignificant evidence of subglottic stenosis. Fiberoptic examination after extubation may be considered once his airway is stable. Documented By: Vinicius Mathew, 11/08/24 164 4 Signed By: 11/08/24 1650 [facility]04-21-2025 Progress note Author Reyes Bridges [facility] Note Date/Time November 08, 2024 8:0 9am [facility] [address] [place] [address] Neurosurgery Progress Note Signed Patient: Michael Vaughn MR#: [id number] : 1950 Acct:[id number] Age/Sex: 74 / M Adm Date: 5 Loc: Room: [address] [place] [address] Type: ADM IN Attending Dr: Reyes Bridges DO Copies to: ~ Date of Service: 11/08/2024 Subjective Subjective HPI: Patient was seen examined at bedside in morning rounds this morning. He remainssedated on Versed as well as fentanyl. That is FiO2 is at 40% with a PEEP of 10. Exam Physical Exam Vital Signs: Temp Pulse Resp BP Pulse Ox O2 Del Method O2 Flow Rate 97.7 F 50 L 16 158/79 H 93 L Mechanical Ventilation 2 11/08/24 04:00 11/08/24 07:00 11/08/24 07:00 11/08/24 07:00 11/08/24 07:00 11/08/24 07:00 11/04/24 16:00 FiO2 40 11/08/24 07:00 Narrative: Intubated, opens eyes Moves all extremities Follows basic commands SILT Drain in place Objective Lab Results Most Recent Labs: 11/08/24 04:52: Sample Site Left brachial, ABG pH 7.48 H, ABG pCO2 35.9, ABG pO279.5 L, ABG HCO3 26.2, ABG Total CO2 27.3 H, ABG O2 Saturation 95.9, ABG O2 Content 7.6, ABG Base Excess 2.9, Set Respiration Rate 16, Vent Mode Ac, FiO2 40, Tidal Volume 500, PEEP 10, Critical Value 11/08/24 04:34: Corrected WBC 10.1, Uncorrected WBC Count 10.1, RBC 3.44 L, Hgb 12.0 L, Hct 35.4 L, MCV 102.8 H, MCH 34.8, MCHC 33.9, RDW 16.2 H, Plt Count 187,MPV 8.5, Neut % (Auto) 82.9, Lymph % (Auto) 8.7, [place] % (Auto) 8.2, Eos % (Auto)0.0, Baso % (Auto) 0.2, Nucleat RBC Rel Count 0.1, Neut # (Auto) 8.4 H, Lymph # (Auto) 0.9 L, [place] # (Auto) 0.8, Eos # (Auto) 0.0, Baso # (Auto) 0.0, PHA Creatinine Clear 80.25, Sodium 136, Potassium 4.1, Chloride 102, Carbon Dioxide 28.1, Anion Gap 10.0, BUN 20, Creatinine 0.74, Est GFR (CKD-EPI) > 60.0, [id number] H, Calcium 8.5 L, Triglycerides 55 11/07/24 17:02: POC Glucose 167, POC Glucose Comment Glu2: cleaned meter 11/07/24 11:19: POC Glucose 126, POC Glucose Comment Glu2: cleaned meter 11/07/24 04:45: Phosphorus 3.1, Magnesium 2.3, Total Creatine Kinase 45 Assessment/Plan Assessment/Plan (1) Stridor: (2) Acute respiratory failure with hypoxia and hypercapnia: (3) Difficult airway for intubation: (4) JULI on CPAP: (5) Cervical myelopathy: (6) Alcohol abuse: Plan In summary patient is a 74-year-old male postop day 4 from C3-C6 posterior cervical laminectomies and fusion secondary to having cervical spondylotic myelopathy. At this time the patient will be evaluated by pulmonology team as well as ear nose and throat today with considerations to move towards extubation. He remains on Decadron 6 every 6 because of his airway. From neurosurgical perspective we will discontinue the drain today. He is on DVT prophylaxis currently is well as having tube feeds. Will defer the medical management per critical care team. Documented By: Reyes Bridges DO 11/08/24 0807 Signed By: <Electronically signed by Reyes Bridges DO> 11/08/24 0809 [facility] Work Phone: [phone] 209-342504-21-20[place] [address] Neurosurgery Progress Note Signed Patient: Michael Vaughn MR#: [id number] : 1950 Acct:[id number] Age/Sex: 74 / M Adm Date: 5 Loc: Room: [address] [place] [address] Type: ADM IN Attending Dr: Reyes Bridges DO Copies to: ~ Date of Service: 11/08/2024 Subjective Subjective HPI: Patient was seen examined at bedside in morning rounds this morning. He remainssedated on Versed aswell as fentanyl. That is FiO2 is at 40% with a PEEP of 10. Exam Physical Exam Vital Signs: Temp Pulse Resp BP Pulse Ox O2 Del Method O2 Flow Rate 97.7 F 50 L 16 158/79 H 93 L Mechanical Ventilation 2 11/08/24 04:00 11/08/24 07:00 11/08/24 07:00 11/08/24 07:00 11/08/24 07:00 11/08/24 07:00 11/04/24 16:00 FiO2 40 11/08/24 07:00 Narrative: Intubated, opens eyes Moves all extremities Follows basic commands SILT Drain in place Objective Lab Results Most Recent Labs: 11/08/24 04:52: Sample Site Left brachial, ABG pH 7.48 H, ABG pCO2 35.9, ABG pO279.5 L, ABG HCO3 26.2, ABG Total CO2 27.3 H, ABG O2 Saturation 95.9, ABG O2 Content 7.6, ABG Base Excess 2.9, Set Respiration Rate 16, Vent Mode Ac, FiO2 40, Tidal Volume 500, PEEP 10, Critical Value 11/08/24 04:34: Corrected WBC 10.1, Uncorrected WBC Count 10.1, RBC 3.44 L, Hgb 12.0 L, Hct 35.4 L,MCV 102.8 H, MCH 34.8, MCHC 33.9, RDW 16.2 H, Plt Count 187,MPV 8.5, Neut % (Auto) 82.9, Lymph % (Auto) 8.7, [place] % (Auto) 8.2, Eos % (Auto)0.0, Baso % (Auto) 0.2, Nucleat RBC Rel Count 0.1, Neut # (Auto) 8.4 H, Lymph # (Auto) 0.9 L, [place] # (Auto) 0.8, Eos # (Auto) 0.0, Baso # (Auto) 0.0, PHA Creatinine Clear 80.25, Sodium 136, Potassium 4.1, Chloride 102, Carbon Dioxide 28.1, Anion Gap 10.0, BUN20, Creatinine 0.74, Est GFR (CKD-EPI) > 60.0, [id number] H, Calcium 8.5 L, Triglycerides 55 11/07/24 17:02: POC Glucose 167, POC Glucose Comment Glu2: cleaned meter 11/07/24 11:19: POC Glucose 126, POC Glucose Comment Glu2: cleaned meter 11/07/24 04:45: Phosphorus 3.1, Magnesium 2.3, Total Creatine Kinase 45 Assessment/Plan Assessment/Plan (1) Stridor: (2) Acute respiratory failure with hypoxia and hypercapnia: (3) Difficult airway for intubation: (4) JULI on CPAP: (5) Cervical myelopathy: (6) Alcohol abuse: Plan In summary patient is a 74-year-old male postop day 4 from C3-C6 posterior cervical laminectomies and fusion secondary to having cervical spondylotic myelopathy. At this time the patient will be evaluated by pulmonology team as well as ear nose and throat todaywith considerations to move towards extubation. He remains on Decadron 6 every 6 because of his airway. From neurosurgical perspective we will discontinue the drain today. He is on DVT prophylaxis currently is well as having tube feeds. Will defer the medical management per critical care team. Documented By: Reyes Bridges DO 11/08/24 0807 Signed By: 11/08/24 0809 [facility]04-20-2025 Progress note Author Brodie Nascimento [facility] Note Date/Time November 07, 2024 5:1 7pm [facility] [address] [place] [address] Pulmonology Progress Note Signed Patient: Michael Vaughn MR#: [id number] : 1950 Acct:[id number] Age/Sex: 74 / M Adm Date: 5 Loc: Room: [address] [place] [address] Type: ADM IN Attending Dr: Reyes Bridges DO Copies to: ~ Date of Service: 11/07/2024 Subjective Subjective Narrative: - reported transient junctional bradycardia with ST changes early AM but improved after switching propofol to versed gtt - no cuff leak this AM, no loss of volumes on vent during cuff leak test - moves all ext when sedation lightened Exam Physical Exam Vital Signs: Temp Pulse Resp BP Pulse Ox O2 Del Method O2 Flow Rate 97.9 F 50 L 16 145/70 H 95 Mechanical Ventilation 2 11/07/24 16:00 11/07/24 17:00 11/07/24 17:00 11/07/24 17:00 11/07/24 17:00 11/07/24 17:00 11/04/24 16:00 FiO2 40 11/07/24 17:00 Const Other: Gen: Chronically ill appearing intubated HENT: PERRL Neck: 6.5F ETT in place CVS: RRR -m/r/g Lungs: clear bilaterally Abd: soft non tender Ext: no LE edema good cap refill Neuro: sedated Objective Intake and Output I&O - Last 24 Hours: Intake & Output 11/07/24 11/07/24 11/07/24 07:59 15:59 23:59 Intake Total 1500 / 2340 840 / 2340 Output Total 750 / 1256 503 / 1256 3 / 1256 Balance 750 / 1084 337 / 1084 -3 / 1084 Weight 77.7 kg Labs 11/07/24 04:45 11/07/24 04:45 Assessment/Plan Assessment/Plan (1) Stridor: (2) Acute respiratory failure with hypoxia and hypercapnia: (3) Difficult airway for intubation: (4) JULI on CPAP: (5) Cervical myelopathy: (6) Alcohol abuse: Plan 74 yo M with severe stridor, likely acute on chronic, worse after his cervical neck surgery, with post op increased work of breathing and worsening acute respiratory acidosis, not rescued with racemic epi, decadron, and BIPAP, thus re-intubated with a 6.5F ETT. Hx of ETOH abuse, smoker, chronic syncopal episodes and falls, dysphagia, worsening shortness of breath and dysphagia recently. - still no air leak or loss of volumes during cuff leak test today - switched propofol to versed, [facility] seems to be better with benzos - will add folic acid and thiamine given ETOH hx - replace lytes aggressively - If this persists will have to get neuro and he may need continuous 24 hour EEG - Continue Zosyn for bibasilar consolidation, possibly aspirated during his airway compromise - Continue TF, GI and DVT prophylaxis - Will keep intubated and sedated over the weekend, ENT reportedly available starting tomorrow - Patient's updated at bedside today, all questions answered, she is appreciate of the care he is receiving - Dr. Mar is aware of the patient and will be taking over service tomorrow Critical Care Time: 45 Documented By: Brodie Nascimento MD 1712 Signed By: <Electronically signed by Brodie Nascimento MD> 11/07/241716 [facility] Work Phone: [phone] 124-674104-20-2025 [place] [id number] Pulmonology Progress Note Signed Patient: Michael Vaughn MR#: [id number] : 1950 Acct:[id number] Age/Sex: 74 / M Adm Date: 5 Loc: Room: [address] [place] [address] Type: ADM IN Attending Dr: Reyes Bridges DO Copies to: ~ Date of Service: 11/07/2024 Subjective Subjective Narrative: - reported transient junctional bradycardia with ST changes early AM but improved after switching propofol to versed gtt - no cuff leak this AM, no loss of volumes on vent during cuff leak test - moves all ext when sedation lightened Exam Physical Exam Vital Signs: Temp Pulse Resp BP Pulse Ox O2 Del Method O2 Flow Rate 97.9 F 50 L 16 145/70 H 95 Mechanical Ventilation 2 11/07/24 16:00 11/07/24 17:00 11/07/24 17:00 11/07/24 17:00 11/07/24 17:00 11/07/24 17:00 11/04/24 16:00 FiO2 40 11/07/24 17:00 Const Other: Gen: Chronically ill appearing intubated HENT: PERRL Neck: 6.[address]F [address] in place CVS: RRR -m/r/g Lungs: clear bilaterally Abd: soft non tender Ext: no LE edema good cap refill Neuro: sedated Objective Intake and Output I&O - Last 24 Hours: Intake & Output 11/07/24 11/07/24 11/07/24 07:59 15:59 23:59 Intake Total 1500 / 2340 840 / 2340 Output Total 750 / 1256 503 / 1256 3 / 1256 Balance 750 / 1084 337 / 1084 -3 / 1084 Weight 77.7 kg Labs 11/07/24 04:45 11/07/24 04:45 Assessment/Plan Assessment/Plan (1) Stridor: (2) Acute respiratory failure with hypoxia and hypercapnia: (3) Difficult airway for intubation: (4) JULI on CPAP: (5) Cervical myelopathy: (6) Alcohol abuse: Plan 74 yo M with severe stridor, likely acute on chronic, worse after his cervical neck surgery, with post op increased work of breathing and worsening acute respiratory acidosis, not rescued with racemic epi, decadron, and BIPAP, thus re-intubated with a 6.5F ETT. Hx of ETOH abuse, smoker, chronic syncopal episodes and falls, dysphagia, worsening shortness of breath and dysphagia recently. - still no air leak or loss of volumes during cuff leak test today - switched propofol to versed, unclear [facility], seems to be better with benzos - will add folic acid and thiamine given ETOH hx - replace lytes aggressively - If this persists will have to get neuro and he may need continuous 24 hour EEG - Continue Zosyn for bibasilar consolidation, possibly aspirated during his airway compromise - Continue TF, GI and DVT prophylaxis - Will keep intubated and sedated over the weekend, ENT reportedly available starting tomorrow - Patient's updated at bedside today, all questions answered, she is appreciate of the care heis receiving - Dr. Mar is aware of the patient and will be taking over service tomorrow Critical Care Time: 45 Documented By: Brodie Nascimento MD 1712 Signed By: 11/07/24 171 [facility]04-20-2025 Progress note Author Reyes Bridges [facility] Note Date/Time November 07, 2024 9:0 3am [facility] [address] [place] [address] Neurosurgery Progress Note Signed Patient: Michael Vaughn MR#: [id number] : 1950 Acct:[id number] Age/Sex: 74 / M Adm Date: 5 Loc: Room: [address] [place] [address] Type: ADM IN Attending Dr: Reyes Bridges DO Copies to: ~ Date of Service: 11/07/2024 Subjective Subjective HPI: Patient was seen and examined at bedside this morning on morning rounds. I did review the chart where it appears that this patient's got a questionable historyof drinking 4-5 beers a day. He has been therefore given Ativan to help with agitation. He has been switched to Versed and fentanyl. It does appear that his oxygen requirements are down to 40% now. He is grossly moving all of his extremities. Exam Physical Exam Vital Signs: Temp Pulse Resp BP Pulse Ox O2 Del Method O2 Flow Rate 97.9 F 51 L 17 165/78 H 97 Mechanical Ventilation 2 11/07/24 08:00 11/07/24 08:00 11/07/24 08:00 11/07/24 08:00 11/07/24 08:00 11/07/24 08:00 11/04/24 16:00 FiO2 40 11/07/24 08:00 Narrative: Intubated, opens eyes Moves all extremities Follows basic commands SILT Drain in place Objective Lab Results Most Recent Labs: 11/07/24 06:15: Sample Site Right brachial, ABG pH 7.42, ABG pCO2 40.0, ABG pO2 92.7, ABG HCO3 25.6, ABG Total CO2 26.8, ABG O2 Saturation 96.8, ABG O2 Content 7.6, ABG Base Excess 1.2, Set Respiration Rate 16, Vent Mode Ac, FiO2 40, Tidal Volume 500, PEEP 10, Critical Value 11/07/24 04:45: Corrected WBC 8.6, Uncorrected WBC Count 8.6, RBC 3.20 L, Hgb 11.3 L, Hct 33.1 L, MCV 103.5 H, MCH 35.4 H, MCHC 34.2, RDW 16.5 H, Plt Count 177, MPV 8.3, Neut % (Auto) 85.5, Lymph % (Auto) 7.3, [place] % (Auto) 7.2, Eos % (Auto) 0.0, Baso % (Auto) 0.0, Nucleat RBC Rel Count 0.0, Neut # (Auto) 7.4, Lymph # (Auto) 0.6 L, [place] # (Auto) 0.6, Eos # (Auto) 0.0, Baso # (Auto) 0.0, PHA Creatinine Clear 80.25, Sodium 138, Potassium 3.9, Chloride 106, Carbon Dioxide 27.2, Anion Gap 8.7, BUN 17, Creatinine 0.76, Est GFR (CKD-EPI) > 60.0, Glucose 162 H, Calcium 8.3 L, Triglycerides 34 L 11/06/24 23:37: POC Glucose 154 11/06/24 17:18: POC Glucose 175, POC Glucose Comment Glu2: cleaned meter 11/06/24 11:15: POC Glucose 155, POC Glucose Comment Glu2: cleaned meter Assessment/Plan Assessment/Plan (1) Stridor: (2) Acute respiratory failure with hypoxia and hypercapnia: (3) Difficult airway for intubation: (4) JULI on CPAP: (5) Cervical myelopathy: (6) Alcohol abuse: Plan In summary as patient is a 74-year-old male postoperative day 3 from a posteriorcervical laminectomies from C3-C6 with lateral mass screw placements secondary to having cervical spondylotic myelopathy. At this time I discussed with the nursing staff his blood pressure and discusseduse of hydralazine but will defer to the expertise of her critical care doctor. We discussed his decreasing FiO2 requirement. We discussed recommendations fromyou nose and throat doctors tomorrow with extubation. I discussed with the nursing staff that the drain will most likely be discontinued yesterday from hisposterior cervical incision site. I also discussed this case with the patient'osmany Donald yesterday over the phone to which she tells me that she is very pleased with the care that he is receiving and is pleased with everything. I answered any questions she had at that time. Documented By: Reyes Bridges DO 11/07/24 09 Signed By: <Electronically signed by Reyes Bridges DO> 11/07/24 0903 [facility] Work Phone: [phone]) [phone] [place] [address] Neurosurgery Progress Note Signed Patient: Michael Vaughn MR#: [id number] : 1950 Acct:[id number] Age/Sex: 74 / M Adm Date: 5 Loc: Room: 6R0864-8 Type: ADM IN Attending Dr: Reyes Bridges DO Copies to: ~ Date of Service: 11/07/2024 Subjective Subjective HPI: Patient was seen and examined at bedside this morning on morning rounds. I did review the chart where it appears that this patient's got a questionable historyof drinking 4-5 beers a day. He has beentherefore given Ativan to help with agitation. He has been switched to Versed and fentanyl. It doesappear that his oxygen requirements are down to 40% now. He is grossly moving all of his extremities. Exam Physical Exam Vital Signs: Temp Pulse Resp BP Pulse Ox O2 Del Method O2 Flow Rate 97.9 F 51 L 17 165/78 H 97 Mechanical Ventilation 2 11/07/24 08:00 11/07/24 08:00 11/07/24 08:00 11/07/24 08:00 11/07/24 08:00 11/07/24 08:00 11/04/24 16:00 FiO2 40 11/07/24 08:00 Narrative: Intubated, opens eyes Moves all extremities Follows basic commands SILT Drain in place Objective Lab Results Most Recent Labs: 11/07/24 06:15: Sample Site Right brachial, ABG pH 7.42, ABG pCO2 40.0, ABG pO2 92.7, ABG HCO3 25.6, ABG Total CO2 26.8, ABG O2 Saturation 96.8, ABG O2 Content 7.6, ABG Base Excess 1.2, Set Respiration Rate 16, Vent Mode Ac, FiO2 40, Tidal Volume 500, PEEP 10, Critical Value 11/07/24 04:45: Corrected WBC 8.6, Uncorrected WBC Count 8.6, RBC 3.20 L, Hgb 11.3 L, Hct 33.1 L, MCV 103.5 H, MCH 35.4 H, MCHC 34.2, RDW 16.5 H, Plt Count 177, MPV 8.3, Neut % (Auto) 85.5, Lymph % (Auto) 7.3, [place] % (Auto) 7.2, Eos % (Auto) 0.0, Baso % (Auto) 0.0, Nucleat RBC Rel Count 0.0, Neut #(Auto) 7.4, Lymph # (Auto) 0.6 L, [place] # (Auto) 0.6, Eos # (Auto) 0.0, Baso # (Auto) 0.0, PHA Creatinine Clear 80.25, Sodium 138, Potassium 3.9, Chloride 106, Carbon Dioxide 27.2, Anion Gap 8.7, BUN 17, Creatinine 0.76, Est GFR (CKD-EPI) > 60.0, Glucose 162 H, Calcium 8.3 L, Triglycerides 34 L 11/06/24 23:37: POC Glucose 154 11/06/24 17:18: POC Glucose 175, POC Glucose Comment Glu2: cleaned meter 11/06/24 11:15: POC Glucose 155, POC Glucose Comment Glu2: cleaned meter Assessment/Plan Assessment/Plan (1) Stridor: (2) Acute respiratory failure with hypoxia and hypercapnia: (3) Difficult airway for intubation: (4) JULI on CPAP: (5) Cervical myelopathy: (6) Alcohol abuse: Plan In summary as patient is a 74-year-old male postoperative day 3 from a posteriorcervical laminectomies from C3-C6 with lateral mass screw placements secondary to having cervical spondylotic myelopathy. At this time I discussed with the nursing staff his blood pressure and discusseduse of hydralazine but will defer to the expertise of her critical care doctor. We discussed his decreasing FiO2 requirement. We discussed recommendations fromyou nose and throat doctors tomorrow with extubation. I discussed with the nursing staff that the drain will most likely be discontinued yesterday from hisposterior cervical incision site. I also discussed this case with the patient'swife Shabana yesterday overthe phone to which she tells me that she is very pleased with the care that he is receiving and is pleased with everything. I answered any questions she had at that time. Documented By: Reyes Bridges DO 11/07/24899 Signed By: 11/07/24 0903 [facility]04-19-2025 Progress note Author Brodie Nascimento [facility] Note Date/Time November 06, 2024 4:1 9pm [facility] [address] [place] [address] Pulmonology Progress Note Signed Patient: Michael Vaughn MR#: [id number] : 1950 Acct:[id number] Age/Sex: 74 / M Adm Date: 5 Loc: Room: [address] [place] [address] Type: ADM IN Attending Dr: Reyes Bridges DO Copies to: ~ Date of Service: 11/06/2024 Subjective Subjective Narrative: - reports of seizure-like activity even when sedated on the vent starts bearing down for several seconds - has not had any episodes for me this AM - minimal air leak with no loss of volumes during cuff leak test this AM; was slightly better yesterday - CT neck reports laryngeal edema but difficult to assess due to ETT in place; CT chest shows bibasilar consolidation - at bedside, admits he drinks 4-5 beers a day, last drink possibly day before surgery; continues to smoke - said he had frequent falls since Jul, would have episodes of syncope intermittently, breathing has been worse past few weeks even neighbors noted change in his voice; chronic dysphagia also worse Exam Physical Exam Vital Signs: Temp Pulse Resp BP Pulse Ox O2 Del Method O2 Flow Rate 97.5 F L 50 L 16 147/70 H 95 Mechanical Ventilation 2 11/06/24 12:00 11/06/24 15:00 11/06/24 15:00 11/06/24 15:00 11/06/24 15:00 11/06/24 15:00 11/04/24 16:00 FiO2 70 11/06/24 15:00 Const Other: Gen: Chronically ill appearing intubated HENT: PERRL Neck: 6.5F ETT in place CVS: RRR -m/r/g Lungs: clear bilaterally Abd: soft non tender Ext: no LE edema good cap refill Neuro: sedated Objective Intake and Output I&O - Last 24 Hours: Intake & Output 11/06/24 11/06/24 11/06/24 07:59 15:59 23:59 Intake Total 1400 / 3629 2229 / 3629 Output Total 650 / 1463 813 / 1463 Balance 750 / 2166 1416 / 2166 Labs 11/06/24 04:29 11/06/24 04:29 Assessment/Plan Assessment/Plan (1) Stridor: (2) Acute respiratory failure with hypoxia and hypercapnia: (3) Difficult airway for intubation: (4) JULI on CPAP: (5) Cervical myelopathy: (6) Alcohol abuse: Plan 74 yo M with severe stridor, likely acute on chronic, worse after his cervical neck surgery, with post op increased work of breathing and worsening acute respiratory acidosis, not rescued with racemic epi, decadron, and BIPAP, thus re-intubated with a 6.5F ETT. Hx of ETOH abuse, smoker, chronic syncopal episodes and falls, dysphagia, worsening shortness of breath and dysphagia recently. - CT neck shows laryngeal edema but difficult to assess due to already present ETT; however, looking at previous CTs it appears there has already been chronic narrowing of the area, and currently after 2 days of IV Decadron he has barely any cuff leak on a 6.5F ETT - I am also concerned about these seizure-like episodes [facility] while on high doses of Propofol and Fentanyl; it is possible thesecould be alcoholic delirium tremens however he has not had more of them today, he did receive a dose of Ativan and will continue this prn as he seems to respond to increasing sedation - If this persists will have to get neuro and he may need continuous 24 hour EEG - Continue Zosyn for bibasilar consolidation, possibly aspirated during his airway compromise - Continue TF, GI and DVT prophylaxis - Will keep intubated and sedated over the weekend, ENT reportedly available starting Friday - Patient's updated at bedside today, all questions answered, she is appreciate of the care he is receiving Critical Care Time: 45 Documented By: Brodie Nascimento MD 1603 Signed By: <Electronically signed by Brodie Nascimento MD> 11/06/24 1610 [facility] Work Phone: [phone]) [phone] [place] [address] Pulmonology Progress Note Signed Patient: Michael Vaughn MR#: [id number] : 1950 Acct:[id number] Age/Sex: 74 / M Adm Date: 5 Loc: Room: [address] [place] [address] Type: ADM IN Attending Dr: Reyes Bridges DO Copies to: ~ Date of Service: 11/06/2024 Subjective Subjective Narrative: - reports of seizure-like activity even when sedated on the vent starts bearing down for several seconds - has not had any episodes for me this AM - minimal air leak with no loss of volumes during cuff leak test this AM; was slightly better yesterday - CT neck reports laryngeal edema but difficult to assess due to ETT in place; CT chest shows bibasilar consolidation - at bedside, admits he drinks 4-5 beers a day, last drink possibly day before surgery; continues to smoke - said he had frequent falls since Jul, would have episodes of syncope intermittently, breathing has been worse past few weeks even neighbors noted change in his voice; chronic dysphagia also worse Exam Physical Exam Vital Signs: Temp Pulse Resp BP Pulse Ox O2 Del Method O2 Flow Rate 97.5 F L 50 L 16 147/70 H 95 Mechanical Ventilation 2 11/06/24 12:00 11/06/24 15:00 11/06/24 15:00 11/06/24 15:00 11/06/24 15:00 11/06/24 15:00 11/04/24 16:00 FiO2 70 11/06/24 15:00 Const Other: Gen: Chronically ill appearing intubated HENT: PERRL Neck: 6.5F ETT in place CVS: RRR -m/r/g Lungs: clear bilaterally Abd: soft non tender Ext: no LE edema good cap refill Neuro: sedated Objective Intake and Output I&O - Last 24 Hours: Intake & Output 11/06/24 11/06/24 11/06/24 07:59 15:59 23:59 Intake Total 1400 / 3629 2229 / 3629 Output Total 650 / 1463 813 / 1463 Balance 750 / 2166 1416 / 2166 Labs 11/06/24 04:29 11/06/24 04:29 Assessment/Plan Assessment/Plan (1) Stridor: (2) Acute respiratory failure with hypoxia and hypercapnia: (3) Difficult airway for intubation: (4) JULI on CPAP: (5) Cervical myelopathy: (6) Alcohol abuse: Plan 74 yo M with severe stridor, likely acute on chronic, worse after his cervical neck surgery, with post op increased work of breathing and worsening acute respiratory acidosis, not rescued with racemic epi, decadron, and BIPAP, thus re-intubated with a 6.5F ETT. Hx of ETOH abuse, smoker, chronic syncopal episodes and falls, dysphagia, worsening shortness of breath and dysphagia recently. - CT neck shows laryngeal edema but difficult to assess due to already present ETT; however, looking at previous CTs it appears there has already been chronic narrowing of the area, and currently after 2 days of IV Decadron he has barely any cuff leak on a 6.5F ETT - I am also concerned about these seizure-like episodes being [facility] by [facility] whileon high doses of Propofol and Fentanyl; it is possible thesecould be alcoholic delirium tremens however he has not had more of them today, he did receive a dose of Ativan and will continue this prn as he seems to respond to increasing sedation - If this persists will have to get neuro and he may need continuous 24 hour EEG - Continue Zosyn for bibasilar consolidation, possibly aspirated during his airway compromise - Continue TF, GI and DVT prophylaxis - Will keep intubated and sedated over the weekend, ENT reportedly available starting Friday - Patient's updated at bedside today, all questions answered, she is appreciate of the care heis receiving Critical Care Time: 45 Documented By: Brodie Nascimento MD 1604 Signed By: 11/06/24 1619 [facility]04-19-2025 Progress note Author Reyes Bridges [facility] Note Date/Time November 06, 2024 9:5 5am [facility] [address] [place] [address] Neurosurgery Progress Note Signed Patient: Michael Vaughn MR#: [id number] : 1950 Acct:[id number] Age/Sex: 74 / M Adm Date: 5 Loc: Room: [address] [place] [address] Type: ADM IN Attending Dr: Reyes Bridges DO Copies to: ~ Date of Service: 11/06/2024 Subjective Subjective HPI: Patient was seen and examined at bedside this morning. Discussed care with the patient's nurse where the oxygen requirements did go up slightly. He is on propofol at 50 as well as fentanyl at 100 but will awaken and follow basic commands. He is moving all extremities. Exam Physical Exam Vital Signs: Temp Pulse Resp BP Pulse Ox O2 Del Method O2 Flow Rate 98.0 F 51 L 16 132/63 97 Mechanical Ventilation 2 11/06/24 08:00 11/06/24 09:34 11/06/24 09:00 11/06/24 09:34 11/06/24 09:00 11/06/24 09:00 11/04/24 16:00 FiO2 70 11/06/24 09:00 Narrative: Intubated, opens eyes Moves all extremities Follows basic commands SILT Drain in place Objective Lab Results Most Recent Labs: 11/06/24 05:47: Sample Site Right radial, ABG pH 7.48 H, ABG pCO2 32.1 L, ABG pO2 133.7 H*, ABG HCO3 23.4, ABG Total CO2 24.4, ABG O2 Saturation 98.8, ABG O2 Content 7.6, ABG Base Excess 0.5, Set Respiration Rate 16, Vent Mode Ac, FiO2 70, Tidal Volume 500, PEEP 10, Critical Value 11/06/24 04:29: Corrected WBC 8.8, Uncorrected WBC Count 8.8, RBC 3.16 L, Hgb 11.2 L, Hct 33.1 L, MCV 104.7 H, MCH 35.5 H, MCHC 33.9, RDW 16.6 H, Plt Count 184, MPV 8.0, Neut % (Auto) 85.2, Lymph % (Auto) 7.1, [place] % (Auto) 7.5, Eos % (Auto) 0.0, Baso % (Auto) 0.2, Nucleat RBC Rel Count 0.1, Neut # (Auto) 7.5, Lymph # (Auto) 0.6 L, [place] # (Auto) 0.7, Eos # (Auto) 0.0, Baso # (Auto) 0.0, PHA Creatinine Clear 84.03, Sodium 138, Potassium 3.9, Chloride 103, Carbon Dioxide 26.6, Anion Gap 12.3, BUN 16, Creatinine 0.73, Est GFR (CKD-EPI) > 60.0,Glucose 162 H, Calcium 8.4 L, Triglycerides 70 11/06/24 00:00: POC Glucose 144 11/05/24 20:36: POC Glucose 124 11/05/24 18:32: POC Glucose 151 11/05/24 11:48: POC Glucose 163, POC Glucose Comment Glu2: cleaned meter 11/05/24 04:07: Triglycerides 54 Assessment/Plan Assessment/Plan (1) Stridor: (2) Acute respiratory failure with hypoxia and hypercapnia: (3) Difficult airway for intubation: (4) JULI on CPAP: (5) Cervical myelopathy: Plan In summary patient is a 74-year-old male postoperative day 2 from C3-C6 posterior cervical laminectomies and fusion secondary to having cervical spondylotic myelopathy with severe stenosis and underlying history apparently ofstridor as well as subglottic narrowing. At this time I have independent reviewed the CT of the neck specifically lookingat our postoperative changes in terms of the fusion and laminectomies. I also discussed this case with the patient's nurse reviewing the notes with the intentions of ear nose and throat recommendations given patient's subglottic narrowing as well as a stridor that he had both that after surgery as well as what we found out was before surgery 2. From neurosurgical perspective I made recommendations to wean sedation and to keep it low so we can obtain her neuroexams. The drain will stay in place as well. I discussed DVT prophylaxis as well. And will defer the pulmonary critical care management per those respective teams. Documented By: Reyes Bridges DO 11/06/24 0952 Signed By: <Electronically signed by Reyes Bridges DO> 11/06/24 0955 [facility] Work Phone: [phone]) [phone] [place] [address] Neurosurgery Progress Note Signed Patient: Michael Vaughn MR#: [id number] : 1950 Acct:[id number] Age/Sex: 74 / M Adm Date: 5 Loc: Room: [address] [place] [address] Type: ADM IN Attending Dr: Reyes Bridges DO Copies to: ~ Date of Service: 11/06/2024 Subjective Subjective HPI: Patient was seen and examined at bedside this morning. Discussed care with the patient's nurse where the oxygen requirements did go up slightly. He is on propofol at 50 as well as fentanyl at 100 butwill awaken and follow basic commands. He is moving all extremities. Exam Physical Exam Vital Signs: Temp Pulse Resp BP Pulse Ox O2 Del Method O2 Flow Rate 98.0 F 51 L 16 132/63 97 Mechanical Ventilation 2 11/06/24 08:00 11/06/24 09:34 11/06/24 09:00 11/06/24 09:34 11/06/24 09:00 11/06/24 09:00 11/04/24 16:00 FiO2 70 11/06/24 09:00 Narrative: Intubated, opens eyes Moves all extremities Follows basic commands SILT Drain in place Objective Lab Results Most Recent Labs: 11/06/24 05:47: Sample Site Right radial, ABG pH 7.48 H, ABG pCO2 32.1 L, ABG pO2 133.7 H*, ABG HCO3 23.4, ABG Total CO2 24.4, ABG O2 Saturation 98.8, ABG O2 Content 7.6, ABG Base Excess 0.5, Set Respiration Rate 16, Vent Mode Ac, FiO2 70, Tidal Volume 500, PEEP 10, Critical Value 11/06/24 04:29: Corrected WBC 8.8, Uncorrected WBC Count 8.8, RBC 3.16 L, Hgb 11.2 L, Hct 33.1 L, MCV 104.7 H, MCH 35.5 H, MCHC 33.9, RDW 16.6 H, Plt Count 184, MPV 8.0, Neut % (Auto) 85.2, Lymph % (Auto) 7.1, [place] % (Auto) 7.5, Eos % (Auto) 0.0, Baso % (Auto) 0.2, Nucleat RBC Rel Count 0.1, Neut #(Auto) 7.5, Lymph # (Auto) 0.6 L, [place] # (Auto) 0.7, Eos # (Auto) 0.0, Baso # (Auto) 0.0, PHA Creatinine Clear 84.03, Sodium 138, Potassium 3.9, Chloride 103, Carbon Dioxide 26.6, Anion Gap 12.3, BUN16, Creatinine 0.73, Est GFR (CKD-EPI) > 60.0,Glucose 162 H, Calcium 8.4 L, Triglycerides 70 11/06/24 00:00: POC Glucose 144 11/05/24 20:36: POC Glucose 124 11/05/24 18:32: POC Glucose 151 11/05/24 11:48: POC Glucose 163, POC Glucose Comment Glu2: cleaned meter 11/05/24 04:07: Triglycerides 54 Assessment/Plan Assessment/Plan (1) Stridor: (2) Acute respiratory failure with hypoxia and hypercapnia: (3) Difficult airway for intubation: (4) JULI on CPAP: (5) Cervical myelopathy: Plan In summary patient is a 74-year-old male postoperative day 2 from C3-C6 posterior cervical laminectomies and fusion secondary to having cervical spondylotic myelopathy with severe stenosis and underlying history apparently ofstridor as well as subglottic narrowing. At this time I have independent reviewed the CT of the neck specifically lookingat our postoperative changes in terms of the fusion and laminectomies. I also discussed this case with the patient's nurse reviewing the notes with the intentions of ear nose and throat recommendations given patient's subglottic narrowing as well as a stridor that he had both that after surgery as well as what we found out was before surgery 2. From neurosurgical perspective I made recommendations to wean sedation and to keep it low so we can obtain her neuroexams. The drain will stay in place as well. I discussedDVT prophylaxis as well. And will defer the pulmonary critical care management per those respective teams. Documented By: Reyes Bridges DO 11/06/24 0952 Signed By: 11/06/24 0955 [facility]04-18-2025 Progress note Author Brodie Nascimento [facility] Note Date/Time November 05, 2024 5:3 9pm [facility] [address] [place] [address] Pulmonology Progress Note Signed Patient: Michael Vaughn MR#: [id number] : 1950 Acct:[id number] Age/Sex: 74 / M Adm Date: 5 Loc: Room: [address] [place] [address] Type: ADM IN Attending Dr: Reyes Bridges DO Copies to: ~ Date of Service: 11/05/2024 Subjective Subjective Narrative: - re-intubated yesterday after worsening stridor leading to worsening acute respiratory failure with hypoxia and hypercapnia, AMS - currently on propofol/fentanyl, did have increased O2 requirements overnight, was on 60% PEEP 8 this AM - minimal air leak this AM Exam Physical Exam Vital Signs: Temp Pulse Resp BP Pulse Ox O2 Del Method O2 Flow Rate 97.1 F L 48 L 16 147/67 H 16 L Mechanical Ventilation 2 11/05/24 16:00 11/05/24 16:25 11/05/24 16:25 11/05/24 16:00 11/05/24 16:00 11/05/24 16:00 11/04/24 16:00 FiO2 65 11/05/24 16:25 Const Other: Gen: Chronically ill appearing intubated HENT: PERRL Neck: 6.5F ETT in place CVS: RRR -m/r/g Lungs: clear bilaterally Abd: soft non tender Ext: no LE edema good cap refill Neuro: sedated Objective Intake and Output I&O - Last 24 Hours: Intake & Output 11/05/24 11/05/24 11/05/24 07:59 15:59 23:59 Intake Total 230 / 1750 1520 / 1750 Output Total 395 / 705 310 / 705 0 / 705 Balance -165 / 1045 1210 / 1045 0 / 1045 Labs 11/05/24 04:07 11/05/24 04:07 Assessment/Plan Assessment/Plan (1) Stridor: (2) Acute respiratory failure with hypoxia and hypercapnia: (3) Difficult airway for intubation: (4) JULI on CPAP: (5) Cervical myelopathy: Plan 74 yo M with severe stridor, likely acute on chronic, worse after his cervical neck surgery, with post op increased work of breathing and worsening acute respiratory acidosis, not rescued with racemic epi, decadron, and BIPAP, thus re-intubated with a 6.5F ETT. - I have been made aware there is no ENT system controller this weekend; Dr. Bridges is also aware of this; discussed with radiology, even though it will be difficult to assess laryngeal obstruction with the ETT in place, need to r/o abscess or other potential fluid collection that could be causing the obstruction to be worse - On review of previous neck CTs, there was already evidence of narrowing at thesubglottic area - Continue Decadron 6 mg q 6 H; plan will be to do daily cuff leak tests, and in24-[address] to see if swelling has come down - Will need ENT and Anesthesia available before planning extubation as he is at very high risk of extubation and re-intubation failure - Also add a chest CT for today and switch atbx to Zosyn for concern of aspiration PNA prior to re-intubation - Will increase Tidal volume and PEEP to maintain recruitment, low lung volumes on CXR this AM - Continue sedation, restraints; need to make sure he does not accidentally selfextubate - Start TF; DVT and GI prophylaxis - SSI if BG remains elevated Critical Care Time: 60 Documented By: Brodie Nascimento MD 172 Signed By: <Electronically signed by Brodie Nascimento MD> 11/05/24 173 [facility] Work Phone: 1(856) 842-143104-18-2025 [place] [id number] Pulmonology Progress Note Signed Patient: Michael Vaughn MR#: [id number] : 1950 Acct:[id number] Age/Sex: 74 / M Adm Date: 5 Loc: Room: [address] [place] [address] Type: ADM IN Attending Dr: Reyes Bridges DO Copies to: ~ Date of Service: 11/05/2024 Subjective Subjective Narrative: - re-intubated yesterday after worsening stridor leading to worsening acute respiratory failure with hypoxia and hypercapnia, AMS - currently on propofol/fentanyl, did have increased O2 requirements overnight, was on 60% PEEP 8 this AM - minimal air leak this AM Exam Physical Exam Vital Signs: Temp Pulse Resp BP Pulse Ox O2 Del Method O2 Flow Rate 97.1 F L 48 L 16 147/67 H 16 L Mechanical Ventilation 2 11/05/24 16:00 11/05/24 16:25 11/05/24 16:25 11/05/24 16:00 11/05/24 16:00 11/05/24 16:00 11/04/24 16:00 FiO2 65 11/05/24 16:25 Const Other: Gen: Chronically ill appearing intubated HENT: PERRL Neck: 6.5F ETT in place CVS: RRR -m/r/g Lungs: clear bilaterally Abd: soft non tender Ext: no LE edema good cap refill Neuro: sedated Objective Intake and Output I&O - Last 24 Hours: Intake & Output 11/05/24 11/05/24 11/05/24 07:59 15:59 23:59 Intake Total 230 / 1750 1520 / 1750 Output Total 395 / 705 310 / 705 0 / 705 Balance -165 / 1045 1210 / 1045 0 / 1045 Labs 11/05/24 04:07 11/05/24 04:07 Assessment/Plan Assessment/Plan (1) Stridor: (2) Acute respiratory failure with hypoxia and hypercapnia: (3) Difficult airway for intubation: (4) JULI on CPAP: (5) Cervical myelopathy: Plan 74 yo M with severe stridor, likely acute on chronic, worse after his cervical neck surgery, with post op increased work of breathing and worsening acute respiratory acidosis, not rescued with racemic epi, decadron, and BIPAP, thus re-intubated with a 6.5F ETT. - I have been made aware there is no ENT system controller this weekend; Dr. Bridges is also aware of this; discussed with radiology, even though it will be difficult to assess laryngeal obstruction with the ETT in place, need to r/o abscess or other potential fluid collection that could be causing the obstruction to be worse - On review of previous neck CTs, there was already evidence of narrowing at thesubglottic area - Continue Decadron 6 mg q 6 H; plan will be to do daily cuff leak tests, and in24-[address] to see if swelling has come down - Will need ENT and Anesthesia available before planning extubation as he is at very high risk of extubation and re-intubation failure - Also add a chest CT for today and switch atbx to Zosyn for concern of aspiration PNA prior to re-intubation - Will increase Tidal volume and PEEP to maintain recruitment, low lung volumes on CXR this AM - Continue sedation, restraints; need to make sure he does not accidentally selfextubate - Start TF; DVT and GI prophylaxis - SSI if BG remains elevated Critical Care Time: 60 Documented By: Brodie Nascimento MD 1721 Signed By: 11/05/241738 [facility]04-18-2025 Radiology Diagnostic study note [facility] [place] [address] [place] [address] CT Scan Report Signed Patient: Michael Vaughn MR#: [id number] : 1950 Acct:[id number] Age/Sex: 74 / M ADM Date: 5 Loc: Room: [address] [place] [address] Type: ADM IN Attending Dr: Reyes Bridges DO Copies to: DO Brodie Arias MD~ Ordering Provider: Brodie Nascimento MD Date of Service: 11/05/24 CT/CT soft tissue neck w con: subglottic stenosis CT Neck with contrast TECHNIQUE: Axial imaging with 2-D reconstruction. 90cc of Isovue-[address] exam was performed using one or more the following dose reduction techniques: Automated exposure control, adjustment of the MA and/or Kvaccording to patient size, or use of the iterative reconstruction technique. HISTORY: Concern for subglottic stenosis. Difficulty with intubation. History of respiratory failure. Ventilated patient. Postop fusion at the C3-C6 levels. COMPARISON:10/12/2024 CT of the cervical spine ORAL CAVITY: ANTERIOR TWO THIRDS OF THE TONGUE: Unremarkable ROOF OF THE MOUTH: Unremarkable BUCCAL CAVITY: Unremarkable FLOOR OF THE MOUTH: Unremarkable DENTITION: Unremarkable TONSILS: Unremarkable PHARYNX: NASOPHARYNX: Unremarkable OROPHARYNX: Unremarkable TONGUE BASE: Unremarkable HYPOPHARYNX: Unremarkable EPIGLOTTIS: The epiglottis is normal. LARYNX: Potential mild laryngeal edema and retained secretions. No laryngeal lesion or fluid collection. Thyroid cartilage unchanged. The cricoid cartilage unremarkable. Hyoid bone unremarkable. Mild subglottic edema. Patent endotracheal tube. NECK SPACES: VISCERAL SPACE: Unremarkable CAROTID SPACE: Unremarkable RETROPHARYNGEAL SPACE: Unremarkable POSTERIOR CERVICAL SPACE: Unremarkable PREVERTEBRAL SPACE: Unremarkable CAROTID CIRCULATION AND JUGULAR VEINS No vascular abnormality identified. ADENOPATHY: No significant adenopathy identified. The levels assessed include the submental and submandibular, upper jugular, mid jugular, lower jugular and medial supraclavicular, posterior triangleand supraclavicular, anterior cervical, retropharyngeal and retrostyloid, parotid, buccofacial, and retroauricular and occipital. SALIVARY GLANDS: PAROTID GLANDS: Unremarkable SUBMANDIBULAR GLANDS: Unremarkable SUBLINGUAL GLANDS: Unremarkable THYROID GLAND: No thyroid nodule identified. BONES:C3-C6 to postsurgical fusion changes with decompression. Multilevel cervical spondylosis and hyperostosis. NG tube in esophagus tip out of the field of view. The ET tube tip is in the trachea in adequate position. CT/CT soft tissue neck w con IMPRESSION: ET tube in adequate position. Findings suggesting mild laryngeal edema and retained secretions. No obvious subglottic stenosis. No distinct fluid collection or hematoma. Unremarkable postsurgical changes of posterior cervical spine fusion and decompression. Impression dictated by: Alhaji Stewart M.D.11/05/2024 4:35 PM Dictation Location: [place] [address] Transcribed By: [facility] 11/05/24 1635 Dictated By: Alhaji Stewart DO 11/05/24 1624 Signed By: 11/05/24 1635 [facility]04-18-2025 Radiology Diagnostic study note [facility] [place] [address] [place] [address] CT Scan Report Signed Patient: Michael Vaughn MR#: [id number] : 1950 Acct:[id number] Age/Sex: 74 / M ADM Date: 5 Loc: Room: [address] [place] [address] Type: ADM IN Attending Dr: Reyes Bridges DO Copies to: DO Brodie Arias MD~ Ordering Provider: Brodie Nascimento MD Date of Service: 11/05/24 CT/CT chest w con: respiratory failure with hypoxia CT CHEST WITH INTRAVENOUS CONTRAST: CLINICAL HISTORY: Respiratory failure. COMPARISON: Chest 11/05/2024 TECHNIQUE: Spiral images were obtained through the chest following intravenous administration of IVcontrast. This CT exam was performed using one or more following dose reduction techniques: Automated exposure control, adjustment of the mA and/or kV according to patient size, or use of iterative reconstruction technique. FINDINGS: Mediastinum:ET tube is in satisfactory position. Enteric tube is seen within the stomach. Thoracic aorta appears normal in caliber. Pulmonary trunk appearsnondilated. No pericardial effusion. No lymphadenopathy. The esophagus is grossly unremarkable. Lungs:Consolidative changes involving the lower lobes. Mild scarring involving the upper lobes. No pneumothorax. No pleural effusion. Abd:No acute process. Soft tissues/Bones: No acute process. Osseous structures demonstrate degenerative change. CT/CT chest w con IMPRESSION: Tubes are in satisfactory positions. Consolidative changes involving the lower lobe suspicious for pneumonia. Impression dictated by: Sea Stevenson Jr., D.O.11/05/2024 2:58 PM Dictation Location: [place] [address] Transcribed By: [facility] 11/05/24 145 Dictated By: Sea Stevenson Jr, DO 11/05/24 145 Signed By: 11/05/24 1458 [facility]04-18-2025 Progress note Author Reyes Bridges [facility] Note Date/Time November 05, 2024 7:5 8am [facility] [address] [place] [address] Neurosurgery Progress Note Signed Patient: Michael Vaughn MR#: [id number] : 1950 Acct:[id number] Age/Sex: 74 / M Adm Date: 5 Loc: Room: [address] [place] [address] Type: ADM IN Attending Dr: Reyes Bridges DO Copies to: ~ Date of Service: 11/05/2024 Subjective Subjective HPI: 74-year-old male postoperative day 1 from C3-C6 posterior cervical fusion with laminectomy secondary having cervical spondylotic myelopathy. He was seen postop and was noted to have stridor which he does have a baseline knowledge of preoperatively. Because of the stridor he was admitted to the ICU where he was ultimately intubated at the direction of pulmonology. He was seen and examined this morning remaining intubated. Exam Physical Exam Vital Signs: Temp Pulse Resp BP Pulse Ox O2 Del Method O2 Flow Rate 97.9 F 57 L 16 134/63 98 Mechanical Ventilation 2 11/05/24 04:00 11/05/24 07:00 11/05/24 07:00 11/05/24 07:00 11/05/24 07:00 11/05/24 07:00 11/04/24 16:00 FiO2 65 11/05/24 07:00 Narrative: Intubated, opens eyes Moves all extremities Follows basic commands SILT Drain in place Objective Lab Results Most Recent Labs: 11/05/24 04:50: Sample Site Left brachial, ABG pH 7.40, ABG pCO2 47.3 H, ABG pO264.0 L, ABG HCO3 28.3, ABG Total CO2 29.8 H, ABG O2 Saturation 91.4 L, ABG O2 Content 7.0, ABG Base Excess 2.8, Set Respiration Rate 16, Vent Mode Ac, FiO2 60, Tidal Volume 400, PEEP 8, Critical Value 11/05/24 04:07: Corrected WBC 6.2, Uncorrected WBC Count 6.2, RBC 3.23 L, Hgb 11.5 L, Hct 33.8 L, MCV 104.7 H, MCH 35.6 H, MCHC 34.0, RDW 16.6 H, Plt Count 212, MPV 8.0, Neut % (Auto) 80.2, Lymph % (Auto) 8.4, [place] % (Auto) 11.3, Eos % (Auto) 0.0, Baso % (Auto) 0.1, Nucleat RBC Rel Count 0.2, Neut # (Auto) 5.0, Lymph # (Auto) 0.5 L, [place] # (Auto) 0.7, Eos # (Auto) 0.0, Baso # (Auto) 0.0, PHA Creatinine Clear 84.03, Sodium 138, Potassium 4.1, Chloride 104, Carbon Dioxide 28.3, Anion Gap 9.8, BUN 19, Creatinine 0.79, Est GFR (CKD-EPI) > 60.0, Glucose 138 H, Calcium 8.3 L, Magnesium 1.9 11/04/24 23:50: POC Glucose 197, POC Glucose Comment Glu2: cleaned meter 11/04/24 17:30: Sample Site Left radial, ABG pH 7.14 L*, ABG pCO2 86.8 H*, ABG pO2 147.2 H*, ABG HCO3 28.6, ABG Total CO2 31.3 H, ABG O2 Saturation 98.2, ABG O2 Content 8.6, ABG Base Excess -2.8, O2 Delivery Device Bipap, FiO2 50, PEEP 11, Critical Value 11/04/24 16:27: Sample Site Left radial, ABG pH 7.18 L*, ABG pCO2 81.5 H*, ABG pO2 129.7 H*, ABG HCO3 29.6 H, ABG Total CO2 32.1 H, ABG O2 Saturation 97.8, ABGO2 Content 8.5, ABG Base Excess -1.0, O2 Delivery Device Bipap, FiO2 50, PEEP 6,Critical Value 11/04/24 14:39: Sample Site Left radial, ABG pH 7.23 L, ABG pCO2 61.1 H*, ABG pO2 110.0 H, ABG HCO3 25.1, ABG Total CO2 27.0, ABG O2 Saturation 97.1, ABG O2 Content 8.5, ABG Base Excess -3.5 L, O2 Delivery Device Nasal cannula, Liter Flow 5, FiO2 42, Critical Value Assessment/Plan Assessment/Plan (1) Stridor: (2) Acute respiratory failure with hypoxia and hypercapnia: (3) Difficult airway for intubation: (4) JULI on CPAP: (5) Cervical myelopathy: Plan In summary as patient is a 74-year-old male postop day 1 from a posterior cervical laminectomy fusion through C3-C6 secondary to having cervical spondylotic myelopathy. At this time I am deferring his pulmonology status to the software qa system specialist. He will remain in ICU and will defer that management towards his software qa system specialist. Documented By: Reyes Bridges DO 11/05/24 0755 Signed By: <Electronically signed by Reyes Bridges DO> 11/05/24 0758 [facility] Work Phone: [phone] 132-535404-18-2025 [place] [address] Neurosurgery Progress Note Signed Patient: Michael Vaughn MR#: [id number] : 1950 Acct:[id number] Age/Sex: 74 / M Adm Date: 5 Loc: Room: [address] [place] [address] Type: ADM IN Attending Dr: Reyes Bridges DO Copies to: ~ Date of Service: 11/05/2024 Subjective Subjective HPI: 74-year-old male postoperative day 1 from C3-C6 posterior cervical fusion with laminectomy secondary having cervical spondylotic myelopathy. He was seen postop and was noted to have stridor which he does have a baseline knowledge of preoperatively. Because of the stridor he was admitted to the ICU where he was ultimately intubated at the direction of pulmonology. He was seen and examined this morning remaining intubated. Exam Physical Exam Vital Signs: Temp Pulse Resp BP Pulse Ox O2 Del Method O2 Flow Rate 97.9 F 57 L 16 134/63 98 Mechanical Ventilation 2 11/05/24 04:00 11/05/24 07:00 11/05/24 07:00 11/05/24 07:00 11/05/24 07:00 11/05/24 07:00 11/04/24 16:00 FiO2 65 11/05/24 07:00 Narrative: Intubated, opens eyes Moves all extremities Follows basic commands SILT Drain in place Objective Lab Results Most Recent Labs: 11/05/24 04:50: Sample Site Left brachial, ABG pH 7.40, ABG pCO2 47.3 H, ABG pO264.0 L, ABG HCO3 28.3, ABG Total CO2 29.8 H, ABG O2 Saturation 91.4 L, ABG O2 Content 7.0, ABG Base Excess 2.8, Set Respiration Rate 16, Vent Mode Ac, FiO2 60, Tidal Volume 400, PEEP 8, Critical Value 11/05/24 04:07: Corrected WBC 6.2, Uncorrected WBC Count 6.2, RBC 3.23 L, Hgb 11.5 L, Hct 33.8 L, MCV 104.7 H, MCH 35.6 H, MCHC 34.0, RDW 16.6 H, Plt Count 212, MPV 8.0, Neut % (Auto) 80.2, Lymph % (Auto) 8.4, [place] % (Auto) 11.3, Eos % (Auto) 0.0, Baso % (Auto) 0.1, Nucleat RBC Rel Count 0.2, Neut # (Auto) 5.0, Lymph # (Auto) 0.5 L, [place] # (Auto) 0.7, Eos # (Auto) 0.0, Baso # (Auto) 0.0, PHA Creatinine Clear 84.03, Sodium 138, Potassium 4.1, Chloride 104, Carbon Dioxide 28.3, Anion Gap 9.8, BUN19, Creatinine 0.79, Est GFR (CKD-EPI) > 60.0, Glucose 138 H, Calcium 8.3 L, Magnesium 1.9 11/04/24 23:50: POC Glucose 197, POC Glucose Comment Glu2: cleaned meter 11/04/24 17:30: Sample Site Left radial, ABG pH 7.14 L*, ABG pCO2 86.8 H*, ABG pO2 147.2 H*, ABG HCO3 28.6, ABG Total CO2 31.3 H, ABG O2 Saturation 98.2, ABG O2 Content 8.6, ABG Base Excess -2.8, O2 Delivery Device Bipap, FiO2 50, PEEP 11, Critical Value 11/04/24 16:27: Sample Site Left radial, ABG pH 7.18 L*, ABG pCO2 81.5 H*, ABG pO2 129.7 H*, ABG HCO3 29.6 H, ABG Total CO2 32.1 H, ABG O2 Saturation 97.8, ABGO2 Content 8.5, ABG Base Excess -1.0, [id number] Device Bipap, FiO2 50, PEEP 6,Critical Value 11/04/24 14:39: Sample Site Left radial, ABG pH 7.23 L, ABG pCO2 61.1 H*, ABG pO2 110.0 H, ABG IWA182.1, ABG Total CO2 27.0, ABG O2 Saturation 97.1, ABG O2 Content 8.5, ABG Base Excess -3.5 L, O2 Delivery Device Nasal cannula, Liter Flow 5, FiO2 42, Critical Value Assessment/Plan Assessment/Plan (1) Stridor: (2) Acute respiratory failure with hypoxia and hypercapnia: (3) Difficult airway for intubation: (4) JULI on CPAP: (5) Cervical myelopathy: Plan In summary as patient is a 74-year-old male postop day 1 from a posterior cervical laminectomy fusion through C3-C6 secondary to having cervical spondylotic myelopathy. At this time I am deferring his pulmonology status to the software qa system specialist. He will remain in ICU and will defer that management towards his software qa system specialist. Documented By: Reyes Bridges DO 11/05/24754 Signed By: 11/05/24 0758 [facility]04-17-2025 Consult note Author Brodie Nascimento [facility] Note Date/Time November 04, 2024 7:4 5pm [facility] [address] [place] [address] Pulmonology Consult Note Signed Patient: Michael Vaughn MR#: [id number] : 1950 Acct:[id number] Age/Sex: 74 / M Adm Date: 5 Loc: Room: [address] [place] [address] Type: ADM IN Attending Dr: Reyes Bridges DO Copies to: DO Rolan Arias, [employer] Brodie Nascimento MD~ [facility] Date/Time of Consultation: Date of Service: 11/04/2024 Time of Service: 19:20 Consulting Provider: Brodie Nascimento Requesting Provider: Reyes Bridges History of Present Illness History of present illness: Mr. Vaughn is a 74 year old male who presented today for elective cervical spine surgery. Post op they noted stridor and was transferred to the ICU. He appears to have a more complex history. His claims he has been having stridor for awhile and has also been having falls, occasionally would fall asleep even whilesitting at the dinner table. He was recently started on CPAP for JULI. When I wasconsulted to assess the patient in the ICU, his stridor was almost high pitched,and he was retracting. He had a cervical collar on. There was minimal air movement on chest auscultation. He initially was hard to arouse. He attempted nebulized Racemic Epinephrine, gave a dose of Dexamethasone 8mg IV. ABg showed acute respiratory acidosis with ph of 7.23 and PCO2 of 61. Dr. Bridges and Dr. Hurtado came to the bedside and we all re-assessed the patient. We decided to proceed with re- intubation however he woke up and started talking and was oriented. We initially decided to abort and trial the patient on BIPAP. However subsequent ABGs despite adjustments on the BIPAP showe worsening hypercapnia andacidosis, with the latest 7.14/86 and patient appeared more labored and difficult to arouse. We proceeded with difficult airway intubation. A glidescope3 was used. The vocal cord entry was very narrow. Only a 6.5F ETT could fit. I reviewed his cervical neck CTs from 10/12 and it was already clear he had a very narrow subglottic passage. Even the neck CT on Jul 16 showed it was already narrowed. He has never been evaluated by ENT. Reportedly also drinks heavily butthis was not verified. Review of Systems Review of Systems Review of systems: see [facility] Medical History (Updated 11/04/24 @ 19:41 by Brodie Nascimento MD) Cervical myelopathy Anxiety Head injury from fall Smoker JULI on CPAP Acute confusion Primary osteoarthritis of right hip Primary osteoarthritis of left hip Poor balance Lymphadenitis Sleep apnea Hypertension Depression CVA (cerebral vascular accident) Left hip pain Surgical History History of right inguinal hernia repair History of carpal tunnel release bilateral 2020 Hx of total knee arthroplasty right knee, Dr. Day 02/04/24 Family History Father Prostate cancer Mother History of TB (tuberculosis) Social History Smoking Status: Current every day smoker Tobacco Type: cigarettes Substance Use Type: None Meds Medications and Allergies Allergies No Known Allergies Allergy (Verified 11/04/24 06:07) Home Medications alprazolam 0.25 mg tablet (Xanax) 0.125 mg PO DAILY 09/07/24 [History Confirmed 11/04/24] buspirone 5 mg tablet 5 mg PO DIRECTED 09/07/24 [History Confirmed 11/04/24] carvedilol 25 mg tablet 25 mg PO BID.WITH.MEALS 30 days #60 tabs 10/01/24 [Rx Confirmed 11/04/24] furosemide 20 mg tablet (Lasix) 20 mg PO QAM 10/21/24 [History Confirmed 11/04/24] losartan 50 mg tablet 50 mg PO QAM 10/21/24 [History Confirmed 11/04/24] sodium chloride 1,000 mg soluble tablet 1,000 mg PO BID 10/21/24 [History Confirmed 10/21/24] tamsulosin 0.4 mg capsule 0.4 mg PO QAM 10/21/24 [History Confirmed 11/04/24] venlafaxine 75 mg tablet 75 mg PO TID 11/04/24 [History Confirmed 11/04/24] Exam Physical Exam Vital Signs: Temp Pulse Resp BP Pulse Ox O2 Del Method O2 Flow Rate 100.0 F H 63 16 144/82 H 96 BiPAP 6 11/04/24 11:00 11/04/24 18:12 11/04/24 18:12 11/04/24 12:40 11/04/24 16:31 11/04/24 16:00 11/04/24 11:00 FiO2 100 11/04/24 18:12 Const Other: Gen: Chronically ill appearing in respiratory distress HENT: EOMI PERRL Neck: +stridor CVS: RRR -m/r/g Lungs: diminished bilaterally Abd: soft non tender Ext: no LE edema good cap refill Neuro: difficult to arouse Results - Pulmonology Intake and Output I&O - Last 24 Hours: Intake & Output 11/04/24 11/04/24 11/04/24 07:59 15:59 23:59 Intake Total 50 / 1750 1700 / 1750 Balance 50 / 1750 1700 / 1750 Weight 85.7 kg Assessment/Plan (1) Stridor: (2) Acute respiratory failure with hypoxia and hypercapnia: (3) Difficult airway for intubation: (4) JULI on CPAP: (5) Cervical myelopathy: Plan 74 yo M with severe stridor, likely acute on chronic, worse after his cervical neck surgery, with post op increased work of breathing and worsening acute respiratory acidosis, not rescued with racemic epi, decadron, and BIPAP, thus re-intubated with a 6.5F ETT. - per anesthesia report they were able to intubate with a 7.5F ETT however I could not get a 7.0 in and had to downsize to a 6.5 - once stable will get a dedicated neck CT with contrast (will see if renal function is stable in the morning) - will need ENT to see - will continue IV Decadron 6mg q6h for now - propofol/fentanyl for sedation, GI and DVT prophylaxis - on post op antibiotics Critical Care Time: 65 Documented By: Brodie Nascimento MD 1919 Signed By: <Electronically signed by Brodie Nascimento MD> 11/04/241944 [facility] Work Phone: [phone] 237-884604-17-2025 [place] [address] Pulmonology Procedure Note Signed Patient: Michael Vaughn MR#: [id number] : 1950 Acct:[id number] Age/Sex: 74 / M Adm Date: 5 Loc: Room: [address] [place] [address] Type: ADM IN Attending Dr: Reyes Bridges DO Copies to: DO Rolan Arias NP-C Yuhann Kenneth L Lopez, MD~ Pulmonary Procedures INDICATION: stridor, respiratory distress OVERLOCK COLLAR SETTER: Brodie Nascimento MD INTUBATION SEDATION: etomidate MG GIVEN: 20 PARALYTIC: succinylcholine MG GIVEN: 150 PREOXYGENATED: other LARYNGOSCOPE: Glidescope GRADE OF CORDS: 2b ET TUBE SIZE: 6.5 TUBE SECURED DEPTH: 23 TUBE SECURED LOCATION: lips TUBE PLACEMENT CONFIRMATION: visualized tube passing through cords, equal breathsounds bilaterally and confirmation by capnometry PATIENT TOLERATED PROCEDURE: well INTUBATION COMPLICATIONS: none Documented By: Brodie Nascimento MD 1948 Signed By: 11/04/241950 [facility]04-17-2025 [place] [address] Pulmonology Consult Note Signed Patient: Michael Vaughn MR#: [id number] : 1950 Acct:[id number] Age/Sex: 74 / M Adm Date: 5 Loc: Room: [address] [place] [address] Type: ADM IN Attending Dr: Reyes Bridges DO Copies to: DO Rolan Arias, [place] Nascimento MD~ HPI Date/Time of Consultation: Date of Service: 11/04/2024 Time of Service: 19:20 Consulting Provider: Brodie Nascimento Requesting Provider: Reyes Bridges History of Present Illness History of present illness: Mr. Vaughn is a 74 year old male who presented today for elective cervical spine surgery. Post op they noted stridor and was transferred to the ICU. He appears to have a more complex history. His wifeclaims he has been having stridor for awhile and has also been having falls, occasionally would fall asleep even whilesitting at the dinner table. He was recently started on CPAP for JULI. When I wasconsulted to assess the patient in the ICU, his stridor was almost high pitched,and he was retracting. He had a cervical collar on. There was minimal air movement on chest auscultation. He initially was hard to arouse. He attempted nebulized Racemic Epinephrine, gave a dose of Dexamethasone 8mg IV. AB g showed acute respiratory acidosis with ph of 7.23 and PCO[address] of 61. Dr. Bridges and Dr. Hurtado came to the bedside and we all re-assessed the patient. We decided to proceed with re-intubation however he woke up and started talking and was oriented. We initially decided to abort and trial the patient on BIPAP. However subsequent ABGs despite adjustments on the BIPAP showe worsening hypercapnia andacidosis, with the latest 7 and patient appeared more labored and difficult to arouse. We proceeded with difficult airway intubation. A glidescope3 was used. The vocal cord entry was very narrow. Only a 6.5F ETT could fit. I reviewed his cervical neck CTs from 10/12 and it was already clear hehad a very narrow subglottic passage. Even the neck CT on Jul 16 showed it was already narrowed. Hehas never been evaluated by ENT. Reportedly also drinks heavily butthis was not verified. Review of Systems Review of Systems Review of systems: see [facility] Medical History (Updated 11/04/24 @ 19:41 by Brodie Nascimento MD) Cervical myelopathy Anxiety Head injury from fall Smoker JULI on CPAP Acute confusion Primary osteoarthritis of right hip Primary osteoarthritis of left hip Poor balance Lymphadenitis Sleep apnea Hypertension Depression CVA (cerebral vascular accident) Left hip pain Surgical History History of right inguinal hernia repair History of carpal tunnel release bilateral 2020 Hx of total knee arthroplasty right knee, Dr. Day 02/04/24 Family History Father Prostate cancer Mother History of TB (tuberculosis) Social History Smoking Status: Current every day smoker Tobacco Type: cigarettes Substance Use Type: None Meds Medications and Allergies Allergies No Known Allergies Allergy (Verified 11/04/24 06:07) Home Medications alprazolam 0.25 mg tablet (Xanax) 0.125 mg PO DAILY 09/07/24 [History Confirmed 11/04/24] buspirone 5 mg tablet 5 mg PO DIRECTED 09/07/24 [History Confirmed 11/04/24] carvedilol 25 mg tablet 25 mg PO BID.WITH.MEALS 30 days #60 tabs 10/01/24 [Rx Confirmed 11/04/24] furosemide 20 mg tablet (Lasix) 20 mg PO QAM 10/21/24 [History Confirmed 11/04/24] losartan 50 mg tablet 50 mg PO QAM 10/21/24 [History Confirmed 11/04/24] sodium chloride 1,000 mg soluble tablet 1,000 mg PO BID 10/21/24 [History Confirmed 10/21/24] tamsulosin 0.4 mg capsule 0.4 mg PO QAM 10/21/24 [History Confirmed 11/04/24] venlafaxine 75 mg tablet 75 mg PO TID 11/04/24 [History Confirmed 11/04/24] Exam Physical Exam Vital Signs: Temp Pulse Resp BP Pulse Ox O2 Del Method O2 Flow Rate 100.0 F H 63 16 144/82 H 96 BiPAP 6 11/04/24 11:00 11/04/24 18:12 11/04/24 18:12 11/04/24 12:40 11/04/24 16:31 11/04/24 16:00 11/04/24 11:00 FiO2 100 11/04/24 18:12 Const Other: Gen: Chronically ill appearing in respiratory distress HENT: EOMI PERRL Neck: +stridor CVS: RRR -m/r/g Lungs: diminished bilaterally Abd: soft non tender Ext: no LE edema good cap refill Neuro: difficult to arouse Results - Pulmonology Intake and Output I&O - Last 24 Hours: Intake & Output 11/04/24 11/04/24 11/04/24 07:59 15:59 23:59 Intake Total 50 / 1750 1700 / 1750 Balance 50 / 1750 1700 / 1750 Weight 85.7 kg Assessment/Plan (1) Stridor: (2) Acute respiratory failure with hypoxia and hypercapnia: (3) Difficult airway for intubation: (4) JULI on CPAP: (5) Cervical myelopathy: Plan 74 yo M with severe stridor, likely acute on chronic, worse after his cervical neck surgery, with post op increased work of breathing and worsening acute respiratory acidosis, not rescued with racemic epi, decadron, and BIPAP, thus re-intubated with a 6.5F ETT. - per anesthesia report they were able to intubate with a 7.5F ETT however I could not get a 7.0 inand had to downsize to a 6.5 - once stable will get a dedicated neck CT with contrast (will see if renal function is stable in the morning) - will need ENT to see - will continue IV Decadron 6mg q6h for now - propofol/fentanyl for sedation, GI and DVT prophylaxis - on post op antibiotics Critical Care Time: 65 Documented By: Brodie Nascimento MD 1919 Signed By: 11/04/241944 [facility]04-10-2025 History of Present illness Narrative * Rolan Monaco NP - 10/28/2024 4:30 PM EDT Images from the original note were not included. Subjective : Chief Complaint: Michael Vaughn is an 74 y.o. male here for an annual wellness visit. I have reviewed and reconciled the history and medication list with the patient today. Current Outpatient Medications Medication Sig Dispense Refill Blood Pressure kit 1 Units in the morning and 1 Units in the evening and 1 Units before bedtime. 1 kit 0 busPIRone (Buspar) 5 MG tablet TAKE TWO TABLETS BY MOUTH EVERY MORNING, TAKE ONE TABLET BY MOUTH EVERY AFTERNOON, AND TAKE ONE TABLET BY MOUTH EVERY EVENING 450 tablet 3 carvedilol (Coreg) 12.5 MG tablet Take 2 tablets (25 mg) by mouth in the morning and 2 tablets (25 mg) before bedtime. 200 tablet 3 furosemide (Lasix) 20 MG tablet Take 20 mg by mouth in the morning and 20 mg before bedtime. HYDROcodone-acetaminophen (Nashua) 5-325 MG tablet losartan (Cozaar) 25 MG tablet Take 50 mg by mouth Daily sodium chloride 1 g tablet Take 1 tablet (1 g) by mouth in the morning and 1 tablet (1 g) at noon and 1 tablet (1 g) in the evening and 1 tablet (1 g) before bedtime. 120 tablet 11 tamsulosin (Flomax) 0.4 MG 24 hr capsule Take 1 capsule (0.4 mg) by mouth Daily 90 capsule 1 tiZANidine (Zanaflex) 4 MG tablet Take 1 tablet (4 mg) by mouth every 6 (six) hours if needed for muscle spasms 30 tablet 2 venlafaxine (Effexor) 75 MG tablet TAKE 1 TABLET BY MOUTH EVERY MORNING , EVERY EVENING , AND BEFORE BEDTIME 300 tablet 0 No current facility-administered medications for this visit. Review of Systems List of current healthcare providers: Patient Care Team: Zayra Aquino MD as PCP - General (Family Medicine) Rolan Monaco NP as PCP - ACO Bishop Tristan LPN Medicare Annual Visit Over the past 2 weeks, how often have you been bothered by any of the following problems? Little interest or pleasure in doing things: Not at all Feeling down, depressed, or hopeless: Not at all Patient Health Questionnaire-2 Score: 0 Givens Fall Risk History of Falling, Immediate or Within 3 Months: Yes Health Risk Assessment Form Do you need help eating, bathing, using the toilet, dressing, or getting around your home?: No Can you prepare your own meals?: Yes Can you do your own housework without help?: Yes Can you shop for groceries or clothes without help?: Yes Do you exercise for about 20 minutes 3 or more days a week?: Yes How confident are you that you can control and manage most of your health problems?: Very confident Can you mange your money, credit cards and accounts, pay bills and taxes?: Yes Cognitive Screening Three Word Registration: Banana, [place], Chair Clock Drawing: Normal Clock - 2 Three Word Recall: All 3 words correct - 3 Total Score (0-5 Points): 5 Pain Assessment Pain Score: 1 Advance Care Planning Do you have a living will?: Yes Do you have a medical power of crusher screen repairer?: Yes Objective : BP 162/84 Pulse 57 Resp 16 Ht 5' 7 Wt 191 lb 9.6 oz SpO2 97% BMI 30.01 kg/m No results found. Physical Exam Vitals reviewed. Constitutional: Appearance: Normal appearance. HENT: Head: Normocephalic. Right Ear: Tympanic membrane normal. Left Ear: Tympanic membrane normal. Nose: Nose normal. Mouth/Throat: Mouth: Mucous membranes are moist. Pharynx: Oropharynx is clear. Eyes: Conjunctiva/sclera: Conjunctivae normal. Pupils: Pupils are equal, round, and reactive to light. Cardiovascular: Rate and Rhythm: Normal rate and regular rhythm. Pulmonary: Effort: Pulmonary effort is normal. Abdominal: General: Bowel sounds are normal. Palpations: Abdomen is soft. Musculoskeletal: General: Normal range of motion. Skin: General: Skin is warm and dry. Neurological: General: No focal deficit present. Mental Status: He is alert and oriented to person, place, and time. Psychiatric: Mood and Affect: Mood normal. Behavior: Behavior normal. Thought Content: Thought content normal. Judgment: Judgment normal. Assessment/Plan : The following health maintenance schedule was reviewed with the patient and provided in printed form in the after visit summary: Health Maintenance Topic Date Due Pneumococcal Vaccine: 65+ Years (2 of 2 - PCV) 07/30/2018 Influenza Vaccine (Season Ended) 2025 Medicare Annual Wellness (AWV) 10/28/2025 Colorectal Cancer Screening 11/03/2026 Advance Care Planning Living will and DPOA in place Orders Placed This Encounter Procedures CBC Standing Status: Future Number of Occurrences: 1 Standing Expiration Date: 10/28/2025 Order Specific Question: Print requisition? Answer: No Comprehensive metabolic panel Standing Status: Future Number of Occurrences: 1 Standing Expiration Date: 10/28/2025 Order Specific Question: Print requisition? Answer: No 1. Bilateral carpal tunnel syndrome (Primary) This has been repaired 2. Paresthesia of skin This is a chronic medical condition that is stable since last assessment. No changes in treatment are suggested at this time. 3. Sleep apnea in adult This is a chronic medical condition that is stable since last assessment. No changes in treatment are suggested at this time. 4. Primary hypertension (CMS/HCC) Patient's blood pressure is currently well controlled. Except it was elevated on this visit. Continue with current medications and I will continue to monitor. Goal BP remains less than 130/80. - CBC; Future - Comprehensive metabolic panel; Future - CBC - Comprehensive metabolic panel 5. Benign prostatic hyperplasia with urinary frequency This is a chronic medical condition that is stable since last assessment. No changes in treatment are suggested at this time. 6. Acquired spondylolisthesis This is a chronic medical condition that is stable since last assessment. No changes in treatment are suggested at this time. 7. Primary osteoarthritis of right knee This is a chronic medical condition that is stable since last assessment. No changes in treatment are suggested at this time. 8. Morbid obesity (CMS/HCC) Discussed goal of BMI < 30. Advised on weight loss options. Encouraged diet and exercise. Discussed with patient appropriate lifestyle modification changes necessary for weight management, heart healthy eating and overall health promotion. Discussed minimizing high carb, high sugar, high sodium,portion control, and processed foods while making healthy choice replacements. Additionally discussed recommendations of 30 minutes of aerobic exercise at least 5 days per week, that includes, walking, and chair exercises. . Instructed importance of drinking adequate water consumption (if not on fluid restriction) with minimal sugar and caffiene. 9. Adjustment disorder with anxiety (CMS/HCC) Take medication as directed. Verbalizes understanding of the need to be seen in the ER for excessive stress, elevated blood pressure or palpitations. Advised on relaxation methods to decrease anxietyand depression. Pt offers understanding of treatment plan. 10. Adjustment disorder with depressed mood (CMS/HCC) Medication as directed. Verbalizes understanding of the need to be seen in the ER for suicidal/homicidal ideation, excessive stress, elevated blood pressure or palpitations. Pt offers understanding of treatment plan. I discussed the side effects of the medications described and to seek medical careif they arise. Discussed stress mgmt strategies, social support and importance of healthy diet, exercise and regular sleep habits. Advised on relaxation methods to decrease anxiety and depression. 11. Alcohol abuse Pt is down to drinking 1 can a night. 12. Hypertriglyceridemia (CMS/HCC) Await lab 13. Routine general medical examination at health care facility Reviewed all relevant preventative screenings with the patient in detail. Medicare Wellness form completed and will be scanned into patient's chart. All needed testing was ordered. Will continue withyearly Medicare Wellness exams. Electronically signed by Rolan Monaco NP on October 28, 2024 documented in [address] encounterMercy Hospital St. [id number] History of Present illness Narrative* Rolan Monaco NP - 10/21/2024 4:30 PM EDT Images from the original note were not included. Subjective Patient ID: Michael Vaughn is a 74 y.o. male who presents for No chief complaint on file.. Michael presents today for test results from a sleep study that was done in September. Current Outpatient Medications on File Prior to Visit Medication Sig Dispense Refill Blood Pressure kit 1 Units in the morning and 1 Units in the evening and 1 Units before bedtime. 1 kit 0 busPIRone (Buspar) 5 MG tablet TAKE TWO TABLETS BY MOUTH EVERY MORNING, TAKE ONE TABLET BY MOUTH EVERY AFTERNOON, AND TAKE ONE TABLET BY MOUTH EVERY EVENING 450 tablet 3 carvedilol (Coreg) 12.5 MG tablet Take 1 tablet (12.5 mg) by mouth in the morning and 1 tablet (12.5 mg) before bedtime. 200 tablet 3 furosemide (Lasix) 20 MG tablet Take 20 mg by mouth in the morning and 20 mg before bedtime. HYDROcodone-acetaminophen (Nashua) 5-325 MG tablet losartan (Cozaar) 25 MG tablet Take 25 mg by mouth Daily sodium chloride 1 g tablet Take 1 tablet (1 g) by mouth in the morning and 1 tablet (1 g) at noon and 1 tablet (1 g) in the evening and 1 tablet (1 g) before bedtime. 120 tablet 11 tamsulosin (Flomax) 0.4 MG 24 hr capsule Take 1 capsule (0.4 mg) by mouth Daily 90 capsule 1 tiZANidine (Zanaflex) 4 MG tablet Take 1 tablet (4 mg) by mouth every 6 (six) hours if needed for muscle spasms 30 tablet 2 venlafaxine (Effexor) 75 MG tablet TAKE 1 TABLET BY MOUTH EVERY MORNING , EVERY EVENING , AND BEFORE BEDTIME 300 tablet 0 No current facility-administered medications on file prior to visit. I have reviewed and reconciled the history and medication list with the patient today. No Known Allergies Social History Tobacco Use Smoking status: Former Current packs/day: 0.00 Types: Cigarettes Quit date: 2003 Years since quittin.2 Smokeless tobacco: Never Vaping Use Vaping status: [...] Procedure Laterality Date CARPAL TUNNEL RELEASE Bilateral 2020 HERNIA REPAIR KNEE SURGERY 2001 dr day TOTAL KNEE ARTHROPLASTY Right 02/04/2024 Dr Day Visit Vitals Smoking Status Former Review of Systems Constitutional: Negative. HENT: Negative. Eyes: Negative. Respiratory: Negative. Cardiovascular: Negative. Gastrointestinal: Negative. Genitourinary: Negative. Musculoskeletal: Negative. Skin: Negative. Neurological: Negative. Psychiatric/Behavioral: Negative. All other systems reviewed and are negative. Objective Physical Exam Vitals reviewed. Constitutional: Appearance: Normal appearance. HENT: Head: Normocephalic. Nose: Nose normal. Mouth/Throat: Mouth: Mucous membranes are moist. Pharynx: Oropharynx is clear. Eyes: Conjunctiva/sclera: Conjunctivae normal. Cardiovascular: Rate and Rhythm: Normal rate and regular rhythm. Pulmonary: Effort: Pulmonary effort is normal. Breath sounds: Normal breath sounds. Abdominal: General: Bowel sounds are normal. Palpations: Abdomen is soft. Skin: General: Skin is warm and dry. Neurological: General: No focal deficit present. Mental Status: He is alert and oriented to person, place, and time. Psychiatric: Mood and Affect: Mood normal. Behavior: Behavior normal. Thought Content: Thought content normal. Judgment: Judgment normal. Assessment/Plan Diagnoses and all orders for this visit: Hypertriglyceridemia (CMS/HCC) - carvedilol (Coreg) 12.5 MG tablet; Take 2 tablets (25 mg) by mouth in the morning and 2 tablets (25 mg) before bedtime. This is a chronic medical condition that is stable since last assessment. No changes in treatment are suggested at this time. JULI Patient is compliant with CPAP usage and perceives benefit from treatment. Treatment has been effective in controlling the patient's symptoms of Sleep Apnea. Will continue to monitor with routine follow up appointments. No follow-ups on file. documented in this encounterMercy Hospital St. [id number] Radiology Diagnostic study [facility] [place] [address] [place] [address] CT Scan Report Signed Patient: Michael Vaughn MR#: [id number] : 1950 Acct:[id number] Age/Sex: 74 / M ADM Date: 5 Loc: [facility] Room: Type: [facility] Attending Dr: Florence Beltran APRN Copies to: Florence Beltran APRN~ Ordering Provider: Florence Beltran APRN Date of Service: 10/12/24 CT/CT cervical spine wo con: G95.9 - Disease of spinal cord, unspecified CT CERVICAL SPINE WITHOUT CONTRAST WITH 3D RECONSTRUCTIONS: CLINICAL HISTORY: History of cervical myelopathy. Arm weakness. Prior CT C-spine fusion surgery. COMPARISON: Outside CT cervical spine 07/16/2024 TECHNIQUE: Spiral axial unenhanced images were obtained through the cervical spine. Sagittal, coronal and 3D volume-rendered reconstructions were also reviewed. This CT exam was performed using one or more following dose reductiontechniques: Automated exposure control, adjustment of the mA and/or kV accordingto patient size, or use of iterative reconstruction technique. FINDINGS: Vertebral body heights appear maintained. No fracture is noted. Scattered endplate, uncovertebral and facet joint degenerative changes with moderate spondylosis C5-C7. No prevertebral soft tissue swelling is seen. Visualized lung apices are clear. CT/CT cervical spine wo con IMPRESSION: NO ACUTE FRACTURE. DEGENERATIVE CHANGES INVOLVING THE CERVICAL SPINE WORST AT C5-C7 SIMILAR TO THE PRIOR STUDY. Impression dictated by: Sea Stevenson Jr., D.OTammie10/12/2024 5:57 PM Dictation Location: [facility]--18 Transcribed By: CATHERINE 10/12/241756 Dictated By: Sea Stevenson Jr, DO 10/12/241753 Signed By: 10/12/241756 [facility]03-13-2025 History and physical note Author Baron Ruggiero [facility] Note Date/Time September 30, 2024 4:1 3pm [facility] [address] [place] [address] Hospitalist H&P Signed Patient: Michael Vaughn MR#: [id number] : 1950 Acct:[id number] Age/Sex: 74 / M Adm Date: 5 Loc: 3T Room: [address] [place] [address] Type: ADM INOo Attending Dr: Baron Ruggiero DO Copies to: DO Rolan Brown NP-C~ HPI DATE OF EXAMINATION: 09/30/24 CHIEF COMPLAINT: shaking HISTORY OF PRESENT ILLNESS: Mr Vaughn is a 74-year-old male with a past medical history of cervical spine stenosis, previous CVA, hypertension, severe sleep apnea presents hospital todaywith chief complaint of some shaking at home. Patient tells me that he has severe sleep apnea almost as he was laying to the room, he wakes up every 2-3 hours at night. He does have a sleep study performed recently that shows she has Versed apnea though he has not received his CPAP machine yet. He states thatlast night he woke up like he typically does, was walking with his walker to [facility] and he got stuck in the doorway of his bathroom and he got very nervousand shouted for his who did not wake up and hear him. He was stuck there for a bit and was able to get back to his bed, approximately 2 hours later he woke up and did the same thing, his still did not hear him. A little bit later he did wake up again when the came to check on him and she states that he was shaking in his bilateral upper extremities, he was coherent and talking during this. He did call his neurosurgeon who is currently evaluating him for possible cervical spine surgery and he was told to come emergency room for evaluation. Upon arrival emergency room, his blood pressure was also above 220 this morning. This is very unusual for him he states. Review of Systems Review of Systems All other systems reviewed & are negative unless noted below or in HPI [facility] Medical History Primary osteoarthritis of right hip Primary osteoarthritis of left hip Poor balance Lymphadenitis CVA (cerebral vascular accident) Depression Hypertension Sleep apnea Left hip pain Surgical History Hx of total knee arthroplasty Dr. Day 02/04/24 History of carpal tunnel release bilateral 2020 Family History (Updated 09/30/24 @ 12:39 by Malathi Gibbons RN) Father Prostate cancer Social History Smoking Status: Current every day smoker Tobacco Type: cigarettes Substance Use Type: None Meds Medications and Allergies Allergies No Known Allergies Allergy (Verified 09/30/24 09:12) Home Medications tamsulosin 0.4 mg capsule (Flomax) 0.4 mg PO DAILY 08/10/24 [History Confirmed 09/30/24] alprazolam 0.25 mg tablet (Xanax) 0.125 mg PO DAILY 09/07/24 [History Confirmed 09/30/24] buspirone 5 mg tablet 5 mg PO DIRECTED 09/07/24 [History Confirmed 09/30/24] carvedilol 12.5 mg tablet (Coreg) 12.5 mg PO BID 09/07/24 [History Confirmed 09/30/24] furosemide 20 mg tablet (Lasix) 20 mg PO BID #60 tabs 09/07/24 [Rx Confirmed 09/30/24] losartan 25 mg tablet 25 mg PO DAILY #90 tabs 09/07/24 [Rx Confirmed 09/30/24] venlafaxine 75 mg capsule,extended release 24 hr (Effexor XR) 75 mg PO TID 09/07/24 [History Confirmed 09/30/24] lisinopril 5 mg tablet 5 mg PO DAILY 09/30/24 [History Confirmed 09/30/24] Exam Physical Exam Vital Signs: Temp Pulse Resp BP Pulse Ox O2 Del Method 97.7 F 66 19 162/74 H 100 Room Air 09/30/24 14:00 09/30/24 14:00 09/30/24 14:00 09/30/24 14:00 09/30/24 14:00 09/30/24 14:00 Narrative: General: Awake alert, no acute distress HEENT: head atraumatic, normocephalic, moist mucous membranes, no tongue trauma noted, poor dentition Neck: supple no masses, no lymphadenopathy CVS: regular rate and rhythm, no murmurs or gallops Respiratory: clear to auscultation bilaterally, some expiratory wheezes noted throughout GI: soft, nondistended, nontender, positive bowel sounds with no organomegaly Extremity: moves all extremities, no restrictions of movements, no calf tenderness, no edema Neuro: AOx3, CN II-VII intact. Moves all extremities in all planes of motion. Skin: dry, intact no rashes or lesions Results - Hospitalist H&P Lab Results Labs: Laboratory Last Values Corrected WBC 6.5 X10E3/uL (4.1-10.5) 09/30/24 09:16 Uncorrected WBC Count 6.5 x10E3/uL (4.1-10.5) 09/30/24 09:16 RBC 3.89 x10E6/uL (3.90-5.60) L 09/30/24 09:16 Hgb 13.7 g/dL (13.0-17.0) 09/30/24 09:16 POC Hgb 15.0 g/dl (12.0-17.0) 09/30/24 09:18 Hct 39.7 % (38.8-50.0) 09/30/24 09:16 POC Hct 44.0 % (38.0-51.0) 09/30/24 09:18 MCV 102.0 fl (83.5-101) H 09/30/24 09:16 MCH 35.3 pg (27.5-35.2) H 09/30/24 09:16 MCHC 34.6 g/dL (32.5-35.6) 09/30/24 09:16 RDW 15.2 % (12.0-14.8) H 09/30/24 09:16 Plt Count 221 x10E3/uL (150-450) 09/30/24 09:16 MPV 7.0 fl (6.6-10.1) 09/30/24 09:16 Neut % (Auto) 53.8 % (.) 09/30/24 09:16 Lymph % (Auto) 27.0 % (.) 09/30/24 09:16 [place] % (Auto) 16.6 % (.) 09/30/24 09:16 Eos % (Auto) 1.7 % (.) 09/30/24 09:16 Baso % (Auto) 0.9 % (.) 09/30/24 09:16 Nucleat RBC Rel Count 0.1 /100 WBC (0-0.5) 09/30/24 09:16 Neut # (Auto) 3.5 x10E3/uL (1.8-7.7) 09/30/24 09:16 Lymph # (Auto) 1.7 x10E3/uL (1.00-4.8) 09/30/24 09:16 [place] # (Auto) 1.1 x10E3/uL (0.0-0.8) H 09/30/24 09:16 Eos # (Auto) 0.1 x10E3/uL (0.0-0.45) 09/30/24 09:16 Baso # (Auto) 0.1 x10E3/uL (0.0-0.2) 09/30/24 09:16 Monocyte Dist Width 17.57 % (0.00-20.00) 09/30/24 09:16 PT 10.9 Seconds (9.0-12.9) 09/30/24 09:16 INR 1.0 09/30/24 09:16 APTT 30.3 Seconds (25.1-36.5) 09/30/24 09:16 PHA Creatinine Clear 88.38 09/30/24 09:17 POC Sodium 138 mmol/L (138-146) 09/30/24 09:18 Sodium 136 mmol/L (136-145) 09/30/24 09:17 POC Potassium 3.6 mmol/L (3.5-4.9) 09/30/24 09:18 Potassium 3.7 mmol/L (3.5-5.1) 09/30/24 09:17 POC Chloride 98.0 mmol/L (98-109) 09/30/24 09:18 Chloride 101 mmol/L (98-107) 09/30/24 09:17 Carbon Dioxide 28.7 mmol/L (21.0-31.0) 09/30/24 09:17 POC Total CO2 28 mmol/L (23-29) 09/30/24 09:18 Anion Gap 10.0 mEq/L (6.0-15.0) 09/30/24 09:17 POC BUN 16 mg/dl (8-26) 09/30/24 09:18 BUN 15 mg/dL (7-25) 09/30/24 09:17 Creatinine 0.72 mg/dL (0.70-1.30) 09/30/24 09:17 POC Creatinine 0.9 mg/dl (0.6-1.3) 09/30/24 09:18 Est GFR (CKD-EPI) > 60.0 mL/Min 09/30/24 09:17 Glucose 75 mg/dL (70-100) 09/30/24 09:17 POC Whole Bld Glucose 75 mg/dl (70-105) 09/30/24 09:18 Calcium 8.6 mg/dL (8.6-10.3) 09/30/24 09:17 POC Ioniz Calcium Reginaldo 1.16 mol/L (1.12-1.32) 09/30/24 09:18 Total Bilirubin 0.5 mg/dl (0.3-1.0) 09/30/24 09:17 AST 25 U/L (13-39) 09/30/24 09:17 ALT 13 U/L (7-52) 09/30/24 09:17 Alkaline Phosphatase 62 U/L (34-104) 09/30/24 09:17 Total Creatine Kinase 115 U/L (30-223) 09/30/24 09:17 Troponin I High Sens 18 ng/L (0-20) 09/30/24 09:17 Total Protein 7.1 gm/dL (6.4-8.9) 09/30/24 09:17 Albumin 4.3 gm/dL (3.5-5.7) 09/30/24 09:17 Globulin 2.8 gm/dL 09/30/24 09:17 Albumin/Globulin Ratio 1.5 09/30/24 09:17 Urine Color Colorless (Yellow) 09/30/24 10:12 Urine Appearance Clear (Clear) 09/30/24 10:12 Urine pH 7.0 (5.0-9.0) 09/30/24 10:12 Ur Specific [place] 1.012 (1.001-1.030) 09/30/24 10:12 Urine Protein Negative mg/dL (Negative) 09/30/24 10:12 Urine Glucose (UA) Normal mg/dL (Normal) 09/30/24 10:12 Urine Ketones Negative (Negative) 09/30/24 10:12 Urine Occult Blood Negative (Negative) 09/30/24 10:12 Urine Nitrite Negative (Negative) 09/30/24 10:12 Urine Bilirubin Negative (Negative) 09/30/24 10:12 Urine Urobilinogen Normal mg/dL (Normal) 09/30/24 10:12 Ur Leukocyte Esterase Negative (Negative) 09/30/24 10:12 Assessment & Plan Assessment/Plan (1) Sleep apnea: Plan: ? Admit under observation, telemetry ? If a sleep apnea exacerbation was a diagnosis I believe this would be the diagnosis for admission ? Will order CPAP machine to use tonight, patient has not had his home machine sent to him yet he is still waiting. ? I do not believe there is any evidence of seizures or CVA at this point in time, will hold off on MRI of the brain though I will check A1c and lipid panel since he is here in the hospital for risk stratification. (2) Smoker: Plan: ? She does admit to being a daily smoker, on my evaluation he is coughing up a lot of phlegm and says this is a little worse than his baseline. Will order respiratory panel to rule out any viral causes for COPD exacerbation though he does not have a formal diagnosis of COPD. He would likely benefit from low-doselung CT in the outpatient setting. Would also benefit from abdominal ultrasoundfor AAA screening. (3) Cervical myelopathy: Plan: Being worked up by neurosurgery, unrelated to diagnosis of admission (4) Primary hypertension: Plan: Continue home medications his regular blood pressure on chart review appears to be around 165 systolic. He has carvedilol 12.5 mg twice daily on his home medications, unfortunately he has both lisinopril and losartan on his home medications believes he has taken them both. Will discontinue lisinopril in favor of losartan. Unfortunately there is no fill history for other on these medications. Will plan to uptitrate his carvedilol. Plan ? DVT prophylaxis addressed ? Regular diet ? Full code IP vs OBS Justification Based on differential dx, clinical care plan, and risk of adverse events, if untreated, in my clinical judgement this patient requires an acute care setting as: OBSERVATION because of an expectation of an under 2 midnight stay. Estimated length of stay (# of days): 1 Documented By: Baron Ruggiero DO 09/30/24 1600 Signed By: <Electronically signed by Baron Ruggiero DO> 09/30/[address] [place] [address] Work Phone: [phone] [place] [address] Hospitalist H&P Signed Patient: Michael Vaughn MR#: [id number] : 1950 Acct:[id number] Age/Sex: 74 / M Adm Date: 5 Loc: 3T Room: [address] [place] [address] Type: ADM INOo Attending Dr: Baron Ruggiero DO Copies to: DO Rolan Brown, BRADEN-C~ HPI DATE OF EXAMINATION: 09/30/24 CHIEF COMPLAINT: shaking HISTORY OF PRESENT ILLNESS: Mr Vaughn is a 74-year-old male with a past medical history of cervical spine stenosis, previous CVA, hypertension, severe sleep apnea presents hospital todaywith chief complaint of some shaking at home. Patient tells me that he has severe sleep apnea almost as he was laying to the room, he wakes upevery 2-3 hours at night. He does have a sleep study performed recently that shows she has Versed apnea though he has not received his CPAP machine yet. He states thatlast night he woke up like he typically does, was walking with [facility] walk[facility] and he got stuck in the doorway of his bathroom and he got very nervousand shouted for his who did not wake up and hear him. He was stuck t here for a bit and was able to get back to his bed, approximately 2 hours later he woke up and did the same thing, his still did not hear him. A little bit later he did wake up again when the came to check on him and she states that he was shaking in his bilateral upper extremities, he was coherent and talking during this. He did call his neurosurgeon who is currently evaluating him forpossible cervical spine surgery and he was told to come emergency room for evaluation. Upon arrivalemergency room, his blood pressure was also above 220 this morning. This is very unusual for him hestates. Review of Systems Review of Systems All other systems reviewed & are negative unless noted below or in HPI [facility] Medical History Primary osteoarthritis of right hip Primary osteoarthritis of left hip Poor balance Lymphadenitis CVA (cerebral vascular accident) Depression Hypertension Sleep apnea Left hip pain Surgical History Hx of total knee arthroplasty Dr. Day 02/04/24 History of carpal tunnel release bilateral 2020 Family History (Updated 09/30/24 @ 12:39 by Malathi Gibbons RN) Father Prostate cancer Social History Smoking Status: Current every day smoker Tobacco Type: cigarettes Substance Use Type: None Meds Medications and Allergies Allergies No Known Allergies Allergy (Verified 09/30/24 09:12) Home Medications tamsulosin 0.4 mg capsule (Flomax) 0.4 mg PO DAILY 08/10/24 [History Confirmed 09/30/24] alprazolam 0.25 mg tablet (Xanax) 0.125 mg PO DAILY 09/07/24 [History Confirmed 09/30/24] buspirone 5 mg tablet 5 mg PO DIRECTED 09/07/24 [History Confirmed 09/30/24] carvedilol 12.5 mg tablet (Coreg) 12.5 mg PO BID 09/07/24 [History Confirmed 09/30/24] furosemide 20 mg tablet (Lasix) 20 mg PO BID #60 tabs 09/07/24 [Rx Confirmed 09/30/24] losartan 25 mg tablet 25 mg PO DAILY #90 tabs 09/07/24 [Rx Confirmed 09/30/24] venlafaxine 75 mg capsule,extended release 24 hr (Effexor XR) 75 mg PO TID 09/07/24 [History Confirmed 09/30/24] lisinopril 5 mg tablet 5 mg PO DAILY 09/30/24 [History Confirmed 09/30/24] Exam Physical Exam Vital Signs: Temp Pulse Resp BP Pulse Ox O2 Del Method 97.7 F 66 19 162/74 H 100 Room Air 09/30/24 14:00 09/30/24 14:00 09/30/24 14:00 09/30/24 14:00 09/30/24 14:00 09/30/24 14:00 Narrative: General: Awake alert, no acute distress HEENT: head atraumatic, normocephalic, moist mucous membranes, no tongue trauma noted, poor dentition Neck: supple no masses, no lymphadenopathy CVS: regular rate and rhythm, no murmurs or gallops Respiratory: clear to auscultation bilaterally, some expiratory wheezes noted throughout GI: soft, nondistended, nontender, positive bowel sounds with no organomegaly Extremity: moves all extremities, no restrictions of movements, no calf tenderness, no edema Neuro: AOx3, CN II-VII intact. Moves all extremities in all planes of motion. Skin: dry, intact no rashes or lesions Results - Hospitalist H&P Lab Results Labs: Laboratory Last Values Corrected WBC 6.5 X10E3/uL (4.1-10.5) 09/30/24 09:16 Uncorrected WBC Count 6.5 x10E3/uL (4.1-10.5) 09/30/24 09:16 RBC 3.89 x10E6/uL (3.90-5.60) L 09/30/24 09:16 Hgb 13.7 g/dL (13.0-17.0) 09/30/24 09:16 POC Hgb 15.0 g/dl (12.0-17.0) 09/30/24 09:18 Hct 39.7 % (38.8-50.0) 09/30/24 09:16 POC Hct 44.0 % (38.0-51.0) 09/30/24 09:18 MCV 102.0 fl (83.5-101) H 09/30/24 09:16 MCH 35.3 pg (27.5-35.2) H 09/30/24 09:16 MCHC 34.6 g/dL (32.5-35.6) 09/30/24 09:16 RDW 15.2 % (12.0-14.8) H 09/30/24 09:16 Plt Count 221 x10E3/uL (150-450) 09/30/24 09:16 MPV 7.0 fl (6.6-10.1) 09/30/24 09:16 Neut % (Auto) 53.8 % (.) 09/30/24 09:16 Lymph % (Auto) 27.0 % (.) 09/30/24 09:16 [place] % (Auto) 16.6 % (.) 09/30/24 09:16 Eos % (Auto) 1.7 % (.) 09/30/24 09:16 Baso % (Auto) 0.9 % (.) 09/30/24 09:16 Nucleat RBC Rel Count 0.1 /100 WBC (0-0.5) 09/30/24 09:16 Neut # (Auto) 3.5 x10E3/uL (1.8-7.7) 09/30/24 09:16 Lymph # (Auto) 1.7 x10E3/uL (1.00-4.8) 09/30/24 09:16 [place] # (Auto) 1.1 x10E3/uL (0.0-0.8) H 09/30/24 09:16 Eos # (Auto) 0.1 x10E3/uL (0.0-0.45) 09/30/24 09:16 Baso # (Auto) 0.1 x10E3/uL (0.0-0.2) 09/30/24 09:16 Monocyte Dist Width 17.57 % (0.00-20.00) 09/30/24 09:16 PT 10.9 Seconds (9.0-12.9) 09/30/24 09:16 INR 1.0 09/30/24 09:16 APTT 30.3 Seconds (25.1-36.5) 09/30/24 09:16 PHA Creatinine Clear 88.38 09/30/24 09:17 POC Sodium 138 mmol/L (138-146) 09/30/24 09:18 Sodium 136 mmol/L (136-145) 09/30/24 09:17 POC Potassium 3.6 mmol/L (3.5-4.9) 09/30/24 09:18 Potassium 3.7 mmol/L (3.5-5.1) 09/30/24 09:17 POC Chloride 98.0 mmol/L (98-109) 09/30/24 09:18 Chloride 101 mmol/L (98-107) 09/30/24 09:17 Carbon Dioxide 28.7 mmol/L (21.0-31.0) 09/30/24 09:17 POC Total CO2 28 mmol/L (23-29) 09/30/24 09:18 Anion Gap 10.0 mEq/L (6.0-15.0) 09/30/24 09:17 POC BUN 16 mg/dl (8-26) 09/30/24 09:18 BUN 15 mg/dL (7-25) 09/30/24 09:17 Creatinine 0.72 mg/dL (0.70-1.30) 09/30/24 09:17 POC Creatinine 0.9 mg/dl (0.6-1.3) 09/30/24 09:18 Est GFR (CKD-EPI) > 60.0 mL/Min 09/30/24 09:17 Glucose 75 mg/dL (70-100) 09/30/24 09:17 POC Whole Bld Glucose 75 mg/dl (70-105) 09/30/24 09:18 Calcium 8.6 mg/dL (8.6-10.3) 09/30/24 09:17 POC Ioniz Calcium Reginaldo 1.16 mol/L (1.12-1.32) 09/30/24 09:18 Total Bilirubin 0.5 mg/dl (0.3-1.0) 09/30/24 09:17 AST 25 U/L (13-39) 09/30/24 09:17 ALT 13 U/L (7-52) 09/30/24 09:17 Alkaline Phosphatase 62 U/L (34-104) 09/30/24 09:17 Total Creatine Kinase 115 U/L (30-223) 09/30/24 09:17 Troponin I High Sens 18 ng/L (0-20) 09/30/24 09:17 Total Protein 7.1 gm/dL (6.4-8.9) 09/30/24 09:17 Albumin 4.3 gm/dL (3.5-5.7) 09/30/24 09:17 Globulin 2.8 gm/dL 09/30/24 09:17 Albumin/Globulin Ratio 1.5 09/30/24 09:17 Urine Color Colorless (Yellow) 09/30/24 10:12 Urine Appearance Clear (Clear) 09/30/24 10:12 Urine pH 7.0 (5.0-9.0) 09/30/24 10:12 Ur Specific [place] 1.012 (1.001-1.030) 09/30/24 10:12 Urine Protein Negative mg/dL (Negative) 09/30/24 10:12 Urine Glucose (UA) Normal mg/dL (Normal) 09/30/24 10:12 Urine Ketones Negative (Negative) 09/30/24 10:12 Urine Occult Blood Negative (Negative) 09/30/24 10:12 Urine Nitrite Negative (Negative) 09/30/24 10:12 Urine Bilirubin Negative (Negative) 09/30/24 10:12 Urine Urobilinogen Normal mg/dL (Normal) 09/30/24 10:12 Ur Leukocyte Esterase Negative (Negative) 09/30/24 10:12 Assessment & Plan Assessment/Plan (1) Sleep apnea: Plan: ? Admit under observation, telemetry ? If a sleep apnea exacerbation was a diagnosis I believe this would be the diagnosis for admission ? Will order CPAP machine to use tonight, patient has not had his home machine sent to him yet he is still waiting. ? I do not believe there is any evidence of seizures or CVA at this point in time, will hold off onMRI of the brain though I will check A1c and lipid panel since he is here in the hospital for risk stratification. (2) Smoker: Plan: ? She does admit to being a daily smoker, on my evaluation he is coughing up a lot of phlegm and says this is a little worse than his baseline. Will order respiratory panel to rule out any viral causes for COPD exacerbation though he does not have a formal diagnosis of COPD. He would likely benefitfrom low- doselung CT in the outpatient setting. Would also benefit from abdominal ultrasoundfor AAAscreening. (3) Cervical myelopathy: Plan: Being worked up by neurosurgery, unrelated to diagnosis of admission (4) Primary hypertension: Plan: Continue home medications his regular blood pressure on chart review appears to be around 165 systolic. He has carvedilol 12.5 mg twice daily on his home medications, unfortunately he has both lisinopril and losartan on his home medications believes he has taken them both. Will discontinue lisinopril in favor of losartan. Unfortunately there is no fill history for other on these medications. Willplan to uptitrate his carvedilol. Plan ? DVT prophylaxis addressed ? Regular diet ? Full code IP vs OBS Justification Based on differential dx, clinical care plan, and risk of adverse events, if untreated, in my clinical judgement this patient requires an acute care setting as: OBSERVATION because of an expectation of an under 2 midnight stay. Estimated length of stay (# of days): 1 Documented By: Baron Ruggiero DO 09/30/24 1600 Signed By: 09/30/24 1613 [facility]03-13-2025 Radiology Diagnostic study note [facility] Main [place] [address] [place] [address] CT Scan Report Signed Patient: Michael Vaughn MR#: [id number] : 1950 Acct:[id number] Age/Sex: 74 / M ADM Date: 5 Loc: ER Room: Type: [facility] ER Attending Dr: Copies to: Lynette Richardson Do~ Ordering Provider: Lynette Richardson Do Date of Service: 09/30/24 CT/CT angio head: Stroke Standby CT angio head 09/30/2024 9:36 AM SIGNS AND SYMPTOMS: ^Stroke [place] TECHNIQUE: Multi-detector CT angiography axial slices of the head and neck during intravenous administration of IV contrast material. Sagittal, coronal, and 3-D reconstructions were performed and viewed on a separate workstation. CT was performed with one or more of the following dose reduction techniques: Automated exposure control, adjustment of the mA and/or kV according to patient size, or use of iterative reconstruction technique. Stenoses were measured usingthe NASCET criteria. COMPARISON: CT head 09/30/2024 FINDINGS: CTA HEAD: Mild plaque involving the intracranial ICAs. Both carotid termini patent. Anterior cerebral arteries and middle cerebral arteries are patent. Right vertebral artery functionally becomes PICA. Left vertebral artery becomes the basilar artery. Basilar tip and bifurcation patent. origin left posterior cerebral artery. CTA NECK: There is a normal three-vessel arch. The subclavian arteries are within normal limits. The vertebral arteries arise from the subclavian arteries and are normal in course and caliber up to the skull base. The common and internal carotid arteries noted mild plaque both bifurcations without significant narrowing.. Visualized lung parenchyma is clear. Multilevel degenerative changes of the cervical spine. The paraspinous soft tissues are within normal limits. CT/CT angio head IMPRESSION: Negative for large vessel occlusion or hemodynamically significant stenosis. Impression dictated by: Luis F Kirk M.D.09/30/2024 9:59 AM Dictation Location: [place] [address] Transcribed By: [facility] 09/30/24 0959 Dictated By: Luis F Kirk MD 09/30/24 0949 Signed By: 09/30/24 0959 [facility] Work Phone: 1(854) 292-232003-13-2025 Radiology Diagnostic study [facility] Main [place] [address] [place] [address] CT Scan Report Signed Patient: Michael Vaughn MR#: [id number] : 1950 Acct:[id number] Age/Sex: 74 / M ADM Date: 5 Loc: 3T Room: [address] [place] [address] Type: ADM INOo Attending Dr: Baron Ruggiero DO Copies to: Do Baron Preston DO~ Ordering Provider: Lynette Richardson Do Date of Service: 09/30/24 CT/CT angio neck: Stroke Standby ([id number]) CT/CT angio head: Stroke Standby CT angio head 09/30/2024 9:36 AM SIGNS AND SYMPTOMS: ^Stroke Standby TECHNIQUE: Multi-detector CT angiography axial slices of the head and neck during intravenous administration of IV contrast material. Sagittal, coronal, and 3-D reconstructions were performed and viewed on a separate workstation. CT was performed with one or more of the following dose reduction techniques: Automated exposure control, adjustment of the mA and/or kV according to patient size, or use of iterative reconstruction technique. Stenoses were measured usingthe NASCET criteria. COMPARISON: CT head 09/30/2024 FINDINGS: CTA HEAD: Mild plaque involving the intracranial ICAs. Both carotid termini patent. Anterior cerebral arteries and middle cerebral arteries are patent. Right vertebral artery functionally becomes PICA. Left vertebral artery becomes the basilar artery. Basilar tip and bifurcation patent. origin left posterior cerebral artery. CTA NECK: There is a normal three-vessel arch. The subclavian arteries are within normal limits. The vertebral arteries arise from the subclavian arteries and are normal in course and caliber up to the skull base. The common and internal carotid arteries noted mild plaque both bifurcations without significant narrowing.. Visualized lung parenchyma is clear. Multilevel degenerative changes of the cervical spine. The paraspinous soft tissues are within normal limits. CT/CT angio head IMPRESSION: Negative for large vessel occlusion or hemodynamically significant stenosis. Impression dictated by: Luis F Kirk M.D.09/30/2024 9:59 AM Dictation Location: [place] [address] Transcribed By: [facility] 09/30/2459 Dictated By: Luis F Kirk MD 09/30/24 0949 Signed By: 09/30/2459 [facility] Work Phone: [phone]) [phone] [facility] [place] [address] CT Scan Report Signed Patient: Michael Vaughn MR#: [id number] : 1950 Acct:[id number] Age/Sex: 74 / M ADM Date: 5 Loc: ER Room: Type: PRE ER Attending Dr: Copies to: Lynette Richardson Do~ Ordering Provider: Lynette Richardson Do Date of Service: 09/30/24 CT/CT head stroke alert wo con: acute stroke/neuro deficits CT BRAIN WITHOUT CONTRAST: CLINICAL HISTORY: Stroke alert, last known well 11:00 PM last night COMPARISON: 09/21/2019 TECHNIQUE: Contiguous axial unenhanced images were obtained through the brain. This CT exam was performed using one or more following dose reduction techniques: Automated exposure control, adjustmentof the mA and/or kV accordingto patient size, or use of iterative reconstruction technique. FINDINGS: There is no evidence of midline shift, intra or extra-axial fluid collection, or hemorrhage Focal hypoattenuation left precentral gyrus possibly related to microvascular changes. Otherwise mild periventricular subcortical hypoattenuation suggestive chronic small vessel disease . Dilated perivascular space left basal ganglia. There are vascular calculations Visualized intraorbital contents appear unremarkable. Visualized paranasal sinuses are clear. Left frontal scalp soft tissue swelling and subcutaneous hematoma, slightly improved. CT/CT head stroke alert wo con IMPRESSION: NO ACUTE INTRACRANIAL ABNORMALITY. CHRONIC MICROVASCULAR AND INVOLUTIONAL CHANGES. LEFT FRONTAL SCALP SOFT TISSUE SWELLING, MILDLY IMPROVED. Discussed with the emergency department physician at 9:34 AM 09/30/2024 Impression dictated by: Luis F Kirk M.D.09/30/2024 9:36 AM Dictation Location: [place] [address] Transcribed By: [facility] 09/30/24935 Dictated By: Luis F Kirk MD 09/30/2430 Signed By: 09/30/2436 [facility] Work Phone: [phone]) [phone] Radiology Diagnostic study [facility] Main [place] [address] [place] [address] CT Scan Report Signed Patient: Michael Vaughn MR#: [id number] : 1950 Acct:[id number] Age/Sex: 74 / M ADM Date: 5 Loc: ICMR Room: Type: REG CLI Attending Dr: Florence Beltarn APRN Copies to: Florence Beltran APRN~ Ordering Provider: Florence Beltran APRN Date of Service: 09/20/24 CT/CT head/brain wo con: S19.9XXA - Unspecified injury of neck, initial encounter CT BRAIN WITHOUT CONTRAST: CLINICAL HISTORY: Gait abnormality, ataxic gait, multiple falls COMPARISON: None TECHNIQUE: Contiguous axial unenhanced images were obtained through the brain. This CT exam was performed using one or more following dose reduction techniques: Automated exposure control, adjustmentof the mA and/or kV accordingto patient size, or use of iterative reconstruction technique. FINDINGS: There is no evidence of midline shift, intra or extra-axial fluid collection, or hemorrhage Focal hypoattenuation left precentral gyrus hand knob image 28 possibly related to microvascular changes. Otherwise mild periventricular subcortical hypoattenuation suggestive chronic small vessel disease . There are vascular calculations Visualized intraorbital contents appear unremarkable. Visualized paranasal sinuses are clear. Left frontal scalp soft tissue swelling and subcutaneous hematoma. CT/CT head/brain wo con IMPRESSION: NO ACUTE INTRACRANIAL ABNORMALITY. CHRONIC MICROVASCULAR AND INVOLUTIONAL CHANGES. LEFT FRONTAL SCALP SOFT TISSUE SWELLING. Impression dictated by: Luis F Kirk M.D.09/20/2024 2:29 PM Dictation Location: [place] [address] Transcribed By: [facility] 09/20/24 1429 Dictated By: Luis F Kirk MD 09/20/24 1415 Signed By: 09/20/24 1429 [facility] Work Phone: [phone]) [phone] History of Present illness Narrative* Rolan Monaco, BRADEN - 09/09/2024 2:30 PM EST Images from the original note were not included. Subjective Patient ID: Michael Vaughn is a 74 y.o. male who presents for F/U from specialists appointments. Michael presents today for a F/U appointment for his sodium. Pt has a history of sleep apnea. He has not wore his machine for several years. He has daytime drowsiness and that is when he falls out of his chair. His reports that he snores and flails his arms when he is sleeping. He would benefit from a sleep study and a machine to reduce his awakening atnight and decrease his daytime drowsiness. Current Outpatient Medications on File Prior to Visit Medication Sig Dispense Refill ALPRAZolam (Xanax) 0.25 MG tablet Take 1 tablet (0.25 mg) by mouth 3 (three) times a day as needed for anxiety 30 tablet 2 Blood Pressure kit 1 Units in the morning and 1 Units in the evening and 1 Units before bedtime. 1 kit 0 busPIRone (Buspar) 5 MG tablet TAKE TWO TABLETS BY MOUTH EVERY MORNING, TAKE ONE TABLET BY MOUTH EVERY AFTERNOON, AND TAKE ONE TABLET BY MOUTH EVERY EVENING 450 tablet 3 carvedilol (Coreg) 12.5 MG tablet Take 1 tablet (12.5 mg) by mouth in the morning and 1 tablet (12.5 mg) before bedtime. 200 tablet 3 hydroCHLOROthiazide (HYDRODiuril) 50 MG tablet Take 1 tablet (50 mg) by mouth Daily 90 tablet 3 HYDROcodone-acetaminophen ([place]) 5-325 MG tablet lisinopril 5 MG tablet TAKE 1 TABLET BY MOUTH DAILY 100 tablet 3 sodium chloride 1 g tablet Take 1 tablet (1 g) by mouth in the morning and 1 tablet (1 g) at noon and 1 tablet (1 g) in the evening and 1 tablet (1 g) before bedtime. 120 tablet 11 tamsulosin (Flomax) 0.4 MG 24 hr capsule Take 1 capsule (0.4 mg) by mouth Daily 90 capsule 1 tiZANidine (Zanaflex) 4 MG [...] Types: Cigarettes Quit date: 2003 Years since quittin.1 Smokeless tobacco: Never Vaping Use Vaping status: [...] Procedure Laterality Date CARPAL TUNNEL RELEASE Bilateral 2020 HERNIA REPAIR KNEE SURGERY 2001 dr day TOTAL KNEE ARTHROPLASTY Right 02/04/2024 Dr Day Visit Vitals Smoking Status Former Review of Systems Constitutional: Positive for fatigue. Eyes: Negative. Respiratory: Negative. Cardiovascular: Negative. Gastrointestinal: Negative. Genitourinary: Negative. Musculoskeletal: Negative. Skin: Negative. Neurological: Positive for dizziness, syncope, weakness and light-headedness. Psychiatric/Behavioral: Positive for sleep disturbance. Endocrine: Negative. Objective Physical Exam Vitals reviewed. Constitutional: Appearance: Normal appearance. HENT: Head: Normocephalic. Nose: Nose normal. Mouth/Throat: Mouth: Mucous membranes are moist. Pharynx: Oropharynx is clear. Eyes: Conjunctiva/sclera: Conjunctivae normal. Cardiovascular: Rate and Rhythm: Normal rate. Pulmonary: Effort: Pulmonary effort is normal. Skin: General: Skin is warm and dry. Neurological: General: No focal deficit present. Mental Status: He is alert and oriented to person, place, and time. Psychiatric: Mood and Affect: Mood normal. Behavior: Behavior normal. Thought Content: Thought content normal. Judgment: Judgment normal. Assessment/Plan Diagnoses and all orders for this visit: Sleep apnea, unspecified type - Ambulatory referral to Sleep Studies; Future Patient in need for a new BIPAP machine. He has not used his machine in several years. He is becoming more symptomatic and would benefit from a sleep study. He would like an at home sleep study. We will send over referral and await recommendations. No follow-ups on file. documented in this encounterMer[facility]. [id number] Evaluation note* Diagnosis Onset Date Resolution Status Admit Date Ataxic gait acute August 26, 2024 1:02pm Fall acute August 26, 2024 1:02pm Falls acute August 26, 2024 1:02pm Injury of head, face and neck acute August 26, 2024 1:02pm Loss of consciousness acute Aug 1:02pm Upper extremity weakness acute August 26, 2024 1:02pm Hyponatremia acute August 1:05pm Imbalance acute September 07, 2024 1:05pm Primary hypertension inactive 2024 1:05pm Ataxic gait acute September 23 1:50pm Cervical myelopathy acute September 23, 2024 1:50pm Upper extremity weakness acute September 23, 2024 1:50pm Cervical myelopathy acute September 30, 2024 12:32pm Sleep apnea acute September 30, 2 025 12:32pm Smoker acute September 30 12:32pm Acute confusion inactive September 12:32pm Primary hypertension inactive 2024 12:32pm Seizure deleted September 30 12:32pm TIA (transient ischemic attack) deleted September 30, 2024 12:32pm Cervical myelopathy acute October 06, 2024 2:13pm Acute respiratory failure wi hypoxia and hypercapnia acute November 042024 5:44am Alcohol abuse acute November 04, 2024 5:44am Cervical myelopathy acute November 04, 2024 5:44am Difficult airway for intubation acute November 04, 2024 5:44am JULI on CPAP acute November 04, 2 025 5:44am Partial obstruction of airway acute November 04, 2024 5:44am Stridor acute November 04 5:44am [facility] Work Phone: 1(400) 867-756502-06-2025 Evaluation note* Diagnosis Onset Date Resolution Status Admit Date Ataxic gait acute August 26, 2024 1:02pm Fall acute August 26, 2024 1:02pm Falls acute August 26, 2024 1:02pm Injury of head, face and neck acute August 26, 2024 1:02pm Loss of consciousness acute Aug 1:02pm Upper extremity weakness acute August 26, 2024 1:02pm Hyponatremia acute August 1:05pm Imbalance acute September 07, 2024 1:05pm Primary hypertension inactive 2024 1:05pm Ataxic gait acute September 23 1:50pm Cervical myelopathy acute September 23, 2024 1:50pm Upper extremity weakness acute September 23, 2024 1:50pm Cervical myelopathy acute September 30, 2024 12:32pm Sleep apnea acute September 30, 2 025 12:32pm Smoker acute September 30 12:32pm Acute confusion inactive September 12:32pm Primary hypertension inactive Brandon 2024 12:32pm Seizure deleted September 30 12:32pm TIA (transient ischemic attack) deleted September 30, 2024 12:32pm Cervical myelopathy acute October 06, 2024 2:13pm Acute respiratory failure wi th hypoxia and hypercapnia acute November 042024 5:44am Alcohol abuse acute November 04, 2024 5:44am Cervical myelopathy acute November 04, 2024 5:44am Difficult airway for intubation acute November 04, 2024 5:44am JULI on CPAP acute November 04, 025 5:44am Partial obstruction of airway acute November 04, 2024 5:44am Stridor acute November 04 5:44am Acute respiratory failure wi th hypoxia and hypercapnia acute November 122024 2:36pm Alcohol abuse acute November 12, 2024 2:36pm BPH (benign prostatic hyperplasia) acute November 12, 2024 2:36pm Cervical myelopathy acute November 12, 2024 2:36pm Depression acute November 12 2:36pm Hypertension acute November 12, 2024 2:36pm Impaired mobility and activities of daily living acute November 12, 2024 2:36pm JULI on CPAP acute November 12, 025 2:36pm Partial obstruction of airway acute November 12, 2024 2:36pm [facility] Work Phone: 1(182) 346-411801-28-2025 Telephone encounter Note* Telephone Encounter - Milena Paz - 08/17/2024 9:12 AM EST Patient called wanted to let rolan know that he saw an ortho surgeon and he did not agree with [facility] has told him about the finding. The ortho surgeon only saw arthritis. [facility] [id number] Miscellaneous Notes* Telephone Encounter - Milena Paz - 08/17/2024 9:12 AM EST Patient called wanted to let rolan know that he saw an ortho surgeon and he did not agree with [facility] has told him about the finding. The ortho surgeon only saw arthritis. documented in this encounterMer[facility]. [id number] Evaluation note* Diagnosis Onset Date Resolution Status Admit Date Low back pain acute July 10:36am Primary osteoarthritis of le ft hip acute August 10 10:36am Primary osteoarthritis of ri ght hip acute August 10 10:36am [facility] Work Phone: 1(607) 914-750301-21-2025 Evaluation note* Diagnosis Onset Date Resolution Status Admit Date Low back pain acute July 10:36am Primary osteoarthritis of le ft hip acute August 10 10:36am Primary osteoarthritis of ri ght hip acute August 10 10:36am Ataxic gait acute August 26, 2024 1:02pm Falls acute August 26, 2024 1:02pm Upper extremity weakness acute August 26, 2024 1:02pm [facility] Work Phone: 1(765) 492-737601-21-2025 Evaluation note* Diagnosis Onset Date Resolution Status Admit Date Low back pain acute July 10:36am Primary osteoarthritis of le ft hip acute August 10 10:36am Primary osteoarthritis of ri ght hip acute August 10 10:36am Ataxic gait acute August 26, 2024 1:02pm Fall acute August 26, 2024 1:02pm Falls acute August 26, 2024 1:02pm Injury of head, face and neck acute August 26, 2024 1:02pm Loss of consciousness acute Aug 1:02pm Upper extremity weakness acute August 26, 2024 1:02pm Hyponatremia acute August 1:05pm Imbalance acute September 07, 2024 1:05pm Primary hypertension acute 2024 1:05pm [facility] Work Phone: 1(854) 516-865601-21-2025 Evaluation note* Diagnosis Onset Date Resolution Status Admit Date Low back pain acute July 10:36am Primary osteoarthritis of le ft hip acute August 10 10:36am Primary osteoarthritis of ri ght hip acute August 10 10:36am Ataxic gait acute August 26, 2024 1:02pm Fall acute August 26, 2024 1:02pm Falls acute August 26, 2024 1:02pm Injury of head, face and neck acute August 26, 2024 1:02pm Loss of consciousness acute Aug 1:02pm Upper extremity weakness acute August 26, 2024 1:02pm Hyponatremia acute August 1:05pm Imbalance acute September 07, 2024 1:05pm Primary hypertension acute 2024 1:05pm Ataxic gait acute September 23 1:50pm Cervical myelopathy acute September 23, 2024 1:50pm Upper extremity weakness acute September 23, 2024 1:50pm Acute confusion acute September 12:32pm Seizure acute September 30 12:32pm TIA (transient ischemic attack) acut e September 30, 2024 12:32pm [facility] Work Phone: 1(368) 811-633001-21-2025 Evaluation note* Diagnosis Onset Date Resolution Status Admit Date Low back pain acute July 10:36am Primary osteoarthritis of le ft hip acute August 10 10:36am Primary osteoarthritis of ri ght hip acute August 10 10:36am Ataxic gait acute August 26, 2024 1:02pm Fall acute August 26, 2024 1:02pm Falls acute August 26, 2024 1:02pm Injury of head, face and neck acute August 26, 2024 1:02pm Loss of consciousness acute Aug 1:02pm Upper extremity weakness acute August 26, 2024 1:02pm Hyponatremia acute August 1:05pm Imbalance acute September 07, 2024 1:05pm Primary hypertension acute 2024 1:05pm Ataxic gait acute September 23 1:50pm Cervical myelopathy acute September 23, 2024 1:50pm Upper extremity weakness acute September 23, 2024 1:50pm Acute confusion acute September 12:32pm Cervical myelopathy acute September 30, 2024 12:32pm Primary hypertension acute Brandon h 2024 12:32pm Seizure acute September 30 12:32pm Sleep apnea acute September 30 025 12:32pm Smoker acute September 30 12:32pm TIA (transient ischemic attack) acut e September 30, 2024 12:32pm [facility] Work Phone: 1(787) 658-711701-21-2025 Evaluation note* Diagnosis Onset Date Resolution Status Admit Date Low back pain acute July 10:36am Primary osteoarthritis of le ft hip acute August 10 10:36am Primary osteoarthritis of ri ght hip acute August 10 10:36am Ataxic gait acute August 26, 2024 1:02pm Fall acute August 26, 2024 1:02pm Falls acute August 26, 2024 1:02pm Injury of head, face and neck acute August 26, 2024 1:02pm Loss of consciousness acute Aug 1:02pm Upper extremity weakness acute August 26, 2024 1:02pm Hyponatremia acute August 1:05pm Imbalance acute September 07, 2024 1:05pm Primary hypertension acute 2024 1:05pm Ataxic gait acute September 23 1:50pm Cervical myelopathy acute September 23, 2024 1:50pm Upper extremity weakness acute September 23, 2024 1:50pm Acute confusion acute September 12:32pm Cervical myelopathy acute September 30, 2024 12:32pm Primary hypertension acute Brandon h 2024 12:32pm Seizure acute September 30 12:32pm Sleep apnea acute September 30 025 12:32pm Smoker acute September 30 12:32pm TIA (transient ischemic attack) acut e September 30, 2024 12:32pm Cervical myelopathy acute October 06, 2024 2:13pm [facility] Work Phone: 1([phone]) 867-309501-21-2025 Evaluation note* Diagnosis Onset Date Resolution Status Admit Date Low back pain acute July 10:36am Primary osteoarthritis of le ft hip acute August 10 10:36am Primary osteoarthritis of right hip acute August 10 10:36am Ataxic gait acute August 26, 2024 1:02pm Fall acute August 26, 2024 1:02pm Falls acute August 26, 2024 1:02pm Injury of head, face and neck acute August 26, 2024 1:02pm Loss of consciousness acute Aug 1:02pm Upper extremity weakness acute August 26, 2024 1:02pm Hyponatremia acute August 1:05pm Imbalance acute September 07, 2024 1:05pm Primary hypertension inactive Febr uary 2024 1:05pm Ataxic gait acute September 23 1:50pm Upper extremity weakness acute September 23, 2024 1:50pm Cervical myelopathy inactive September 23, 2024 1:50pm Sleep apnea acute September 30, 025 12:32pm Smoker acute September 30 12:32pm Acute confusion inactive September 12:32pm Cervical myelopathy inactive September 30, 2024 12:32pm Primary hypertension inactive 2024 12:32pm Seizure deleted September 30 12:32pm TIA (transient ischemic attack) deleted September 30, 2024 12:32pm Cervical myelopathy inactive October 06, 2024 2:13pm [facility] Work Phone: 1(146) 694-671201-16-2025 History of Present illness Narrative* Rolan Monaco, SLABBER [employer]IGHT - 08/05/2024 4:00 PM EST Images from the original note were not included. Subjective Patient ID: Michael Vaughn is a 74 y.o. male who presents for dawn BP. Michael presents today for aF/U for HP Current Outpatient Medications on File Prior to Visit Medication Sig Dispense Refill ALPRAZolam (Xanax) 0.25 MG tablet Take 1 tablet (0.25 mg) by mouth 3 (three) times a day as needed for anxiety 30 tablet 2 Blood Pressure kit 1 Units in the morning and 1 Units in the evening and 1 Units before bedtime. 1 kit 0 busPIRone (Buspar) 5 MG tablet TAKE TWO TABLETS BY MOUTH EVERY MORNING, TAKE ONE TABLET BY MOUTH EVERY AFTERNOON, AND TAKE ONE TABLET BY MOUTH EVERY EVENING 450 tablet 3 carvedilol (Coreg) 12.5 MG tablet Take 1 tablet (12.5 mg) by mouth in the morning and 1 tablet (12.5 mg) before bedtime. 200 tablet 3 hydroCHLOROthiazide (HYDRODiuril) 50 MG tablet Take 1 tablet (50 mg) by mouth Daily 90 tablet 3 HYDROcodone-acetaminophen ([place]) 5-325 MG tablet lisinopril 5 MG tablet Take 1 tablet (5 mg) by mouth Daily 30 tablet 0 sodium chloride 1 g tablet Take 1 tablet (1 g) by mouth in the morning and 1 tablet (1 g) in the evening and 1 tablet (1 g) before bedtime. 90 tablet 11 tamsulosin (Flomax) 0.4 MG 24 hr capsule Take 1 capsule (0.4 mg) by mouth Daily 90 capsule 1 tiZANidine (Zanaflex) 4 MG [...] Procedure Laterality Date CARPAL TUNNEL RELEASE Bilateral 2020 HERNIA REPAIR KNEE SURGERY [address] day TOTAL KNEE ARTHROPLASTY Right 02/04/2024 Dr Day Visit Vitals Smoking Status Former Review of Systems Constitutional: Negative. HENT: Negative. Eyes: Negative. Respiratory: Negative. Cardiovascular: Negative. Gastrointestinal: Negative. Genitourinary: Negative. Musculoskeletal: Negative. Skin: Negative. Neurological: Positive for dizziness and weakness. Falls Psychiatric/Behavioral: Negative. All other systems reviewed and are negative. Objective Physical Exam Vitals reviewed. Constitutional: Appearance: Normal appearance. HENT: Head: Comments: Blackened eye on the left, abrasion to left frontal area from previous fall Nose: Nose normal. Mouth/Throat: Mouth: Mucous membranes are moist. Pharynx: Oropharynx is clear. Eyes: Conjunctiva/sclera: Conjunctivae normal. Cardiovascular: Rate and Rhythm: Normal rate. Pulmonary: Effort: Pulmonary effort is normal. Breath sounds: Wheezing present. Comments: Wheezing in bilateral upper lobes Skin: General: Skin is warm and dry. Neurological: General: No focal deficit present. Mental Status: He is alert and oriented to person, place, and time. Psychiatric: Mood and Affect: Mood normal. Behavior: Behavior normal. Assessment/Plan Diagnoses and all orders for this visit: Hyponatremia - Ambulatory referral to Nephrology; Future Pt is on a 1500 ml fluid restriction in 24 hours. Discussed how to calculate fluid restriction. and pt verbalized understanding. TSH is WNL, Pt continues on NaCL tabs 4GM. Await referral to nephrology. Discussed case with collaborating physician and he feels that a referral needs to be made. No follow-ups on file. documented in this encounterMer[facility]. [id number] History of Present illness Narrative* Corine Ojeda NP - 08/02/2024 1:00 PM EST HISTORY OF PRESENT ILLNESS: Michael Vaughn is an 74 y.o. @ male. Follow up RT TKA RT knee: 6 months s/p RT TKA (02/04/24). Denies pain in the knee. He notes he is using a cane due to his backand hip, and frequent falls. He is doing a HEP. He takes muscle relaxers for his back and hip. Denies N/T. Here with his MEDICATION: Current Outpatient Medications on File Prior to Visit Medication Sig Dispense Refill ALPRAZolam (Xanax) 0.25 MG tablet Take 1 tablet (0.25 mg) by mouth 3 (three) times a day as needed for anxiety 30 tablet 2 Blood Pressure kit 1 Units in the morning and 1 Units in the evening and 1 Units before bedtime. 1 kit 0 busPIRone (Buspar) 5 MG tablet TAKE TWO TABLETS BY MOUTH EVERY MORNING, TAKE ONE TABLET BY MOUTH EVERY AFTERNOON, AND TAKE ONE TABLET BY MOUTH EVERY EVENING 450 tablet 3 carvedilol (Coreg) 12.5 MG tablet Take 1 tablet (12.5 mg) by mouth in the morning and 1 tablet (12.5 mg) before bedtime. 200 tablet 3 hydroCHLOROthiazide (HYDRODiuril) 50 MG tablet Take 1 tablet (50 mg) by mouth Daily 90 tablet 3 HYDROcodone-acetaminophen ([place]) 5-325 MG tablet lisinopril 5 MG tablet Take 1 tablet (5 mg) by mouth Daily 30 tablet 0 sodium chloride 1 g tablet Take 1 tablet (1 g) by mouth in the morning and 1 tablet (1 g) in the evening and 1 tablet (1 g) before bedtime. 90 tablet 11 tamsulosin (Flomax) 0.4 MG 24 hr capsule Take 1 capsule (0.4 mg) by mouth Daily 90 capsule 1 tiZANidine (Zanaflex) 4 MG [...] History: Diagnosis Date Aphthous ulcer Cerebrovascular accident ([facility]) Depression ([facility]) Dizziness Elevated blood pressure reading Hypertension ([facility]/HCC) Lymphadenitis Sleep apnea ALLERGIES: No Known Allergies VITALS: Visit Vitals Smoking Status Former PHYSICAL EXAM: Ortho Exam RIGHT KNEE No instability, firm endpoints ROM 0-115 Incision well healed Ambulating with quad cane LT hip, no pain with ROM, pain in buttock feels like a 5 inch by 5 inch medial to lateral and 4 inch by 4 inch proximal to distal area of soft swelling that is painful over the buttock, no skin breakdown or bruising XR knee 1 or 2 views right Imaging Result: AP and lateral of right knee showed surgical position and alignment of prosthetic components without evidence of loosening or wear to the femoral, tibial, or patellar components. The alignment appeared to be anatomic. There was no evidence of accelerated or asymmetric wear to the patellar button ortibial tray. There was no evidence of fracture and/or dislocation. Impression: Unremarkable right total knee arthroplasty. ASSESSMENT: ICD-10-CM 1. Status post right knee replacement Z96.651 2. Right knee pain, unspecified chronicity M25.561 XR knee 1 or 2 views right 3. Falls R29.6 Ambulatory referral to Neurology 4. Left hip pain M25.552 5. Avascular necrosis of bone of left hip (CMS/HCC) M87.052 6. Arthralgia, unspecified joint M25.50 Ambulatory referral to Orthopaedic Surgery Left hip, in regards to the left hip will send to [facility] dr [place]. In regards to the right knee f/U in 6 months with xrays. May do activities as tolerated documented in this encounterMercy Hospital St. [id number] History of Present illness Narrative* Rolan Monaco NP - 07/29/2024 2:00 PM EST Images from the original note were not included. Subjective Patient ID: Michael Vaughn is a 74 y.o. male who presents for hypertension. Michael presents today for a F/U for hypertension and lab results. Current Outpatient Medications on File Prior to Visit Medication Sig Dispense Refill ALPRAZolam (Xanax) 0.25 MG tablet Take 1 tablet (0.25 mg) by mouth 3 (three) times a day as needed for anxiety 30 tablet 2 Blood Pressure kit 1 Units in the morning and 1 Units in the evening and 1 Units before bedtime. 1 kit 0 busPIRone (Buspar) 5 MG tablet TAKE TWO TABLETS BY MOUTH EVERY MORNING, TAKE ONE TABLET BY MOUTH EVERY AFTERNOON, AND TAKE ONE TABLET BY MOUTH EVERY EVENING 450 tablet 3 carvedilol (Coreg) 12.5 MG tablet Take 1 tablet (12.5 mg) by mouth in the morning and 1 tablet (12.5 mg) before bedtime. 200 tablet 3 hydroCHLOROthiazide (HYDRODiuril) 50 MG tablet Take 1 tablet (50 mg) by mouth Daily 90 tablet 3 HYDROcodone-acetaminophen ([place]) 5-325 MG tablet sodium chloride 1 g tablet Take 1 tablet (1 g) by mouth in the morning and 1 tablet (1 g) in the evening and 1 tablet (1 g) before bedtime. 90 tablet 11 tamsulosin (Flomax) 0.4 MG 24 hr capsule Take 1 capsule (0.4 mg) by mouth Daily 90 capsule 1 tiZANidine (Zanaflex) 4 MG [...] Procedure Laterality Date CARPAL TUNNEL RELEASE Bilateral 2020 HERNIA REPAIR KNEE SURGERY [address] dr day TOTAL KNEE ARTHROPLASTY Right 02/04/2024 Dr Day Visit Vitals Smoking Status Former Review of Systems Constitutional: Negative. HENT: Negative. Eyes: Negative. Respiratory: Negative. Cardiovascular: Negative. Gastrointestinal: Negative. Genitourinary: Negative. Musculoskeletal: Negative. Frequent loss of balance Neurological: Positive for dizziness. Falls Psychiatric/Behavioral: Negative. Endocrine: Negative. Objective Physical Exam Vitals reviewed. Constitutional: Appearance: Normal appearance. HENT: Head: Normocephalic. Comments: Bump on left forehead from fall Mouth/Throat: Mouth: Mucous membranes are moist. Pharynx: Oropharynx is clear. Eyes: Conjunctiva/sclera: Conjunctivae normal. Cardiovascular: Rate and Rhythm: Normal rate and regular rhythm. Pulmonary: Effort: Pulmonary effort is normal. Breath sounds: Normal breath sounds. Skin: General: Skin is warm and dry. Neurological: General: No focal deficit present. Mental Status: He is alert and oriented to person, place, and time. Psychiatric: Mood and Affect: Mood normal. Behavior: Behavior normal. Thought Content: Thought content normal. Judgment: Judgment normal. Assessment/Plan Diagnoses and all orders for this visit: Hyponatremia - Sodium; Future Await lab Primary hypertension (CMS/HCC) - lisinopril 5 MG tablet; Take 1 tablet (5 mg) by mouth Daily BP is elevated today. Will add lisinopril. Pt will come back next week for a recheck of his BP and Na+ No follow-ups on file. documented in this encounterMercy Hospital St. [id number] History of Present illness Narrative* Rolan Monaco NP - 07/20/2024 10:30 AM EST HPI Follow-up Additional comments: [facility] 07/16/24 Results Additional comments: Lab result 07/19/24 Last edited by Marly Nuñez LPN on 07/20/2024 10:23 AM. Subjective Patient ID: Michael Vaughn is a 74 y.o. male who presents for Follow-up ([facility] 07/16/24) and Results (Lab result 07/19/24). Pt went to [facility] ER after fall at home Pt states he has fallen since ER visit Had labs rechecked yesterday Pt states he feels dizzy at times mostly early AM and in evening Recheck Na 121 Current Outpatient Medications on File Prior to Visit Medication Sig Dispense Refill ALPRAZolam (Xanax) 0.25 MG tablet Take 1 tablet (0.25 mg) by mouth 3 (three) times a day as needed for anxiety 30 tablet 2 busPIRone (Buspar) 5 MG tablet TAKE TWO TABLETS BY MOUTH EVERY MORNING, TAKE ONE TABLET BY MOUTH EVERY AFTERNOON, AND TAKE ONE TABLET BY MOUTH EVERY EVENING 450 tablet 3 carvedilol (Coreg) 12.5 MG tablet Take 1 tablet (12.5 mg) by mouth in the morning and 1 tablet (12.5 mg) before bedtime. 200 tablet 3 hydroCHLOROthiazide (HYDRODiuril) 50 MG tablet Take 1 tablet (50 mg) by mouth Daily 90 tablet 3 HYDROcodone-acetaminophen ([place]) 5-325 MG tablet tamsulosin (Flomax) 0.4 MG 24 hr capsule Take 1 capsule (0.4 mg) by mouth Daily 90 capsule 1 tiZANidine (Zanaflex) 4 MG tablet Take 1 tablet (4 mg) by mouth every 6 (six) hours if needed for muscle spasms 30 tablet 2 venlafaxine (Effexor) 75 MG tablet Take 1 tablet (75 mg) by mouth in the morning and 1 tablet (75 mg) in the evening and 1 tablet (75 mg) before bedtime. 300 tablet 0 Blood Pressure kit 1 Units in the morning and 1 Units in the evening and 1 Units before bedtime. 1 kit 0 [DISCONTINUED] ALPRAZolam (Xanax) 0.25 MG tablet TAKE ONE TABLET BY MOUTH THREE TIMES A DAY NEEDED FOR ANXIETY 30 tablet 2 [DISCONTINUED] carvedilol (Coreg) 12.5 MG tablet TAKE 1 TABLET BY MOUTH TWICE A DAY 200 tablet 3 [DISCONTINUED] tamsulosin (Flomax) 0.4 MG 24 hr capsule TAKE 1 CAPSULE BY MOUTH DAILY 90 capsule 1 [DISCONTINUED] tiZANidine (Zanaflex) 4 MG tablet Take 1 tablet (4 mg) by mouth every 6 (six) hours if needed for muscle spasms 30 tablet 2 No current facility-administered medications on file prior [...] Procedure Laterality Date CARPAL TUNNEL RELEASE Bilateral 2020 HERNIA REPAIR KNEE SURGERY 2001 dr day TOTAL KNEE ARTHROPLASTY Right 02/04/2024 Dr Day Visit Vitals Ht 5' 7 BMI 29.76 kg/m Smoking Status Former BSA 2.02 m Review of Systems Constitutional: Negative. HENT: Negative. Respiratory: Negative. Cardiovascular: Negative. Gastrointestinal: Negative. Genitourinary: Negative. Musculoskeletal: Negative. Hip pain Skin: Negative. Neurological: Positive for dizziness and weakness. Psychiatric/Behavioral: Negative. Objective Physical Exam Vitals reviewed. Constitutional: Appearance: Normal appearance. HENT: Head: Normocephalic. Mouth/Throat: Mouth: Mucous membranes are moist. Cardiovascular: Rate and Rhythm: Normal rate and regular rhythm. Pulmonary: Effort: Pulmonary effort is normal. Breath sounds: Normal breath sounds. Skin: General: Skin is warm and dry. Neurological: General: No focal deficit present. Mental Status: He is alert and oriented to person, place, and time. Psychiatric: Mood and Affect: Mood normal. Behavior: Behavior normal. Thought Content: Thought content normal. Judgment: Judgment normal. Assessment/Plan Diagnoses and all orders for this visit: Avascular necrosis of bone of hip, unspecified laterality (CMS/HCC) - Ambulatory referral to Orthopaedic Surgery; Future Await consult Hyponatremia - sodium chloride 1 g tablet; Take 1 tablet (1 g) by mouth in the morning and 1 tablet (1 g) in theevening and 1 tablet (1 g) before bedtime. Salt your foods, continue with your V-8, Get your TSH checked. Take salt tabs as ordered. We will recheck you sodium level next week. You have some edema in your BLE, take a Lasix 20mg daily x 5 days. Make an appointment next week. No follow-ups on file. documented in this encounterMercy [facility] St. [id number] History of Present illness Narrative* Rolan Monaco NP - 07/15/2024 4:30 PM EST Images from the original note were not [...] by mouth Daily 90 tablet 3 HYDROcodone-acetaminophen ([place]) 5-325 MG tablet tamsulosin (Flomax) 0.4 MG [...] Procedure Laterality Date CARPAL TUNNEL RELEASE Bilateral 2020 HERNIA REPAIR KNEE SURGERY 2001 dr day TOTAL KNEE ARTHROPLASTY Right 02/04/2024 Dr Day Visit Vitals Smoking Status Former Review of [...] palpitations. Advised on relaxation methods to decrease anxietyand depression. Pt offers understanding of treatment plan. [...] No follow-ups on file. documented in this [facility]12-10-2024 Telephone encounter Note* Telephone Encounter - Kari oHgue - 06/29/2024 3:53 PM EST Patient called in asking for Deb. Patient is not happy that he was told something different from before he left. I did let him know we have Corine Ojeda in the [place] office on Mondays but Marlon will not be going there anymore. I tried to get him rescheduled somewhere else. Patient is r equesting a phone call back from a provider. Patient was very upset. Please advise [phone]. [facility] [id number] Miscellaneous Notes* Telephone Encounter - Kari Hogue - 06/29/2024 3:53 PM EST Patient called in asking for Deb. Patient is not happy that he was told something different from before he left. I did let him know we have Corine Ojeda in the [place] office on Mondays but Marlon will not be going there anymore. I tried to get him rescheduled somewhere else. Patient is r equesting a phone call back from a provider. Patient was very upset. Please advise [phone]. documented in this [facility]10-08-2024 History of Present illness Narrative* Edmundo Day, - 04/27/2024 11:15 AM EDT Images from the original note were not [...] by mouth Daily 90 tablet 3 HYDROcodone-acetaminophen ([place]) 5-325 MG tablet tamsulosin (Flomax) 0.4 MG [...] dental work is a controversial topic. I currentlyhave recommended that prophylactic antibiotics be used for 2 years postop and I did advise the patient that the guidelines and recommendations may change on this in the future. I answered all of the patient's questions. Follow up in 3 months with xrays, any issues/concerns follow up sooner. Dr. Day obtained history and examined the patient, I am acting as scribe for Dr. Day/susan Day D.O. documented in this encounterMercy Hospital St. [id number] History of Present illness Narrative* Marcos Ziyad Nichole, DPM - 04/22/2024 1:40 PM EDT Patient: Michael Vaughn : 1950 PCP: Zayra Aquino MD SUBJECTIVE Patient presents today for [...] Daily, Disp: 90 tablet, Rfl: 3 HYDROcodone-acetaminophen ([place]) 5-325 MG tablet, , Disp: , Rfl: [...] Food Insecurity (02/04/2024) Received from [facility] Hunger Screening Within the past 12 months we worried whether our food would run out before we got money to buy more.: Never True Within the past 12 months the food we bought just didn't last and we didn't have money to get more.: Never True Transportation Needs: No Transportation Needs (02/04/2024) Received from [facility] PRAPARE - Transportation Lack of Transportation (Medical): No Lack of Transportation (Non-Medical): No Physical Activity: Not on file Stress: Not on file Social Connections: Not on file Intimate Partner Violence: Not on file Housing Stability: Low Risk (02/04/2024) Received from [facility] Housing Instability Are you worried or [...] of lesions if they do reoccur but discussfurther treatment options including surgical excision however at this time patient just to monitor for any return of lesions and return to clinic p.r.n. Marcos Nichole DPM documented in this encounterMercy Hospital St. [id number] History of Present illness Narrative* Marcos Nichole DPM - 04/08/2024 2:20 PM EDT Patient: Michael Vaughn : 1950 PCP: Zayra Aquino MD SUBJECTIVE Patient presents today for [...] Daily, Disp: 90 tablet, Rfl: 3 HYDROcodone-acetaminophen ([place]) 5-325 MG tablet, , Disp: , Rfl: [...] Food Insecurity (02/04/2024) Received from [facility] Hunger Screening Within the past 12 months we worried whether our food would run out before we got money to buy more.: Never True Within the past 12 months the food we bought just didn't last and we didn't have money to get more.: Never True Transportation Needs: No Transportation Needs (02/04/2024) Received from [facility] PRAPARE - Transportation Lack of Transportation (Medical): No Lack of Transportation (Non-Medical): No Physical Activity: Not on file Stress: Not on file Social Connections: Not on file Intimate Partner Violence: Not on file Housing Stability: Low Risk (02/04/2024) Received from [facility] Housing Instability Are you worried or concerned [...] measuring 0.3 cm x 0.3 cm... Notable toright sub 4th metatarsal region 3 small discrete [...] procedure including high reoccurence rate, infection, pain andconsent given. Application of DSD post procedure. Marcos Nichole DPM documented in this encounterMercy Hospital St. [id number] History of Present illness Narrative* Marcos Nichole DPM - 03/25/2024 1:40 PM EDT Patient: Michael Vaughn : 1950 PCP: Zayra Aquino MD SUBJECTIVE This is a 74 y.o. male that presents today for a chief complaint of painful lesions in his right foot for the past few months. He states sharp pain with ambulation and has tried [id number] warttreatments with negative improvement. Denies any drainage from [...] Daily, Disp: 90 tablet, Rfl: 3 HYDROcodone-acetaminophen ([place]) 5-325 MG tablet, , Disp: , Rfl: [...] Food Insecurity (02/04/2024) Received from [facility] Hunger Screening Within the past 12 months we worried whether our food would run out before we got money to buy more.: Never True Within the past 12 months the food we bought just didn't last and we didn't have money to get more.: Never True Transportation Needs: No Transportation Needs (02/04/2024) Received from [facility] PRAPARE - Transportation Lack of Transportation (Medical): No Lack of Transportation (Non-Medical): No Physical Activity: Not on file Stress: Not on file Social Connections: Not on file Intimate Partner Violence: Not on file Housing Stability: Low Risk (02/04/2024) Received from [facility] Housing Instability Are you worried or [...] measuring 0.3 cm x 0.3 cm... Notable toright sub 4th metatarsal region 3 small discrete [...] patient today and discussed conservative treatments and possibleexcisional biopsy of lesion in the future for pathological diagnosis of specimen. Patient may take [id number]-xccgjxa NSAID p.r.n. for pain Application of salinocaine acid medication to lesion/lesions located at right foot Informed pt of risks and benefits of procedure including high reoccurence rate, infection, pain andconsent given. Application of DSD post procedure. Marcos Nichole DPM documented in this encounterMercy Hospital St. [id number] History of Present illness Narrative* Edmundo Day, DO - 03/16/2024 10:45 AM EDT Images from the original note were not [...] by mouth Daily 90 tablet 3 HYDROcodone-acetaminophen ([place]ashua) 5-325 MG tablet tamsulosin (Flomax) 0.4 MG [...] right knee demonstrate right total knee replacement ingood position alignment without signs of loosening fracture or failure. Impression: Stable appearance of right total knee replacement Ever Day D.O. ASSESSMENT: ICD-10-CM 1. Primary osteoarthritis of [...] 6 weeks, any issues/concerns follow up sooner. obtained history and examined the patient, I am acting as scribe for Dr. Day/susan Day D.O. documented in this encounterMercy Hospital St. [id number] History of Present illness Narrative* Luis Eduardo Mas, PT - 03/15/2024 2:00 PM EDT Physical Therapy Treatment Visit Patient Name: Michael Vaughn Today's Date: 03/15/2024 Encounter Diagnoses Name Primary? Acute pain of right knee Yes Presence of artificial knee joint, right Visit number: 10 Timed Code Treatment Minutes: 53 minutes Total Treatment Time: 63 minutes Time In: 1350 Time Out: 1453 History: Pt is a 73 year old male s/p R TKA. DOS 02/04/[address] Day. Pt reports he was very painful post-op but doing better now. Hayde out yesterday. For pain: Tylenol, Oxcotin when [...] moderate edema distal thigh to ankle- wearing JES hose; TTP at ankle, no TTP around [...] quad cane, SBA. Pt demo good swing through,VC for heel/toe, good follow through. Neuromuscular re-education: [...] right TKA performed on 02-04-[address] Amb with no AD with mild decreased [...] with home program. Follow up with Dr Day 03-16-[address] Day recommendation. I hereby deem this POC medically necessary. Please sign below. Date: documented in this encounterMercy Hospital St. [id number] Instructions* Patient Instructions* Hanane Castillo RN - 01/08/2024 12:45 PM EDT Preoperative Education Checklist- General Surgery date: 02/04/24 Surgery time: 745a Arrival time: 610a Please come back to the hospital between 01/27/24-02/03/24Friday-Friday 630a-430p for a blood draw. Stop at the registration desk upon arrival. The lab will give you a green blood band, bring that backwith you day of surgery. 1. Bring a photo ID and your insurance card with you the day of surgery. You will check in at the main lobby of the [facility]- registration desk is straight ahead as soon as you walk in. Tell them you are here for surgery. 2. If you have a Living Will/Durable Power of Public Health Program Manager for Health Care that is not on file here, please bring a copy the day of surgery. 3. Please shower/bathe the night before surgery with the provided soap or wipes. Do not shower the morning of surgery- you will do use wipes when you arrive here at the hospital before getting into your surgical gown. Do not shave the area of your procedure for 2 days prior to your surgery. 4. NO powder, lotion, perfume/cologne, aftershave, make-up, deodorant, or hair products after you have bathed. 5. NO nail vietnamese/acrylic on at least one finger. If you are having a hand, wrist or foot surgery then all nail vietnamese and artificial/acrylic nails must be removed from that hand or foot. 6. Avoid ALL Aspirin and non-steroidal anti-inflammatory drugs and certain vitamins (Ibuprofen, Advil, Aleve, Excedrin, Meloxicam, Celebrex, fish/krill oil, etc.) for 7 days prior to surgery as instructed by your surgeon and/or your prescribing doctor. Tylenol IS ALLOWED. If you are on Ticlid, Xarelto, Eliquis, Pradaxa, Plavix or Coumadin, please check with your prescribing doctor for instructions for when to stop them. 7. If you use an inhaler, continue to use it routinely. 8. Nothing to eat or drink (not even water, gum, mints, or hard candy!) AFTER midnight prior to your surgery. 9. Take only medications that you are instructed to on the morning of surgery with a TINY SIP OF WATER. 10. Choose a responsible adult that will be able to drive you home when you are discharged from your hospital stay for your surgery and can stay with you in your home for 24 hours after your procedure. You must NOT drive any vehicle or operate any machinery for 24 hours after surgery. 11. When you dress for your appointment, please wear loose fitting clothing that is appropriate to accommodate your surgical area procedure. BRING WITH YOU ANY DEVICES YOU MAY NEED: JES hose, ice machine, sling/swath, brace or special shoe, oversized zip-up or button up shirt, CPAP machine if staying overnight. 12. Do NOT wear jewelry, watches, or any piercings or metal for surgery- leave these valuables and money at home. 13. Do NOT wear contact lenses for surgery- glasses are okay if needed. 14. The anesthesiologist will talk with you the day of surgery and will ask you to sign a Consent Form. 15. Refrain from smoking or any type of tobacco use for at least 8 hours and marijuana for 24 hoursprior to arrival for your surgery. 16. If a GREEN BLOOD band is given to you, please bring it with you for the day of surgery. 17. Notify your surgeon if you develop any illness before your surgery. 18. If you are staying overnight, please DO NOT BRING your home medications with you. 19. If you have any questions prior to surgery, please call the Preadmission Testing office at [phone], Mon.-Fri. 7 a.m.-3 p.m. Leave a voicemail if needed. Pre-Surgery Instructions: Medication Instructions busPIRone (BUSPAR) 15 mg tablet Stop taking 0 days prior to procedure carvediloL (COREG) 12.5 mg tablet Take morning of procedure ferrous sulfate 325 (65 FE) mg EC tablet Stop taking 0 days prior to procedure tiZANidine (ZANAFLEX) 4 mg tablet Stop taking 0 days prior to procedure venlafaxine (EFFEXOR) 75 mg tablet Stop taking 0 days prior to procedure How to Avoid an Infection after Your Surgery Your doctor will give you specific instructions, but remember: -ALWAYS wash hands before caring for your incision. -No picking, scratching, or rubbing your incision. -No creams, lotion, powder, rubbing alcohol or hydrogen peroxide on the incision (can harm the tissue and slow healing). -Your doctor will give you specific instructions for what type of dressing you will need and how often it will need changed for infection purposes. -No tight clothing on incision. -Do not allow anyone to touch your incision unless they are cleaning, checking, or redressing it (be sure they wash their hands first). -No contact of your incision with pets; avoid sleeping with pets. -Take full course of antibiotic if prescribed for you after surgery- do not stop unless directed sergio your physician. You may also be given an antibiotic prior to your surgery to help prevent surgical site infections. -Eat a healthy and varied diet including proteins, fruits, and vegetables to help promote wound healing and keep blood sugars under control if you are diabetic. -Smoking slows the healing process by decreasing the amount of oxygen in your blood that is needed for tissue healing. Try to avoid or stop smoking if possible. LOOK at your incision each morning and each night to check the progress of healing. Some soreness, numbness, itching and/or mild bruising around the incision is normal. Call your doctor if you noticeany of the following: -Increased redness or hardening around the incision area. -Increased pain at the incision site. -Incision feels hot to the touch. -Swelling or pulling apart of the incision edges. -Yellow or green drainage or foul odor coming from the incision. -Bleeding from the incision (apply pressure as needed). -Fever higher than 101 degrees Fahrenheit for more than 4 hours. SHOWERING: Your doctor will give you specific instructions, but remember: -Be careful getting into and out of the shower. -Showers should be quick (5 minutes or less). -Use a clean washcloth to gently wash your incision with soap and water and pat the area dry with aclean towel. -No re-using wash cloths or towels; get a fresh one to clean your incision. -Do not soak in the bathtub, go swimming or use a hot tub (Jacuzzi), or perform activities where your incision is submerged in water or exposed to any fluids or substances until instructed by your doctor. -If your have the sticky strips (steri-strips) over the incision, it is OK to shower with them. Do not remove them. Let them fall off on their own. If you have a question, call your doctor s office. Go to the follow-up appointment with your doctor. [facility] History of Present illness Narrative* Corine Ojeda NP - 09/01/2023 1:15 PM EST Subjective Patient ID: Michael Vaughn is a 73 y.o. male. RT Elbow *cast off and xrays Pt is RT handed Pt fell 5 weeks 2 days ago (DOI 07/26/23) and landed on Rt elbow. Pt was placed in a long posterior splint and prescribed [place]. Presents in LAC. Removed today. Denies pain. Admits aspirin and Tyl prn. Denies N/T. Denies waking at night. Notes swelling to RT elbow, forearm and hand. Denies ice, heat and creams. No sx. He notes he is going to pain management for his lower back and getting injections. Notes he wants knee replacements and wants to make an appointment for Dr. Day to replace them after he is done [...] Impression: Osteoarthritis of the right elbow Ever Day D.O. Assessment/Plan Encounter Diagnoses: ICD-10-CM 1. Right elbow pain M25.521 XR elbow 1 or 2 views right 2. Contusion of right elbow, subsequent encounter S50.01XD 3. Sprain of right elbow, subsequent encounter S53.401D May begin to work on gentle ROM of the elbow, f/U in 2 weeks, continue with bruce therapy, [facility]* Diagnosis Right elbow pain- Primary Pain in [...] left hip documented [facility]* Diagnosis Avascular necrosis of bone of hip, unspecified laterality (CMS/HCC)- Primary Hyponatremia Hyposmolality and/or hyponatremia Status post right knee replacement- Primary documented [facility]* Diagnosis Hyponatremia- Primary Hyposmolality and/or hyponatremia Primary hypertension (CMS/HCC) Unspecified essential hypertension Status post right knee replacement- Primary [facility]* Diagnosis Hyponatremia- Primary Hyposmolality and/or hyponatremia documented [facility]* Diagnosis Onset Date Resolution Status Admit Date Low back pain acute July 10:36am Primary osteoarthritis of le ft hip acute August 10 10:36am Primary osteoarthritis of ri ght hip acute August 10 10:36am [facility] Work Phone: Evaluation note* Diagnosis Status post right knee replacement- Primary Right knee pain, unspecified chronicity Falls Left hip pain Pain in joint, pelvic region and thigh Avascular necrosis of bone of left hip (CMS/HCC) Arthralgia, unspecified joint documented [facility]* Diagnosis Preop examination- Primary Unspecified pre-operative examination Hypertension, unspecified type Sleep apnea, unspecified type Preop examination Unspecified pre-operative examination Hypertension, unspecified type Sleep apnea, unspecified type [facility] Diagnosis Sleep apnea, unspecified type- Primary documented in [facility]* Diagnosis Sleep apnea in adult- Primary Hypertriglyceridemia (CMS/HCC) Pure hyperglyceridemia documented in [facility]* Diagnosis Bilateral carpal tunnel syndrome- Primary Carpal tunnel syndrome Paresthesia of skin Sleep apnea in adult Primary hypertension (CMS/HCC) Unspecified essential hypertension Benign prostatic hyperplasia with urinary frequency Acquired spondylolisthesis Primary osteoarthritis of right knee Morbid obesity (CMS/HCC) Morbid obesity Adjustment disorder with anxiety (CMS/HCC) Adjustment disorder with anxiety Adjustment disorder with depressed mood (CMS/HCC) Adjustment disorder with depressed mood Alcohol abuse Nondependent alcohol abuse, unspecified drinking behavior Hypertriglyceridemia (CMS/HCC) Pure hyperglyceridemia Routine general medical examination at health care facility Routine general medical examination at a health care facility documented [facility]* Diagnosis Tobacco abuse- Primary Tobacco use disorder Adjustment disorder with depressed mood (CMS/HCC) Adjustment disorder with depressed mood SOB (shortness of breath) Shortness of breath Abnormal lung sounds Abnormal chest sounds [facility] Discharge instructionsAmbulatory Orders* Referral to Neurology Time Frame: 08/26/24, Location: [facility] Work Phone: Summary Purpose Family History No Family History Records Found Relationship Condition Age at Onset Recorded Date/T annel father Malignant neoplasm of prostate Unknown Relationship Condition Age at Onset Recorded Date/T annel father Malignant neoplasm of prostate Unknown mother History of tuberculosis Unknown Advance Directives No Advanced Directives Records Found Advance Directive Response Recorded Date/ Time Advance Directives No May 4:12pm Advance Directive Response Recorded Date/ Time Advance Directives No May 5:12pm Chief Complaint and Reason for Visit Chief Complaint R leg Lymphedema Chief Complaint Admit Date CONSULT CORINE CERVANTESING LT HIP PAIN,WX 2024 10:36am M25.552 - Pain in left hip August 10, 2024 11:42am Reason for Visit Admit Date Low back pain August 10, 2024 1 0:36am Primary osteoarthritis of left hip 2024 10:36am Primary osteoarthritis of right hip 2024 10:36am Chief Complaint Admit Date CONSULT CORINE APLING LT HIP PAIN,WX 2024 10:36am M25.552 - Pain in left hip August 10, 2024 11:42am Ref: abnormal gait- lower back pain Febr [facility] 2024 1:02pm Reason for Visit Admit Date Low back pain August 10, 2024 1 0:36am Primary osteoarthritis of left hip Julua ry 2024 10:36am Primary osteoarthritis of right hip Chinedu cate 2024 10:36am Ataxic gait August 26, 2024 1 :02pm Falls August 26, 2024 1 :02pm Upper extremity weakness August 26 1:02pm Chief Complaint Admit Date CONSULT CORINE APLING LT HIP PAIN,WX Chinedu cate 2024 10:36am M25.552 - Pain in left hip August 10, 2024 11:42am Ref: abnormal gait- lower back pain 2024 1:02pm HYPONATREMIA September 07, 2024 1:05pm Reason for Visit Admit Date Low back pain August 10, 2024 1 0:36am Primary osteoarthritis of left hip Julua 2024 10:36am Primary osteoarthritis of right hip Chinedu cate 2024 10:36am Ataxic gait August 26, 2024 1 :02pm Fall August 26, 2024 1 :02pm Falls August 26, 2024 1 :02pm Injury of head, face and neck August 262024 1:02pm Loss of consciousness August 26, 2024 1:02pm Upper extremity weakness August 26 1:02pm Hyponatremia September 07, 2024 1:05pm Imbalance September 07, 2024 1:05pm Primary hypertension September 07, 2024 1:05pm Chief Complaint Admit Date CONSULT CORINE APLING LT HIP PAIN,WX Chinedu price2024 10:36am M25.552 - Pain in left hip August 10, 2024 11:42am Ref: abnormal gait- lower back pain 2024 1:02pm HYPONATREMIA September 07, 2024 1:05pm e87.1 September 07, 2024 1:59pm Chief Complaint Admit Date CONSULT CORINE APLING LT HIP PAIN,WX Chinedu cate 2024 10:36am M25.552 - Pain in left hip August 10, 2024 11:42am Ref: abnormal gait- lower back pain 2024 1:02pm HYPONATREMIA September 07, 2024 1:05pm e87.1 September 07, 2024 1:59pm R26.0 September 20, 2024 9:06 am Chief Complaint Admit Date CONSULT CORINE OJEDA LT HIP PAIN,WX Chinedu cate 2024 10:36am M25.552 - Pain in left hip August 10, 2024 11:42am Ref: abnormal gait- lower back pain [facility] 2024 1:02pm HYPONATREMIA September 07, 2024 1:05pm e87.1 September 07, 2024 1:59pm R26.0 September 20, 2024 9:06 am MRI results September 23, 2024 1:50 pm Chief Complaint Admit Date CONSULT CORINE OJEDA LT HIP PAIN,WX Chinedu cate 2024 10:36am M25.552 - Pain in left hip August 10, 2024 11:42am Ref: abnormal gait- lower back pain [facility] 2024 1:02pm HYPONATREMIA September 07, 2024 1:05pm e87.1 September 07, 2024 1:59pm R26.0 September 20, 2024 9:06 am MRI results September 23, 2024 1:50 pm seizure? dizzy, head pain September 30 12:32pm Reason for Visit Admit Date Low back pain August 10, 2024 1 0:36am Primary osteoarthritis of left hip ry 2024 10:36am Primary osteoarthritis of right hip Chinedu 2024 10:36am Ataxic gait August 26, 2024 1 :02pm Fall August 26, 2024 1 :02pm Falls August 26, 2024 1 :02pm Injury of head, face and neck August 262024 1:02pm Loss of consciousness August 26, 2024 1:02pm Upper extremity weakness August 26 1:02pm Hyponatremia September 07, 2024 1:05pm Imbalance September 07, 2024 1:05pm Primary hypertension September 07, 2024 1:05pm Ataxic gait September 23, 2024 1:50 pm Cervical myelopathy September 23, 2024 1:50 pm Upper extremity weakness September 23, 2024 1:50pm Acute confusion September 30, 2024 12: 32pm Seizure September 30, 2024 12: 32pm TIA (transient ischemic attack) September 302024 12:32pm Reason for Visit Admit Date Low back pain August 10, 2024 1 0:36am Primary osteoarthritis of left hip Julua ry 2024 10:36am Primary osteoarthritis of right hip Chinedu cate 2024 10:36am Ataxic gait August 26, 2024 1 :02pm Fall August 26, 2024 1 :02pm Falls August 26, 2024 1 :02pm Injury of head, face and neck August 262024 1:02pm Loss of consciousness August 26, 2024 1:02pm Upper extremity weakness August 26 1:02pm Hyponatremia September 07, 2024 1:05pm Imbalance September 07, 2024 1:05pm Primary hypertension September 07, 2024 1:05pm Ataxic gait September 23, 2024 1:50 pm Cervical myelopathy September 23, 2024 1:50 pm Upper extremity weakness September 23, 2024 1:50pm Acute confusion September 30, 2024 12: 32pm Cervical myelopathy September 30, 2024 12: 32pm Primary hypertension September 30, 2024 12 :32pm Seizure September 30, 2024 12: 32pm Sleep apnea September 30, 2024 12: 32pm Smoker September 30, 2024 12: 32pm TIA (transient ischemic attack) September 302024 12:32pm Chief Complaint Admit Date CONSULT CORINE OJEDA LT HIP PAIN,WX Chinedu 2024 10:36am M25.552 - Pain in left hip August 10, 2024 11:42am Ref: abnormal gait- lower back pain [facility] 2024 1:02pm HYPONATREMIA September 07, 2024 1:05pm e87.1 September 07, 2024 1:59pm R26.0 September 20, 2024 9:06 am MRI results September 23, 2024 1:50 pm seizure? dizzy, head pain September 30 12:32pm surgical consult October 06, 2024 2:1 3pm Reason for Visit Admit Date Low back pain August 10, 2024 1 0:36am Primary osteoarthritis of left hip Julua ry 2024 10:36am Primary osteoarthritis of right hip Chinedu cate 2024 10:36am Ataxic gait August 26, 2024 1 :02pm Fall August 26, 2024 1 :02pm Falls August 26, 2024 1 :02pm Injury of head, face and neck August 262024 1:02pm Loss of consciousness August 26, 2024 1:02pm Upper extremity weakness August 26 025 1:02pm Hyponatremia September 07, 2024 1:05pm Imbalance September 07, 2024 1:05pm Primary hypertension September 07, 2024 1:05pm Ataxic gait September 23, 2024 1:50 pm Cervical myelopathy September 23, 2024 1:50 pm Upper extremity weakness September 23, 2024 1:50pm Acute confusion September 30, 2024 12: 32pm Cervical myelopathy September 30, 2024 12: 32pm Primary hypertension September 30, 2024 12 :32pm Seizure September 30, 2024 12: 32pm Sleep apnea September 30, 2024 12: 32pm Smoker September 30, 2024 12: 32pm TIA (transient ischemic attack) September 302024 12:32pm Cervical myelopathy October 06, 2024 2:1 3pm Chief Complaint Admit Date CONSULT CORINE OJEDA LT HIP PAIN,WX Chinedu price2024 10:36am M25.552 - Pain in left hip August 10, 2024 11:42am Ref: abnormal gait- lower back pain [facility] 2024 1:02pm HYPONATREMIA September 07, 2024 1:05pm e87.1 September 07, 2024 1:59pm R26.0 September 20, 2024 9:06 am MRI results September 23, 2024 1:50 pm seizure? dizzy, head pain September 30 12:32pm surgical consult October 06, 2024 2:1 3pm G95.9 October 12, 2024 2:0 6pm Reason for Visit Admit Date Low back pain August 10, 2024 1 0:36am Primary osteoarthritis of left hip Julua ry 2024 10:36am Primary osteoarthritis of right hip Chinedu cate 2024 10:36am Ataxic gait August 26, 2024 1 :02pm Fall August 26, 2024 1 :02pm Falls August 26, 2024 1 :02pm Injury of head, face and neck August 262024 1:02pm Loss of consciousness August 26, 2024 1:02pm Upper extremity weakness February 6th, 2 025 1:02pm Hyponatremia September 07, 2024 1:05pm Imbalance September 07, 2024 1:05pm Primary hypertension September 07, 2024 1:05pm Ataxic gait September 23, 2024 1:50 pm Upper extremity weakness September 23, 2024 1:50pm Cervical myelopathy September 23, 2024 1:50 pm Sleep apnea September 30, 2024 12: 32pm Smoker September 30, 2024 12: 32pm Acute confusion September 30, 2024 12: 32pm Cervical myelopathy September 30, 2024 12: 32pm Primary hypertension September 30, 2024 12 :32pm Seizure September 30, 2024 12: 32pm TIA (transient ischemic attack) September 302024 12:32pm Cervical myelopathy October 06, 2024 2:1 3pm Chief Complaint Admit Date CONSULT CORINE OJEDA LT HIP PAIN,WX Chinedu cate 2024 10:36am M25.552 - Pain in left hip August 10, 2024 11:42am Ref: abnormal gait- lower back pain [facility] 2024 1:02pm HYPONATREMIA September 07, 2024 1:05pm e87.1 September 07, 2024 1:59pm R26.0 September 20, 2024 9:06 am MRI results September 23, 2024 1:50 pm seizure? dizzy, head pain September 30 12:32pm surgical consult October 06, 2024 2:1 3pm G95.9 October 12, 2024 2:0 6pm Cervical Myelopathy October 21, 2024 9:47 am Chief Complaint Admit Date Ref: abnormal gait- lower back pain [facility] 2024 1:02pm HYPONATREMIA September 07, 2024 1:05pm e87.1 September 07, 2024 1:59pm R26.0 September 20, 2024 9:06 am MRI results September 23, 2024 1:50 pm seizure? dizzy, head pain September 30 12:32pm surgical consult October 06, 2024 2:1 3pm G95.9 October 12, 2024 2:0 6pm Cervical Myelopathy October 21, 2024 9:47 am Cervical Myelopathy November 04, 2024 5:4 4am Cervical Myelopathy November 04, 2024 10: 50am Cervical Myelopathy November 04, 2024 7:2 0pm Cervical Myelopathy November 05, 2024 7:5 5am Cervical Myelopathy November 11, 2024 8:0 1am Cervical Myelopathy November 12, 2024 8:5 2am Reason for Visit Admit Date Ataxic gait August 26, 2024 1 :02pm Fall August 26, 2024 1 :02pm Falls August 26, 2024 1 :02pm Injury of head, face and neck August 262024 1:02pm Loss of consciousness August 26, 2024 1:02pm Upper extremity weakness August 26 1:02pm Hyponatremia September 07, 2024 1:05pm Imbalance September 07, 2024 1:05pm Primary hypertension September 07, 2024 1:05pm Ataxic gait September 23, 2024 1:50 pm Cervical myelopathy September 23, 2024 1:50 pm Upper extremity weakness September 23, 2024 1:50pm Cervical myelopathy September 30, 2024 12: 32pm Sleep apnea September 30, 2024 12: 32pm Smoker September 30, 2024 12: 32pm Acute confusion September 30, 2024 12: 32pm Primary hypertension September 30, 2024 12 :32pm Seizure September 30, 2024 12: 32pm TIA (transient ischemic attack) September 302024 12:32pm Cervical myelopathy October 06, 2024 2:1 3pm Acute respiratory failure with hypoxia a nd hypercapnia November 04, 2024 5:44am Alcohol abuse November 04, 2024 5:4 4am Cervical myelopathy November 04, 2024 5:4 4am Difficult airway for intubation November 042024 5:44am JULI on CPAP November 04, 2024 5:4 4am Partial obstruction of airway October 5:44am Stridor November 04, 2024 5:4 4am Chief Complaint Admit Date Ref: abnormal gait- lower back pain Febr uary 2024 1:02pm HYPONATREMIA September 07, 2024 1:05pm e87.1 September 07, 2024 1:59pm R26.0 September 20, 2024 9:06 am MRI results September 23, 2024 1:50 pm seizure? dizzy, head pain September 30 12:32pm surgical consult October 06, 2024 2:1 3pm G95.9 October 12, 2024 2:0 6pm Cervical Myelopathy October 21, 2024 9:47 am Cervical Myelopathy November 04, 2024 5:4 4am Cervical Myelopathy November 04, 2024 10: 50am Cervical Myelopathy November 04, 2024 7:2 0pm Cervical Myelopathy November 05, 2024 7:5 5am Cervical Myelopathy November 11, 2024 8:0 1am Cervical Myelopathy November 12, 2024 8:5 2am cervical myelopathy s/p C3-6 LAMI /Fusio n November 12, 2024 2:36pm cervical myelopathy s/p C3-6 LAMI /Fusio n November 14, 2024 9:41am Reason for Visit Admit Date Ataxic gait August 26, 2024 1 :02pm Fall August 26, 2024 1 :02pm Falls August 26, 2024 1 :02pm Injury of head, face and neck August 262024 1:02pm Loss of consciousness August 26, 2024 1:02pm Upper extremity weakness August 26, 025 1:02pm Hyponatremia September 07, 2024 1:05pm Imbalance September 07, 2024 1:05pm Primary hypertension September 07, 2024 1:05pm Ataxic gait September 23, 2024 1:50 pm Cervical myelopathy September 23, 2024 1:50 pm Upper extremity weakness September 23, 2024 1:50pm Cervical myelopathy September 30, 2024 12: 32pm Sleep apnea September 30, 2024 12: 32pm Smoker September 30, 2024 12: 32pm Acute confusion September 30, 2024 12: 32pm Primary hypertension September 30, 2024 12 :32pm Seizure September 30, 2024 12: 32pm TIA (transient ischemic attack) September 302024 12:32pm Cervical myelopathy October 06, 2024 2:1 3pm Acute respiratory failure with hypoxia a nd hypercapnia November 04, 2024 5:44am Alcohol abuse November 04, 2024 5:4 4am Cervical myelopathy November 04, 2024 5:4 4am Difficult airway for intubation November 042024 5:44am JULI on CPAP November 04, 2024 5:4 4am Partial obstruction of airway October 5:44am Stridor November 04, 2024 5:4 4am Acute respiratory failure with hypoxia a nd hypercapnia November 12, 2024 2:36pm Alcohol abuse November 12, 2024 2:3 6pm BPH (benign prostatic hyperplasia) November 12, 2024 2:36pm Cervical myelopathy November 12, 2024 2:3 6pm Depression November 12, 2024 2:3 6pm Hypertension November 12, 2024 2:3 6pm Impaired mobility and activities of sherlyn y living November 12, 2024 2:36pm JULI on CPAP November 12, 2024 2:3 6pm Partial obstruction of airway October 2:36pm Assessments No Assessments Information Available Reason for Referral Specialty Diagnoses / Procedures Referred By Ashlyn t Referred To Contact Diagnoses Preop examination Hypertension, unspecified type Sleep apnea, unspecified type Procedures ECG 12 lead Edmundo Day DO [address] [facility] [address] [place] [address] Referral ID Status Reason Start Date Expiration Date V isits Requested Visits Authorized [id number] Pending Review 12/10/2023 12/09/2024 1 1 Additional Source Comments (unrecognized sect ion and content) No Status Records FoundNo Status Records FoundNo Status Records FoundNo Status Records FoundNo Status Records FoundNo Status Records Found INFORMATION SOURCE (unrecogn ized section and content) DATE CREATED AUTHOR 05/03/2020 [facility] DATE CREATED AUTHOR AUTHOR'S ORGANIZ ATION 02/07/2024 [facility] DATE CREATED AUTHOR AUTHOR'S ORGANIZ ATION 06/25/2024 [facility] DATE CREATED AUTHOR AUTHOR'S ORGANIZ ATION 10/31/2024 [facility] DATE CREATED AUTHOR AUTHOR'S ORGANIZ ATION 11/28/2024 [facility] DATE CREATED AUTHOR AUTHOR'S ORGANIZ ATION 12/01/2024 [facility] EPIC Care Teams (unrecognized sec tion and content) Team Status: Active Member Role Status Dates [place] Ash Primary Care Provider Active Team Status: Inactive Member Role Status Dates [place] Ash Primary Care Provider Active Start: August 10, 2024 End: August 10, 2024 Bridger Douglas DO Attending Provider Active St art: August 10, 2024 End: August 10, 2024 Team Status: Inactive Member Role Status Dates Rolan Monaco SLABBER LIGHT-C Primary Care Provider Active Start: August 26, 2024 End: August 26, 2024 Florecne Beltran APRN Attending Provider Active Start: August 26, 2024 End: August 26, 2024 Team Status: Inactive Member Role Status Dates Rolan Monaco SLABBER LIGHT-C Primary Care Provider Active Start: September 07, 2024 End: September 07, 2024 Kelton Morin MD Attending Provider Active Star t: September 07, 2024 End: September 07, 2024 Team Status: Inactive Member Role Status Dates Rolan Monaco SLABBER LIGHT-C Primary Care Provider Active Start: September 20, 2024 End: September 20, 2024 Florence Beltran APRN Attending Provider Active Start: September 20, 2024 End: September 20, 2024 Team Status: Inactive Member Role Status Dates Rolan Monaco SLABBER LIGHT-C Primary Care Provider Active Start: September 23, 2024 End: September 23, 2024 Florence Beltran APRN Attending Provider Active Start: September 23, 2024 End: September 23, 2024 Team Status: Inactive Member Role Status Yuan Monaco SLABBER LIGHT-C Primary Care Provider Active Start: September 30, 2024 End: October 01, 2024 Lynette Richardson DO Emergency Provider Active Sta rt: September 30, 2024 End: October 01, 2024 Baron Ruggiero DO Admit Provider, Atte nding Provider Active Start: September 30, 2024 End: October 01, 2024 Team Status: Inactive Member Role Status Dates Rolan Monaco SLABBER LIGHT-C Primary Care Provider Active Start: October 06, 2024 End: October 06, 2024 Reyes Bridges DO Attending Provider Active S tart: October 06, 2024 End: October 06, 2024 Team Status: Inactive Member Role Status Yuan Monaco SLABBER LIGHT-C Primary Care Provider Active Start: October 12, 2024 End: October 12, 2024 Florence Beltran APRN Attending Provider Active Start: October 12, 2024 End: March 25th, 2025 Team Status: Inactive Member Role Status Dates Rolan Monaco , SLABBER LIGHT-C Primary Care Provider Active Start: October 21, 2024 End: October 21, 2024 Reyes Bridges DO Attending Provider Active S tart: October 21, 2024 End: October 21, 2024 Band Reamer Machine Operator Relationship Specialty Start Date End Date Rolan Monaoc, SLABBER LIGHT [address] [place] [address] PCP - ACO Reach 12/12/22 Band Reamer Machine Operator Relationship Specialty Start Date End Date Rolan Monaco, SLABBER LIGHT [address] [place] [address] PCP - ACO Reach 12/12/22 Band Reamer Machine Operator Relationship Specialty Start Date End Date Zayra Aquino MD [address] [place] [address] PCP - General Family Medicine 09/15/23 Rolan Monaco, SLABBER LIGHT [address] [place] [address] PCP - ACO Reach 11/19/23 Band Reamer Machine Operator Relationship Specialty Start Date End Date Zayra Aquino MD [address] [place] [address] PCP - General Family Medicine 09/15/23 Rolan Monaco, SLABBER LIGHT [address] [place] [address] PCP - ACO Reach 11/19/23 Band Reamer Machine Operator Relationship Specialty Start Date End Date Zayra Aquino MD [address] [place] [address] PCP - General Family Medicine 09/15/23 Rolan Monaco SLABBER LIGHT [address] [place] [address] PCP - ACO Reach 11/19/23 Band Reamer Machine Operator Relationship Specialty Start Date End Date Zayra Aquino MD [address] [place] [address] PCP - General Family Medicine 09/15/23 Rolan Monaco SLABBER LIGHT [address] [place] [address] PCP - ACO Reach 11/19/23 Band Reamer Machine Operator Relationship Specialty Start Date End Date Zayra Aquino MD [address] [place] [address] PCP - General Family Medicine 09/15/23 Rolan Monaco, SLABBER LIGHT [address] [place] [address] PCP - ACO Reach 11/19/23FridayGabriela LPN [address] [place] [address] Licensed Practical Nurse Family Medicine 05/06/24 Band Reamer Machine Operator Relationship Specialty Start Date End Date Zayra Aquino MD [address] [place] [address] PCP - General Family Medicine 09/15/23 Rolan Monaco, SLABBER LIGHT [address] [place] [address] PCP - ACO Reach 11/19/23 Band Reamer Machine Operator Relationship Specialty Start Date End Date Zayra Aquino MD [address] [place] [address] PCP - General Family Medicine 09/15/23 Rolan Monaco, SLABBER LIGHT [address] [place] [address] PCP - ACO Reach 11/19/23 Band Reamer Machine Operator Relationship Specialty Start Date End Date Zayra Aquino MD [address] [place] [address] PCP - General Family Medicine 09/15/23 Rolan Monaco, SLABBER LIGHT [address] [place] [address] PCP - ACO Reach 11/19/23 Band Reamer Machine Operator Relationship Specialty Start Date End Date Zayra Aquino MD [address] [place] [address] PCP - General Family Medicine 09/15/23 Rolan Monaco, SLABBER LIGHT [address] [place] [address] PCP - ACO Reach 11/19/23 Band Reamer Machine Operator Relationship Specialty Start Date End Date Zayra Aquino MD [address] [place] [address] PCP - General Family Medicine 09/15/23 Rolan Monaco, SLABBER LIGHT [address] [place] [address] PCP - ACO Reach 11/19/23 Band Reamer Machine Operator Relationship Specialty Start Date End Date Zayra Aqunio MD [address] [place] [address] PCP - General Family Medicine 09/15/23 Rolan Monaco NP [address] [place] [address] PCP - ACO Reach 11/19/23 Band Reamer Machine Operator Relationship Specialty Start Date End Date Zayra Aquino MD [address] [place] [address] PCP - General Family Medicine 09/15/23 Rolan Monaco SLABBER LIGHT [address] [place] [address] PCP - ACO Reach 11/19/23 Band Reamer Machine Operator Relationship Specialty Start Date End Date Zayra Aquino MD [address] [place] [address] PCP - General Family Medicine 09/15/23 Rolan Monaco SLABBER LIGHT [address] [place] [address] PCP - ACO Reach 11/19/23Friday, Gabriela, BRICKMASON SUPERVISOR [address] [place] [address] Licensed Practical Nurse Family Medicine 05/06/24 Band Reamer Machine Operator Relationship Specialty Start Date End Date Zayra Aquino MD [address] [place] [address] PCP - General Family Medicine 09/15/23 Rolan Monaco NP [address] [place] [address] PCP - ACO Reach 11/19/23Friday, Gabriela, BRICKMASON SUPERVISOR [address] [place] [address] Licensed Practical Nurse Family Medicine 05/06/24 Band Reamer Machine Operator Relationship Specialty Start Date End Date Zayra Aquino MD [address] [place] [address] PCP - General Family Medicine 09/15/23 Rolan Monaco, SLABBER LIGHT [address] [place] [address] PCP - ACO Reach 11/19/23Friday, Gabriela, BRICKMASON SUPERVISOR [address] [place] [address] Licensed Practical Nurse Family Medicine 05/06/24 Band Reamer Machine Operator Relationship Specialty Start Date End Date Zayra Aquino MD [address] [place] [address] PCP - General Family Medicine 09/15/23 Rolan Monaco, SLABBER LIGHT [address] [place] [address] PCP - ACO Reach 11/19/23Friday, Gabriela, BRICKMASON SUPERVISOR [address] [place] [address] Licensed Practical Nurse Family Medicine 05/06/24 Band Reamer Machine Operator Relationship Specialty Start Date End Date Zayra Aquino MD [address] [place] [address] PCP - General Family Medicine 09/15/23 Rolan Monaco, SLABBER LIGHT [address] [place] [address] PCP - ACO Reach 11/19/23Friday, Gabriela, BRICKMASON SUPERVISOR [address] [place] [address] Licensed Practical Nurse Family Medicine 05/06/24 Band Reamer Machine Operator Relationship Specialty Start Date End Date Zayra Aquino MD [address] [place] [address] PCP - General Family Medicine 09/15/23 Rolan Monaco, SLABBER LIGHT [address] [place] [address] PCP - ACO Reach 11/19/23Friday, Gabriela, BRICKMASON SUPERVISOR [address] [place] [address] Licensed Practical Nurse Family Medicine 05/06/24 Band Reamer Machine Operator Relationship Specialty Start Date End Date Zayra Aquino MD [address] [place] [address] PCP - General Family Medicine 09/15/23 Rolan Monaco, SLABBER LIGHT [address] [place] [address] PCP - ACO Reach 11/19/23Friday, Gabriela, BRICKMASON SUPERVISOR [address] [place] [address] Licensed Practical Nurse Family Medicine 05/06/24 Band Reamer Machine Operator Relationship Specialty Start Date End Date Zayra Aquino MD [address] [place] [address] PCP - General Family Medicine 09/15/23 Rolan Monaoc, SLABBER LIGHT [address] [place] [address] PCP - ACO Reach 11/19/23Friday, Gabriela, BRICKMASON SUPERVISOR [address] [place] [address] Licensed Practical Nurse Family Medicine 05/06/24 Team Status: Active Member Role Status Dates Rolan Monaco , SLABBER LIGHT-C Primary Care Provider Active Start: July 18, 2024 Suhail Zavala DO Attending Provider Active Sta rt: July 18, 2024 Team Status: Active Member Role Status Dates Rolan Monaco , SLABBER LIGHT-C Primary Care Provider Active Start: August 10, 2024 Bridger Douglas DO Attending Provider Active St art: August 10, 2024 Band Reamer Machine Operator Relationship Specialty Start Date End Date Zayra Aquino MD [address] [place] [address] PCP - General Family Medicine 09/15/23 Rolan Monaco, SLABBER LIGHT [address] [place] [address] PCP - ACO Reach 11/19/23FridayGabriela LPN [address] [place] [address] Licensed Practical Nurse Family Medicine 05/06/24 Band Reamer Machine Operator Relationship Specialty Start Date End Date Rolan Monaco, SALES REPRESENTATIVE [employer] [address] [place] [address] PCP - General Nurse Practitioner 05/25/20 Band Reamer Machine Operator Relationship Specialty Start Date End Date Zayra Aquino MD [address] [place] [address] PCP - General Family Medicine 09/15/23 Rolan Monaco, SLABBER LIGHT [address] [place] [address] PCP - ACO Reach 11/19/23 Fabiana Farias, PRITESH Licensed Practical Nurse Family Medicine 08/27/24 Band Reamer Machine Operator Relationship Specialty Start Date End Date Zayra Aquino MD [address] [place] [address] PCP - General Family Medicine 09/15/23 Rolan Monaco, SLABBER LIGHT [address] [place] [address] PCP - ACO Reach 11/19/23 Fabiana Farias, PRITESH Licensed Practical Nurse Family Medicine 08/27/24 Team Status: Active Member Role Status Dates Rolan Monaco , BRADEN-C Primary Care Provider Active Start: September 30, 2024 Lynette Richardson , Emergency Provider Active Sta rt: September 30, 2024 Baron Ruggiero , Admit Provider, Atte nding Provider Active Start: September 30, 2024 Band Reamer Machine Operator Relationship Specialty Start Date End Date Zayra Aquino MD [address] [place] [address] PCP - General Family Medicine 09/15/23 Rolan Monaco, SLABBER LIGHT [address] [place] [address] PCP - ACO Reach 11/19/23 Edith Tristan LPN 10/08/24 Band Reamer Machine Operator Relationship Specialty Start Date End Date Zayra Aquino MD [address] [place] [address] PCP - General Family Medicine 09/15/23 Rolan Monaco, BRADEN [address] [place] [address] PCP - ACO Reach 11/19/23 Edith Tristan LPN 10/08/24 Band Reamer Machine Operator Relationship Specialty Start Date End Date Zayra Aquino MD [address] [place] [address] PCP - General Family Medicine 09/15/23 Rolan Monaco NP [address] [place] [address] PCP - ACO Reach 11/19/23 Edith Tristan LPN 10/08/24 Band Reamer Machine Operator Relationship Specialty Start Date End Date Zayra Aquino MD [address] [place] [address] PCP - General Family Medicine 09/15/23 Rolan Monaco NP [address] [facility] [address] [place] [address] PCP - ACO Reach 11/19/23 Edith Tristan BRICKMASON SUPERVISOR 10/08/24 Team Status: Inactive Member Role Status Dates Rolan Monaco , SLABBER LIGHT-C Primary Care Provider Active Start: November 04, 2024 End: November 12, 2024 Reyes Bridges , DO Admit Provider, Att ending Provider Active Start: November 04, 2024 End: November 12, 2024 Vinicius Mathew , Other Provider Active Start : November 04, 2024 End: November 12, 2024 Anupama Mckeon MD Other Provider Active Start: Roger kay 2024 End: November 12, 2024 Sea Cevallos MD Other Provider Active Start: A peter 2024 End: November 12, 2024 Florence Beltran APRN Other Provider Active St art: November 04, 2024 End: November 12, 2024 Jimmy Padilla Jr, DO Other Provider Active S tart: November 04, 2024 End: November 12, 2024 Robert Brody MD Other Provider Active Start: November 04, 2024 End: November 12, 2024 Team Status: Active Member Role Status Dates Rolan Monaco , SLABBER LIGHT-C Primary Care Provider Active Start: November 04, 2024 Reyes Bridges , DO Admit Provider, Att ending Provider, Other Provider Active Start: November 04, 2024 Rupal Bowers APRN [facility]- Other Provider Active Start: November 04, 2024 Marciano Mar MD Other Provider Active Start: November 04, 2024 Alanna Ferguson MD Other Provider Active St art: November 04, 2024 Harjit Henderson MD Other Provider Active Start: A 2024 Nav Nichole DO Other Provider Active Start: November 04, 2024 Ronny Mccall DO Other Provider Active Start: November 04, 2024 Gurpreet Quiros MD Other Provider Active Start: A 2024 Lux Ervin MD Other Provider Active Start: November 04, 2024 Vandana Espitia MD Other Provider Active Start: A 2024 Brodie Nascimento MD Other Provider Active Start: November 04, 2024 Team Status: Active Member Role Status Dates Rolan Monaco , SLABBER LIGHT-C Primary Care Provider Active Start: November 04, 2024 Reyes Bridges , Admit Provider, Oth er Provider Active Start: November 04, 2024 Rupal Bowers APRN [facility]- Other Provider Active Start: November 04, 2024 Marciano Mar MD Other Provider Active Start: November 04, 2024 Alanna Ferguson MD Other Provider Active St art: November 04, 2024 Harjit Henderson MD Other Provider Active Start: A 2024 Nav Nichole DO Other Provider Active Start: November 04, 2024 Ronny Mccall DO Other Provider Active Start: November 04, 2024 Gurpreet Quiros MD Other Provider Active Start: A 2024 Lux Ervin MD Other Provider Active Start: November 04, 2024 Vandana Espitia MD Other Provider Active Start: A 2024 Brodie Nascimento MD Attending [facility], Other Provider Active Start: November 04, 2024 Team Status: Active Member Role Status Dates Rolan M [place] , SLABBER LIGHT-C Primary Care Provider Active Start: November 05, 2024 Reyes Bridges , DO Admit Provider, Att ending Provider, Other Provider Active Start: November 05, 2024 Rupal Bowers APRN [facility]- Other Provider Active Start: November 05, 2024 Marciano Mar MD Other Provider Active Start: November 05, 2024 Alanna Ferguson MD Other Provider Active St art: November 05, 2024 Harjit Henderson MD Other Provider Active Start: A pril 2024 Nav Nichole , Other Provider Active Start: November 05, 2024 Ronny Mccall , Other Provider Active Start: November 05, 2024 Gurpreet Quiros MD Other Provider Active Start: A pril 2024 Lux Ervin MD Other Provider Active Start: November 05, 2024 Vandana Espitia MD Other Provider Active Start: A pril 2024 Brodie Nascimento MD Other Provider Active Start: November 05, 2024 Team Status: Active Member Role Status Dates Rolan Monaco SLABBER L[employer]-C Primary Care Provider Active Start: November 11, 2024 Reyes Bridges , DO Admit Provider, Oth er Provider Active Start: November 11, 2024 Vinicius Mathew DO Other Provider Active Start : November 11, 2024 Marciano Mar MD Attending Provider Active Start: November 11, 2024 Team Status: Active Member Role Status Dates Rolan Monaco SLABBER LIGHT-C Primary Care Provider Active Start: November 12, 2024 Reyes Bridges , DO Admit Provider, Att ending Provider, Other Provider Active Start: November 12, 2024 Vinicius Mathew DO Other Provider Active Start : November 12, 2024 Anupama Mckeon MD Other Provider Active Start: Ap ril 2024 Sea Cevallos MD Other Provider Active Start: A pril 2024 Florence Beltran APRN Other Provider Active St art: November 12, 2024 Jimmy Padilla Jr, DO Other Provider Active S tart: November 12, 2024 Robert Brody MD Other Provider Active Start: November 12, 2024 Sheryl Khan RN Other Provider Active Star t: November 12, 2024 Aria Gayle , PRITESH Other Provider Active Start : November 12, 2024 Maria Alejandra Rapp RN Other Provider Active Star t: November 12, 2024 Bhavna Pat RN Other Provider Active Start: A pril 2024 Lamar Gutierrez RN Other Provider Active Start: Ap ril 2024 Laly Cevallos RN Other Provider Active Start: A l 2024 Nirav Barboza MD Other Provider Active Start: November 12, 2024 Jamie Woods DO Other Provider Active Start : November 12, 2024 Celestino Lopez MD Other Provider Active Start : November 12, 2024 Alexandre Nieto DO Other Provider Active Start: November 12, 2024 Abdirashid Mujica MD Other Provider Active Start: November 12, 2024 Ivette Isbell MD Other Provider Active Start : November 12, 2024 Nilson Terrell DO Other Provider Active St art: November 12, 2024 Christopher Chacon MD Other Provider Active Start: A l 2024 Juliane Haji APRN Other Provider Active Start: November 12, 2024 Shaheen Cosme MD Other Provider Active Start: November 12, 2024 Vinicius Graves MD Other Provider Active Start: A l 2024 Tenzin Quintero MD Other Provider Active Start: November 12, 2024 Gardenia Muhammad MD Other Provider Active Start: November 12, 2024 Nilson Zhang DO Other Provider Active Start: November 12, 2024 Makeda Crook MD Other Provider Active Start: Ap ril 2024 Kip Curry MD Other Provider Active Start: Oct Deb Rust SLABBER LIGHT-C Other Provider Active St art: November 12, 2024 Evelia Shipman APRN Other Provider Active Star t: November 12, 2024 Phil Quiroga MD Other Provider Active Start: November 12, 2024 Eligio Temple MD Other Provider Active Start: Ap ril 2024 Dank Cardona MD Other Provider Active Start: Oct il 2024 Arnlufo Brock MD Other Provider Active Star t: November 12, 2024 Chris Hall MD Other Provider Active Start: A 2024 Adelina Grossman , DO Other Provider Active Start: Ap 2024 Riley Hallman , DO Other Provider Active Start : November 12, 2024 Leslie Rice APRN Other Provider Active Start: November 12, 2024 Baron Ruggiero , DO Other Provider Active Start: November 12, 2024 Black Sanders MD Other Provider Active Sta rt: November 12, 2024 Izabela Vaughn APRN Other Provider Active Start : November 12, 2024 Donna Mondragon APRN Other Provider Active St art: November 12, 2024 Cathy Kaba MD Other Provider Active Start: A 2024 Raj Alicia MD Other Provider Active S tart: November 12, 2024 Jake Michael , DO Other Provider Active Star t: November 12, 2024 Dinesh Christianson , DO Other Provider Active Start: November 12, 2024 Jan Cardona MD Other Provider Active Start: November 12, 2024 Dariel Vallejo MD Other Provider Active Start: November 12, 025 Angelica Gill APRN Other Provider Active Star t: November 12, 2024 Gordo Arriaza MD Other Provider Active Start: A 2024 Michael Luong MD Other Provider Active Start: Ap ril 2024 Sea King MD Other Provider Active Start: November 12, 2024 Christopher Hernandez MD Other Provider Active Start : November 12, 2024 London Fisher MD Other Provider Active Start: A 2024 Kari Herrera APRN Other Provider Active Sta rt: November 12, 2024 Angela Leach APRN Other Provider Active Start: November 12, 025 Janet Kowalski RN Other Provider Active Start: A pril 2024 Team Status: Inactive Member Role Status Dates Rolan Monaco , SLABBER LIGHT-C Primary Care Provider Active Start: November 12, 2024 End: November 15, 2024 Sea Cevallos MD Admit Provider, Atte nding Provider Active Start: November 12, 2024 End: November 15, 2024 Sheryl Khan RN Other Provider Active Star t: November 12, 2024 End: November 15, 2024 Aria Gayle RN Other Provider Active Start : November 12, 2024 End: November 15, 2024 Maria Alejandra Rapp RN Other Provider Active Star t: November 12, 2024 End: November 15, 2024 Bhavna Pat RN Other Provider Active Start: A 2024 End: November 15, 2024 Lamar Gutierrez RN Other Provider Active Start: Ap 2024 End: November 15, 2024 Laly Cevallos RN Other Provider Active Start: A 2024 End: November 15, 2024 Nirav Barboza MD Other Provider Active Start: November 12, 2024 End: November 15, 2024 Jamie Woods DO Other Provider Active Start : November 12, 2024 End: November 15, 2024 Celestino Lopez MD Other Provider Active Start : November 12, 2024 End: November 15, 2024 Alexandre Nieto DO Other Provider Active Start: November 12, 2024 End: November 15, 2024 Abdirashid Mujica MD Other Provider Active Start: November 12, 2024 End: November 15, 2024 Ivette Isbell MD Other Provider Active Start : November 12, 2024 End: November 15, 2024 Nilson Terrell DO Other Provider Active St art: November 12, 2024 End: November 15, 2024 Christopher Chacon MD Other Provider Active Start: A 2024 End: November 15, 2024 Juliane Haji APRN Other Provider Active Start: November 12, 2024 End: November 15, 2024 Shaheen Cosme MD Other Provider Active Start: November 12, 2024 End: November 15, 2024 Vinicuis Graves MD Other Provider Active Start: A 2024 End: November 15, 2024 Tenzin Quintero MD Other Provider Active Start: November 12, 2024 End: November 15, 2024 Gardenia Muhammad MD Other Provider Active Start: November 12, 2024 End: November 15, 2024 Nilson Zhang DO Other Provider Active Start: November 12, 2024 End: November 15, 2024 Makeda Crook MD Other Provider Active Start: Ap ril 2024 End: November 15, 2024 Kip Curry MD Other Provider Active Start: Oct End: November 15, 2024 Deb Rust , SLABBER LIGHT-C Other Provider Active St art: November 12, 2024 End: November 15, 2024 Evelia Shipman APRN Other Provider Active Star t: November 12, 2024 End: November 15, 2024 Phil Quiroga MD Other Provider Active Start: November 12, 2024 End: November 15, 2024 Eligio Temple MD Other Provider Active Start: Ap ril 2024 End: November 15, 2024 Dank Cardona MD Other Provider Active Start: Oct il 2024 End: November 15, 2024 Arnulfo Brock MD Other Provider Active Star t: November 12, 2024 End: November 15, 2024 Chris Hall MD Other Provider Active Start: A pril 2024 End: November 15, 2024 Adelina Grossman DO Other Provider Active Start: Ap ril 2024 End: November 15, 2024 Riley Hallman DO Other Provider Active Start : November 12, 2024 End: November 15, 2024 Leslie Rice APRN Other Provider Active Start: November 12, 2024 End: November 15, 2024 Baron Ruggiero DO Other Provider Active Start: November 12, 2024 End: November 15, 2024 Black Sanders MD Other Provider Active Sta rt: November 12, 2024 End: November 15, 2024 Izabela Vaughn APRN Other Provider Active Start : November 12, 2024 End: November 15, 2024 Donna Mondragon APRN Other Provider Active St art: November 12, 2024 End: November 15, 2024 Cathy Kaba MD Other Provider Active Start: A pril 2024 End: November 15, 2024 Raj Alicia MD Other Provider Active S tart: November 12, 2024 End: November 15, 2024 Jake Michael DO Other Provider Active Star t: November 12, 2024 End: November 15, 2024 Dinesh Christianson DO Other Provider Active Start: November 12, 2024 End: November 15, 2024 Jan Cardona MD Other Provider Active Start: November 12, 2024 End: November 15, 2024 Dariel Vallejo MD Other Provider Active Start: November 12 End: November 15, 2024 Angelica Gill APRN Other Provider Active Star t: November 12, 2024 End: November 15, 2024 Gordo Arriaza MD Other Provider Active Start: A pril 2024 End: November 15, 2024 Michael Luong MD Other Provider Active Start: Ap ril 2024 End: November 15, 2024 Sea King MD Other Provider Active Start: November 12, 2024 End: November 15, 2024 Christopher Hernandez MD Other Provider Active Start : November 12, 2024 End: November 15, 2024 London Fisher MD Other Provider Active Start: A 2024 End: November 15, 2024 Kari Herrera APRN Other Provider Active Sta rt: November 12, 2024 End: November 15, 2024 Angela Leach APRN Other Provider Active Start: November 12 End: November 15, 2024 Janet Kowalski RN Other Provider Active Start: A 2024 End: November 15, 2024 Team Status: Active Member Role Status Dates Rolan Monaco , SLABBER LIGHT-C Primary Care Provider Active Start: November 14, 2024 Sea Cevallos MD Admit Provider, Othe r Provider Active Start: November 14, 2024 Sheryl Khan RN Other Provider Active Star t: November 14, 2024 Aria Gayle , PRITESH Other Provider Active Start : November 14, 2024 Maria Alejandra Rapp RN Other Provider Active Star t: November 14, 2024 Bhavna Pat RN Other Provider Active Start: A pril 2024 Lamar Gutierrez RN Other Provider Active Start: Ap ril 2024 Laly Cevallos RN Other Provider Active Start: A pril 2024 Nirav Barboza MD Other Provider Active Start: November 14, 2024 Jamie Woods , Other Provider Active Start : November 14, 2024 Celestino Lopez MD Other Provider Active Start : November 14, 2024 Alexandre Nieto DO Other Provider Active Start: November 14, 2024 Abdirashid Mujica MD Other Provider Active Start: November 14, 2024 Ivette Isbell MD Other Provider Active Start : November 14, 2024 Nilson Terrell DO Other Provider Active St art: November 14, 2024 Christopher Chacon MD Other Provider Active Start: A pril 2024 Juliane Haji SALES REPRESENTATIVE [employer] Other Provider Active Start: November 14, 2024 Shaheen Cosme MD Other Provider Active Start: November 14, 2024 Vinicius Graves MD Other Provider Active Start: A pril 2024 Tenzin Quintero MD Other Provider Active Start: November 14, 2024 Gardenia Muhammad MD Other Provider Active Start: November 14, 2024 Nilson Zhang DO Other Provider Active Start: November 14, 2024 Makeda Crook MD Other Provider Active Start: Ap ril 2024 Kip Curry MD Other Provider Active Start: Apr il 2024 [place] Hernández Other Provider Active St art: November 14, 2024 Evelia Shipman SALES REPRESENTATIVE [employer]IST[employer] Other Provider Active Star t: November 14, 2024 Phil Quiroga MD Other Provider Active Start: November 14, 2024 Eligio Temple MD Other Provider Active Start: Ap ril 2024 Dank Cardona MD Other Provider Active Start: Apr il 2024 Arnulfo Brock MD Other Provider Active Star t: November 14, 2024 Chris Hall MD Other Provider Active Start: A pril 2024 Adelina Grossman DO Other Provider Active Start: Ap ril 2024 Riley Hallman DO Other Provider Active Start : November 14, 2024 Leslie Rice , SALES REPRESENTATIVE [employer]IST[employer] Other Provider Active Start: November 14, 2024 Baron Ruggiero DO Other Provider Active Start: November 14, 2024 Black Sanders MD Other Provider Active Sta rt: November 14, 2024 Izabela Vaughn APRN Other Provider Active Start : November 14, 2024 Donna Mondragon APRN Other Provider Active St art: November 14, 2024 Cathy Kaba MD Other Provider Active Start: A pril 2024 Raj Alicia MD Other Provider Active S tart: November 14, 2024 Jake Michael , Other Provider Active Star t: November 14, 2024 Dinesh Christianson DO Other Provider Active Start: November 14, 2024 Jan Cardona MD Other Provider Active Start: November 14, 2024 Dariel Vallejo MD Other Provider Active Start: November 14, 025 Angelica Gill APRN Other Provider Active Star t: November 14, 2024 Gordo Arriaza MD Other Provider Active Start: A pril 2024 Michael Luong MD Other Provider Active Start: Ap ril 2024 Sea King MD Other Provider Active Start: November 14, 2024 Christopher Hernandez MD Other Provider Active Start : November 14, 2024 London Fisher MD Other Provider Active Start: A pril 2024 Kari Herrera APRN Other Provider Active Sta rt: November 14, 2024 Angela Leach APRN Other Provider Active Start: November 14, 025 Janet Kowalski RN Other Provider Active Start: A pril 2024 Reyes Bridges DO Attending Provider Active S tart: November 14, 2024 Band Reamer Machine Operator Relationship Specialty Start Date End Date Zayra Aquino MD [address] [facility] [address] [place] [address] PCP - General Family Medicine 09/15/23 Rolan Monaco NP [address] [facility] [address] [place] [address] PCP - ACO Reach 11/19/23 Edith Tristan LPN 10/08/24 Band Reamer Machine Operator Relationship Specialty Start Date End Date Zayra Aquino MD [address] [facility] [address] [place] [address] PCP - General Family Medicine 09/15/23 Rolan Monaco NP [address] [facility] [address] [place] [address] PCP - ACO Reach 11/19/23 Edith Tristan LPN 10/08/24 Reason for Visit (unrecogniz ed section and content) Reason Comments Follow-up Rt lesions Reason Comments Follow-up Specialty Diagnoses / Procedures Referred By Ashlyn hawthorne Referred To Contact Physical Therapy Diagnoses Presence of artificial knee joint, right Procedures AR OFFICE/OUTPATIENT NEW HIGH MDM 60 MINUTES Edmundo Day, DO [address] [facility] [address] [place] [address] Luis Eduardo Mas, PT [address] [facility] [address] [place] [address] Referral ID Status Reason Start Date Expiration Date Visits Requested Visits Authorized [id number] Authorized Specialty Services Required 02/04/2024 08/02/2024 18 18 Reason Onset Date Comments re: fu 03/16/[address] Day said he was pleased w/ his status and progress is good; no need to continue w/ PT. He said he was happy w/ his status as well and thankful for the PT he received. Reason Comments Plantar Warts Left ft lesions Reason Comments Follow-up LESIONS Reason Comments Follow-up [facility] 07/16/24 Results Lab result 07/19/24 Goals (unrecognized section and content) Goals may be documented in a n alternate sectionGoals may be documented in an alternate sectionGoals may be documented in an alternate sectionNot on filedocumented as of this encounterGoals may be documented in an alternate sectionGoals may be documented in an alternate sectionGoals may be documented in an alternate sectionGoals may be documented in an alternate section FOR RECORDS PERTAINING TO PATIENTS WHO ARE [...] BE BASED ON THE PRIMARY CLINICAL RECORDS. [facility] [facility] provides no warranty or guarantee of the accuracy or completeness of information in this document.
== END 2024-12-02 10:46 | disposition home or self-care (01) ==
LOC: RAD 10:47
PROVIDERS: PCP Family Medicine; Visit Provider Nurse Practitioner Family
DX: R06.02 Shortness of breath (principal); R09.89 Other specified symptoms and signs involving the circulatory and respiratory systems
CPT/HCPCS: 71046